=== PATIENT | male | born 1970 | race Caucasian/White ===

== ENCOUNTER 2019-08-11 14:23 | Outpatient (RCR) | payer MEDICARE, SELFPAY | END 2019-08-29 00:01 | LOC: WOUND 14:23 | PROVIDERS: Family Provider Nurse Practitioner; Visit Provider Surgery | DX: I73.9 Peripheral vascular disease, unspecified (principal); L97.312 Non-pressure chronic ulcer of right ankle with fat layer exposed | CPT/HCPCS: 29581; 99212 ==

== ENCOUNTER 2019-09-28 09:17 | Outpatient (RCR) | payer MEDICARE, SELFPAY ==
--- NOTE | 2019-09-21 12:51 | XRR_ITS ---
PROCEDURE INFORMATION: Exam: XR Right Tibia and Fibula Exam date and time: 09/21/2019 1:27 PM Age: 48 years old Clinical indication: Condition or disease; Other: Non healing ulcer; Additional info: Pain/redness/non healing ulcer, lateral/distal TECHNIQUE: Imaging protocol: XR Right tibia and fibula. Views: 2 views. COMPARISON: US soft tissue/extremity [id number] 09/21/2019 12:58 PM FINDINGS: Bones/joints: Negative for acute bony abnormality Soft tissues: There is diffuse soft tissue calcifications in the medial aspect of the lower leg XR/XR tibia fibula RT 2V [id number] IMPRESSION: No acute bone abnormality. Diffuse soft tissue calcifications lower leg
--- NOTE | 2019-09-21 12:51 | US_ITS ---
WS: [id number] ULTRASOUND SOFT TISSUES RIGHT leg HISTORY: EDEMA/PAIN/NON HEALING ULCER COMPARISON: None available. TECHNIQUE: 2-D and color Doppler imaging is submitted. Ultrasound over the area of nodularity corresponds to 2 chronic superficial thrombophlebitis of a cari icosity. There is thrombus and probably some associated calcium. US/US soft tissue/extremity [id number] IMPRESSION: Soft tissue nodularity corresponds to an area of superficial thrombophlebitis.
== END 2019-09-29 23:59 | disposition home or self-care (01) ==
LOC: RAD 09:17
PROVIDERS: Family Provider Nurse Practitioner; PCP Nurse Practitioner; Visit Provider Nurse Practitioner Family
DX: I87.2 Venous insufficiency (chronic) (peripheral) (principal); L97.822 Non-pressure chronic ulcer of other part of left lower leg with fat layer exposed
CPT/HCPCS: 29581; 73590; 76882; 99214; G0463

== ENCOUNTER 2019-10-26 09:39 | Outpatient (RCR) | payer MEDICARE, SELFPAY ==
--- NOTE | 2019-11-06 14:00 | CT_ITS ---
WS: [id number] CT ANGIOGRAPHY OF THE ABDOMINAL AORTA WITH RUNOFF TO THE ANKLES HISTORY: I87.2 - Venous insufficiency (chronic) (peripheral) TECHNIQUE: Arterial injection is performed during imaging to evaluate the aorta and runoff vessels to the ankles. MIP and volume rendering imaging has also been performed. All images are reviewed. All C T scans at [facility] use at least one of these dose optimization techniques: automated ex posure control; mA and/or kV adjustment per patient size (includes targeted exams where dose is match ed to clinical indication); or iterative reconstruction. Contrast: Omnipaque 350; 190 mL IV. DLP: 5576.02 mGy.cm COMPARISON: None available. Quality of this examination is limited due to patient's body habitus. Mild dependent changes at the lung bases. Very small layering LEFT pleural effusion. Heart size is s lightly enlarged. Small hiatal hernia. Gallbladder and spleen are negative. Pancreas and adrenal glan ds negative. Gallbladder is slightly contracted. Kidney size is normal. There is good enhancement eac h kidney. Several cortical cysts in the RIGHT kidney with the largest measuring 15 mm. Small inguinal lymph nodes. Small obturator lymph nodes. Largest lymph nodes measure up to 12 mm. Largest along the LEFT distal external iliac chain. Extensive calcifications in the soft tissues of the lower extremity. Aorta: Mild atherosclerosis of aorta. No aneurysm. Single-vessel renal arteries. Celiac axis, SMA and LIZA are patent. RIGHT lower extremity arterial system: Opacification is limited but there is no significant stenosis from the LEFT common iliac artery through the popliteal artery. Poor runoff to the ankles but this is in part limited by slow flow. LEFT lower extremity fracture system: LEFT common iliac artery through the popliteal artery is patent . No significant stenosis or occlusion. No aneurysm. Limited flow to the ankles inferior to the popli teal artery is predominantly due to delayed runoff and patient's size. There are scattered calcificat ions but no occlusions are identified.
== END 2019-10-28 23:59 | disposition home or self-care (01) ==
LOC: WOUND 09:39
PROVIDERS: Family Provider Nurse Practitioner; PCP Nurse Practitioner; Visit Provider Nurse Practitioner Family
DX: L97.822 Non-pressure chronic ulcer of other part of left lower leg with fat layer exposed (principal); I87.2 Venous insufficiency (chronic) (peripheral); I73.9 Peripheral vascular disease, unspecified; I70.0 Atherosclerosis of aorta
CPT/HCPCS: 11042; 29581; 87070; 87077; 87176; 87186; 87205; 99214; 99215; G0463

== ENCOUNTER 2019-11-01 21:47 | Inpatient (IN) | payer MEDICARE, SELFPAY ==
[2019-11-01] VITALS (7 sets, daily range): BP systolic 125; BP diastolic 77; PULSE 130; RESP 18–37; TEMP 37.7; O2SAT 85–94; BMI 36.5
--- NOTE | 2019-11-01 21:46 | ED_ITS ---
Entered by Amanda Luna, acting as scribe for Sulma Butler MD HPI - Seizure General: Chief Complaint: Seizure Stated Complaint: seizures Time Seen by Provider: 11/01/19 21:47 Source: EMS Mode of arrival: EMS Limitations: altered mental status (seizing) History of Present Illness: HPI Narrative: 48 y/o male presents to the ED with seizures. EMS states he is a known epileptic but has not had a seizure for the past year. Family called EMS at dinner time when they thought he was choking. Upon EMS arrival, they realized he was seizing. Pt takes Phenytoin 100mg daily. It is estimated that his first episode occurred around 2124. The episodes witnessed by EMS have lasted approx 2 min each. Upon arrival at [facility] [place], pt was in his 4th seizure. MD complaint: seizure Onset (ago): minute(s) (15) Witnessed: Yes - by EMS Trauma: No Seizure History: Yes Place: Home Associated symptoms: Deny chest pain, chills or fever(s) Review of Systems General: Reports: ROS unobtainable due to medical condition (seizing) Const: Denies: fever, chills, body aches or change in appetite Eyes: Denies: blurry vision or eye discomfort ENMT: Denies: throat pain or dental pain Card: Denies: chest pain Resp: Denies: shortness of breath GI: Denies: abdominal pain, nausea, vomiting or diarrhea : Denies: painful urination Musc: Denies: neck pain or back pain Skin/Breast: Denies: rash Neuro: Denies: headache Psych: Denies: depression Huseyin/Lymph: Denies: easy bruising All/Imm: Denies: hives PFS ED PFSH: Medical History (Updated 11/02/19 @ 01:17 by Sulma Butler MD) Hypertension Intellectual disability Leukocytosis Morbid obesity Nonhealing nonsurgical wound Peripheral vascular disease Seizure Venous stasis dermatitis Surgical History (Updated 10/22/19 @ 16:46 by Nelia Cabrera MD) S/P vein stripping Social History Smoking and tobacco status: unknown if ever smoked Alcohol intake: never Substance/Drug Use: never Household members: family History of recent travel: No Physical Exam Const: COMMON NORMALS: negative for oriented x3 EXAM LIMITATIONS: physical limitations (seizing) NUTRITIONAL APPEARANCE: obese HENMT: COMMON NORMALS: head/scalp atraumatic HEAD & SCALP: atraumatic Neck/C-Spine: COMMON NORMALS: supple Chest: COMMONS NORMALS: inspection of chest normal and palpation of chest normal Resp: COMMON NORMALS: normal respiratory effort, no retractions, no use of accessory muscles and clear to auscultation bilaterally AUSCULTATION: clear to auscultation bilaterally Cardio: COMMON NORMALS: regular rate, regular rhythm and no murmurs RATE: regular rate RHYTHM: regular rhythm GI: COMMON NORMALS: normal to inspection, nondistended, normoactive bowel sounds, soft to palpation, non-tender and no masses PALPATION: Yes soft Extremity: COMMON NORMALS: normal to inspection Neuro: COMMON NORMALS: negative for oriented x3 Skin: COMMON NORMALS: no wounds Course Vital Signs: Vital signs: Vital Signs Temperature 100 F H 11/01/19 21:50 Pulse Rate 73 11/02/19 00:27 Respiratory Rate 20 H 11/02/19 00:27 Blood Pressure 124/60 11/02/19 00:27 Pulse Oximetry 98 11/02/19 00:27 MDM - Seizure MDM Narrative: Medical decision making narrative: Patient presents here with seizure and was in epilepsy. Patient given multiple doses of Ativan and 1 g of Keppra. Patient's had no more seizure activity after the Keppra. Patient is now waking up and will respond to verbal stimuli. He is postictal. He is protecting his own airway now. Patient does have an elevated white count is likely due to his seizure. He does have wound to his left leg that is chronic in nature with maybe some mild cellulitis and will get blood cultures along with start vancomycin. Patient has no signs of meningitis. Spoke to hospitalist will admit to the ICU. Patient is on Dilantin and had a very low Dilantin level likely causing his seizure. Lab Data: Labs: Lab Results 11/01/19 11/01/19 11/01/19 Range/Units 21:55 22:40 22:41 WBC 20.9 H (4.0-10.0) 10^3/ uL RBC 4.69 (4.1-5.3) 10^6/u L Hgb 14.6 (11.7-16.6) g/dL Hct 44.7 (42.0-52.0) % MCV 95.3 H (80-94) fL MCH 31.1 (28.0-34.0) pg MCHC 32.7 (30.0-36.0) g/dL RDW 14.7 (12.1-15.1) % Plt Count 262 (130-400) 10^3/c mm MPV 9.8 (7.4-10.4) fL Neut % (Auto) 73.5 % Lymph % (Auto) 13.0 % [place] % (Auto) 7.7 % Eos % (Auto) 2.1 % Baso % (Auto) 0.4 % Neut # (Auto) 15.4 H (1.8-7.7) 10^3/u L Lymph # (Auto) 2.7 (0.8-4.8) 10^3/u L [place] # (Auto) 1.6 H (0.2-0.9) 10^3/u L Eos # (Auto) 0.4 (0.0-0.8) 10^3/u L Baso # (Auto) 0.1 (0.0-0.1) 10^3/u L Nucleated RBC % (a uto) 0 % Nucleated RBCs # 0.0 /100WBC Sodium 139 (136-145) mmol/L Potassium 4.4 (3.5-5.1) mmol/L Chloride 101 (98-107) mmol/L Carbon Dioxide 17 L (22-29) mmol/L Anion Gap 25.4 H (5-19) BUN 13 (6-20) mg/dL Creatinine 1.0 (0.7-1.2) mg/dL GFR Calculation 80.1 L (90-130) mL/min Glucose 161 H (65-115) mg/dL Calcium 10.0 (8.5-10.5) mg/dL Total Bilirubin 0.4 (0.15-1.2) mg/dL AST 30 (0-40) U/L ALT 19 (0-41) U/L Alkaline Phosphata se 120 (40-130) IU/L Total Protein 8.2 (6.6-8.7) g/dL Albumin 4.6 (3.5-5.2) g/dL Globulin 3.6 (1.3-4.6) g/dL Urine Color (Yellow) Urine Appearance (CLEAR) Urine pH (5-7) Ur Specific Gravit y (1.005-1.030) Urine Protein (Negative) Urine Glucose (UA) (Normal) Urine Ketones (Negative) Urine Blood (Negative) Urine Nitrate (Negative) Urine Bilirubin (NEGATIVE) Urine Urobilinogen (Negative) mg/dL Ur Leukocyte [place] (Negative) Urine RBC (0-2) /hpf Urine WBC (0-5) /hpf Ur Squamous Epith Cells (0-5) Amorphous Sediment Urine Bacteria (NONE) Fine Granular Cast s /lpf Urine Opiates Scre en (Negative) ng/mL Ur Barbiturates Sc reen (Negative) ng/mL Phenytoin 1.3 L (10-20) ug/mL Ur Phencyclidine S crn (Negative) ng/mL Ur Amphetamines Sc reen (Negative) ng/mL U Benzodiazepines Scrn (Negative) ng/mL Urine Cocaine Scre en (Negative) ng/mL U Marijuana (THC) Screen (Negative) ng/mL Influenza Type A A g Negative (Negative) POC Influenza B Ag Negative (Negative) 11/01/19 11/01/19 Range/Units 22:53 22:53 WBC (4.0-10.0) 10^3/ uL RBC (4.1-5.3) 10^6/u L Hgb (11.7-16.6) g/dL Hct (42.0-52.0) % MCV (80-94) fL MCH (28.0-34.0) pg MCHC (30.0-36.0) g/dL RDW (12.1-15.1) % Plt Count (130-400) 10^3/c mm MPV (7.4-10.4) fL Neut % (Auto) % Lymph % (Auto) % [place] % (Auto) % Eos % (Auto) % Baso % (Auto) % Neut # (Auto) (1.8-7.7) 10^3/u L Lymph # (Auto) (0.8-4.8) 10^3/u L [place] # (Auto) (0.2-0.9) 10^3/u L Eos # (Auto) (0.0-0.8) 10^3/u L Baso # (Auto) (0.0-0.1) 10^3/u L Nucleated RBC % (a uto) % Nucleated RBCs # /100WBC Sodium (136-145) mmol/L Potassium (3.5-5.1) mmol/L Chloride (98-107) mmol/L Carbon Dioxide (22-29) mmol/L Anion Gap (5-19) BUN (6-20) mg/dL Creatinine (0.7-1.2) mg/dL GFR Calculation (90-130) mL/min Glucose (65-115) mg/dL Calcium (8.5-10.5) mg/dL Total Bilirubin (0.15-1.2) mg/dL AST (0-40) U/L ALT (0-41) U/L Alkaline Phosphata se (40-130) IU/L Total Protein (6.6-8.7) g/dL Albumin (3.5-5.2) g/dL Globulin (1.3-4.6) g/dL Urine Color Yellow (Yellow) Urine Appearance Sl hazy (CLEAR) Urine pH 5 (5-7) Ur Specific Gravit y 1.020 (1.005-1.030) Urine Protein 2+ H (Negative) Urine Glucose (UA) Norm (Normal) Urine Ketones Negative (Negative) Urine Blood Trace H (Negative) Urine Nitrate Negative (Negative) Urine Bilirubin Neg (NEGATIVE) Urine Urobilinogen Norm (Negative) mg/dL Ur Leukocyte [place] Negative (Negative) Urine RBC 0-4 H (0-2) /hpf Urine WBC None (0-5) /hpf Ur Squamous Epith Cells 0-4 H (0-5) Amorphous Sediment 2+ Urine Bacteria Trace (NONE) Fine Granular Cast s 5-10 H /lpf Urine Opiates Scre en Negative (Negative) ng/mL Ur Barbiturates Sc reen Positive H (Negative) ng/mL Phenytoin (10-20) ug/mL Ur Phencyclidine S crn Negative (Negative) ng/mL Ur Amphetamines Sc reen Negative (Negative) ng/mL U Benzodiazepines Scrn Negative (Negative) ng/mL Urine Cocaine Scre en Negative (Negative) ng/mL U Marijuana (THC) Screen Negative (Negative) ng/mL Influenza Type A A g (Negative) POC Influenza B Ag (Negative) Imaging Data^: CXR: Attestation: I personally reviewed and interpreted this imaging study as follows: My impression: no acute abnormality CT Head: Attestation: I personally reviewed and interpreted this imaging study as follows: Radiologist's impression: Signed Patient: Jaziel Willis Unit #: [id number] : 1970 679 Age/Sex: 48 / M ADM Date: 11/01/19 Loc: ER Room/Bed: Attending Dr: Ordering Provider/Ordering MD: Sulma Butler MD Date of Service: 11/01/19 Procedure(s): CT head wo con* [id number] Accession Number(s): [id number] Report Number: [id number] PROCEDURE INFORMATION: Exam: CT Head Without Contrast Exam date and time: 11/01/2019 10:24 PM Age: 48 years old Clinical indication: Other: Seizure TECHNIQUE: Imaging protocol: Computed tomography of the head without contrast. Total DLP: 1736.4 mGy-cm Radiation optimization: All CT scans at this facility use at least one of these dose optimization techniques: automated exposure control; mA and/or kV adjustment per patient size (includes targeted exams where dose is matched to clinical indication); or iterative reconstruction. COMPARISON: CT head wo con* [id number] 03/16/2019 9:59 PM FINDINGS: Brain: Normal. No hemorrhage. Unremarkable white matter. No mass effect. Ventricles: Normal. No ventriculomegaly. Bones/joints: Unremarkable. No acute fracture. Sinuses: There is patchy mucosal thickening in the sinuses. Mastoid air cells: Visualized mastoid air cells are well aerated. Soft tissues: Unremarkable. CT/CT head wo con* [id number] IMPRESSION: No acute intracranial abnormality. EKG Data^: EKG 1: Attestation: I personally reviewed and interpreted this EKG as follows: EKG interpretation date: 11/01/19 EKG interpretation time: 21:55 Interpretation: sinus tach hr [address] or t wave abnormalities qrs 101 qtc 375 Critical Care Time Critical Care Time: Critical Care Time: Yes Total Critical Care Time: 35 Attestation: This case had a high probability of a clinically significant, sudden, or life threatening deterioration of this patient's condition which required my full and direct attention, intervention and personal management. Discharge Plan Discharge Patient Disposition: Admitted As Inpatient Admit Provider: Nelia Castillo Clinical Impression: Epileptic seizure Qualifiers: Epilepsy type: unspecified Intractability: not intractable Status epilepticus: with status epilepticus Qualified Code(s): G40.901 - Epilepsy, unspecified, not intractable, with status epilepticus Condition: Stable Referrals: Candi Latif, [facility] MAORI-C [Primary Care Provider] - Coding Level of Care Code ED Franchise Field Consultant for Chg Fwd Exam Comprehensive The documentation recorded by the Jeremy collier Ashley, accurately reflects the service I personally performed and the decisions made by , Sulma Butler MD Nov 01, 2019 21:47
--- NOTE | 2019-11-01 21:49 | XR_ITS ---
WS: [id number] XR chest 1V portable [id number] REASON FOR EXAM: seizure FINDINGS: Comparisons were made to March 16, 2019. The heart is not grossly enlarged. There is no definite pulmonary edema, pneumonia, pleural effusion. The hilum and apices normal. There is mild scoliotic curve present. XR/XR chest 1V portable [id number] IMPRESSION: Negative chest for acute pathology.
--- NOTE | 2019-11-01 21:49 | CTR_ITS ---
PROCEDURE INFORMATION: Exam: CT Head Without Contrast Exam date and time: 11/01/2019 10:24 PM Age: 48 years old Clinical indication: Other: Seizure TECHNIQUE: Imaging protocol: Computed tomography of the head without contrast. Total DLP: 1736.4 mGy-cm Radiation optimization: All CT scans at this facility use at least one of these dose optimization techniques: automated exposure control; mA and/or kV adjustment per patient size (includes targeted exams where dose is matched to clinical indication); or iterative reconstruction. COMPARISON: CT head wo con* [id number] 03/16/2019 9:59 PM FINDINGS: Brain: Normal. No hemorrhage. Unremarkable white matter. No mass effect. Ventricles: Normal. No ventriculomegaly. Bones/joints: Unremarkable. No acute fracture. Sinuses: There is patchy mucosal thickening in the sinuses. Mastoid air cells: Visualized mastoid air cells are well aerated. Soft tissues: Unremarkable. CT/CT head wo con* [id number] IMPRESSION: No acute intracranial abnormality. Radiation Dose CTDIVOL = (mGy): DLP = 1736.4 (mGy-cm)
[2019-11-01] MEDS: LORazepam 2 mg/mL INJ 1 mL (21:59)
--- NOTE | 2019-11-01 22:01 | PC.NURSE ---
EKG done at 2155 and shown to ER doctor
[2019-11-01 22:22] LABS: Alanine Aminotransferase 19 U/L (0-41); Albumin Level 4.6 g/dL (3.5-5.2); Alkaline Phosphatase 120 IU/L (40-130); Anion Gap 25.4 (5-19); Blood Urea Nitrogen 13 mg/dL (6-20); Carbon Dioxide 17 mmol/L (22-29); Chloride 101 mmol/L (98-107); Globulin 3.6 g/dL (1.3-4.6); Glomerular Filtration Rate 80.1 mL/min (90-130); Glucose 161 mg/dL (65-115); Phenytoin Dilantin 1.3 ug/mL (10-20); Potassium 4.4 mmol/L (3.5-5.1); Sodium 139 mmol/L (136-145); Total Bilirubin 0.4 mg/dL (0.15-1.2); Total Protein 8.2 g/dL (6.6-8.7)
[2019-11-01 22:23] LABS: Aspartate Amino Transferase 30 U/L (0-40)
[2019-11-01] MEDS: LORazepam 2 mg/mL INJ 1 mL IVP (22:34)
[2019-11-01 22:51] LABS: Basophils # 0.1 10^3/uL (0.0-0.1); Basophils % 0.4 %; Eosinophils # 0.4 10^3/uL (0.0-0.8); Eosinophils % 2.1 %; Hematocrit 44.7 % (42.0-52.0); Hemoglobin 14.6 g/dL (11.7-16.6); Lymphocytes # 2.7 10^3/uL (0.8-4.8); Mean Corpuscular HGB Conc 32.7 g/dL (30.0-36.0); Mean Corpuscular Hemoglobin 31.1 pg (28.0-34.0); Mean Corpuscular Volume 95.3 fL (80-94); Mean Platelet Volume 9.8 fL (7.4-10.4); Monocytes # 1.6 10^3/uL (0.2-0.9); Monocytes % 7.7 %; Neutrophils # 15.4 10^3/uL (1.8-7.7); Neutrophils % 73.5 %; Nucleated Red Blood Cells % 0 %; Platelet Count 262 10^3/cmm (130-400); Red Blood Count 4.69 10^6/uL (4.1-5.3); Red Cell Distribution Width 14.7 % (12.1-15.1); White Blood Count 20.9 10^3/uL (4.0-10.0)
[2019-11-01] MEDS: acetaminophen 650 mg Supp PR (23:06)
[2019-11-01 23:22] LABS: Influenza A by IFA Negative (Negative); Influenza B by IFA Negative (Negative)
[2019-11-01] MEDS: sodium chloride 0.9% 1,000 ML 999 ML IV (23:22)
[2019-11-02] VITALS (38 sets, daily range): BP systolic 67–142; BP diastolic 43–95; PULSE 65–92; RESP 7–29; TEMP 37–38.1; O2SAT 84–100
[2019-11-02 00:18] LABS: Add Urine Microscopic? YES; Bilirubin Urine Neg (NEGATIVE); Blood Urine Trace (Negative); Glucose Urine UA Norm (Normal); Ketones Urine Negative (Negative); Leukocyte Esterase Urine Negative (Negative); Nitrate Urine Negative (Negative); Protein Urine 2+ (Negative); Urine Appearance SL Hazy (CLEAR); Urine Color Yellow (Yellow); Urobilinogen Urine Norm (Negative); pH Urine 5 (5-7)
[2019-11-02 00:20] LABS: Add Urine Culture? No; Amorphous Sediment Urine 2+; Bacteria Urine TRACE; RBC Urine 0-4 /hpf (0-2); Squamous Epithelial Cell Urine 0-4 (0-5)
[2019-11-02 00:26] LABS: Amphetamines Screen Urine Negative (Negative); Barbiturates Screen Urine Positive (Negative); Benzodiazepines Screen Urine Negative (Negative); Cocaine Screen Urine Negative (Negative); Opiate Screen Urine Negative (Negative); PCP Screen Urine Negative (Negative); THC Screen Urine Negative (Negative)
--- NOTE | 2019-11-02 01:12 | P.HP_ITS ---
Providers/Chief Complaint Primary Care Provider: Candi Latif, CAESARC Chief Complaint: seizures History of Present Illness Jaziel Willis is a 48 year old male who carries diagnosis of intellectual disability, venous stasis dermatitis, peripheral vascular disease, seizures, was brought in today by EMS for recurrent seizures. Family is at the bedside who is endorsing that he was in his usual state of health until today he started complaining of headache and after that he had 2 episodes of grand mal tonic- clonic seizures at home at that time EMS was called, and route to the hospital he had 2 more episodes, he was given 4 mg of Ativan and 1 g of Keppra by ER physician. He was not intubated, his seizures subsided and he started to wake up after few hours and decision was made to admit to ICU for further monitoring. As per the family he was started on ciprofloxacin for his leg wounds. They have not noticed any fever, chills, diarrhea, vomiting, flulike symptoms. Patient currently is drowsy, opens his eyes on sternal rub and goes back to sleep Diagnostics in ER showed normal hemodynamics, low phenytoin level, normal e lectrolytes, CT head negative, Urinalysis and culture sent Review of Systems General: Reports: ROS unobtainable due to medical condition and ROS unobtainable due to mental status Medications/Allergies Allergies Allergy/AdvReac Type Severity Reaction Status Date / Time No Known Allergies Allergy Unverified 10/19/19 10:53 PFSH Acute PFSH: Medical History (Updated 11/02/19 @ 01:39 by Nelia Castillo MD) Hypertension Intellectual disability Leukocytosis Morbid obesity Nonhealing nonsurgical wound Peripheral vascular disease Seizure Venous stasis dermatitis Surgical History (Updated 10/22/19 @ 16:46 by Nelia Cabrera MD) S/P vein stripping Family History (Updated 11/02/19 @ 01:16 by Nelia Castillo MD) Father Cancer Lung cancer Mother CAD (coronary artery disease) Other Diabetes Heart disease Social History (Updated 11/02/19 @ 01:16 by Nelia Castillo MD) Smoking and tobacco status: unknown if ever smoked Alcohol intake: never Substance/Drug Use: never Household members: family History of recent travel: No Vitals/I&O/Wt Last Vital Signs Temp 100 F H 11/01/19 21:50 Pulse 73 03/05/20 00:27 Resp 20 H 11/02/19 00:27 BP 124/60 11/02/19 00:27 Pulse Ox 98 11/02/19 00:27 11/01/19 11/01/19 11/02/19 14:59 22:59 06:59 Intake Total 110 / 110 Balance 110 / 110 Weight last 48 hrs Weight 136.078 kg Physical Exam Narrative: EXAM NARRATIVE: Obese male currently very drowsy due to Keppra and Ativan Normal hemodynamics Low-grade temperature He has chronic wound stasis dermatitis of lower extremities bilaterally S1, S2 no active signs of heart failure or murmur Abdomen soft, distended, bloated, with obesity positive, Neurological assessment not able to be done Skin is showing venous stasis dermatitis with ulcer Saenz catheter draining cloudy urine Lung auscultation is positive for bilateral breath sounds without adventitious sounds, upper respiratory tract sound resonance Data : 11/01/19 22:41 11/01/19 21:55 Micro: Microbiology 11/01/19 22:49 Blood Culture - Preliminary Blood SPECIMEN COLLECTED 11/01/19 22:49 Blood Culture - Preliminary Blood SPECIMEN COLLECTED A&P Assessment and plan (1) Breakthrough seizure: Status: Acute Code(s): G40.919 - Epilepsy, unspecified, intractable, without status epilepticus (2) Peripheral vascular disease: Status: Acute Code(s): I73.9 - Peripheral vascular disease, unspecified (3) Venous stasis dermatitis: Status: Acute Code(s): I87.2 - Venous insufficiency (chronic) (peripheral) (4) UTI (urinary tract infection): Status: Acute Code(s): N39.0 - Urinary tract infection, site not specified Additional A&P Information Breakthrough seizures Phenytoin level is low Patient started taking ciprofloxacin which might have interacted with his antiepileptics Currently I would continue his IV Keppra Once he is more awake we will start phenytoin No electrolyte abnormality, CT head negative, I would get a blood gas and start him on ceftriaxone for possible UTI Persistent leukocytosis: Followed by Dr. Coughlin who is managing conservatively for now, JOHANA STAT negative Venous stasis dermatitis with peripheral vascular disease Dr. Hernandez has recommended CTA with runoff which is pending Patient is following up with wound clinic I would hold ciprofloxacin for now Hypertension: I would continue metoprolol Full code Advance diet once he is more awake DVT prophylaxis Lovenox Attestations Medical Necessity Statement*: Patient needs ICU care for breakthrough seizures management Time Spent in Patient Care: 30 Critical Care Time: Critical Care Time (min): 30 Coding Level of Care Code Acute Jacquard Plate Maker for Chg Fwd Diagnoses Breakthrough seizure G40.919 Peripheral vascular disease I73.9 Venous stasis dermatitis I87.2 UTI (urinary tract infection) N39.0
[2019-11-02] MEDS: sodium chloride 0.9% 1,000 ML 999 ML IV (01:25)
[2019-11-02] MEDS: enoxaparin 40 mg/0.4 mL Syringe SUBCUT (02:32)
[2019-11-02] MEDS: cefTRIAXone 1,000 MG in sodium chloride 0.9% (plus) 50 ML 100 MG IV (02:32)
[2019-11-02] MEDS: LORazepam 2 mg/mL INJ 1 mL IVP (02:33)
[2019-11-02] MEDS: LORazepam 2 mg/mL INJ 1 mL (02:37)
[2019-11-02 03:08] LABS: ABG PCO2 33.8 mmHg (35-45); ABG PH Result 7.41 (7.35-7.45); Arterial Blood Gas Hematocrit 44.8 % (42-52); Base Excess ABG -2.6 mmol/L (-2.0-2.0); Blood Gas Sample Site Brachial, right; Blood Gas Sample Type Arterial; HCO3 ABG 21.3 mmol/L (22-26); PO2 ABG 78.5 mmHg (80.0-100.0)
--- NOTE | 2019-11-02 03:09 | PC.NURSE ---
0216 upon admission to ICU, patient was awake and trying to get out of bed, pull out IVs and pull off compliance monitor. reorientation preformed by nurses in room. patient still not able to relax in bed. called and informed of patients behavior. order for ativan 2mg IV given. 0311 patient is now resting in bed. family at bedside.
[2019-11-02 03:12] LABS: Oxygen Device room air
[2019-11-02 04:25] LABS: Basophils # 0.1 10^3/uL (0.0-0.1); Basophils % 0.2 %; Eosinophils % 0.2 %; Hematocrit 42.7 % (42.0-52.0); Hemoglobin 13.8 g/dL (11.7-16.6); Lymphocytes # 1.4 10^3/uL (0.8-4.8); Lymphocytes % 5.8 %; Mean Corpuscular HGB Conc 32.3 g/dL (30.0-36.0); Mean Corpuscular Hemoglobin 31.3 pg (28.0-34.0); Mean Corpuscular Volume 96.8 fL (80-94); Mean Platelet Volume 11.5 fL (7.4-10.4); Monocytes # 2.1 10^3/uL (0.2-0.9); Monocytes % 8.4 %; Neutrophils % 84.5 %; Nucleated Red Blood Cells % 0 %; Platelet Count 141 10^3/cmm (130-400); Red Blood Count 4.41 10^6/uL (4.1-5.3); Red Cell Distribution Width 14.6 % (12.1-15.1); White Blood Count 24.9 10^3/uL (4.0-10.0)
[2019-11-02 04:38] LABS: Lactic Acid level (Lactate) 2.7 mmol/L (0.5-2.2)
[2019-11-02] MEDS: OLANZapine 10 mg VIAL IM (05:07)
[2019-11-02 05:40] LABS: Slide Review Slide Review Perform
[2019-11-02 05:41] LABS: ABG PCO2 33.8 mmHg (35-45); ABG PH Result 7.41 (7.35-7.45); Arterial Blood Gas Hematocrit 43.5 % (42-52); Base Excess ABG -2.6 mmol/L (-2.0-2.0); Blood Gas Sample Site Brachial, right; Blood Gas Sample Type Arterial; HCO3 ABG 21.3 mmol/L (22-26); Oxygen Device ROOM AIR; PO2 ABG 82.5 mmHg (80.0-100.0)
[2019-11-02 06:57] LABS: Anion Gap 14.8 (5-19); Blood Urea Nitrogen 13 mg/dL (6-20); Calcium 8.7 mg/dL (8.5-10.5); Carbon Dioxide 22 mmol/L (22-29); Chloride 105 mmol/L (98-107); Glomerular Filtration Rate 120.9 mL/min (90-130); Glucose 129 mg/dL (65-115); Osmolality Calculated 284 mOsm/kg (285-295); Potassium 3.8 mmol/L (3.5-5.1); Sodium 138 mmol/L (136-145)
--- NOTE | 2019-11-02 11:53 | PC.CHAP ---
Pastoral Care Encounter/Spiritual Assessment Type of Contact [] Declined geographic information system analyst visit [] Patient/Family/Request visit [] Outpatient visit [] Follow-up visit [] Physician referral [] Code/Alert [x] Routine visit [] Staff referral [] Actively dying [] Patient sleeping [] Family support [] [] Out of room [] Palliative care [] [] Receiving care in room [] Pre-surgical visit [] Trauma [] Long length of stay [] ICU visit [] Other: Relational/Emotional Strength [x] Patient feels connected with others/family/visitors/staff [] Distress [] Loneliness/isolation [] Abandonment Spirituality of Patient [] Person of Jaycee [] Attends [employer] of their [place]cee [] Believes in Prayer [] Reads Bible or Christianity materials [] There are Spiritual issues to be addressed Receiving Clerk Interventions [x] Prayer [x] Active listening []x Non-anxious presence [] Spiritual/emotional support [] Crisis/trauma care [] Spiritual counseling [] Bereavement support [] Provided bereavement packet [] Provided Bible/devotional materials [] Provided toy/stuffed animal, coloring book to patient or family member [] Provided Communion [] Anointing/[place] [] Salvation [] Completed spiritual assessment [] Other: Impact on Illness or Injury [] Angry [] Fearful [] Anxious [] Often cries [] Exhaustion [] Unable to work [] Unable to attend adventist [] Unable to walk/stand [] Unable to read [] Unable to drive [] Unable to eat/drink [] Unable to sleep [] Unable to be with family [] Patient intubated [x] Other: Summary Patient was awake and conscious but non responsive. Patient had his mother and niece with him. Time spent with patient 3-minutes
--- NOTE | 2019-11-02 12:48 | USCV_ITS ---
Jaziel Willis Age: 48 Gender: M : 1970 Exam Date: 11/02/2019 13:22 Ordering Phys: Mg Wilson MD Technologist: Herlinda Kent Exam Location: [facility] [place] Indication: CELLULITIS OPEN WOUND MEDIAL RT LOWER LEG HISTORY: CELLULITIS PROCEDURES: The venous duplex Doppler examination of both lower extremities was performed in the standard fashion. The following venous structures were evaluated: common femoral vein, profunda vein, proximal portion of the greater saphenous vein, superficial femoral vein, and the popliteal vein. In addition, the posterior tibial and peroneal trunk were evaluated. Serial compression, augmentation maneuvers, and spectral Doppler flow evaluation were performed. FINDINGS: No DVT seen in any vessel examined. Suggestion of a superficial thrombus in rt post calf??? CONCLUSIONS No evidence of right lower extremity DVT. No evidence of left lower extremity DVT. Calcification R posterior calf may represent chronic calcified varicosity or chronic superificial vein thrombus Corwin Echeverria MD (Electronically Signed) Final Date: 03 November 2019 11:02 S
--- NOTE | 2019-11-02 12:55 | PM.PN ---
Subjective Subjective: Interval history: Admitted overnight. Labs noted. On evaluation patient's family sitting bedside. They state patient is very compliant with his medications. He was recently started on ciprofloxacin for his lower limb ulcer which has been treated with wound care for many months. On evaluation patient is drowsy but arousable lying comfortably in bed. T-max 100.1. Vitals have remained stable. Has not had any further seizure-like activity. Vitals/I&O/Wt Last Vital Signs Temp 100.1 F H 11/02/19 06:00 Pulse 80 11/02/19 06:00 Resp 23 H 11/02/19 06:00 BP 123/50 11/02/19 06:00 Pulse Ox 95 11/02/19 06:00 11/01/19 11/02/19 11/02/19 22:59 06:59 14:59 Intake Total 1510 / 1510 110 / 110 Output Total 550 / 550 Balance 960 / 960 110 / 110 Weight last 48 hrs Weight 136.078 kg Physical Exam Narrative: EXAM NARRATIVE: General: No acute distress, somnolent, but arousable. HEENT: PERRLA, pupils bilaterally equal and reactive Chest: Normal vesicular breath sounds, no added sounds, equal good air entry bilaterally CVS: S1-S2 regular, no murmurs, no tachycardia, no gallops, no rubs Abdomen: Soft, nontender, no organomegaly, bowel sounds present Neuro: Somnolent but arousable moving all of his limbs, no facial deformity, pupils bilaterally equal and reactive. Extremities: Patient does have a quarter size of well covered healing ulcer on the medial side of his calf with surrounding erythema. Patient also has well scabbed ulcer on the left posterior calf with surrounding erythema. Data : 11/02/19 04:00 11/02/19 06:19 Micro: Microbiology 11/01/19 22:49 Blood Culture - Preliminary Blood SPECIMEN COLLECTED 11/01/19 22:49 Blood Culture - Preliminary Blood SPECIMEN COLLECTED A&P Assessment and plan (1) Breakthrough seizure: Status: Acute Code(s): G40.919 - Epilepsy, unspecified, intractable, without status epilepticus (2) Peripheral vascular disease: Status: Acute Code(s): I73.9 - Peripheral vascular disease, unspecified (3) Venous stasis dermatitis: Status: Acute Code(s): I87.2 - Venous insufficiency (chronic) (peripheral) (4) UTI (urinary tract infection): Status: Acute Code(s): N39.0 - Urinary tract infection, site not specified Additional A&P Information Status epilepticus: Breakthrough seizures As per the family patient is compliant with his medications. Phenytoin level is low. CT head is negative, no electrolyte abnormalities, blood gas was normal on admission. Check Keppra levels. Patient started taking ciprofloxacin which might have interacted with his antiepileptics Continue with Keppra 1 g twice daily. Case discussed with Dr. Forrester, given the fact that his phenytoin levels are low we will give him 1 g phenytoin followed by 100 mg every 8 hourly which is more than his home dose of twice daily. No electrolyte abnormality, CT head negative, I would get a blood gas and start him on ceftriaxone for possible UTI Persistent leukocytosis: Followed by Dr. Coughlin who is managing conservatively for now, JOHANA STAT negative No signs of infection or sepsis right now. Check procalcitonin. Was started on ceftriaxone last night so we will continue for same. MRSA swab. Venous stasis dermatitis with peripheral vascular disease: Dr. Cabrera has recommended CTA with runoff which is pending. As per family it was due to be done on coming November 05. Patient is following up with wound clinic Bilateral lower limbs ultrasound. Check ESR, CRP. Hypertension: Blood pressure well maintained. Patient is n.p.o. because somnolence. Switch his oral metoprolol to 5 mg IV every 4 hours as needed for systolic blood pressure of more than 110 with a heart rate of more than 80 bpm. Full code Advance diet once he is more awake. N.p.o. for now DVT prophylaxis Lovenox Attestations Medical Necessity Statement*: Status epilepticus Time Spent in Patient Care: Greater than 35 minutes (>than 50% of time spent in counselling and/or direct pt care on unit). Coding Level of Care Code Acute Corporate Travel Expert for Antonio Avila Diagnoses Breakthrough seizure G40.919 Peripheral vascular disease I73.9 Venous stasis dermatitis I87.2 UTI (urinary tract infection) N39.0
[2019-11-02] MEDS: sodium chloride 0.9% 1,000 ML 100 ML IV (13:10)
[2019-11-02 13:46] LABS: Lactate (Lactic Acid level) 1.5 mmol/L (0.5-2.2)
[2019-11-02 13:55] LABS: Procalcitonin 0.15 ng/mL (0-0.5)
[2019-11-03] VITALS (11 sets, daily range): BP systolic 100–135; BP diastolic 57–94; PULSE 63–92; RESP 4–25; TEMP 36.8; O2SAT 78–97
[2019-11-03] MEDS: enoxaparin 40 mg/0.4 mL Syringe SUBCUT (02:01)
[2019-11-03] MEDS: cefTRIAXone 1,000 MG in sodium chloride 0.9% (plus) 50 ML 100 MG IV (02:01)
[2019-11-03] MEDS: sodium chloride 0.9% 1,000 ML 100 ML IV ×2 (02:02→07:58)
[2019-11-03 05:07] LABS: Basophils % 0.1 %; Eosinophils # 0.4 10^3/uL (0.0-0.8); Eosinophils % 2.3 %; Hematocrit 39.6 % (42.0-52.0); Hemoglobin 13.4 g/dL (11.7-16.6); Lymphocytes # 3.3 10^3/uL (0.8-4.8); Lymphocytes % 20.1 %; Mean Corpuscular HGB Conc 33.8 g/dL (30.0-36.0); Mean Corpuscular Hemoglobin 32.7 pg (28.0-34.0); Mean Corpuscular Volume 96.6 fL (80-94); Mean Platelet Volume 10.1 fL (7.4-10.4); Monocytes # 1.4 10^3/uL (0.2-0.9); Monocytes % 8.4 %; Neutrophils # 11.2 10^3/uL (1.8-7.7); Neutrophils % 68.6 %; Nucleated Red Blood Cells % 0 %; Platelet Count 168 10^3/cmm (130-400); Red Cell Distribution Width 14.6 % (12.1-15.1); White Blood Count 16.4 10^3/uL (4.0-10.0)
[2019-11-03 05:28] LABS: Alanine Aminotransferase 10 U/L (0-41); Albumin Level 3.2 g/dL (3.5-5.2); Alkaline Phosphatase 73 IU/L (40-130); Anion Gap 12.7 (5-19); Aspartate Amino Transferase 17 U/L (0-40); Blood Urea Nitrogen 10 mg/dL (6-20); Calcium 8.7 mg/dL (8.5-10.5); Carbon Dioxide 23 mmol/L (22-29); Chloride 108 mmol/L (98-107); Globulin 3.2 g/dL (1.3-4.6); Glomerular Filtration Rate 144.4 mL/min (90-130); Glucose 95 mg/dL (65-115); Potassium 3.7 mmol/L (3.5-5.1); Sodium 140 mmol/L (136-145); Total Bilirubin 0.6 mg/dL (0.15-1.2); Total Protein 6.4 g/dL (6.6-8.7)
--- NOTE | 2019-11-03 12:39 | P.DS_ITS ---
Discharge Providers Date of Admission: 11/02/19 00:57 Date of Discharge: November 03, 2019 Attending Provider at Admission: Nelia Castillo MD Attending Provider at Discharge: Osmar Jimenez Primary Care Provider: NIRANJAN Drummond Diagnoses at Discharge Discharge Diagnosis (1) Breakthrough seizure: Status: Acute (2) Peripheral vascular disease: Status: Acute (3) Venous stasis dermatitis: Status: Acute (4) UTI (urinary tract infection): Status: Acute Reason for Visit Reason for Visit: Reason For Visit: seizures Hospital Course Hospital Course: Pleasant 48-year-old gentleman with chronic intellectual disability, with history of seizure and status blood gas, following with neurology Dr. Forrester in office, under care of his family, with peripheral vascular disease seen by wound care as well as cardiology recently with plans for CTA on Wednesday due to chronic nonhealing left lower extremity ulcer for which was recently started on ciprofloxacin due to MSSA. He was admitted due to altered mental status with breakthrough seizure which improved after treatment with Ativan and Keppra. His phenytoin level was found low. At this time given expected suppression by ciprofloxacin discussed with his family dose will be increased to 100 mg 3 times a day. Please continue to work with him with regards to follow-up level, and further dose adjustments, as well as dose decrease after antibiotic therapy is complete. Noted to have leukocytosis which is chronic per discussion with his family. Does have mild erythema no healing ulcer on the right lower extremity, with dopplerable pulses, otherwise no sign of significant infection. Urinalysis unremarkable. No sign of pneumonia. There have been no GI or other integumentary complaints. He is currently feeling well. Procalcitonin is low. Leukocytosis elevation does not appear to be related to acute infection. Continue follow-up with hematology in office. Physical Exam Const: COMMON NORMALS: no apparent distress OTHER: Pleasant, short answers. Follows commands. HENMT: COMMON NORMALS: oropharynx normal Neck/C-Spine: COMMON NORMALS: no JVD Resp: COMMON NORMALS: normal respiratory effort and clear to auscultation bilaterally AUSCULTATION: clear to auscultation bilaterally Cardio: COMMON NORMALS: no JVD, regular rhythm, S1 normal heart sound, S2 nor mal heart sound and no murmurs RHYTHM: regular rhythm HEART SOUNDS: S1 normal and S2 normal GI: COMMON NORMALS: normal to inspection, nondistended, normoactive bowel sounds, soft to palpation and non-tender PALPATION: Yes soft Extremity: COMMON NORMALS: no joint enlargement NARRATIVE EXTREMITY EXAM: trace edemema Neuro: COMMON NORMALS: moves all extremities Skin: LESIONS: lesion noted (Ulcer L medial ankle. Limited drainage. Mild surrounding erythema. ) OTHER: Chronic bilateral lower extremity venous stasis dermatitis. Discharge Data Data Completed and Pending: Completed Studies During Hospitalization Category Date Time Status CT head wo con* 7 0450 Urgent Cat Scan 11/01/19 21:49 Completed XR chest 1V jamel ble [id number] Urgent Exams 11/01/19 21:49 [place] [id number] Urgent Ultrasound 11/02/19 12:48 Completed Pending at discharge Category Date Time Status Blood Culture Sta t Lab 11/01/19 22:49 Results Levetiracetam Kep pra Routine Lab 11/02/19 13:24 Received Labs from last 24 hours 11/03/19 11/03/19 11/02/19 04:40 04:40 13:24 WBC 16.4 H RBC 4.10 Hgb 13.4 Hct 39.6 L MCV 96.6 H MCH 32.7 MCHC 33.8 RDW 14.6 Plt Count 168 MPV 10.1 Neut % (Auto) 68.6 Lymph % (Auto) 20.1 [place] % (Auto) 8.4 Eos % (Auto) 2.3 Baso % (Auto) 0.1 Neut # (Auto) 11.2 H Lymph # (Auto) 3.3 [place] # (Auto) 1.4 H Eos # (Auto) 0.4 Baso # (Auto) 0.0 Nucleated RBC % (a uto) 0 Nucleated RBCs # 0.0 Sodium 140 Potassium 3.7 Chloride 108 H Carbon Dioxide 23 Anion Gap 12.7 BUN 10 Creatinine 0.6 L GFR Calculation 144.4 H Glucose 95 Lactate 1.5 Calcium 8.7 Total Bilirubin 0.6 AST 17 ALT 10 Alkaline Phosphata se 73 Total Protein 6.4 L Albumin 3.2 L Globulin 3.2 Procalcitonin 11/02/19 13:24 WBC RBC Hgb Hct MCV MCH MCHC RDW Plt Count MPV Neut % (Auto) Lymph % (Auto) [place] % (Auto) Eos % (Auto) Baso % (Auto) Neut # (Auto) Lymph # (Auto) [place] # (Auto) Eos # (Auto) Baso # (Auto) Nucleated RBC % (a uto) Nucleated RBCs # Sodium Potassium Chloride Carbon Dioxide Anion Gap BUN Creatinine GFR Calculation Glucose Lactate Calcium Total Bilirubin AST ALT Alkaline Phosphata se Total Protein Albumin Globulin Procalcitonin 0.15 Vitals: Last Vital Signs Temp 98.3 F 11/03/19 02:00 Pulse 72 11/03/19 10:00 Resp 25 H 11/03/19 10:00 BP 135/78 11/03/19 10:00 Pulse Ox 78 L 11/03/19 05:00 Discharge Plan Discharge Patient Disposition: Home, Self-Care Condition: Stable Prescriptions: Continued levetiracetam [Keppra] 1,000 mg tablet 1,000 mg PO BID RF: 0 furosemide [Lasix] 20 mg tablet 40 mg PO DAILY RF: 0 trazodone 100 mg tablet 100 mg PO BEDTIME RF: 0 metoprolol succinate 50 mg Tablet Extended Release 24 Hr 50 mg PO DAILY RF: 0 ciprofloxacin HCl 500 mg Tablet 500 mg PO Q12H RF: 0 Changed phenytoin sodium extended 100 mg PO Q8H Qty: 90 RF: 0 Discharge Orders: Discharge Order (Routine); Ordered 11/03/19 Ordered By: Osmar Jimenez Referrals: Wound Care [Provider Group] - 1 week Amy Forrester MD [Physician] - 1 week (Breakthrough seizure, SE) Candi Latif, CEMENTING BULK MATERIAL OPERATOR-C [Primary Care Provider] - 4-7 days Nelia Cabrera MD [Physician] - (Follow up after CTA (ordered by cardiology).) Erik Coughlin MD [Hospitalist] - (Follow up as before for chronic leukocytosis.) Discharge Diet: Regular Activity Restrictions/Additional Instructions: Continue follow-up with wound care clinic. Antibiotic he is currently on may depress levels of his seizure medication phenytoin. Please work with primary care provider to follow-up again the levels after dose has been increased. Dose may then need to be decreased again after his antibiotic is complete. Discharge Attestations Time Spent in Discharge Care*: greater than 30 min Quality Metrics Clinical Quality Measures During this hospital stay, did patient experience: None Coding Level of Care Code Acute Territory Sales Manager Medical for [employer] Diagnoses Breakthrough seizure G40.919 Peripheral vascular disease I73.9 Venous stasis dermatitis I87.2 UTI (urinary tract infection) N39.0
[2019-11-05 23:16] LABS: Levetiracetam Keppra 13.2 mcg/mL
== END 2019-11-03 14:30 | disposition home or self-care (01) | DRG 101 ==
LOC: ER 11-02 01:17 → ICU 11-02 01:22
PROVIDERS: Student in an Organized Health Care Education/Training Program; Admitting Provider Internal Medicine; Emergency Provider Emergency Medicine; Family Provider Nurse Practitioner; PCP Nurse Practitioner; Visit Provider Internal Medicine
DX: G40.919 Epilepsy, unspecified, intractable, without status epilepticus (principal); L97.929 Non-pressure chronic ulcer of unspecified part of left lower leg with unspecified severity; N39.0 Urinary tract infection, site not specified; I87.8 Other specified disorders of veins; L30.8 Other specified dermatitis; F79 Unspecified intellectual disabilities; I73.9 Peripheral vascular disease, unspecified; E66.01 Morbid (severe) obesity due to excess calories; Z68.36 Body mass index [BMI] 36.0-36.9, adult; Z79.899 Other long term (current) drug therapy
CPT/HCPCS: 12345; 36415; 36600; 70450; 71045; 80048; 80053; 80177; 80185; 80307; 81001; 82803; 83605; 84145; 85025; 87040; 87641; 87804; 93970; 94799; 96372; 96374; 96375; 99284; J0696; J1165; J1650; J1953; J2060; J3370; J3490; J7030; J7050

== ENCOUNTER → 2019-11-13 13:17 | Outpatient (BNVA) | payer MEDICARE, SELFPAY | PROVIDERS: Family Provider Nurse Practitioner; PCP Nurse Practitioner; Referring Provider Internal Medicine; Visit Provider Specialist | DX: G40.409 Other generalized epilepsy and epileptic syndromes, not intractable, without status epilepticus (principal) | CPT/HCPCS: 11042; 99214 ==

== ENCOUNTER 2019-11-23 10:07 | Outpatient (RCR) | payer MEDICARE, SELFPAY ==
--- NOTE | 2019-11-06 13:26 | CT_ITS ---
WS: [id number] CT ANGIOGRAPHY OF THE ABDOMINAL AORTA WITH RUNOFF TO THE ANKLES HISTORY: I87.2 - Venous insufficiency (chronic) (peripheral) TECHNIQUE: Arterial injection is performed during imaging to evaluate the aorta and runoff vessels to the ankles. MIP and volume rendering imaging has also been performed. All images are reviewed. All C T scans at [facility] use at least one of these dose optimization techniques: automated ex posure control; mA and/or kV adjustment per patient size (includes targeted exams where dose is match ed to clinical indication); or iterative reconstruction. Contrast: Omnipaque 350; 190 mL IV. DLP: 5576.02 mGy.cm COMPARISON: None available. Quality of this examination is limited due to patient's body habitus. Mild dependent changes at the lung bases. Very small layering LEFT pleural effusion. Heart size is s lightly enlarged. Small hiatal hernia. Gallbladder and spleen are negative. Pancreas and adrenal glan ds negative. Gallbladder is slightly contracted. Kidney size is normal. There is good enhancement eac h kidney. Several cortical cysts in the RIGHT kidney with the largest measuring 15 mm. Small inguinal lymph nodes. Small obturator lymph nodes. Largest lymph nodes measure up to 12 mm. Largest along the LEFT distal external iliac chain. Extensive calcifications in the soft tissues of the lower extremity. Aorta: Mild atherosclerosis of aorta. No aneurysm. Single-vessel renal arteries. Celiac axis, SMA and LIZA are patent. RIGHT lower extremity arterial system: Opacification is limited but there is no significant stenosis from the LEFT common iliac artery through the popliteal artery. Poor runoff to the ankles but this is in part limited by slow flow. LEFT lower extremity fracture system: LEFT common iliac artery through the popliteal artery is patent . No significant stenosis or occlusion. No aneurysm. Limited flow to the ankles inferior to the popli teal artery is predominantly due to delayed runoff and patient's size. There are scattered calcificat ions but no occlusions are identified. CT/CT angio abd aorta runof 00141 IMPRESSION: 1. Mild atherosclerosis from the abdominal aorta through the popliteal arterie s. No occlusions. 2. Limited runoff to the ankles is in part due to patient's height and slow fl ow. I suspect there is at least mild plaque and atherosclerosis in the three-ve ssel runoff to the ankles. 3. Indeterminate but minimally prominent inguinal and external iliac lymph nod es. The largest lymph node on the LEFT is 12 mm.
[2019-11-06] MEDS: iohexol 350 mg/mL 100 mL Btl IV ×2 (14:07→14:08)
--- NOTE | 2019-11-06 15:00 | USCV_ITS ---
Lazaro Jaziel Age: 48 Gender: M : 1970 Exam Date: 11/06/2019 14:23 Ordering Phys: Ricarda Tom Technologist: Estelle Hernandez Exam Location: [facility] Indication: HISTORY: Left GSV stripped 15 years ago per mother's history. patient unable to provide history due to mental status. Non healing ulcer right inner ankle/calf area PROCEDURES: Bilateral duplex Venous Insufficiency study of the Deep and Superficial systems was carried out according to normal protocol with the patient in supine positon for deep system and dependent position for the superficial system. FINDINGS: No DVT or superficial thrombus seen in either right or left. Multiple varicose veins seen in right leg with reflux noted in prox, mid, distal and below knee GSV segments Left GSV is surgically absent. left SSV appears to have reflux. Reflux times and vessel diameters noted above. CONCLUSIONS 1.No evidence of DVT in the above-mentioned identifiable veins. 2. Significant venous reflux of greater than 500 ms were noted at the proximal, mid , distal and below-knee greater saphenous vein segments on the right side. But these venous segments were found to be less than 1 cm deep from the surface. 3. Significant venous reflux of greater than 500 ms were noted at the proximal and mid small saphenous vein segments on the left side. These venous segments were found to be more than 1 cm deep from the surface. 4. The left greater saphenous vein segment was found to be surgically removed 5. The venous dimensions, depth from the surface and reflux times are as mentioned above Dr Luciana Whaley MD [facility] (Electronically Signed) Final Date: 08 November 2019 08:47 S
== END 2019-11-28 23:59 | disposition home or self-care (01) ==
LOC: WOUND 10:07
PROVIDERS: Family Provider Nurse Practitioner; PCP Nurse Practitioner; Visit Provider Nurse Practitioner Family
DX: I87.2 Venous insufficiency (chronic) (peripheral) (principal); L97.812 Non-pressure chronic ulcer of other part of right lower leg with fat layer exposed; L97.822 Non-pressure chronic ulcer of other part of left lower leg with fat layer exposed
CPT/HCPCS: 11042; 29581; 75635; 93970

== ENCOUNTER → 2019-12-22 10:02 | Outpatient (BNVA) | payer MEDICARE, SELFPAY | PROVIDERS: Family Provider Nurse Practitioner; PCP Nurse Practitioner; Visit Provider Nurse Practitioner | DX: I10 Essential (primary) hypertension (principal); G40.919 Epilepsy, unspecified, intractable, without status epilepticus | CPT/HCPCS: 80053; 80061; 80185 ==

== ENCOUNTER 2019-12-28 09:07 | Outpatient (RCR) | payer MEDICARE, MEDICAID, SELFPAY | END 2019-12-28 23:59 | disposition home or self-care (01) | LOC: WOUND 09:07 | PROVIDERS: Family Provider Nurse Practitioner; PCP Nurse Practitioner; Visit Provider Nurse Practitioner Family | DX: I87.2 Venous insufficiency (chronic) (peripheral) (principal); L97.812 Non-pressure chronic ulcer of other part of right lower leg with fat layer exposed; L97.822 Non-pressure chronic ulcer of other part of left lower leg with fat layer exposed | CPT/HCPCS: 11042; 29581; 99214 ==

== ENCOUNTER 2020-01-04 10:19 | Outpatient (CLI) | payer MEDICARE, MEDICAID, SELFPAY | END 2020-01-04 10:20 | disposition home or self-care (01) | LOC: WOUND 10:20 | PROVIDERS: Family Provider Nurse Practitioner; PCP Nurse Practitioner; Visit Provider Nurse Practitioner Family | DX: I87.2 Venous insufficiency (chronic) (peripheral) (principal); L97.812 Non-pressure chronic ulcer of other part of right lower leg with fat layer exposed; L97.822 Non-pressure chronic ulcer of other part of left lower leg with fat layer exposed | CPT/HCPCS: 11042 ==

== ENCOUNTER 2020-01-11 09:57 | Outpatient (CLI) | payer MEDICARE, MEDICAID, SELFPAY | END 2020-01-11 09:58 | disposition home or self-care (01) | LOC: WOUND 09:58 | PROVIDERS: Family Provider Nurse Practitioner; PCP Nurse Practitioner; Visit Provider Nurse Practitioner Family | DX: I87.2 Venous insufficiency (chronic) (peripheral) (principal); L97.812 Non-pressure chronic ulcer of other part of right lower leg with fat layer exposed | CPT/HCPCS: 29581; 99214 ==

== ENCOUNTER 2020-01-18 09:03 | Outpatient (CLI) | payer MEDICARE, MEDICAID, SELFPAY | END 2020-01-18 09:04 | disposition home or self-care (01) | LOC: WOUND 09:04 | PROVIDERS: Family Provider Nurse Practitioner; PCP Nurse Practitioner; Visit Provider Nurse Practitioner Family | DX: Z09 Encounter for follow-up examination after completed treatment for conditions other than malignant neoplasm (principal) | CPT/HCPCS: 29581; G0463 ==

== ENCOUNTER 2020-01-25 15:05 | Outpatient (CLI) | payer MEDICARE, MEDICAID, SELFPAY | END 2020-01-25 15:06 | disposition home or self-care (01) | LOC: WOUND 15:06 | PROVIDERS: Family Provider Nurse Practitioner; PCP Nurse Practitioner; Visit Provider Nurse Practitioner Family | DX: Z51.89 Encounter for other specified aftercare (principal) | CPT/HCPCS: 29581 ==

== ENCOUNTER 2020-02-01 14:59 | Outpatient (CLI) | payer MEDICARE, MEDICAID, SELFPAY | END 2020-02-01 15:00 | disposition home or self-care (01) | LOC: WOUND 14:59 | PROVIDERS: Family Provider Nurse Practitioner; PCP Nurse Practitioner; Visit Provider Nurse Practitioner Family | DX: Z51.89 Encounter for other specified aftercare (principal) | CPT/HCPCS: 29581 ==

== ENCOUNTER 2020-02-08 10:52 | Outpatient (CLI) | payer MEDICARE, SELFPAY | END 2020-02-08 10:53 | disposition home or self-care (01) | LOC: WOUND 10:56 | PROVIDERS: Family Provider Nurse Practitioner; PCP Nurse Practitioner; Visit Provider Nurse Practitioner Family | DX: Z09 Encounter for follow-up examination after completed treatment for conditions other than malignant neoplasm (principal) | CPT/HCPCS: 29581; 99212; A6545 ==

== ENCOUNTER 2020-02-15 09:26 | Outpatient (CLI) | payer MEDICARE, MEDICAID, SELFPAY | END 2020-02-15 09:27 | disposition home or self-care (01) | LOC: WOUND 09:29 | PROVIDERS: Family Provider Nurse Practitioner; PCP Nurse Practitioner; Visit Provider Nurse Practitioner Family | DX: Z09 Encounter for follow-up examination after completed treatment for conditions other than malignant neoplasm (principal) | CPT/HCPCS: 29581; 99212 ==

== ENCOUNTER 2020-02-22 10:01 | Outpatient (CLI) | payer MEDICARE, MEDICAID, SELFPAY | END 2020-02-22 10:02 | disposition home or self-care (01) | LOC: WOUND 10:03 | PROVIDERS: Family Provider Nurse Practitioner; PCP Nurse Practitioner; Visit Provider Nurse Practitioner Family | DX: I89.0 Lymphedema, not elsewhere classified (principal) | CPT/HCPCS: 99212 ==

== ENCOUNTER → 2020-03-11 13:08 | Outpatient (BNVA) | payer MEDICARE, MEDICAID, SELFPAY | PROVIDERS: Family Provider Nurse Practitioner; PCP Nurse Practitioner; Visit Provider Specialist | DX: G40.309 Generalized idiopathic epilepsy and epileptic syndromes, not intractable, without status epilepticus (principal) | CPT/HCPCS: 99213 ==

== ENCOUNTER → 2020-05-22 09:18 | Outpatient (BNVA) | payer MEDICARE, MEDICAID, SELFPAY | PROVIDERS: Family Provider Nurse Practitioner; PCP Nurse Practitioner; Visit Provider Specialist | DX: G40.309 Generalized idiopathic epilepsy and epileptic syndromes, not intractable, without status epilepticus (principal); I87.2 Venous insufficiency (chronic) (peripheral) | CPT/HCPCS: 99213 ==

== ENCOUNTER → 2020-05-24 11:08 | Outpatient (BNVA) | payer MEDICARE, SELFPAY | PROVIDERS: Family Provider Nurse Practitioner; PCP Nurse Practitioner; Visit Provider Nurse Practitioner | DX: I10 Essential (primary) hypertension (principal); G40.309 Generalized idiopathic epilepsy and epileptic syndromes, not intractable, without status epilepticus | CPT/HCPCS: 80053; 80061; 80177; 80185 ==

== ENCOUNTER 2020-05-27 13:07 | Outpatient (CLI) | payer MEDICARE, MEDICAID, SELFPAY | END 2020-05-27 13:08 | disposition home or self-care (01) | LOC: WOUND 13:09 | PROVIDERS: Family Provider Nurse Practitioner; PCP Nurse Practitioner; Visit Provider Nurse Practitioner Family | DX: I87.2 Venous insufficiency (chronic) (peripheral) (principal); L97.812 Non-pressure chronic ulcer of other part of right lower leg with fat layer exposed | CPT/HCPCS: 11042 ==

== ENCOUNTER 2020-05-30 14:38 | Outpatient (CLI) | payer MEDICARE, MEDICAID, SELFPAY | END 2020-05-30 14:39 | disposition home or self-care (01) | LOC: WOUND 14:40 | PROVIDERS: Family Provider Nurse Practitioner; PCP Nurse Practitioner; Visit Provider Nurse Practitioner Family | DX: I87.2 Venous insufficiency (chronic) (peripheral) (principal); L97.812 Non-pressure chronic ulcer of other part of right lower leg with fat layer exposed | CPT/HCPCS: 29581 ==

== ENCOUNTER 2020-06-03 09:48 | Outpatient (CLI) | payer MEDICARE, MEDICAID, SELFPAY | END 2020-06-03 09:49 | disposition home or self-care (01) | LOC: WOUND 09:48 | PROVIDERS: Family Provider Nurse Practitioner; PCP Nurse Practitioner; Visit Provider Nurse Practitioner Family | DX: I87.2 Venous insufficiency (chronic) (peripheral) (principal); L97.812 Non-pressure chronic ulcer of other part of right lower leg with fat layer exposed | CPT/HCPCS: 11042 ==

== ENCOUNTER 2020-06-10 13:16 | Outpatient (CLI) | payer MEDICARE, MEDICAID, SELFPAY | END 2020-06-10 13:17 | disposition home or self-care (01) | LOC: WOUND 13:17 | PROVIDERS: Family Provider Nurse Practitioner; PCP Nurse Practitioner; Visit Provider Nurse Practitioner Family | DX: I87.2 Venous insufficiency (chronic) (peripheral) (principal); L97.812 Non-pressure chronic ulcer of other part of right lower leg with fat layer exposed | CPT/HCPCS: 11042 ==

== ENCOUNTER 2020-06-17 13:05 | Outpatient (CLI) | payer MEDICARE, MEDICAID, SELFPAY | END 2020-06-17 13:06 | disposition home or self-care (01) | LOC: WOUND 13:05 | PROVIDERS: Family Provider Nurse Practitioner; PCP Nurse Practitioner; Visit Provider Thoracic Surgery (Cardiothoracic Vascular Surgery) | DX: I87.2 Venous insufficiency (chronic) (peripheral) (principal); L97.812 Non-pressure chronic ulcer of other part of right lower leg with fat layer exposed | CPT/HCPCS: 11042; A6545 ==

== ENCOUNTER 2020-06-24 13:04 | Outpatient (CLI) | payer MEDICARE, MEDICAID, SELFPAY | END 2020-06-24 13:05 | disposition home or self-care (01) | LOC: WOUND 13:05 | PROVIDERS: Family Provider Nurse Practitioner; PCP Nurse Practitioner; Visit Provider Thoracic Surgery (Cardiothoracic Vascular Surgery) | DX: I87.2 Venous insufficiency (chronic) (peripheral) (principal); L97.812 Non-pressure chronic ulcer of other part of right lower leg with fat layer exposed | CPT/HCPCS: 11042 ==

== ENCOUNTER 2020-07-08 13:09 | Outpatient (CLI) | payer MEDICARE, MEDICAID, SELFPAY | END 2020-07-08 13:10 | disposition home or self-care (01) | LOC: WOUND 13:10 | PROVIDERS: Family Provider Nurse Practitioner; PCP Nurse Practitioner; Visit Provider Thoracic Surgery (Cardiothoracic Vascular Surgery) | DX: I87.2 Venous insufficiency (chronic) (peripheral) (principal); L97.822 Non-pressure chronic ulcer of other part of left lower leg with fat layer exposed | CPT/HCPCS: 11042 ==

== ENCOUNTER 2020-07-15 13:11 | Outpatient (CLI) | payer MEDICARE, MEDICAID, SELFPAY | END 2020-07-15 13:12 | disposition home or self-care (01) | LOC: WOUND 13:12 | PROVIDERS: Family Provider Nurse Practitioner; PCP Nurse Practitioner; Visit Provider Nurse Practitioner Family | DX: I87.2 Venous insufficiency (chronic) (peripheral) (principal); L97.812 Non-pressure chronic ulcer of other part of right lower leg with fat layer exposed | CPT/HCPCS: 11042 ==

== ENCOUNTER 2020-07-22 13:02 | Outpatient (CLI) | payer MEDICARE, MEDICAID, SELFPAY | END 2020-07-22 13:03 | disposition home or self-care (01) | LOC: WOUND 13:02 | PROVIDERS: Family Provider Nurse Practitioner; PCP Nurse Practitioner; Visit Provider Nurse Practitioner Family | DX: I87.2 Venous insufficiency (chronic) (peripheral) (principal); L97.812 Non-pressure chronic ulcer of other part of right lower leg with fat layer exposed | CPT/HCPCS: 11042 ==

== ENCOUNTER 2020-07-29 13:03 | Outpatient (CLI) | payer MEDICARE, MEDICAID, SELFPAY | END 2020-07-29 13:04 | disposition home or self-care (01) | LOC: WOUND 13:04 | PROVIDERS: PCP Nurse Practitioner; Visit Provider Thoracic Surgery (Cardiothoracic Vascular Surgery) | DX: I87.2 Venous insufficiency (chronic) (peripheral) (principal); L97.812 Non-pressure chronic ulcer of other part of right lower leg with fat layer exposed | CPT/HCPCS: 11042 ==

== ENCOUNTER 2020-08-05 13:01 | Outpatient (CLI) | payer MEDICARE, MEDICAID, SELFPAY | END 2020-08-05 13:02 | disposition home or self-care (01) | LOC: WOUND 13:02 | PROVIDERS: Family Provider Nurse Practitioner; PCP Nurse Practitioner; Visit Provider Nurse Practitioner Family | DX: I87.2 Venous insufficiency (chronic) (peripheral) (principal); L97.812 Non-pressure chronic ulcer of other part of right lower leg with fat layer exposed | CPT/HCPCS: 11042 ==

== ENCOUNTER 2020-08-07 22:35 | Emergency (ER) | payer MEDICARE, MEDICAID, SELFPAY ==
[2020-08-07 22:38] VITALS: BP 140/78; PULSE 93; RESP 12; TEMP 36.9; O2SAT 97; BMI 36.5
--- NOTE | 2020-08-07 22:39 | CTR_ITS ---
PROCEDURE INFORMATION: Exam: CT Head Without Contrast Exam date and time: 08/07/2020 10:42 PM Age: 49 years old Clinical indication: Altered mental status/memory loss; Patient HX: Grand mal seizure. History of seizure disorder; Additional info: Status epilepticus TECHNIQUE: Imaging protocol: Computed tomography of the head without contrast. Radiation optimization: All CT scans at this facility use at least one of these dose optimization techniques: automated exposure control; mA and/or kV adjustment per patient size (includes targeted exams where dose is matched to clinical indication); or iterative reconstruction. COMPARISON: CT head wo con* [id number] 11/01/2019 10:26 PM RADIATION DOSE METRICS: Total DLP (mGy-cm): 672.84 FINDINGS: Brain: No acute intracranial hemorrhage or mass effect. No definite acute infarct by CT. MRI could be more sensitive/specific for detection, as clinically directed. Cerebral ventricles: Ventricle size is normal for age. Bones/joints: No definite acute skull fracture. Paranasal sinuses: Included paranasal sinuses are essentially clear. Mastoid air cells: No significant acute finding. CT/CT head wo con* [id number] IMPRESSION: 1. No acute intracranial hemorrhage or mass effect. 2. No definite acute infarct by CT, see above. 3. Other findings discussed above. Radiation Dose CTDIVOL = (mGy): DLP = 672.84 (mGy-cm)
--- NOTE | 2020-08-07 22:39 | XR_ITS ---
WS: [id number] XR chest 1V portable [id number] REASON FOR EXAM: Seizure FINDINGS: Chest is unchanged compared to 11/01/2019. Moderate tortuosity of the thoracic aorta mild cardiac enlargement. No active pulmonary parenchymal or pleural disease. XR/XR chest 1V portable [id number] IMPRESSION: No acute chest abnormality.
--- NOTE | 2020-08-07 22:40 | ECG_ITS ---
[facility] Test Date: 2020-08-07 Pat Name: Jaziel Willis Department: Room: Gender: Male Puff Ironer: : 1970 Requested By: Yusra Carmichael Order Number: [id number] Ceballos MD: Delma Saldana M.D. Measurements Intervals [place] Rate: 80 P: 20 UT: 152 QRS: 35 QRSD: 102 T: 45 QT: 385 QTc: 446 Interpretive Statements SINUS RHYTHM Compared to ECG 03/16/2019 21:38:59 Sinus tachycardia no longer present Electronically Signed On 08-08-2020 21:24:13 NURSES' ASSOCIATION COUNSELOR by Delma Saldana M.D. [email or web address]
[2020-08-07 22:44] VITALS: BP 140/78; PULSE 79; RESP 24; O2SAT 96
[2020-08-07] MEDS: LORazepam 2 mg/mL INJ 1 mL IVP ×2 (22:46→22:55)
[2020-08-07] MEDS: ondansetron 2 mg/ML SDV 2 mL 4 MG IVP (22:55)
--- NOTE | 2020-08-07 22:57 | ED_ITS ---
HPI - Seizure General: Chief Complaint: Seizure Stated Complaint: seizure Time Seen by Provider: 08/07/20 22:39 Source: EMS Mode of arrival: EMS Limitations: altered mental status History of Present Illness: HPI Narrative: Jaziel is a 49-year-old male brought in by EMS with seizures. EMS reports one 2-minute seizure witnessed by family for which they decided to call EMS. It is not sound as though the patient never returned to baseline. Patient was loaded by EMS and in route to the hospital had a seizure for which they gave 2.5 mg of Versed intranasally. Patient never returned to baseline but then later had another seizure lasting less than a minute for which she was given 2.5 mg of IV Versed by EMS. Upon arrival here the patient appears to still have subtle seizure activity with conjugate deviation of his eyes to the left with with twitching. He does not respond to verbal or painful stimuli. Very shortly after arrival the patient began to have a full tonic-clonic seizure. EMS reports this is the seizure activity they witnessed in route as well. Seizure History: Yes Place: Home Review of Systems General: Reports: ROS unobtainable due to mental status PFSH ED PFSH: Medical History Hypertension Intellectual disability Leukocytosis Morbid obesity Nonhealing nonsurgical wound Peripheral vascular disease Seizure Venous stasis dermatitis Surgical History S/P vein stripping Family History Father Cancer Lung cancer Mother CAD (coronary artery disease) Other Diabetes Heart disease Hypertension Denies family history of Stroke Social History Smoking and tobacco status: never smoked Second hand smoke exposure: No Smoking risk assessment/counseling performed?: No Alcohol intake: never Desire information about alcohol rehabilitation?: No Counseling given: No Desire information about substance/drug rehabilitation?: No Counseling given: No Caregiver/support person: Yes Lives independently: No Household members: family Marital status: Single service: No Current occupational status: disabled History of recent travel: No Current gender identity: Male Physical Exam Const: EXAM LIMITATIONS: altered mental status OTHER: Patiently actively seizing with eye twitching present. HENMT: COMMON NORMALS: normocephalic, atraumatic, hearing grossly normal bilaterally, external ears normal, EAC's normal and Normal external nose present HEAD & SCALP: normocephalic and atraumatic NOSE: Normal external nose present EXTERNAL EAR: Yes external ears normal EXTERNAL AUDITORY CANAL: EAC's normal Eye: COMMON NORMALS: Equal, round and reactive pupils present PUPIL: Yes Equal, round and reactive pupils present OTHER: Conjugate deviation with twitching to the left Neck/C-Spine: GENERAL: Yes normal visual inspection and Yes trachea midline Resp: EFFORT & INSPECTION: Yes abnormal respiratory pattern and Yes paradoxical thoraco-abdominal movements AUSCULTATION: rhonchi Cardio: COMMON NORMALS: S1 normal heart sound present and S2 normal heart sound present RATE: tachycardic HEART SOUNDS: S1 normal heart sound present and S2 normal heart sound present GI: COMMON NORMALS: Soft to palpation and No hepatosplenomegaly present PALPATION: Yes Soft to palpation and Yes No hepatosplenomegaly present Neuro: OTHER: Patient actively seizing upon arrival Course ED course: 2254 -seizures have appeared to stop at this time. Up to this point the patient has received 2.5 mg of nasal Versed along with 2.5 mg of IV Versed by EMS. Patient is received 4 mg of Ativan by me and 2 separate 2 mg doses. 0043 -patient is sleeping without any sign of discomfort. He has purposeful movements with all of his arms and legs at times. His sister is here who helps care for him. She states that this is not atypical for him. She does state that he is taking his Dilantin as he is supposed to. She states that the patient after seizing this long likely will sleep for several hours but she wants to wait as he will be scared and frightened waking up in a strange place. We will go ahead and finish the Cerebyx infusion and monitor him. When his sister feels comfortable taking him home we will discharge him. 0225 -patient arousable and well look at his sister but would not stay awake long enough to get up and ambulate. His sister advises letting him sleep for a while longer before trying to really push him to walk. We will reassess the patient in a few hours. Vital Signs: Vital signs: Vital Signs Temperature 98.4 F 08/07/20 22:38 Pulse Rate 57 L 08/08/20 04:28 Respiratory Rate 17 08/08/20 04:28 Blood Pressure 101/69 08/08/20 04:28 Pulse Oximetry 97 08/08/20 04:28 MDM - Seizure MDM Narrative: Medical decision making narrative: 8336 -patient is up and answering questions. Once he is able to safely ambulate we will discharge him home. His sister is here and feels that he is ready to go home at this time. She understands the need to call Dr. Dr. Forrester's office for an appointment to be seen and also to see if she wants to make adjustments to his medications. Lab Data: Attestation: I reviewed the patient's lab results. Labs: Lab Results 08/07/20 08/07/20 08/07/20 Range/Units 22:46 22:46 22:46 WBC 17.8 H (4.0-10.0) 10^3/ uL RBC 4.67 (4.1-5.3) 10^6/u L Hgb 15.1 (11.7-16.6) g/dL Hct 44.9 (42.0-52.0) % MCV 96.1 H (80-94) fL MCH 32.3 (28.0-34.0) pg MCHC 33.6 (30.0-36.0) g/dL RDW 14.1 (12.1-15.1) % Plt Count 248 (130-400) 10^3/c mm MPV 10.1 (7.4-10.4) fL Neut % (Auto) 65.6 % Lymph % (Auto) 20.9 % [place] % (Auto) 8.4 % Eos % (Auto) 3.1 % Baso % (Auto) 0.4 % Neut # (Auto) 11.67 H (1.8-7.7) 10^3/u L Lymph # (Auto) 3.7 (0.8-4.8) 10^3/u L [place] # (Auto) 1.5 H (0.2-0.9) 10^3/u L Eos # (Auto) 0.6 (0.0-0.8) 10^3/u L Baso # (Auto) 0.1 (0.0-0.1) 10^3/u L Nucleated RBC % (a uto) 0 % Nucleated RBCs # 0.0 /100WBC PT (12.1-14.9) SECO NDS INR (0.8-1.2) Sodium 136 (136-145) mmol/L Potassium 3.6 (3.5-5.1) mmol/L Chloride 98 (98-107) mmol/L Carbon Dioxide 15 L (22-29) mmol/L Anion Gap 26.6 H (5-19) BUN 16 (6-20) mg/dL Creatinine 0.8 (0.7-1.2) mg/dL GFR Calculation 103.2 (90-130) mL/min Glucose 147 H (65-115) mg/dL Calculated Osmolal ity 286 (285-295) mOsm/k g Calcium 9.2 (8.5-10.5) mg/dL Magnesium 2.5 H (1.7-2.3) mg/dL Total Bilirubin 0.4 (0.15-1.2) mg/dL AST 18 (0-40) U/L ALT 13 (0-41) U/L Alkaline Phosphata se 111 (40-130) IU/L Creatine Kinase 83 (39-308) U/L Total Protein 7.4 (6.6-8.7) g/dL Albumin 4.3 (3.5-5.2) g/dL Globulin 3.1 (1.3-4.6) g/dL Phenytoin 3.0 L (10-20) ug/mL Ethyl Alcohol < 10 (0-10) mg/dL 08/07/20 Range/Units 22:46 WBC (4.0-10.0) 10^3/ uL RBC (4.1-5.3) 10^6/u L Hgb (11.7-16.6) g/dL Hct (42.0-52.0) % MCV (80-94) fL MCH (28.0-34.0) pg MCHC (30.0-36.0) g/dL RDW (12.1-15.1) % Plt Count (130-400) 10^3/c mm MPV (7.4-10.4) fL Neut % (Auto) % Lymph % (Auto) % [place] % (Auto) % Eos % (Auto) % Baso % (Auto) % Neut # (Auto) (1.8-7.7) 10^3/u L Lymph # (Auto) (0.8-4.8) 10^3/u L [place] # (Auto) (0.2-0.9) 10^3/u L Eos # (Auto) (0.0-0.8) 10^3/u L Baso # (Auto) (0.0-0.1) 10^3/u L Nucleated RBC % (a uto) % Nucleated RBCs # /100WBC PT 15.00 H (12.1-14.9) SECO NDS INR 1.14 (0.8-1.2) Sodium (136-145) mmol/L Potassium (3.5-5.1) mmol/L Chloride (98-107) mmol/L Carbon Dioxide (22-29) mmol/L Anion Gap (5-19) BUN (6-20) mg/dL Creatinine (0.7-1.2) mg/dL GFR Calculation (90-130) mL/min Glucose (65-115) mg/dL Calculated Osmolal ity (285-295) mOsm/k g Calcium (8.5-10.5) mg/dL Magnesium (1.7-2.3) mg/dL Total Bilirubin (0.15-1.2) mg/dL AST (0-40) U/L ALT (0-41) U/L Alkaline Phosphata se (40-130) IU/L Creatine Kinase (39-308) U/L Total Protein (6.6-8.7) g/dL Albumin (3.5-5.2) g/dL Globulin (1.3-4.6) g/dL Phenytoin (10-20) ug/mL Ethyl Alcohol (0-10) mg/dL Imaging Data^: CXR: Attestation: I personally reviewed and interpreted this imaging study as follows: My impression: No acute cardiopulmonary findings. No definite sign of aspiration. CT Head: Radiologist's impression: [address] [address] [address] Scan Report Signed Patient: Jaziel Willis #: [id number] : 1970Acct#:[id number] Age/Sex: 49 / MADM Date: 08/07/20 Loc: ERRoom/Bed: Attending Dr: Ordering Provider/Ordering MD: Yusra Barrow DO Date of Service: 08/07/20 Procedure(s): CT head wo con* [id number] Accession Number(s): [id number] Report Number: [id number] PROCEDURE INFORMATION: Exam: CT Head Without Contrast Exam date and time: 08/07/2020 10:42 PM Age: 49 years old Clinical indication: Altered mental status/memory loss; Patient HX: Grand mal seizure. History of seizure disorder; Additional info: Status epilepticus TECHNIQUE: Imaging protocol: Computed tomography of the head without contrast. Radiation optimization: All CT scans at this facility use at least one of these dose optimization techniques: automated exposure control; mA and/or kV adjustment per patient size (includes targeted exams where dose is matched to clinical indication); or iterative reconstruction. COMPARISON: CT head wo con* [id number] 11/01/2019 10:26 PM RADIATION DOSE METRICS: Total DLP (mGy-cm): 672.84 FINDINGS: Brain: No acute intracranial hemorrhage or mass effect. No definite acute infarct by CT. MRI could be more sensitive/specific for detection, as clinically directed. Cerebral ventricles: Ventricle size is normal for age. Bones/joints: No definite acute skull fracture. Paranasal sinuses: Included paranasal sinuses are essentially clear. Mastoid air cells: No significant acute finding. CT/CT head wo con* [id number] IMPRESSION: 1. No acute intracranial hemorrhage or mass effect. 2. No definite acute infarct by CT, see above. 3. Other findings discussed above. Radiation Dose CTDIVOL = (mGy): DLP = 672.84 (mGy-cm) Dictated By:Servando Romano MD Signed By:Servando Romano MDSigned Date/Time:08/08/2025 DD/ Discharge Plan Discharge Patient Disposition: Home Clinical Impression: Status epilepticus Condition: Stable Prescriptions: No Action furosemide [Lasix] 20 mg tablet 40 mg PO DAILY Qty: 30 RF: 5 metoprolol succinate 50 mg tablet extended release 24 hr 50 mg PO DAILY Qty: 30 RF: 5 trazodone 100 mg tablet 100 mg PO BEDTIME Qty: 30 RF: 5 Dimetapp Cold-Congestion 6.25-2.5 mg/5 mL liquid 5 ml PO .2 times day Qty: 120 RF: 0 phenytoin sodium extended 300 mg capsule 300 mg PO DAILY Qty: 30 RF: 3 levetiracetam [Keppra] 1,000 mg tablet 1,000 mg PO BID Qty: 60 RF: 2 Discharge Orders: Discharge ED (Routine); Ordered 08/08/20 Ordered By: Yusra Barrow Referrals: Amy Forrester MD [Physician] - 1-3 days Candi Latif FNP-C [Primary Care Provider] - 1-3 days Discharge Diet: Usual diet Discharge Activity: Increase activity as tolerated Patient Instructions: Epilepsy (ED), Recurrent Seizures Adult (ED) Activity Restrictions/Additional Instructions: No driving, no working at heights, no tub baths, no swimming alone or anything else that would put you at risk should you have another seizure. Please return to the ER immediately for any of the signs or symptoms listed on your discharge instruction sheets, worsening/changing of your symptoms, you are not getting better as quickly as expected, or for ANY other cause or concerns. Be certain to follow-up with Dr. Forrester as soon as possible to adjust your dosage of Dilantin. Coding Level of Care Code ED Territory Manager [employer] for Chg Fwd Exam Detailed
[2020-08-07 22:58] LABS: Basophils # 0.1 10^3/uL (0.0-0.1); Basophils % 0.4 %; Eosinophils # 0.6 10^3/uL (0.0-0.8); Eosinophils % 3.1 %; Hematocrit 44.9 % (42.0-52.0); Hemoglobin 15.1 g/dL (11.7-16.6); Lymphocytes # 3.7 10^3/uL (0.8-4.8); Lymphocytes % 20.9 %; Mean Corpuscular HGB Conc 33.6 g/dL (30.0-36.0); Mean Corpuscular Hemoglobin 32.3 pg (28.0-34.0); Mean Corpuscular Volume 96.1 fL (80-94); Mean Platelet Volume 10.1 fL (7.4-10.4); Monocytes # 1.5 10^3/uL (0.2-0.9); Monocytes % 8.4 %; Neutrophils # 11.67 10^3/uL (1.8-7.7); Neutrophils % 65.6 %; Nucleated Red Blood Cells % 0 %; Platelet Count 248 10^3/cmm (130-400); Red Blood Count 4.67 10^6/uL (4.1-5.3); Red Cell Distribution Width 14.1 % (12.1-15.1); White Blood Count 17.8 10^3/uL (4.0-10.0)
[2020-08-07 22:59] VITALS: BP 124/75; PULSE 78; RESP 22; O2SAT 95
[2020-08-07 23:11] LABS: INR 1.14 (0.8-1.2)
[2020-08-07 23:14] VITALS: BP 124/75; PULSE 74; RESP 23; O2SAT 95
[2020-08-07 23:15] VITALS: BP 124/75; PULSE 74; RESP 23; O2SAT 95
[2020-08-07 23:16] LABS: Alanine Aminotransferase 13 U/L (0-41); Albumin Level 4.3 g/dL (3.5-5.2); Alkaline Phosphatase 111 IU/L (40-130); Anion Gap 26.6 (5-19); Aspartate Amino Transferase 18 U/L (0-40); Blood Urea Nitrogen 16 mg/dL (6-20); Calcium 9.2 mg/dL (8.5-10.5); Carbon Dioxide 15 mmol/L (22-29); Chloride 98 mmol/L (98-107); Creatine Phosphokinase 83 U/L (39-308); Globulin 3.1 g/dL (1.3-4.6); Glomerular Filtration Rate 103.2 mL/min (90-130); Glucose 147 mg/dL (65-115); Magnesium 2.5 mg/dL (1.7-2.3); Osmolality Calculated 286 mOsm/kg (285-295); Potassium 3.6 mmol/L (3.5-5.1); Sodium 136 mmol/L (136-145); Total Bilirubin 0.4 mg/dL (0.15-1.2); Total Protein 7.4 g/dL (6.6-8.7)
--- NOTE | 2020-08-07 23:17 | PC.NURSE ---
Patient slowly looking around and yawning. Patient feeling face with right hand. Patient having snoring respirations.
[2020-08-07 23:28] LABS: Alcohol Level < 10 mg/dL (0-10)
[2020-08-08] VITALS (9 sets, daily range): BP systolic 101–127; BP diastolic 54–81; PULSE 57–68; RESP 14–20; TEMP 36.9; O2SAT 91–98
[2020-08-12 17:22] LABS: Levetiracetam Keppra 16.6 mcg/mL
== END 2020-08-08 05:25 | disposition home or self-care (01) ==
PROVIDERS: Emergency Provider Emergency Medicine; PCP Nurse Practitioner
DX: G40.901 Epilepsy, unspecified, not intractable, with status epilepticus (principal); I10 Essential (primary) hypertension; I73.9 Peripheral vascular disease, unspecified
CPT/HCPCS: 12345; 70450; 71045; 80053; 80177; 80185; 80307; 82550; 83735; 85025; 85610; 93005; 96365; 96367; 96375; 99283; 99284; J1953; J2060; J2405; Q2009

== ENCOUNTER 2020-08-12 13:03 | Outpatient (CLI) | payer MEDICARE, MEDICAID, SELFPAY | END 2020-08-12 13:04 | disposition home or self-care (01) | LOC: WOUND 13:04 | PROVIDERS: PCP Nurse Practitioner; Visit Provider Nurse Practitioner Family | DX: I87.2 Venous insufficiency (chronic) (peripheral) (principal); L97.812 Non-pressure chronic ulcer of other part of right lower leg with fat layer exposed | CPT/HCPCS: 11042 ==

== ENCOUNTER → 2020-08-14 09:32 | Outpatient (BNVA) | payer MEDICARE, MEDICAID, SELFPAY | PROVIDERS: PCP Nurse Practitioner; Referring Provider Emergency Medicine; Visit Provider Specialist | DX: Z09 Encounter for follow-up examination after completed treatment for conditions other than malignant neoplasm (principal); G40.901 Epilepsy, unspecified, not intractable, with status epilepticus; G40.309 Generalized idiopathic epilepsy and epileptic syndromes, not intractable, without status epilepticus; F79 Unspecified intellectual disabilities | CPT/HCPCS: 99214 ==

== ENCOUNTER 2020-08-19 13:08 | Outpatient (CLI) | payer MEDICARE, MEDICAID, SELFPAY | END 2020-08-19 13:09 | disposition home or self-care (01) | LOC: WOUND 13:09 | PROVIDERS: PCP Nurse Practitioner; Visit Provider Nurse Practitioner Family | DX: I89.0 Lymphedema, not elsewhere classified (principal) | CPT/HCPCS: 29581 ==

== ENCOUNTER 2020-08-26 13:07 | Outpatient (CLI) | payer MEDICARE, MEDICAID, SELFPAY | END 2020-08-26 13:08 | disposition home or self-care (01) | LOC: WOUND 13:08 | PROVIDERS: PCP Nurse Practitioner; Visit Provider Nurse Practitioner Family | DX: Z09 Encounter for follow-up examination after completed treatment for conditions other than malignant neoplasm (principal) | CPT/HCPCS: 99212 ==

== ENCOUNTER → 2020-09-17 15:29 | Outpatient (BNVA) | payer MEDICARE, SELFPAY | PROVIDERS: PCP Nurse Practitioner; Visit Provider Nurse Practitioner | DX: I10 Essential (primary) hypertension (principal); R73.9 Hyperglycemia, unspecified; I73.9 Peripheral vascular disease, unspecified; I87.2 Venous insufficiency (chronic) (peripheral); E66.01 Morbid (severe) obesity due to excess calories; F79 Unspecified intellectual disabilities; G40.309 Generalized idiopathic epilepsy and epileptic syndromes, not intractable, without status epilepticus | CPT/HCPCS: 80053; 80061; 83036 ==

== ENCOUNTER 2020-10-07 09:29 | Outpatient (CLI) | payer MEDICARE, MEDICAID, SELFPAY | END 2020-10-07 09:30 | disposition home or self-care (01) | LOC: WOUND 09:29 | PROVIDERS: PCP Nurse Practitioner; Visit Provider Nurse Practitioner Family | DX: I87.2 Venous insufficiency (chronic) (peripheral) (principal); L97.822 Non-pressure chronic ulcer of other part of left lower leg with fat layer exposed | CPT/HCPCS: 11042; A6545; G0463 ==

== ENCOUNTER 2020-10-10 13:05 | Outpatient (CLI) | payer MEDICARE, MEDICAID, SELFPAY | END 2020-10-10 13:06 | disposition home or self-care (01) | LOC: WOUND 13:06 | PROVIDERS: PCP Nurse Practitioner; Visit Provider Nurse Practitioner Family | DX: L97.821 Non-pressure chronic ulcer of other part of left lower leg limited to breakdown of skin (principal); I87.2 Venous insufficiency (chronic) (peripheral) | CPT/HCPCS: 29581 ==

== ENCOUNTER 2020-10-18 14:08 | Outpatient (CLI) | payer MEDICARE, MEDICAID, SELFPAY | END 2020-10-18 14:09 | disposition home or self-care (01) | LOC: WOUND 14:09 | PROVIDERS: PCP Nurse Practitioner; Visit Provider Surgery | DX: L97.829 Non-pressure chronic ulcer of other part of left lower leg with unspecified severity (principal) | CPT/HCPCS: 29581 ==

== ENCOUNTER 2020-10-24 10:24 | Outpatient (CLI) | payer MEDICARE, MEDICAID, SELFPAY | END 2020-10-24 10:25 | disposition home or self-care (01) | LOC: WOUND 10:25 | PROVIDERS: PCP Nurse Practitioner; Visit Provider Nurse Practitioner Family | DX: I87.2 Venous insufficiency (chronic) (peripheral) (principal); L97.822 Non-pressure chronic ulcer of other part of left lower leg with fat layer exposed | CPT/HCPCS: 97597 ==

== ENCOUNTER 2020-10-31 09:58 | Outpatient (CLI) | payer MEDICARE, MEDICAID, SELFPAY | END 2020-10-31 09:59 | disposition home or self-care (01) | LOC: WOUND 09:59 | PROVIDERS: PCP Nurse Practitioner; Visit Provider Nurse Practitioner Family | DX: I87.2 Venous insufficiency (chronic) (peripheral) (principal); L97.822 Non-pressure chronic ulcer of other part of left lower leg with fat layer exposed | CPT/HCPCS: 11042; 87070; 87075; 87205 ==

== ENCOUNTER 2020-11-07 10:42 | Outpatient (CLI) | payer MEDICARE, MEDICAID, SELFPAY | END 2020-11-07 10:43 | disposition home or self-care (01) | LOC: WOUND 10:43 | PROVIDERS: PCP Nurse Practitioner; Visit Provider Nurse Practitioner Family | DX: I87.2 Venous insufficiency (chronic) (peripheral) (principal); L97.822 Non-pressure chronic ulcer of other part of left lower leg with fat layer exposed | CPT/HCPCS: 11042 ==

== ENCOUNTER 2020-11-14 10:46 | Outpatient (CLI) | payer MEDICARE, MEDICAID, SELFPAY | END 2020-11-14 10:47 | disposition home or self-care (01) | LOC: WOUND 10:47 | PROVIDERS: PCP Nurse Practitioner; Visit Provider Nurse Practitioner Family | DX: I87.2 Venous insufficiency (chronic) (peripheral) (principal); L97.822 Non-pressure chronic ulcer of other part of left lower leg with fat layer exposed | CPT/HCPCS: 11042 ==

== ENCOUNTER → 2020-11-20 14:45 | Outpatient (BNVA) | payer MEDICARE, MEDICAID, SELFPAY | PROVIDERS: PCP Nurse Practitioner; Visit Provider Specialist | DX: G40.309 Generalized idiopathic epilepsy and epileptic syndromes, not intractable, without status epilepticus (principal) | CPT/HCPCS: 99214 ==

== ENCOUNTER 2020-11-21 10:26 | Outpatient (CLI) | payer MEDICARE, MEDICAID, SELFPAY | END 2020-11-21 10:27 | disposition home or self-care (01) | LOC: WOUND 10:28 | PROVIDERS: PCP Nurse Practitioner; Visit Provider Nurse Practitioner Family | DX: I87.2 Venous insufficiency (chronic) (peripheral) (principal); L97.822 Non-pressure chronic ulcer of other part of left lower leg with fat layer exposed; I96 Gangrene, not elsewhere classified | CPT/HCPCS: 11042 ==

== ENCOUNTER 2020-11-28 11:06 | Outpatient (CLI) | payer MEDICARE, MEDICAID, SELFPAY | END 2020-11-28 11:07 | disposition home or self-care (01) | LOC: WOUND 11:09 | PROVIDERS: PCP Nurse Practitioner; Visit Provider Nurse Practitioner Family | DX: Z09 Encounter for follow-up examination after completed treatment for conditions other than malignant neoplasm (principal); Z87.2 Personal history of diseases of the skin and subcutaneous tissue | CPT/HCPCS: 99212 ==

== ENCOUNTER 2021-02-16 10:58 | Emergency (ER) | payer MEDICARE, MEDICAID, SELFPAY ==
[2021-02-16] VITALS (10 sets, daily range): BP systolic 116–151; BP diastolic 59–89; PULSE 86–120; RESP 10–30; TEMP 37.3; O2SAT 87–99; BMI 40.9
[2021-02-16] MEDS: LORazepam 2 mg/mL INJ 1 mL (11:05)
[2021-02-16] MEDS: LORazepam 2 mg/mL INJ 1 mL IVP ×2 (11:15→11:33)
[2021-02-16 11:19] LABS: Basophils # 0.2 10^3/uL (0.0-0.1); Basophils % 0.9 %; Eosinophils # 0.9 10^3/uL (0.0-0.8); Eosinophils % 4.3 %; Hematocrit 49.1 % (42.0-52.0); Hemoglobin 16.5 g/dL (11.7-16.6); Lymphocytes # 6.6 10^3/uL (0.8-4.8); Lymphocytes % 30.5 %; Mean Corpuscular HGB Conc 33.6 g/dL (30.0-36.0); Mean Corpuscular Hemoglobin 32.6 pg (28.0-34.0); Mean Platelet Volume 11.9 fL (7.4-10.4); Monocytes % 9.2 %; Neutrophils # 11.23 10^3/uL (1.8-7.7); Neutrophils % 52.3 %; Nucleated Red Blood Cells % 0 %; Platelet Count 202 10^3/cmm (130-400); Red Blood Count 5.06 10^6/uL (4.1-5.3); Red Cell Distribution Width 14.3 % (12.1-15.1); White Blood Count 21.5 10^3/uL (4.0-10.0)
--- NOTE | 2021-02-16 11:29 | CTR_ITS ---
PROCEDURE INFORMATION: Exam: CT Head Without Contrast Exam date and time: 02/16/2021 11:29 AM Age: 50 years old Clinical indication: Condition or disease; Convulsions or seizures; Epilepsy; Severity not specified; Generalized; Additional info: Trauma TECHNIQUE: Imaging protocol: Computed tomography of the head without contrast. Axial, coronal and sagittal reformatted images were created and reviewed. Radiation optimization: All CT scans at this facility use at least one of these dose optimization techniques: automated exposure control; mA and/or kV adjustment per patient size (includes targeted exams where dose is matched to clinical indication); or iterative reconstruction. COMPARISON: CT head wo con* [id number] 08/08/2020 12:03 AM RADIATION DOSE METRICS: Total DLP (mGy-cm): 2314.94 FINDINGS: Brain: No CT evidence of acute intracranial hemorrhage or acute territorial infarction. No significant mass effect or midline shift. Basal cisterns patent. Cerebral ventricles: Normal in size and configuration. Paranasal sinuses: Mild ethmoid and left inferior frontal sinus mucosal thickening. Mild polypoid right greater than left maxillary sinus mucosal thickening. Mastoid air cells: Grossly unremarkable. Bones/joints: No acute osseous abnormality. Soft tissues: Grossly unremarkable. CT/CT head wo con* [id number] IM[address]ION: 1. No CT evidence of acute intracranial pathology. 2. Additional findings, as above. Radiation Dose CTDIVOL = (mGy): DLP = 2314.94 (mGy-cm)
[2021-02-16] MEDS: succinylcholine 20 mg/mL SDV 10mL 100 MG IV (11:39)
[2021-02-16 11:41] LABS: Alanine Aminotransferase 13 U/L (0-41); Albumin Level 4.7 g/dL (3.5-5.2); Alkaline Phosphatase 123 IU/L (40-130); Blood Urea Nitrogen 12 mg/dL (6-20); Calcium 9.5 mg/dL (8.5-10.5); Carbon Dioxide 19 mmol/L (22-29); Chloride 104 mmol/L (98-107); Globulin 2.4 g/dL (1.3-4.6); Glomerular Filtration Rate 102.7 mL/min (90-130); Glucose 122 mg/dL (65-115); Osmolality Calculated 305 mOsm/kg (285-295); Phenytoin Dilantin 1.8 ug/mL (10-20); Sodium 147 mmol/L (136-145); Total Bilirubin 0.5 mg/dL (0.15-1.2); Total Protein 7.1 g/dL (6.6-8.7)
[2021-02-16 11:45] LABS: Aspartate Amino Transferase 22 U/L (0-40)
[2021-02-16] MEDS: propofol 1,000 MG/100 ML INJ 13.8 MG (11:45)
--- NOTE | 2021-02-16 11:48 | XRR_ITS ---
PROCEDURE INFORMATION: Exam: XR Chest Exam date and time: 02/16/2021 11:48 AM Age: 50 years old Clinical indication: Device placement; Ett placement (vent status); Additional info: Post intubation TECHNIQUE: Imaging protocol: XR of the chest. Views: 1 view. COMPARISON: CR XR chest 1V portable [id number] 08/07/2020 10:43 PM FINDINGS: Tubes, catheters and devices: Endotracheal tube projects above the level of the jim. NG tube courses below the diaphragm with nonvisualization of the tip. Lungs: Lung volumes are low which exaggerates perihilar markings. No consolidation. Pleural spaces: Unremarkable. No pleural effusion. No pneumothorax. Heart/Mediastinum: Mild cardiomegaly. Bones/joints: No acute fracture. XR/XR chest 1V portable [id number] IMPRESSION: No acute findings.
--- NOTE | 2021-02-16 11:49 | CTR_ITS ---
PROCEDURE INFORMATION: Exam: CT Cervical Spine Without Contrast Exam date and time: 02/16/2021 11:49 AM Age: 50 years old Clinical indication: Injury or trauma; Fall; Blunt trauma TECHNIQUE: Imaging protocol: Computed tomography images of the cervical spine without contrast. Axial, coronal and sagittal reformatted images were created and reviewed. Radiation optimization: All CT scans at this facility use at least one of these dose optimization techniques: automated exposure control; mA and/or kV adjustment per patient size (includes targeted exams where dose is matched to clinical indication); or iterative reconstruction. COMPARISON: CT head wo con* [id number] 02/16/2021 12:10 PM RADIATION DOSE METRICS: Total DLP (mGy-cm): 856.75 FINDINGS: Bones/joints: Straightening of the normal cervical lordosis. No CT evidence of acute fracture, dislocation or subluxation. Alignment anatomic. Vertebral body heights maintained. Discs/Spinal canal/Neural foramina: Mild multilevel spondylosis. No significant spinal canal or neural foraminal stenosis. Thyroid gland: Enlarged, nodular left thyroid lobe. Lungs: Grossly unremarkable. Soft tissues: Grossly unremarkable. CT/CT cervical spin wo con* [id number]: 1. No CT evidence of acute cervical spine traumatic injury. 2. Enlarged, nodular left thyroid lobe. If clinically indicated, follow-up thyroid ultrasound may be obtained for further evaluation. 3. Additional findings, as above. Radiation Dose CTDIVOL = (mGy): DLP = 856.75 (mGy-cm)
--- NOTE | 2021-02-16 11:55 | PC.NURSE ---
Pt having multiple seizures with de-saturations to the 60s despite nasal trumpet and NRB mask. Dr Jett intubated pt at bedside with RT present. See MAR for med times. Pt intubated at 1140 with 7.5 tube, 26 at the lip. Pt tolerated fair. Pt placed on propofol for sedation. OG and kohler placed.
[2021-02-16 12:02] LABS: Bilirubin Urine Neg (Negative); Blood Urine Neg (Negative); Glucose Urine UA Norm (Normal); Ketones Urine Negative (Negative); Leukocyte Esterase Urine Negative (Negative); Nitrate Urine Negative (Negative); Protein Urine 1+ (Negative); Urine Appearance Clear (CLEAR); Urine Color Dark Yellow (Yellow); Urobilinogen Urine 1 mg/dL (Negative); pH Urine 5 (5-7)
[2021-02-16 12:03] LABS: Add Urine Culture? No; Bacteria Urine TRACE /hpf; Mucus Urine 1+ /hpf; WBC Urine 0-4 /hpf (0-5)
[2021-02-16 12:04] LABS: Amphetamines Screen Urine Negative (Negative); Barbiturates Screen Urine Positive (Negative); Benzodiazepines Screen Urine Negative (Negative); Cocaine Screen Urine Negative (Negative); Opiate Screen Urine Negative (Negative); PCP Screen Urine Negative (Negative); THC Screen Urine Negative (Negative)
--- NOTE | 2021-02-16 12:07 | W.ED.SEIZURE ---
HPI - Seizure General: Chief Complaint: Seizure Stated Complaint: SEIZURES Time Seen by Provider: 02/16/21 11:04 History of Present Illness: HPI Narrative: 50-year-old male with epilepsy since he was 9 months of age had a witnessed seizure by his sister at home that was a usual tonic-clonic for him she said he has not had one for several months that she is aware of. EMS said he was postictal on arrival they could not establish an IV and just prior to pulling into the emergency department he had a second seizure. When he arrived in the department he was postictal suction was in place and he was being hooked up to the monitor placed on oxygen. Jaw thrust and nasal trumpet were used in adjuncts as well. Cannot obtain further HPI Per his sister he has not been ill lately she does not think he has missed any of his medications he does take Keppra and Dilantin although in the past he has been on Vimpat. He has had previous status epilepticus requiring intubation. Seizure History: Yes Place: Home Review of Systems General: Reports: ROS unobtainable due to medical condition and ROS unobtainable due to mental status PENDING SALE TO [facility] ED PFSH: Medical History Hypertension Intellectual disability Leukocytosis Morbid obesity Nonhealing nonsurgical wound Peripheral vascular disease Seizure Venous stasis dermatitis Surgical History S/P vein stripping Family History Father Cancer Lung cancer Mother CAD (coronary artery disease) Other Diabetes Heart disease Hypertension Denies family history of Stroke Social History Smoking and tobacco status: never smoked Second hand smoke exposure: No Smoking risk assessment/counseling performed?: No Alcohol intake: never Desire information about alcohol rehabilitation?: No Counseling given: No Desire information about substance/drug rehabilitation?: No Counseling given: No Caregiver/support person: Yes Lives independently: No Household members: family Marital status: Single service: No Current occupational status: disabled History of recent travel: No Current gender identity: Male Physical Exam Narrative: EXAM NARRATIVE: General: Postictal will not answer questions Head: atraumatic, no hematomas or lacerations HEENT: normal eyes, slightly injected conjunctiva, normal hearing, normal external nose, normal mouth, mucous membranes moist Neck: FROM, trachea midline Chest: normal expansion, no gross deformities Resp: normal speech, no retractions, no accessory muscle use, CTA bilaterally Cardio: regular rate and rhythm and no murmur, no peripheral edema, normal peripheral pulses GI: soft, flat non tender, no guarding normal BS : deferred Musculoskeletal: FROM, no pain or gross deformities Neuro: Postictal nonverbal Skin: no rashes Psych: cooperative, normal mood and effect Course Vital Signs: Vital signs: Vital Signs Temperature 99.2 F 02/16/21 10:59 Pulse Rate 86 02/16/21 12:38 Respiratory Rate 30 H 02/16/21 12:38 Blood Pressure 131/76 02/16/21 12:38 Pulse Oximetry 99 02/16/21 12:38 MDM - Seizure MDM Narrative: Medical decision making narrative: Patient was postictal on arrival therefore did not institute immediate medications to see if he would arouse. Patient did not awaken he had 2 more additional seizures with a total of 3 seizures here in the emergency department Ativan was given in between each seizure as well as Keppra had been ordered 2000 mg total. Attempted to do some IV Valium but it is not available at this facility. During his last seizure he did bite his tongue and had some blood. He was on constant monitoring and staff present in the room at all times administering suction oxygen and protecting his airway do not feel he aspirated. His seizures were tonic-clonic in nature he never regained consciousness in between them therefore it was imprudent that we intubate him to protect his airway. Patient was given 20 mg of etomidate 100 mg of succinylcholine RT was at bedside to assist 7.5 ET tube was placed on first attempt he had good breath sounds bilaterally slightly decreased on the left initially so tube was placed at 25 cm at the lip and we will obtain a chest x-ray. There was no acute complications there was some chronic pressures well capnography had turned yellow and he had good O2 sats on the monitor. Patient was started on a propofol drip Patient has an elevated white count of the and his previous diagnosis it does show he does run a leukocytosis however he did just have multiple seizures. Spoke with sister she is aware of the situation and request Princess. Spoke with our hospitalist here since we do not have any neurology coverage today or tomorrow he will require transfer to a higher level of care and that has neurology. spoke to Princess Weiner slitter cut off operator who wants a total of 3000 of the Keppra and 20mg/kg of Dilantin would be 3000 so we decided on 2000mg of Fosphenytoin. Patient chronically has an elevated white blood cell count every time he comes in he does have 1 and and his problems and diagnosis is also listed as leukocytosis his sister did not report any recent infections but the receiving hospital request just to give him a dose of Rocephin as a precaution. Patient was accepted for a direct admit he will go by ground due to his size and furthermore he would be difficult to control if he were to seize in the helicopter Medical Records: Attestation: I reviewed the patient's medical records. Lab Data: Attestation: I reviewed the patient's lab results. Labs: Lab Results 02/16/21 02/16/21 02/16/21 Range/Units 11:10 11:10 11:34 WBC 21.5 H (4.0-10.0) 10^3/ uL RBC 5.06 (4.1-5.3) 10^6/u L Hgb 16.5 (11.7-16.6) g/dL Hct 49.1 (42.0-52.0) % MCV 97.0 H (80-94) fL MCH 32.6 (28.0-34.0) pg MCHC 33.6 (30.0-36.0) g/dL RDW 14.3 (12.1-15.1) % Plt Count 202 (130-400) 10^3/c mm MPV 11.9 H (7.4-10.4) fL Neut % (Auto) 52.3 % Lymph % (Auto) 30.5 % [place] % (Auto) 9.2 % Eos % (Auto) 4.3 % Baso % (Auto) 0.9 % Neut # (Auto) 11.23 H (1.8-7.7) 10^3/u L Lymph # (Auto) 6.6 H (0.8-4.8) 10^3/u L [place] # (Auto) 2.0 H (0.2-0.9) 10^3/u L Eos # (Auto) 0.9 H (0.0-0.8) 10^3/u L Baso # (Auto) 0.2 H (0.0-0.1) 10^3/u L Nucleated RBC % (a uto) 0 % Nucleated RBCs # 0.0 /100WBC Sodium 147 H (136-145) mmol/L Potassium 4.0 (3.5-5.1) mmol/L Chloride 104 (98-107) mmol/L Carbon Dioxide 19 L (22-29) mmol/L Anion Gap 28.0 H (5-19) BUN 12 (6-20) mg/dL Creatinine 0.8 (0.7-1.2) mg/dL GFR Calculation 102.7 (90-130) mL/min Glucose 122 H (65-115) mg/dL Calculated Osmolal ity 305 H (285-295) mOsm/k g Calcium 9.5 (8.5-10.5) mg/dL Total Bilirubin 0.5 (0.15-1.2) mg/dL AST 22 (0-40) U/L ALT 13 (0-41) U/L Alkaline Phosphata se 123 (40-130) IU/L Total Protein 7.1 (6.6-8.7) g/dL Albumin 4.7 (3.5-5.2) g/dL Globulin 2.4 (1.3-4.6) g/dL Urine Color Dark yellow (Yellow) Urine Appearance Clear (CLEAR) Urine pH 5 (5-7) Ur Specific Gravit y 1.020 (1.005-1.030) Urine Protein 1+ H (Negative) Urine Glucose (UA) Norm (Normal) Urine Ketones Negative (Negative) Urine Blood Neg (Negative) Urine Nitrate Negative (Negative) Urine Bilirubin Neg (Negative) Urine Urobilinogen 1 H (Negative) mg/dL Ur Leukocyte [place] Negative (Negative) Urine RBC None (0-2) /hpf Urine WBC 0-4 H (0-5) /hpf Ur Squamous Epith Cells None (0-5) /hpf Amorphous Sediment Not Reportable Urine Bacteria Trace (NONE) /hpf Fine Granular Cast s 5-10 H /lpf Urine Mucus 1+ /hpf Urine Opiates Scre en (Negative) ng/mL Ur Barbiturates Sc reen (Negative) ng/mL Phenytoin 1.8 L (10-20) ug/mL Ur Phencyclidine S crn (Negative) ng/mL Ur Amphetamines Sc reen (Negative) ng/mL U Benzodiazepines Scrn (Negative) ng/mL Urine Cocaine Scre en (Negative) ng/mL U Marijuana (THC) Screen (Negative) ng/mL 02/16/21 Range/Units 11:34 WBC (4.0-10.0) 10^3/ uL RBC (4.1-5.3) 10^6/u L Hgb (11.7-16.6) g/dL Hct (42.0-52.0) % MCV (80-94) fL MCH (28.0-34.0) pg MCHC (30.0-36.0) g/dL RDW (12.1-15.1) % Plt Count (130-400) 10^3/c mm MPV (7.4-10.4) fL Neut % (Auto) % Lymph % (Auto) % [place] % (Auto) % Eos % (Auto) % Baso % (Auto) % Neut # (Auto) (1.8-7.7) 10^3/u L Lymph # (Auto) (0.8-4.8) 10^3/u L [place] # (Auto) (0.2-0.9) 10^3/u L Eos # (Auto) (0.0-0.8) 10^3/u L Baso # (Auto) (0.0-0.1) 10^3/u L Nucleated RBC % (a uto) % Nucleated RBCs # /100WBC Sodium (136-145) mmol/L Potassium (3.5-5.1) mmol/L Chloride (98-107) mmol/L Carbon Dioxide (22-29) mmol/L Anion Gap (5-19) BUN (6-20) mg/dL Creatinine (0.7-1.2) mg/dL GFR Calculation (90-130) mL/min Glucose (65-115) mg/dL Calculated Osmolal ity (285-295) mOsm/k g Calcium (8.5-10.5) mg/dL Total Bilirubin (0.15-1.2) mg/dL AST (0-40) U/L ALT (0-41) U/L Alkaline Phosphata se (40-130) IU/L Total Protein (6.6-8.7) g/dL Albumin (3.5-5.2) g/dL Globulin (1.3-4.6) g/dL Urine Color (Yellow) Urine Appearance (CLEAR) Urine pH (5-7) Ur Specific Gravit y (1.005-1.030) Urine Protein (Negative) Urine Glucose (UA) (Normal) Urine Ketones (Negative) Urine Blood (Negative) Urine Nitrate (Negative) Urine Bilirubin (Negative) Urine Urobilinogen (Negative) mg/dL Ur Leukocyte [place] (Negative) Urine RBC (0-2) /hpf Urine WBC (0-5) /hpf Ur Squamous Epith Cells (0-5) /hpf Amorphous Sediment Urine Bacteria (NONE) /hpf Fine Granular Cast s /lpf Urine Mucus /hpf Urine Opiates Scre en Negative (Negative) ng/mL Ur Barbiturates Sc reen Positive H (Negative) ng/mL Phenytoin (10-20) ug/mL Ur Phencyclidine S crn Negative (Negative) ng/mL Ur Amphetamines Sc reen Negative (Negative) ng/mL U Benzodiazepines Scrn Negative (Negative) ng/mL Urine Cocaine Scre en Negative (Negative) ng/mL U Marijuana (THC) Screen Negative (Negative) ng/mL Critical Care Time Critical Care Time: Critical Care Time: Yes Total Critical Care Time: 120 Attestation: Patient had a seizure just prior to arrival he was postictal required suctioning airway monitoring. Patient had 3 more seizures while in the emergency department requiring multiple reevaluations medications patient was in status epilepticus and required intubation as well as interpretation of x-rays laboratory work. Consulted with the hospitalist here as well as patient also requiring transfer to a higher level of care numerous medications as well administered and reviewed Discharge Plan Discharge Patient Disposition: Xfer Short-Term Hosp Clinical Impression: Status epilepticus, Generalized epilepsy Condition: Fair Referrals: Candi Latif FNP-C [Primary Care Provider] - Coding Level of Care Code ED Junior Net Developer for Antonio Avila
--- NOTE | 2021-02-16 12:38 | PC.NURSE ---
XR done at bedside
[2021-02-16] MEDS: cefTRIAXone 1,000 MG in sodium chloride 0.9% (plus) 50 ML 100 MG IV (13:10)
[2021-02-16] MEDS: propofol 1,000 MG/100 ML INJ 21.99 MG IV (15:12)
== END 2021-02-16 16:10 | disposition short-term general hospital (02) ==
PROVIDERS: Emergency Provider Emergency Medicine; PCP Nurse Practitioner
DX: G40.401 Other generalized epilepsy and epileptic syndromes, not intractable, with status epilepticus (principal); I10 Essential (primary) hypertension
CPT/HCPCS: 51702; 70450; 71045; 72125; 80053; 80185; 80306; 81001; 85025; 87070; 87205; 94002; 94799; 96365; 96367; 96372; 96375; 99291; 99292; J0330; J0696; J1953; J2060; J2704; J3490; Q2009

== ENCOUNTER 2021-02-26 13:07 | Outpatient (CLI) | payer MEDICARE, MEDICAID, SELFPAY | END 2021-02-26 13:08 | disposition home or self-care (01) | LOC: WOUND 13:08 | PROVIDERS: PCP Nurse Practitioner; Visit Provider Nurse Practitioner Family | DX: L98.492 Non-pressure chronic ulcer of skin of other sites with fat layer exposed (principal) | CPT/HCPCS: 11042; G0463 ==

== ENCOUNTER 2021-02-27 08:07 | Outpatient (CLI) | payer MEDICARE, MEDICAID, SELFPAY ==
--- NOTE | 2021-02-27 08:45 | US_ITS ---
WS: [id number] INDICATION: Abscess TECHNIQUE: Ultrasound soft tissue left arm FINDINGS: Ultrasound soft tissue left arm. Diffuse subcutaneous edema consistent with cellulitis. No evidence of drainable abscess or fluid collection. No other significant findings. US/US soft tissue/extremity [id number] IMPRESSION: Subcutaneous edema consistent with cellulitis. No abscess or fluid collection.
== END 2021-02-27 08:08 | disposition home or self-care (01) ==
LOC: RAD 08:09
PROVIDERS: PCP Nurse Practitioner; Visit Provider Nurse Practitioner Family
DX: L03.114 Cellulitis of left upper limb (principal); R60.0 Localized edema
CPT/HCPCS: 76882

== ENCOUNTER 2021-03-05 13:14 | Outpatient (CLI) | payer MEDICARE, MEDICAID, SELFPAY | END 2021-03-05 13:15 | disposition home or self-care (01) | LOC: WOUND 13:15 | PROVIDERS: PCP Nurse Practitioner; Visit Provider Thoracic Surgery (Cardiothoracic Vascular Surgery) | DX: L98.492 Non-pressure chronic ulcer of skin of other sites with fat layer exposed (principal) | CPT/HCPCS: 97597 ==

== ENCOUNTER 2021-03-19 14:37 | Outpatient (CLI) | payer MEDICARE, SELFPAY | END 2021-03-19 14:38 | disposition home or self-care (01) | LOC: WOUND 14:43 | PROVIDERS: PCP Nurse Practitioner; Visit Provider Thoracic Surgery (Cardiothoracic Vascular Surgery) | DX: I73.9 Peripheral vascular disease, unspecified (principal); L98.492 Non-pressure chronic ulcer of skin of other sites with fat layer exposed | CPT/HCPCS: 11042 ==

== ENCOUNTER 2021-03-26 13:03 | Outpatient (CLI) | payer MEDICARE, MEDICAID, SELFPAY | END 2021-03-26 13:04 | disposition home or self-care (01) | LOC: WOUND 13:05 | PROVIDERS: PCP Nurse Practitioner; Visit Provider Nurse Practitioner Family | DX: L98.492 Non-pressure chronic ulcer of skin of other sites with fat layer exposed (principal) | CPT/HCPCS: G0463 ==

== ENCOUNTER 2021-04-02 13:14 | Outpatient (CLI) | payer MEDICARE, MEDICAID, SELFPAY | END 2021-04-02 13:15 | disposition home or self-care (01) | LOC: WOUND 13:15 | PROVIDERS: PCP Nurse Practitioner; Visit Provider Thoracic Surgery (Cardiothoracic Vascular Surgery) | DX: L98.492 Non-pressure chronic ulcer of skin of other sites with fat layer exposed (principal) | CPT/HCPCS: 11042 ==

== ENCOUNTER 2021-04-09 10:18 | Outpatient (CLI) | payer MEDICARE, MEDICAID, SELFPAY | END 2021-04-09 10:19 | disposition home or self-care (01) | LOC: WOUND 10:19 | PROVIDERS: PCP Nurse Practitioner; Visit Provider Thoracic Surgery (Cardiothoracic Vascular Surgery) | DX: I96 Gangrene, not elsewhere classified (principal); L98.492 Non-pressure chronic ulcer of skin of other sites with fat layer exposed | CPT/HCPCS: 11042 ==

== ENCOUNTER 2021-04-16 10:15 | Outpatient (CLI) | payer MEDICARE, MEDICAID, SELFPAY | END 2021-04-16 10:16 | disposition home or self-care (01) | LOC: WOUND 10:17 | PROVIDERS: PCP Nurse Practitioner; Visit Provider Thoracic Surgery (Cardiothoracic Vascular Surgery) | DX: I96 Gangrene, not elsewhere classified (principal); L98.492 Non-pressure chronic ulcer of skin of other sites with fat layer exposed; L97.812 Non-pressure chronic ulcer of other part of right lower leg with fat layer exposed | CPT/HCPCS: 11042; 97597; 97598 ==

== ENCOUNTER 2021-04-23 09:25 | Outpatient (CLI) | payer MEDICARE, MEDICAID, SELFPAY | END 2021-04-23 09:26 | disposition home or self-care (01) | LOC: WOUND 09:26 | PROVIDERS: PCP Nurse Practitioner; Visit Provider Nurse Practitioner Family | DX: L98.492 Non-pressure chronic ulcer of skin of other sites with fat layer exposed (principal); L97.912 Non-pressure chronic ulcer of unspecified part of right lower leg with fat layer exposed | CPT/HCPCS: 11042; 11045 ==

== ENCOUNTER 2021-04-25 13:22 | Outpatient (CLI) | payer MEDICARE, MEDICAID, SELFPAY | END 2021-04-25 13:23 | disposition home or self-care (01) | LOC: WOUND 13:29 | PROVIDERS: PCP Nurse Practitioner; Visit Provider Surgery | DX: L03.114 Cellulitis of left upper limb (principal) | CPT/HCPCS: 29581 ==

== ENCOUNTER 2021-04-30 08:46 | Outpatient (CLI) | payer MEDICARE, MEDICAID, SELFPAY | END 2021-04-30 08:47 | disposition home or self-care (01) | LOC: WOUND 08:48 | PROVIDERS: PCP Nurse Practitioner; Visit Provider Thoracic Surgery (Cardiothoracic Vascular Surgery) | DX: I96 Gangrene, not elsewhere classified (principal); I87.2 Venous insufficiency (chronic) (peripheral); L97.812 Non-pressure chronic ulcer of other part of right lower leg with fat layer exposed; L98.492 Non-pressure chronic ulcer of skin of other sites with fat layer exposed | CPT/HCPCS: 11042; 11045 ==

== ENCOUNTER 2021-05-07 13:02 | Outpatient (CLI) | payer MEDICARE, MEDICAID, SELFPAY | END 2021-05-07 13:03 | disposition home or self-care (01) | LOC: WOUND 13:05 | PROVIDERS: PCP Nurse Practitioner; Visit Provider Thoracic Surgery (Cardiothoracic Vascular Surgery) | DX: I87.2 Venous insufficiency (chronic) (peripheral) (principal); L97.812 Non-pressure chronic ulcer of other part of right lower leg with fat layer exposed; L98.492 Non-pressure chronic ulcer of skin of other sites with fat layer exposed | CPT/HCPCS: 97597; 97598 ==

== ENCOUNTER 2021-05-09 13:06 | Outpatient (CLI) | payer MEDICARE, MEDICAID, SELFPAY | END 2021-05-09 13:07 | disposition home or self-care (01) | LOC: WOUND 13:07 | PROVIDERS: PCP Nurse Practitioner; Visit Provider Surgery | DX: L03.114 Cellulitis of left upper limb (principal); L97.819 Non-pressure chronic ulcer of other part of right lower leg with unspecified severity | CPT/HCPCS: 29581 ==

== ENCOUNTER 2021-05-09 19:58 | Inpatient (IN) | payer MEDICARE, MEDICAID, SELFPAY ==
[2021-05-09] VITALS (17 sets, daily range): BP systolic 102–208; BP diastolic 61–99; PULSE 62–98; RESP 12–19; TEMP 36.7–36.9; O2SAT 88–100; BMI 46.2
--- NOTE | 2021-05-09 20:03 | CTR_ITS ---
PROCEDURE INFORMATION: Exam: CT Head Without Contrast Exam date and time: 05/09/2021 8:03 PM Age: 50 years old Clinical indication: Patient HX: Multiple witnessed seizures. History of seizure disorder. Intubated. TECHNIQUE: Imaging protocol: Computed tomography of the head without contrast. Radiation optimization: All CT scans at this facility use at least one of these dose optimization techniques: automated exposure control; mA and/or kV adjustment per patient size (includes targeted exams where dose is matched to clinical indication); or iterative reconstruction. COMPARISON: CT head wo con* [id number] 02/16/2021 12:10 PM RADIATION DOSE METRICS: Total DLP (mGy-cm): 1106.78 FINDINGS: Brain: No hemorrhage. No cerebral edema. Unremarkable white matter. No mass effect or midline shift. Cerebral ventricles: No ventriculomegaly. Paranasal sinuses: Small mucosal retention cyst in the right maxillary sinus. The rest of paranasal sinuses are well pneumatized. No fluid levels. Mastoid air cells: Visualized mastoid air cells are well aerated. Bones/joints: Unremarkable. No acute fracture. Soft tissues: Unremarkable. CT/CT head wo con* [id number] IMPRESSION: No acute intracranial abnormality. Radiation Dose CTDIVOL = (mGy): DLP = 1106.78 (mGy-cm)
--- NOTE | 2021-05-09 20:03 | XRR_ITS ---
PROCEDURE INFORMATION: Exam: XR Chest Exam date and time: 05/09/2021 8:03 PM Age: 50 years old Clinical indication: Other: Seizure TECHNIQUE: Imaging protocol: XR of the chest. Views: 1 view. COMPARISON: CR (CHEST, ) 02/16/2021 12:31 PM FINDINGS: Tubes, catheters and devices: Endotracheal tube noted 4 cm with jim. Enteric tube terminates within the stomach. Lungs: Unremarkable. No consolidation. Pleural spaces: Unremarkable. No pleural effusion. No pneumothorax. Heart/Mediastinum: Unremarkable. No cardiomegaly. Bones/joints: Unremarkable. XR/XR chest 1V portable [id number] IMPRESSION: 1. Endotracheal and enteric tubes in proper positioning. 2. No acute findings.
--- NOTE | 2021-05-09 20:04 | ECG_ITS ---
[facility] Test Date: 2021-05-09 Pat Name: Jaziel Willis Department: Room: [facility] Gender: Male Solid Waste Engineer: : 1970 Requested By: Sulma Butler Order Number: [id number] Tucker MD: Delma Saldana M.D. Measurements Intervals [place] Rate: 110 P: 48 [place]: 182 QRS: 34 QRSD: 96 T: 55 QT: 343 QTc: 466 Interpretive Statements SINUS TACHYCARDIA Compared to ECG 08/07/2020 22:54:20 Sinus rhythm no longer present Electronically Signed On 05-12-2021 19:18:59 CDT by Delma Saldana M.D. [id number]
--- NOTE | 2021-05-09 20:07 | W.ED.SEIZURE ---
HPI - Seizure General: Chief Complaint: Seizure Stated Complaint: seizure, intubated Time Seen by Provider: 05/09/21 20:00 Source: EMS Mode of arrival: EMS Limitations: altered mental status History of Present Illness: HPI Narrative: 50-year-old male has extensive history of seizures is on Dilantin and Keppra at home. Patient had a seizure today and EMS was called. Patient had another seizure while they were there and gave him 2 mg Ativan that stopped the seizure. He states that then when he was in the EMS he had another seizure and they intubated him. He is in abated to protect his airway aches he is postictal. Patient is currently intubated and no history is available. Per EMS family states he been taking his medicine. Seizure History: Yes Review of Systems General: Reports: ROS unobtainable due to medical condition PFS ED PFSH: Medical History Hypertension Intellectual disability Leukocytosis Morbid obesity Nonhealing nonsurgical wound Peripheral vascular disease Seizure Venous stasis dermatitis Surgical History S/P vein stripping Family History Father Cancer Lung cancer Mother CAD (coronary artery disease) Other Diabetes Heart disease Hypertension Denies family history of Stroke Social History Second hand smoke exposure: No Smoking risk assessment/counseling performed?: No Alcohol intake: never Desire information about alcohol rehabilitation?: No Counseling given: No Desire information about substance/drug rehabilitation?: No Counseling given: No Caregiver/support person: Yes Lives independently: No Household members: family Marital status: Single service: No Current occupational status: disabled History of recent travel: No Current gender identity: Male Physical Exam Const: COMMON NORMALS: negative for patient oriented x3 OTHER: pt is intubated HENMT: COMMON NORMALS: normocephalic and atraumatic HEAD & SCALP: normocephalic and atraumatic Eye: COMMON NORMALS: Equal, round and reactive pupils present and EOMs intact bilaterally PUPIL: Yes Equal, round and reactive pupils present Neck/C-Spine: COMMON NORMALS: full ROM and supple Chest: COMMONS NORMALS: normal inspection of the chest and normal palpation of entire chest wall Resp: COMMON NORMALS: normal respiratory effort, No retractions, No use of accessory muscles and clear to auscultation bilaterally AUSCULTATION: clear to auscultation bilaterally Cardio: COMMON NORMALS: regular rate, regular rhythm and No murmurs present (Cardio) RATE: regular rate RHYTHM: regular rhythm GI: COMMON NORMALS: Normal to inspection, nondistended, normoactive bowel sounds present, Soft to palpation, non-tender and no masses PALPATION: Yes Soft to palpation Extremity: COMMON NORMALS: normal to inspection and full ROM Neuro: COMMON NORMALS: negative for patient oriented x3 OTHER: intubated Psych: COMMON NORMALS: negative for mental status grossly normal Skin: COMMON NORMALS: no rashes or lesions noted and no wounds GENERAL SKIN EXAM: no rashes or lesions noted Course Vital Signs: Vital signs: Vital Signs Temperature 98.1 F 05/09/21 22:48 Pulse Rate 64 05/09/21 22:48 Respiratory Rate 16 05/09/21 22:48 Blood Pressure 102/64 05/09/21 22:48 Pulse Oximetry 100 05/09/21 22:48 MDM - Seizure MDM Narrative: Medical decision making narrative: Patient presents here with seizure and was intubated in the field due to status. He has been stable here and well-appearing here. His head CT here is normal. His Dilantin level was low I did load him with Keppra. Will admit to the ICU at this time. Lab Data: Labs: Lab Results 05/09/21 05/09/21 Range/Units 20:15 20:15 WBC 20.2 H (4.0-10.0) 10^3/ uL RBC 4.91 (4.1-5.3) 10^6/u L Hgb 15.6 (11.7-16.6) g/dL Hct 46.9 (42.0-52.0) % MCV 95.5 H (80-94) fl MCH 31.8 (28.0-34.0) pg MCHC 33.3 (30.0-36.0) g/dL RDW 13.9 (12.1-15.1) % Plt Count 277 (130-400) 10^3/c mm MPV 9.9 (7.4-10.4) fL Neut % (Auto) 61.7 % Lymph % (Auto) 22.3 % [place] % (Auto) 9.8 % Eos % (Auto) 3.8 % Baso % (Auto) 0.6 % Neut # (Auto) 12.46 H (1.8-7.7) 10^3/u L Lymph # (Auto) 4.5 (0.8-4.8) 10^3/u L [place] # (Auto) 2.0 H (0.2-0.9) 10^3/u L Eos # (Auto) 0.8 (0.0-0.8) 10^3/u L Baso # (Auto) 0.1 (0.0-0.1) 10^3/u L Nucleated RBC % (a uto) 0 % Nucleated RBCs # 0.0 /100WBC Sodium 136 (136-145) mmol/L Potassium 3.8 (3.5-5.1) mmol/L Chloride 97 L (98-107) mmol/L Carbon Dioxide 22 (22-29) mmol/L Anion Gap 20.8 H (5-19) BUN 9 (6-20) mg/dL Creatinine 0.7 (0.7-1.2) mg/dL GFR Calculation 119.9 (90-130) mL/min Glucose 176 H (65-115) mg/dL Calculated Osmolal ity 285 (285-295) mOsm/k g Calcium 8.6 (8.5-10.5) mg/dL Total Bilirubin 0.4 (0.15-1.2) mg/dL AST 24 (0-40) U/L ALT 15 (0-41) U/L Alkaline Phosphata se 123 (40-130) IU/L Total Protein 7.2 (6.6-8.7) g/dL Albumin 4.4 (3.5-5.2) g/dL Globulin 2.8 (1.3-4.6) g/dL Phenytoin 6.0 L (10-20) ug/mL Imaging Data^: CXR: Radiologist's impression: [address] [place] [id number] XRay Report Signed Patient: Leonel Willisic W Unit #: [id number] : 1970 Age/Sex: 50 / M ADM Date: 05/09/21 Loc: ER Room/Bed: Attending Dr: Ordering Provider/Ordering MD: Sulma Butler MD Date of Service: 05/09/21 Procedure(s): XR chest 1V portable [id number] Accession Number(s): [id number] Report Number: [id number] PROCEDURE INFORMATION: Exam: XR Chest Exam date and time: 05/09/2021 8:03 PM Age: 50 years old Clinical indication: Other: Seizure TECHNIQUE: Imaging protocol: XR of the chest. Views: 1 view. COMPARISON: CR (CHEST, ) 02/16/2021 12:31 PM FINDINGS: Tubes, catheters and devices: Endotracheal tube noted 4 cm with jim. Enteric tube terminates within the stomach. Lungs: Unremarkable. No consolidation. Pleural spaces: Unremarkable. No pleural effusion. No pneumothorax. Heart/Mediastinum: Unremarkable. No cardiomegaly. Bones/joints: Unremarkable. XR/XR chest 1V portable [id number] IMPRESSION: 1. Endotracheal and enteric tubes in proper positioning. 2. No acute findings. Dictated By: Burke Farooq DO Signed By: Burke Farooq DO Signed Date/Time: 05/09/212045 DD/ 43 CT Head: Attestation: I personally reviewed and interpreted this imaging study as follows: Radiologist's impression: [address] [address] [address] Scan Report Signed Patient: Jaziel Willis Unit #: [id number] : 1970 Age/Sex: 50 / M ADM Date: 05/09/21 Loc: ER Room/Bed: Attending Dr: Ordering Provider/Ordering MD: Sulma Butler MD Date of Service: 05/09/21 Procedure(s): CT head wo con* [id number] Accession Number(s): [id number] Report Number: [id number] PROCEDURE INFORMATION: Exam: CT Head Without Contrast Exam date and time: 05/09/2021 8:03 PM Age: 50 years old Clinical indication: Patient HX: Multiple witnessed seizures. History of seizure disorder. Intubated. TECHNIQUE: Imaging protocol: Computed tomography of the head without contrast. Radiation optimization: All CT scans at this facility use at least one of these dose optimization techniques: automated exposure control; mA and/or kV adjustment per patient size (includes targeted exams where dose is matched to clinical indication); or iterative reconstruction. COMPARISON: CT head wo con* [id number] 02/16/2021 12:10 PM RADIATION DOSE METRICS: Total DLP (mGy-cm): 1106.78 FINDINGS: Brain: No hemorrhage. No cerebral edema. Unremarkable white matter. No mass effect or midline shift. Cerebral ventricles: No ventriculomegaly. Paranasal sinuses: Small mucosal retention cyst in the right maxillary sinus. The rest of paranasal sinuses are well pneumatized. No fluid levels. Mastoid air cells: Visualized mastoid air cells are well aerated. Bones/joints: Unremarkable. No acute fracture. Soft tissues: Unremarkable. CT/CT head wo con* [id number] IMPRESSION: No acute intracranial abnormality. Radiation Dose CTDIVOL = (mGy): DLP = 1106.78 (mGy-cm) Dictated By: Burke Farooq DO Signed By: Burke Farooq DO Signed Date/Time: 05/09/212128 DD/ 26 EKG Data^: EKG 1: Attestation: I personally reviewed and interpreted this EKG as follows: EKG interpretation date: 05/09/21 EKG interpretation time: 20:26 Interpretation: sinus tach hr [address] or t wave abnormalities qrs 96 qtc 408 Critical Care Time Critical Care Time: Critical Care Time: Yes Total Critical Care Time: 36 Attestation: This case had a high probability of a clinically significant, sudden, or life threatening deterioration of this patient's condition which required my full and direct attention, intervention and personal management. Discharge Plan Discharge Patient Disposition: Admitted As Inpatient Admit Provider: Jennifer Larry Clinical Impression: Status epilepticus Condition: Stable Coding Level of Care Code ED Materials Scientist for Chg Fwd Exam Comprehensive
[2021-05-09 20:21] LABS: Basophils # 0.1 10^3/uL (0.0-0.1); Basophils % 0.6 %; Eosinophils # 0.8 10^3/uL (0.0-0.8); Eosinophils % 3.8 %; Hematocrit 46.9 % (42.0-52.0); Hemoglobin 15.6 g/dL (11.7-16.6); Lymphocytes # 4.5 10^3/uL (0.8-4.8); Lymphocytes % 22.3 %; Mean Corpuscular HGB Conc 33.3 g/dL (30.0-36.0); Mean Corpuscular Hemoglobin 31.8 pg (28.0-34.0); Mean Corpuscular Volume 95.5 fl (80-94); Mean Platelet Volume 9.9 fL (7.4-10.4); Monocytes % 9.8 %; Neutrophils # 12.46 10^3/uL (1.8-7.7); Neutrophils % 61.7 %; Nucleated Red Blood Cells % 0 %; Platelet Count 277 10^3/cmm (130-400); Red Blood Count 4.91 10^6/uL (4.1-5.3); Red Cell Distribution Width 13.9 % (12.1-15.1); White Blood Count 20.2 10^3/uL (4.0-10.0)
[2021-05-09] MEDS: propofol 1,000 MG/100 ML INJ 5.17 MG IV (20:35)
[2021-05-09 20:50] LABS: Alanine Aminotransferase 15 U/L (0-41); Albumin Level 4.4 g/dL (3.5-5.2); Alkaline Phosphatase 123 IU/L (40-130); Blood Urea Nitrogen 9 mg/dL (6-20); Calcium 8.6 mg/dL (8.5-10.5); Carbon Dioxide 22 mmol/L (22-29); Chloride 97 mmol/L (98-107); Globulin 2.8 g/dL (1.3-4.6); Glomerular Filtration Rate 119.9 mL/min (90-130); Glucose 176 mg/dL (65-115); Osmolality Calculated 285 mOsm/kg (285-295); Sodium 136 mmol/L (136-145); Total Bilirubin 0.4 mg/dL (0.15-1.2); Total Protein 7.2 g/dL (6.6-8.7)
[2021-05-09 20:59] LABS: Anion Gap 20.8 (5-19); Potassium 3.8 mmol/L (3.5-5.1)
[2021-05-09 21:00] LABS: Aspartate Amino Transferase 24 U/L (0-40)
--- NOTE | 2021-05-09 22:12 | PC.NURSE ---
returned goods inspector to call back, tried to call report.
--- NOTE | 2021-05-09 23:08 | P.HP_ITS ---
Providers/Chief Complaint Admitting Physician: Jennifer Larry MD Primary Care Provider: NIRANJAN Drummond Chief Complaint: seizure, intubated History of Present Illness Jaziel Willis is a 50 year old male with developmental delay and known seizure disorder with h/o multiple episodes of breakthrough seizures and status epilepticus in the past needing intubation. Presents today due to 2 epsiodes of seziures this evening. EMS was called, he was intubated after the 2nd seizure due to low GCS and concerns for airway protection . He is compliant with his medications reportedly. Follows with neurology as outpatient Review of Systems General: Reports: ROS unobtainable due to endotracheal tube and ROS unobtainable due to medical condition Medications/Allergies Home Medications Medication Instructions Recorded Confirmed Last Taken Type lorazepam 2 mg/mL oral concentrate 2 mg PO DAILY PRN #30 ml 08/14/20 05/09/21 05/09/21 Rx Compression hose #1 ea 09/21/20 05/09/21 Unknown Rx Compression hose #1 ea 09/21/20 05/09/21 Unknown Rx phenytoin 50 mg chewable tablet 150 mg PO Q8H #270 tab 03/12/21 05/09/21 05/09/21 Rx trazodone 100 mg tablet 100 mg PO BEDTIME #30 tab 03/21/21 05/09/21 05/08/21 Rx levetiracetam [Keppra] 1,500 mg PO BID 05/09/21 05/09/21 05/09/21 History Allergies Allergy/AdvReac Type Severity Reaction Status Date / Time No Known Allergies Allergy Verified 11/20/20 15:26 PFSH Acute PFSH: Medical History Hypertension Intellectual disability Leukocytosis Morbid obesity Nonhealing nonsurgical wound Peripheral vascular disease Seizure Venous stasis dermatitis Surgical History S/P vein stripping Family History Father Cancer Lung cancer Mother CAD (coronary artery disease) Other Diabetes Heart disease Hypertension Denies family history of Stroke Social History Second hand smoke exposure: No Smoking risk assessment/counseling performed?: No Alcohol intake: never Desire information about alcohol rehabilitation?: No Counseling given: No Desire information about substance/drug rehabilitation?: No Counseling given: No Caregiver/support person: Yes Lives independently: No Household members: family Marital status: Single service: No Current occupational status: disabled History of recent travel: No Current gender identity: Male Vitals/I&O/Wt Last Vital Signs Temp 98.1 F 05/09/21 22:48 Pulse 64 05/09/21 22:48 Resp 16 05/09/21 22:48 BP 102/64 05/09/21 22:48 Pulse Ox 100 05/09/21 22:48 05/09/21 05/09/21 05/10/21 14:59 22:59 06:59 Intake Total 6.376 / 6.376 Balance 6.376 / 6.376 Weight last 48 hrs Weight 172.365 kg Physical Exam Narrative: EXAM NARRATIVE: General: intubated, sedated HEENT: pupils bilaterally equal and reactive, pallor not present Chest: Normal vesicular breath sounds, no added sounds, equal good air entry bilaterally CVS: S1-S2 regular, no murmurs, no tachycardia, no gallops, no rubs Abdomen: Soft, nontender, no organomegaly, bowel sounds present Neuro: intubated, sedated Ext: multiple ulcers under care at [facility], over left forearm, venous leg ulcers B/L Data : 05/09/21 20:15 05/09/21 20:15 A&P Assessment and plan (1) Status epilepticus: Admit to ICU Intubated in field due to Low GCS No further seizures noted since arrival at ER CT head without acute abnormalities Loaded with Keppra 1000mg , continue 1500mg BID dosing thereafter Check Keppra, Dilantin level CXR without consolidation Noted leukocytosis which may be 2/2 stres sreaction from seizure. reveiw of past numbers show WBC count ranging between 16-25 at a baseline Iv hydration Status: Acute Attestations Medical Necessity Statement*: anticipate >2midnight admission for above def ined care Coding Level of Care Code Acute Cable Technician for g Fwd Diagnoses Status epilepticus G40.901
[2021-05-09 23:24] LABS: ABG PH Result 7.41 (7.35-7.45); Blood Gas Allen Test Pos; Blood Gas Operator Identificat Anonymous; Blood Gas Sample Type Arterial; HCO3 ABG 28.2 mmol/L (22-26)
[2021-05-09 23:25] LABS: ABG PCO2 44.7 mmHg (35-45); Base Excess ABG 2.8 mmol/L (-2.0-2.0); Blood Gas Sample Site Radial, left
[2021-05-09 23:29] LABS: Oxygen Device VENT
[2021-05-10] VITALS (173 sets, daily range): BP systolic 102–162; BP diastolic 49–105; PULSE 51–91; RESP 10–16; TEMP 36.6–37.3; O2SAT 92–100
[2021-05-10] MEDS: enoxaparin 40 mg/0.4 mL Syringe SUBCUT ×2 (00:16→23:39)
[2021-05-10] MEDS: famotidine 20 mg/2 mL INJ IVP ×3 (00:16→23:39)
[2021-05-10] MEDS: propofol 1,000 MG/100 ML INJ 25.86 MG IV ×4 (00:30→05:40)
[2021-05-10] MEDS: dextrose 5%-sod chloride 0.9% 1,000 ML 75 ML IV ×2 (01:50→13:55)
[2021-05-10 03:57] LABS: Basophils # 0.1 10^3/uL (0.0-0.1); Basophils % 0.4 %; Eosinophils # 0.4 10^3/uL (0.0-0.8); Eosinophils % 2.8 %; Hematocrit 38.8 % (42.0-52.0); Hemoglobin 13.1 g/dL (11.7-16.6); Lymphocytes % 20.3 %; Mean Corpuscular HGB Conc 33.8 g/dL (30.0-36.0); Mean Corpuscular Hemoglobin 31.9 pg (28.0-34.0); Mean Corpuscular Volume 94.4 fl (80-94); Mean Platelet Volume 10.1 fL (7.4-10.4); Monocytes # 1.3 10^3/uL (0.2-0.9); Monocytes % 8.5 %; Neutrophils # 9.94 10^3/uL (1.8-7.7); Neutrophils % 67.4 %; Nucleated Red Blood Cells % 0 %; Platelet Count 220 10^3/cmm (130-400); Red Blood Count 4.11 10^6/uL (4.1-5.3); White Blood Count 14.7 10^3/uL (4.0-10.0)
[2021-05-10 04:34] LABS: Alanine Aminotransferase 9 U/L (0-41); Albumin Level 3.5 g/dL (3.5-5.2); Alkaline Phosphatase 98 IU/L (40-130); Anion Gap 13.4 (5-19); Aspartate Amino Transferase 17 U/L (0-40); Blood Urea Nitrogen 9 mg/dL (6-20); Carbon Dioxide 24 mmol/L (22-29); Chloride 103 mmol/L (98-107); Globulin 2.8 g/dL (1.3-4.6); Glomerular Filtration Rate 176.7 mL/min (90-130); Glucose 147 mg/dL (65-115); Osmolality Calculated 285 mOsm/kg (285-295); Potassium 3.4 mmol/L (3.5-5.1); Sodium 137 mmol/L (136-145); Total Bilirubin 0.4 mg/dL (0.15-1.2); Total Protein 6.3 g/dL (6.6-8.7)
[2021-05-10 05:01] LABS: ABG PCO2 45.9 mmHg (35-45); ABG PH Result 7.38 (7.35-7.45); Arterial Blood Gas Hematocrit 40.9 % (42-52); Base Excess ABG 1.2 mmol/L (-2.0-2.0); Blood Gas Allen Test Pos; Blood Gas Sample Site Radial, left; Blood Gas Sample Type Arterial; HCO3 ABG 26.9 mmol/L (22-26)
[2021-05-10 05:02] LABS: Oxygen Device VENT
--- NOTE | 2021-05-10 07:08 | PC.NURSE ---
Shift Note Frequent safety and comfort rounds continue. Orders and/or nursing care completed as indicated. Patient monitored for response to intervention and treatment(s). Education provided includes sedation medication. Patient needs reinforcement teaching. Vent settings are as follows; mode-VC-AC, FiO2-30%, VT-500, rate-14, PEEP-8. Left hand IV is saline locked. Left upper arm IV infusing D5 with NS and Right AC IV infusing Propofol and Fentanyl. Please see MAR for infusion rates. Patient has cellulitis on the bilateral lower legs. Right lower leg has a skin ulcer covered with hydrofera blue and the left lower leg has a small skin ulcer open to air. Left arm has a small skin ulcer covered with an optifoam dressing. No other skin issues noted at this time. Patient not alert to painful or verbal stimuli at this time but does withdrawal from pain. Saenz catheter drained 950 mls of straw colored urine overnight. Will continue to monitor.
[2021-05-10] MEDS: propofol 1,000 MG/100 ML INJ 20.68 MG IV (09:07)
--- NOTE | 2021-05-10 09:52 | PC.NURSE ---
recd. sedated with propofol. awakens with tactile and voice stimulation.
--- NOTE | 2021-05-10 10:28 | P.PN_ITS ---
Vitals/I&O/Wt Last Vital Signs Temp 97.9 F 05/10/21 04:00 Pulse 51 L 05/10/21 06:35 Resp 15 05/10/21 08:06 BP 108/65 05/10/21 06:35 Pulse Ox 100 05/10/21 08:06 05/09/21 05/10/21 05/10/21 22:59 06:59 14:59 Intake Total 6.376 / 6.376 250.804 / 257.180 89.217 / 89.217 Output Total 950 / 950 Balance 6.376 / 6.376 -699.196 / -692.820 89.217 / 89.217 Weight last 48 hrs Weight 172.365 kg Data : 05/10/21 03:30 05/10/21 03:30 A&P Assessment and plan (1) Status epilepticus: No further seizures noted since arrival at ER CT head without acute abnormalities. Loaded with Keppra 1000mg , continue 1500mg BID dosing thereafter. Dilantin level is on the lower side. Increase Dilantin to 200 mg every 8 hourly from 150 mg every 8 hourly. CXR without consolidation Noted leukocytosis which may be 2/2 stress reaction from seizure. Reveiw of past numbers show WBC count ranging between 16-25 at a baseline Iv hydration COVID-19 antigen awaiting. Status: Acute (2) Intellectual disability: Status: Chronic (3) Essential hypertension: Status: Chronic (4) Endotracheally intubated: Status: Acute Additional A&P Information Hypertension: Goal blood pressure less than 140/90 mmHg. Plan for the day: Sedation vacation, if no more seizure plan for extubation. Increase the dose of Dilantin to 200 mg every 8 hourly. Start on diet accordingly. Full code. Famotidine for PUD prophylaxis Lovenox for DVT prophylaxis. Attestations Medical Necessity Statement*: Requires further hospitalization endotracheally intubated, breakthrough seizure, status epilepticus. Critical Care Time: The high probability of a clinically significant, sudden or life threatening deterioration of the patient's [pulm, neuro] system(s) required my full and direct attention, intervention and personal management. The critical care time is as shown. This time is in addition to time spent performing any reported procedures but includes the following: [x] Data and vital sign review and interpretation [x] Patient assessment, examination and intervention [x] Documentation [x] Medication orders and management Critical Care Time (min): 80 Coding Level of Care Code Acute Street Light Servicer for Chg Fwd Diagnoses Status epilepticus G40.901 Intellectual disability F79 Essential hypertension I10 Endotracheally intubated Z97.8
[2021-05-10] MEDS: propofol 1,000 MG/100 ML INJ 15.51 MG IV (10:35)
--- NOTE | 2021-05-10 10:37 | PC.NURSE ---
dr. charles in. plan to wean propofol
[2021-05-10] MEDS: PHENYTOIN 25 MG/ML 200 MG PO ×2 (10:53→19:03)
--- NOTE | 2021-05-10 11:34 | PC.NURSE ---
mom notified of covid testing and her not being able to come see him except thru glass door. she is concerned with his emotional state if she cant go in the room. explained i would keep in touch.
[2021-05-10 11:42] LABS: Iron 41 ug/dL (59-158); Percent Saturation 27.5 % (20-50); Total Iron Binding Capacity 149 mcg/dl; Unsaturated Iron Binding 108 ug/dL (112-347)
[2021-05-10 11:49] LABS: Procalcitonin 0.06 ng/mL (0-0.5)
[2021-05-10 12:10] LABS: Thyroid Stimulating Hormone 1.68 uIU/mL (0.27-4.20)
--- NOTE | 2021-05-10 13:32 | PC.NURSE ---
colin in placed on p.s.
--- NOTE | 2021-05-10 14:58 | PC.NURSE ---
1450-extubated to 4l. alfonso. well. speech impediment.
--- NOTE | 2021-05-10 15:02 | PC.NURSE ---
mom notified of extubation
--- NOTE | 2021-05-10 16:25 | PC.NURSE ---
nursing dysphagia swallow study done with no choking or coughing. took 1 carton mae. alfonso. well. stated i've got to get out of this place, and smiled. explained he needed to spend the noc. with us.
--- NOTE | 2021-05-10 18:58 | PC.NURSE ---
ate supper w/o difficulty. got up to side of bed, with minimal assist.
[2021-05-11] VITALS (99 sets, daily range): BP systolic 98–163; BP diastolic 58–102; PULSE 59–90; RESP 20; TEMP 37.2–37.3; O2SAT 93–99
[2021-05-11 04:06] LABS: Basophils # 0.1 10^3/uL (0.0-0.1); Basophils % 0.3 %; Eosinophils # 0.4 10^3/uL (0.0-0.8); Eosinophils % 2.6 %; Hematocrit 39.5 % (42.0-52.0); Hemoglobin 13.3 g/dL (11.7-16.6); Lymphocytes # 2.6 10^3/uL (0.8-4.8); Lymphocytes % 16.8 %; Mean Corpuscular HGB Conc 33.7 g/dL (30.0-36.0); Mean Corpuscular Hemoglobin 31.7 pg (28.0-34.0); Mean Corpuscular Volume 94.3 fl (80-94); Mean Platelet Volume 10.3 fL (7.4-10.4); Monocytes # 1.5 10^3/uL (0.2-0.9); Monocytes % 9.5 %; Neutrophils # 11.04 10^3/uL (1.8-7.7); Neutrophils % 70.3 %; Nucleated Red Blood Cells % 0 %; Platelet Count 181 10^3/cmm (130-400); Red Blood Count 4.19 10^6/uL (4.1-5.3); Red Cell Distribution Width 13.8 % (12.1-15.1); White Blood Count 15.7 10^3/uL (4.0-10.0)
[2021-05-11 04:32] LABS: Alanine Aminotransferase < 5 U/L (0-41); Albumin Level 3.5 g/dL (3.5-5.2); Alkaline Phosphatase 93 IU/L (40-130); Anion Gap 12.5 (5-19); Aspartate Amino Transferase 13 U/L (0-40); Blood Urea Nitrogen 7 mg/dL (6-20); Calcium 8.1 mg/dL (8.5-10.5); Carbon Dioxide 25 mmol/L (22-29); Chloride 104 mmol/L (98-107); Globulin 2.5 g/dL (1.3-4.6); Glomerular Filtration Rate 228.6 mL/min (90-130); Glucose 96 mg/dL (65-115); Osmolality Calculated 284 mOsm/kg (285-295); Potassium 3.5 mmol/L (3.5-5.1); Sodium 138 mmol/L (136-145); Total Bilirubin 0.5 mg/dL (0.15-1.2)
[2021-05-11] MEDS: PHENYTOIN 25 MG/ML 200 MG PO ×2 (04:45→09:59)
--- NOTE | 2021-05-11 05:09 | PC.NURSE ---
Shift Note Frequent safety and comfort rounds continue. Orders and/or nursing care completed as indicated. Patient monitored for response to intervention and treatment(s). Education provided includes seizure precautions and Keppra. Patient requires reinforcement teaching. Saenz catheter drained 100 mls of dark yellow urine overnight. Patient is on room air. He had no complaints of pain all evening and repositions himself in the bed. Patient is oriented to self and time only, he does follow commands. D5 with NS is infusing in the left upper arm. Right AC and left hand IV are saline locked at this time. Patient has cellulitis on the bilateral lower legs. Right lower leg has a skin ulcer and the left lower leg has a small skin ulcer open to air. No other skin issues noted at this time. Will continue to monitor.
[2021-05-11] MEDS: dextrose 5%-sod chloride 0.9% 1,000 ML 75 ML IV (07:57)
--- NOTE | 2021-05-11 11:10 | PM.DCS ---
Discharge Providers Date of Admission: 05/09/21 22:02 Date of Discharge: May 11, 2021 Attending Provider at Admission: Jennifer Larry MD Attending Provider at Discharge: Mg Wilson MD Primary Care Provider: NIRANJAN Drummond Diagnoses at Discharge Discharge Diagnosis (1) Status epilepticus: Status: Acute (2) Intellectual disability: Status: Chronic (3) Essential hypertension: Status: Chronic (4) Endotracheally intubated: Status: Acute Reason for Visit Reason for Visit: seizure, intubated Hospital Course Hospital Course Jaziel Willis is a 50 year old male with developmental delay and known seizure disorder with h/o multiple episodes of breakthrough seizures and status epilepticus in the past needing intubation. Presents today due to 2 epsiodes of seziures this evening. EMS was called, he was intubated after the 2nd seizure due to low GCS and concerns for airway protection . He is compliant with his medications reportedly. Follows with neurology as outpatient. Patient returned to the ICU and was loaded with Keppra. He was found to have low Dilantin levels for which her dose of Dilantin was increased. By morning patient's mentation improved and he was extubated. Patient was monitored in the ICU for 1 more day. He did not have any further seizure episodes. On admission he was found to have mild leukocytosis which on looking back has been his stable numbers. Sputum culture grew gram-negative rods. Patient maintained his oxygenation on room air and is back to his baseline mentation. Is been discharged in hemodynamically stable condition advised to continue his home dose of Keppra and an increased dose of phenytoin. He is also advised to follow-up with his outpatient neurologist within next 1 week. Physical Exam Narrative: EXAM NARRATIVE: General: No acute distress, AO x3 HEENT: PERRLA, pupils bilaterally equal and reactive Chest: Normal vesicular breath sounds, no added sounds, equal good air entry bilaterally CVS: S1-S2 regular, no murmurs, no tachycardia, no gallops, no rubs Abdomen: Soft, nontender, no organomegaly, bowel sounds present Neuro: No focal deficits, no facial deformity, AO x3, power 5/5 in all limbs Discharge Data Data Completed and Pending: Completed Studies During Hospitalization Category Date Time Status CT head wo con* [id number] Urgent Cat Scan 05/09/21 20:03 Completed XR chest 1V jamel ble [id number] Urgent Exams 05/09/21 20:03 Completed Pending at discharge Category Date Time Status Levetiracetam Kep pra Routine Lab 05/09/21 23:15 Received [facility] SARS-CoV-2 RNA Routine Lab 05/10/21 11:04 Received Sputum Culture Ro utine Lab 05/10/21 00:40 Results Labs from last 24 hours 05/11/21 05/11/21 05/10/21 03:10 03:10 11:04 WBC 15.7 H RBC 4.19 Hgb 13.3 Hct 39.5 L MCV 94.3 H MCH 31.7 MCHC 33.7 RDW 13.8 Plt Count 181 MPV 10.3 Neut % (Auto) 70.3 Lymph % (Auto) 16.8 [place] % (Auto) 9.5 Eos % (Auto) 2.6 Baso % (Auto) 0.3 Neut # (Auto) 11.04 H Lymph # (Auto) 2.6 [place] # (Auto) 1.5 H Eos # (Auto) 0.4 Baso # (Auto) 0.1 Nucleated RBC % (a uto) 0 Nucleated RBCs # 0.0 Sodium 138 Potassium 3.5 Chloride 104 Carbon Dioxide 25 Anion Gap 12.5 BUN 7 Creatinine 0.4 L GFR Calculation 228.6 H Glucose 96 Calculated Osmolal ity 284 L Calcium 8.1 L Iron TIBC % Saturation Unsat Iron Binding Total Bilirubin 0.5 AST 13 ALT < 5 Alkaline Phosphata se 93 Total Protein 6.0 L Albumin 3.5 Globulin 2.5 Procalcitonin TSH SARS-CoV-2 RNA (RT -PCR) Pending 05/10/21 05/10/21 03:30 03:30 WBC RBC Hgb Hct MCV MCH MCHC RDW Plt Count MPV Neut % (Auto) Lymph % (Auto) [place] % (Auto) Eos % (Auto) Baso % (Auto) Neut # (Auto) Lymph # (Auto) [place] # (Auto) Eos # (Auto) Baso # (Auto) Nucleated RBC % (a uto) Nucleated RBCs # Sodium Potassium Chloride Carbon Dioxide Anion Gap BUN Creatinine GFR Calculation Glucose Calculated Osmolal ity Calcium Iron 41 L TIBC 149 % Saturation 27.5 Unsat Iron Binding 108 L Total Bilirubin AST ALT Alkaline Phosphata se Total Protein Albumin Globulin Procalcitonin 0.06 TSH 1.68 SARS-CoV-2 RNA (RT -PCR) Addt'l Data from Hospital Stay: Laboratory Results WBC 15.7 10^3/uL (4.0 -10.0) H 05/11/21 03:10 RBC 4.19 10^6/uL (4.1 -5.3) 05/11/21 03:10 Hgb 13.3 g/dL (11.7-1 6.6) 05/11/21 03:10 Hct 39.5 % (42.0-52.0 ) L 05/11/21 03:10 MCV 94.3 fl (80-94) H 05/11/21 03:10 MCH 31.7 pg (28.0-34. 0) 05/11/21 03:10 MCHC 33.7 g/dL (30.0-3 6.0) 05/11/21 03:10 RDW 13.8 % (12.1-15.1 ) 05/11/21 03:10 Plt Count 181 10^3/cmm (130 -400) 05/11/21 03:10 MPV 10.3 fL (7.4-10.4 ) 05/11/21 03:10 Neut % (Auto) 70.3 % 05/11/21 03:10 Lymph % (Auto) 16.8 % 05/11/21 03:10 [place] % (Auto) 9.5 % 05/11/21 03:10 Eos % (Auto) 2.6 % 05/11/21 03:10 Baso % (Auto) 0.3 % 05/11/21 03:10 Neut # (Auto) 11.04 10^3/uL (1. 8-7.7) H 05/11/21 03:10 Lymph # (Auto) 2.6 10^3/uL (0.8- 4.8) 05/11/21 03:10 [place] # (Auto) 1.5 10^3/uL (0.2- 0.9) H 05/11/21 03:10 Eos # (Auto) 0.4 10^3/uL (0.0- 0.8) 05/11/21 03:10 Baso # (Auto) 0.1 10^3/uL (0.0- 0.1) 05/11/21 03:10 Nucleated RBC % (a uto) 0 % 05/11/21 03:10 Nucleated RBCs # 0.0 /100WBC 05/11/21 03:10 Specimen Type Arterial 05/10/21 04:36 Sample Site Radial, left 05/10/21 04:36 ABG pH 7.38 (7.35-7.45) 05/10/21 04:36 ABG pCO2 45.9 mmHg (35-45) H 05/10/21 04:36 ABG pO2 161.0 mmHg (80.0- 100.0) H 05/10/21 04:36 ABG HCO3 26.9 mmol/L (22-2 6) H 05/10/21 04:36 ABG Base Excess 1.2 mmol/L (-2.0- 2.0) 05/10/21 04:36 Ricardo Test Pos 05/10/21 04:36 Hematocrit 40.9 % (42-52) L 05/10/21 04:36 O2 Delivery Device Vent 05/10/21 04:36 FiO2 60.0 % 05/10/21 04:36 Tidal Volume 0.50 05/10/21 04:36 PEEP 8.0 cmH20 05/10/21 04:36 Vehicle Safety Inspector ID Hinja 05/10/21 04:36 Sodium 138 mmol/L (136-1 45) 05/11/21 03:10 Potassium 3.5 mmol/L (3.5-5 .1) 05/11/21 03:10 Chloride 104 mmol/L (98-10 7) 05/11/21 03:10 Carbon Dioxide 25 mmol/L (22-29) 05/11/21 03:10 Anion Gap 12.5 (5-19) 05/11/21 03:10 BUN 7 mg/dL (6-20) 05/11/21 03:10 Creatinine 0.4 mg/dL (0.7-1. 2) L 05/11/21 03:10 GFR Calculation 228.6 mL/min (90- 130) H 05/11/21 03:10 Glucose 96 mg/dL (65-115) 05/11/21 03:10 Calculated Osmolal ity 284 mOsm/kg (285- 295) L 05/11/21 03:10 Calcium 8.1 mg/dL (8.5-10 .5) L 05/11/21 03:10 Iron 41 ug/dL (59-158) L 05/10/21 03:30 TIBC 149 mcg/dl 05/10/21 03:30 % Saturation 27.5 % (20-50) 05/10/21 03:30 Unsat Iron Binding 108 ug/dL (112-34 7) L 05/10/21 03:30 Total Bilirubin 0.5 mg/dL (0.15-1 .2) 05/11/21 03:10 AST 13 U/L (0-40) 05/11/21 03:10 ALT < 5 U/L (0-41) 05/11/21 03:10 Alkaline Phosphata se 93 IU/L (40-130) 05/11/21 03:10 Total Protein 6.0 g/dL (6.6-8.7 ) L 05/11/21 03:10 Albumin 3.5 g/dL (3.5-5.2 ) 05/11/21 03:10 Globulin 2.5 g/dL (1.3-4.6 ) 05/11/21 03:10 Procalcitonin 0.06 ng/mL (0-0.5 ) 05/10/21 03:30 TSH 1.68 uIU/mL (0.27 -4.20) 05/10/21 03:30 Phenytoin 6.0 ug/mL (10-20) L 05/09/21 20:15 Impressions Chest X-Ray 05/09/21 20:03 IMPRESSION: 1. Endotracheal and enteric tubes in proper positioning. 2. No acute findings. Head CT 05/09/21 20:03 IMPRESSION: No acute intracranial abnormality. Radiation Dose CTDIVOL = (mGy): DLP = 1106.78 (mGy-cm) Vitals: Last Vital Signs Temp 99.2 F 05/11/21 04:55 Pulse 70 05/11/21 08:20 Resp 10 L 05/10/21 13:30 BP 148/97 05/11/21 08:20 Pulse Ox 95 05/11/21 08:20 Discharge Plan Discharge Patient Disposition: Home Condition: Stable Prescriptions: New cephalexin [Keflex] 750 mg capsule 750 mg PO Q12H 7 Days Qty: 14 RF: 0 Continued lorazepam 2 mg/mL concentrate 2 mg PO DAILY PRN (Reason: anxiety) Qty: 30 RF: 3 (DME) Compression hose 18/30 See Rx Instructions .Route .MEDSUPPLY Qty: 1 RF: 2 (DME) Compression hose 30/40 See Rx Instructions .Route .MEDSUPPLY Qty: 1 RF: 2 trazodone 100 mg tablet 100 mg PO BEDTIME Qty: 30 RF: 5 levetiracetam [Keppra] 1,000 mg tablet 1,500 mg PO BID RF: 0 Changed phenytoin [Dilantin Infatabs] 50 mg tablet,chewable 200 mg PO Q8H Qty: 270 RF: 3 Discharge Orders: Discharge Order (Routine); Ordered 05/11/21 Ordered By: Mg Wilson Referrals: Amy Forrester MD [Physician] - 1 week Candi Latif FNP-C [Primary Care Provider] - 4-7 days Discharge Diet: Regular Discharge Activity: Resume usual activity Patient Instructions: Opioid Safety Activity Restrictions/Additional Instructions: Dose of phenytoin has been increased to 200 mg 3 times a day. Keflex is the antibiotic for next 7 days. Please follow-up with a primary care provider within next 1 week. Please follow-up with your outpatient neurologist within next 1 week. Discharge Attestations Time Spent in Discharge Care*: greater than 30 min Specific Discharge Activities: educating patient, educating and/or supporting family/caregiver, discussing with pcp/other providers, discussing with case specialist/social workers/dc planners, documenting/other paperwork and evaluating patient/reviewing data Status at Discharge: Cognitive status at discharge: moderately impaired cognition, Behavioral status at discharge: cooperative, Functional status at discharge: uses cane/walker Overall status at discharge: patient is back to baseline Quality Metrics Clinical Quality Measures During this hospital stay, did patient experience: None Coding Level of Care Code Acute Chg FW DC note Diagnoses Status epilepticus G40.901 Intellectual disability F79 Essential hypertension I10 Endotracheally intubated Z97.8
[2021-05-11] MEDS: famotidine 20 mg/2 mL INJ IVP (11:42)
--- NOTE | 2021-05-11 15:53 | PC.NURSE ---
Discharge Note Patient discharged to home via personal vehicle accompanied by mom and sisters. Discharge instructions reviewed with patient and/or loss control representative. Mobile pharmacy medications and/or prescriptions provided. Belongings returned. patient was discharged at 1545.
[2021-05-11 18:28] LABS: Quest SARS-CoV-2 RNA NOT DETECTED (NOT DETECTED)
--- NOTE | 2021-05-12 09:51 | PC.SOCIAL ---
discharge follow up call made. spoke with pts mother. patient was resting. mother given follow up appointments. she reports pt will be out of dilantin, advised her she needed to call dr. scott office for a refill or the pharmacy.
[2021-05-14 09:12] LABS: Levetiracetam Keppra <2.0 mcg/mL
== END 2021-05-11 15:45 | disposition home or self-care (01) | DRG 101 ==
LOC: ER 20:18 → ICU 22:08
PROVIDERS: Admitting Provider Student in an Organized Health Care Education/Training Program; Emergency Provider Emergency Medicine; PCP Nurse Practitioner; Visit Provider Student in an Organized Health Care Education/Training Program
DX: G40.901 Epilepsy, unspecified, not intractable, with status epilepticus (principal); Z68.42 Body mass index [BMI] 45.0-49.9, adult; I10 Essential (primary) hypertension; F79 Unspecified intellectual disabilities; E66.01 Morbid (severe) obesity due to excess calories; I73.9 Peripheral vascular disease, unspecified
CPT/HCPCS: 29581; 36415; 36600; 51702; 70450; 71045; 80053; 80177; 80185; 82803; 83540; 83550; 84145; 84443; 85025; 87070; 87077; 87186; 87635; 93005; 94002; 94003; 94664; 94799; 96365; 96366; 96367; 96372; 97597; 97598; 99291; J1650; J1953; J2704; J3010; J3490

== ENCOUNTER 2021-05-13 10:33 | Outpatient (CLI) | payer MEDICARE, MEDICAID, SELFPAY | END 2021-05-13 10:34 | disposition home or self-care (01) | LOC: WOUND 10:34 | PROVIDERS: PCP Nurse Practitioner; Visit Provider Thoracic Surgery (Cardiothoracic Vascular Surgery) | DX: L98.492 Non-pressure chronic ulcer of skin of other sites with fat layer exposed (principal); I87.2 Venous insufficiency (chronic) (peripheral); L97.812 Non-pressure chronic ulcer of other part of right lower leg with fat layer exposed | CPT/HCPCS: 97597; 97598 ==

== ENCOUNTER → 2021-05-19 12:24 | Outpatient (BNVA) | payer MEDICARE, MEDICAID, SELFPAY | PROVIDERS: PCP Nurse Practitioner; Visit Provider Specialist | DX: G40.309 Generalized idiopathic epilepsy and epileptic syndromes, not intractable, without status epilepticus (principal) | CPT/HCPCS: 99214 ==

== ENCOUNTER 2021-05-19 13:57 | Outpatient (CLI) | payer MEDICARE, MEDICAID, SELFPAY ==
[2021-05-19 14:50] LABS: Phenytoin Dilantin 8.7 ug/mL (10-20)
[2021-05-23 23:02] LABS: Levetiracetam Keppra 21.8 mcg/mL
== END 2021-05-19 13:58 | disposition home or self-care (01) ==
PROVIDERS: PCP Nurse Practitioner; Visit Provider Specialist
DX: G40.309 Generalized idiopathic epilepsy and epileptic syndromes, not intractable, without status epilepticus (principal)
CPT/HCPCS: 36415; 80177; 80185

== ENCOUNTER 2021-05-20 12:59 | Outpatient (CLI) | payer MEDICARE, MEDICAID, SELFPAY | END 2021-05-20 13:00 | disposition home or self-care (01) | LOC: WOUND 13:00 | PROVIDERS: PCP Nurse Practitioner; Visit Provider Nurse Practitioner Family | DX: I87.2 Venous insufficiency (chronic) (peripheral) (principal); L97.812 Non-pressure chronic ulcer of other part of right lower leg with fat layer exposed | CPT/HCPCS: 11042; 11045; 87070; 87077; 87176; 87186; 87205 ==

== ENCOUNTER 2021-05-27 10:45 | Outpatient (CLI) | payer MEDICARE, MEDICAID, SELFPAY | END 2021-05-27 10:46 | disposition home or self-care (01) | LOC: WOUND 10:47 | PROVIDERS: PCP Nurse Practitioner; Visit Provider Thoracic Surgery (Cardiothoracic Vascular Surgery) | DX: I87.2 Venous insufficiency (chronic) (peripheral) (principal); L97.812 Non-pressure chronic ulcer of other part of right lower leg with fat layer exposed; L97.822 Non-pressure chronic ulcer of other part of left lower leg with fat layer exposed | CPT/HCPCS: 11042 ==

== ENCOUNTER 2021-05-30 13:44 | Outpatient (CLI) | payer MEDICARE, MEDICAID, SELFPAY | END 2021-05-30 13:45 | disposition home or self-care (01) | LOC: WOUND 13:45 | PROVIDERS: PCP Nurse Practitioner; Visit Provider Nurse Practitioner Family | DX: I87.2 Venous insufficiency (chronic) (peripheral) (principal); L97.812 Non-pressure chronic ulcer of other part of right lower leg with fat layer exposed; L97.522 Non-pressure chronic ulcer of other part of left foot with fat layer exposed | CPT/HCPCS: 29581; A6252 ==

== ENCOUNTER 2021-06-03 13:03 | Outpatient (CLI) | payer MEDICARE, MEDICAID, SELFPAY | END 2021-06-03 13:04 | disposition home or self-care (01) | LOC: WOUND 13:04 | PROVIDERS: PCP Nurse Practitioner; Visit Provider Thoracic Surgery (Cardiothoracic Vascular Surgery) | DX: I87.2 Venous insufficiency (chronic) (peripheral) (principal); L97.812 Non-pressure chronic ulcer of other part of right lower leg with fat layer exposed; L97.822 Non-pressure chronic ulcer of other part of left lower leg with fat layer exposed | CPT/HCPCS: 11042; 11045 ==

== ENCOUNTER 2021-06-05 14:32 | Outpatient (CLI) | payer MEDICARE, MEDICAID, SELFPAY | END 2021-06-05 14:33 | disposition home or self-care (01) | LOC: WOUND 14:33 | PROVIDERS: PCP Nurse Practitioner; Visit Provider Nurse Practitioner Family | DX: I87.2 Venous insufficiency (chronic) (peripheral) (principal); L97.812 Non-pressure chronic ulcer of other part of right lower leg with fat layer exposed; L97.829 Non-pressure chronic ulcer of other part of left lower leg with unspecified severity | CPT/HCPCS: 29581; A6252 ==

== ENCOUNTER 2021-06-10 13:52 | Outpatient (CLI) | payer MEDICARE, MEDICAID, SELFPAY | END 2021-06-10 13:53 | disposition home or self-care (01) | PROVIDERS: PCP Nurse Practitioner; Visit Provider Nurse Practitioner Family | DX: I87.2 Venous insufficiency (chronic) (peripheral) (principal); L97.812 Non-pressure chronic ulcer of other part of right lower leg with fat layer exposed; L97.822 Non-pressure chronic ulcer of other part of left lower leg with fat layer exposed | CPT/HCPCS: 11042; 15271; A6250; A6252; Q4187 ==

== ENCOUNTER 2021-06-13 13:06 | Outpatient (CLI) | payer MEDICARE, MEDICAID, SELFPAY | END 2021-06-13 13:07 | disposition home or self-care (01) | LOC: WOUND 13:07 | PROVIDERS: PCP Nurse Practitioner; Visit Provider Nurse Practitioner Family | DX: I87.2 Venous insufficiency (chronic) (peripheral) (principal); L97.822 Non-pressure chronic ulcer of other part of left lower leg with fat layer exposed; L97.812 Non-pressure chronic ulcer of other part of right lower leg with fat layer exposed | CPT/HCPCS: 29581; A6252 ==

== ENCOUNTER 2021-06-17 13:43 | Outpatient (CLI) | payer MEDICARE, MEDICAID, SELFPAY | END 2021-06-17 13:44 | disposition home or self-care (01) | LOC: WOUND 13:44 | PROVIDERS: PCP Nurse Practitioner; Visit Provider Thoracic Surgery (Cardiothoracic Vascular Surgery) | DX: I87.2 Venous insufficiency (chronic) (peripheral) (principal); L97.812 Non-pressure chronic ulcer of other part of right lower leg with fat layer exposed; L97.822 Non-pressure chronic ulcer of other part of left lower leg with fat layer exposed | CPT/HCPCS: 15271; 97597; A6250; A6252; Q4187 ==

== ENCOUNTER 2021-06-24 14:24 | Outpatient (CLI) | payer MEDICARE, MEDICAID, SELFPAY | END 2021-06-24 14:25 | disposition home or self-care (01) | LOC: WOUND 14:25 | PROVIDERS: PCP Nurse Practitioner; Visit Provider Nurse Practitioner Family | DX: I87.2 Venous insufficiency (chronic) (peripheral) (principal); L97.812 Non-pressure chronic ulcer of other part of right lower leg with fat layer exposed; L97.822 Non-pressure chronic ulcer of other part of left lower leg with fat layer exposed | CPT/HCPCS: 11042 ==

== ENCOUNTER 2021-06-26 09:08 | Outpatient (CLI) | payer MEDICARE, MEDICAID, SELFPAY ==
--- NOTE | 2021-06-26 09:31 | USCV_ITS ---
Jaziel Willis Age: 50 Gender: M : 1970 Exam Date: 06/26/2021 09:28 Ordering Phys: Aman Lin MD (Andy) ([email or web address]) Technologist: Vaughn Nieto [place] [facility] [place]: ULCER RIGHT LEFT Brachial 139.00 mmHg Brachial 135.00 mmHg Pressure (mmHg) Waveform Pressure (mmHg) Waveform 180.00 Above Knee 140.00 161.00 Below Knee 131.00 160.00 AGENT PRODUCER 60.00 114.00 DPA 153.00 1.15 Ankle/Brachial Index 1.10 158.00 Pre-Exercise Toe Pressure 100.00 1.14 Pre-Exercise Toe/Brachial Index 0.72 FINDINGS Resting MARGA of 1.15 on the right side and 1.10 on the left Resting TBI of 1.14 on the right and 0.72 on the left CONCLUSIONS Normal resting ABIs and TBIs bilaterally No significant obstructive arterial disease, bilaterally based on the above findings Dr Luciana Whaley MD [facility] (Electronically Signed) Final Date: 26 June 2021 23:05 S
== END 2021-06-26 09:09 | disposition home or self-care (01) ==
LOC: RAD 09:13
PROVIDERS: PCP Nurse Practitioner; Visit Provider Thoracic Surgery (Cardiothoracic Vascular Surgery)
DX: I87.2 Venous insufficiency (chronic) (peripheral) (principal); L97.812 Non-pressure chronic ulcer of other part of right lower leg with fat layer exposed
CPT/HCPCS: 93923

== ENCOUNTER 2021-06-26 14:22 | Outpatient (CLI) | payer MEDICARE, MEDICAID, SELFPAY | END 2021-06-26 14:23 | disposition home or self-care (01) | LOC: WOUND 14:24 | PROVIDERS: PCP Nurse Practitioner; Visit Provider Thoracic Surgery (Cardiothoracic Vascular Surgery) | DX: I87.2 Venous insufficiency (chronic) (peripheral) (principal); L97.812 Non-pressure chronic ulcer of other part of right lower leg with fat layer exposed; L97.822 Non-pressure chronic ulcer of other part of left lower leg with fat layer exposed | CPT/HCPCS: 29581; 93923 ==

== ENCOUNTER 2021-07-01 10:26 | Outpatient (CLI) | payer MEDICARE, MEDICAID, SELFPAY | END 2021-07-01 10:27 | disposition home or self-care (01) | LOC: WOUND 10:27 | PROVIDERS: PCP Nurse Practitioner; Visit Provider Thoracic Surgery (Cardiothoracic Vascular Surgery) | DX: I87.2 Venous insufficiency (chronic) (peripheral) (principal); L97.812 Non-pressure chronic ulcer of other part of right lower leg with fat layer exposed; L97.822 Non-pressure chronic ulcer of other part of left lower leg with fat layer exposed | CPT/HCPCS: 11042; 11045; 97597; A6252 ==

== ENCOUNTER 2021-07-04 13:37 | Outpatient (CLI) | payer MEDICARE, MEDICAID, SELFPAY | END 2021-07-04 13:38 | disposition home or self-care (01) | LOC: WOUND 13:38 | PROVIDERS: PCP Nurse Practitioner; Visit Provider Surgery | DX: I87.2 Venous insufficiency (chronic) (peripheral) (principal); L97.812 Non-pressure chronic ulcer of other part of right lower leg with fat layer exposed; L97.522 Non-pressure chronic ulcer of other part of left foot with fat layer exposed | CPT/HCPCS: 29581; A6252 ==

== ENCOUNTER → 2021-07-07 12:52 | Outpatient (BNVA) | payer MEDICARE, MEDICAID, SELFPAY | PROVIDERS: PCP Nurse Practitioner; Visit Provider Specialist | DX: G40.301 Generalized idiopathic epilepsy and epileptic syndromes, not intractable, with status epilepticus (principal); F81.9 Developmental disorder of scholastic skills, unspecified; Z79.899 Other long term (current) drug therapy | CPT/HCPCS: 99214 ==

== ENCOUNTER 2021-07-08 10:35 | Outpatient (CLI) | payer MEDICARE, MEDICAID, SELFPAY | END 2021-07-08 10:36 | disposition home or self-care (01) | LOC: WOUND 10:36 | PROVIDERS: PCP Nurse Practitioner; Visit Provider Nurse Practitioner Family | DX: I87.2 Venous insufficiency (chronic) (peripheral) (principal); L97.812 Non-pressure chronic ulcer of other part of right lower leg with fat layer exposed; L97.822 Non-pressure chronic ulcer of other part of left lower leg with fat layer exposed | CPT/HCPCS: 11042; 11045; 29581; A6252 ==

== ENCOUNTER 2021-07-08 12:19 | Outpatient (CLI) | payer MEDICARE, MEDICAID, SELFPAY ==
[2021-07-08 13:39] LABS: Phenytoin Dilantin 11.6 ug/mL (10-20)
[2021-07-13 18:37] LABS: Levetiracetam Keppra 22.6 mcg/mL
== END 2021-07-08 12:20 | disposition home or self-care (01) ==
PROVIDERS: PCP Nurse Practitioner; Visit Provider Specialist
DX: G40.309 Generalized idiopathic epilepsy and epileptic syndromes, not intractable, without status epilepticus (principal)
CPT/HCPCS: 36415; 80177; 80185

== ENCOUNTER 2021-07-12 22:18 | Inpatient (IN) | payer MEDICARE, MEDICAID, SELFPAY ==
--- NOTE | 2021-07-12 22:24 | CTR_ITS ---
PROCEDURE INFORMATION: Exam: CT Head Without Contrast Exam date and time: 07/12/2021 10:24 PM Age: 50 years old Clinical indication: Condition or disease; Convulsions or seizures; Epilepsy; Severity not specified; Unspecified; Patient HX: PT stood up, fell backwards and started seizing - HX of seizures; Additional info: Fall then seizure TECHNIQUE: Imaging protocol: Computed tomography of the head without contrast. Radiation optimization: All CT scans at this facility use at least one of these dose optimization techniques: automated exposure control; mA and/or kV adjustment per patient size (includes targeted exams where dose is matched to clinical indication); or iterative reconstruction. COMPARISON: CT head wo con* [id number] 05/09/2021 9:10 PM RADIATION DOSE METRICS: Total DLP (mGy-cm): 1968.34 FINDINGS: Brain: No acute intracranial hemorrhage or mass effect. No definite acute infarct by CT. MRI could be more sensitive/specific for detection, as clinically directed. Cerebral ventricles: Ventricle size is normal for age. Paranasal sinuses: 15 mm retention cyst or polyp in the right maxillary sinus. Included paranasal sinuses otherwise appear essentially clear. Mastoid air cells: No significant acute finding. Vasculature: Vascular calcifications in the internal carotid arteries. Bones/joints: No definite acute skull fracture. CT/CT head wo con* [id number] IMPRESSION: 1. No acute intracranial hemorrhage or mass effect. 2. No definite acute infarct by CT, see above. 3. Other findings discussed above. 4. Some limitations due to artifact from patient motion. Radiation Dose CTDIVOL = (mGy): DLP = 1969.34 (mGy-cm)
--- NOTE | 2021-07-12 22:24 | ECG_ITS ---
[facility] Test Date: 2021-07-12 Pat Name: Jaziel Willis Department: Room: Gender: Male Aerodynamics Engineer: : 1970 Requested By: Tai Fuller Order Number: [id number] Ceballos MD: Delma Saldana M.D. Measurements Intervals [place] Rate: 89 P: 52 CA: 167 QRS: 44 QRSD: 107 T: 63 QT: 379 QTc: 463 Interpretive Statements SINUS RHYTHM Compared to ECG 05/09/2021 20:26:25 Sinus tachycardia no longer present Electronically Signed On 07-13-2021 13:12:49 SQL SERVER BI DEVELOPER by Delma Saldana M.D. [email or web address]
--- NOTE | 2021-07-12 22:27 | W.ED.SEIZURE ---
Documented by User: Tai Fuller DO 07/12/21 23:00 HPI - Seizure General: Chief Complaint: Seizure Stated Complaint: seizure Time Seen by Provider: 07/12/21 22:39 History of Present Illness: HPI Narrative: History is limited to that which we obtained via EMS. Allegedly the patient who has a known history of seizure disorder stood up and fell backwards onto the floor and then began having a seizure. The patient received 2 mg of Ativan prior to arrival. Apparently had another generalized tonic-clonic seizure at the time of arrival in the ambulance bay. No additional medication was given at that time. Patient has a history of MR as well. MD complaint: seizure Witnessed: Yes - by Bystander Seizure History: Yes Review of Systems General: Reports: ROS unobtainable due to medical condition PFS ED PFSH: Medical History Endotracheally intubated Essential hypertension Hypertension Intellectual disability Leukocytosis Morbid obesity Nonhealing nonsurgical wound Peripheral vascular disease Seizure Status epilepticus Venous stasis dermatitis Surgical History S/P vein stripping Family History Father Cancer Lung cancer Mother CAD (coronary artery disease) Other Diabetes Heart disease Hypertension Denies family history of Stroke Social History Second hand smoke exposure: No Smoking risk assessment/counseling performed?: No Alcohol intake: never Desire information about alcohol rehabilitation?: No Counseling given: No Desire information about substance/drug rehabilitation?: No Counseling given: No Caregiver/support person: Yes Lives independently: No Household members: family Marital status: Single service: No Current occupational status: disabled History of recent travel: No Current gender identity: Male Physical Exam Const: EXAM LIMITATIONS: altered mental status (Patient did not respond to verbal stimulus. Had spontaneous eye opening.) NUTRITIONAL APPEARANCE: overweight HENMT: COMMON NORMALS: normocephalic, atraumatic and Normal external nose present HEAD & SCALP: normal to inspection, normocephalic and atraumatic FACE & SINUS: normal facial exam NOSE: Normal external nose present MOUTH: Normal oral and palatal mucosa present (Some bleeding from tongue abrasion.) and tongue normal (Abrasions to tongue) Eye: COMMON NORMALS: Equal, round and reactive pupils present ALIGNMENT: Yes other (He is having horizontal nystagmus) PUPIL: Yes Equal, round and reactive pupils present Neck/C-Spine: COMMON NORMALS: full ROM, supple, no meningeal signs and Thyroid normal THYROID: Thyroid normal Chest: COMMONS NORMALS: normal inspection of the chest and normal palpation of entire chest wall Resp: COMMON NORMALS: normal respiratory effort, No use of accessory muscles and clear to auscultation bilaterally AUSCULTATION: clear to auscultation bilaterally Cardio: COMMON NORMALS: regular rate, regular rhythm and No murmurs present (Cardio) RATE: regular rate RHYTHM: regular rhythm GI: COMMON NORMALS: Soft to palpation, non-tender and no masses PALPATION: Yes Soft to palpation Back/Pelvis: COMMON NORMALS: thoracic and lumbar spine normal to inspection Extremity: COMMON NORMALS: normal to inspection, capillary refill normal, no clubbing, cyanosis or edema, no calf tenderness and no pedal edema RIGHT LOWER EXTREMITY: Yes lower leg (Compression hose) LEFT LOWER EXTREMITY: Yes lower leg (Compression hose noted) Neuro: COMMON NORMALS: deep tendon reflexes 2+ bilaterally SENSORIUM/ORIENTATION: Yes Orientation impaired (Patient is still postictal) MENINGEAL SIGNS: Yes no meningeal signs Skin: COMMON NORMALS: no rashes or lesions noted and no wounds GENERAL SKIN EXAM: no rashes or lesions noted Course Reevaluation(s): Reevaluation #1: Patient is noted to have another seizure while in the emergency department. He was given another dose of Ativan and Keppra was ordered. Time: 23:00 Reevaluation #2: Signed out to Dr Sierra for dispo. Case discussed. Vital Signs: Vital signs: Vital Signs Temperature 97.6 F 07/12/21 22:36 Pulse Rate 70 07/13/21 00:41 Respiratory Rate 16 07/13/21 00:41 Blood Pressure 102/87 07/13/21 00:41 Pulse Oximetry 97 07/13/21 00:41 MDM - Seizure Lab Data: Labs: Lab Results 07/12/21 07/12/21 07/12/21 22:27 22:27 23:18 WBC 14.5 10^3/uL H 10 ^3/uL (4.0-10.0) RBC 4.81 10^6/uL 10^6 /uL (4.1-5.3) Hgb 15.4 g/dL g/dL (11.7-16.6) Hct 45.3 % % (42.0-52.0) MCV 94.2 fl H fl (80-94) MCH 32.0 pg pg (28.0-34.0) MCHC 34.0 g/dL g/dL (30.0-36.0) RDW 14.9 % % (12.1-15.1) Plt Count 260 10^3/cmm 10^3 /cmm (130-400) MPV 10.0 fL fL (7.4-10.4) Neut % (Auto) 60.2 % % Lymph % (Auto) 25.9 % % [place] % (Auto) 8.2 % % Eos % (Auto) 4.1 % % Baso % (Auto) 0.6 % % Neut # (Auto) 8.74 10^3/uL H 10 ^3/uL (1.8-7.7) Lymph # (Auto) 3.8 10^3/uL 10^3/ uL (0.8-4.8) [place] # (Auto) 1.2 10^3/uL H 10^ 3/uL (0.2-0.9) Eos # (Auto) 0.6 10^3/uL 10^3/ uL (0.0-0.8) Baso # (Auto) 0.1 10^3/uL 10^3/ uL (0.0-0.1) Nucleated RBC % (a uto) 0 % % Nucleated RBCs # 0.0 /100WBC /100W BC Specimen Type Arterial Sample Site Radial, right ABG pH 7.41 (7.35-7.45) ABG pCO2 38.6 mmHg mmHg (35-45) ABG pO2 77.7 mmHg L mmHg (80.0-100.0) ABG HCO3 24.2 mmol/L mmol/ L (22-26) ABG Base Excess -0.4 mmol/L mmol/ L (-2.0-2.0) Ricardo Test Pos Hematocrit 44.2 % % (42-52) O2 Delivery Device None FiO2 21.0 % % Product Marketing Engineer ID [email or web address] Sodium 136 mmol/L mmol/L (136-145) Potassium 4.2 mmol/L mmol/L (3.5-5.1) Chloride 99 mmol/L mmol/L (98-107) Carbon Dioxide 24 mmol/L mmol/L (22-29) Anion Gap 17.2 (5-19) BUN 10 mg/dL mg/dL (6-20) Creatinine 0.7 mg/dL mg/dL (0.7-1.2) GFR Calculation 119.9 mL/min mL/m in (90-130) Glucose 104 mg/dL mg/dL (65-115) Calculated Osmolal ity 281 mOsm/kg L mOs m/kg (285-295) Calcium 9.0 mg/dL mg/dL (8.5-10.5) EKG Data^: EKG 1: Attestation: I personally reviewed and interpreted this EKG as follows: (EKG reveals a sinus rhythm of [address]-T wave changes noted. Normal intervals normal axis.) Discharge Plan Discharge Patient Disposition: Placed in Observation Clinical Impression: Status epilepticus Coding Level of Care Code ED Reliability Technician for Chg Fwd Exam Comprehensive Documented by User: Laci Sierra DO 07/13/21 02:48 HPI - Seizure General: Chief Complaint: Seizure Stated Complaint: seizure Time Seen by Provider: 07/12/21 22:39 [facility] ED PFSH: Medical History Endotracheally intubated Essential hypertension Hypertension Intellectual disability Leukocytosis Morbid obesity Nonhealing nonsurgical wound Peripheral vascular disease Seizure Status epilepticus Venous stasis dermatitis Surgical History S/P vein stripping Family History Father Cancer Lung cancer Mother CAD (coronary artery disease) Other Diabetes Heart disease Hypertension Denies family history of Stroke Social History Second hand smoke exposure: No Smoking risk assessment/counseling performed?: No Alcohol intake: never Desire information about alcohol rehabilitation?: No Counseling given: No Desire information about substance/drug rehabilitation?: No Counseling given: No Caregiver/support person: Yes Lives independently: No Household members: family Marital status: Single service: No Current occupational status: disabled History of recent travel: No Current gender identity: Male Course Consultations: Consultation #1: castillo Vital Signs: Vital signs: Vital Signs Temperature 97.6 F 07/12/21 22:36 Pulse Rate 70 07/13/21 00:41 Respiratory Rate 16 07/13/21 00:41 Blood Pressure 102/87 07/13/21 00:41 Pulse Oximetry 97 07/13/21 00:41 MDM - Seizure MDM Narrative: Medical decision making narrative: 50-year-old male checked out to me by Dr. Fuller at shift change. This gentleman presented basically in status epilepticus. He has had several small episodes of forced left lateral gaze, nystagmus, and twitching he has had a couple of episodes of short bouts of generalized tonic-clonic type movement. He was loaded with Keppra and given Ativan previously. Despite this he remained in status. He has been loaded with fosphenytoin and given more Ativan, and has currently experienced improvement without seizure for quite some time now. He is, though, very lethargic in his postictal state. He is making some purposeful movements at least now. He will need to be observed on seizure precautions in the ICU given his risk of relapse, and need for close observation Lab Data: Labs: Lab Results 07/12/21 07/12/21 07/12/21 22:27 22:27 23:18 WBC 14.5 10^3/uL H 10 ^3/uL (4.0-10.0) RBC 4.81 10^6/uL 10^6 /uL (4.1-5.3) Hgb 15.4 g/dL g/dL (11.7-16.6) Hct 45.3 % % (42.0-52.0) MCV 94.2 fl H fl (80-94) MCH 32.0 pg pg (28.0-34.0) MCHC 34.0 g/dL g/dL (30.0-36.0) RDW 14.9 % % (12.1-15.1) Plt Count 260 10^3/cmm 10^3 /cmm (130-400) MPV 10.0 fL fL (7.4-10.4) Neut % (Auto) 60.2 % % Lymph % (Auto) 25.9 % % [place] % (Auto) 8.2 % % Eos % (Auto) 4.1 % % Baso % (Auto) 0.6 % % Neut # (Auto) 8.74 10^3/uL H 10 ^3/uL (1.8-7.7) Lymph # (Auto) 3.8 10^3/uL 10^3/ uL (0.8-4.8) [place] # (Auto) 1.2 10^3/uL H 10^ 3/uL (0.2-0.9) Eos # (Auto) 0.6 10^3/uL 10^3/ uL (0.0-0.8) Baso # (Auto) 0.1 10^3/uL 10^3/ uL (0.0-0.1) Nucleated RBC % (a uto) 0 % % Nucleated RBCs # 0.0 /100WBC /100W BC Specimen Type Arterial Sample Site Radial, right ABG pH 7.41 (7.35-7.45) ABG pCO2 38.6 mmHg mmHg (35-45) ABG pO2 77.7 mmHg L mmHg (80.0-100.0) ABG HCO3 24.2 mmol/L mmol/ L (22-26) ABG Base Excess -0.4 mmol/L mmol/ L (-2.0-2.0) Ricardo Test Pos Hematocrit 44.2 % % (42-52) O2 Delivery Device None FiO2 21.0 % % Product Marketing Engineer ID [email or web address] Sodium 136 mmol/L mmol/L (136-145) Potassium 4.2 mmol/L mmol/L (3.5-5.1) Chloride 99 mmol/L mmol/L (98-107) Carbon Dioxide 24 mmol/L mmol/L (22-29) Anion Gap 17.2 (5-19) BUN 10 mg/dL mg/dL (6-20) Creatinine 0.7 mg/dL mg/dL (0.7-1.2) GFR Calculation 119.9 mL/min mL/m in (90-130) Glucose 104 mg/dL mg/dL (65-115) Calculated Osmolal ity 281 mOsm/kg L mOs m/kg (285-295) Calcium 9.0 mg/dL mg/dL (8.5-10.5) Discharge Plan Discharge Patient Disposition: Placed in Observation Clinical Impression: Status epilepticus Coding Level of Care Code ED Reliability Technician for Antonio Fwd Exam Comprehensive
[2021-07-12 22:36] VITALS: BP 116/90; PULSE 86; RESP 24; TEMP 36.4; O2SAT 96; BMI 38.9
[2021-07-12 22:41] LABS: Basophils # 0.1 10^3/uL (0.0-0.1); Basophils % 0.6 %; Eosinophils # 0.6 10^3/uL (0.0-0.8); Eosinophils % 4.1 %; Hematocrit 45.3 % (42.0-52.0); Hemoglobin 15.4 g/dL (11.7-16.6); Lymphocytes # 3.8 10^3/uL (0.8-4.8); Lymphocytes % 25.9 %; Mean Corpuscular Volume 94.2 fl (80-94); Monocytes # 1.2 10^3/uL (0.2-0.9); Monocytes % 8.2 %; Neutrophils # 8.74 10^3/uL (1.8-7.7); Neutrophils % 60.2 %; Nucleated Red Blood Cells % 0 %; Platelet Count 260 10^3/cmm (130-400); Red Blood Count 4.81 10^6/uL (4.1-5.3); Red Cell Distribution Width 14.9 % (12.1-15.1); White Blood Count 14.5 10^3/uL (4.0-10.0)
[2021-07-12] MEDS: LORazepam 2 mg/mL INJ 1 mL IVP ×2 (22:44)
[2021-07-12 22:58] LABS: Anion Gap 17.2 (5-19); Blood Urea Nitrogen 10 mg/dL (6-20); Carbon Dioxide 24 mmol/L (22-29); Chloride 99 mmol/L (98-107); Glomerular Filtration Rate 119.9 mL/min (90-130); Glucose 104 mg/dL (65-115); Osmolality Calculated 281 mOsm/kg (285-295); Potassium 4.2 mmol/L (3.5-5.1); Sodium 136 mmol/L (136-145)
[2021-07-12 23:51] LABS: ABG PCO2 38.6 mmHg (35-45); ABG PH Result 7.41 (7.35-7.45); Arterial Blood Gas Hematocrit 44.2 % (42-52); Base Excess ABG -0.4 mmol/L (-2.0-2.0); Blood Gas Allen Test Pos; Blood Gas Sample Site Radial, right; Blood Gas Sample Type Arterial; HCO3 ABG 24.2 mmol/L (22-26); PO2 ABG 77.7 mmHg (80.0-100.0)
[2021-07-13] VITALS (35 sets, daily range): BP systolic 93–131; BP diastolic 50–87; PULSE 52–80; RESP 12–23; TEMP 36.6–37.1; O2SAT 93–99; BMI 38.3
[2021-07-13] MEDS: LORazepam 2 mg/mL INJ 1 mL IVP (00:26)
--- NOTE | 2021-07-13 03:13 | P.HP_ITS ---
Providers/Chief Complaint Primary Care Provider: NIRANJAN Drummond Chief Complaint: seizure History of Present Illness Jaziel Willis is a 50 year old male with past medical history of MR, epilepsy, recurrent seizure activity, morbid obesity who is brought to emergency room due to a seizure episode. The history is collected from the patient's sister. According to her the seizure happened yesterday evening. The patient lost consciousness and control and fell forward onto his mother who was trying to support him. Both of them fell down but his mother protected him from getting injuries from the fall. It was a long tonic-clonic generalized seizure. In the emergency room while waiting the patient had another long episode. The patient received several doses of seizure medications but continued seizing. It lasted for several minutes. Eventually the seizures stopped. Currently the patient is heavily sedated and almost unresponsive. He received 1 dose of IV fosphenytoin, he received 1 dose of IV Keppra, he also received 4 or 5 doses of IV lorazepam. CT of the head did not reveal any acute abnormalities. According to the sister his previous seizure was 3 months ago. According to her he is compliant with id s medications. Phenytoin level several days ago was within normal range. However multiple measurements prior to that showed subtherapeutic levels. According to the sister the patient was at his baseline state of health prior to this event. No recent illness. No chills or fever, muscle weakness, sensory loss, chest pain, shortness of breath, cough, nausea or vomiting, urinary complaints, abdominal pain. Review of Systems General: Reports: 10 or more systems reviewed and unremarkable except in HPI and below Medications/Allergies Home Medications Medication Instructions Recorded Confirmed Last Taken Type Compression hose #1 ea 09/21/20 07/07/21 Unknown Rx Compression hose #1 ea 09/21/20 07/07/21 Unknown Rx trazodone 100 mg tablet 100 mg PO BEDTIME #30 tab 03/21/21 07/07/21 05/08/21 Rx calcium carbonate-vitamin D3 500 1 tab PO .2 times day #60 tab 05/14/21 07/07/21 Unknown Rx mg (1,250 mg)-600 unit tablet chlorhexidine gluconate 0.12 % 15 ml BUCCAL BID #473 ml 05/14/21 07/07/21 Unknown Rx mouthwash ferrous gluconate 324 mg (38 mg 324 mg PO DAILY #30 tab 05/14/21 07/07/21 Unknown Rx iron) tablet midazolam 5 mg/spray (0.1 mL) 1 spray INTRANASAL ONCE #1 ea 05/19/21 07/07/21 Unknown Rx nasal spray levetiracetam 1,000 mg tablet 1,500 mg PO BID #60 tab 07/07/21 07/07/21 Unknown Rx phenytoin 50 mg chewable tablet 200 mg PO Q8H #270 tab 07/07/21 07/07/21 Unknown Rx Allergies Allergy/AdvReac Type Severity Reaction Status Date / Time No Known Allergies Allergy Verified 07/07/21 13:22 PFSH Acute PFSH: Medical History Endotracheally intubated Essential hypertension Hypertension Intellectual disability Leukocytosis Morbid obesity Nonhealing nonsurgical wound Peripheral vascular disease Seizure Status epilepticus Venous stasis dermatitis Surgical History S/P vein stripping Family History Father Cancer Lung cancer Mother CAD (coronary artery disease) Other Diabetes Heart disease Hypertension Denies family history of Stroke Social History Second hand smoke exposure: No Smoking risk assessment/counseling performed?: No Alcohol intake: never Desire information about alcohol rehabilitation?: No Counseling given: No Desire information about substance/drug rehabilitation?: No Counseling given: No Caregiver/support person: Yes Lives independently: No Household members: family Marital status: Single service: No Current occupational status: disabled History of recent travel: No Current gender identity: Male Vitals/I&O/Wt Last Vital Signs Temp 97.6 F 07/12/21 22:36 Pulse 70 07/13/21 00:41 Resp 16 07/13/21 00:41 BP 102/87 07/13/21 00:41 Pulse Ox 97 07/13/21 00:41 07/12/21 07/12/21 07/13/21 14:59 22:59 06:59 Intake Total 110 / 110 Balance 110 / 110 Weight last 48 hrs Weight 145.15 kg Physical Exam Narrative: EXAM NARRATIVE: The patient is currently sedated and unresponsive. Occasionally he moves his arms and legs. No acute distress. Skin is warm and dry. Eyes PERRL, no nystagmus, no icterus or injection Moist mucous membranes Neck supple. No JVD Lungs are clear bilaterally. Abdomen is obese, soft, nontender, bowel sounds are present Extremities trace pedal edema. No cyanosis no calf tenderness bilaterally. Data : 07/12/21 22:27 07/12/21 22:27 A&P Assessment and plan (1) Status epilepticus: Status: Acute (2) Leukocytosis: Status: Acute Additional A&P Information 50-year-old male with past medical history of MR, seizure disorder who is being admitted for status epilepticus. The seizures stopped after multiple doses of seizure medications. Currently the patient seems to be stable. No respiratory compromise. Hemodynamically stable. Plan to ICU for observation. We will continue as needed lorazepam. We will resume his home medications when he wakes up. Seizure and fall precautions. Leukocytosis most likely secondary to seizures. No evidence of infection at this time. We will continue close monitoring. We will recheck his CBC. DVT prophylaxis. Teds and SCDs. No anticoagulation due to seizures and risk of promising bleeding. CODE STATUS. He is full code according to his sister. The plan of care was discussed with the patient's sister. She verbalized understanding and agreement. Attestations Medical Necessity Statement*: observation Coding Level of Care Code Acute Provider Relations Consultant for Chg Fwd Diagnoses Status epilepticus G40.901 Leukocytosis D72.829
[2021-07-13 04:05] LABS: Phenytoin Dilantin 12.3 ug/mL (10-20)
--- NOTE | 2021-07-13 05:01 | PC.NURSE ---
PO medication: Notified Dr. Lima, patient not alert or awake enough to take PO Dilantin, order given to reschedule it to 09:00.
[2021-07-13] MEDS: lactated ringers 1,000 ML 75 ML IV (05:29)
--- NOTE | 2021-07-13 08:30 | PC.NURSE ---
Pt nodded his head yes to understand to use urinal so a sample of urine could be sent to lab.
[2021-07-13] MEDS: phenytoin 50mg Chew Tablet 200 MG PO ×2 (09:52→17:19)
[2021-07-13] MEDS: levETIRAcetam 500 mg Tablet 1500 MG PO ×2 (09:52→17:48)
--- NOTE | 2021-07-13 10:30 | PC.NURSE ---
Returned mother's phone call. Pt still drowsy, doing well no seizures. Clarified home meds with her. She does not want to come in and upset him as he will want to go home with her.
--- NOTE | 2021-07-13 11:00 | PC.NURSE ---
NO urine noted. Pt nodded head yes to needing to urinate Urinal placed in position, no results. Wll continue to monitor.
--- NOTE | 2021-07-13 13:43 | PC.NURSE ---
Pt incontinent of urine, bed soaked. bed linen change and bathing provided. Perineal care provided to completely cleanse area, Ziplock back placed in brief to catch next urine. No Pediatric urine collection bags available at this time.
--- NOTE | 2021-07-13 14:30 | PC.NURSE ---
Pt incontinent of urine, just a smidgeon ended up in ziplock bag. Sent specimen to lab. Pericare provided, linen change provided.
[2021-07-13 14:53] LABS: Add Urine Microscopic? NO; Charge for UA Resulting for Rev
[2021-07-13 15:01] LABS: Bilirubin Urine Neg (Negative); Blood Urine Neg (Negative); Glucose Urine UA Norm (Normal); Ketones Urine Negative (Negative); Leukocyte Esterase Urine Negative (Negative); Nitrate Urine Negative (Negative); Protein Urine Neg (Negative); Specific Gravity, Urine 1.015 (1.005-1.030); Urine Appearance Clear (CLEAR); Urine Color Yellow (Yellow); Urobilinogen Urine Norm (Negative); pH Urine 6.5 (5-7)
--- NOTE | 2021-07-13 15:29 | PC.NURSE ---
Mom, Tiffanie, called for an update. Pt wking up, talking more and eating now. No seizures thus far. VSS.
--- NOTE | 2021-07-13 16:35 | PC.NURSE ---
Report faxed to [facility].
--- NOTE | 2021-07-13 16:44 | PC.NURSE ---
Report called to [facility] and given to YUKI Sy.
--- NOTE | 2021-07-13 17:02 | PC.NURSE ---
Pt transferred to room 270. Belongings with pt. Called mother, Tiffanie Willis, to notify, no answer, left message.
--- NOTE | 2021-07-13 17:07 | PC.NURSE ---
Shift Note: Pt just transferred to [facility]. Pt much more alert this afternoon. NO seizure activity noted this shift. Pt now eating without difficulty and drinking plenty of fluids. He is conversing. He has been incontinent of urine throughout this shift. Pt did not seem to understand the urinal concept. Pt up in a chair in room 270 at this time. Message left to notify mother. Frequent safety and comfort rounds continue. Orders and/or nursing care completed as indicated. Patient monitored for response to intervention and treatment(s). Education provided includes Plan of care, Ke[ppra, and Dilantin. Patient and/or event sales representative verbalized understanding. Pt probably just being agreeable as his level of understanding is diminished. . Will continue to monitor.
--- NOTE | 2021-07-13 18:55 | P.PN_ITS ---
Subjective Subjective: Interval history: Patient was seen and examined this morning, no episode of seizure today, tolerating diet well, currently resting comfortably in bed. Overnight H&P vitals labs have been reviewed. Medications: Reviewed: Yes Vitals/I&O/Wt Last Vital Signs Temp 97.9 F 07/13/21 13:00 Pulse 57 L 07/13/21 16:00 Resp 17 07/13/21 16:00 BP 112/57 07/13/21 16:00 Pulse Ox 97 07/13/21 16:00 07/13/21 07/13/21 07/13/21 06:59 14:59 22:59 Intake Total 240 / 240 1550 / 1550 983.167 / 2533.167 Balance 240 / 240 1550 / 1550 983.167 / 2533.167 Weight last 48 hrs Weight 142.972 kg Weight 145.15 kg Physical Exam Const: COMMON NORMALS: patient oriented x3 HENMT: COMMON NORMALS: normocephalic and atraumatic HEAD & SCALP: normocephalic and atraumatic Chest: CHEST: Yes Symmetrical chest wall rise Resp: COMMON NORMALS: clear to auscultation bilaterally AUSCULTATION: clear to auscultation bilaterally Cardio: COMMON NORMALS: regular rate, regular rhythm, S1 normal heart sound pr esent, S2 normal heart sound present, No gallops present (Cardio), No murmurs present (Cardio), No rub (Cardio) and Peripheral pulses 2+ throughout RATE: regular rate RHYTHM: regular rhythm HEART SOUNDS: S1 normal heart sound present and S2 normal heart sound present PERIPHERAL PULSES: Peripheral pulses 2+ throughout GI: COMMON NORMALS: Normal to inspection, nondistended, normoactive bowel sounds present, Soft to palpation, non-tender, No hepatosplenomegaly present and no masses AUSCULTATION: Yes normoactive bowel sounds PALPATION: Yes Soft to palpation and Yes No hepatosplenomegaly present RECTAL EXAM: Yes deferred Extremity: COMMON NORMALS: no clubbing, cyanosis or edema and no pedal edema Neuro: COMMON NORMALS: patient oriented x3 Data : 07/12/21 22:27 07/12/21 22:27 A&P Assessment and plan (1) Status epilepticus: 50-year-old male with past medical history of MR, seizure disorder who is being admitted for status epilepticus. Upon arrival in the ER he was loaded with fosphenytoin 1500 mg IV x1 dose, Keppra 1000 mg IV x1 dose. Was given Ativan 2 mg IV x3 doses. After that seizure had stopped. CT head without contrast: No acute intracranial pathology Continue Keppra 1500 mg I.V BID Continue phenytoin 200 mg p.o. q8h daily Seizure precaution Aspiration precaution Fall precaution Am xray chest: Monitor phenytoin level:12.3 Status: Acute (2) Leukocytosis: Likely reactive Follow am chest x-ray to rule out any aspiration We will avoid antibiotics for now. Status: Acute Additional A&P Information The seizures stopped after multiple doses of seizure medications. Currently the patient seems to be stable. No respiratory compromise. Hemodynamically stable. Plan to ICU for observation. We will continue as needed lorazepam. We will resume his home medications when he wakes up. Seizure and fall precautions. Leukocytosis most likely secondary to seizures. No evidence of infection at this time. We will continue close monitoring. We will recheck his CBC. DVT prophylaxis. Teds and SCDs. No anticoagulation due to seizures and risk of promising bleeding. CODE STATUS. He is full code according to his sister. The plan of care was discussed with the patient's sister. She verbalized understanding and agreement. Attestations Medical Necessity Statement*: Patient is to be in hospital for management of seizures. Coding Level of Care Code Acute Claims Configuration Analyst for Antonio Avila Diagnoses Status epilepticus G40.901 Leukocytosis D72.829
--- NOTE | 2021-07-13 23:13 | PC.NURSE ---
Pt was found in floor and he stated that he slipped from his recliner and bumped his head on a chair. Pt assisted to bed and bed alarm set. Dr and family notified. Q2 neuro checks started.
[2021-07-14] VITALS (8 sets, daily range): BP systolic 104–137; BP diastolic 67–89; PULSE 62–93; RESP 16–18; TEMP 36.6–37.2; O2SAT 94–97
[2021-07-14] MEDS: lactated ringers 1,000 ML 75 ML IV (00:35)
[2021-07-14] MEDS: phenytoin 50mg Chew Tablet 200 MG PO ×2 (00:36→09:26)
[2021-07-14 06:01] LABS: Basophils # 0.1 10^3/uL (0.0-0.1); Basophils % 0.4 %; Eosinophils # 0.4 10^3/uL (0.0-0.8); Eosinophils % 3.6 %; Hematocrit 43.3 % (42.0-52.0); Hemoglobin 14.8 g/dL (11.7-16.6); Lymphocytes # 3.2 10^3/uL (0.8-4.8); Lymphocytes % 26.7 %; Mean Corpuscular HGB Conc 34.2 g/dL (30.0-36.0); Mean Corpuscular Volume 93.7 fl (80-94); Monocytes % 8.7 %; Neutrophils % 59.8 %; Nucleated Red Blood Cells % 0 %; Platelet Count 214 10^3/cmm (130-400); Red Blood Count 4.62 10^6/uL (4.1-5.3); Red Cell Distribution Width 14.9 % (12.1-15.1); White Blood Count 11.9 10^3/uL (4.0-10.0)
[2021-07-14 06:22] LABS: Alanine Aminotransferase 10 U/L (0-41); Albumin Level 3.6 g/dL (3.5-5.2); Alkaline Phosphatase 95 IU/L (40-130); Anion Gap 12.6 (5-19); Aspartate Amino Transferase 16 U/L (0-40); Blood Urea Nitrogen 10 mg/dL (6-20); Calcium 8.3 mg/dL (8.5-10.5); Carbon Dioxide 26 mmol/L (22-29); Chloride 104 mmol/L (98-107); Glomerular Filtration Rate 143.2 mL/min (90-130); Glucose 82 mg/dL (65-115); Magnesium 2.4 mg/dL (1.7-2.3); Osmolality Calculated 286 mOsm/kg (285-295); Potassium 3.6 mmol/L (3.5-5.1); Sodium 139 mmol/L (136-145); Total Bilirubin 0.4 mg/dL (0.15-1.2); Total Protein 6.6 g/dL (6.6-8.7)
--- NOTE | 2021-07-14 07:00 | XR_ITS ---
WS: [id number] Exam: XR chest 1V portable [id number] Date/Time of Exam: 07/14/2021 6:26 AM Reason For Exam: s/p seizure, r/o possible aspiration PNA Comparison 05/09/2021. Findings: The lungs are clear and fully expanded. Costophrenic angles are sharp. No infiltrates. Bronchovascula r relief appears normal. Cardiac silhouette is unremarkable. Bony elements are intact. XR/XR chest 1V portable [id number] IMPRESSION: Unremarkable chest radiograph.
--- NOTE | 2021-07-14 09:50 | PC.CHAP ---
Pastoral Care Encounter/Spiritual Assessment Type of Contact [] Declined international broadcast music librarian visit [] Patient/Family/Request visit [] Outpatient visit [] Follow-up visit [] Physician referral [] Code/Alert [x] Routine visit [] Staff referral [] Actively dying x]x Patient sleeping [] Family support [] [] Out of room [] Palliative care [] [] Receiving care in room [] Pre-surgical visit [] Trauma [] Long length of stay [] ICU visit [] Other: Relational/Emotional Strength [] Patient feels connected with others/family/visitors/staff [] Distress [] Loneliness/isolation [] Abandonment Spirituality of Patient [] Person of [place]cee [] Attends Church of their [place]cee [] Believes in Prayer [] Reads Bible or Cheondoism materials [] There are Spiritual issues to be addressed Frame Bender Interventions [] Prayer [] Active listening [] Non-anxious presence [] Spiritual/emotional support [] Crisis/trauma care [] Spiritual counseling [] Bereavement support [] Provided bereavement packet [] Provided Bible/devotional materials [] Provided toy/stuffed animal, coloring book to patient or family member [] Provided Communion [] Anointing/[place] [] Salvation [] Completed spiritual assessment [] Other: Impact on Illness or Injury [] Angry [] Fearful [] Anxious [] Often cries [] Exhaustion [] Unable to work [] Unable to attend lutheran [] Unable to walk/stand [] Unable to read [] Unable to drive [] Unable to eat/drink [] Unable to sleep [] Unable to be with family [] Patient intubated [] Other: Summary Time spent with patient
--- NOTE | 2021-07-14 13:53 | P.DS_ITS ---
Discharge Providers Date of Admission: 07/13/21 16:52 Date of Discharge: July 14, 2021 Attending Provider at Admission: Nathan Lima Attending Provider at Discharge: Edwin Garibay MD Primary Care Provider: NIRANJAN Drummond Diagnoses at Discharge Discharge Diagnosis (1) Status epilepticus: Status: Acute (2) Leukocytosis: Status: Acute Reason for Visit Reason for Visit: seizure Hospital Course Hospital Course Jaziel Willis is a 50 year old male with past medical history of MR, epilepsy, recurrent seizure activity, morbid obesity who is brought to emergency room due to a seizure episode. In the emergency room patient was found to have status epilepticus received 1500 mg of phenytoin, 1000 g of Keppra, 3 doses of 2 mg IM Ativan, resulting in stoppage of seizure, CT of the head without any acute intracranial pathology. Patient was managed with his home Keppra, phenytoin as inpatient. He clinically did well, phenytoin level 12.3. No recurrent seizures, clinically at baseline, patient is currently undergoing the process for vagal nerve stimulator as outpatient. Will have patient follow-up with neurology and Dr. Lin as outpatient. Discharged home on his home Keppra, phenytoin, if he were to have any recurrent seizures, patient's mother was advised to bring him back to emergency room. Physical Exam Const: COMMON NORMALS: alert ORIENTATION/CONSCIOUSNESS: Yes awake and Yes oriented to person; not oriented to place and not oriented to time Cardio: COMMON NORMALS: regular rate, regular rhythm, S1 normal heart sound present and S2 normal heart sound present RATE: regular rate RHYTHM: regular rhythm HEART SOUNDS: S1 normal heart sound present and S2 normal heart sound present GI: COMMON NORMALS: Normal to inspection, nondistended, normoactive bowel sounds present, Soft to palpation and non-tender PALPATION: Yes Soft to palpation Extremity: COMMON NORMALS: no pedal edema Neuro: SENSORIUM/ORIENTATION: Yes alert, Yes oriented to person, No oriented to place and No oriented to time Discharge Data Data Completed and Pending: Completed Studies During Hospitalization Category Date Time Status CT head wo con* [id number] Urgent Cat Scan 07/12/21 22:24 Completed XR chest 1V jamel ble [id number] Routine Exams 07/14/21 07:00 Completed Labs from last 24 hours 07/14/21 07/14/21 07/13/21 05:07 05:07 14:30 WBC 11.9 H RBC 4.62 Hgb 14.8 Hct 43.3 MCV 93.7 MCH 32.0 MCHC 34.2 RDW 14.9 Plt Count 214 MPV 10.0 Neut % (Auto) 59.8 Lymph % (Auto) 26.7 [place] % (Auto) 8.7 Eos % (Auto) 3.6 Baso % (Auto) 0.4 Neut # (Auto) 7.10 Lymph # (Auto) 3.2 [place] # (Auto) 1.0 H Eos # (Auto) 0.4 Baso # (Auto) 0.1 Nucleated RBC % (a uto) 0 Nucleated RBCs # 0.0 Sodium 139 Potassium 3.6 Chloride 104 Carbon Dioxide 26 Anion Gap 12.6 BUN 10 Creatinine 0.6 L GFR Calculation 143.2 H Glucose 82 Calculated Osmolal ity 286 Calcium 8.3 L Magnesium 2.4 H Total Bilirubin 0.4 AST 16 ALT 10 Alkaline Phosphata se 95 Total Protein 6.6 Albumin 3.6 Globulin 3.0 Urine Color Yellow Urine Appearance Clear Urine pH 6.5 Ur Specific Gravit y 1.015 Urine Protein Neg Urine Glucose (UA) Norm Urine Ketones Negative Urine Blood Neg Urine Nitrate Negative Urine Bilirubin Neg Urine Urobilinogen Norm Ur Leukocyte [place] Negative Vitals: Last Vital Signs Temp 98.9 F 07/14/21 12:00 Pulse 76 07/14/21 12:00 Resp 18 07/14/21 12:00 BP 137/83 07/14/21 12:00 Pulse Ox 97 07/14/21 12:00 Discharge Plan Discharge Patient Disposition: Home Condition: Stable Prescriptions: Continued calcium carbonate-vitamin D3 [Os-Taiwo 500 + D3] 500mg (1,250mg) -600 unit tablet 1 tab PO .2 times day Qty: 60 RF: 5 ferrous gluconate 324 mg (38 mg iron) tablet 324 mg PO DAILY Qty: 30 RF: 2 chlorhexidine gluconate [Peridex] 0.12 % mouthwash 15 ml buccal BID Qty: 473 RF: 2 levetiracetam [Keppra] 1,000 mg tablet 1,500 mg PO BID Qty: 60 RF: 5 Dilantin Infatabs 50 mg tablet,chewable 200 mg PO Q8H Qty: 270 RF: 5 (DME) Compression hose 30/40 See Rx Instructions .Route .MEDSUPPLY Qty: 1 RF: 2 Nayzilam 5 mg/spray (0.1 mL) spray,non-aerosol 1 spray intranasal ONCE Qty: 1 RF: 0 trazodone 100 mg tablet 100 mg PO BEDTIME Qty: 30 RF: 5 (DME) Compression hose 18/30 See Rx Instructions RF: 0 Discharge Orders: Discharge Order (Routine); Ordered 07/14/21 Ordered By: Edwin Garibay Referrals: Amy Forrester MD [Physician] - 4-7 days (seizure) Candi Latif, [employer] [Primary Care Provider] - Kaya Thapa MD [Staff Physician] - Discharge Diet: Cardiac Discharge Activity: Resume usual activity Patient Instructions: Opioid Safety Activity Restrictions/Additional Instructions: -If you develop breakthrough seizures please go to the emergency room -Follow-up with primary care provider in 1 to 2 weeks -Follow-up with neurology Discharge Attestations Time Spent in Discharge Care*: less than 30 min Status at Discharge: Cognitive status at discharge: moderately impaired cognition , Behavioral status at discharge: cooperative , Quality Metrics Clinical Quality Measures During this hospital stay, did patient experience: None Coding Level of Care Code Acute Chg FW DC note Diagnoses Status epilepticus G40.901 Leukocytosis D72.829
== END 2021-07-14 14:55 | disposition home or self-care (01) | DRG 101 ==
LOC: ER 07-13 03:26 → ICU 07-13 04:40 → MEDSURG 07-13 16:52
PROVIDERS: Emergency Medicine; Admitting Provider Internal Medicine; Emergency Provider Emergency Medicine; PCP Nurse Practitioner; Visit Provider Family Medicine
DX: G40.401 Other generalized epilepsy and epileptic syndromes, not intractable, with status epilepticus (principal); I10 Essential (primary) hypertension; F79 Unspecified intellectual disabilities; E66.01 Morbid (severe) obesity due to excess calories; Z68.38 Body mass index [BMI] 38.0-38.9, adult; I73.9 Peripheral vascular disease, unspecified
CPT/HCPCS: 29581; 36415; 36600; 70450; 71045; 80048; 80053; 80185; 81003; 82803; 83735; 85025; 93005; 96365; 96367; 96375; 96376; 99285; G0378; J1953; J2060; Q2009

== ENCOUNTER 2021-07-15 10:33 | Outpatient (CLI) | payer MEDICARE, MEDICAID, SELFPAY | END 2021-07-15 10:34 | disposition home or self-care (01) | LOC: WOUND 10:36 | PROVIDERS: PCP Nurse Practitioner; Visit Provider Emergency Medicine | DX: I87.2 Venous insufficiency (chronic) (peripheral) (principal); L97.812 Non-pressure chronic ulcer of other part of right lower leg with fat layer exposed; L97.822 Non-pressure chronic ulcer of other part of left lower leg with fat layer exposed; I10 Essential (primary) hypertension | CPT/HCPCS: 11042; 11045; A6252 ==

== ENCOUNTER 2021-07-18 13:08 | Outpatient (CLI) | payer MEDICARE, MEDICAID, SELFPAY | END 2021-07-18 13:09 | disposition home or self-care (01) | LOC: WOUND 13:10 | PROVIDERS: PCP Nurse Practitioner; Visit Provider Surgery | DX: I87.2 Venous insufficiency (chronic) (peripheral) (principal); L97.812 Non-pressure chronic ulcer of other part of right lower leg with fat layer exposed; L97.522 Non-pressure chronic ulcer of other part of left foot with fat layer exposed | CPT/HCPCS: 29581; A6252 ==

== ENCOUNTER → 2021-07-21 10:56 | Outpatient (BNVA) | payer MEDICARE, MEDICAID, SELFPAY | PROVIDERS: PCP Nurse Practitioner; Visit Provider Nurse Practitioner | DX: D72.829 Elevated white blood cell count, unspecified (principal); K12.2 Cellulitis and abscess of mouth; E61.1 Iron deficiency; I10 Essential (primary) hypertension | CPT/HCPCS: 85025 ==

== ENCOUNTER 2021-07-22 10:20 | Outpatient (CLI) | payer MEDICARE, MEDICAID, SELFPAY | END 2021-07-22 10:21 | disposition home or self-care (01) | LOC: WOUND 10:22 | PROVIDERS: PCP Nurse Practitioner; Visit Provider Nurse Practitioner Family | DX: I87.2 Venous insufficiency (chronic) (peripheral) (principal); L97.812 Non-pressure chronic ulcer of other part of right lower leg with fat layer exposed; L97.822 Non-pressure chronic ulcer of other part of left lower leg with fat layer exposed; I10 Essential (primary) hypertension | CPT/HCPCS: 11042; A6252 ==

== ENCOUNTER 2021-07-29 09:48 | Outpatient (CLI) | payer MEDICARE, MEDICAID, SELFPAY | END 2021-07-29 09:49 | disposition home or self-care (01) | LOC: WOUND 09:53 | PROVIDERS: PCP Nurse Practitioner; Visit Provider Nurse Practitioner Family | DX: I87.2 Venous insufficiency (chronic) (peripheral) (principal); L97.812 Non-pressure chronic ulcer of other part of right lower leg with fat layer exposed; L97.822 Non-pressure chronic ulcer of other part of left lower leg with fat layer exposed; I10 Essential (primary) hypertension | CPT/HCPCS: 11042 ==

== ENCOUNTER 2021-07-29 15:25 | Outpatient (CLI) | payer MEDICARE, MEDICAID, SELFPAY ==
--- NOTE | 2021-08-02 11:55 | ONC FU_ITS ---
Dr. Coughlin Patient Follow-Up Note Patient: Jaziel Willis Unit #: [id number]: 1970 Dicatated By: Erik Coughlin M.D.Date of Visit:Jul 29, 2021 Onc Med Follow-up/Prog Note Chief Complaint: Leukocytosis. History of Present Illness: This is a 50 year-old man with persistent leukocytosis. He has mental retardation, and he has a history of a seizure disorder. He has been on mcc anticonvulsant therapy. His medical history is otherwise significant for chronic lower extremity venous insufficiency. He has had a long-standing, persistent leukocytosis. I had originally seen him for it in 2007 and then again in December 2014. His evaluation included a negative FISH study for BCR/abl. In addition, the JAK2 V617F mutation was not detected. I had just recommended expectant management. In January 2016 he was admitted to the hospital with intractable seizures. He was adequately managed with lorazepam, and during subsequent followup his seizures had remained well controlled. I had seen him again in April 2018. On review of his records in [facility], there were numerous CBCs which dated back to April 2005. With just one exception all of these showed some degree of elevation of the white blood cell count ranging from 10,900 to as high as 33,500. The majority were in the range of 10-16,000. The lone exception was a CBC on 01/11/2018 which showed a normal white blood cell count at 6600. At that time, interestingly, his platelet count was mildly decreased at 93,000. Otherwise, his platelet counts were consistently normal, and his hemoglobin/hematocrit levels were also consistently normal. The leukocytosis appeared to be reactive, though with no obvious underlying cause for it. At that point he was being followed at wound care clinic for an ulceration on his left leg associated with his chronic venous insufficiency. His white blood cell count remained just mildly elevated. His repeat clonal studies were again unrevealing, and he continued expectant management. On 07/13/2021 he was hospitalized with status epilepticus. His white blood cell count, as always, was mildly elevated. At discharge, it was recommended that he return here for a follow-up visit. He has been continuing treatment at wound care for his chronic venous stasis, and his legs have improved by keeping them wrapped. His overall clinical status has otherwise been stable. He has limited activity, but he is up and around. ECOG score is 2. Appetite has not been as good lately. Of our scale he has had significant weight loss. It is uncertain how much of that may be fluid related. He does not have fever or night sweats. He does not complain of shortness of breath. He tends to have cough at night and he occasionally has chest pain. He has no GI or complaints. He has no other joint or bone pain. He does not complain of headache or dizziness, and he has no focal neurologic symptoms. Medications: Aspirin 1 Tablet (of 81 mg) Oral daily, Furosemide 1 (20 mg) Tablet Oral b.i.d., Keppra 2 (750 mg) Tablet Oral b.i.d., LevETIRAcetam Tablet Oral, Metoprolol Tartrate 1 (50 mg) Tablet Oral daily, Tamsulosin HCl 1 Tablet (of 0.4 mg) Capsule Oral daily, TraZODone HCl 1 (100 mg) Tablet Oral at bedtime Allergies: No Known Allergies. Vital Signs: Performed on Jul 29, 2021 16:14 Height - 76.00 in Weight - 316.8 lbs (LOW) BSA - 2.69 sq.m BMI - 38.56 (HIGH) Temperature - 97.4 F (LOW) Pulse - 66 /min Respiration - 18 /min BP - 132/86 mm(hg) O2 Sat - 98 % Pain - 5 Fatigue - 7 Physical Examination: Constitutional - He does not appear acutely ill, Eyes - Sclerae nonicteric. Conjunctivae clear, ENMT - No lesions noted in the oral cavity, Hematologic/Lymphatic - No cervical, clavicular, or axillary adenopathy, Respiratory - Lungs are clear with good air movement bilaterally, Cardiovascular - Heart rhythm is regular. There is no murmur, gallop, or rub noted, Abdomen - Moderately distended. Liver and spleen are not enlarged. There is no abdominal mass or ascites noted and there is no inguinal adenopathy, Extremities - Chronic lower extremity edema, Neurologic - No focal neurologic deficits noted. Lab/Imaging: His CBC on 07/21/2021 showed hemoglobin 15.1 g with hematocrit 43.0%. Red cell indices were normal. The white blood cell count was slightly elevated at 12,300 with the differential showing 69% granulocytes, 23% lymphocytes, and 7% monocytes. The platelet count was normal at 229,000. Problem List: 1. Chronic, persistent leukocytosis, presumed to be reactive. 2. Chronic venous stasis of the lower extremities. He has had associated venous stasis skin ulcerations. 3. Mental retardation. 4. Seizure disorder. Problems Addressed with this Encounter and Plan: Patient with long duration of persistent leukocytosis, white blood cell counts varying from mildly to moderately elevated. This is presumed to be reactive, as it has not been progressive and he has had negative clonal studies on 2 occasions. In the absence of any evidence of a progressive increase in the white blood cell count or other changes in his CBC, he can continue expectant management. I will just plan to see him again as needed. Signed By: Erik Coughlin M.D. <<Signature on File>>
== END 2021-07-29 15:26 | disposition home or self-care (01) ==
LOC: ONCMED 15:28
PROVIDERS: PCP Nurse Practitioner; Visit Provider Internal Medicine Medical Oncology
DX: D72.829 Elevated white blood cell count, unspecified (principal); I87.8 Other specified disorders of veins; L97.929 Non-pressure chronic ulcer of unspecified part of left lower leg with unspecified severity; L97.919 Non-pressure chronic ulcer of unspecified part of right lower leg with unspecified severity; F79 Unspecified intellectual disabilities; G40.909 Epilepsy, unspecified, not intractable, without status epilepticus; Z79.899 Other long term (current) drug therapy
CPT/HCPCS: 99214

== ENCOUNTER 2021-08-05 10:00 | Outpatient (CLI) | payer MEDICARE, MEDICAID, SELFPAY | END 2021-08-05 10:01 | disposition home or self-care (01) | LOC: WOUND 10:01 | PROVIDERS: PCP Nurse Practitioner; Visit Provider Thoracic Surgery (Cardiothoracic Vascular Surgery) | DX: I87.2 Venous insufficiency (chronic) (peripheral) (principal); L97.812 Non-pressure chronic ulcer of other part of right lower leg with fat layer exposed; L97.822 Non-pressure chronic ulcer of other part of left lower leg with fat layer exposed | CPT/HCPCS: 97597 ==

== ENCOUNTER 2021-08-12 10:22 | Outpatient (CLI) | payer MEDICARE, MEDICAID, SELFPAY | END 2021-08-12 10:23 | disposition home or self-care (01) | LOC: WOUND 10:23 | PROVIDERS: PCP Nurse Practitioner; Visit Provider Thoracic Surgery (Cardiothoracic Vascular Surgery) | DX: I87.2 Venous insufficiency (chronic) (peripheral) (principal); L97.812 Non-pressure chronic ulcer of other part of right lower leg with fat layer exposed; L97.822 Non-pressure chronic ulcer of other part of left lower leg with fat layer exposed | CPT/HCPCS: 11042; 97597; A6252 ==

== ENCOUNTER 2021-08-19 10:31 | Outpatient (CLI) | payer MEDICARE, MEDICAID, SELFPAY | END 2021-08-19 10:32 | disposition home or self-care (01) | LOC: WOUND 10:31 | PROVIDERS: PCP Nurse Practitioner; Visit Provider Nurse Practitioner Family | DX: I87.2 Venous insufficiency (chronic) (peripheral) (principal); L97.812 Non-pressure chronic ulcer of other part of right lower leg with fat layer exposed; L97.822 Non-pressure chronic ulcer of other part of left lower leg with fat layer exposed | CPT/HCPCS: 11042; A6252 ==

== ENCOUNTER 2021-08-26 10:09 | Outpatient (CLI) | payer MEDICARE, MEDICAID, SELFPAY | END 2021-08-26 10:10 | disposition home or self-care (01) | LOC: WOUND 10:10 | PROVIDERS: PCP Nurse Practitioner; Visit Provider Nurse Practitioner Family | DX: I87.2 Venous insufficiency (chronic) (peripheral) (principal); L97.812 Non-pressure chronic ulcer of other part of right lower leg with fat layer exposed | CPT/HCPCS: 11042 ==

== ENCOUNTER 2021-09-01 13:25 | Outpatient (CLI) | payer MEDICARE, MEDICAID, SELFPAY | END 2021-09-01 13:26 | disposition home or self-care (01) | LOC: WOUND 13:27 | PROVIDERS: PCP Nurse Practitioner; Visit Provider Thoracic Surgery (Cardiothoracic Vascular Surgery) | DX: I96 Gangrene, not elsewhere classified (principal); I87.2 Venous insufficiency (chronic) (peripheral); L97.812 Non-pressure chronic ulcer of other part of right lower leg with fat layer exposed | CPT/HCPCS: 97597 ==

== ENCOUNTER 2021-09-08 10:22 | Outpatient (CLI) | payer MEDICARE, MEDICAID, SELFPAY | END 2021-09-08 10:23 | disposition home or self-care (01) | LOC: WOUND 10:24 | PROVIDERS: PCP Nurse Practitioner; Visit Provider Thoracic Surgery (Cardiothoracic Vascular Surgery) | DX: I87.2 Venous insufficiency (chronic) (peripheral) (principal); L97.812 Non-pressure chronic ulcer of other part of right lower leg with fat layer exposed; J86.9 Pyothorax without fistula; I10 Essential (primary) hypertension | CPT/HCPCS: 97597 ==

== ENCOUNTER 2021-09-15 15:12 | Outpatient (CLI) | payer MEDICARE, MEDICAID, SELFPAY | END 2021-09-15 15:13 | disposition home or self-care (01) | LOC: WOUND 15:13 | PROVIDERS: PCP Nurse Practitioner; Visit Provider Nurse Practitioner Family | DX: I87.2 Venous insufficiency (chronic) (peripheral) (principal); L97.812 Non-pressure chronic ulcer of other part of right lower leg with fat layer exposed; J86.9 Pyothorax without fistula; I89.0 Lymphedema, not elsewhere classified; I10 Essential (primary) hypertension | CPT/HCPCS: 11042 ==

== ENCOUNTER 2021-09-22 14:05 | Outpatient (CLI) | payer MEDICARE, MEDICAID, SELFPAY | END 2021-09-22 14:06 | disposition home or self-care (01) | LOC: WOUND 14:09 | PROVIDERS: PCP Nurse Practitioner; Visit Provider Thoracic Surgery (Cardiothoracic Vascular Surgery) | DX: I87.2 Venous insufficiency (chronic) (peripheral) (principal); L97.812 Non-pressure chronic ulcer of other part of right lower leg with fat layer exposed; J86.9 Pyothorax without fistula; I10 Essential (primary) hypertension; I89.0 Lymphedema, not elsewhere classified | CPT/HCPCS: 97597 ==

== ENCOUNTER 2021-09-29 14:00 | Outpatient (CLI) | payer MEDICARE, MEDICAID, SELFPAY | END 2021-09-29 14:01 | disposition home or self-care (01) | LOC: WOUND 14:01 | PROVIDERS: Visit Provider Nurse Practitioner Family | DX: I87.2 Venous insufficiency (chronic) (peripheral) (principal); L97.812 Non-pressure chronic ulcer of other part of right lower leg with fat layer exposed; J86.9 Pyothorax without fistula | CPT/HCPCS: 11042 ==

== ENCOUNTER 2021-10-06 10:46 | Outpatient (CLI) | payer MEDICARE, MEDICAID, SELFPAY | END 2021-10-06 10:47 | disposition home or self-care (01) | LOC: WOUND 10:49 | PROVIDERS: Visit Provider Thoracic Surgery (Cardiothoracic Vascular Surgery) | DX: I87.2 Venous insufficiency (chronic) (peripheral) (principal); L97.812 Non-pressure chronic ulcer of other part of right lower leg with fat layer exposed; L97.822 Non-pressure chronic ulcer of other part of left lower leg with fat layer exposed; J86.9 Pyothorax without fistula; I89.0 Lymphedema, not elsewhere classified | CPT/HCPCS: 97597 ==

== ENCOUNTER 2021-10-13 09:31 | Outpatient (CLI) | payer MEDICARE, MEDICAID, SELFPAY | END 2021-10-13 09:32 | disposition home or self-care (01) | LOC: WOUND 09:32 | PROVIDERS: Visit Provider Thoracic Surgery (Cardiothoracic Vascular Surgery) | DX: I87.2 Venous insufficiency (chronic) (peripheral) (principal); L97.812 Non-pressure chronic ulcer of other part of right lower leg with fat layer exposed; L97.822 Non-pressure chronic ulcer of other part of left lower leg with fat layer exposed; J86.9 Pyothorax without fistula | CPT/HCPCS: 97597 ==

== ENCOUNTER 2021-10-22 09:50 | Outpatient (CLI) | payer MEDICARE, MEDICAID, SELFPAY | END 2021-10-22 09:51 | disposition home or self-care (01) | LOC: WOUND 09:51 | PROVIDERS: Visit Provider Thoracic Surgery (Cardiothoracic Vascular Surgery) | DX: I87.2 Venous insufficiency (chronic) (peripheral) (principal); L97.812 Non-pressure chronic ulcer of other part of right lower leg with fat layer exposed; J86.9 Pyothorax without fistula | CPT/HCPCS: 97597 ==

== ENCOUNTER 2021-10-29 15:20 | Outpatient (CLI) | payer MEDICARE, MEDICAID, SELFPAY | END 2021-10-29 15:21 | disposition home or self-care (01) | LOC: WOUND 15:21 | PROVIDERS: Visit Provider Thoracic Surgery (Cardiothoracic Vascular Surgery) | DX: L97.812 Non-pressure chronic ulcer of other part of right lower leg with fat layer exposed (principal); L98.492 Non-pressure chronic ulcer of skin of other sites with fat layer exposed; I87.2 Venous insufficiency (chronic) (peripheral) | CPT/HCPCS: 99212 ==

== ENCOUNTER → 2021-11-19 10:12 | Outpatient (BNVA) | payer MEDICARE, MEDICAID, SELFPAY | PROVIDERS: Visit Provider Thoracic Surgery (Cardiothoracic Vascular Surgery) | DX: I87.2 Venous insufficiency (chronic) (peripheral) (principal); I96 Gangrene, not elsewhere classified; L97.812 Non-pressure chronic ulcer of other part of right lower leg with fat layer exposed | CPT/HCPCS: 97597 ==

== ENCOUNTER → 2021-11-21 09:48 | Outpatient (BNVA) | payer MEDICARE, MEDICAID, SELFPAY | PROVIDERS: Visit Provider Nurse Practitioner Family | DX: Z51.89 Encounter for other specified aftercare (principal) | CPT/HCPCS: 29581 ==

== ENCOUNTER → 2021-11-26 09:37 | Outpatient (BNVA) | payer MEDICARE, MEDICAID, SELFPAY | PROVIDERS: Visit Provider Thoracic Surgery (Cardiothoracic Vascular Surgery) | DX: I87.2 Venous insufficiency (chronic) (peripheral) (principal); I96 Gangrene, not elsewhere classified; L97.812 Non-pressure chronic ulcer of other part of right lower leg with fat layer exposed | CPT/HCPCS: 97597; A6252 ==

== ENCOUNTER 2021-11-30 14:38 | Emergency (ER) | payer MEDICARE, MEDICAID, SELFPAY ==
[2021-11-30] VITALS (9 sets, daily range): BP systolic 106–154; BP diastolic 64–95; PULSE 61–70; RESP 14–68; TEMP 36.2; O2SAT 96–100; BMI 33.9
--- NOTE | 2021-11-30 14:46 | ED_ITS ---
HPI - Seizure General: Chief Complaint: Seizure Stated Complaint: SEIZURE Time Seen by Provider: 11/30/21 14:45 Limitations: altered mental status History of Present Illness: HPI Narrative: Mr. Willis is a 51-year-old gentleman with, per chart review, chronic wounds, morbid obesity, seizure disorder who presents to the emergency department due to reported seizure activity at home. Upon arrival patient is only present in room and does not provide meaningful history. He initially would follow commands with regards to hand squeezing/finger wiggling however subsequently developed left gaze deviation and possible seizure. Supplemental history provided by patient's mother upon her presentation to bedside is that the patient typically has seizures generalized tonic-clonic every few months. He has not missed medications or had any significant changes in health recently. He is seizure seemed more staggering today and is re latively mild compared to other seizures. He has had a history of status epilepticus. Description of Episode: loss of consciousness and other Witnessed: Yes - by Bystander Trauma: No Seizure History: Yes Review of Systems General: Reports: ROS unobtainable due to mental status PFS ED PFSH: Medical History Endotracheally intubated Essential hypertension Hypertension Intellectual disability Leukocytosis Morbid obesity Nonhealing nonsurgical wound Peripheral vascular disease Seizure Status epilepticus Venous stasis dermatitis Surgical History S/P vein stripping Family History Father Cancer Lung cancer Mother CAD (coronary artery disease) Other Diabetes Heart disease Hypertension Denies family history of Stroke Social History Smoking and tobacco status: never smoked Second hand smoke exposure: No Smoking risk assessment/counseling performed?: No Alcohol intake: never Desire information about alcohol rehabilitation?: No Counseling given: No Desire information about substance/drug rehabilitation?: No Counseling given: No Caregiver/support person: Yes Lives independently: No Household members: family Marital status: Single service: No Current occupational status: disabled History of recent travel: No Current gender identity: Male Physical Exam Const: COMMON NORMALS: alert GENERAL APPEARANCE: ill appearing (Chronically) NUTRITIONAL APPEARANCE: obese HENMT: COMMON NORMALS: normocephalic and atraumatic HEAD & SCALP: normocephalic and atraumatic THROAT: posterior oropharynx normal Eye: COMMON NORMALS: conjunctivae normal CONJUNCTIVA: Yes conjunctivae normal SCLERA: sclerae normal Neck/C-Spine: COMMON NORMALS: supple GENERAL: Yes trachea midline Resp: COMMON NORMALS: normal respiratory effort EFFORT & INSPECTION: Yes able to speak in complete sentences Cardio: COMMON NORMALS: regular rate and regular rhythm RATE: regular rate RHYTHM: regular rhythm GI: COMMON NORMALS: Soft to palpation PALPATION: Yes Soft to palpation and No Tenderness to palpation present (GI) PERCUSSION: normal to percussion Extremity: GENERAL: Yes normal exam except as noted and No edema Neuro: COMMON NORMALS: moves all extremities SENSORIUM/ORIENTATION: Yes alert and Yes Orientation impaired Course ED course: - Patient was seen and evaluated by me at bedside - Patient placed on cardiac monitors, IV access obtained - Initial evaluation notable for exam as above, limited history secondary to either postictal state or baseline medical state. Shortly after my exam patient appears to have seizure activity with gaze deviation and shaking. Ativan ordered with improvement - Labs and xrays personally interpreted by me. EKG at 1501 and 1743 interpreted by me. Sinus rhythm with right bundle branch block. No STEMI. - Labs notable for mild leukocytosis, no acute electrolyte abnormality to explain symptoms. - Imaging notable for no lobar consolidation or pneumothorax. CT head without evidence of acute mass or hemorrhage. - Upon serial reexamination after treatment the patient was improved. Patient's mother reports that he is back to baseline. He is much more communicative and denies complaints. - Based on patient history, evaluation, and testing as interpreted the most likely cause of the patient's condition is seizure in the context of known seizure disorder - The results of ED evaluation were discussed with the patient including prescriptions and/or symptomatic cares (if applicable) including appropriate and responsible use, followup plan, and return precautions. The patient verbalized understanding and felt safe for discharge. - Patient discharged in satisfactory condition. Note: Click bubbles or prepopulated knight in note writing are used for assistance with data collection and billing and are inherently more limited than narrative and other text portions of this note. Please use narrative for additional clinical history and defer to narrative/free test for any case of contradictory information. If information appears in only free text or click bubble it should be considered present or absent as reported. Please contact note designer writer for clarifications of clinical information or contradictory information. MDM is a brief summary, contradictory or erroneous seeming information should be clarified and full note should be reviewed. Vital Signs: Vital signs: Vital Signs Temperature 97.1 F L 11/30/21 14:45 Pulse Rate 69 11/30/21 20:34 Respiratory Rate 20 H 11/30/21 20:34 Blood Pressure 154/69 11/30/21 20:34 Pulse Oximetry 98 11/30/21 18:59 MDM - Seizure MDM Narrative Medical decision making narrative: 51-year-old gentleman with history of seizure disorder presenting with seizure. Did have repeat seizure improved with Ativan. Returned to baseline. Satisfactory for discharge and outpatient follow-up Medical Records Attestation: I reviewed the patient's medical records. Lab Data Attestation: I reviewed the patient's lab results. Result diagrams: 11/30/21 14:55 11/30/21 14:55 Labs: Radiology Impressions Chest X-Ray 11/30/21 15:10 IMPRESSION: No acute findings. Head CT 11/30/21 15:10 IMPRESSION: No acute intracranial abnormality. Laboratory Results WBC 13.5 10^3/uL (4.0-10.0) H 11/30/21 14:55 RBC 4.29 10^6/uL (4.1-5.3) 11/30/21 14:55 Hgb 14.1 g/dL (11.7-16.6) 11/30/21 14:55 Hct 41.3 % (42.0-52.0) L 11/30/21 14:55 MCV 96.3 fl (80-94) H 11/30/21 14:55 MCH 32.9 pg (28.0-34.0) 11/30/21 14:55 MCHC 34.1 g/dL (30.0-36.0) 11/30/21 14:55 RDW 14.4 % (12.1-15.1) 11/30/21 14:55 Plt Count 242 10^3/cmm (130-400) 11/30/21 14:55 MPV 10.3 fL (7.4-10.4) 11/30/21 14:55 Neut % (Auto) 71.9 % 11/30/21 14:55 Lymph % (Auto) 17.5 % 11/30/21 14:55 [place] % (Auto) 7.7 % 11/30/21 14:55 Eos % (Auto) 1.8 % 11/30/21 14:55 Baso % (Auto) 0.5 % 11/30/21 14:55 Neut # (Auto) 9.66 10^3/uL (1.8-7.7) H 11/30/21 14:55 Lymph # (Auto) 2.4 10^3/uL (0.8-4.8) 11/30/21 14:55 [place] # (Auto) 1.0 10^3/uL (0.2-0.9) H 11/30/21 14:55 Eos # (Auto) 0.2 10^3/uL (0.0-0.8) 11/30/21 14:55 Baso # (Auto) 0.1 10^3/uL (0.0-0.1) 11/30/21 14:55 Nucleated RBC % (auto) 0 % 11/30/21 14:55 Nucleated RBCs # 0.0 /100WBC 11/30/21 14:55 Sodium 136 mmol/L (136-145) 11/30/21 14:55 Potassium 4.0 mmol/L (3.5-5.1) 11/30/21 14:55 Chloride 102 mmol/L (98-107) 11/30/21 14:55 Carbon Dioxide 23 mmol/L (22-29) 11/30/21 14:55 Anion Gap 15.0 (5-19) 11/30/21 14:55 BUN 12 mg/dL (6-20) 11/30/21 14:55 Creatinine 0.6 mg/dL (0.7-1.2) L 11/30/21 14:55 GFR Calculation 142.6 mL/min (90-130) H 11/30/21 14:55 Glucose 105 mg/dL (65-115) 11/30/21 14:55 Calculated Osmolality 282 mOsm/kg (285-295) L 11/30/21 14:55 Calcium 8.9 mg/dL (8.5-10.5) 11/30/21 14:55 Total Bilirubin 0.5 mg/dL (0.15-1.2) 11/30/21 14:55 AST 16 U/L (0-40) 11/30/21 14:55 ALT 11 U/L (0-41) 11/30/21 14:55 Alkaline Phosphatase 112 IU/L (40-130) 11/30/21 14:55 Troponin T Baseline 11 ng/L (0-15) 11/30/21 14:55 Troponin T 120 Minute 11.34 ng/L (0-15) 11/30/21 16:56 Delta Troponin T Not Reportable 11/30/21 16:56 NT-Pro-B Natriuret Pep 91 pg/mL (0-125) 11/30/21 14:55 Total Protein 6.5 g/dL (6.6-8.7) L 11/30/21 14:55 Albumin 4.3 g/dL (3.5-5.2) 11/30/21 14:55 Globulin 2.2 g/dL (1.3-4.6) 11/30/21 14:55 TSH 2.19 uIU/mL (0.27-4.20) 11/30/21 14:55 Phenytoin 11.3 ug/mL (10-20) 11/30/21 14:55 Levetiracetam 15.2 mcg/mL 11/30/21 14:55 Critical Care Time Critical Care Time: Critical Care Time: Yes Total Critical Care Time: 35 Attestation: Due to a high probability of clinically significant, possibly life threatening deterioration, the patient required my highest level of attention and preparedness to intervene emergently and I personally spent this critical care time directly and personally managing the patient. This critical care time inclu ded obtaining a history; examining the patient; pulse oximetry; ordering and review of laboratory and imaging studies; arranging urgent treatment with development of a management plan; evaluation of patient's response to treatment; frequent reassessment; and, discussions with other providers as applicable. It was exclusive of separately billable procedures. Primary system involved is neuro Discharge Plan Discharge Patient Disposition: Home Clinical Impression: Epileptic seizure Condition: Stable Prescriptions: No Action chlorhexidine gluconate [Peridex] 0.12 % mouthwash 15 ml buccal BID Qty: 473 2RF ferrous gluconate 324 mg (38 mg iron) tablet 324 mg PO DAILY Qty: 30 2RF (DME) Compression hose 30/40 See Rx Instructions .Route .MEDSUPPLY Qty: 1 2RF Rx Instructions: Measure to fit A6531 Dilantin Infatabs 50 mg tablet,chewable 200 mg PO Q8H Qty: 270 5RF trazodone 100 mg tablet 100 mg PO BEDTIME Qty: 30 5RF (DME) Compression hose 18/30 See Rx Instructions 0RF Rx Instructions: Measure for size A6530 Keppra 1,000 mg tablet 1,500 mg PO BID 0RF Os-Taiwo 500 + D3 500mg (1,250mg) -600 unit tablet 1 tab PO BID 0RF Discharge Orders: Discharge ED (Routine); Ordered 11/30/21 Ordered By: Pacheco Collier Discharge Diet: Usual diet Discharge Activity: Resume usual activity Patient Instructions: Epilepsy (ED) Activity Restrictions/Additional Instructions: Thank you for visiting the emergency department. You were seen and evaluated for seizure. Your seizure is likely caused by your underlying seizure disorder. Please continue to take your antiepileptics. Please follow-up with your neurologist. Please return to the emergency department for repeat seizure, any new neurologic symptoms, or anything else that you are concerned about and feel needs emergency department evaluation. Coding Level of Care Code ED Supervisor [place] for Antonio Avila
--- NOTE | 2021-11-30 15:10 | XRR_ITS ---
PROCEDURE INFORMATION: Exam: XR Chest Exam date and time: 11/30/2021 4:08 PM Age: 51 years old Clinical indication: Patient HX: Cough post seizure; Additional info: AMS TECHNIQUE: Imaging protocol: XR of the chest. Views: 1 view. COMPARISON: CR XR chest 1V portable [id number] 07/14/2021 7:22 AM FINDINGS: Lungs: Unremarkable. No consolidation. Pleural spaces: Unremarkable. No pleural effusion. No pneumothorax. Heart/Mediastinum: Unremarkable. No cardiomegaly. Bones/joints: Unremarkable. XR/XR chest 1V portable [id number] IMPRESSION: No acute findings.
--- NOTE | 2021-11-30 15:10 | ECG_ITS ---
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 Measurements Intervals [place] Rate: 68 P: 63 HI: 170 QRS: 56 QRSD: 138 T: 25 QT: 439 QTc: 469 Interpretive Statements SINUS RHYTHM RIGHT BUNDLE BRANCH BLOCK [120+ ms QRS DURATION, UPRIGHT V1, 40+ ms S IN I/aVL/V4/V5/V6] Compared to ECG 07/12/2021 22:25:21 Right bundle-branch block now present Electronically Signed On 12-01-2021 15:28:11 CDT by Gabriel Perkins M.D. [id number]
--- NOTE | 2021-11-30 15:10 | CTR_ITS ---
PROCEDURE INFORMATION: Exam: CT Head Without Contrast Exam date and time: 11/30/2021 4:05 PM Age: 51 years old Clinical indication: Altered mental status/memory loss; Confusion or disorientation; Patient HX: AMS post seizure w HX of seizures TECHNIQUE: Imaging protocol: Computed tomography of the head without contrast. Radiation optimization: All CT scans at this facility use at least one of these dose optimization techniques: automated exposure control; mA and/or kV adjustment per patient size (includes targeted exams where dose is matched to clinical indication); or iterative reconstruction. COMPARISON: CT head wo con* [id number] 07/12/2021 10:48 PM RADIATION DOSE METRICS: Total DLP (mGy-cm): 909.69 FINDINGS: Brain: No hemorrhage. No edema. Mild diffuse cerebral atrophy. No significant white matter disease. No mass effect. Cerebral ventricles: No ventriculomegaly. Paranasal sinuses: Visualized sinuses are unremarkable. No fluid levels. Mastoid air cells: Visualized mastoid air cells are well aerated. Bones/joints: Unremarkable. No acute fracture. Soft tissues: Unremarkable. CT/CT head wo con* [id number] IMPRESSION: No acute intracranial abnormality.
[2021-11-30] MEDS: LORazepam 2 mg/mL INJ 1 mL IVP (15:15)
--- NOTE | 2021-11-30 15:21 | PC.NURSE ---
report from Catherine
[2021-11-30 15:24] LABS: Basophils # 0.1 10^3/uL (0.0-0.1); Basophils % 0.5 %; Eosinophils # 0.2 10^3/uL (0.0-0.8); Eosinophils % 1.8 %; Hematocrit 41.3 % (42.0-52.0); Hemoglobin 14.1 g/dL (11.7-16.6); Lymphocytes # 2.4 10^3/uL (0.8-4.8); Lymphocytes % 17.5 %; Mean Corpuscular HGB Conc 34.1 g/dL (30.0-36.0); Mean Corpuscular Hemoglobin 32.9 pg (28.0-34.0); Mean Corpuscular Volume 96.3 fl (80-94); Mean Platelet Volume 10.3 fL (7.4-10.4); Monocytes % 7.7 %; Neutrophils # 9.66 10^3/uL (1.8-7.7); Neutrophils % 71.9 %; Nucleated Red Blood Cells % 0 %; Platelet Count 242 10^3/cmm (130-400); Red Blood Count 4.29 10^6/uL (4.1-5.3); Red Cell Distribution Width 14.4 % (12.1-15.1); White Blood Count 13.5 10^3/uL (4.0-10.0)
[2021-11-30 15:44] LABS: Troponin(5th) Baseline 11 ng/L (0-15)
[2021-11-30 15:50] LABS: Phenytoin Dilantin 11.3 ug/mL (10-20)
[2021-11-30 15:52] LABS: Alanine Aminotransferase 11 U/L (0-41); Albumin Level 4.3 g/dL (3.5-5.2); Alkaline Phosphatase 112 IU/L (40-130); Aspartate Amino Transferase 16 U/L (0-40); Blood Urea Nitrogen 12 mg/dL (6-20); Calcium 8.9 mg/dL (8.5-10.5); Carbon Dioxide 23 mmol/L (22-29); Chloride 102 mmol/L (98-107); Creatinine Clr Calc Pharmacy 191.4983; Globulin 2.2 g/dL (1.3-4.6); Glomerular Filtration Rate 142.6 mL/min (90-130); Glucose 105 mg/dL (65-115); NT Pro B Type Natriuretic Pept 91 pg/mL (0-125); Osmolality Calculated 282 mOsm/kg (285-295); Sodium 136 mmol/L (136-145); Thyroid Stimulating Hormone 2.19 uIU/mL (0.27-4.20); Total Bilirubin 0.5 mg/dL (0.15-1.2); Total Protein 6.5 g/dL (6.6-8.7)
--- NOTE | 2021-11-30 17:10 | ECG_ITS ---
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 Measurements Intervals [place] Rate: 65 P: 47 [place]: 177 QRS: 48 QRSD: 139 T: 15 QT: 448 QTc: 466 Interpretive Statements SINUS RHYTHM WITH SINUS ARRHYTHMIA RIGHT BUNDLE BRANCH BLOCK [120+ ms QRS DURATION, UPRIGHT V1, 40+ ms S IN I/aVL/V4/V5/V6] Compared to ECG 11/30/2021 15:01:38 No significant changes Electronically Signed On 12-02-2021 9:21:43 CDT by Gabriel Perkins M.D. [id number]
[2021-11-30 17:31] LABS: Troponin 5 2HR 11.34 ng/L (0-15)
--- NOTE | 2021-11-30 18:26 | PC.NURSE ---
pt straight cath a drop came out
--- NOTE | 2021-11-30 19:06 | PC.NURSE ---
pt's mother states that he is back to normal and is ready to go home, notified
[2021-11-30] MEDS: phenytoin 50mg Chew Tablet 200 MG PO (20:17)
[2021-11-30] MEDS: tetanus-dipt-pertussis 0.5 mL SDV IM (20:18)
[2021-12-05 16:31] LABS: Levetiracetam Keppra 15.2 mcg/mL
== END 2021-11-30 20:44 | disposition home or self-care (01) ==
PROVIDERS: Emergency Provider Emergency Medicine; PCP Nurse Practitioner
DX: G40.909 Epilepsy, unspecified, not intractable, without status epilepticus (principal); I10 Essential (primary) hypertension; E66.01 Morbid (severe) obesity due to excess calories; Z68.33 Body mass index [BMI] 33.0-33.9, adult; F79 Unspecified intellectual disabilities; Z23 Encounter for immunization
CPT/HCPCS: 70450; 71045; 80053; 80177; 80185; 83880; 84443; 84484; 85025; 90471; 90715; 93005; 96374; 99284; J2060

== ENCOUNTER → 2021-12-03 09:26 | Outpatient (BNVA) | payer MEDICARE, MEDICAID, SELFPAY | PROVIDERS: PCP Nurse Practitioner; Visit Provider Thoracic Surgery (Cardiothoracic Vascular Surgery) | DX: I87.2 Venous insufficiency (chronic) (peripheral) (principal); I96 Gangrene, not elsewhere classified; L97.812 Non-pressure chronic ulcer of other part of right lower leg with fat layer exposed | CPT/HCPCS: 29581; 97597 ==

== ENCOUNTER → 2021-12-10 09:34 | Outpatient (BNVA) | payer MEDICARE, MEDICAID, SELFPAY | PROVIDERS: PCP Nurse Practitioner; Visit Provider Thoracic Surgery (Cardiothoracic Vascular Surgery) | DX: I87.2 Venous insufficiency (chronic) (peripheral) (principal); I96 Gangrene, not elsewhere classified; L97.812 Non-pressure chronic ulcer of other part of right lower leg with fat layer exposed | CPT/HCPCS: 97597; A6252 ==

== ENCOUNTER → 2021-12-17 09:20 | Outpatient (BNVA) | payer MEDICARE, MEDICAID, SELFPAY | PROVIDERS: PCP Nurse Practitioner; Visit Provider Nurse Practitioner Family | DX: I87.2 Venous insufficiency (chronic) (peripheral) (principal); L97.912 Non-pressure chronic ulcer of unspecified part of right lower leg with fat layer exposed; I96 Gangrene, not elsewhere classified | CPT/HCPCS: 11042 ==

== ENCOUNTER → 2021-12-24 09:22 | Outpatient (BNVA) | payer MEDICARE, MEDICAID, SELFPAY | PROVIDERS: PCP Nurse Practitioner; Visit Provider Thoracic Surgery (Cardiothoracic Vascular Surgery) | DX: I87.2 Venous insufficiency (chronic) (peripheral) (principal); L97.812 Non-pressure chronic ulcer of other part of right lower leg with fat layer exposed; I96 Gangrene, not elsewhere classified | CPT/HCPCS: 29581 ==

== ENCOUNTER → 2021-12-31 09:25 | Outpatient (BNVA) | payer MEDICARE, MEDICAID, SELFPAY | PROVIDERS: PCP Nurse Practitioner; Visit Provider Thoracic Surgery (Cardiothoracic Vascular Surgery) | DX: Z09 Encounter for follow-up examination after completed treatment for conditions other than malignant neoplasm (principal) | CPT/HCPCS: 99212 ==

== ENCOUNTER → 2022-01-07 09:23 | Outpatient (BNVA) | payer MEDICARE, MEDICAID, SELFPAY | PROVIDERS: PCP Nurse Practitioner; Visit Provider Thoracic Surgery (Cardiothoracic Vascular Surgery) | DX: Z09 Encounter for follow-up examination after completed treatment for conditions other than malignant neoplasm (principal); I87.2 Venous insufficiency (chronic) (peripheral) | CPT/HCPCS: 99212; A6212 ==

== ENCOUNTER → 2022-01-14 14:22 | Outpatient (BNVA) | payer MEDICARE, MEDICAID, SELFPAY | PROVIDERS: PCP Nurse Practitioner; Visit Provider Thoracic Surgery (Cardiothoracic Vascular Surgery) | DX: L89.892 Pressure ulcer of other site, stage 2 (principal); L89.891 Pressure ulcer of other site, stage 1 | CPT/HCPCS: 97597 ==

== ENCOUNTER → 2022-01-21 13:54 | Outpatient (BNVA) | payer MEDICARE, MEDICAID, SELFPAY | PROVIDERS: PCP Nurse Practitioner; Visit Provider Nurse Practitioner Family | DX: L89.892 Pressure ulcer of other site, stage 2 (principal); L89.891 Pressure ulcer of other site, stage 1 | CPT/HCPCS: 11042 ==

== ENCOUNTER 2022-01-22 16:48 | Emergency (ER) | payer MEDICARE, MEDICAID, SELFPAY ==
[2022-01-22] VITALS (16 sets, daily range): BP systolic 82–138; BP diastolic 57–73; PULSE 50–96; RESP 12–29; O2SAT 95–100; BMI 40.6
--- NOTE | 2022-01-22 17:06 | PC.NURSE ---
EMS STATES PATIENT TAKES DILANTIN AND KEPPRA DAILY- ATE A NOON MEAL- SITTING ON BED LOOKING AT A TABLET WHEN SEIZURE STARTED- EMS ARRIVED WITH PATIENT SEIZING- rn'S STARTED 20 IN RIGHT ac AND 20 IN LEFT UPPER ARM, 150 PROPOFOL IVP GIVEN, 500 MG KEPPRA IVP, 2 MG ATIVAN IVP, PATIENT STILL SEIZING- 132/67, 86 HR, 94% ON RA, 36 RR, 100 MG PROPOFOL IVP, VERCURONIUM 10 MG IVP - ALL MEDS PUSHED BY ALIVIA RN, 124/97- 8200- PATIENT INTUBATED WITH AN 8.O ETT, 24 AT THE LIPS
--- NOTE | 2022-01-22 17:08 | XRR_ITS ---
PROCEDURE INFORMATION: Exam: XR Chest Exam date and time: 01/22/2022 5:19 PM Age: 51 years old Clinical indication: Device placement; Ett placement (vent status); Additional info: Post-intubation TECHNIQUE: Imaging protocol: XR of the chest. Views: 1 view. COMPARISON: CR XR chest 1V portable [id number] 11/30/2021 4:08 PM FINDINGS: Tubes, catheters and devices: Endotracheal tube in place 3 cm above the jim. Lungs: Unremarkable. No consolidation. Pleural spaces: Unremarkable. No pleural effusion. No pneumothorax. Heart/Mediastinum: Unremarkable. No cardiomegaly. Bones/joints: Unremarkable. XR/XR chest 1V portable [id number] IMPRESSION: Endotracheal tube in proper positioning.
--- NOTE | 2022-01-22 17:09 | CTR_ITS ---
PROCEDURE INFORMATION: Exam: CT Head Without Contrast Exam date and time: 01/22/2022 6:12 PM Age: 51 years old Clinical indication: Condition or disease; Convulsions or seizures; Epilepsy; Severity not specified; Additional info: Status ep TECHNIQUE: Imaging protocol: Computed tomography of the head without contrast. Radiation optimization: All CT scans at this facility use at least one of these dose optimization techniques: automated exposure control; mA and/or kV adjustment per patient size (includes targeted exams where dose is matched to clinical indication); or iterative reconstruction. COMPARISON: CT head wo con* [id number] 11/30/2021 4:05 PM RADIATION DOSE METRICS: Total DLP (mGy-cm): 2153.8 FINDINGS: Brain: Mild atrophy and mild white matter chronic microvascular changes are noted. No hemorrhage or evidence of acute infarction. No mass effect or midline shift. Cerebral ventricles: No ventriculomegaly. Paranasal sinuses: Mild sinusitis changes are appreciated. Mastoid air cells: Visualized mastoid air cells are well aerated. Bones/joints: Unremarkable. No acute fracture. Soft tissues: Unremarkable. CT/CT head wo con* [id number] IMPRESSION: No acute intracranial abnormality. Mild sinusitis.
--- NOTE | 2022-01-22 17:09 | ECG_ITS ---
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 Measurements Intervals [place] Rate: 89 P: 75 [place]: 191 QRS: 69 QRSD: 132 T: 45 QT: 354 QTc: 431 Interpretive Statements SINUS RHYTHM INDETERMINATE AXIS RIGHT BUNDLE BRANCH BLOCK [120+ ms QRS DURATION, UPRIGHT V1, 40+ ms S IN I/aVL/V4/V5/V6] Compared to ECG 11/30/2021 17:43:45 Indeterminate axis now present Sinus arrhythmia no longer present Electronically Signed On 01-22-2022 22:24:28 CDT by Mandeep Chen M.D. [email or web address] [facility].Neptune/store/NU/[id number] f
--- NOTE | 2022-01-22 17:17 | W.ED.GENADLT ---
HPI - General Adult General: Chief complaint: Seizure Stated complaint: ACTIVELY SEIZING Time Seen by Provider: 01/22/22 17:06 History of Present Illness: Patient is a 51-year-old male with a history of chronic wounds, morbid obesity, seizure disorder on phenytoin who presents the emergency room active seizure. Per EMS, patient was seizing in the field since 4 PM. Patient has had intermittent breaks and seizure. EMS could not establish IV have given patient 2 mg IM midazolam. Fingerstick within normal limit. Patient continues to be an active seizure for more than 15 minutes. Rest of history limited on arrival given critical condition. Onset:4pm Duration:ognoing Location:home Severity:severe Review of Systems General: Reports: ROS unobtainable due to mental status PFSH ED PFSH: Medical History Endotracheally intubated Essential hypertension Hypertension Intellectual disability Leukocytosis Morbid obesity Nonhealing nonsurgical wound Peripheral vascular disease Seizure Status epilepticus Venous stasis dermatitis Surgical History S/P vein stripping Family History Father Cancer Lung cancer Mother CAD (coronary artery disease) Other Diabetes Heart disease Hypertension Denies family history of Stroke Social History Smoking and tobacco status: never smoked Second hand smoke exposure: No Smoking risk assessment/counseling performed?: No Alcohol intake: never Desire information about alcohol rehabilitation?: No Counseling given: No Desire information about substance/drug rehabilitation?: No Counseling given: No Caregiver/support person: Yes Lives independently: No Household members: family Marital status: Single service: No Current occupational status: disabled History of recent travel: No Current gender identity: Male Physical Exam HENMT: COMMON NORMALS: atraumatic HEAD & SCALP: atraumatic MOUTH: moist mucous membranes abnormal and other (mouth gapping) Eye: COMMON NORMALS: conjunctivae normal CONJUNCTIVA: Yes conjunctivae normal OTHER: no occular reflexes b/l, eyes wide open Neck/C-Spine: OTHER: +unable to asess due to active seizure Resp: OTHER: + increased respiratory effort Cardio: RATE: tachycardic GI: COMMON NORMALS: Soft to palpation PALPATION: Yes Soft to palpation OTHER: Patient actively tensing during seizure Extremity: NARRATIVE EXTREMITY EXAM: All extremities are tense during seizure Neuro: SENSORIUM/ORIENTATION: Yes stuporous (+ Unresponsive/actively seizing) Psych: OTHER: + Unable to assess given underlying seizure Procedures Central Line Placement Left Femoral: Time Out Performed: Yes Patient Placed on Monitor/Pulse Ox: Yes MD Prep: mask, gown and gloves Central Line Prep: Povidone-Iodine 1%, Chlorhexidine scrub and sterile drapes applied Ultrasound Used for Placement: Yes Central Line Lumen Inserted: triple Post Procedure: sutured in place, good blood return, all ports aspirated, flushed, capped and sterile dressing applied Patient Tolerated Procedure: well Complications: none Intubation Time out performed: Yes sedative: Fentanyl Mg Given: 150 paralytic: Vecuronium Mg Given: 10 Laryngoscope: Kevin ET Tube Size: 8 ET Tube Uncuffed: No Tube Secured Depth (cm): 24 Tube Secured Location: lips Tube Placement Confirmation: visualized tube passing through cords, equal breath sounds bilaterally, no breath sounds over epigastrium and confirmation by capnometry Patient Tolerated Procedure: well Intubation Complications: none Lumbar Puncture Time Out Performed: Yes Patient Position: right lateral decubitus Skin Prep: Povidone-Iodine 1% Spinal Needle Gauge: 22G Interspace Used: L4-L5 Complications: unable to obtain CSF Additional Comments: A time-out was performed. My hands were washed immediately prior to the procedure. I wore a surgical cap, mask with protective eyewear, sterile gown and sterile gloves throughout the procedure. The patient was placed in the R position with help from the nursing staff. The area was cleansed and draped in usual sterile fashion using betadine scrub. Anesthesia was achieved with 1% lidocaine. A 20-gauge 3.5-inch spinal needle was placed in the L4-L5 lumbar interspace. We were unable to obtain any CSF after 5 attempts. The patient had no immediate complications and tolerated the procedure well. Estimated blood loss was 0. Course Vital Signs: Vital signs: Vital Signs Pulse Rate 55 L 01/22/22 22:00 Respiratory Rate 19 H 01/22/22 21:00 Blood Pressure 104/60 01/22/22 22:00 Pulse Oximetry 95 01/22/22 22:00 MDM - General Adult Medical Decision Making 51-year-old male with history of epileptic seizure, more than obesity, chronic wound presents to the emergency room with concerns for ongoing seizure. On arrival, patient is in status epilepticus. Initial, we requested for Ativan and Keppra however there was delay in getting the medication from pharmacy. Given ongoing seizure for more than 4 minutes, decision was made to give a bolus of propofol. Patient received 100 mcgof propofol with improvement in seizure. Patient then received 2 mg Ativan and 1 g of Keppra from pharmacy. However shortly while posticteral patient had another episode of seizure, at which point time, decision was made to perform intubation for concern of status epilepticus. Patient received 150 mcg of fentanyl, 10 mg of vecuronium for RSI. These refer to the procedure note. Post intubation, patient is currently on a Versed drip, Precedex drip, and propofol drip. Status post vancomycin and cefepime. Blood work showed white count 14.3. pH of 7.25. Blood cultures pending. CT head showed signs of brain bleed. Some lab work's as expected. White count of 14.3. Phenytoin within normal limit. Lactate elevated likely secondary to recent seizure. Patient will need continuous EEG monitoring for ongoing seizure. We attempted to perform a lumbar puncture however was unsuccessful after multiple attempts. A centra line was placed in the left groin. Please refer to the procedure notes. Case was discussed with Dr. Euceda who agreed with the transfer to [facility] ICU for EEG monitoring. The ICU team at [facility] requested for 2g of keppra and 2g of depakote prior to transfer. Meds given en route. Disposition: transfer for EEG monitoring of status epilepticus Lab Data : 01/22/22 17:45 01/22/22 17:26 Radiology Impressions Chest X-Ray 01/22/22 17:08 IMPRESSION: Endotracheal tube in proper positioning. Head CT 01/22/22 17:09 IMPRESSION: No acute intracranial abnormality. Mild sinusitis. Laboratory Results WBC 14.3 10^3/uL (4.0-10.0) H 01/22/22 17:45 RBC 4.46 10^6/uL (4.1-5.3) 01/22/22 17:45 Hgb 14.7 g/dL (11.7-16.6) 01/22/22 17:45 Hct 43.9 % (42.0-52.0) 01/22/22 17:45 MCV 98.4 fl (80-94) H 01/22/22 17:45 MCH 33.0 pg (28.0-34.0) 01/22/22 17:45 MCHC 33.5 g/dL (30.0-36.0) 01/22/22 17:45 RDW 14.2 % (12.1-15.1) 01/22/22 17:45 Plt Count 152 10^3/cmm (130-400) 01/22/22 17:45 MPV 12.1 fL (7.4-10.4) H 01/22/22 17:45 Neut % (Auto) 79.3 % 01/22/22 17:45 Lymph % (Auto) 9.7 % 01/22/22 17:45 [place] % (Auto) 7.0 % 01/22/22 17:45 Eos % (Auto) 2.2 % 01/22/22 17:45 Baso % (Auto) 0.6 % 01/22/22 17:45 Neut # (Auto) 11.34 10^3/uL (1.8-7.7) H 01/22/22 17:45 Lymph # (Auto) 1.4 10^3/uL (0.8-4.8) 01/22/22 17:45 [place] # (Auto) 1.0 10^3/uL (0.2-0.9) H 01/22/22 17:45 Eos # (Auto) 0.3 10^3/uL (0.0-0.8) 01/22/22 17:45 Baso # (Auto) 0.1 10^3/uL (0.0-0.1) 01/22/22 17:45 Nucleated RBC % (auto) 0 % 01/22/22 17:45 Nucleated RBCs # 0.0 /100WBC 01/22/22 17:45 Specimen Type Arterial 01/22/22 17:24 Sample Site Radial, left 01/22/22 17:24 ABG pH 7.25 (7.35-7.45) L 01/22/22 17:24 ABG pCO2 45.2 mmHg (35-45) H 01/22/22 17:24 ABG pO2 338.0 mmHg (80.0-100.0) H 01/22/22 17:24 ABG HCO3 19.7 mmol/L (22-26) L 01/22/22 17:24 ABG Base Excess -7.6 mmol/L (-2.0-2.0) L 01/22/22 17:24 Ricardo Test Pos 01/22/22 17:24 Hematocrit 48.6 % (42-52) 01/22/22 17:24 O2 Delivery Device Ambu 01/22/22 17:24 O2 Liters/Min 15.0 % 01/22/22 17:24 Electrical Appliance Servicer ID Hinja 01/22/22 17:24 Sodium 137 mmol/L (136-145) 01/22/22 17:26 Potassium 4.4 mmol/L (3.5-5.1) 01/22/22 17:26 Chloride 99 mmol/L (98-107) 01/22/22 17:26 Carbon Dioxide 17 mmol/L (22-29) L 01/22/22 17:26 Anion Gap 25.4 (5-19) H 01/22/22 17:26 BUN 12 mg/dL (6-20) 01/22/22 17:26 Creatinine 0.8 mg/dL (0.7-1.2) 01/22/22 17:26 GFR Calculation 102.3 mL/min (90-130) 01/22/22 17:26 Glucose 107 mg/dL (65-115) 01/22/22 17:26 Calculated Osmolality 284 mOsm/kg (285-295) L 01/22/22 17:26 Lactate 5.3 mmol/L (0.5-2.2) H* 01/22/22 17:45 Calcium 9.0 mg/dL (8.5-10.5) 01/22/22 17:26 Total Bilirubin 0.4 mg/dL (0.15-1.2) 01/22/22 17:26 AST 22 U/L (0-40) 01/22/22 17:26 ALT 13 U/L (0-41) 01/22/22 17:26 Alkaline Phosphatase 114 IU/L (40-130) 01/22/22 17:26 Creatine Kinase 83 U/L (39-308) 01/22/22 17:26 Troponin T Baseline 16 ng/L (0-15) H 01/22/22 17:26 NT-Pro-B Natriuret Pep 109 pg/mL (0-125) 01/22/22 17:26 Total Protein 6.8 g/dL (6.6-8.7) 01/22/22 17: Albumin 4.8 g/dL (3.5-5.2) 01/22/22 17: Globulin 2.0 g/dL (1.3-4.6) 01/22/22 17: Lipase 23 U/L (13-60) 01/22/22 17:26 TSH 5.22 uIU/mL (0.27-4.20) H 01/22/22 19:17 Free T4 0.98 ng/dL (0.82-1.77) 01/22/22 19:17 Urine Color Shabnam (Yellow) 01/22/22 21:19 Urine Appearance Clear (CLEAR) 01/22/22 21:19 Urine pH 5 (5-7) 01/22/22 21:19 Ur Specific [place] 1.020 (1.005-1.030) 01/22/22 21:19 Urine Protein Neg (Negative) 01/22/22 21:19 Urine Glucose (UA) Norm (Normal) 01/22/22 21:19 Urine Ketones Negative (Negative) 01/22/22 21:19 Urine Blood Neg (Negative) 01/22/22 21:19 Urine Nitrate Negative (Negative) 01/22/22 21:19 Urine Bilirubin 1+ (Negative) H 01/22/22 21:19 Urine Urobilinogen 1 mg/dL (Negative) H 01/22/22 21:19 Ur Leukocyte Esterase Negative (Negative) 01/22/22 21:19 Urine Opiates Screen Negative ng/mL (Negative) 01/22/22 21:19 Ur Barbiturates Screen Positive ng/mL (Negative) H 01/22/22 21:19 Phenytoin 10.6 ug/mL (10-20) 01/22/22 17:26 Ur Phencyclidine Scrn Negative ng/mL (Negative) 01/22/22 21:19 Ur Amphetamines Screen Negative ng/mL (Negative) 01/22/22 21:19 U Benzodiazepines Scrn Positive ng/mL (Negative) H 01/22/22 21:19 Urine Cocaine Screen Negative ng/mL (Negative) 01/22/22 21:19 U Marijuana (THC) Screen Negative ng/mL (Negative) 01/22/22 21:19 Coronavirus 229E (PCR) Not detected (NOT DETECT) 01/22/22 21:25 SARS-CoV-2 (PCR) Not detected (NOT DETECT) 01/22/22 21:25 Imaging Data Other Imaging: Radiologist's impression: [address] [address] [address] Scan Report Signed Patient: Jaziel Willis Unit #: [id number] : 1970 Age/Sex: 51 / M ADM Date: 01/22/22 Loc: ER Room/Bed: Attending Dr: Ordering Provider/Ordering MD: Jose Rafael Polk MD Date of Service: 01/22/22 Procedure(s): CT head wo con* [id number] Accession Number(s): [id number] Report Number: [id number] PROCEDURE INFORMATION: Exam: CT Head Without Contrast Exam date and time: 01/22/2022 6:12 PM Age: 51 years old Clinical indication: Condition or disease; Convulsions or seizures; Epilepsy; Severity not specified; Additional info: Status ep TECHNIQUE: Imaging protocol: Computed tomography of the head without contrast. Radiation optimization: All CT scans at this facility use at least one of these dose optimization techniques: automated exposure control; mA and/or kV adjustment per patient size (includes targeted exams where dose is matched to clinical indication); or iterative reconstruction. COMPARISON: CT head wo con* [id number] 11/30/2021 4:05 PM RADIATION DOSE METRICS: Total DLP (mGy-cm): 2153.8 FINDINGS: Brain: Mild atrophy and mild white matter chronic microvascular changes are noted. No hemorrhage or evidence of acute infarction.? No mass effect or midline shift. Cerebral ventricles: No ventriculomegaly. Paranasal sinuses: Mild sinusitis changes are appreciated. Mastoid air cells: Visualized mastoid air cells are well aerated. Bones/joints: Unremarkable. No acute fracture. Soft tissues: Unremarkable. CT/CT head wo con* [id number] IMPRESSION:? No acute intracranial abnormality.? Mild sinusitis. ? Dictated By: David Fuller MD Signed By: David Fuller MD Signed Date/Time: 01/22/22 1847 DD/ [address] [address] XRay Report Signed Patient: Jaziel Willis Unit #: [id number] : 1970 Age/Sex: 51 / M ADM Date: 01/22/22 Loc: ER Room/Bed: Attending Dr: Ordering Provider/Ordering MD: Jose Rafael Polk MD Date of Service: 01/22/22 Procedure(s): XR chest 1V portable [id number] Accession Number(s): [id number] Report Number: [id number] PROCEDURE INFORMATION: Exam: XR Chest Exam date and time: 01/22/2022 5:19 PM Age: 51 years old Clinical indication: Device placement; Ett placement (vent status); Additional info: Post-intubation TECHNIQUE: Imaging protocol: XR of the chest. Views: 1 view. COMPARISON: CR XR chest 1V portable [id number] 11/30/2021 4:08 PM FINDINGS: Tubes, catheters and devices: Endotracheal tube in place 3 cm above the jim. Lungs: Unremarkable. No consolidation. Pleural spaces: Unremarkable. No pleural effusion. No pneumothorax. Heart/Mediastinum: Unremarkable. No cardiomegaly. Bones/joints: Unremarkable. XR/XR chest 1V portable [id number] IMPRESSION: Endotracheal tube in proper positioning. ? Dictated By: Burke Farooq DO Signed By: Burke Farooq DO Signed Date/Time: 01/22/22 1746 DD/ 1719 Critical Care Time Critical Care Time: Critical Care Time: Yes Total Critical Care Time: 35 Attestation: The high probability of a clinically significant, sudden or life threatening deterioration of the patient's neurological system(s) required my full and direct attention, intervention and personal management. The critical care time is as shown. This time is in addition to time spent performing any reported procedures but includes the following: [x] Data and vital sign review and interpretation [x] Patient assessment, examination and intervention [x] Documentation [x] Medication orders and management Discharge Plan Discharge Patient Disposition: Transfer to ED Clinical Impression: Status epilepticus Condition: Stable Prescriptions: No Action chlorhexidine gluconate [Peridex] 0.12 % mouthwash 15 ml buccal BID Qty: 473 2RF ferrous gluconate 324 mg (38 mg iron) tablet 324 mg PO DAILY Qty: 30 2RF (DME) Compression hose 30/40 See Rx Instructions .Route .MEDSUPPLY Qty: 1 2RF Rx Instructions: Measure to fit A6531 trazodone 100 mg tablet 100 mg PO BEDTIME Qty: 30 5RF phenytoin 50 mg tablet,chewable See Rx Instructions .ROUTE .COMPLEX Qty: 270 5RF Dose Instruction: CHEW 4 TABLETS BY MOUTH EVERY 8 HOURS Rx Instructions: CHEW 4 TABLETS BY MOUTH EVERY 8 HOURS (DME) Compression hose 18/30 See Rx Instructions 0RF Rx Instructions: Measure for size A6530 levetiracetam [Keppra] 1,000 mg tablet 1,500 mg PO BID 0RF calcium carbonate-vitamin D3 [Os-Taiwo 500 + D3] 500mg (1,250mg) -600 unit tablet 1 tab PO BID 0RF Referrals: Candi Latif, REAL ESTATE OPERATIONS MANAGER-C [Primary Care Provider] - Coding Level of Care Code ED Community Health Educator for Chg Fwd Exam Detailed
--- NOTE | 2022-01-22 17:23 | PC.PHAR ---
PT UNABLE TO VERIFY DUE TO INTUBATION - MEDS VERIFIED BY EXTERNAL MED HISTORY [facility]
[2022-01-22] MEDS: LORazepam 2 mg/mL INJ 1 mL IVP (17:28)
[2022-01-22] MEDS: propofol 10 mg/mL SDV 20 mL 100 MG IVP (17:28)
[2022-01-22] MEDS: propofol 10 mg/mL SDV 20 mL 150 MG IVP (17:29)
[2022-01-22 17:32] LABS: ABG PCO2 45.2 mmHg (35-45); ABG PH Result 7.25 (7.35-7.45); Arterial Blood Gas Hematocrit 48.6 % (42-52); Base Excess ABG -7.6 mmol/L (-2.0-2.0); Blood Gas Allen Test Pos; Blood Gas Sample Type Arterial; HCO3 ABG 19.7 mmol/L (22-26)
[2022-01-22 17:34] LABS: Blood Gas Sample Site Radial, left; Oxygen Device AMBU
[2022-01-22 17:53] LABS: Troponin(5th) Baseline 16 ng/L (0-15)
[2022-01-22] MEDS: propofol 1,000 MG/100 ML INJ 4.08 MG IV (17:55)
[2022-01-22] MEDS: dexmedeTOMIDine 0.9 % NaCL 400 MCG/100 ML PREMIX 13.61 MCG IV (17:56)
[2022-01-22 17:57] LABS: Basophils # 0.1 10^3/uL (0.0-0.1); Basophils % 0.6 %; Eosinophils # 0.3 10^3/uL (0.0-0.8); Eosinophils % 2.2 %; Hematocrit 43.9 % (42.0-52.0); Hemoglobin 14.7 g/dL (11.7-16.6); Lymphocytes # 1.4 10^3/uL (0.8-4.8); Lymphocytes % 9.7 %; Mean Corpuscular HGB Conc 33.5 g/dL (30.0-36.0); Mean Corpuscular Volume 98.4 fl (80-94); Mean Platelet Volume 12.1 fL (7.4-10.4); Neutrophils # 11.34 10^3/uL (1.8-7.7); Neutrophils % 79.3 %; Nucleated Red Blood Cells % 0 %; Platelet Count 152 10^3/cmm (130-400); Red Blood Count 4.46 10^6/uL (4.1-5.3); Red Cell Distribution Width 14.2 % (12.1-15.1); White Blood Count 14.3 10^3/uL (4.0-10.0)
[2022-01-22 18:02] LABS: Alanine Aminotransferase 13 U/L (0-41); Albumin Level 4.8 g/dL (3.5-5.2); Alkaline Phosphatase 114 IU/L (40-130); Aspartate Amino Transferase 22 U/L (0-40); Blood Urea Nitrogen 12 mg/dL (6-20); Carbon Dioxide 17 mmol/L (22-29); Chloride 99 mmol/L (98-107); Creatine Phosphokinase 83 U/L (39-308); Glomerular Filtration Rate 102.3 mL/min (90-130); Glucose 107 mg/dL (65-115); Lipase 23 U/L (13-60); NT Pro B Type Natriuretic Pept 109 pg/mL (0-125); Osmolality Calculated 284 mOsm/kg (285-295); Sodium 137 mmol/L (136-145); Total Bilirubin 0.4 mg/dL (0.15-1.2); Total Protein 6.8 g/dL (6.6-8.7)
[2022-01-22 18:04] LABS: Anion Gap 25.4 (5-19); Potassium 4.4 mmol/L (3.5-5.1)
--- NOTE | 2022-01-22 18:21 | PC.NURSE ---
PATIENT BROUGHT IN BY EMS ACTIVELY SEIZING. TWO IV'S WERE ESTABLISHED. VITAL SIGNS WERE STABLE BUT PATIENT WAS UNABLE TO KEEP AN ADEQUATE AIRWAY. DR. LANTIGUA INTUBATED PATIENT.
[2022-01-22 18:30] LABS: Lactate (Lactic Acid level) 5.3 mmol/L (0.5-2.2)
--- NOTE | 2022-01-22 19:09 | ECG_ITS ---
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 Measurements Intervals [place] Rate: 52 P: 48 ND: 152 QRS: 67 QRSD: 141 T: 33 QT: 476 QTc: 446 Interpretive Statements SINUS BRADYCARDIA RIGHT BUNDLE BRANCH BLOCK [120+ ms QRS DURATION, UPRIGHT V1, 40+ ms S IN I/aVL/V4/V5/V6] Compared to ECG 01/22/2022 17:01:22 Sinus rhythm no longer present Indeterminate axis no longer present Electronically Signed On 01-22-2022 22:26:47 CDT by Mandeep Chen M.D. [email or web address] [email or web address].[employer]/store/OM/[id number]
[2022-01-22] MEDS: sodium chloride 0.9% 1,000 ML 999 ML IV ×2 (19:30→21:06)
[2022-01-22 19:41] LABS: Phenytoin Dilantin 10.6 ug/mL (10-20)
[2022-01-22 19:59] LABS: Free T4 Free Thyroxine 0.98 ng/dL (0.82-1.77); Thyroid Stimulating Hormone 5.22 uIU/mL (0.27-4.20)
[2022-01-22 21:24] LABS: Add Urine Microscopic? NO; Charge for UA Resulting for Rev
[2022-01-22 21:29] LABS: Bilirubin Urine 1+ (Negative); Blood Urine Neg (Negative); Glucose Urine UA Norm (Normal); Ketones Urine Negative (Negative); Leukocyte Esterase Urine Negative (Negative); Nitrate Urine Negative (Negative); Protein Urine Neg (Negative); Urine Appearance Clear (CLEAR); Urine Color Amber (Yellow); Urobilinogen Urine 1 mg/dL (Negative); pH Urine 5 (5-7)
[2022-01-22 21:36] LABS: Amphetamines Screen Urine Negative (Negative); Barbiturates Screen Urine Positive (Negative); Benzodiazepines Screen Urine Positive (Negative); Cocaine Screen Urine Negative (Negative); Opiate Screen Urine Negative (Negative); PCP Screen Urine Negative (Negative); THC Screen Urine Negative (Negative)
[2022-01-22 23:10] LABS: Adenovirus Not Detected (NOT DETECT); Chlamydia Pneumoniae Not Detected (NOT DETECT); Coronavirus 229E,HKU1,NL63,OC4 Not Detected (NOT DETECT); Human Metapneumovirus Not Detected (NOT DETECT); Human Rhinovirus/Enterovirus Not Detected (NOT DETECT); Influenza A Not Detected (NOT DETECT); Influenza A H1 Not Detected (NOT DETECT); Influenza A H1-2009 Not Detected (NOT DETECT); Influenza A H3 Not Detected (NOT DETECT); Influenza B Not Detected (NOT DETECT); Mycoplasma Pneumoniae Not Detected (NOT DETECT); Parainfluenza Virus Type 1 Not Detected (NOT DETECT); Parainfluenza Virus Type 2 Not Detected (NOT DETECT); Parainfluenza Virus Type 3 Not Detected (NOT DETECT); Parainfluenza Virus Type 4 Not Detected (NOT DETECT); Respiratory Syncytial Virus A Not Detected (NOT DETECT); Respiratory Syncytial Virus B Not Detected (NOT DETECT); SARS-COV-2 Not Detected (NOT DETECT)
[2022-01-23 11:31] LABS: Bacillus cereus group Not Detected (NOT DETECT); Bacillus subtillis group Not Detected (NOT DETECT); Corynebacterium Not Detected (NOT DETECT); Cutibacterium acnes (P.acnes) Not Detected (NOT DETECT); Enterococcus Not Detected (NOT DETECT); Enterococcus faecalis Not Detected (NOT DETECT); Enterococcus faecium Not Detected (NOT DETECT); Lactobacillus species Not Detected (NOT DETECT); Listeria Not Detected (NOT DETECT); Listeria monocytogenes Not Detected (NOT DETECT); Micrococcus Not Detected (NOT DETECT); Pan Candida Not Detected (NOT DETECT); Pan Gram-Negative Not Detected (NOT DETECT); Staphylococcus epidermidis Not Detected (NOT DETECT); Staphylococcus lugdunensis Not Detected (NOT DETECT); Staphylococcus species Detected (NOT DETECT); Streptococcus agalactiae Not Detected (NOT DETECT); Streptococcus anginosus group Not Detected (NOT DETECT); Streptococcus pneumoniae Not Detected (NOT DETECT); Streptococcus pyogenes Not Detected (NOT DETECT); Streptococcus species Not Detected (NOT DETECT); mecA Not Detected (NOT DETECT); mecC Not Detected (NOT DETECT)
[2022-01-27 09:38] LABS: Levetiracetam Keppra 26.1 mcg/mL
== END 2022-01-22 23:09 ==
PROVIDERS: Emergency Provider Emergency Medicine; PCP Nurse Practitioner
DX: G40.801 Other epilepsy, not intractable, with status epilepticus (principal); I10 Essential (primary) hypertension; E66.01 Morbid (severe) obesity due to excess calories; Z68.41 Body mass index [BMI] 40.0-44.9, adult
CPT/HCPCS: 36600; 51702; 70450; 71045; 80053; 80177; 80185; 80306; 81003; 82550; 82803; 83605; 83690; 83880; 84439; 84443; 84484; 85025; 87040; 87070; 87077; 87150; 87186; 87205; 87635; 93005; 94002; 94799; 96365; 96366; 96367; 96368; 99291; 99292; C1751; J1953; J2060; J2250; J2704; J3370; J3490; J7030; J7040

== ENCOUNTER → 2022-01-28 09:28 | Outpatient (BNVA) | payer MEDICARE, MEDICAID, SELFPAY | PROVIDERS: PCP Nurse Practitioner; Visit Provider Thoracic Surgery (Cardiothoracic Vascular Surgery) | DX: I96 Gangrene, not elsewhere classified (principal); L89.892 Pressure ulcer of other site, stage 2; L89.891 Pressure ulcer of other site, stage 1 | CPT/HCPCS: 97597 ==

== ENCOUNTER → 2022-02-04 09:18 | Outpatient (BNVA) | payer MEDICARE, MEDICAID, SELFPAY | PROVIDERS: PCP Nurse Practitioner; Visit Provider Nurse Practitioner Family | DX: I96 Gangrene, not elsewhere classified (principal); L89.892 Pressure ulcer of other site, stage 2 | CPT/HCPCS: 11042 ==

== ENCOUNTER → 2022-02-11 09:06 | Outpatient (BNVA) | payer MEDICARE, MEDICAID, SELFPAY | PROVIDERS: PCP Nurse Practitioner; Visit Provider Nurse Practitioner Family | DX: I96 Gangrene, not elsewhere classified (principal); L89.892 Pressure ulcer of other site, stage 2 | CPT/HCPCS: 11042; 11045 ==

== ENCOUNTER → 2022-02-18 08:05 | Outpatient (BNVA) | payer MEDICARE, MEDICAID, SELFPAY | PROVIDERS: PCP Nurse Practitioner; Visit Provider Specialist | DX: G40.311 Generalized idiopathic epilepsy and epileptic syndromes, intractable, with status epilepticus (principal); I96 Gangrene, not elsewhere classified; L97.822 Non-pressure chronic ulcer of other part of left lower leg with fat layer exposed | CPT/HCPCS: 11042; 36415; 80185; 99215 ==

== ENCOUNTER → 2022-02-25 09:21 | Outpatient (BNVA) | payer MEDICARE, MEDICAID, SELFPAY | PROVIDERS: PCP Nurse Practitioner; Visit Provider Thoracic Surgery (Cardiothoracic Vascular Surgery) | DX: Z09 Encounter for follow-up examination after completed treatment for conditions other than malignant neoplasm (principal); L97.822 Non-pressure chronic ulcer of other part of left lower leg with fat layer exposed | CPT/HCPCS: 11042 ==

== ENCOUNTER → 2022-03-04 08:56 | Outpatient (BNVA) | payer MEDICARE, MEDICAID, SELFPAY | PROVIDERS: PCP Nurse Practitioner; Visit Provider Thoracic Surgery (Cardiothoracic Vascular Surgery) | DX: I96 Gangrene, not elsewhere classified (principal); L89.892 Pressure ulcer of other site, stage 2 | CPT/HCPCS: 97597 ==

== ENCOUNTER → 2022-03-11 09:26 | Outpatient (BNVA) | payer MEDICARE, MEDICAID, SELFPAY | PROVIDERS: PCP Nurse Practitioner; Visit Provider Thoracic Surgery (Cardiothoracic Vascular Surgery) | DX: I96 Gangrene, not elsewhere classified (principal); L89.892 Pressure ulcer of other site, stage 2 | CPT/HCPCS: 97597 ==

== ENCOUNTER → 2022-03-18 08:55 | Outpatient (BNVA) | payer MEDICARE, MEDICAID, SELFPAY | PROVIDERS: PCP Nurse Practitioner; Visit Provider Thoracic Surgery (Cardiothoracic Vascular Surgery) | DX: I96 Gangrene, not elsewhere classified (principal); L89.892 Pressure ulcer of other site, stage 2 | CPT/HCPCS: 97597 ==

== ENCOUNTER → 2022-03-23 08:27 | Outpatient (BNVA) | payer MEDICARE, MEDICAID, SELFPAY | PROVIDERS: PCP Nurse Practitioner; Referring Provider Internal Medicine Interventional Cardiology; Visit Provider Podiatrist Foot & Ankle Surgery | DX: E11.8 Type 2 diabetes mellitus with unspecified complications (principal); E11.21 Type 2 diabetes mellitus with diabetic nephropathy; I73.9 Peripheral vascular disease, unspecified; L60.3 Nail dystrophy; M20.41 Other hammer toe(s) (acquired), right foot; M20.42 Other hammer toe(s) (acquired), left foot; M21.41 Flat foot [pes planus] (acquired), right foot; M21.42 Flat foot [pes planus] (acquired), left foot; L84 Corns and callosities; M21.611 Bunion of right foot; M21.612 Bunion of left foot | CPT/HCPCS: 11056; 11721; 99204 ==

== ENCOUNTER → 2022-03-25 09:02 | Outpatient (BNVA) | payer MEDICARE, MEDICAID, SELFPAY | PROVIDERS: PCP Nurse Practitioner; Visit Provider Nurse Practitioner Family | DX: Z09 Encounter for follow-up examination after completed treatment for conditions other than malignant neoplasm (principal) | CPT/HCPCS: 99212 ==

== ENCOUNTER → 2022-04-21 08:37 | Outpatient (BNVA) | payer MEDICARE, MEDICAID, SELFPAY | PROVIDERS: PCP Nurse Practitioner; Visit Provider Specialist | DX: G40.309 Generalized idiopathic epilepsy and epileptic syndromes, not intractable, without status epilepticus (principal); G40.802 Other epilepsy, not intractable, without status epilepticus; I87.2 Venous insufficiency (chronic) (peripheral); F79 Unspecified intellectual disabilities | CPT/HCPCS: 99214 ==

== ENCOUNTER → 2022-05-11 13:24 | Outpatient (BNVA) | payer MEDICARE, MEDICAID, SELFPAY | PROVIDERS: PCP Nurse Practitioner; Visit Provider Nurse Practitioner Family | DX: I96 Gangrene, not elsewhere classified (principal); L89.892 Pressure ulcer of other site, stage 2 | CPT/HCPCS: 11042; 99213 ==

== ENCOUNTER → 2022-05-14 14:52 | Outpatient (BNVA) | payer MEDICARE, MEDICAID, SELFPAY | PROVIDERS: PCP Nurse Practitioner; Visit Provider Nurse Practitioner Family | DX: L97.819 Non-pressure chronic ulcer of other part of right lower leg with unspecified severity (principal); Z51.89 Encounter for other specified aftercare | CPT/HCPCS: 29581 ==

== ENCOUNTER → 2022-05-18 10:37 | Outpatient (BNVA) | payer MEDICARE, MEDICAID, SELFPAY | PROVIDERS: PCP Nurse Practitioner; Visit Provider Thoracic Surgery (Cardiothoracic Vascular Surgery) | DX: I87.2 Venous insufficiency (chronic) (peripheral) (principal); L97.812 Non-pressure chronic ulcer of other part of right lower leg with fat layer exposed; I96 Gangrene, not elsewhere classified | CPT/HCPCS: 97597 ==

== ENCOUNTER 2022-05-21 11:11 | Inpatient (IN) | payer MEDICARE, MEDICAID, SELFPAY ==
[2022-05-21] VITALS (106 sets, daily range): BP systolic 100–200; BP diastolic 58–104; PULSE 59–106; RESP 14–38; O2SAT 79–100; BMI 38.1
--- NOTE | 2022-05-21 11:12 | XR_ITS ---
WS: [id number] Portable AP supine chest, 05/21/2022 Clinical Data: seizure Comparison: Portable chest, 01/22/2022. Findings: No nodules, masses or effusions are seen. The heart is normal. The pulmonary vascularity is not increased. No pneumonia or pneumothorax is seen. The endotracheal tube is above the jim. The nasogastric tube appears to be within the stomach. There is a resuscitation paddles overlying the rig ht chest. There are monitor leads on the chest wall. XR/XR chest 1V portable [id number] Impression: Satisfactory position of endotracheal tube and nasogastric tube.
--- NOTE | 2022-05-21 11:13 | ECG_ITS ---
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 Measurements Intervals [place] Rate: 63 P: 52 OK: 170 QRS: 65 QRSD: 140 T: 36 QT: 443 QTc: 455 Interpretive Statements SINUS RHYTHM RIGHT BUNDLE BRANCH BLOCK [120+ ms QRS DURATION, UPRIGHT V1, 40+ ms S IN I/aVL/V4/V5/V6] Compared to ECG 01/22/2022 20:21:19 Sinus bradycardia no longer present Electronically Signed On 05-21-2022 20:43:44 CDT by Luciana Whaley M.D. [email or web address] adult care unitBetter [facility]ankind[facility] [place].[employer]/store/OM/[id number]/[id number]
--- NOTE | 2022-05-21 11:26 | PC.NURSE ---
1110 PT ARRIVED TO ED UNRESPONSIVE WITH SNORING RESP. APPEARS TO BE SEIZING 1113 I-O PLACEMENT TO L TIBIA AND NASAL TRUMPET PLACED 1114 50MG PROPOFOL GIVEN 1116 40MG ETOMIDATE 10MG VECURONIUM GIVEN 1116 100MG PROPOFOL 10MG VERSED GIVEN 1117 PT INTUBATED, 24 AT THE TEETH 1128 18G TO L AC 1131 OG TUBE PLACED 1135 VALLADARES CATHETER PLACED
--- NOTE | 2022-05-21 11:36 | ED_ITS ---
HPI - Seizure General: Chief Complaint: Seizure Stated Complaint: seizure Time Seen by Provider: 05/21/22 11:12 History of Present Illness: HPI Narrative: 51-year-old male with a known history of seizure on arrival here. He was emergently intubated shortly after arrival. He been given 4 mg Ativan and 2 of Versed IM prior to arrival there are not able to establish IV access in the field. He chart reviewed for history. MD complaint: seizure Seizure History: Yes Possible Precipitating Event: medication (Noncompliance) Treatments prior to arrival: benzodiazepines Review of Systems General: Reports: ROS unobtainable due to endotracheal tube and ROS unobtainable due to medical condition PFSH ED PFSH: Medical History Endotracheally intubated Essential hypertension Hypertension Intellectual disability Leukocytosis Morbid obesity Nonhealing nonsurgical wound Peripheral vascular disease Seizure Status epilepticus Venous stasis dermatitis Surgical History S/P vein stripping Family History Father Cancer Lung cancer Mother CAD (coronary artery disease) Other Diabetes Heart disease Hypertension Denies family history of Stroke Social History Smoking and tobacco status: never smoked Second hand smoke exposure: No Smoking risk assessment/counseling performed?: No Alcohol intake: never Desire information about alcohol rehabilitation?: No Counseling given: No Desire information about substance/drug rehabilitation?: No Counseling given: No Caregiver/support person: Yes Lives independently: No Household members: family Marital status: Single service: No Current occupational status: disabled History of recent travel: No Current gender identity: Male Physical Exam HENMT: COMMON NORMALS: normocephalic and atraumatic HEAD & SCALP: normocephalic and atraumatic Resp: EFFORT & INSPECTION: Yes abnormal respiratory pattern, Yes respiratory distress, Yes decreased respiratory effort and Yes grunting Cardio: RATE: tachycardic GI: COMMON NORMALS: Soft to palpation and No hepatosplenomegaly present AUSCULTATION: Yes normoactive bowel sounds PALPATION: Yes Soft to palpation, No Tenderness to palpation present (GI), No Guarding due to palpation present (GI) and Yes No hepatosplenomegaly present Extremity: COMMON NORMALS: normal to inspection, capillary refill normal, no clubbing, cyanosis or edema, no calf tenderness and no pedal edema Procedures Central Line Placement Right IJ: Time Out Performed: Yes Patient Placed on Monitor/Pulse Ox: Yes MD Prep: mask, gown and gloves Central Line Prep: Chlorhexidine scrub Ultrasound Used for Placement: Yes Central Line Lumen Inserted: triple Post Procedure: sutured in place, good blood return, all ports aspirated, flushed, capped and sterile dressing applied Patient Tolerated Procedure: well Complications: none Intubation Time out performed: No sedative: Etomidate paralytic: Vecuronium Laryngoscope: fiber optic video scope Assist Device Used: fiber optic device ET Tube Size: 8.5 ET Tube Uncuffed: No Tube Secured Depth (cm): 24 Tube Secured Location: teeth Tube Placement Confirmation: visualized tube passing through cords, equal breath sounds bilaterally, no breath sounds over epigastrium and confirmation by capnometry Patient Tolerated Procedure: well Intubation Complications: none Course Vital Signs: Vital signs: Vital Signs Temperature 98.4 F 05/22/22 19:37 Pulse Rate 69 05/23/22 06:00 Respiratory Rate 15 05/23/22 06:00 Blood Pressure 162/77 05/23/22 06:00 Pulse Oximetry 98 05/23/22 06:00 Oxygen Delivery Ma thod 05/22/22 06:00 Fraction of Inspir ed Oxygen 21 05/22/22 12:32 MDM - Seizure MDM Narrative Medical decision making narrative: Patient in status epilepticus on arrival. He said a history of this in the past. ILO was placed we could not get peripheral IVs he was given vecuronium etomidate he is also given propofol and Versed to ease his seizures eventually was able to get him to unclenched and stop seizing enough that we could intubate him. After this were able to place peripheral IVs he was given Keppra bolus as well as started on Versed and propofol drips. Discussed Dr. Forrester she will follow also discussed with Dr. Jc will admit to the ICU. Medical Records Attestation: I reviewed the patient's medical records. Lab Data Attestation: I reviewed the patient's lab results. Result diagrams: 05/22/22 02:30 05/22/22 02:30 Labs: Radiology Impressions Chest X-Ray 05/22/22 07:00 Impression: 1. Satisfactory position of multiple tubes. 2. Development of patchy left lower lobe opacity which could represent atelectasis and/or pneumonia. 3. Development of mild right lower lobe opacity which again could represent pneumonia or atelectasis. Laboratory Results WBC 11.9 10^3/uL (4.0-10.0) H 05/21/22 11:29 RBC 4.57 10^6/uL (4.1-5.3) 05/21/22 11:29 Hgb 15.1 g/dL (11.7-16.6) 05/21/22 11:29 Hct 45.6 % (42.0-52.0) 05/21/22 11: MCV 99.8 fl (80-94) H 05/21/22 11: MCH 33.0 pg (28.0-34.0) 05/21/22 11: MCHC 33.1 g/dL (30.0-36.0) 05/21/22 11: RDW 14.0 % (12.1-15.1) 05/21/22 11:29 Plt Count 244 10^3/cmm (130-400) 05/21/22 11:29 MPV 9.8 fL (7.4-10.4) 05/21/22 11: Neut % (Auto) 63.8 % 05/21/22 11: Lymph % (Auto) 23.1 % 05/21/22 11:29 [place] % (Auto) 8.0 % 05/21/22 11:29 Eos % (Auto) 4.0 % 05/21/22 11:29 Baso % (Auto) 0.5 % 05/21/22 11:29 Neut # (Auto) 7.56 10^3/uL (1.8-7.7) 05/21/22 11: Lymph # (Auto) 2.7 10^3/uL (0.8-4.8) 05/21/22 11:29 [place] # (Auto) 1.0 10^3/uL (0.2-0.9) H 05/21/22 11:29 Eos # (Auto) 0.5 10^3/uL (0.0-0.8) 05/21/22 11:29 Baso # (Auto) 0.1 10^3/uL (0.0-0.1) 05/21/22 11: Nucleated RBC % (auto) 0 % 05/21/22 11: Nucleated RBCs # 0.0 /100WBC 05/21/22 11:29 PT 15.10 SECONDS (12.1-14.9) H 05/21/22 11:29 INR 1.15 (0.8-1.2) 05/21/22 11:29 Specimen Type Arterial 05/21/22 12:07 Sample Site Brachial, right 05/21/22 12:07 ABG pH 7.28 (7.35-7.45) L 05/21/22 12:07 ABG pCO2 45.8 mmHg (35-45) H 05/21/22 12:07 ABG pO2 475.0 mmHg (80.0-100.0) H 05/21/22 12:07 ABG HCO3 21.4 mmol/L (22-26) L 05/21/22 12:07 ABG O2 Saturation > 100.0 05/21/22 12:07 ABG Base Excess -5.5 mmol/L (-2.0-2.0) L 05/21/22 12:07 Ricardo Test N/a 05/21/22 12:07 A-a O2 Gradient 23.1 mmHg (5-10) H 05/21/22 12:07 Hematocrit 43.7 % (42-52) 05/21/22 12:07 Hgb O2 Saturation > 98.5 % (95-100) 05/21/22 12:07 Carboxyhemoglobin 1.0 %THgb (0.4-20.1) 05/21/22 12:07 Methemoglobin 0.5 % (0.4-1.5) 05/21/22 12:07 Total Hemoglobin 14.2 g/dL (14-18) 05/21/22 12:07 Sodium 139.0 mmol/L (131-143) 05/21/22 12:07 Potassium 3.7 mmol/L (3.5-5.0) 05/21/22 12:07 Glucose 97.0 mg/dL (70-115) 05/21/22 12:07 Ionized Calcium 1.2 mmol/L (1.1-1.4) 05/21/22 12:07 O2 Delivery Device Vent 05/21/22 12:07 FiO2 100.0 % 05/21/22 12:07 Tidal Volume 0.55 05/21/22 12:07 PEEP 5.0 cmH20 05/21/22 12:07 Ballistic Expert ID Amh 05/21/22 12:07 Sodium 135 mmol/L (136-145) L 05/21/22 11:29 Potassium 3.3 mmol/L (3.5-5.1) L 05/21/22 11:29 Chloride 98 mmol/L (98-107) 05/21/22 11:29 Carbon Dioxide 20 mmol/L (22-29) L 05/21/22 11:29 Anion Gap 20.3 (5-19) H 05/21/22 11:29 BUN 13 mg/dL (6-20) 05/21/22 11:29 Creatinine 0.8 mg/dL (0.7-1.2) 05/21/22 11:29 GFR Calculation 102.3 mL/min (90-130) 05/21/22 11:29 Glucose 100 mg/dL (65-115) 05/21/22 11:29 Calculated Osmolality 280 mOsm/kg (285-295) L 05/21/22 11:29 Calcium 8.9 mg/dL (8.5-10.5) 05/21/22 11:29 Magnesium 2.5 mg/dL (1.7-2.3) H 05/21/22 11:29 Total Bilirubin 0.5 mg/dL (0.15-1.2) 05/21/22 11:29 AST 23 U/L (0-40) 05/21/22 11:29 ALT 11 U/L (0-41) 05/21/22 11:29 Alkaline Phosphatase 111 U/L (40-130) 05/21/22 11:29 Total Protein 7.3 g/dL (6.6-8.7) 05/21/22 11:29 Albumin 4.3 g/dL (3.5-5.2) 05/21/22 11:29 Globulin 3.0 g/dL (1.3-4.6) 05/21/22 11:29 Urine Color Yellow (Yellow) 05/21/22 11:40 Urine Appearance Clear (CLEAR) 05/21/22 11:40 Urine pH 5 (5-7) 05/21/22 11:40 Ur Specific [place] 1.020 (1.005-1.030) 05/21/22 11:40 Urine Protein Neg (Negative) 05/21/22 11:40 Urine Glucose (UA) Norm (Normal) 05/21/22 11:40 Urine Ketones Negative (Negative) 05/21/22 11:40 Urine Blood Neg (Negative) 05/21/22 11:40 Urine Nitrate Negative (Negative) 05/21/22 11:40 Urine Bilirubin Neg (Negative) 05/21/22 11:40 Urine Urobilinogen 1 mg/dL (Negative) H 05/21/22 11:40 Ur Leukocyte Esterase Trace (Negative) H 05/21/22 11:40 Urine RBC 0-4 /hpf (0-2) H 05/21/22 11:40 Urine WBC 15-25 /hpf (0-5) H 05/21/22 11:40 Ur Squamous Epith Cells 0-4 /hpf (0-5) H 05/21/22 11:40 Amorphous Sediment Not Reportable 05/21/22 11:40 Urine Bacteria Trace /hpf (NONE) 05/21/22 11:40 Phenytoin 24.7 ug/mL (10-20) H 05/21/22 11:29 Levetiracetam 20.2 mcg/mL (6.0-46.0) 05/21/22 11:29 Critical Care Time Critical Care Time: Critical Care Time: Yes Total Critical Care Time: 75 Attestation: The high probability of a clinically significant, sudden or life threatening deterioration of the patient's neurologic/respiratory system(s) required my full and direct attention, intervention and personal management. The critical care time is as shown. This time is in addition to time spent performing any reported procedures but includes the following: [x] Data and vital sign review and interpretation [x] Patient assessment, examination and intervention [x] Documentation [x] Medication orders and management Discharge Plan Discharge Patient Disposition: Admitted As Inpatient Admit Provider: Fidel De Leon Clinical Impression: Status epilepticus, Morbid obesity, Frontal lobe epilepsy, Acute respiratory failure Condition: Stable Coding Level of Care Code ED Emergency Medicine Medical Director for Antonio Avila
[2022-05-21 11:46] LABS: Basophils # 0.1 10^3/uL (0.0-0.1); Basophils % 0.5 %; Eosinophils # 0.5 10^3/uL (0.0-0.8); Hematocrit 45.6 % (42.0-52.0); Hemoglobin 15.1 g/dL (11.7-16.6); Lymphocytes # 2.7 10^3/uL (0.8-4.8); Lymphocytes % 23.1 %; Mean Corpuscular HGB Conc 33.1 g/dL (30.0-36.0); Mean Corpuscular Volume 99.8 fl (80-94); Mean Platelet Volume 9.8 fL (7.4-10.4); Neutrophils # 7.56 10^3/uL (1.8-7.7); Neutrophils % 63.8 %; Nucleated Red Blood Cells % 0 %; Platelet Count 244 10^3/cmm (130-400); Red Blood Count 4.57 10^6/uL (4.1-5.3); White Blood Count 11.9 10^3/uL (4.0-10.0)
[2022-05-21 11:59] LABS: INR 1.15 (0.8-1.2)
[2022-05-21 12:14] LABS: Alanine Aminotransferase 11 U/L (0-41); Albumin Level 4.3 g/dL (3.5-5.2); Alkaline Phosphatase 111 U/L (40-130); Blood Urea Nitrogen 13 mg/dL (6-20); Calcium 8.9 mg/dL (8.5-10.5); Carbon Dioxide 20 mmol/L (22-29); Chloride 98 mmol/L (98-107); Creatinine Clr Calc Pharmacy 166.4238; Glomerular Filtration Rate 102.3 mL/min (90-130); Glucose 100 mg/dL (65-115); Osmolality Calculated 280 mOsm/kg (285-295); Sodium 135 mmol/L (136-145); Total Bilirubin 0.5 mg/dL (0.15-1.2); Total Protein 7.3 g/dL (6.6-8.7)
[2022-05-21 12:15] LABS: Anion Gap 20.3 (5-19); Aspartate Amino Transferase 23 U/L (0-40); Phenytoin Dilantin 24.7 ug/mL (10-20); Potassium 3.3 mmol/L (3.5-5.1)
[2022-05-21 12:18] LABS: ABG PCO2 45.8 mmHg (35-45); ABG PH Result 7.28 (7.35-7.45); Alveolar-Arterial Oxygen Gradi 23.1 mmHg (5-10); Arterial Blood Gas Hematocrit 43.7 % (42-52); Base Excess ABG -5.5 mmol/L (-2.0-2.0); Blood Gas Operator Identificat AMH; Blood Gas Sample Site Brachial, right; Blood Gas Sample Type Arterial; Blood Gas Tidal Volume 0.55; HCO3 ABG 21.4 mmol/L (22-26); Ionized Calcium Level - ABG 1.2 mmol/L (1.1-1.4); Methemoglobin 0.5 % (0.4-1.5); Oxygen Device VENT; Oxygen Saturation ABG > 100.0; Potassium Level - ABG 3.7 mmol/L (3.5-5.0); Total Hemoglobin 14.2 g/dL (14-18)
[2022-05-21] MEDS: propofol 1,000 MG/100 ML INJ 30 MG IV (12:38)
[2022-05-21 12:40] LABS: Glucose Urine UA Norm (Normal); Ketones Urine Negative (Negative); Protein Urine Neg (Negative); Urine Appearance Clear (CLEAR); Urine Color Yellow (Yellow)
[2022-05-21 12:41] LABS: Add Urine Microscopic? YES; Bacteria Urine TRACE /hpf; Bilirubin Urine Neg (Negative); Blood Urine Neg (Negative); Leukocyte Esterase Urine Trace (Negative); Nitrate Urine Negative (Negative); RBC Urine 0-4 /hpf (0-2); Squamous Epithelial Cell Urine 0-4 /hpf (0-5); Urobilinogen Urine 1 mg/dL (Negative); WBC Urine 15-25 /hpf (0-5); pH Urine 5 (5-7)
[2022-05-21 12:42] LABS: Add Urine Culture? No
--- NOTE | 2022-05-21 13:16 | PM.HP ---
Providers/Chief Complaint Admitting Physician: Fidel De Leon MD Primary Care Provider: NIRANJAN Drummond Chief Complaint: seizure History of Present Illness Jaziel Willis is a 51 year old male brought into the emergency department secondary to seizures, thought to be in status epilepticus. He has a long history of seizure disorder, and admissions for status in the past. No other history is available at the time of my evaluation. Review of Systems General: Reports: ROS unobtainable due to mental status Medications/Allergies Home Medications Medication Instructions Recorded Confirmed Last Taken Type Compression hose #1 ea 09/21/20 05/21/22 Unknown Rx Compression hose 07/13/21 05/21/22 Unknown History phenytoin 50 mg chewable tablet See Rx Instructions .Route 12/15/21 05/21/22 05/21/22 Rx .COMPLEX #270 tabs levetiracetam 1,000 mg tablet See Rx Instructions .Route 02/09/22 05/21/22 05/21/22 Rx .COMPLEX #60 tabs Diabetic Shoes with 3 pairs of #1 ea 03/23/22 05/21/22 Unknown Rx inserts Allergies Allergy/AdvReac Type Severity Reaction Status Date / Time No Known Allergies Allergy Verified 05/21/22 14:08 PFSH Acute PFSH: Medical History Endotracheally intubated Essential hypertension Hypertension Intellectual disability Leukocytosis Morbid obesity Nonhealing nonsurgical wound Peripheral vascular disease Seizure Status epilepticus Venous stasis dermatitis Surgical History S/P vein stripping Family History Father Cancer Lung cancer Mother CAD (coronary artery disease) Other Diabetes Heart disease Hypertension Denies family history of Stroke Social History Smoking and tobacco status: never smoked Second hand smoke exposure: No Smoking risk assessment/counseling performed?: No Alcohol intake: never Desire information about alcohol rehabilitation?: No Counseling given: No Desire information about substance/drug rehabilitation?: No Counseling given: No Caregiver/support person: Yes Lives independently: No Household members: family Marital status: Single service: No Current occupational status: disabled History of recent travel: No Current gender identity: Male Vitals/I&O/Wt Last Vital Signs Pulse 63 05/21/22 11:22 Resp 19 H 05/21/22 11:59 BP 113/71 05/21/22 11:22 Pulse Ox 100 05/21/22 11:22 O2 Del Method 05/21/22 11:22 FiO2 100 05/21/22 11:59 05/20/22 05/21/22 05/21/22 22:59 06:59 14:59 Intake Total 2.667 / 2.667 Balance 2.667 / 2.667 Weight last 48 hrs Weight 136.078 kg Weight 131.088 kg Physical Exam Narrative: General exam is an intubated, sedated male who will occasionally cough, and move his right upper extremity. Otherwise he is not responsive. HEENT: Atraumatic and normocephalic. Pupils equally round. Scleral injection is noted. Oropharynx with endotracheal tube and orogastric tube. Neck is supple, obese, no lymphadenopathy or thyromegaly Cardiovascular regular rate and rhythm, no murmur Lungs clear no wheezing or crackles Abdomen is soft, slight distention. Bowel sounds are noted. No obvious organomegaly but exam is difficult secondary to obesity demonstrates Saenz Extremities demonstrate an Unna boot on the right. Left with some venous stasis changes and a few superficial ulcers that do not appear infected. Skin see above Neurologic: Unresponsive on ventilator Data : 05/21/22 11:29 05/21/22 11:29 Other Labs: INR normal Initial ABG with pH 7.28, PCO2 46, PO2 475 FIO@ 100% Dilantin level 25, Keppra level pending Urinalysis 15-25 whites, 0-4 reds LFTs normal Calcium normal Chest x-ray demonstrates no infiltrate, endotracheal tube is in correct position. EKG demonstrates sinus rhythm, normal axis, intraventricular conduction delay consistent with right bundle branch block, no acute changes A&P Assessment and plan (1) Status epilepticus: Patient with known underlying seizure disorder, that has been difficult to control. Keppra, Dilantin IV given in the emergency department. Neurology consultation will be obtained Continue Keppra 1000 mg IV every 12 hours Continue Dilantin 250 mg mg every 8 hours We will try to continue his cenobamate. Famly will need to bring in from home. Will need to confirm with them that he has been taking. Briefly discussed with neurology. Status: Acute (2) Acute respiratory failure: Continue ventilator currently. Repeat ABG in about an hour. Try to wean ventilator tomorrow if stabilizes Status: Acute (3) Intellectual disability: Status: Acute Plan Venous stasis ulceration. We will remove the Unna boot. Initiate wound care. Keep pressure off area. Multiple other medical problems as outlined in past medical history Full code currently Lovenox for DVT prophylaxis. SCDs contraindicated secondary to venous stasis ulcers. Pepcid for GI prophylaxis Attestations Medical Necessity Statement*: Will need greater than 2 midnight stay for evaluation and treatment of status epilepticus with respiratory failure Critical Care Time: The high probability of a clinically significant, sudden or life threatening deterioration of the patient's [neurologic, pulmonary] system(s) required my full and direct attention, intervention and personal management. The critical care time is as shown. This time is in addition to time spent performing any reported procedures but includes the following: [x] Data and vital sign review and interpretation [x] Patient assessment, examination and intervention [x] Documentation [x] Medication orders and management Critical Care Time (min): 69 Coding Level of Care Code Acute General Education Instructor for Chg Fwd Diagnoses Status epilepticus G40.901 Acute respiratory failure J96.00 Intellectual disability F79
[2022-05-21 14:09] LABS: Magnesium 2.5 mg/dL (1.7-2.3)
[2022-05-21] MEDS: lidocaine 1% 5 ML in potassium chloride premix 100 ML 25 ML IV (14:22)
[2022-05-21] MEDS: propofol 1,000 MG/100 ML INJ 50 MG IV ×2 (15:44→17:09)
[2022-05-21] MEDS: cefTRIAXone 1,000 MG in sodium chloride 0.9% (plus) 50 ML 100 MG IV (16:01)
[2022-05-21] MEDS: enoxaparin 40 mg/0.4 mL Syringe SUBCUT (16:10)
[2022-05-21] MEDS: sodium chloride 0.9% 1,000 ML 75 ML IV (16:10)
[2022-05-21 16:57] LABS: ABG PCO2 39.3 mmHg (35-45); Arterial Blood Gas Hematocrit 42.9 % (42-52); Base Excess ABG -0.6 mmol/L (-2.0-2.0); Blood Gas Sample Type Arterial; Carboxyhemoglobin 1.3 %THgb (0.4-20.1); HCO3 ABG 24.1 mmol/L (22-26); HGB O2 Sat 96.5 % (95-100); Ionized Calcium Level - ABG 1.2 mmol/L (1.1-1.4); Methemoglobin 0.5 % (0.4-1.5); Oxygen Saturation ABG 98.4; PO2 ABG 91.6 mmHg (80.0-100.0); Potassium Level - ABG 3.9 mmol/L (3.5-5.0)
[2022-05-21 16:58] LABS: Alveolar-Arterial Oxygen Gradi 14.3 mmHg (5-10); Blood Gas Operator Identificat AMH; Blood Gas Sample Site Brachial, right; Blood Gas Tidal Volume 0.55; Oxygen Device VENT
[2022-05-21] MEDS: famotidine 20 mg/2 mL INJ IVP (17:08)
[2022-05-21] MEDS: propofol 1,000 MG/100 ML INJ 31.4 MG IV ×2 (20:10→23:23)
[2022-05-21] MEDS: PHENYTOIN 25 MG/ML 250 MG PO (21:06)
[2022-05-22] VITALS (101 sets, daily range): BP systolic 95–163; BP diastolic 58–95; PULSE 57–79; RESP 12–25; TEMP 36.6–36.9; O2SAT 93–100
[2022-05-22] MEDS: propofol 1,000 MG/100 ML INJ 31.4 MG IV ×2 (02:42→05:57)
[2022-05-22 02:55] LABS: Basophils # 0.1 10^3/uL (0.0-0.1); Basophils % 0.4 %; Eosinophils # 0.4 10^3/uL (0.0-0.8); Eosinophils % 2.9 %; Hematocrit 37.6 % (42.0-52.0); Hemoglobin 12.9 g/dL (11.7-16.6); Lymphocytes % 14.6 %; Mean Corpuscular HGB Conc 34.3 g/dL (30.0-36.0); Mean Corpuscular Hemoglobin 33.7 pg (28.0-34.0); Mean Corpuscular Volume 98.2 fl (80-94); Mean Platelet Volume 9.4 fL (7.4-10.4); Monocytes # 1.3 10^3/uL (0.2-0.9); Monocytes % 9.1 %; Neutrophils # 10.14 10^3/uL (1.8-7.7); Neutrophils % 72.6 %; Nucleated Red Blood Cells % 0 %; Platelet Count 175 10^3/cmm (130-400); Red Blood Count 3.83 10^6/uL (4.1-5.3); Red Cell Distribution Width 14.5 % (12.1-15.1)
[2022-05-22 03:46] LABS: Alanine Aminotransferase 8 U/L (0-41); Albumin Level 3.6 g/dL (3.5-5.2); Alkaline Phosphatase 90 U/L (40-130); Anion Gap 12.6 (5-19); Aspartate Amino Transferase 19 U/L (0-40); Blood Urea Nitrogen 14 mg/dL (6-20); Calcium 8.3 mg/dL (8.5-10.5); Carbon Dioxide 24 mmol/L (22-29); Chloride 105 mmol/L (98-107); Globulin 2.4 g/dL (1.3-4.6); Glucose 114 mg/dL (65-115); Magnesium 2.2 mg/dL (1.7-2.3); Osmolality Calculated 287 mOsm/kg (285-295); Potassium 3.6 mmol/L (3.5-5.1); Sodium 138 mmol/L (136-145); Total Bilirubin 0.5 mg/dL (0.15-1.2)
[2022-05-22] MEDS: chlorhexidine gluconate 4% Btl 118 mL 1 APPLIC TOPICAL (04:53)
[2022-05-22] MEDS: famotidine 20 mg/2 mL INJ IVP ×2 (05:25→17:03)
[2022-05-22 05:42] LABS: ABG PCO2 38.3 mmHg (35-45); ABG PH Result 7.41 (7.35-7.45); Arterial Blood Gas Hematocrit 41.9 % (42-52); Blood Gas Allen Test Pos; Blood Gas Operator Identificat JB; Blood Gas Sample Site Radial, right; Blood Gas Sample Type Arterial; HCO3 ABG 24.4 mmol/L (22-26); PO2 ABG 68.4 mmHg (80.0-100.0)
[2022-05-22 05:43] LABS: Blood Gas Tidal Volume 0.55; Oxygen Device VENT
[2022-05-22] MEDS: sodium chloride 0.9% 1,000 ML 75 ML IV ×2 (05:56→18:00)
--- NOTE | 2022-05-22 07:00 | XR_ITS ---
WS: [id number] Portable AP semiupright chest, 05/22/2022 Clinical Data: Follow-up pneumonia Comparison: Portable chest, 05/21/2022 Findings: A right internal jugular catheter has been inserted and ends at the caval atrial junction. The endotracheal tube and nasogastric tube remain in good position. A patchy left lower lobe opacity has developed since yesterday. The right lung shows mild opacity at the base. The heart is at the upp er limits of normal. No pneumothorax is seen. There are no masses or effusions. Monitor leads are on the chest wall. XR/XR chest 1V portable [id number] Impression: 1. Satisfactory position of multiple tubes. 2. Development of patchy left lower lobe opacity which could represent atelecta sis and/or pneumonia. 3. Development of mild right lower lobe opacity which again could represent pne umonia or atelectasis.
[2022-05-22] MEDS: propofol 1,000 MG/100 ML INJ 20 MG IV (09:25)
[2022-05-22] MEDS: PHENYTOIN 25 MG/ML 250 MG PO ×3 (09:37→23:11)
--- NOTE | 2022-05-22 10:33 | PM.PN ---
Subjective Subjective: Sedated on vent. No events overnight. Medications: Reviewed: Yes Vitals/I&O/Wt Last Vital Signs Temp 97.9 F 05/22/22 05:22 Pulse 58 L 05/22/22 09:15 Resp 12 05/22/22 09:01 BP 110/63 05/22/22 09:15 Pulse Ox 98 05/22/22 09:15 O2 Del Method 05/22/22 06:00 FiO2 21 05/22/22 09:01 05/21/22 05/22/22 05/22/22 22:59 06:59 14:59 Intake Total 468.750 / 169.443 6984.9 / 1938.650 100 / 100 Output Total 650 / 650 150 / 800 Balance -181.250 / -81.250 1219.9 / 1138.650 100 / 100 Weight last 48 hrs Weight 137.983 kg Weight 136.078 kg Weight 131.088 kg Physical Exam Narrative: General exam is an intubated, sedated male HEENT: Atraumatic and normocephalic. Pupils equally round. Oropharynx with endotracheal tube and orogastric tube. Neck is supple, obese, no lymphadenopathy or thyromegaly Cardiovascular regular rate and rhythm, no murmur Lungs clear no wheezing or crackles Abdomen is soft, slight distention. Bowel sounds are noted. No obvious organomegaly but exam is difficult secondary to obesity demonstrates Saenz Extremities demonstrate an Unna boot on the right. Left with some venous stasis changes and a few superficial ulcers that do not appear infected. Skin see above Neurologic: Unresponsive on ventilator Urinary Catheter Management: Saenz: Cath Placed During This Visit: yes Reason for Continuing Indwelling Catheter: Accurate Measurement of Urinary Output in Critically Ill Patients Urinary Catheter Date of Insertion: 05/21/22 Data : 05/22/22 02:30 05/22/22 02:30 A&P Assessment and plan (1) Status epilepticus: Patient with known underlying seizure disorder, that has been difficult to control. Keppra, Dilantin IV given in the emergency department. Discussed in detail with neurology Continue Keppra 1000 mg IV every 12 hours Continue Dilantin 250 mg mg every 8 hours Family has not been giving him cenobamate. We will discussed with neurology. Status: Acute (2) Acute respiratory failure: Try to wean from ventilator today Infiltrate has now been noted on x-ray. Cannot rule out aspiration with seizure. Will change antibiotic to Zosyn currently. Sputum culture has been ordered. Check COVID PCR, although unlikely. Status: Acute (3) Intellectual disability: Status: Acute Plan Venous stasis ulceration. Continue wound care. Keep pressure off area. Multiple other medical problems as outlined in past medical history Full code currently Lovenox for DVT prophylaxis. SCDs contraindicated secondary to venous stasis ulcers. Pepcid for GI prophylaxis Attestations Medical Necessity Statement*: Needs continued hospitalization for weaning of ventilator, close monitoring for return of baseline mental function. Critical Care Time: The high probability of a clinically significant, sudden or life threatening deterioration of the patient's [neurologic, pulmonary] system(s) required my full and direct attention, intervention and personal management. The critical care time is as shown. This time is in addition to time spent performing any reported procedures but includes the following: [x] Data and vital sign review and interpretation [x] Patient assessment, examination and intervention [x] Documentation [x] Medication orders and management Critical Care Time (min): 30 Coding Level of Care Code Acute Intelligence Officer Basic for Chg Fwd Diagnoses Status epilepticus G40.901 Acute respiratory failure J96.00 Intellectual disability F79
[2022-05-22] MEDS: piperacillin-tazobactam 3.375 GM in sodium chloride 0.9% (plus) 50 ML IV ×2 (11:28→18:00)
[2022-05-22 12:39] LABS: Adenovirus Not Detected (NOT DETECT); Chlamydia Pneumoniae Not Detected (NOT DETECT); Coronavirus 229E,HKU1,NL63,OC4 Not Detected (NOT DETECT); Human Metapneumovirus Not Detected (NOT DETECT); Human Rhinovirus/Enterovirus Not Detected (NOT DETECT); Influenza A Not Detected (NOT DETECT); Influenza A H1 Not Detected (NOT DETECT); Influenza A H1-2009 Not Detected (NOT DETECT); Influenza A H3 Not Detected (NOT DETECT); Influenza B Not Detected (NOT DETECT); Mycoplasma Pneumoniae Not Detected (NOT DETECT); Parainfluenza Virus Type 1 Not Detected (NOT DETECT); Parainfluenza Virus Type 2 Not Detected (NOT DETECT); Parainfluenza Virus Type 3 Not Detected (NOT DETECT); Parainfluenza Virus Type 4 Not Detected (NOT DETECT); Respiratory Syncytial Virus A Not Detected (NOT DETECT); Respiratory Syncytial Virus B Not Detected (NOT DETECT); SARS-COV-2 Not Detected (NOT DETECT)
--- NOTE | 2022-05-22 13:48 | PC.NURSE ---
Patient extubated to 2L NC per RT, Dr. De Leon at bedside after extubation, patient able to follow commands
--- NOTE | 2022-05-22 15:01 | PM.CONSULT ---
Providers/Reason For Consult Consulting Physician/Specialty*: Dr. De Leon Reason for Consult*: Status epilepticus Requesting Physician: Dr. 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 He has status epilepticus every few months. His last bout of status epilepticus was in December. I wrote a prescription for cenobamate titration when I saw him 04/21/2022 and based on the titration he should be on 50 mg twice a day. I would like for him to have a vagal nerve stimulator but he has an open wound on the left leg so he cannot get VNS installed. He came to the emergency department in status epilepticus and was intubated on arrival. An IV could not be established and Dr. Zaldivar had to put in an interosseous line. I came to the emergency department a short time later. The patient received IV loading dose of levetiracetam and 500 mg of phenytoin. I talked with Dr. Clifford and then with Dr. De Leon and I came to the patient's bedside. He was already on propofol IV by the time I arrived. This patient has been on Keppra with Dilantin for several years and those drugs have not kept him out of status epilepticus. He was previously doing well on lacosamide but his insurance company would not cover it and the family could not get the paperwork filled out for the medical assistance. Recently his mother came down with cancer and his sister has been managing his care. He started having seizures at the age of 9 months and then had a seizure about every 9 months throughout adulthood. He has had multiple episodes of status epilepticus that required intubation. He spends his time playing games on the computer. 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 ?He has a large scar on his left hand that he got from chewing on it when he was a baby. He likes [employer] car races. ?His favorite crew car driver is Gabriel Willis. Medications/Allergies Home Medications Medication Instructions Recorded Confirmed Last Taken Type Compression hose #1 ea 09/21/20 05/21/22 Unknown Rx Compression hose 07/13/21 05/21/22 Unknown History phenytoin 50 mg chewable tablet See Rx Instructions .Route 12/15/21 05/21/22 05/21/22 Rx .COMPLEX #270 tabs levetiracetam 1,000 mg tablet See Rx Instructions .Route 02/09/22 05/21/22 05/21/22 Rx .COMPLEX #60 tabs Diabetic Shoes with 3 pairs of #1 ea 03/23/22 05/21/22 Unknown Rx inserts Allergies Allergy/AdvReac Type Severity Reaction Status Date / Time No Known Allergies Allergy Verified 05/21/22 14:08 Current Medications Generic Name Dose Route Start Last Admin Trade Name Freq PRN Reason Stop Dose Admin Chlorhexidine Gluconate 1 applic 05/22/22 01:00 05/22/22 04:53 Chlorhexidine Gluconate 4% Btl 118 Ml TOPICAL 1 bottle Q24H OTIS Administration Enoxaparin Sodium 40 mg 05/21/22 16:30 05/21/22 16:10 Enoxaparin 40 Mg/0.4 Ml Syringe SUBCUT 40 mg Q24H OTIS Administration Famotidine 20 mg 05/21/22 18:00 05/22/22 05:25 Famotidine 20 Mg/2 Ml Inj IVP 20 mg Q12H OTIS Administration Levetiracetam 1,000 mg/ Sodium 110 mls @ 440 mls/hr 05/21/22 22:00 05/22/22 10:33 Chloride IV 440 mls/hr Q12H OTIS Administration Sodium Chloride 1,000 mls @ 75 mls/hr 05/21/22 15:53 05/22/22 05:56 Sodium Chloride 0.9% IV 75 mls/hr .[id number] OTIS Administration Piperacillin Sod/Tazobactam 50 mls @ 12.5 mls/hr 05/22/22 11:00 05/22/22 11:28 Sod 3.375 gm/ Sodium Chloride IV 12.5 mls/hr Q8H OTIS Administration Protocol As Directed Phenytoin 250 mg 05/21/22 21:00 05/22/22 14:11 Phenytoin Oral Susp 25 Mg/Ml (Ml) PO 250 mg TID OTIS Administration PFSH Acute PFSH: Medical History Endotracheally intubated Essential hypertension Hypertension Intellectual disability Leukocytosis Morbid obesity Nonhealing nonsurgical wound Peripheral vascular disease Seizure Status epilepticus Venous stasis dermatitis Surgical History S/P vein stripping Family History Father Cancer Lung cancer Mother CAD (coronary artery disease) Other Diabetes Heart disease Hypertension Denies family history of Stroke Social History Smoking and tobacco status: never smoked Second hand smoke exposure: No Smoking risk assessment/counseling performed?: No Alcohol intake: never Desire information about alcohol rehabilitation?: No Counseling given: No Desire information about substance/drug rehabilitation?: No Counseling given: No Caregiver/support person: Yes Lives independently: No Household members: family Marital status: Single service: No Current occupational status: disabled History of recent travel: No Current gender identity: Male Vitals/I&O/Wt Last Vital Signs Temp 97.9 F 05/22/22 05:22 Pulse 73 05/22/22 14:00 Resp 22 H 05/22/22 14:00 BP 154/92 05/22/22 14:00 Pulse Ox 100 05/22/22 14:00 O2 Del Method 05/22/22 06:00 FiO2 21 05/22/22 12:32 05/22/22 05/22/22 05/22/22 06:59 14:59 22:59 Intake Total 1369.9 / 1938.650 100 / 100 Output Total 150 / 800 Balance 1219.9 / 1138.650 100 / 100 Weight last 48 hrs Weight 304 lb 3.2 oz Weight 300 lb Weight 289 lb Physical Exam Narrative: This examination was from 05/21/2022 at the bedside in the emergency department around 1:00 in the afternoon. The patient was intubated on propofol and so the exam was limited. He did not have oculocephalic movements because of recent paralytic agents. He did have pupillary responses. There was no response to pain in any of the 4 extremities. He was not having any myoclonic jerks. Cardiac sounds were normal S1-S2 without murmur or gallop. Chest was clear to auscultation. Urinary Catheter Management: Saenz: Cath Placed During This Visit: yes Reason for Continuing Indwelling Catheter: Accurate Measurement of Urinary Output in Critically Ill Patients Urinary Catheter Date of Insertion: 05/21/22 Data : 05/22/22 02:30 05/22/22 02:30 Micro: Microbiology 05/21/22 11:55 Gram Stain - Final Sputum - Endotracheal Tube Aspirate Sputum Culture - Preliminary CT Head: My impression: His last CT scan of the head from December showed mild diffuse white matter changes. That was the fourth CAT scan of the year. A&P Assessment and plan (1) Status epilepticus: Is a 51-year-old man with recurrent bouts of status epilepticus unresponsive to medications. I have recently written no less than 4 iterations of cenobamate prescriptions but apparently those have not been filled. I think the best approach right now is to add lacosamide because it can be given IV and plan on discharging him on 200 mg twice daily. Discussed with Dr. De Leon. This gentleman usually has transient status epilepticus and is usually able to go home within a couple of days of admission. Status: Acute (2) Frontal lobe epilepsy: Status: Acute (3) Intellectual disability: Status: Acute (4) Cellulitis of oral soft tissues: Status: Acute (5) Generalized epilepsy: Status: Chronic Consult Attestations Medical Necessity Statement: Status epilepticus with threat of Time Spent in Patient Care: 40 minutes Critical Care Time: 15 minutes Coding Level of Care Code Acute Delivery And Installation Subcontractor for [facility] Diagnoses Status epilepticus G40.901 Frontal lobe epilepsy G40.802 Intellectual disability F79 Cellulitis of oral soft tissues K12.2 Generalized epilepsy G40.309
[2022-05-22] MEDS: enoxaparin 40 mg/0.4 mL Syringe SUBCUT (16:59)
[2022-05-22] MEDS: lacosamide 50 mg Tablet 200 MG OG-TUBE (17:03)
--- NOTE | 2022-05-22 18:49 | PC.NURSE ---
Addendum entered by Hortensia Jacinto RN 05/22/22 20:55: This RN witnessed waste @[phone] Original Note: Wasted 49.75 ml of versed
[2022-05-23] VITALS (36 sets, daily range): BP systolic 116–162; BP diastolic 65–107; PULSE 60–78; RESP 15–25; TEMP 36.6; O2SAT 93–99
[2022-05-23] MEDS: piperacillin-tazobactam 3.375 GM in sodium chloride 0.9% (plus) 50 ML IV ×3 (02:36→18:10)
[2022-05-23] MEDS: famotidine 20 mg/2 mL INJ IVP ×2 (05:02→17:03)
[2022-05-23 08:09] LABS: Levetiracetam Immunoassy 20.2 mcg/mL (6.0-46.0)
[2022-05-23] MEDS: sodium chloride 0.9% 1,000 ML 75 ML IV (09:32)
[2022-05-23] MEDS: lacosamide 50 mg Tablet 200 MG OG-TUBE ×2 (10:00→17:03)
[2022-05-23] MEDS: PHENYTOIN 25 MG/ML 250 MG PO ×3 (10:00→21:03)
--- NOTE | 2022-05-23 12:19 | P.PN_ITS ---
Subjective Subjective: He is feeling stronger but still requires assist to ambulate. His mother says he is agitated to go home. At my request the nursing staff and social sciences instructor have gone out of their way to see that he gets a prescription for Vimpat 200 mg twice daily on discharge for 15 days and the pharmacy has found a way to get the drug for $0.37 a month for him. Vitals/I&O/Wt Last Vital Signs Temp 98.4 F 05/22/22 19:37 Pulse 78 05/23/22 10:00 Resp 17 05/23/22 10:00 BP 158/86 05/23/22 10:00 Pulse Ox 97 05/23/22 10:00 O2 Del Method 05/23/22 09:48 O2 Flow Rate 2 05/23/22 09:48 FiO2 21 05/22/22 12:32 05/22/22 05/23/22 05/23/22 22:59 06:59 14:59 Intake Total 1415 / 1641.75 160 / 1801.75 1200 / 1200 Output Total 1350 / 1350 550 / 1900 Balance 65 / 291.75 -390 / -98.25 1200 / 1200 Weight last 48 hrs Weight 304 lb 9.6 oz Weight 304 lb 3.2 oz Physical Exam Narrative: He is back to baseline. He wants to go home. He is overall weak. Urinary Catheter Management: Saenz: Cath Placed During This Visit: yes Reason for Continuing Indwelling Catheter: Accurate Measurement of Urinary Output in Critically Ill Patients Urinary Catheter Date of Insertion: 05/21/22 Data : 05/22/22 02:30 05/22/22 02:30 Micro: Microbiology 05/21/22 16:45 Urine Culture - Preliminary Urine Catheterized 05/21/22 11:55 Gram Stain - Final Sputum - Endotracheal Tube Aspirate Sputum Culture - Preliminary A&P Assessment and plan (1) Status epilepticus: Plan Nursing staff And nursing home social worker have gone out of their way to arrange for Vimpat. I have sent a prescription today for 200 mg twice daily that should get him through for the next several months. The [facility] is affordable for his mother. Attestations Medical Necessity Statement*: Patient in status epilepticus and intubated now recovering. Time Spent in Patient Care: 30 min Coding Level of Care Code Acute Religious Activities Director for [facility] Margarita Diagnoses Status epilepticus G40.901
--- NOTE | 2022-05-23 14:53 | P.PN_ITS ---
Subjective Subjective: T-max 99.6 overnight. No acute interim events. No further noted seizure episodes. Medications: Reviewed: Yes Vitals/I&O/Wt Last Vital Signs Temp 98.4 F 05/22/22 19:37 Pulse 67 05/23/22 12:00 Resp 24 H 05/23/22 11:00 BP 144/98 05/23/22 12:00 Pulse Ox 93 05/23/22 12:00 O2 Del Method 05/23/22 09:48 O2 Flow Rate 2 05/23/22 09:48 FiO2 21 05/22/22 12:32 05/22/22 05/23/22 05/23/22 22:59 06:59 14:59 Intake Total 1415 / 1641.75 160 / 1801.75 1400 / 1400 Output Total 1350 / 1350 550 / 1900 Balance 65 / 291.75 -390 / -98.25 1400 / 1400 Weight last 48 hrs Weight 138.164 kg Weight 137.983 kg Physical Exam Narrative: General: No acute distress, AO x1, replies with few short words. HEENT: PERRLA, pupils bilaterally equal and reactive, pallors not present, right IJ central line in place. Chest: Normal vesicular breath sounds, no added sounds, equal good air entry bilaterally CVS: S1-S2 regular, no murmurs, no tachycardia, no gallops, no rubs Abdomen: Soft, nontender, no organomegaly, bowel sounds present Urinary Catheter Management: Saenz: Cath Placed During This Visit: yes Reason for Continuing Indwelling Catheter: Accurate Measurement of Urinary Output in Critically Ill Patients Urinary Catheter Date of Insertion: 05/21/22 Data : 05/22/22 02:30 05/22/22 02:30 Micro: Microbiology 05/21/22 16:45 Urine Culture - Preliminary Urine Catheterized 05/21/22 11:55 Gram Stain - Final Sputum - Endotracheal Tube Aspirate Sputum Culture - Preliminary A&P Assessment and plan (1) Status epilepticus: Patient with known underlying seizure disorder, that has been difficult to control. Keppra, Dilantin IV given in the emergency department. No further seizures noted postextubation. Continue Keppra 1000 mg IV every 12 hours Continue Dilantin 250 mg mg every 8 hours Also started on Vimpat 200 mg p.o. twice daily. Per chart review noted that patient's family had been having difficulty affording the Vimpat and therefore had not picked up the prescription sent multiple times. His prescription has been transferred over to [facility] pharmacy today and will qualify under the 340 be plan. Co-pay for the family is now negligible at $0.37. They state that they will be able to afford this medication going forward. Additionally meds to beds have been arranged in anticipation of upcoming discharge to minimize risk of interruption in medication. (2) Acute respiratory failure: Status postextubation Infiltrate has now been noted on x-ray. Cannot rule out aspiration with seizure. Continue piperacillin tazobactam sputum culture has been ordered., Thus far gram stain showing polymicrobial's COVID PCR negative (3) Intellectual disability: Plan Venous stasis ulceration, shallow over medial malleolus. Continue wound care. Keep pressure off area. Continue compression stocking. Follow-up with wound care clinic as outpatient Multiple other medical problems as outlined in past medical history Full code currently Lovenox for DVT prophylaxis. SCDs contraindicated secondary to venous stasis ulcers. Pepcid for GI prophylaxis Attestations Medical Necessity Statement*: Continue IV antibiotics, monitor for any further seizures, anticipate discharge in the upcoming 24 hours with transition to oral antibiotics. 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
[2022-05-23] MEDS: enoxaparin 40 mg/0.4 mL Syringe SUBCUT (16:30)
[2022-05-24] VITALS (12 sets, daily range): BP systolic 127–170; BP diastolic 70–94; PULSE 65–73; RESP 17–28; TEMP 36.6–36.9; O2SAT 95–100; BMI 37.0
[2022-05-24] MEDS: sodium chloride 0.9% 1,000 ML 75 ML IV (01:14)
[2022-05-24] MEDS: piperacillin-tazobactam 3.375 GM in sodium chloride 0.9% (plus) 50 ML IV ×2 (02:06→13:03)
[2022-05-24 03:52] LABS: Basophils # 0.1 10^3/uL (0.0-0.1); Basophils % 0.6 %; Eosinophils # 0.8 10^3/uL (0.0-0.8); Eosinophils % 6.4 %; Hematocrit 37.8 % (42.0-52.0); Lymphocytes # 2.2 10^3/uL (0.8-4.8); Lymphocytes % 18.1 %; Mean Corpuscular HGB Conc 34.4 g/dL (30.0-36.0); Mean Corpuscular Hemoglobin 32.8 pg (28.0-34.0); Mean Corpuscular Volume 95.5 fl (80-94); Mean Platelet Volume 10.2 fL (7.4-10.4); Monocytes # 1.2 10^3/uL (0.2-0.9); Monocytes % 10.1 %; Neutrophils # 7.89 10^3/uL (1.8-7.7); Neutrophils % 64.3 %; Nucleated Red Blood Cells % 0 %; Platelet Count 166 10^3/cmm (130-400); Red Blood Count 3.96 10^6/uL (4.1-5.3); Red Cell Distribution Width 13.6 % (12.1-15.1); White Blood Count 12.3 10^3/uL (4.0-10.0)
[2022-05-24 04:16] LABS: Alanine Aminotransferase 8 U/L (0-41); Albumin Level 3.5 g/dL (3.5-5.2); Alkaline Phosphatase 87 U/L (40-130); Anion Gap 13.8 (5-19); Aspartate Amino Transferase 14 U/L (0-40); Blood Urea Nitrogen 10 mg/dL (6-20); Calcium 8.6 mg/dL (8.5-10.5); Carbon Dioxide 25 mmol/L (22-29); Chloride 104 mmol/L (98-107); Globulin 2.7 g/dL (1.3-4.6); Glucose 95 mg/dL (65-115); Osmolality Calculated 289 mOsm/kg (285-295); Sodium 140 mmol/L (136-145); Total Bilirubin 0.6 mg/dL (0.15-1.2); Total Protein 6.2 g/dL (6.6-8.7)
[2022-05-24 04:34] LABS: Potassium 2.8 mmol/L (3.5-5.1)
[2022-05-24] MEDS: famotidine 20 mg/2 mL INJ IVP (05:26)
[2022-05-24] MEDS: lidocaine 1% 5 ML in potassium chloride premix 100 ML 25 ML IV ×2 (05:26→09:26)
--- NOTE | 2022-05-24 07:06 | PC.NURSE ---
bedside report received from Luther MIRZA
[2022-05-24] MEDS: lacosamide 50 mg Tablet 200 MG OG-TUBE (09:27)
[2022-05-24] MEDS: PHENYTOIN 25 MG/ML 250 MG PO (09:29)
--- NOTE | 2022-05-24 11:00 | PM.DCS ---
Discharge Providers Date of Admission: 05/21/22 15:53 Date of Discharge: May 24, 2022 Attending Provider at Admission: Fidel De Leon MD Attending Provider at Discharge: Jennifer Larry MD Primary Care Provider: NIRANJAN Drummond Diagnoses at Discharge Discharge Diagnosis (1) Status epilepticus: Status: Acute (2) Acute respiratory failure: Status: Acute (3) Intellectual disability: Status: Acute Reason for Visit Reason for Visit: seizure Hospital Course Hospital Course Jaziel Willis is a 51 year old male brought into the emergency department secondary to seizures, thought to be in status epilepticus.? He has a long history of seizure disorder, and admissions for status in the past. He was intubated on arrival and he was intubated upon arrival for low GCS, was able to be extubated on 05/22/2022 and has done well postextubation. He was treated with Keppra 1000 mg IV every 12 hours and Dilantin to 50 mg every 8 hours. Additionally Vimpat 200 mg twice daily has been added to his regimen. Patient has remained seizure-free during the course of his admission here. He is being discharged today in stable condition with addition of Vimpat to his daily regimen. Meds to beds have been arranged for the next 15 days. Additionally prescription for Vimpat has been sent to [facility] pharmacy where the co-pay is negligible and patient's mother states she will be able to afford this medication going forward. Patient also developed aspiration pneumonia, likely as a result of his seizure, he received treatment with piperacillin tazobactam while admitted, will be transitioned to p.o. Augmentin at the time of discharge. Physical Exam Narrative: General: No acute distress, AO x1, speaks one or two words, at baseline HEENT: PERRLA, pupils bilaterally equal and reactive, pallors not present Chest: Normal vesicular breath sounds, no added sounds, equal good air entry bilaterally CVS: S1-S2 regular, no murmurs, no tachycardia, no gallops, no rubs Abdomen: Soft, nontender, no organomegaly, bowel sounds present Extremities:shallow stasis venous ulcer on left leg medial malleolus, follwoed by wound care . Urinary Catheter Management: Saenz: Cath Placed During This Visit: yes Reason for Continuing Indwelling Catheter: Accurate Measurement of Urinary Output in Critically Ill Patients Urinary Catheter Date of Insertion: 05/21/22 Discharge Data Studies Completed and Pending Completed Studies During Hospitalization Category Date Time Status XR chest 1V portable [id number] Routine Exams 05/22/22 07:00 Completed XR chest 1V portable [id number] Stat Exams 05/21/22 11:12 Completed Radiology Impressions Chest X-Ray 05/22/22 07:00 Impression: 1. Satisfactory position of multiple tubes. 2. Development of patchy left lower lobe opacity which could represent atelectasis and/or pneumonia. 3. Development of mild right lower lobe opacity which again could represent pneumonia or atelectasis. Laboratory Results WBC 12.3 10^3/uL (4.0-10.0) H 05/24/22 03:03 RBC 3.96 10^6/uL (4.1-5.3) L 05/24/22 03:03 Hgb 13.0 g/dL (11.7-16.6) 05/24/22 03:03 Hct 37.8 % (42.0-52.0) L 05/24/22 03:03 MCV 95.5 fl (80-94) H 05/24/22 03:03 MCH 32.8 pg (28.0-34.0) 05/24/22 03:03 MCHC 34.4 g/dL (30.0-36.0) 05/24/22 03:03 RDW 13.6 % (12.1-15.1) 05/24/22 03:03 Plt Count 166 10^3/cmm (130-400) 05/24/22 03:03 MPV 10.2 fL (7.4-10.4) 05/24/22 03:03 Neut % (Auto) 64.3 % 05/24/22 03:03 Lymph % (Auto) 18.1 % 05/24/22 03:03 Barry % (Auto) 10.1 % 05/24/22 03:03 Eos % (Auto) 6.4 % 05/24/22 03:03 Baso % (Auto) 0.6 % 05/24/22 03:03 Neut # (Auto) 7.89 10^3/uL (1.8-7.7) H 05/24/22 03:03 Lymph # (Auto) 2.2 10^3/uL (0.8-4.8) 05/24/22 03:03 Barry # (Auto) 1.2 10^3/uL (0.2-0.9) H 05/24/22 03:03 Eos # (Auto) 0.8 10^3/uL (0.0-0.8) 05/24/22 03:03 Baso # (Auto) 0.1 10^3/uL (0.0-0.1) 05/24/22 03:03 Nucleated RBC % (auto) 0 % 05/24/22 03:03 Nucleated RBCs # 0.0 /100WBC 05/24/22 03:03 PT 15.10 SECONDS (12.1-14.9) H 05/21/22 11:29 INR 1.15 (0.8-1.2) 05/21/22 11:29 Specimen Type Arterial 05/22/22 05:28 Sample Site Radial, right 05/22/22 05:28 ABG pH 7.41 (7.35-7.45) 05/22/22 05:28 ABG pCO2 38.3 mmHg (35-45) 05/22/22 05:28 ABG pO2 68.4 mmHg (80.0-100.0) L 05/22/22 05:28 ABG HCO3 24.4 mmol/L (22-26) 05/22/22 05:28 ABG O2 Saturation 98.4 05/21/22 16:45 ABG Base Excess 0.0 mmol/L (-2.0-2.0) 05/22/22 05:28 Ricardo Test Pos 05/22/22 05:28 A-a O2 Gradient 14.3 mmHg (5-10) H 05/21/22 16:45 Hematocrit 41.9 % (42-52) L 05/22/22 05:28 Hgb O2 Saturation 96.5 % (95-100) 05/21/22 16:45 Carboxyhemoglobin 1.3 %THgb (0.4-20.1) 05/21/22 16:45 Methemoglobin 0.5 % (0.4-1.5) 05/21/22 16:45 Total Hemoglobin 14.0 g/dL (14-18) 05/21/22 16:45 Sodium 138.0 mmol/L (131-143) 05/21/22 16:45 Potassium 3.9 mmol/L (3.5-5.0) 05/21/22 16:45 Glucose 100.0 mg/dL (70-115) 05/21/22 16:45 Ionized Calcium 1.2 mmol/L (1.1-1.4) 05/21/22 16:45 O2 Delivery Device Vent 05/22/22 05:28 FiO2 21.0 % 05/22/22 05:28 Tidal Volume 0.55 05/22/22 05:28 PEEP 5.0 cmH20 05/22/22 05:28 Aircraft Structural Repair Mechanic ID Krishna 05/22/22 05:28 Sodium 140 mmol/L (136-145) 05/24/22 03:03 Potassium 2.8 mmol/L (3.5-5.1) L* 05/24/22 03:03 Chloride 104 mmol/L (98-107) 05/24/22 03:03 Carbon Dioxide 25 mmol/L (22-29) 05/24/22 03:03 Anion Gap 13.8 (5-19) 05/24/22 03:03 BUN 10 mg/dL (6-20) 05/24/22 03:03 Creatinine 0.5 mg/dL (0.7-1.2) L 05/24/22 03:03 GFR Calculation 176.0 mL/min (90-130) H 05/24/22 03:03 Glucose 95 mg/dL (65-115) 05/24/22 03:03 Calculated Osmolality 289 mOsm/kg (285-295) 05/24/22 03:03 Calcium 8.6 mg/dL (8.5-10.5) 05/24/22 03:03 Magnesium 2.2 mg/dL (1.7-2.3) 05/22/22 02:30 Total Bilirubin 0.6 mg/dL (0.15-1.2) 05/24/22 03:03 AST 14 U/L (0-40) 05/24/22 03:03 ALT 8 U/L (0-41) 05/24/22 03:03 Alkaline Phosphatase 87 U/L (40-130) 05/24/22 03:03 Total Protein 6.2 g/dL (6.6-8.7) L 05/24/22 03:03 Albumin 3.5 g/dL (3.5-5.2) 05/24/22 03:03 Globulin 2.7 g/dL (1.3-4.6) 05/24/22 03:03 Urine Color Yellow (Yellow) 05/21/22 11:40 Urine Appearance Clear (CLEAR) 05/21/22 11:40 Urine pH 5 (5-7) 05/21/22 11:40 Ur Specific Trimble 1.020 (1.005-1.030) 05/21/22 11:40 Urine Protein Neg (Negative) 05/21/22 11:40 Urine Glucose (UA) Norm (Normal) 05/21/22 11:40 Urine Ketones Negative (Negative) 05/21/22 11:40 Urine Blood Neg (Negative) 05/21/22 11:40 Urine Nitrate Negative (Negative) 05/21/22 11:40 Urine Bilirubin Neg (Negative) 05/21/22 11:40 Urine Urobilinogen 1 mg/dL (Negative) H 05/21/22 11:40 Ur Leukocyte Esterase Trace (Negative) H 05/21/22 11:40 Urine RBC 0-4 /hpf (0-2) H 05/21/22 11:40 Urine WBC 15-25 /hpf (0-5) H 05/21/22 11:40 Ur Squamous Epith Cells 0-4 /hpf (0-5) H 05/21/22 11:40 Amorphous Sediment Not Reportable 05/21/22 11:40 Urine Bacteria Trace /hpf (NONE) 05/21/22 11:40 Phenytoin 24.7 ug/mL (10-20) H 05/21/22 11:29 Levetiracetam 20.2 mcg/mL (6.0-46.0) 05/21/22 11:29 Coronavirus 229E (PCR) Not detected (NOT DETECT) 05/22/22 10:50 SARS-CoV-2 (PCR) Not detected (NOT DETECT) 05/22/22 10:50 Vitals Last Vital Signs Temp 98.5 F 05/24/22 10:00 Pulse 72 05/24/22 10:00 Resp 20 H 05/24/22 10:00 BP 153/91 05/24/22 10:00 Pulse Ox 97 05/24/22 10:00 O2 Del Method 05/24/22 10:00 O2 Flow Rate 2 05/23/22 09:48 FiO2 21 05/22/22 12:32 Discharge Plan Discharge Patient Disposition: Home Condition: Stable Prescriptions: New Vimpat 50 mg Tablet 200 mg og-tube BID 30 Days Qty: 240 0RF amoxicillin-pot clavulanate 875-125 mg tablet 1 tab PO BID 4 Days Qty: 8 0RF Continued (DME) Compression hose 30/40 See Rx Instructions .Route .MEDSUPPLY Qty: 1 2RF Rx Instructions: Measure to fit A6531 (DME) Diabetic Shoes with 3 pairs of inserts See Rx Instructions .ROUTE .MEDSUPPLY Qty: 1 0RF Rx Instructions: As directed by HOME phenytoin 50 mg tablet,chewable See Rx Instructions .ROUTE .COMPLEX Qty: 270 5RF Dose Instruction: CHEW 4 TABLETS BY MOUTH EVERY 8 HOURS Rx Instructions: CHEW 5 TABLETS BY MOUTH EVERY 8 HOURS levetiracetam 1,000 mg tablet See Rx Instructions .ROUTE .COMPLEX Qty: 60 5RF Dose Instruction: TAKE 1 & 1/2 TABLETS BY MOUTH TWO TIMES DAILY *TAKE IN MORNING AND EVENING* Rx Instructions: TAKE 1 & 1/2 TABLETS BY MOUTH TWO TIMES DAILY *TAKE IN MORNING AND EVENING* lacosamide [Vimpat] 200 mg tablet 200 mg PO BID Qty: 60 5RF lacosamide [Vimpat] 200 mg tablet 200 mg PO BID 30 Days Qty: 60 5RF (DME) Compression hose 18/30 See Rx Instructions Rx Instructions: Measure for size A6530 Discharge Orders: Discharge Order (Routine); Ordered 05/24/22 Ordered By: Jennifer Larry Referrals: Candi Latif FNP-C [Primary Care Provider] - Amy Forrester MD [Physician] - 1 month Discharge Diet: Usual diet Discharge Activity: Resume usual activity Patient Instructions: Opioid Safety Discharge Attestations Time Spent in Discharge Care*: greater than 30 min Status at Discharge: Cognitive status at discharge: moderately impaired cognition, Behavioral status at discharge: cooperative, Quality Metrics Clinical Quality Measures [ No reported AMI, CVA or VTE this stay] Coding Level of Care Code Acute Chg FW DC note Diagnoses Status epilepticus G40.901 Acute respiratory failure J96.00 Intellectual disability F79
--- NOTE | 2022-05-24 11:50 | PC.SOCIAL ---
IMM UPDATED IMM dated and initialed, copy placed in chart and copy given to patient
== END 2022-05-24 14:24 | disposition home or self-care (01) | DRG 208 ==
LOC: ER 11:37 → ICU 13:50
PROVIDERS: Emergency Medicine; Admitting Provider Internal Medicine; Emergency Provider Family Medicine; PCP Nurse Practitioner; Visit Provider Student in an Organized Health Care Education/Training Program
DX: J96.00 Acute respiratory failure, unspecified whether with hypoxia or hypercapnia (principal); J69.0 Pneumonitis due to inhalation of food and vomit; G40.801 Other epilepsy, not intractable, with status epilepticus; K12.2 Cellulitis and abscess of mouth; L97.329 Non-pressure chronic ulcer of left ankle with unspecified severity; E66.01 Morbid (severe) obesity due to excess calories; Z68.37 Body mass index [BMI] 37.0-37.9, adult; F79 Unspecified intellectual disabilities; I73.9 Peripheral vascular disease, unspecified; I87.2 Venous insufficiency (chronic) (peripheral); I10 Essential (primary) hypertension
CPT/HCPCS: 31500; 36415; 36556; 36592; 36600; 71045; 80051; 80053; 80177; 80185; 81001; 82330; 82803; 82805; 83735; 85025; 85610; 87070; 87086; 87205; 87635; 93005; 94002; 94003; 94799; 96365; 96366; 96367; 96372; 96375; 97116; 97161; 97597; 99291; 99292; C1751; J0696; J1165; J1650; J1953; J2250; J2543; J2704; J3480; J3490; J7030

== ENCOUNTER → 2022-06-02 13:42 | Outpatient (BNVA) | payer MEDICARE, MEDICAID, SELFPAY | PROVIDERS: PCP Nurse Practitioner; Visit Provider Nurse Practitioner Family | DX: I96 Gangrene, not elsewhere classified (principal); I87.2 Venous insufficiency (chronic) (peripheral); L97.812 Non-pressure chronic ulcer of other part of right lower leg with fat layer exposed | CPT/HCPCS: 11042 ==

== ENCOUNTER → 2022-06-09 09:55 | Outpatient (BNVA) | payer MEDICARE, MEDICAID, SELFPAY | PROVIDERS: PCP Nurse Practitioner; Visit Provider Nurse Practitioner Family | DX: I96 Gangrene, not elsewhere classified (principal); I87.2 Venous insufficiency (chronic) (peripheral); L97.812 Non-pressure chronic ulcer of other part of right lower leg with fat layer exposed | CPT/HCPCS: 11042 ==

== ENCOUNTER → 2022-06-16 09:28 | Outpatient (BNVA) | payer MEDICARE, MEDICAID, SELFPAY | PROVIDERS: PCP Nurse Practitioner; Visit Provider Podiatrist Foot & Ankle Surgery | DX: E11.8 Type 2 diabetes mellitus with unspecified complications (principal); E11.21 Type 2 diabetes mellitus with diabetic nephropathy; I73.9 Peripheral vascular disease, unspecified; L60.3 Nail dystrophy; M20.41 Other hammer toe(s) (acquired), right foot; M20.42 Other hammer toe(s) (acquired), left foot; M21.41 Flat foot [pes planus] (acquired), right foot; M21.42 Flat foot [pes planus] (acquired), left foot; L84 Corns and callosities; M21.611 Bunion of right foot; M21.612 Bunion of left foot | CPT/HCPCS: 11056; 11721 ==

== ENCOUNTER → 2022-06-16 13:11 | Outpatient (BNVA) | payer MEDICARE, MEDICAID, SELFPAY | PROVIDERS: PCP Nurse Practitioner; Visit Provider Nurse Practitioner Family | DX: I87.2 Venous insufficiency (chronic) (peripheral) (principal); L97.812 Non-pressure chronic ulcer of other part of right lower leg with fat layer exposed | CPT/HCPCS: 29581; 99212 ==

== ENCOUNTER → 2022-07-22 09:41 | Outpatient (BNVA) | payer MEDICARE, MEDICAID, SELFPAY | PROVIDERS: PCP Nurse Practitioner; Visit Provider Specialist | DX: G40.011 Localization-related (focal) (partial) idiopathic epilepsy and epileptic syndromes with seizures of localized onset, intractable, with status epilepticus (principal); F89 Unspecified disorder of psychological development | CPT/HCPCS: 99214 ==

== ENCOUNTER 2022-08-19 16:48 | Inpatient (IN) | payer MEDICARE, MEDICAID, SELFPAY ==
[2022-08-19] VITALS (24 sets, daily range): BP systolic 106–127; BP diastolic 54–67; PULSE 62–89; RESP 16–36; TEMP 36.6; O2SAT 88–99; BMI 40.1
--- NOTE | 2022-08-19 17:19 | W.ED.SEIZURE ---
HPI - Seizure General: Chief Complaint: Seizure Stated Complaint: SEIZURES/ UNCONCIOUS Time Seen by Provider: 08/19/22 17:18 Source: EMS Mode of arrival: EMS Limitations: altered mental status History of Present Illness: HPI Narrative: Initial history is limited to EMS report. They were called to the scene by family because of seizure. The patient has a longstanding history of seizure disorder and was found to be actively seizing by EMS upon arrival. No other significant history such as trauma, noncompliance with medications etc. Prior to arrival he was given Versed which according to EMS reduced his seizure frequency and intensity. Upon arrival to the emergency department he was noted to be actively seizing. MD complaint: seizure Seizure History: Yes [facility] ED PFSH: Medical History Cellulitis of oral soft tissues Endotracheally intubated Essential hypertension Frontal lobe epilepsy Generalized epilepsy Hypertension Intellectual disability Leukocytosis Morbid obesity Nonhealing nonsurgical wound Peripheral vascular disease Seizure Status epilepticus Venous stasis dermatitis Surgical History S/P vein stripping Family History Father Cancer Lung cancer Mother CAD (coronary artery disease) Other Diabetes Heart disease Hypertension Denies family history of Stroke Social History Smoking and tobacco status: never smoked Second hand smoke exposure: No Smoking risk assessment/counseling performed?: No Alcohol intake: never Desire information about alcohol rehabilitation?: No Counseling given: No Desire information about substance/drug rehabilitation?: No Counseling given: No Caregiver/support person: Yes Lives independently: No Household members: family Marital status: Single service: No Current occupational status: disabled History of recent travel: No Current gender identity: Male Physical Exam Narrative: EXAM NARRATIVE: Patient is unresponsive and actively having tonic-clonic jerking motions of all extremities but predominantly his left upper extremity with deviation of his eyes to the left with nystagmus with a fast component to the right. Const: GENERAL APPEARANCE: ill appearing NUTRITIONAL APPEARANCE: overweight HENMT: COMMON NORMALS: normocephalic, moist oral mucous membranes and oropharynx normal (No intraoral injury) HEAD & SCALP: normocephalic FACE & SINUS: normal facial exam TEETH & GINGIVA: Yes poor dentition Eye: COMMON NORMALS: Equal, round and reactive pupils present and conjunctivae normal CONJUNCTIVA: Yes conjunctivae normal PUPIL: Yes Equal, round and reactive pupils present Neck/C-Spine: COMMON NORMALS: full ROM, supple and no meningeal signs CERVICAL SPINE: Yes cervical ROM normal and No step off deformity Chest: COMMONS NORMALS: normal inspection of the chest Resp: COMMON NORMALS: normal respiratory effort, No use of accessory muscles and clear to auscultation bilaterally AUSCULTATION: clear to auscultation bilaterally Cardio: COMMON NORMALS: regular rate, regular rhythm, No murmurs present (Cardio) and Peripheral pulses 2+ throughout RATE: regular rate RHYTHM: regular rhythm PERIPHERAL PULSES: Peripheral pulses 2+ throughout GI: COMMON NORMALS: Soft to palpation, non-tender and no masses PALPATION: Yes Soft to palpation Back/Pelvis: COMMON NORMALS: thoracic and lumbar spine normal to inspection Extremity: COMMON NORMALS: normal to inspection, capillary refill normal, no calf tenderness and no pedal edema Neuro: COMMON NORMALS: deep tendon reflexes 2+ bilaterally SENSORIUM/ORIENTATION: Yes obtunded MENINGEAL SIGNS: Yes no meningeal signs Skin: COMMON NORMALS: no rashes or lesions noted, no wounds and no petechiae GENERAL SKIN EXAM: no rashes or lesions noted Course Reevaluation(s): Reevaluation #1: Patient continues to seize and was given a initial aliquot of 4 mg of Ativan followed by second 4 mg of Ativan and will be followed by a third in addition he will be get receiving a Keppra dose of 20 mg/kg IV. We will continue to follow his response if he continues to remain in status we will proceed with paralyzation intubation and propofol infusion. Time: 17:20 Reevaluation #2: After total of 12 mg of Ativan followed by 3 g of Keppra the patient appears to have stopped seizing with no tonic-clonic movements no nystagmus and has otherwise reassuring vital signs. We are continuing his evaluation at this time. Time: 17:34 Reevaluation #3: Patient remains stable and nonseizing at this time. His family is now present I discussed his most recent history. They state that he has been taking his medications as prescribed. He has had some mild congestion but no fever and no trauma and no other precipitating events. They state that this presentation is similar if not exactly like that he has had in the past. The patient will obviously need to be placed in observation status until he recovers back to his baseline and we can ensure that his seizures have been adequately controlled. Time: 19:15 Consultations: Consultation #1: Consulted neurologist Dr. Forrester who recommended additional anticonvulsants. Time: : Consultation #2: Discussed with overnight hospitalist who agreed to admission. Time: : Vital Signs: Vital signs: Vital Signs Temperature 97.9 F 08/19/22 17:28 Pulse Rate 62 08/19/22 19:15 Respiratory Rate 31 H 08/19/22 19:15 Blood Pressure 118/60 08/19/22 19:15 Pulse Oximetry 96 08/19/22 19:15 Oxygen Delivery Me thod 08/19/22 17:28 Oxygen Flow Rate 3 08/19/22 17:28 MDM - Seizure MDM Narrative Medical decision making narrative: Patient with known longstanding seizure disorder was brought to the emergency department by EMS after a cough in the family. He arrived in status epilepticus tonic-clonic activity. He was aggressively treated with lorazepam ultimately requiring 10 mg to control his seizures followed by 3 g of levetiracetam IV. His work-up to include imaging, labs did not reveal any evidence of untoward or complicating factors at this time. According to family this is similar to prior occurrences but he had not missed any medication doses that they are aware and had not suffered any recent illness fevers trauma etc. He remains postictal but stable. His neurologist was consulted and we will be placing him in the hospital for continued monitoring, medication adjustments and treatment as indicated. Lab Data 08/19/22 18:27 08/19/22 18:27 Labs: Radiology Impressions Chest X-Ray 08/19/22 17:34 IMPRESSION: No acute findings. Head CT 08/19/22 19:22 IMPRESSION: 1. Mild chronic sinus disease. 2. No acute intracranial findings. Laboratory Results WBC 14.4 10^3/uL (4.0-10.0) H 08/19/22 18:27 RBC 4.51 10^6/uL (4.1-5.3) 08/19/22 18:27 Hgb 13.8 g/dL (11.7-16.6) 12/21/22 18: Hct 46.4 % (42.0-52.0) 08/19/22 18: MCV 102.9 fl (80-94) H 08/19/22 18: MCH 30.6 pg (28.0-34.0) 08/19/22 18: MCHC 29.7 g/dL (30.0-36.0) L 08/19/22: RDW 13.6 % (12.1-15.1) 08/19/22 18: Plt Count 206 10^3/cmm (130-400) 08/19/22 18: MPV 11.9 fL (7.4-10.4) H 08/19/22 18: Neut % (Auto) 68.8 % 08/19/22 18: Lymph % (Auto) 24.3 % 08/19/22 18: [place] % (Auto) 5.4 % 08/19/22: Eos % (Auto) 0.8 % 08/19/22 18: Baso % (Auto) 0.2 % 08/19/22 18: Neut # (Auto) 9.89 10^3/uL (1.8-7.7) H 08/19/22: Lymph # (Auto) 3.5 10^3/uL (0.8-4.8) 08/19/22 18: [place] # (Auto) 0.8 10^3/uL (0.2-0.9) 08/19/22: Eos # (Auto) 0.1 10^3/uL (0.0-0.8) 08/19/22 18: Baso # (Auto) 0.0 10^3/uL (0.0-0.1) 08/19/22 Nucleated RBC % (auto) 0 % 08/19/22 Nucleated RBCs # 0.0 /100WBC 08/19/22 18: Sodium 137 mmol/L (136-145) 08/19/22 18: Potassium 4.4 mmol/L (3.5-5.1) 08/19/22 18: Chloride 95 mmol/L (98-107) L 08/19/22 18:27 Carbon Dioxide 38 mmol/L (22-29) H 08/19/22 18:27 Anion Gap 8.4 (5-19) 08/19/22 18:27 BUN 16 mg/dL (6-20) 08/19/22 18:27 Creatinine 0.6 mg/dL (0.7-1.2) L 08/19/22 18:27 GFR Calculation 142.6 mL/min (90-130) H 08/19/22 18:27 Glucose 161 mg/dL (65-115) H 08/19/22 18:27 Calculated Osmolality 289 mOsm/kg (285-295) 08/19/22 18: Calcium 8.5 mg/dL (8.5-10.5) 08/19/22 18:27 Ethyl Alcohol < 10 mg/dL (0-10) 08/19/22 18:27 Influenza Type A Ag negative (Negative) 08/19/22 19:37 Influenza Type B Ag negative (Negative) 08/19/22 19:37 SARS-CoV-2 Ag (Rapid) negative (Negative) 08/19/22 19:37 EKG Data EKG 1: Attestation: I personally reviewed and interpreted this EKG as follows: Interpretation: Review of the resting EKG reveals a sinus rhythm of 73 bpm. Right bundle branch block pattern is noted. Normal QTc interval. Normal axis. No acute ST-T wave changes noted at this time. No acute changes from prior EKGs. Discharge Plan Discharge Patient Disposition: Admitted As Inpatient Clinical Impression: Status epilepticus Condition: Stable Prescriptions: No Action (DME) Compression hose 30/40 See Rx Instructions .Route .MEDSUPPLY Qty: 1 2RF Rx Instructions: Measure to fit A6531 (DME) Diabetic Shoes with 3 pairs of inserts See Rx Instructions .ROUTE .MEDSUPPLY Qty: 1 0RF Rx Instructions: As directed by HOME permethrin [Elimite] 5 % cream 1 applic topical Q14D Qty: 60 0RF Rx Instructions: apply second treatment 14 days after first treatment if live lice remain lacosamide [Vimpat] 200 mg tablet 200 mg PO BID Qty: 60 5RF lacosamide [Vimpat] 200 mg tablet 200 mg PO BID 30 Days Qty: 60 5RF levetiracetam 1,000 mg tablet See Rx Instructions .ROUTE .COMPLEX Qty: 60 5RF Dose Instruction: TAKE 1 & 1/2 TABLETS BY MOUTH TWO TIMES DAILY *TAKE IN MORNING AND EVENING* Rx Instructions: TAKE 1 & 1/2 TABLETS BY MOUTH TWO TIMES DAILY *TAKE IN MORNING AND EVENING* phenytoin 50 mg tablet,chewable See Rx Instructions .ROUTE .COMPLEX Qty: 270 5RF Dose Instruction: CHEW 4 TABLETS BY MOUTH EVERY 8 HOURS Rx Instructions: CHEW 5 TABLETS BY MOUTH EVERY 8 HOURS (DME) Compression hose See Rx Instructions Rx Instructions: Measure for size A6530 Referrals: Candi Latif, [facility] [employer] [Primary Care Provider] - Coding Level of Care Code ED Contact Finger Assembler for Chg Fwd Exam Comprehensive
[2022-08-19] MEDS: LORazepam 2 mg/mL INJ 1 mL 4 MG IVP ×2 (17:20→17:30)
--- NOTE | 2022-08-19 17:34 | XRR_ITS ---
PROCEDURE INFORMATION: Exam: XR Chest Exam date and time: 08/19/2022 5:39 PM Age: 51 years old Clinical indication: Other: Seizures; Additional info: Seizure TECHNIQUE: Imaging protocol: Radiologic exam of the chest. Views: 1 view. COMPARISON: CR XR chest 1V portable [id number] 05/22/2022 5:02 AM FINDINGS: Lungs: Unremarkable. No consolidation. Pleural spaces: Unremarkable. No pleural effusion. No pneumothorax. Heart/Mediastinum: Unremarkable. No cardiomegaly. Bones/joints: Unremarkable. XR/XR chest 1V portable [id number] IMPRESSION: No acute findings.
[2022-08-19] MEDS: LORazepam 2 mg/mL INJ 1 mL IVP (17:35)
--- NOTE | 2022-08-19 17:42 | ECG_ITS ---
[facility] Test Date: 2022-08-19 Pat Name: Jaziel Willis Department: Room: Gender: Male [employer] Operator: : 1970 Requested By: Tai Fuller Order Number: [id number] Ceballos MD: Delma Saldana M.D. Measurements Intervals [place] Rate: 73 P: 43 LA: 164 QRS: 15 QRSD: 147 T: 2 QT: 417 QTc: 461 Interpretive Statements SINUS RHYTHM INDETERMINATE AXIS RIGHT BUNDLE BRANCH BLOCK [120+ ms QRS DURATION, UPRIGHT V1, 40+ ms S IN I/aVL/V4/V5/V6] Compared to ECG 05/21/2022 12:26:18 Indeterminate axis now present Electronically Signed On 08-20-2022 9:07:26 BIBLIOGRAPHIC SERVICES SPECIALIST by Delma Saldana M.D. [id number]
[2022-08-19 18:34] LABS: Basophils % 0.2 %; Eosinophils # 0.1 10^3/uL (0.0-0.8); Eosinophils % 0.8 %; Hematocrit 46.4 % (42.0-52.0); Hemoglobin 13.8 g/dL (11.7-16.6); Lymphocytes # 3.5 10^3/uL (0.8-4.8); Lymphocytes % 24.3 %; Mean Corpuscular HGB Conc 29.7 g/dL (30.0-36.0); Mean Corpuscular Hemoglobin 30.6 pg (28.0-34.0); Mean Corpuscular Volume 102.9 fl (80-94); Mean Platelet Volume 11.9 fL (7.4-10.4); Monocytes # 0.8 10^3/uL (0.2-0.9); Monocytes % 5.4 %; Neutrophils # 9.89 10^3/uL (1.8-7.7); Neutrophils % 68.8 %; Nucleated Red Blood Cells % 0 %; Platelet Count 206 10^3/cmm (130-400); Red Blood Count 4.51 10^6/uL (4.1-5.3); Red Cell Distribution Width 13.6 % (12.1-15.1); White Blood Count 14.4 10^3/uL (4.0-10.0)
[2022-08-19] MEDS: sodium chloride 0.9% 1,000 ML 999 ML IV (18:45)
[2022-08-19 18:56] LABS: Anion Gap 8.4 (5-19); Blood Urea Nitrogen 16 mg/dL (6-20); Calcium 8.5 mg/dL (8.5-10.5); Carbon Dioxide 38 mmol/L (22-29); Chloride 95 mmol/L (98-107); Glomerular Filtration Rate 142.6 mL/min (90-130); Glucose 161 mg/dL (65-115); Osmolality Calculated 289 mOsm/kg (285-295); Potassium 4.4 mmol/L (3.5-5.1); Sodium 137 mmol/L (136-145)
[2022-08-19 19:00] LABS: Alcohol Level < 10 mg/dL (0-10)
--- NOTE | 2022-08-19 19:22 | CTR_ITS ---
PROCEDURE INFORMATION: Exam: CT Head Without Contrast Exam date and time: 08/19/2022 7:55 PM Age: 51 years old Clinical indication: Condition or disease; Convulsions or seizures; Additional info: Prolonged sz, long HX of seizure disorder TECHNIQUE: Imaging protocol: Computed tomography of the head without contrast. Radiation optimization: All CT scans at this facility use at least one of these dose optimization techniques: automated exposure control; mA and/or kV adjustment per patient size (includes targeted exams where dose is matched to clinical indication); or iterative reconstruction. COMPARISON: CT head wo con* [id number] 01/22/2022 6:12 PM RADIATION DOSE METRICS: Total DLP (mGy-cm): 810.58 FINDINGS: Brain: Normal. No hemorrhage. Unremarkable white matter. No mass effect. Cerebral ventricles: No ventriculomegaly. Paranasal sinuses: There is mucosal thickening in both maxillary antra more on the right than on the left. Mastoid air cells: Visualized mastoid air cells are well aerated. Bones/joints: Unremarkable. No acute fracture. Soft tissues: Unremarkable. CT/CT head wo con* [id number] IMPRESSION: 1. Mild chronic sinus disease. 2. No acute intracranial findings.
[2022-08-19 20:07] LABS: Influenza A by IFA negative (Negative); Influenza B by IFA negative (Negative); SARS Covid-2 Antigen negative (Negative)
--- NOTE | 2022-08-19 21:26 | P.HP_ITS ---
Providers/Chief Complaint Primary Care Provider: NIRANJAN Drummond Chief Complaint: SEIZURES/ UNCONCIOUS History of Present Illness Jaziel Willis is a 51 year old male follows up with Dr. Forrestre, has history of status epilepticus, has been intubated in the past for similar reasons, he started having seizures since the age of 9 months, he gets recurrent episodes of breakthrough seizures, Dr. Forrester recommended vagal nerve stimulator he is presenting today with chief complaint of another episode of status epilepticus, he was given Versed by the EMS, on arrival in the ER he was actively seizing, he received 3 g of IV Keppra multiple doses of Ativan. He is in postictal state in the ER. He was not intubated. As per Dr. Forrester's note patient is on lacosamide 200 mg twice a day, phenytoin and Keppra. He takes lacosamide 200 mg twice a day Phenytoin 50 mg, 5 tablets by mouth every 8 hours Keppra 1000 mg 1-1/2 tablets by mouth twice daily Medications administered so far Patient was given 4 mg of Versed by the EMS In the ER he received total of 12 mg of Ativan 3 g of Keppra At the time of my evaluation patient is saturating well on 2 L nasal cannula He is able to protect his airway for now Family at the bedside As per the family patient was watching television around 4 PM when he started experiencing convulsions, EMS was called right away by the family. Patient is compliant with his medications, his family makes your that he stays compliant with all the antiepileptics recommended by Dr. Forrester. Review of Systems General: Reports: ROS unobtainable due to medical condition Medications/Allergies Home Medications Medication Instructions Recorded Confirmed Last Taken Type Compression hose #1 ea 09/21/20 07/22/22 Unknown Rx Compression hose 07/13/21 07/22/22 Unknown History Diabetic Shoes with 3 pairs of #1 ea 03/23/22 07/22/22 Unknown Rx inserts lacosamide 200 mg tablet (Vimpat) 200 mg PO BID #60 tabs 05/23/22 07/22/22 Unknown Rx lacosamide 200 mg tablet (Vimpat) 200 mg PO BID 1 month #60 tabs 06/09/22 07/22/22 Unknown Rx permethrin 5 % topical cream 1 applic topical Q14D #60 grams 06/10/22 07/22/22 Unknown Rx (Elimite) levetiracetam 1,000 mg tablet See Rx Instructions .Route 06/12/22 07/22/22 Unknown Rx .COMPLEX #60 tabs phenytoin 50 mg chewable tablet See Rx Instructions .Route 06/19/22 07/22/22 U nknown Rx .COMPLEX #270 tabs Allergies Allergy/AdvReac Type Severity Reaction Status Date / Time No Known Allergies Allergy Verified 07/22/22 09:44 PFSH Acute PFSH: Medical History Cellulitis of oral soft tissues Endotracheally intubated Essential hypertension Frontal lobe epilepsy Generalized epilepsy Hypertension Intellectual disability Leukocytosis Morbid obesity Nonhealing nonsurgical wound Peripheral vascular disease Seizure Status epilepticus Venous stasis dermatitis Surgical History S/P vein stripping Family History Father Cancer Lung cancer Mother CAD (coronary artery disease) Other Diabetes Heart disease Hypertension Denies family history of Stroke Social History Smoking and tobacco status: never smoked Second hand smoke exposure: No Smoking risk assessment/counseling performed?: No Alcohol intake: never Desire information about alcohol rehabilitation?: No Counseling given: No Desire information about substance/drug rehabilitation?: No Counseling given: No Caregiver/support person: Yes Lives independently: No Household members: family Marital status: Single service: No Current occupational status: disabled History of recent travel: No Current gender identity: Male Vitals/I&O/Wt Last Vital Signs Temp 97.9 F 08/19/22 17:28 Pulse 62 08/19/22 19:15 Resp 31 H 08/19/22 19:15 BP 118/60 08/19/22 19:15 Pulse Ox 96 08/19/22 19:15 O2 Del Method 08/19/22 17:28 O2 Flow Rate 3 08/19/22 17:28 08/19/22 08/19/22 08/19/22 06:59 14:59 22:59 Intake Total 230 / 230 Balance 230 / 230 Physical Exam Narrative: Morbidly obese man Currently on 2 L nasal cannula 100% saturation on telemetry showing sinus rhythm Hemodynamically stable Postictal Pupils are reactive to light bilaterally Distended abdomen soft nontender Lower extremity no edema No signs of myoclonus Neuro exam limited S1, S2 No audible stridor or wheeze Data 08/19/22 18:27 08/19/22 18:27 A&P Assessment and plan (1) Status epilepticus: (2) Developmental disorder: (3) Generalized epilepsy: (4) Frontal lobe epilepsy: (5) Intellectual disability: Plan Status epilepticus Patient received 4 mg of Versed by the EMS 12 mg of Ativan by the ED and then 3 g of IV Keppra I will transition his antiepileptics to IV form We will check antiepileptic serum level Candidate for vagal nerve stimulator? Patient failed triple therapy Follow-up with Dr. Forrester in the morning I will keep him n.p.o. for now Patient is in postictal state Able to protect his airway Admit to ICU High risk for intubation Calcium is normal I have requested phosphorus and magnesium level, CBC, BMP unremarkable Full code DVT prophylaxis Lovenox Attestations Medical Necessity Statement*: Anticipating more than 2 midnights for management of status epilepticus Time Spent in Patient Care: 40 Coding Level of Care Code Acute [employer] Outfit Supervisor for g Fwd Diagnoses Status epilepticus G40.901 Developmental disorder F89 Generalized epilepsy G40.309 Frontal lobe epilepsy G40.802 Intellectual disability F79
[2022-08-19 22:20] LABS: Phosphorus 2.7 mg/dL (2.5-4.5)
[2022-08-19 22:22] LABS: Phenytoin Dilantin 0.8 ug/mL (10-20)
[2022-08-19] MEDS: enoxaparin 40 mg/0.4 mL Syringe SUBCUT (23:08)
[2022-08-19] MEDS: lacosamide 200 MG in sodium chloride 0.9% 50 ML 120 MG IV (23:08)
[2022-08-19] MEDS: phenytoin 100 MG in sodium chloride 0.9% 20 ML, non-DEHP filter tubing onc 1 EACH 104 MG IV (23:32)
[2022-08-20] VITALS (83 sets, daily range): BP systolic 109–144; BP diastolic 60–90; PULSE 61–97; RESP 8–28; TEMP 37.1; O2SAT 93–98
[2022-08-20 02:14] LABS: Thyroid Stimulating Hormone 1.43 uIU/mL (0.27-4.20); Vitamin B12 291 pg/mL (232-1245)
[2022-08-20 06:21] LABS: Blood Urea Nitrogen 14 mg/dL (6-20); Calcium 8.5 mg/dL (8.5-10.5); Carbon Dioxide 22 mmol/L (22-29); Chloride 104 mmol/L (98-107); Glucose 71 mg/dL (65-115); Magnesium 2.3 mg/dL (1.7-2.3); Osmolality Calculated 287 mOsm/kg (285-295); Phosphorus 3.2 mg/dL (2.5-4.5); Sodium 139 mmol/L (136-145)
--- NOTE | 2022-08-20 06:26 | PC.PHAR ---
UNABLE TO VERIFY MEDICATIONS WITH PT-MEDICATIONS ENTERED ARE WHAT EXT MED HISTORY SHOWS HAS BEEN FILLED RECENTLY-NOTES ARE MADE IN THE PHARMACY COMMENTS WITH LAST DATES FILLED
[2022-08-20 06:50] LABS: Anion Gap 16.5 (5-19); Potassium 3.5 mmol/L (3.5-5.1)
--- NOTE | 2022-08-20 10:36 | CT_ITS ---
WS: [id number] CT HEAD NONCONTRAST HISTORY: L side weak, L side facial droop TECHNIQUE: Contiguous axial imaging performed through the brain in 2.5 mm imaging. Bone and soft tiss ue windows. Sagittal and coronal reformats reviewed. All CT scans at [facility] use at least one of these dose optimization techniques: automated exposure control; mA and/or kV adjustment per pa tient size (includes targeted exams where dose is matched to clinical indication); or iterative recon struction. DLP: 1704.04 mGy.cm COMPARISON: None available. No acute intracranial hemorrhage, midline shift or mass effect. No atrophy or prior infarcts or herniation. Ventricles: Normal size with no hydrocephalus. Paranasal sinuses: As visualized are clear. Mastoid air cells: Well pneumatized. Calvarium and scalp: Skull is intact with no soft tissue edema or swelling. CT/CT head wo con* [id number] IMPRESSION: Negative head CT. No hemorrhage or interval change since 08/19/2022
--- NOTE | 2022-08-20 10:49 | PC.CHAP ---
Pastoral Care Encounter/Spiritual Assessment Type of Contact [] Declined event designer visit [] Patient/Family/Request visit [] Outpatient visit [] Follow-up visit [] Physician referral [] Code/Alert [x] Routine visit [] Staff referral [] Actively dying [x] Patient sleeping [] Family support [] [] Out of room [] Palliative care [] [] Receiving care in room [] Pre-surgical visit [] Trauma [] Long length of stay [x] ICU visit [] Other: Relational/Emotional Strength [] Patient feels connected with others/family/visitors/staff [] Distress [] Loneliness/isolation [] Abandonment Spirituality of Patient [] Person of Jaycee [] Attends Anabaptism of their Jaycee [] Believes in Prayer [] Reads Bible or Hoahaoism materials [] There are Spiritual issues to be addressed Chief Of Safety And Protection Interventions [x] Prayer [] Active listening [] Non-anxious presence [] Spiritual/emotional support [] Crisis/trauma care [] Spiritual counseling [] Bereavement support [] Provided bereavement packet [] Provided Bible/devotional materials [] Provided toy/stuffed animal, coloring book to patient or family member [] Provided Communion [] Anointing/[place] [] Salvation [x] Completed spiritual assessment [] Other: Impact on Illness or Injury [] Angry [] Fearful [] Anxious [] Often cries [] Exhaustion [] Unable to work [] Unable to attend gnosticist [] Unable to walk/stand [] Unable to read [] Unable to drive [] Unable to eat/drink [] Unable to sleep [] Unable to be with family [] Patient intubated [] Other: Summary Time spent with patient
[2022-08-20] MEDS: lacosamide 200 MG in sodium chloride 0.9% 50 ML 120 MG IV ×2 (10:53→21:03)
--- NOTE | 2022-08-20 12:20 | USCV_ITS ---
Jaziel Willis Age: 51 Gender: M : 1970 Exam Date: 08/20/2022 14:07 Ordering Phys: Osmar Jimenez MD Technologist: Vaughn Nieto Exam Location: [facility] [place] Indication: cva BP: / HR: Rhythm: Sinus Technical Quality: Very technically difficult study MEASUREMENTS (Male / Female) Normal Values FINDINGS Left Ventricle Could not identify the cardiac structures. Extremely difficult study Right Ventricle Right Atrium Left Atrium Mitral Valve Aortic Valve Tricuspid Valve Pulmonic Valve Pericardium Aorta IVC CONCLUSIONS Clinically difficult study Could not identify the cardiac structures because of the poor ultrasonic window Dr Luciana Whaley MD [facility]ACC (Electronically Signed) Final Date: 20 August 2022 21:03 S
--- NOTE | 2022-08-20 12:20 | USCV_ITS ---
Jaziel Willis Age: 51 Gender: M : 1970 Exam Date: 08/20/2022 14:09 Ordering Phys: Osmar Jimenez MD Technologist: Vaughn Nieto Exam Location: [facility] [place] Indication: cva Risk Factors: Previous Vascular Surgery: Right Brachial BP: / Left Brachial BP: / Right Left Velocity (cm/s) Spectral Plaque Velocity (cm/s) Spectral Plaque Syst/Diast Broadening Syst/Diast Broadening 74.60/ 13.20 Prox CCA 83.10 / 20.20 75.40/ 14.80 Mid CCA 78.50 / 11.70 75.40/ 11.70 Distal CCA 67.60 / 12.40 61.40/ 10.10 Prox ICA 83.20 / 20.80 38.80/ 16.30 Mid ICA 126.90/ 18.70 73.00/ 21.80 Distal ICA 104.00/ 29.10 57.50 ECA 114.50 0.97 ICA/CCA 1.53 Antegrade Vertebral Antegrade 50.50/ 15.50 cm/s 43.00/ 9.00 cm/s Tri Subclavian Tri 70.70 147.7 0 FINDINGS Minimal intimal thickening in the ICA and CCA bilaterally CONCLUSIONS Minimal intimal thickening bilaterally in the CCAs and ICAs No significant stenosis noted Technically somewhat difficult study Dr Luciana Whaley MD [facility] (Electronically Signed) Final Date: 20 August 2022 21:07 S
[2022-08-20 13:08] LABS: Chol HDL Ratio 2.58 mg/dL (1.0-5.00); Cholesterol 160 mg/dL (0-200); HDL Cholesterol 62 mg/dL (60-100); LDL Cholesterol Calculated 84 mg/dL (50-129); LDL HDL Ratio 1.35 RATIO (0.00-3.22); Triglycerides 70 mg/dL (0-150)
--- NOTE | 2022-08-20 13:23 | PM.CONSULT ---
Providers/Reason For Consult Consulting Physician/Specialty*: Dr. Jimenez Reason for Consult*: Seizures out of control Requesting Physician: Dr. Fuller Attending Physician: Osmar Jimenez Primary Care Provider: NIRANJAN Drummond History of Present Illness History of Present Illness Jaziel Willis is a 51 year old male who is well-known to me as he has bouts of status epilepticus on average twice a year. He is not able to have a vagal nerve stimulator because he has an open wound in the left leg. Last time he was in status epilepticus was 05/21 through 05/23 and he got started back on Vimpat at that time. He was much more cheerful after resuming that drug, which kept him out of status epilepticus in the past. Unfortunately, even though he has been compliant he came in after having had several seizures last night and he always has to stay in the hospital for several days. Dr. Fuller was able to break his seizures without intubating him last night. I advised to give him an extra 100 mg of IV lacosamide. He already gave him 3 g of levetiracetam IV. Currently on 1500 mg of Keppra twice daily (1 1000 mg 1-1/2 twice daily), phenytoin 50 mg chewables 5 tablets every 8 hours and lacosamide 200 mg twice daily. Recently his mother came down with cancer and his sister has been managing his care. He started having seizures at the age of 9 months and then had a seizure about every 9 months throughout adulthood. He has had multiple episodes of status epilepticus that required intubation. He spends his time playing games on the computer. 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 ?He has a large scar on his left hand that he got from chewing on it when he was a baby. He likes [employer] car races. ?His favorite charter bus driver is Gabriel Willis. Review of Systems Narrative: Reportedly he did not miss any of his medications Const: Denies: fever(s), change in weight or fatigue Eyes: Denies: change in vision, blurry vision, blind spots, photophobia, eye discomfort, seeing flashes or other (Glaucoma) ENMT: Denies: odynophagia, hoarseness, change in hearing, tinnitus, sinus pain or other (Loss of taste/smell) Card: Denies: chest pain, palpitations, syncope or other (Calf cramps) Resp: Denies: dyspnea, non-productive cough, wheezing or hemoptysis GI: Denies: abdominal pain, nausea, heartburn, diarrhea, constipation or hematochezia : Denies: urinary frequency or urinary incontinence Musc: Denies: neck pain, muscle weakness or other (Muscle pain) Skin/Breast: Reports: sores (Venous stasis dermatitis); Denies: new lesions or breast mass Neuro: Denies: headache(s), numbness in extremities, weakness in extremities, sensory changes, difficulty walking, Slurred speech present, seizure-like activity or other (Sleep Apnea) Psych: Denies: depression, irritability, memory loss, difficulty concentrating or other (Personality Changes) Endo: Denies: polyuria, polydipsia, excessive sweating or change in body appearance Huseyin/Lymph: Denies: easy bruising, easy bleeding or enlarged lymph nodes Medications/Allergies Home Medications Medication Instructions Recorded Confirmed Last Taken Type Compression hose #1 ea 09/21/20 08/20/22 Unknown Rx Compression hose 07/13/21 08/20/22 Unknown History Diabetic Shoes with 3 pairs of #1 ea 03/23/22 08/20/22 Unknown Rx inserts lacosamide 200 mg tablet (Vimpat) 200 mg PO BID 1 month #60 tabs 06/09/22 08/20/22 Unknown Rx phenytoin 50 mg chewable tablet See Rx Instructions .Route 06/19/22 08/20/22 Unknown Rx .COMPLEX #270 tabs levetiracetam 1,000 mg tablet 1,500 mg PO BID 08/20/22 08/20/22 Unknown History trazodone 100 mg tablet 100 mg PO BEDTIME 08/20/22 08/20/22 Unknown History Allergies Allergy/AdvReac Type Severity Reaction Status Date / Time No Known Allergies Allergy Verified 07/22/22 09:44 Current Medications Generic Name Dose Route Start Last Admin Trade Name Freq PRN Reason Stop Dose Admin Enoxaparin Sodium 40 mg 08/19/22 22:53 08/19/22 23:08 Enoxaparin 40 Mg/0.4 Ml Syringe SUBCUT 40 mg Q24H OTIS Administration Lacosamide 200 mg/ Sodium 70 mls @ 120 mls/hr 08/19/22 21:45 12/22/22 12:42 Chloride IV Infused Q12H OTIS Infusion Levetiracetam 1,500 mg/ Sodium 115 mls @ 440 mls/hr 08/19/22 22:53 08/19/22 23:50 Chloride IV Infused Q12H OTIS Infusion Phenytoin 100 mg/ Sodium 20 mls @ 104 mls/hr 08/20/22 08:00 08/20/22 10:25 Chloride/ IV Miscellaneous IV Infused Supplies Q8H OTIS Infusion PFSH Acute PFSH: Medical History Cellulitis of oral soft tissues Endotracheally intubated Essential hypertension Frontal lobe epilepsy Generalized epilepsy Hypertension Intellectual disability Leukocytosis Morbid obesity Nonhealing nonsurgical wound Peripheral vascular disease Seizure Status epilepticus Venous stasis dermatitis Surgical History S/P vein stripping Family History Father Cancer Lung cancer Mother CAD (coronary artery disease) Other Diabetes Heart disease Hypertension Denies family history of Stroke Social History Smoking and tobacco status: never smoked Second hand smoke exposure: No Smoking risk assessment/counseling performed?: No Alcohol intake: never Desire information about alcohol rehabilitation?: No Counseling given: No Desire information about substance/drug rehabilitation?: No Counseling given: No Caregiver/support person: Yes Lives independently: No Household members: family Marital status: Single service: No Current occupational status: disabled History of recent travel: No Current gender identity: Male Vitals/I&O/Wt Last Vital Signs Temp 97.9 F 08/19/22 17:28 Pulse 95 08/20/22 07:45 Resp 17 08/20/22 07:45 BP 127/67 08/19/22 22:09 Pulse Ox 96 08/20/22 07:45 O2 Del Method 08/20/22 07:45 O2 Flow Rate 3 08/19/22 17:28 08/19/22 08/20/22 08/20/22 22:59 06:59 14:59 Intake Total 230 / 230 207 / 437 90 / 90 Output Total 750 / 750 Balance 230 / 230 -543 / -313 90 / 90 Weight last 48 hrs Weight 304 lb 12.8 oz Physical Exam Narrative: He has my left hemiparesis including the face and left arm and leg. He is neglecting the left side more than he is weak. Otherwise his exam is unchanged. He is cheerful and makes eye contact. Lungs clear. Heart sounds normal. Urinary Catheter Management: Saenz: Cath Placed During This Visit: yes Reason for Continuing Indwelling Catheter: Accurate Measurement of Urinary Output in Critically Ill Patients Urinary Catheter Date of Insertion: 08/19/22 Urinary Catheter Time of Insertion: 22:55 Data 08/19/22 18:27 08/20/22 04:08 A&P Assessment and plan (1) Frontal lobe epilepsy: He has focus based epilepsy, intractable, with secondary generalized epilepsy. He often has left-sided weakness post ictal and this is not unusual for him. I would not recommend any changes in his medication regimen. His drug levels have not come back yet. I can see him in the clinic in a couple of weeks. He should spontaneously recover his left-sided strength and does not need any further imaging than what has been done already. Thanks for asking me to participate in his care. (2) Generalized epilepsy: (3) Patrick's paralysis (postepileptic): Consult Attestations Medical Necessity Statement: He had multiple seizures and fortunately did not require intubation Time Spent in Patient Care: 60 minutes Coding Level of Care Code Acute Office Services Specialist for Antonio Avila Diagnoses Frontal lobe epilepsy G40.802 Generalized epilepsy G40.309 Patrick's paralysis (postepileptic) G83.84
--- NOTE | 2022-08-20 19:04 | P.PN_ITS ---
Subjective Subjective: This morning he gradually becomes more awake. He follows directions. Is difficult to understand, although speech appears to be at baseline for discussion with his family. Left-sided facial droop on the left side weakness appears to be new to him. Per discussion with his family usually able to ambulate. He feeds himself, but they have to assist him with getting meals Wednesday, dressing, showering and his medications. He says that he would like to go home and watch wrestling. Vitals/I&O/Wt Last Vital Signs Temp 97.9 F 08/19/22 17:28 Pulse 69 08/20/22 18:30 Resp 20 H 08/20/22 18:30 BP 136/81 08/20/22 18:30 Pulse Ox 97 08/20/22 18:30 O2 Del Method 08/20/22 18:30 O2 Flow Rate 3 08/19/22 17:28 08/20/22 08/20/22 08/20/22 06:59 14:59 22:59 Intake Total 207 / 437 325 / 325 1140 / 1465 Output Total 750 / 750 Balance -543 / -313 325 / 325 1140 / 1465 Weight last 48 hrs Weight 138.255 kg Physical Exam Const: COMMON NORMALS: alert GENERAL APPEARANCE: cooperative (Follows directions but inconsistently) ORIENTATION/CONSCIOUSNESS: Yes awake HENMT: COMMON NORMALS: oropharynx normal Neck/C-Spine: COMMON NORMALS: no JVD Resp: COMMON NORMALS: normal respiratory effort and clear to auscultation bilaterally AUSCULTATION: clear to auscultation bilaterally Cardio: COMMON NORMALS: no JVD, regular rhythm, S1 normal heart sound present, S2 normal heart sound present and No murmurs present (Cardio) RHYTHM: regular rhythm HEART SOUNDS: S1 normal heart sound present and S2 normal heart sound present GI: COMMON NORMALS: Normal to inspection, nondistended, normoactive bowel sounds present, Soft to palpation and non-tender PALPATION: Yes Soft to palpation Extremity: COMMON NORMALS: no joint enlargement and no pedal edema Neuro: COMMON NORMALS: moves all extremities SENSORIUM/ORIENTATION: Yes alert SPEECH: abnormal speech Details: garbled SENSORY EXAM: No Normal double simultaneous stimulation for sensation (Appears may have left-sided neglect) MOTOR EXAM: Other motor observations present (LUE weakness) OTHER: Inconsistently follows directions. Skin: COMMON NORMALS: no rashes or lesions noted GENERAL SKIN EXAM: no rashes or lesions noted Urinary Catheter Management: Saenz: Cath Placed During This Visit: yes Reason for Continuing Indwelling Catheter: Other Urinary Catheter Date of Insertion: 08/19/22 Urinary Catheter Time of Insertion: 22:55 Data 08/19/22 18:27 08/20/22 04:08 A&P Assessment and plan (1) Status epilepticus: So far without recurrence of seizure. Facial droop, left-sided weakness, patient may have left side neglect as well, although does not follow directions consis tently making assessment difficult. Left side focal deficits may be postictal. Appreciate neurology input. At this time no additional medication changes. Additional follow-up in office. Additional assessment by ST, PT, OT. Assessment also already obtained with carotid duplex, echocardiogram. Lipid panel, A1c. Transfer to medical floor. (2) Developmental disorder: (3) Generalized epilepsy: (4) Frontal lobe epilepsy: (5) Intellectual disability: Attestations Medical Necessity Statement*: Continue admission for cyst management after status epilepticus with prolonged postictal state. Coding Level of Care Code Acute Metal Framer for g Fwd Diagnoses Status epilepticus G40.901 Developmental disorder F89 Generalized epilepsy G40.309 Frontal lobe epilepsy G40.802 Intellectual disability F79
[2022-08-20 20:45] LABS: Estmated Average Glucose 108; Hemoglobin A1C 5.4 % (4.0-6.0)
[2022-08-20] MEDS: trazodone 100 mg Tablet PO (21:03)
[2022-08-20] MEDS: enoxaparin 40 mg/0.4 mL Syringe SUBCUT (21:41)
[2022-08-21] VITALS (7 sets, daily range): BP systolic 136–146; BP diastolic 81–88; PULSE 54–78; RESP 16–20; TEMP 36.4–36.7; O2SAT 97
[2022-08-21] MEDS: lacosamide 200 MG in sodium chloride 0.9% 50 ML 120 MG IV (11:12)
--- NOTE | 2022-08-21 19:42 | P.DS_ITS ---
Discharge Providers Date of Admission: 08/19/22 22:04 Date of Discharge: August 21, 2022 Attending Provider at Admission: Nelia Castillo MD Attending Provider at Discharge: Osmar Jimenez Primary Care Provider: NIRANJAN Drummond Diagnoses at Discharge Discharge Diagnosis (1) Status epilepticus: Status: Acute (2) Developmental disorder: Status: Acute (3) Generalized epilepsy: Status: Acute (4) Frontal lobe epilepsy: Status: Acute (5) Intellectual disability: Status: Chronic Reason for Visit Reason for Visit: SEIZURES/ UNCONCIOUS Hospital Course Hospital Course Pleasant 51-year-old gentleman with cognitive impairment, history of epilepsy, recurrent episodes of status epilepticus, despite optimization of antiepileptic regimen was readmitted in status. Seizure was broken with 4 mg Versed and EMS, additionally 12 mg Ativan, 3 g of Keppra which she received in ER with recommendation for also additional 100 mg of IV lacosamide. He is cared for at home by his mother and sister. His mother counseled his medications and states they have not missed any doses. He had no recurrence of seizure. After prolonged postictal state he was noted to have left side particularly upper extremity weakness, left-sided facial droop, left-sided neglect. These changes were felt to be postictal. Today with improving weakness on the left and improving facial droop, resolution of neglect. Additionally assessed initially with repeat CT which showed no bleeding or other large acute change, carotid duplex was unremarkable. Echocardiogram could not be interpreted due to poor windows. He otherwise did well, denies any complaints. He is difficult to understand, but is able to communicate to a limited extent and denies any complaints, wanting to go home to watch wrestling. Phenytoin level returned low at 0.8, instructions given to avoid giving the medication with meals spacing out by at least an hour before or after. Keppra level is pending. His Vimpat dose is adjusted up to 250 mg twice daily. Possible bedbugs seen in ER due to which was on isolation, discussed with case management and recommended pest control to assess his home. Physical Exam Const: COMMON NORMALS: alert GENERAL APPEARANCE: cooperative ORIENTATION/CONSCIOUSNESS: Yes awake HENMT: COMMON NORMALS: oropharynx normal Neck/C-Spine: COMMON NORMALS: no JVD Resp: COMMON NORMALS: normal respiratory effort and clear to auscultation bilaterally AUSCULTATION: clear to auscultation bilaterally Cardio: COMMON NORMALS: no JVD, regular rhythm, S1 normal heart sound present, S2 normal heart sound present and No murmurs present (Cardio) RHYTHM: regular rhythm HEART SOUNDS: S1 normal heart sound present and S2 normal heart sound present GI: COMMON NORMALS: Normal to inspection, nondistended, normoactive bowel sounds present, Soft to palpation and non-tender PALPATION: Yes Soft to palpation Extremity: COMMON NORMALS: no joint enlargement and no pedal edema Neuro: COMMON NORMALS: moves all extremities SENSORIUM/ORIENTATION: Yes a lert SPEECH: abnormal speech Details: garbled SENSORY EXAM: No Normal double simultaneous stimulation for sensation (Appears may have left-sided n eglect) MOTOR EXAM: Other motor observations present (Significantly improved LUE weakness) OTHER: Improving left facial droop Skin: COMMON NORMALS: no rashes or lesions noted GENERAL SKIN EXAM: no rashes or lesions noted Urinary Catheter Management: Saenz: Cath Placed During This Visit: yes Reason for Continuing Indwelling Catheter: Accurate Measurement of Urinary Output in Critically Ill Patients Urinary Catheter Date of Insertion: 08/19/22 Urinary Catheter Time of Insertion: 22:55 Discharge Data Studies Completed and Pending Completed Studies During Hospitalization Category Date Time Status CT head wo con* [id number] Routine Cat Scan 08/20/22 10:[address] head wo con* [id number] Stat Cat Scan 08/19/22 19:22 Completed XR chest 1V portable [id number] Stat Exams 08/19/22 17:34 Completed CV carotid duplex BI* [id number] Routine Ultrasound 08/20/22 12:20 Completed CV. echo w/w bubble cont [id number] Routine Ultrasound 08/20/22 12:20 Completed Pending at discharge Category Date Time Status KEPPRA [Levetiracetam Immunoassy] Routine Lab 08/19/22 18:27 Received Radiology Impressions Chest X-Ray 08/19/22 17:34 IMPRESSION: No acute findings. Head CT 08/20/22 10:36 IMPRESSION: Negative head CT. No hemorrhage or interval change since 08/19/2022 Laboratory Results WBC 14.4 10^3/uL (4.0-10.0) H 08/19/22 18:27 RBC 4.51 10^6/uL (4.1-5.3) 08/19/22 18: Hgb 13.8 g/dL (11.7-16.6) 08/19/22 18: Hct 46.4 % (42.0-52.0) 08/19/22 18: MCV 102.9 fl (80-94) H 08/19/22 18: MCH 30.6 pg (28.0-34.0) 08/19/22 18: MCHC 29.7 g/dL (30.0-36.0) L 08/19/22 18: RDW 13.6 % (12.1-15.1) 08/19/22 18: Plt Count 206 10^3/cmm (130-400) 08/19/22 18: MPV 11.9 fL (7.4-10.4) H 08/19/22 18: Neut % (Auto) 68.8 % 08/19/22 18: Lymph % (Auto) 24.3 % 08/19/22 18: [place] % (Auto) 5.4 % 08/19/22 18: Eos % (Auto) 0.8 % 08/19/22 18: Baso % (Auto) 0.2 % 08/19/22 18: Neut # (Auto) 9.89 10^3/uL (1.8-7.7) H 08/19/22 18: Lymph # (Auto) 3.5 10^3/uL (0.8-4.8) 08/19/22 18: [place] # (Auto) 0.8 10^3/uL (0.2-0.9) 08/19/22 18: Eos # (Auto) 0.1 10^3/uL (0.0-0.8) 08/19/22 18: Baso # (Auto) 0.0 10^3/uL (0.0-0.1) 08/19/22 18: Nucleated RBC % (auto) 0 % 08/19/22 18 Nucleated RBCs # 0.0 /100WBC 08/19/22 18: Sodium 139 mmol/L (136-145) 08/20/22 04:08 Potassium 3.5 mmol/L (3.5-5.1) 08/20/22 04:08 Chloride 104 mmol/L (98-107) 08/20/22 04:08 Carbon Dioxide 22 mmol/L (22-29) 08/20/22 04:08 Anion Gap 16.5 (5-19) 08/20/22 04:08 BUN 14 mg/dL (6-20) 08/20/22 04:08 Creatinine 0.5 mg/dL (0.7-1.2) L 08/20/22 04:08 GFR Calculation 176.0 mL/min (90-130) H 08/20/22 04:08 Glucose 71 mg/dL (65-115) 08/20/22 04:08 Estimat Average Glucose 108 08/19/22 18:27 Hemoglobin A1c 5.4 % (4.0-6.0) 08/19/22 18: Calculated Osmolality 287 mOsm/kg (285-295) 08/20/22 04:08 Calcium 8.5 mg/dL (8.5-10.5) 08/20/22 04:08 Phosphorus 3.2 mg/dL (2.5-4.5) 08/20/22 04:08 Magnesium 2.3 mg/dL (1.7-2.3) 08/20/22 04:08 Triglycerides 70 mg/dL (0-150) 08/20/22 04:08 Cholesterol 160 mg/dL (0-200) 08/20/22 04:08 LDL Cholesterol, Calc 84 mg/dL (50-129) 08/20/22 04:08 HDL Cholesterol 62 mg/dL (60-100) 08/20/22 04:08 LDL/HDL Ratio 1.35 RATIO (0.00-3.22) 08/20/22 04:08 Cholesterol/HDL Ratio 2.58 mg/dL (1.0-5.00) 08/20/22 04:08 Vitamin B12 291 pg/mL (232-1245) 08/19/22 18: TSH 1.43 uIU/mL (0.27-4.20) 08/19/22 18:27 Phenytoin 0.8 ug/mL (10-20) L 08/19/22 18:27 Ethyl Alcohol < 10 mg/dL (0-10) 08/19/22 18:27 Influenza Type A Ag negative (Negative) 12/21/22 19:37 Influenza Type B Ag negative (Negative) 08/19/22 19:37 SARS-CoV-2 Ag (Rapid) negative (Negative) 08/19/22 19:37 Vitals Last Vital Signs Temp 98.1 F 08/21/22 15:25 Pulse 78 08/21/22 15:25 Resp 16 08/21/22 15:25 BP 146/88 08/21/22 15:25 Pulse Ox 97 08/21/22 15:25 O2 Del Method 08/21/22 12:00 O2 Flow Rate 3 08/19/22 17:28 Discharge Plan Discharge Patient Disposition: Home Condition: Stable Prescriptions: New lacosamide 50 mg tablet 50 mg PO BID Qty: 180 0RF Rx Instructions: total 250mg BID Continued (DME) Compression hose 30/40 See Rx Instructions .Route .MEDSUPPLY Qty: 1 2RF Rx Instructions: Measure to fit A6531 (DME) Diabetic Shoes with 3 pairs of inserts See Rx Instructions .ROUTE .MEDSUPPLY Qty: 1 0RF Rx Instructions: As directed by HOME lacosamide [Vimpat] 200 mg tablet 200 mg PO BID 30 Days Qty: 60 5RF phenytoin 50 mg tablet,chewable See Rx Instructions .ROUTE .COMPLEX Qty: 270 5RF Dose Instruction: CHEW 4 TABLETS BY MOUTH EVERY 8 HOURS Rx Instructions: CHEW 5 TABLETS (250MG) BY MOUTH EVERY 8 HOURS (DME) Compression hose 18/30 See Rx Instructions Rx Instructions: Measure for size A6530 trazodone 100 mg tablet 100 mg PO BEDTIME levetiracetam 1,000 mg tablet 1,500 mg PO BID Rx Instructions: *TAKE IN MORNING AND EVENING* Discharge Orders: Discharge Order (Routine); Ordered 08/21/22 Ordered By: Osmar Jimenez Referrals: Amy Forrester MD [Physician] - 2 weeks Candi Latif FNP-C [Primary Care Provider] - 4-7 days Discharge Diet: As Directed Discharge Activity: Increase activity as tolerated and As per PT/OT instructions Patient Instructions: Phenytoin (By mouth), Epilepsy (GEN), Fall Prevention (GEN) Activity Restrictions/Additional Instructions: Do not give phenytoin together with food. Avoid any food 1 hour before and after phenytoin dose. Please increase lacosamide (Vimpat) dose to 250 mg twice a day. Continue dysphagia diet, minced and moist foods. Please have home assessed by pest control to assess for bedbugs and fumigate if necessary. Discharge Attestations Time Spent in Discharge Care*: greater than 30 min Status at Discharge: Cognitive status at discharge: moderately impaired cognition , Behavioral status at discharge: cooperative , Quality Metrics Clinical Quality Measures [ No reported AMI, CVA or VTE this stay] Coding Level of Care Code Acute Chg FW DC note Diagnoses Status epilepticus G40.901 Developmental disorder F89 Generalized epilepsy G40.309 Frontal lobe epilepsy G40.802 Intellectual disability F79
[2022-08-22 10:35] LABS: Levetiracetam Immunoassy <2.0 mcg/mL (6.0-46.0)
== END 2022-08-21 15:30 | disposition home or self-care (01) | DRG 101 ==
LOC: ER 21:50 → ICU 22:04
PROVIDERS: Admitting Provider Internal Medicine; Emergency Provider Emergency Medicine; PCP Nurse Practitioner; Visit Provider Internal Medicine
DX: G40.401 Other generalized epilepsy and epileptic syndromes, not intractable, with status epilepticus (principal); Z68.41 Body mass index [BMI] 40.0-44.9, adult; F79 Unspecified intellectual disabilities; Z79.891 Long term (current) use of opiate analgesic; I10 Essential (primary) hypertension; E66.01 Morbid (severe) obesity due to excess calories; R29.810 Facial weakness; R53.1 Weakness
CPT/HCPCS: 36415; 51702; 70450; 71045; 80048; 80061; 80177; 80185; 80307; 82607; 83036; 83735; 84100; 84443; 85025; 87426; 87804; 92523; 92526; 92610; 93005; 93880; 96365; 96366; 96367; 96372; 96375; 97116; 97161; 97167; 97530; 99285; C8929; C9254; J1165; J1650; J1953; J2060; J7030

== ENCOUNTER 2022-09-01 19:41 | Inpatient (IN) | payer MEDICARE, MEDICAID, SELFPAY ==
[2022-09-01 19:46] VITALS: BP 159/92; PULSE 94; RESP 20; TEMP 36.4; O2SAT 97
--- NOTE | 2022-09-01 20:33 | XRR_ITS ---
PROCEDURE INFORMATION: Exam: XR Abdomen Exam date and time: 09/01/2022 9:26 PM Age: 51 years old Clinical indication: Abdominal tenderness and fever; Patient HX: Fever with abd distention and diarrhea. ; Additional info: Abdominal pain and distention TECHNIQUE: Imaging protocol: Radiologic exam of the abdomen. Views: 2 Views. Upright and supine views. COMPARISON: CR XR KUB [id number] 04/28/2017 2:20 PM FINDINGS: Gastrointestinal tract: Multiple dilated loops of colon measuring up to at least 10 cm, perhaps reflecting obstruction, ileus or Checotah's syndrome are also consideration, CT could further evaluate this. Intraperitoneal space: Normal. No free air. Bones/joints: Unremarkable for age. XR/XR abdomen min 2V [id number] IMPRESSION: Multiple dilated loops of colon measuring up to at least 10 cm, perhaps reflecting obstruction, ileus or Checotah's syndrome are also consideration, CT could further evaluate this.
--- NOTE | 2022-09-01 20:33 | XRR_ITS ---
PROCEDURE INFORMATION: Exam: XR Chest Exam date and time: 09/01/2022 9:26 PM Age: 51 years old Clinical indication: Fever and shortness of breath; Patient HX: SOB with fever; Additional info: Shortness of breath and cough TECHNIQUE: Imaging protocol: Radiologic exam of the chest. Views: 2 views. COMPARISON: CR (CHEST, ) 08/19/2022 5:39 PM FINDINGS: Lungs: Unremarkable. No consolidation. Pleural spaces: Unremarkable. No pleural effusion. No pneumothorax. Heart/Mediastinum: Unremarkable. No cardiomegaly. Bones/joints: Unremarkable. Gastrointestinal tract: Markedly dilated loop of bowel in the left abdomen measuring to 18 cm appears to reflect colon, consider further evaluation a CT scan. XR/XR chest 2V* [id number] IMPRESSION: Markedly dilated loop of bowel in the left abdomen measuring to 18 cm appears to reflect colon, consider further evaluation a CT scan.
[2022-09-01 21:04] LABS: Add Urine Microscopic? YES; Bilirubin Urine 1+ (Negative); Blood Urine Neg (Negative); Glucose Urine UA 1+ (Normal); Ketones Urine Negative (Negative); Leukocyte Esterase Urine Negative (Negative); Nitrate Urine Negative (Negative); Protein Urine 1+ (Negative); Specific Gravity, Urine 1.025 (1.005-1.030); Urine Appearance SL Hazy (CLEAR); Urine Color Amber (Yellow); Urobilinogen Urine 4 mg/dL (Negative); pH Urine 5 (5-7)
[2022-09-01 21:06] LABS: Amorphous Sediment Urine 2+ /hpf; Bacteria Urine 1+ /hpf; Hyaline Casts Urine 0-4 /lpf; Mucus Urine 2+ /hpf; RBC Urine 0-4 /hpf (0-2); Transitional Epi Cells Urine 0-4 /hpf
[2022-09-01 21:07] LABS: Influenza A by IFA negative (Negative); Influenza B by IFA negative (Negative)
[2022-09-01 21:07] LABS: Add Urine Culture? No
[2022-09-01 21:08] LABS: SARS Covid-2 Antigen negative (Negative)
[2022-09-01 21:20] LABS: Basophils # 0.1 10^3/uL (0.0-0.1); Basophils % 0.3 %; Eosinophils # 0.1 10^3/uL (0.0-0.8); Eosinophils % 0.6 %; Hematocrit 39.9 % (42.0-52.0); Hemoglobin 13.9 g/dL (11.7-16.6); Lymphocytes # 1.7 10^3/uL (0.8-4.8); Lymphocytes % 8.5 %; Mean Corpuscular HGB Conc 34.8 g/dL (30.0-36.0); Mean Corpuscular Hemoglobin 32.3 pg (28.0-34.0); Mean Corpuscular Volume 92.8 fl (80-94); Mean Platelet Volume 10.3 fL (7.4-10.4); Monocytes # 2.7 10^3/uL (0.2-0.9); Monocytes % 13.6 %; Neutrophils # 14.96 10^3/uL (1.8-7.7); Neutrophils % 76.5 %; Nucleated Red Blood Cells % 0 %; Platelet Count 233 10^3/cmm (130-400); Red Cell Distribution Width 13.5 % (12.1-15.1); White Blood Count 19.6 10^3/uL (4.0-10.0)
[2022-09-01 21:45] LABS: Alanine Aminotransferase 11 U/L (0-41); Albumin Level 3.6 g/dL (3.5-5.2); Alkaline Phosphatase 81 U/L (40-130); Anion Gap 14.7 (5-19); Aspartate Amino Transferase 17 U/L (0-40); Blood Urea Nitrogen 19 mg/dL (6-20); Calcium 8.4 mg/dL (8.5-10.5); Carbon Dioxide 24 mmol/L (22-29); Chloride 103 mmol/L (98-107); Glomerular Filtration Rate 142.6 mL/min (90-130); Glucose 151 mg/dL (65-115); Osmolality Calculated 293 mOsm/kg (285-295); Sodium 139 mmol/L (136-145); Total Bilirubin 0.6 mg/dL (0.15-1.2); Total Protein 6.6 g/dL (6.6-8.7)
--- NOTE | 2022-09-01 21:50 | W.ED.FEVER ---
Documented by User: NIRANJAN Lopez 09/01/22 21:57 HPI - Fever General: Chief Complaint: Fever Stated Complaint: FEVER Time Seen by Provider: 09/01/22 19:54 History of Present Illness: Patient is in today via ambulance. Patient family member reports that he has been having a fever with a lot of congestion since Wednesday. Patient called the ambulance today he said. Family reports that he does have a history of a seizure disorder and they were concerned with the fever that he would start to have seizures again. Family offers that the patient has been coughing a lot and had a lot of congestion but also that his abdomen is getting bigger and bigger. Family offers that patient has had a bowel movement. Patient is very difficult to understand with developmental delays. Speech is difficult to understand which is typical per family. Associated symptoms: Reports abdominal pain, chills, nasal congestion and nausea; Deny flank pain, chest pain or dysuria Review of Systems Const: Reports: fever(s), chills, body aches, change in appetite and fatigue ENMT: Reports: nasal discharge and nasal congestion; Denies: throat pain Card: Denies: chest pain, palpitations or irregular heart rhythm Resp: Reports: dyspnea and non-productive cough GI: Reports: abdominal pain, nausea and bloating : Denies: flank pain, difficulty urinating or dysuria PFSH ED PFSH: Medical History Cellulitis of oral soft tissues Endotracheally intubated Essential hypertension Frontal lobe epilepsy Generalized epilepsy Hypertension Intellectual disability Leukocytosis Morbid obesity Nonhealing nonsurgical wound Peripheral vascular disease Seizure Status epilepticus Venous stasis dermatitis Surgical History S/P vein stripping Family History Father Cancer Lung cancer Mother CAD (coronary artery disease) Other Diabetes Heart disease Hypertension Denies family history of Stroke Social History Smoking and tobacco status: never smoked Second hand smoke exposure: No Smoking risk assessment/counseling performed?: No Alcohol intake: never Desire information about alcohol rehabilitation?: No Counseling given: No Desire information about substance/drug rehabilitation?: No Counseling given: No Caregiver/support person: Yes Lives independently: No Household members: family Marital status: Single service: No Current occupational status: disabled History of recent travel: No Current gender identity: Male Physical Exam Const: COMMON NORMALS: alert OTHER: Patient seems alert and oriented to person and situation. Speech is difficult to understand making it difficult to fully assess orientation. Patient appears to be short of breath HENMT: COMMON NORMALS: EAC's normal EXTERNAL AUDITORY CANAL: EAC's normal TYMPANIC MEMBRANE: unable to visualize TM (Unable to visualize bilateral related to cerumen) THROAT: uvula midline and postnasal drainage Resp: EFFORT & INSPECTION: Yes symmetric chest movement and Yes tachypneic AUSCULTATION: diminished lung sounds diffuse Cardio: COMMON NORMALS: S1 normal heart sound present and S2 normal heart sound present HEART SOUNDS: S1 normal heart sound present and S2 normal heart sound present GI: INSPECTION: Yes abdominal distension AUSCULTATION: Yes Hypoactive bowel sounds present PALPATION: Yes Firmness to palpation present (GI), Yes Tenderness to palpation present (GI) Details: other (Slight generalized tenderness) and No Guarding due to palpation present (GI) : COMMON NORMALS: Yes no CVA tenderness BLADDER/KIDNEY EXAM: Yes no CVA tenderness Back/Pelvis: COMMON NORMALS: no CVA tenderness Neuro: SENSORIUM/ORIENTATION: Yes alert OTHER: Patient is alert. Does appear to have cognitive and motor delays. Family reports that he seems consistent with his baseline cognitively and consistent with his baseline motor function Course Vital Signs: Vital signs: Vital Signs Temperature 99.3 F 09/01/22 21:52 Pulse Rate 86 09/01/22 21:52 Respiratory Rate 15 09/01/22 21:52 Blood Pressure 137/89 09/01/22 21:52 Pulse Oximetry 96 09/01/22 21:52 Oxygen Delivery Me thod 09/01/22 21:52 MDM - Fever Lab Data 09/01/22 21:15 09/01/22 21:15 Radiology Impressions Abdomen X-Ray 09/01/22 20:33 IMPRESSION: Multiple dilated loops of colon measuring up to at least 10 cm, perhaps reflecting obstruction, ileus or Yuki's syndrome are also consideration, CT could further evaluate this. Chest X-Ray 09/01/22 20:33 IMPRESSION: Markedly dilated loop of bowel in the left abdomen measuring to 18 cm appears to reflect colon, consider further evaluation a CT scan. Abdomen/Pelvis CT 09/01/22 22:00 IMPRESSION: 1. 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 In the left lower quadrant in the region of the distal descending/sigmoid colon some focal narrowing of the colon is seen with surrounding edema, which appears proximal to the more markedly dilated loops of bowel, suggesting this may reflect an area inflammation or possibly even ischemia, please correlate clinically. The cause of the bowel dilation is felt unlikely reflect a sigmoid volvulus as no focal point of mesenteric twisting is seen. 2. Cholelithiasis. 3. Bilateral renal cysts, negative for follow-up advised. 4. Perinephric edema bilaterally likely related to renal insufficiency. COMMENTS: Consistent with the [place] [employer]'s Incidental Findings Committee white paper (J Am Lily Radiol 2018): Any incidental renal lesion less than 1 cm or classified as too small to characterize, or any incidental cystic renal lesion characterized as simple-appearing, is likely benign. No follow-up imaging is recommended for these lesions per consensus recommendations based on imaging criteria. Laboratory Results WBC 19.6 10^3/uL (4.0-10.0) H 09/01/22 21:15 RBC 4.30 10^6/uL (4.1-5.3) 09/01/22 21:15 Hgb 13.9 g/dL (11.7-16.6) 09/01/22 21:15 Hct 39.9 % (42.0-52.0) L 09/01/22 21:15 MCV 92.8 fl (80-94) 09/01/22 21:15 MCH 32.3 pg (28.0-34.0) 09/01/22 21:15 MCHC 34.8 g/dL (30.0-36.0) 09/01/22 21:15 RDW 13.5 % (12.1-15.1) 09/01/22 21:15 Plt Count 233 10^3/cmm (130-400) 09/01/22 21:15 MPV 10.3 fL (7.4-10.4) 09/01/22 21:15 Neut % (Auto) 76.5 % 09/01/22 21:15 Lymph % (Auto) 8.5 % 09/01/22 21:15 [place] % (Auto) 13.6 % 09/01/22 21:15 Eos % (Auto) 0.6 % 09/01/22 21:15 Baso % (Auto) 0.3 % 09/01/22 21:15 Neut # (Auto) 14.96 10^3/uL (1.8-7.7) H 09/01/22 21:15 Lymph # (Auto) 1.7 10^3/uL (0.8-4.8) 09/01/22 21:15 [place] # (Auto) 2.7 10^3/uL (0.2-0.9) H 09/01/22 21:15 Eos # (Auto) 0.1 10^3/uL (0.0-0.8) 09/01/22 21:15 Baso # (Auto) 0.1 10^3/uL (0.0-0.1) 09/01/22 21:15 Nucleated RBC % (auto) 0 % 09/01/22 21:15 Nucleated RBCs # 0.0 /100WBC 09/01/22 21:15 Sodium 139 mmol/L (136-145) 09/01/22 21:15 Potassium 2.7 mmol/L (3.5-5.1) L* 09/01/22 21:15 Chloride 103 mmol/L (98-107) 09/01/22 21:15 Carbon Dioxide 24 mmol/L (22-29) 09/01/22 21:15 Anion Gap 14.7 (5-19) 09/01/22 21:15 BUN 19 mg/dL (6-20) 09/01/22 21:15 Creatinine 0.6 mg/dL (0.7-1.2) L 09/01/22 21:15 GFR Calculation 142.6 mL/min (90-130) H 09/01/22 21:15 Glucose 151 mg/dL (65-115) H 09/01/22 21:15 Calculated Osmolality 293 mOsm/kg (285-295) 09/01/22 21:15 Calcium 8.4 mg/dL (8.5-10.5) L 09/01/22 21:15 Total Bilirubin 0.6 mg/dL (0.15-1.2) 09/01/22 21:15 AST 17 U/L (0-40) 09/01/22 21:15 ALT 11 U/L (0-41) 09/01/22 21:15 Alkaline Phosphatase 81 U/L (40-130) 09/01/22 21:15 Total Protein 6.6 g/dL (6.6-8.7) 09/01/22 21:15 Albumin 3.6 g/dL (3.5-5.2) 09/01/22 21:15 Globulin 3.0 g/dL (1.3-4.6) 09/01/22 21:15 Urine Color Shabnam (Yellow) 09/01/22 20:30 Urine Appearance Sl hazy (CLEAR) A 09/01/22 20:30 Urine pH 5 (5-7) 09/01/22 20:30 Ur Specific [place] 1.025 (1.005-1.030) 09/01/22 20:30 Urine Protein 1+ (Negative) H 09/01/22 20:30 Urine Glucose (UA) 1+ (Normal) H 09/01/22 20:30 Urine Ketones Negative (Negative) 09/01/22 20:30 Urine Blood Neg (Negative) 09/01/22 20:30 Urine Nitrate Negative (Negative) 09/01/22 20:30 Urine Bilirubin 1+ (Negative) H 09/01/22 20:30 Urine Urobilinogen 4 mg/dL (Negative) H 09/01/22 20:30 Ur Leukocyte Esterase Negative (Negative) 09/01/22 20:30 Urine RBC 0-4 /hpf (0-2) H 09/01/22 20:30 Urine WBC 5-10 /hpf (0-5) H 09/01/22 20:30 Ur Squamous Epith Cells 5-10 /hpf (0-5) H 09/01/22 20:30 Ur Transition Epith Cell 0-4 /hpf 09/01/22 20:30 Amorphous Sediment 2+ /hpf 09/01/22 20:30 Urine Bacteria 1+ /hpf (NONE) H 09/01/22 20:30 Hyaline Casts 0-4 /lpf H 09/01/22 20:30 Fine Granular Casts 5-10 /lpf H 09/01/22 20:30 Urine Mucus 2+ /hpf 09/01/22 20:30 Influenza Type A Ag negative (Negative) 09/01/22 20:26 Influenza Type B Ag negative (Negative) 09/01/22 20:26 SARS-CoV-2 Ag (Rapid) negative (Negative) 09/01/22 20:26 Discharge Plan Discharge Patient Disposition: Admitted As Inpatient Clinical Impression: Yuki's syndrome, Abdominal pain Condition: Stable Prescriptions: No Action (DME) Compression hose 30/40 See Rx Instructions .Route .MEDSUPPLY Qty: 1 2RF Rx Instructions: Measure to fit A6531 (DME) Diabetic Shoes with 3 pairs of inserts See Rx Instructions .ROUTE .MEDSUPPLY Qty: 1 0RF Rx Instructions: As directed by HOME lacosamide [Vimpat] 200 mg tablet 200 mg PO BID 30 Days Qty: 60 5RF phenytoin 50 mg tablet,chewable See Rx Instructions .ROUTE .COMPLEX Qty: 270 5RF Dose Instruction: CHEW 4 TABLETS BY MOUTH EVERY 8 HOURS Rx Instructions: CHEW 5 TABLETS (250MG) BY MOUTH EVERY 8 HOURS (DME) Compression hose 18/30 See Rx Instructions Rx Instructions: Measure for size A6530 trazodone 100 mg tablet 100 mg PO BEDTIME levetiracetam 1,000 mg tablet 1,500 mg PO BID Rx Instructions: *TAKE IN MORNING AND EVENING* lacosamide 50 mg tablet 50 mg PO BID Qty: 180 0RF Rx Instructions: total 250mg BID Referrals: Candi Latif, INTERNATIONAL S[employer]CING MANAGER-C [Primary Care Provider] - Coding Level of Care Code ED Expeller Worker for Chg Fwd Exam Detailed Documented by User: Sulma Butler MD 09/01/22 23:58 HPI - Fever General: Chief Complaint: Fever Stated Complaint: FEVER Time Seen by Provider: 09/01/22 19:54 PFSH ED PFSH: Medical History Cellulitis of oral soft tissues Endotracheally intubated Essential hypertension Frontal lobe epilepsy Generalized epilepsy Hypertension Intellectual disability Leukocytosis Morbid obesity Nonhealing nonsurgical wound Peripheral vascular disease Seizure Status epilepticus Venous stasis dermatitis Surgical History S/P vein stripping Family History Father Cancer Lung cancer Mother CAD (coronary artery disease) Other Diabetes Heart disease Hypertension Denies family history of Stroke Social History Smoking and tobacco status: never smoked Second hand smoke exposure: No Smoking risk assessment/counseling performed?: No Alcohol intake: never Desire information about alcohol rehabilitation?: No Counseling given: No Desire information about substance/drug rehabilitation?: No Counseling given: No Caregiver/support person: Yes Lives independently: No Household members: family Marital status: Single service: No Current occupational status: disabled History of recent travel: No Current gender identity: Male Course Vital Signs: Vital signs: Vital Signs Temperature 99.3 F 09/01/22 21:52 Pulse Rate 86 09/01/22 21:52 Respiratory Rate 15 09/01/22 21:52 Blood Pressure 137/89 09/01/22 21:52 Pulse Oximetry 96 09/01/22 21:52 Oxygen Delivery Me thod 09/01/22 21:52 MDM - Fever Medical Decision Making Patient presents with abdominal pain CT does show Yuki syndrome patient was seen down in the ER by the surgeon we will start a rectal tube he is consulted will admit to hospitalist will start IV antibiotics surgeons again to follow to see if the rectal tube does decompress. Patient has been stable here with normal blood pressure. Lab Data 09/01/22 21:15 09/01/22 21:15 Radiology Impressions Abdomen X-Ray 09/01/22 20:33 IMPRESSION: Multiple dilated loops of colon measuring up to at least 10 cm, perhaps reflecting obstruction, ileus or Yuki's syndrome are also consideration, CT could further evaluate this. Chest X-Ray 01/03/23 20:33 IMPRESSION: Markedly dilated loop of bowel in the left abdomen measuring to 18 cm appears to reflect colon, consider further evaluation a CT scan. Abdomen/Pelvis CT 09/01/22 22:00 IMPRESSION: 1. 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 In the left lower quadrant in the region of the distal descending/sigmoid colon some focal narrowing of the colon is seen with surrounding edema, which appears proximal to the more markedly dilated loops of bowel, suggesting this may reflect an area inflammation or possibly even ischemia, please correlate clinically. The cause of the bowel dilation is felt unlikely reflect a sigmoid volvulus as no focal point of mesenteric twisting is seen. 2. Cholelithiasis. 3. Bilateral renal cysts, negative for follow-up advised. 4. Perinephric edema bilaterally likely related to renal insufficiency. COMMENTS: Consistent with the [place] [employer]'s Incidental Findings Committee white paper (J Am Lily Radiol 2018): Any incidental renal lesion less than 1 cm or classified as too small to characterize, or any incidental cystic renal lesion characterized as simple-appearing, is likely benign. No follow-up imaging is recommended for these lesions per consensus recommendations based on imaging criteria. Laboratory Results WBC 19.6 10^3/uL (4.0-10.0) H 09/01/22 21:15 RBC 4.30 10^6/uL (4.1-5.3) 09/01/22 21:15 Hgb 13.9 g/dL (11.7-16.6) 09/01/22 21:15 Hct 39.9 % (42.0-52.0) L 09/01/22 21:15 MCV 92.8 fl (80-94) 09/01/22 21:15 MCH 32.3 pg (28.0-34.0) 09/01/22 21:15 MCHC 34.8 g/dL (30.0-36.0) 09/01/22 21:15 RDW 13.5 % (12.1-15.1) 09/01/22 21:15 Plt Count 233 10^3/cmm (130-400) 09/01/22 21:15 MPV 10.3 fL (7.4-10.4) 09/01/22 21:15 Neut % (Auto) 76.5 % 09/01/22 21:15 Lymph % (Auto) 8.5 % 09/01/22 21:15 [place] % (Auto) 13.6 % 09/01/22 21:15 Eos % (Auto) 0.6 % 09/01/22 21:15 Baso % (Auto) 0.3 % 09/01/22 21:15 Neut # (Auto) 14.96 10^3/uL (1.8-7.7) H 09/01/22 21:15 Lymph # (Auto) 1.7 10^3/uL (0.8-4.8) 09/01/22 21:15 [place] # (Auto) 2.7 10^3/uL (0.2-0.9) H 09/01/22 21:15 Eos # (Auto) 0.1 10^3/uL (0.0-0.8) 09/01/22 21:15 Baso # (Auto) 0.1 10^3/uL (0.0-0.1) 09/01/22 21:15 Nucleated RBC % (auto) 0 % 09/01/22 21:15 Nucleated RBCs # 0.0 /100WBC 09/01/22 21:15 Sodium 139 mmol/L (136-145) 09/01/22 21:15 Potassium 2.7 mmol/L (3.5-5.1) L* 09/01/22 21:15 Chloride 103 mmol/L (98-107) 09/01/22 21:15 Carbon Dioxide 24 mmol/L (22-29) 09/01/22 21:15 Anion Gap 14.7 (5-19) 09/01/22 21:15 BUN 19 mg/dL (6-20) 09/01/22 21:15 Creatinine 0.6 mg/dL (0.7-1.2) L 09/01/22 21:15 GFR Calculation 142.6 mL/min (90-130) H 09/01/22 21:15 Glucose 151 mg/dL (65-115) H 09/01/22 21:15 Calculated Osmolality 293 mOsm/kg (285-295) 09/01/22 21:15 Calcium 8.4 mg/dL (8.5-10.5) L 09/01/22 21:15 Total Bilirubin 0.6 mg/dL (0.15-1.2) 09/01/22 21:15 AST 17 U/L (0-40) 09/01/22 21:15 ALT 11 U/L (0-41) 09/01/22 21:15 Alkaline Phosphatase 81 U/L (40-130) 09/01/22 21:15 Total Protein 6.6 g/dL (6.6-8.7) 09/01/22 21:15 Albumin 3.6 g/dL (3.5-5.2) 09/01/22 21:15 Globulin 3.0 g/dL (1.3-4.6) 09/01/22 21:15 Urine Color Shabnam (Yellow) 09/01/22 20:30 Urine Appearance Sl hazy (CLEAR) A 09/01/22 20:30 Urine pH 5 (5-7) 09/01/22 20:30 Ur Specific [place] 1.025 (1.005-1.030) 09/01/22 20:30 Urine Protein 1+ (Negative) H 09/01/22 20:30 Urine Glucose (UA) 1+ (Normal) H 09/01/22 20:30 Urine Ketones Negative (Negative) 09/01/22 20:30 Urine Blood Neg (Negative) 09/01/22 20:30 Urine Nitrate Negative (Negative) 09/01/22 20:30 Urine Bilirubin 1+ (Negative) H 09/01/22 20:30 Urine Urobilinogen 4 mg/dL (Negative) H 09/01/22 20:30 Ur Leukocyte Esterase Negative (Negative) 09/01/22 20:30 Urine RBC 0-4 /hpf (0-2) H 09/01/22 20:30 Urine WBC 5-10 /hpf (0-5) H 09/01/22 20:30 Ur Squamous Epith Cells 5-10 /hpf (0-5) H 09/01/22 20:30 Ur Transition Epith Cell 0-4 /hpf 09/01/22 20:30 Amorphous Sediment 2+ /hpf 09/01/22 20:30 Urine Bacteria 1+ /hpf (NONE) H 09/01/22 20:30 Hyaline Casts 0-4 /lpf H 09/01/22 20:30 Fine Granular Casts 5-10 /lpf H 09/01/22 20:30 Urine Mucus 2+ /hpf 09/01/22 20:30 Influenza Type A Ag negative (Negative) 09/01/22 20:26 Influenza Type B Ag negative (Negative) 09/01/22 20:26 SARS-CoV-2 Ag (Rapid) negative (Negative) 09/01/22 20:26 Discharge Plan Discharge Patient Disposition: Admitted As Inpatient Clinical Impression: Teague's syndrome, Abdominal pain Condition: Stable Prescriptions: No Action (DME) Compression hose 30/40 See Rx Instructions .Route .MEDSUPPLY Qty: 1 2RF Rx Instructions: Measure to fit A6531 (DME) Diabetic Shoes with 3 pairs of inserts See Rx Instructions .ROUTE .MEDSUPPLY Qty: 1 0RF Rx Instructions: As directed by HOME lacosamide [Vimpat] 200 mg tablet 200 mg PO BID 30 Days Qty: 60 5RF phenytoin 50 mg tablet,chewable See Rx Instructions .ROUTE .COMPLEX Qty: 270 5RF Dose Instruction: CHEW 4 TABLETS BY MOUTH EVERY 8 HOURS Rx Instructions: CHEW 5 TABLETS (250MG) BY MOUTH EVERY 8 HOURS (DME) Compression hose 18/30 See Rx Instructions Rx Instructions: Measure for size A6530 trazodone 100 mg tablet 100 mg PO BEDTIME levetiracetam 1,000 mg tablet 1,500 mg PO BID Rx Instructions: *TAKE IN MORNING AND EVENING* lacosamide 50 mg tablet 50 mg PO BID Qty: 180 0RF Rx Instructions: total 250mg BID Referrals: Candi Latif, INTERNATIONAL SOURCING MANAGER-C [Primary Care Provider] - Coding Level of Care Code ED Expeller Worker for Chg Fwd Exam Detailed
[2022-09-01 21:52] VITALS: BP 137/89; PULSE 86; RESP 15; TEMP 37.4; O2SAT 96
[2022-09-01 21:59] LABS: Potassium 2.7 mmol/L (3.5-5.1)
--- NOTE | 2022-09-01 22:00 | CTR_ITS ---
PROCEDURE INFORMATION: Exam: CT Abdomen And Pelvis With Contrast Exam date and time: 09/01/2022 10:31 PM Age: 51 years old Clinical indication: Bloating and fever; Abdominal pain; Generalized; Additional info: Abd pain TECHNIQUE: Imaging protocol: Computed tomography of the abdomen and pelvis with contrast. Radiation optimization: All CT scans at this facility use at least one of these dose optimization techniques: automated exposure control; mA and/or kV adjustment per patient size (includes targeted exams where dose is matched to clinical indication); or iterative reconstruction. Contrast material: OMNIPAQUE 350; Contrast volume: 95 ml; Contrast route: INTRAVENOUS (IV); COMPARISON: CR (ABDOMEN, ) 09/01/2022 9:26 PM RADIATION DOSE METRICS: Total DLP (mGy-cm): 1431.13 FINDINGS: Liver: Normal. No mass. Gallbladder and bile ducts: Cholelithiasis. Pancreas: Normal. No ductal dilation. Spleen: Normal. No splenomegaly. Adrenal glands: Normal. No mass. Kidneys and ureters: Bilateral renal cysts, negative for follow-up advised. Perinephric edema bilaterally likely related to renal insufficiency. Stomach and bowel: Markedly dilated loop of sigmoid colon measuring up to nearly 15 cm along with diffuse lesser dilation of the colon duct more proximally, with an apparent transitional point of narrowing seen in the distal sigmoid colon where fluid is seen in the lumen with narrowing of the lumen without focal obstructing lesion suggesting the dilation may be secondary to underlying Atlas syndrome as no mechanical point of obstruction is seen in this area. In the left lower quadrant in the region of the distal descending/sigmoid colon some focal narrowing of the colon is seen with surrounding edema, which appears proximal to the more markedly dilated loops of bowel, suggesting this may reflect an area inflammation or possibly even ischemia, please correlate clinically. The cause of the bowel dilation is felt unlikely reflect a sigmoid volvulus as no focal point of mesenteric twisting is seen. Appendix: No evidence of appendicitis. Intraperitoneal space: Unremarkable. No free air. No significant fluid collection. Vasculature: Unremarkable. No abdominal aortic aneurysm. Lymph nodes: Unremarkable. No enlarged lymph nodes. Urinary bladder: Unremarkable as visualized. Reproductive: Unremarkable as visualized. Bones/joints: Unremarkable. No acute fracture. Soft tissues: Unremarkable. CT/CT abdomen pelvis w con* [id number] IMPRESSION: 1. 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 In the left lower quadrant in the region of the distal descending/sigmoid colon some focal narrowing of the colon is seen with surrounding edema, which appears proximal to the more markedly dilated loops of bowel, suggesting this may reflect an area inflammation or possibly even ischemia, please correlate clinically. The cause of the bowel dilation is felt unlikely reflect a sigmoid volvulus as no focal point of mesenteric twisting is seen. 2. Cholelithiasis. 3. Bilateral renal cysts, negative for follow-up advised. 4. Perinephric edema bilaterally likely related to renal insufficiency. COMMENTS: Consistent with the [employer]'s Incidental Findings Committee white paper (J Am Lily Radiol 2018): Any incidental renal lesion less than 1 cm or classified as too small to characterize, or any incidental cystic renal lesion characterized as simple-appearing, is likely benign. No follow-up imaging is recommended for these lesions per consensus recommendations based on imaging criteria.
--- NOTE | 2022-09-01 23:56 | PM.CONSULT ---
Providers/Reason For Consult Consulting Physician/Specialty*: Dr. Agustín Anand, General Surgery Reason for Consult*: Colonic distention Requesting Physician: Dr. Sulma Butler Primary Care Provider: NIRANJAN Drummond History of Present Illness History of Present Illness Jaziel Willis is a 51 year old male with history of intellectual disability on antiepileptics who presents to ED with progressive abdominal distention since this morning. Family reports patient has had loose bowel movements recently with last BM yesterday. Patient denies discomfort. No prior abdominal surgery. No prior colonoscopy. Review of Systems General: Reports: 10 or more systems reviewed and unremarkable except in HPI and below GI: Reports: diarrhea (Yesterday) and bloating (Today) Medications/Allergies Home Medications Medication Instructions Recorded Confirmed Last Taken Type Compression hose #1 ea 09/21/20 08/20/22 Unknown Rx Compression hose 07/13/21 08/20/22 Unknown History Diabetic Shoes with 3 pairs of #1 ea 03/23/22 08/20/22 Unknown Rx inserts lacosamide 200 mg tablet (Vimpat) 200 mg PO BID 1 month #60 tabs 06/09/22 08/20/22 Unknown Rx phenytoin 50 mg chewable tablet See Rx Instructions .Route 06/19/22 08/20/22 Unknown Rx .COMPLEX #270 tabs levetiracetam 1,000 mg tablet 1,500 mg PO BID 08/20/22 08/20/22 Unknown History trazodone 100 mg tablet 100 mg PO BEDTIME 08/20/22 08/20/22 Unknown History lacosamide 50 mg tablet 50 mg PO BID #180 tabs 08/21/22 Unknown Rx Allergies Allergy/AdvReac Type Severity Reaction Status Date / Time No Known Allergies Allergy Verified 09/01/22 19:51 Additional Medication Information FAmily reports patient has not taken all of his nightly antiepileptics this evening PFSH Acute PFSH: Medical History Cellulitis of oral soft tissues Endotracheally intubated Essential hypertension Frontal lobe epilepsy Generalized epilepsy Hypertension Intellectual disability Leukocytosis Morbid obesity Nonhealing nonsurgical wound Peripheral vascular disease Seizure Status epilepticus Venous stasis dermatitis Surgical History S/P vein stripping Family History Father Cancer Lung cancer Mother CAD (coronary artery disease) Other Diabetes Heart disease Hypertension Denies family history of Stroke Social History Smoking and tobacco status: never smoked Second hand smoke exposure: No Smoking risk assessment/counseling performed?: No Alcohol intake: never Desire information about alcohol rehabilitation?: No Counseling given: No Desire information about substance/drug rehabilitation?: No Counseling given: No Caregiver/support person: Yes Lives independently: No Household members: family Marital status: Single service: No Current occupational status: disabled History of recent travel: No Current gender identity: Male Vitals/I&O/Wt Last Vital Signs Temp 99.3 F 09/01/22 21:52 Pulse 86 09/01/22 21:52 Resp 15 09/01/22 21:52 BP 137/89 09/01/22 21:52 Pulse Ox 96 09/01/22 21:52 O2 Del Method 09/01/22 21:52 Physical Exam Const: COMMON NORMALS: no acute distress, alert and well nourished EXAM LIMITATIONS: altered mental status (at baseline intellectual disability per family at bedside) and language barrier (limited to yes/no due to intellectual disability) GENERAL APPEARANCE: cooperative and well kempt ORIENTATION/CONSCIOUSNESS: Yes awake HENMT: COMMON NORMALS: normocephalic, atraumatic and moist oral mucous membranes HEAD & SCALP: normocephalic and atraumatic Eye: COMMON NORMALS: EOMs intact bilaterally GENERAL EYE: appearance normal, both eyes and all related structures Neck/C-Spine: COMMON NORMALS: supple GENERAL: Yes normal visual inspection Chest: CHEST: Yes Symmetrical chest wall rise Resp: COMMON NORMALS: normal respiratory effort and No use of accessory muscles Cardio: COMMON NORMALS: regular rate and regular rhythm RATE: regular rate RHYTHM: regular rhythm PERIPHERAL PULSES: radial pulses present GI: COMMON NORMALS: Soft to palpation INSPECTION: Yes abdominal distension (Significant) PALPATION: Yes Soft to palpation PERCUSSION: tympanic to percussion Extremity: COMMON NORMALS: normal to inspection Neuro: COMMON NORMALS: CN's II-XII intact bilaterally, moves all extremities and no sensory deficits noted SENSORIUM/ORIENTATION: Yes alert SPEECH: expressive aphasia (Baseline yes/no) Psych: APPEARANCE: Yes grossly normal and Yes well kempt ATTITUDE: Yes calm ACTIVITY/MOTOR BEHAVIOR: Yes appropriate eye contact SPEECH: Yes minimal (Baseline) Data 09/01/22 21:15 09/01/22 21:15 Micro: Microbiology 09/01/22 23:23 Blood Culture - Preliminary Blood SPECIMEN COLLECTED 09/01/22 23:20 Blood Culture - Preliminary Blood SPECIMEN COLLECTED KUB: I personally reviewed and interpreted this imaging study as follows: My impression: Significant colonic distention throughout CT Abd/Pel: I personally reviewed and interpreted this imaging study as follows: My impression: Significant colonic distention with gas throughout, most exaggerated in the sigmoid colon. No evidence of sigmoid volvulus. No free air. Some evidence of pericolonic inflammatory stranding. 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 (2) Abdominal pain: As above (3) Hypokalemia: As above (4) Leukocytosis: As above Consult Attestations Time Spent in Patient Care: 16 - 35 minutes (>than 50% of time spent in counselling and/or direct pt care on unit). 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
--- NOTE | 2022-09-01 23:58 | PM.HP ---
Providers/Chief Complaint Primary Care Provider: NIRANJAN Drummond Chief Complaint: FEVER History of Present Illness Jaziel Willis is a 51 year old male past medical history of seizures, hypertriglyceridemia, peripheral vascular disease presented to the hospital today with complaint of abdominal distention that apparently suddenly started yesterday. It has been worsening ever since. Patient had an episode of loose stools yesterday. Denies having constipation in the past or diarrhea. He is accompanied by his mother. Patient's mother provides most of the history. She says she has been having a fever since yesterday which was as high as 103. He is also been coughing and having some respiratory congestion. He has not really been bringing up any sputum. He has never had abdominal distention before. Denies any abdominal surgeries in the past. He does have a history of seizures for which he follows with Dr. Forrester and [facility]. Patient is on lacosamide, Keppra, phenytoin. She does not have a list of his medications today. Patient states he is in the hospital. He is a little hard to understand. Does have a history of developmental disorder. ED course: On arrival Arterial Dopplers ruled out blood pressure 137/89, respiratory 15, pulse 86, temperature 99.3, saturating 96% on room air. X-ray abdomen showed multiple dilated loops of colon measuring up to at least 10 cm perhaps reflecting obstruction ileus or Troy syndrome or consideration. CT to further evaluate. Chest x-ray done which showed markedly dilated loop of bowel in the left abdomen measuring up to [address] abdomen done which showed markedly dilated loop of sigmoid colon measuring up to nearly 15 cm along with diffuse lesser dilation of the colon duct more proximally with an apparent transition point of narrowing seen in the distal sigmoid colon. Fluid is seen in the lumen with narrowing of lumen without focal obstructing lesion suggesting the dilation may be secondary to underlying Troy's syndrome has no mechanical point of obstruction is seen in the area. Patient was evaluated by general surgery at the bedside. Surgery service has recommended medical admission, optimization of electrolytes, rectal tube decompression and possible consideration of neostigmine therapy. Possibility of surgical intervention if no improvement in next 24 hours. Medications/Allergies Home Medications Medication Instructions Recorded Confirmed Last Taken Type Compression hose #1 ea 09/21/20 08/20/22 Unknown Rx Compression hose 07/13/21 08/20/22 Unknown History Diabetic Shoes with 3 pairs of #1 ea 03/23/22 08/20/22 Unknown Rx inserts lacosamide 200 mg tablet (Vimpat) 200 mg PO BID 1 month #60 tabs 06/09/22 08/20/22 Unknown Rx phenytoin 50 mg chewable tablet See Rx Instructions .Route 06/19/22 08/20/22 Unknown Rx .COMPLEX #270 tabs levetiracetam 1,000 mg tablet 1,500 mg PO BID 08/20/22 08/20/22 Unknown History trazodone 100 mg tablet 100 mg PO BEDTIME 08/20/22 08/20/22 Unknown History lacosamide 50 mg tablet 50 mg PO BID #180 tabs 08/21/22 Unknown Rx Allergies Allergy/AdvReac Type Severity Reaction Status Date / Time No Known Allergies Allergy Verified 09/01/22 19:51 PFSH Acute PFSH: Medical History Cellulitis of oral soft tissues Endotracheally intubated Essential hypertension Frontal lobe epilepsy Generalized epilepsy Hypertension Intellectual disability Leukocytosis Morbid obesity Nonhealing nonsurgical wound Peripheral vascular disease Seizure Status epilepticus Venous stasis dermatitis Surgical History S/P vein stripping Family History Father Cancer Lung cancer Mother CAD (coronary artery disease) Other Diabetes Heart disease Hypertension Denies family history of Stroke Social History Smoking and tobacco status: never smoked Second hand smoke exposure: No Smoking risk assessment/counseling performed?: No Alcohol intake: never Desire information about alcohol rehabilitation?: No Counseling given: No Desire information about substance/drug rehabilitation?: No Counseling given: No Caregiver/support person: Yes Lives independently: No Household members: family Marital status: Single service: No Current occupational status: disabled History of recent travel: No Current gender identity: Male Vitals/I&O/Wt Last Vital Signs Temp 99.3 F 09/01/22 21:52 Pulse 86 09/01/22 21:52 Resp 15 09/01/22 21:52 BP 137/89 09/01/22 21:52 Pulse Ox 96 09/01/22 21:52 O2 Del Method 09/01/22 21:52 Physical Exam Narrative: General: Alert, says the word encompass health, intellectually, altered mental status HEENT: Normocephalic, atraumatic, EOMI, breathing comfortably but coughs. No acute respiratory distress apparently noted. Cardio: Regular rate rhythm, normal S1-S2, Respiratory: Mild rhonchi at bases of lungs. They do clear with coughing. GI: Abdomen significant only distended but soft, tympanic to percussion, no guarding present. Extremities: No bilateral lower extremity edema noted. Moves all 4 extremities. Hyperactive bowel sounds. Data 09/01/22 21:15 09/01/22 21:15 Micro: Microbiology 09/01/22 23:23 Blood Culture - Preliminary Blood SPECIMEN COLLECTED 09/01/22 23:20 Blood Culture - Preliminary Blood SPECIMEN COLLECTED A&P Assessment and plan (1) Troy's syndrome: (2) Hypokalemia: (3) Abdominal pain: (4) Developmental disorder: (5) Generalized epilepsy: (6) Frontal lobe epilepsy: (7) Leukocytosis: (8) Fever: Plan #Abdominal distention secondary to most likely Troy syndrome #Hypokalemia #Leukocytosis, most likely reactive versus true infection #Fever 103 #Cough #History of epilepsy #Intellectual disability #History of breakthrough seizures. -Replete electrolytes as needed ? We will check for COVID and flu ? Stool sample for culture ? Check C. difficile ? Urine culture ? Blood cultures ? Continue home seizure medications ?Lactic acid is normal. We will recheck in AM. ? IV fluids normal saline 75 cc/h ? DuoNeb every 4 hours as needed ? Rectal tube placed for decompression by general surgery. General surgery was consulted. Consideration of neostigmine if failed conservative management within 48 to 72 hours. -Low threshold to repeat imaging if change in clinical status. Patient is at risk for perforation if distention does not start to improve. ? Check magnesium, phosphorus, tsh ? Keep n.p.o. -KUB every 12 hours to monitor colonic diameter ? Labs every 12 hours ? Serial abdominal exam every 12 hours Full code DVT prophylaxis: Heparin SQ twice daily Attestations Medical Necessity Statement*: Requires greater than 2 midnight stay for management of yuki syndrome Coding Level of Care Code Acute Feed Mill Supervisor for [facility] Fwd Diagnoses Yuki's syndrome K59.81 Hypokalemia E87.6 Abdominal pain R10.9 Developmental disorder F89 Generalized epilepsy G40.309 Frontal lobe epilepsy G40.802 Leukocytosis D72.829 Fever R50.9
[2022-09-01 23:59] LABS: Lactic Sepsis W/Reflex 1.5 mmol/L (0.5-2.2)
[2022-09-02] VITALS (14 sets, daily range): BP systolic 112–165; BP diastolic 72–91; PULSE 57–91; RESP 14–33; TEMP 36.8–38.2; O2SAT 94–99
[2022-09-02] MEDS: LORazepam 2 mg/mL INJ 1 mL 1 MG IVP ×2 (00:29→14:42)
[2022-09-02] MEDS: piperacillin-tazobactam 3.375 GM in sodium chloride 0.9% (plus) 50 ML IV ×3 (00:30→19:48)
[2022-09-02] MEDS: potassium chloride premix 100 ML 25 MEQ IV (00:55)
--- NOTE | 2022-09-02 02:52 | PC.NURSE ---
ADMIT NOTE Pt received to floor from ER at 0225. Is alert and follows directions. Does not talk. Incont on arrival to room. Changed. Abdomen is extremely large & distended. Tenderness present with palpation. Very faint occ bowel sound heard. Has rectal tube in place. ER nurse reported a very large amt of gas with tube placement. Has brown thin liquid BM in the bag. IV K-rider infusing per pump. VS check done. Pt has developmental delay. No family with him. Bed alarm on.
--- NOTE | 2022-09-02 03:02 | XRR_ITS ---
PROCEDURE INFORMATION: Exam: XR Abdomen Exam date and time: 09/02/2022 3:19 AM Age: 51 years old Clinical indication: Patient HX: F/u four hours post rectal tube placement for severe bowel distention. ; Additional info: Colonic distention follow up TECHNIQUE: Imaging protocol: Radiologic exam of the abdomen. Views: Frontal supine view of the abdomen. 1 View. COMPARISON: CT abdomen pelvis w con* [id number] 09/01/2022 10:31 PM FINDINGS: Gastrointestinal tract: Air-filled large bowel diffusely. Air-filled small bowel. Contrast within the urinary bladder. Please reference prior CT dated 09-01-22. Bones/joints: Unremarkable. XR/XR KUB portable [id number] IMPRESSION: Air-filled large bowel diffusely. Air-filled small bowel. Contrast within the urinary bladder. Please reference prior CT dated 09-01-22. The exam is limited. Consider CT if indicated.
[2022-09-02] MEDS: sodium chlor 0.9% + KCl 20 mEq 20 MEQ/1,000 ML BAG 100 MEQ IV ×2 (03:29→14:42)
[2022-09-02] MEDS: heparin 5,000 unit/mL INJ 1 mL 5000 UNIT SUBCUT ×2 (03:30→14:43)
[2022-09-02] MEDS: pantoprazole 40 mg SDV IVP (04:01)
[2022-09-02 05:23] LABS: Magnesium 2.4 mg/dL (1.7-2.3)
[2022-09-02 05:31] LABS: Procalcitonin 0.13 ng/mL (0-0.5)
[2022-09-02 05:46] LABS: Thyroid Stimulating Hormone 1.44 uIU/mL (0.27-4.20)
--- NOTE | 2022-09-02 07:16 | PM.PN ---
Subjective Subjective: Admitted and started on antibiotics overnight, rectal tube placed for decompression. Patient continues to report he is feeling fine. Medications: Reviewed: Yes Vitals/I&O/Wt Last Vital Signs Temp 98.4 F 09/02/22 04:00 Pulse 76 09/02/22 05:54 Resp 14 09/02/22 04:00 BP 126/77 09/02/22 04:00 Pulse Ox 97 09/02/22 05:08 O2 Del Method 09/02/22 05:08 09/01/22 09/02/22 09/02/22 22:59 06:59 14:59 Intake Total 150 / 150 Output Total 200 / 200 Balance -50 / -50 Physical Exam Const: COMMON NORMALS: no acute distress and alert EXAM LIMITATIONS: altered mental status (Baseline limitations due to intellectual disability) GENERAL APPEARANCE: cooperative and comfortable HENMT: COMMON NORMALS: normocephalic HEAD & SCALP: normal to inspection and normocephalic Eye: COMMON NORMALS: EOMs intact bilaterally and no scleral icterus GENERAL EYE: appearance normal, both eyes and all related structures Neck/C-Spine: COMMON NORMALS: supple GENERAL: Yes normal visual inspection Chest: COMMONS NORMALS: normal inspection of the chest CHEST: Yes Symmetrical chest wall rise Resp: COMMON NORMALS: normal respiratory effort and No use of accessory muscles EFFORT & INSPECTION: Yes symmetric chest movement Cardio: COMMON NORMALS: regular rate and regular rhythm RATE: regular rate RHYTHM: regular rhythm PERIPHERAL PULSES: radial pulses present GI: COMMON NORMALS: Soft to palpation INSPECTION: Yes abdominal distension (Slightly decreased compared to last night) PALPATION: Yes Soft to palpation RECTAL EXAM: Yes other (Rectal decompression tube present with thin brown drainage) Extremity: COMMON NORMALS: normal to inspection Neuro: COMMON NORMALS: CN's II-XII intact bilaterally, moves all extremities and no focal motor deficits SENSORIUM/ORIENTATION: Yes alert Psych: COMMON NORMALS: mental status grossly normal (Remains at basline) and speech normal (At baseline) SPEECH: Yes normal speech (At baseline) and Yes minimal Data 09/01/22 21:15 09/01/22 21:15 Micro: Microbiology 09/01/22 23:23 Blood Culture - Preliminary Blood SPECIMEN COLLECTED 09/01/22 23:20 Blood Culture - Preliminary Blood SPECIMEN COLLECTED A&P Assessment and plan (1) Yuki's syndrome: (2) Abdominal pain: (3) Hypokalemia: (4) Fever: Plan Ongoing but improving colonic distention. Remains hemodynamically stable. Concern for infectious colitis vs [place]. Agree with NPO, continued rectal tube decompression, ongoing antibiotic therapy, fecal studies in process, and serial laboratory evaluation to monitor leukocytosis and electrolytes. Will continue to follow. Attestations Medical Necessity Statement*: Fever, Leukocytosis, abdominal distention with severe colonic dilatation, some diagnostic studies pending, remains NPO. Anticipate will remain inpatient greater than 2 midnights. Coding Level of Care Code Established Pt Acute Social Media Manager for [facility] Fwd Patient Type Established History Expanded Problem Focused Exam Expanded Problem Focused Medical Decision Making Low Complexity Diagnoses Yuki's syndrome K59.81 Abdominal pain R10.9 Hypokalemia E87.6 Fever R50.9
[2022-09-02 09:26] LABS: Basophils % 0.3 %; Eosinophils # 0.1 10^3/uL (0.0-0.8); Eosinophils % 0.6 %; Hematocrit 36.6 % (42.0-52.0); Hemoglobin 12.9 g/dL (11.7-16.6); Lymphocytes # 1.2 10^3/uL (0.8-4.8); Lymphocytes % 7.7 %; Mean Corpuscular HGB Conc 35.2 g/dL (30.0-36.0); Mean Corpuscular Hemoglobin 32.8 pg (28.0-34.0); Mean Corpuscular Volume 93.1 fl (80-94); Mean Platelet Volume 10.3 fL (7.4-10.4); Monocytes # 2.5 10^3/uL (0.2-0.9); Monocytes % 15.6 %; Neutrophils # 11.85 10^3/uL (1.8-7.7); Neutrophils % 75.3 %; Nucleated Red Blood Cells % 0 %; Platelet Count 203 10^3/cmm (130-400); Red Blood Count 3.93 10^6/uL (4.1-5.3); Red Cell Distribution Width 13.4 % (12.1-15.1); White Blood Count 15.7 10^3/uL (4.0-10.0)
[2022-09-02] MEDS: lidocaine 1% 5 ML in potassium chloride premix 100 ML 50 ML IV ×3 (09:43→22:35)
[2022-09-02 09:49] LABS: Anion Gap 14.7 (5-19); Blood Urea Nitrogen 17 mg/dL (6-20); Carbon Dioxide 23 mmol/L (22-29); Chloride 105 mmol/L (98-107); Glomerular Filtration Rate 227.7 mL/min (90-130); Glucose 112 mg/dL (65-115); Osmolality Calculated 292 mOsm/kg (285-295); Sodium 140 mmol/L (136-145)
[2022-09-02 09:51] LABS: Potassium 2.7 mmol/L (3.5-5.1)
[2022-09-02] MEDS: [UNRECOGNIZED DRUG - REMARK] 104 MG IV ×2 (10:17→17:28)
[2022-09-02 13:40] LABS: Blood Urine Trace (Negative); Glucose Urine UA Norm (Normal); Ketones Urine Negative (Negative); Nitrate Urine Negative (Negative); Protein Urine 1+ (Negative); Urine Appearance Clear (CLEAR); Urine Color Amber (Yellow); pH Urine 5 (5-7)
[2022-09-02 13:41] LABS: Add Urine Culture? No; Add Urine Microscopic? YES; Bilirubin Urine 1+ (Negative); Leukocyte Esterase Urine Negative (Negative); Mucus Urine 2+ /hpf; Urobilinogen Urine 4 mg/dL (Negative)
[2022-09-02] MEDS: metroNIDAZOLE IV 500 MG/100 ML PREMIX 100 MG IV ×2 (14:41→22:35)
--- NOTE | 2022-09-02 15:02 | XRR_ITS ---
PROCEDURE INFORMATION: Exam: XR Abdomen Exam date and time: 09/02/2022 6:36 AM Age: 51 years old Clinical indication: Other: Post colonic follow up; Additional info: Colonic distention follow up. Patient very large and AMS, best images possible obtained TECHNIQUE: Imaging protocol: Radiologic exam of the abdomen. Views: Frontal supine view of the abdomen. 1 View. COMPARISON: CR (ABDOMEN, ) 09/02/2022 3:19 AM FINDINGS: Gastrointestinal tract: Air-filled large bowel diffusely. No significant change. Please see prior CT. No visualized free air below the diaphragm. Bones/joints: Unremarkable. XR/XR KUB portable [id number] IMPRESSION: Air-filled large bowel diffusely. No significant change. Please see prior CT. No visualized free air below the diaphragm.
--- NOTE | 2022-09-02 15:26 | PC.NURSE ---
This nurse inserted an NG per orders into the right nare and was secured with venaguard. Patient tolerated well. Put in a stat order for x-ray to confirm placement. Went back to room to check on patient and he had his right AC IV pulled out and his NG laying on the bed. Also is the third time patient has attempted to get out of bed with no regards to rectal tube and kohler catheter. Patient at risk for pulling out all lines. One time RBVO on the phone for Haldol 5mg IVP to help patient relax and if that doesn't work then ICU for precedex drip.
--- NOTE | 2022-09-02 15:31 | P.PN_ITS ---
Subjective Subjective: Patient was seen and examined this morning, he is currently not having any nausea vomiting, abdominal examination is significant for Hypoactive bowel sounds no tenderness noted, stool is positive for C. difficile. Rectal tube in place Medications: Reviewed: Yes Medication Review Details: 3Generic Name Dose Route Start Last Admin Trade Name Freq PRN Reason Stop Dose Admin Heparin Sodium (Po rcine) 5,000 unit 09/02/22 03:15 09/02/22 14:43 Heparin 5,000 Un it/Ml Inj 1 Ml SUBCUT 5,000 unit Q12H OTIS Administration Potassium Chloride /Sodium Chloride 20 meq in 1,000 m ls @ 100 mls/hr 09/02/22 03:15 09/02/22 14:42 Sodium Chlor 0.9 % + Kcl 20 Meq IV 100 mls/hr .Q10H OTIS Administration Levetiracetam 1,50 0 mg/ Sodium 115 mls @ 440 mls /hr 09/02/22 09:00 09/02/22 09:26 Chloride IV Infused Q12H OTIS Infusion Lacosamide 250 mg/ Sodium 75 mls @ 120 mls/ hr 09/02/22 09:00 09/02/22 11:27 Chloride IV Infused Q12H OTIS Infusion Phenytoin 250 mg/ Sodium 25 mls @ 104 mls/ hr 09/02/22 09:00 09/02/22 10:42 Chloride/ IV Misce llaneous IV Infused Supplies Q8H OTIS Infusion Piperacillin Sod/T azobactam 50 mls @ 12.5 mls /hr 09/02/22 09:00 09/02/22 11:32 Sod 3.375 gm/ So dium Chloride IV 12.5 mls/hr Q8H OTIS Administration Protocol Metronidazole 500 mg in 100 mls @ 100 mls/hr 09/02/22 14:30 09/02/22 14:41 Flagyl Iv IV 100 mls/hr Q8H OTIS Administration Protocol Lorazepam 1 mg 09/02/22 13:22 09/02/22 14:42 Lorazepam 2 Mg/M l Inj 1 Ml IVP 1 mg Q8H PRN Administration ANXIETY Pantoprazole Sodiu m 40 mg 09/02/22 03:15 09/02/22 04:01 Pantoprazole 40 Mg Sdv IVP 40 mg Q24H OTIS Administration Vitals/I&O/Wt Last Vital Signs Temp 98.9 F 09/02/22 12:00 Pulse 78 09/02/22 12:00 Resp 18 09/02/22 12:00 BP 112/78 09/02/22 12:00 Pulse Ox 97 09/02/22 12:00 O2 Del Method 09/02/22 12:00 09/02/22 09/02/22 09/02/22 06:59 14:59 22:59 Intake Total 150 / 150 1425 / 1425 Output Total 200 / 200 600 / 600 Balance -50 / -50 825 / 825 Weight last 48 hrs Weight 134.433 kg Physical Exam Resp: COMMON NORMALS: clear to auscultation bilaterally EFFORT & INSPECTION: Yes symmetric chest movement AUSCULTATION: clear to auscultation bilaterally Cardio: COMMON NORMALS: regular rate, regular rhythm, S1 normal heart sound present, S2 normal heart sound present, No gallops present (Cardio), No murmurs present (Cardio), No rub (Cardio) and Peripheral pulses 2+ throughout RATE: regular rate RHYTHM: regular rhythm HEART SOUNDS: S1 normal heart sound present and S2 normal heart sound present PERIPHERAL PULSES: Peripheral pulses 2+ throughout GI: OTHER: Distended abdomen, hypoactive bowel sounds, nontender Extremity: COMMON NORMALS: no clubbing, cyanosis or edema and no pedal edema Urinary Catheter Management: Saenz: Cath Placed During This Visit: yes Urinary Catheter Date of Insertion: 09/02/22 Urinary Catheter Time of Insertion: 12:00 Data 09/02/22 09:12 09/02/22 09:12 Micro: Microbiology 09/02/22 03:35 Enteric Pathogens (PCR) - Final Stool Routine Collection 09/02/22 03:35 C.difficile Toxin B Gene (PCR) - Final Stool Routine Collection 09/01/22 23:23 Blood Culture - Preliminary Blood SPECIMEN COLLECTED 09/01/22 23:20 Blood Culture - Preliminary Blood SPECIMEN COLLECTED A&P Assessment and plan (1) Pendleton's syndrome: (2) Hypokalemia: (3) Abdominal pain: (4) Developmental disorder: (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 Currently being managed for Assessment: C. difficile colitis Abdominal distention concerning for possibility Pendleton syndrome: S/p rectal tube placement Fever Acute metabolic encephalopathy Leukocytosis History of epilepsy History of intellectual disability History of breakthrough seizures Plan: CT abdomen pelvis w con: Has shown colonic loop dilatation concerning for possible Yuki syndrome Blood cultures: NTD Stool C. difficile PCR positive Stool enteric bacterial PCR negative Lactic acid :1.5 Currently patient is on Zosyn, IV metronidazole, will put NG tube and start him on p.o. vancomycin. IV metronidazole will provide some additional coverage for C. difficile. Monitor for toxic megacolon. Continue gentle IV hydration with normal saline Continue home antiseizure medications (Keppra, phenytoin, lacosamide ) Continue Protonix IV daily Patient has received IV potassium multiple doses, monitor serum potassium: Correct accordingly as it could be contributing to: Bowel dysfunction. Monitor x-ray abdomen Currently n.p.o. except for meds Full code DVT prophylaxis: Heparin SQ twice daily Attestations Medical Necessity Statement*: Patient needs to be in hospital for management of C. difficile colitis. 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
[2022-09-02] MEDS: haloperidol inj 5 mg/mL INJ 1 mL IVP (15:37)
[2022-09-02 16:01] LABS: Anion Gap 14.7 (5-19); Blood Urea Nitrogen 20 mg/dL (6-20); Calcium 8.8 mg/dL (8.5-10.5); Carbon Dioxide 22 mmol/L (22-29); Chloride 105 mmol/L (98-107); Glucose 117 mg/dL (65-115); Magnesium 2.1 mg/dL (1.7-2.3); Osmolality Calculated 292 mOsm/kg (285-295); Sodium 139 mmol/L (136-145)
--- NOTE | 2022-09-02 16:31 | XRR_ITS ---
PROCEDURE INFORMATION: Exam: XR Chest Exam date and time: 09/02/2022 4:42 PM Age: 51 years old Clinical indication: Device placement; Ng tube; Additional info: Ng placement TECHNIQUE: Imaging protocol: Radiologic exam of the chest. Views: 1 view. COMPARISON: CR (CHEST, ) 09/01/2022 9:26 PM FINDINGS: Tubes, catheters and devices: NG tube terminates in the stomach. Lungs: Unremarkable. No consolidation. Pleural spaces: Unremarkable. No pleural effusion. No pneumothorax. Heart/Mediastinum: Unremarkable. No cardiomegaly. Bones/joints: Unremarkable. Gastrointestinal tract: Markedly dilated colonic loops noted in the upper abdomen. XR/XR chest 1V portable [id number] IMPRESSION: 1. NG tube in proper positioning. 2. Markedly dilated colonic loops noted in the upper abdomen.
[2022-09-02 16:47] LABS: Potassium 2.7 mmol/L (3.5-5.1)
[2022-09-02] MEDS: lidocaine 1% 5 ML in potassium chloride premix 100 ML 25 ML IV (17:18)
--- NOTE | 2022-09-02 19:31 | PC.NURSE ---
Was able to get a 16f NG in the patient's right nare. X-ray verified placement. Patient hooked up to [facility] for soft wrist restraints. Patient tolerated well. Released every hour for repositioning and stretching. Every time he was released he attempted to pull his NG out. Rectal tube patent and draining as well as the kohler. Patient is comfortable with call light in reach.
[2022-09-02] MEDS: ziprasidone 20 mg/mL SDV 10 MG IM (19:48)
[2022-09-03] VITALS (11 sets, daily range): BP systolic 136–151; BP diastolic 75–86; PULSE 75–82; RESP 16–30; TEMP 36.9–37.7; O2SAT 94–96
[2022-09-03] MEDS: [UNRECOGNIZED DRUG - REMARK] 104 MG IV ×3 (01:05→17:53)
[2022-09-03] MEDS: sodium chlor 0.9% + KCl 20 mEq 20 MEQ/1,000 ML BAG 100 MEQ IV (01:06)
[2022-09-03 01:58] LABS: Basophils # 0.1 10^3/uL (0.0-0.1); Basophils % 0.4 %; Eosinophils # 0.1 10^3/uL (0.0-0.8); Eosinophils % 0.4 %; Hematocrit 35.2 % (42.0-52.0); Hemoglobin 12.1 g/dL (11.7-16.6); Lymphocytes # 1.2 10^3/uL (0.8-4.8); Lymphocytes % 9.9 %; Mean Corpuscular HGB Conc 34.4 g/dL (30.0-36.0); Mean Corpuscular Hemoglobin 32.8 pg (28.0-34.0); Mean Corpuscular Volume 95.4 fl (80-94); Mean Platelet Volume 10.4 fL (7.4-10.4); Monocytes % 16.3 %; Neutrophils # 8.89 10^3/uL (1.8-7.7); Neutrophils % 72.6 %; Nucleated Red Blood Cells % 0 %; Platelet Count 202 10^3/cmm (130-400); Red Blood Count 3.69 10^6/uL (4.1-5.3); Red Cell Distribution Width 13.8 % (12.1-15.1); White Blood Count 12.2 10^3/uL (4.0-10.0)
[2022-09-03 02:34] LABS: Alanine Aminotransferase 9 U/L (0-41); Albumin Level 3.2 g/dL (3.5-5.2); Alkaline Phosphatase 65 U/L (40-130); Anion Gap 14.8 (5-19); Aspartate Amino Transferase 12 U/L (0-40); Blood Urea Nitrogen 20 mg/dL (6-20); Calcium 8.2 mg/dL (8.5-10.5); Carbon Dioxide 23 mmol/L (22-29); Chloride 111 mmol/L (98-107); Globulin 2.7 g/dL (1.3-4.6); Glomerular Filtration Rate 227.7 mL/min (90-130); Glucose 108 mg/dL (65-115); Osmolality Calculated 305 mOsm/kg (285-295); Phosphorus 2.3 mg/dL (2.5-4.5); Sodium 146 mmol/L (136-145); Total Bilirubin 0.8 mg/dL (0.15-1.2); Total Protein 5.9 g/dL (6.6-8.7)
[2022-09-03 02:35] LABS: Magnesium 2.3 mg/dL (1.7-2.3)
[2022-09-03 02:36] LABS: Lactic Sepsis W/Reflex 0.9 mmol/L (0.5-2.2)
--- NOTE | 2022-09-03 03:02 | XRR_ITS ---
PROCEDURE INFORMATION: Exam: XR Abdomen Exam date and time: 09/03/2022 5:28 AM Age: 51 years old Clinical indication: Patient HX: F/u for extensive colonic distention. Ng and rectal tube in place. Best films due to habitus. ; Additional info: Colonic distention follow up TECHNIQUE: Imaging protocol: Radiologic exam of the abdomen. Views: Frontal supine view of the abdomen. 1 View. COMPARISON: CR (ABDOMEN, ) 09/02/2022 6:36 AM FINDINGS: Gastrointestinal tract: Persistent air-filled loops of large bowel throughout the abdomen. No air-fluid levels seen. Bones/joints: Unremarkable. XR/XR KUB portable [id number] IMPRESSION: Persistent air-filled loops of large bowel throughout the abdomen.
[2022-09-03] MEDS: heparin 5,000 unit/mL INJ 1 mL 5000 UNIT SUBCUT ×2 (03:10→17:05)
[2022-09-03] MEDS: piperacillin-tazobactam 3.375 GM in sodium chloride 0.9% (plus) 50 ML IV ×3 (03:12→20:55)
[2022-09-03] MEDS: pantoprazole 40 mg SDV IVP (03:42)
--- NOTE | 2022-09-03 04:14 | PC.NURSE ---
RECTAL TUBE Found rectal tube out with rounding. Was replaced without difficulty. Have heard pt passing gas through the tube. Can hear stool bubbling through tube. Had to release gas for full bag X1 tonight. Passing watery brown stool as well. Bag changed. Remains in soft wrist restraints and as soon as is released for 2 hour ROM he will reach for NG.
[2022-09-03 05:17] LABS: Potassium 2.8 mmol/L (3.5-5.1)
[2022-09-03] MEDS: lidocaine 1% 5 ML in potassium chloride premix 100 ML 25 ML IV ×2 (05:38→19:54)
[2022-09-03] MEDS: metroNIDAZOLE IV 500 MG/100 ML PREMIX 100 MG IV ×3 (05:38→23:16)
--- NOTE | 2022-09-03 07:12 | PM.PN ---
Subjective Subjective: Rectal tube replaced overnight, continues with gas and liquid stool output. Patient remains affable without complaint. Vitals/I&O/Wt Last Vital Signs Temp 99.0 F 09/03/22 04:29 Pulse 76 09/03/22 06:00 Resp 30 H 09/03/22 04:29 BP 136/78 09/03/22 04:29 Pulse Ox 94 09/03/22 04:29 O2 Del Method 09/03/22 04:29 09/02/22 09/03/22 09/03/22 22:59 06:59 14:59 Intake Total 470 / 1895 1280.000 / 3175.000 Output Total 1350 / 1950 Balance 470 / 1295 -70.000 / 1225.000 Weight last 48 hrs Weight 296 lb 6 oz Physical Exam Const: COMMON NORMALS: no acute distress, alert and well nourished EXAM LIMITATIONS: altered mental status (baseline) GENERAL APPEARANCE: cooperative and comfortable HENMT: COMMON NORMALS: normocephalic, atraumatic, external ears normal and Normal external nose present HEAD & SCALP: normocephalic and atraumatic NOSE: Normal external nose present EXTERNAL EAR: Yes external ears normal Eye: COMMON NORMALS: EOMs intact bilaterally and no scleral icterus GENERAL EYE: appearance normal, both eyes and all related structures ALIGNMENT: Yes alignment normal PERIORBITAL: periorbital findings normal Chest: COMMONS NORMALS: normal inspection of the chest CHEST: Yes Symmetrical chest wall rise Resp: COMMON NORMALS: normal respiratory effort and No retractions EFFORT & INSPECTION: Yes able to speak in complete sentences and Yes symmetric chest movement Cardio: COMMON NORMALS: regular rate and regular rhythm RATE: regular rate RHYTHM: regular rhythm PERIPHERAL PULSES: radial pulses present GI: COMMON NORMALS: Soft to palpation and non-tender INSPECTION: Yes abdominal distension (somwhat improved from yesterday), Yes central obesity and Yes GI tube present (rectal tube present with brown liquid stool) PALPATION: Yes Soft to palpation Extremity: COMMON NORMALS: normal to inspection Neuro: COMMON NORMALS: CN's II-XII intact bilaterally, no focal motor deficits and no sensory deficits noted SENSORIUM/ORIENTATION: Yes alert Psych: COMMON NORMALS: mental status grossly normal (baseline) and cooperative Urinary Catheter Management: Saenz: Cath Placed During This Visit: no Data 09/03/22 01:42 09/03/22 01:42 Other Labs: LA 0.9 Micro: Microbiology 09/01/22 23:23 Blood Culture - Preliminary Blood NEGATIVE TO DATE 09/01/22 23:20 Blood Culture - Preliminary Blood NEGATIVE TO DATE 09/02/22 03:35 Enteric Pathogens (PCR) - Final Stool Routine Collection 09/02/22 03:35 C.difficile Toxin B Gene (PCR) - Final Stool Routine Collection KUB: I personally reviewed and interpreted this imaging study as follows: My impression: Serial abdominal films reviewed, continued but improving colonic distention A&P Assessment and plan (1) Yuki's syndrome: (2) Hypokalemia: (3) Abdominal pain: (4) Clostridium difficile enterocolitis: Plan Continues to improve clinically, rectal tube continues to function well. Hemodynamically stable and laboratory evaluation also showing signs of improvement. Agree with continued medical therapy for C. diff. Will continue to monitor for the possible development of toxic megacolon. Attestations Medical Necessity Statement*: Inpatient care required for ongoing treatment of C. diff colitis. Coding Level of Care Code Established Pt Acute Spike Maker for Chg Fwd Patient Type Established History Expanded Problem Focused Exam Expanded Problem Focused Medical Decision Making Moderate Complexity Diagnoses Yuki's syndrome K59.81 Hypokalemia E87.6 Abdominal pain R10.9 Clostridium difficile enterocolitis A04.72
--- NOTE | 2022-09-03 10:57 | PC.CHAP ---
Pastoral Care Encounter/Spiritual Assessment Type of Contact [] Declined director cardiovascular visit [] Patient/Family/Request visit [] Outpatient visit [] Follow-up visit [] Physician referral [] Code/Alert [] Routine visit [] Staff referral [] Actively dying [] Patient sleeping [] Family support [] [] Out of room [] Palliative care [] [] Receiving care in room [] Pre-surgical visit [] Trauma [] Long length of stay [] ICU visit [x] Other: Fever Isolation Relational/Emotional Strength [] Patient feels connected with others/family/visitors/staff [] Distress [] Loneliness/isolation [] Abandonment Spirituality of Patient [] Person of Jaycee [] Attends Synagogue of their [place]cee [] Believes in Prayer [] Reads Bible or Quaker materials [] There are Spiritual issues to be addressed Supervisor White [employer] Interventions [] Prayer [] Active listening [] Non-anxious presence [] Spiritual/emotional support [] Crisis/trauma care [] Spiritual counseling [] Bereavement support [] Provided bereavement packet [] Provided Bible/devotional materials [] Provided toy/stuffed animal, coloring book to patient or family member [] Provided Communion [] Anointing/[place] [] Salvation [] Completed spiritual assessment [] Other: Impact on Illness or Injury [] Angry [] Fearful [] Anxious [] Often cries [] Exhaustion [] Unable to work [] Unable to attend mormon [] Unable to walk/stand [] Unable to read [] Unable to drive [] Unable to eat/drink [] Unable to sleep [] Unable to be with family [] Patient intubated [] Other: Summary Fever Isolation Time spent with patient 5 mins
--- NOTE | 2022-09-03 15:02 | XRR_ITS ---
PROCEDURE INFORMATION: Exam: XR Abdomen Exam date and time: 09/03/2022 6:49 AM Age: 51 years old Clinical indication: Abdominal pain; Generalized; Additional info: Colonic distention follow up TECHNIQUE: Imaging protocol: Radiologic exam of the abdomen. Views: Frontal supine view of the abdomen. 1 View. COMPARISON: CR XR KUB portable [id number] 09/03/2022 5:28 AM, abdomen CT dated 09/01/2022. FINDINGS: Tubes, catheters and devices: Feeding tube is in satisfactory position. Gastrointestinal tract: Persistent air-filled loops of large bowel throughout the abdomen, most prominently in the right lower quadrant, as seen on previous images. Bones/joints: Unremarkable. XR/XR KUB portable [id number] IMPRESSION: Persistent air-filled loops of large bowel throughout the abdomen.
--- NOTE | 2022-09-03 15:41 | PM.PN ---
Subjective Subjective: Patient was seen and examined this morning, he is currently not having any nausea vomiting, abdominal examination is significant for Hypoactive bowel sounds no tenderness noted, stool is positive for C. difficile. Rectal tube in place Medications: Reviewed: Yes Medication Review Details: Generic Name Dose Route Start Last Admin Trade Name Freq PRN Reason Stop Dose Admin Heparin Sodium (Po rcine) 5,000 unit 09/02/22 03:15 09/03/22 03:10 Heparin 5,000 Un it/Ml Inj 1 Ml SUBCUT 5,000 unit Q12H OTIS Administration Levetiracetam 1,50 0 mg/ Sodium 115 mls @ 440 mls /hr 09/02/22 09:00 09/03/22 09:40 Chloride IV 440 mls/hr Q12H OTIS Administration Lacosamide 250 mg/ Sodium 75 mls @ 120 mls/ hr 09/02/22 09:00 09/03/22 09:40 Chloride IV 75 mls/hr Q12H OTIS Administration Phenytoin 250 mg/ Sodium 25 mls @ 104 mls/ hr 09/02/22 09:00 09/03/22 10:56 Chloride/ IV Misce llaneous IV 104 mls/hr Supplies Q8H OTIS Administration Piperacillin Sod/T azobactam 50 mls @ 12.5 mls /hr 09/02/22 09:00 09/03/22 13:07 Sod 3.375 gm/ So dium Chloride IV 12.5 mls/hr Q8H OTIS Administration Protocol Metronidazole 500 mg in 100 mls @ 100 mls/hr 09/02/22 14:30 09/03/22 13:08 Flagyl Iv IV 100 mls/hr Q8H OTIS Administration Protocol Potassium Chloride /Dextrose/Sod Cl 1,000 mls @ 75 ml s/hr 09/03/22 08:00 09/03/22 10:55 Dextrose 5%-Ns 0 .45% + Kcl 40 IV Not Given .[id number] OTIS Lorazepam 1 mg 09/02/22 13:22 09/02/22 14:42 Lorazepam 2 Mg/M l Inj 1 Ml IVP 1 mg Q8H PRN Administration ANXIETY Pantoprazole Sodiu m 40 mg 09/02/22 03:15 09/03/22 03:42 Pantoprazole 40 Mg Sdv IVP 40 mg Q24H OTIS Administration Vancomycin HCl 125 mg 09/02/22 17:00 09/03/22 11:01 Vancomycin 1,000 Mg Oral Tosha (Btl) XX 125 mg QID OTIS Administration Vitals/I&O/Wt Last Vital Signs Temp 98.9 F 09/03/22 12:00 Pulse 79 09/03/22 12:00 Resp 17 09/03/22 12:00 BP 147/83 09/03/22 12:00 Pulse Ox 94 09/03/22 12:00 O2 Del Method 09/03/22 12:00 09/03/22 09/03/22 09/03/22 06:59 14:59 22:59 Intake Total 1380.000 / 3275.000 50 / 50 Output Total 1350 / 1950 Balance 30.000 / 1325.000 50 / 50 Weight last 48 hrs Weight 134.433 kg Physical Exam Resp: COMMON NORMALS: clear to auscultation bilaterally EFFORT & INSPECTION: Yes symmetric chest movement AUSCULTATION: clear to auscultation bilaterally Cardio: COMMON NORMALS: regular rate, regular rhythm, S1 normal heart sound present, S2 normal heart sound present, No gallops present (Cardio), No murmurs present (Cardio), No rub (Cardio) and Peripheral pulses 2+ throughout RATE: regular rate RHYTHM: regular rhythm HEART SOUNDS: S1 normal heart sound present and S2 normal heart sound present PERIPHERAL PULSES: Peripheral pulses 2+ throughout GI: OTHER: Distended abdomen, hypoactive bowel sounds, nontender Extremity: COMMON NORMALS: no clubbing, cyanosis or edema and no pedal edema Urinary Catheter Management: Saenz: Cath Placed During This Visit: yes Reason for Continuing Indwelling Catheter: Acute Urinary Retention or Obstruction Urinary Catheter Date of Insertion: 09/02/22 Urinary Catheter Time of Insertion: 12:00 Data 09/03/22 01:42 09/03/22 01:42 Micro: Microbiology 09/01/22 20:30 Urine Culture - Preliminary Urine Catheterized 09/01/22 23:23 Blood Culture - Preliminary Blood NEGATIVE TO DATE 09/01/22 23:20 Blood Culture - Preliminary Blood NEGATIVE TO DATE 09/02/22 03:35 Enteric Pathogens (PCR) - Final Stool Routine Collection 09/02/22 03:35 C.difficile Toxin B Gene (PCR) - Final Stool Routine Collection A&P Assessment and plan (1) Yuki's syndrome: (2) Hypokalemia: (3) Abdominal pain: (4) Developmental disorder: (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 Currently being managed for Assessment: C. difficile colitis Abdominal distention concerning for possibility Yuki syndrome: S/p rectal tube placement Fever Acute metabolic encephalopathy Leukocytosis History of epilepsy History of intellectual disability History of breakthrough seizures Hypokalemia Plan: CT abdomen pelvis w con: Has shown colonic loop dilatation concerning for possible Yuki syndrome Blood cultures: NTD Stool C. difficile PCR positive Stool enteric bacterial PCR negative Lactic acid :1.5 Currently patient is on Zosyn, IV metronidazole, will put NG tube and start him on p.o. vancomycin. IV metronidazole will provide some additional coverage for C. difficile. Monitor for toxic megacolon. Continue gentle IV hydration with normal saline Continue home antiseizure medications (Keppra, phenytoin, lacosamide ) Continue Protonix IV daily Patient has received IV potassium multiple doses, monitor serum potassium: Correct accordingly as it could be contributing to: Bowel dysfunction. Monitor x-ray abdomen Currently n.p.o. except for meds Full code DVT prophylaxis: Heparin SQ twice daily Attestations Medical Necessity Statement*: patient needs to be in hospital for collitis. Coding Level of Care Code Acute Metal Patternmaker Apprentice for Chg Fwd Exam Expanded Problem Focused Diagnoses [place]'s syndrome K59.81 Hypokalemia E87.6 Abdominal pain R10.9 Developmental disorder F89 Generalized epilepsy G40.309 Frontal lobe epilepsy G40.802 Leukocytosis D72.829 Fever R50.9
[2022-09-03 17:12] LABS: Basophils # 0.1 10^3/uL (0.0-0.1); Basophils % 0.5 %; Eosinophils # 0.1 10^3/uL (0.0-0.8); Eosinophils % 1.3 %; Hematocrit 38.4 % (42.0-52.0); Hemoglobin 12.9 g/dL (11.7-16.6); Lymphocytes # 1.2 10^3/uL (0.8-4.8); Mean Corpuscular HGB Conc 33.6 g/dL (30.0-36.0); Mean Corpuscular Hemoglobin 32.4 pg (28.0-34.0); Mean Corpuscular Volume 96.5 fl (80-94); Mean Platelet Volume 10.3 fL (7.4-10.4); Monocytes # 1.6 10^3/uL (0.2-0.9); Monocytes % 14.8 %; Neutrophils # 7.94 10^3/uL (1.8-7.7); Neutrophils % 71.8 %; Nucleated Red Blood Cells % 0 %; Platelet Count 230 10^3/cmm (130-400); Red Blood Count 3.98 10^6/uL (4.1-5.3); Red Cell Distribution Width 13.7 % (12.1-15.1); White Blood Count 11.1 10^3/uL (4.0-10.0)
[2022-09-03 17:33] LABS: Magnesium 2.2 mg/dL (1.7-2.3)
[2022-09-03 17:34] LABS: Alanine Aminotransferase 9 U/L (0-41); Albumin Level 2.9 g/dL (3.5-5.2); Alkaline Phosphatase 69 U/L (40-130); Anion Gap 15.9 (5-19); Aspartate Amino Transferase 13 U/L (0-40); Blood Urea Nitrogen 18 mg/dL (6-20); Calcium 8.4 mg/dL (8.5-10.5); Carbon Dioxide 21 mmol/L (22-29); Chloride 113 mmol/L (98-107); Globulin 3.1 g/dL (1.3-4.6); Glomerular Filtration Rate 227.7 mL/min (90-130); Glucose 93 mg/dL (65-115); Osmolality Calculated 306 mOsm/kg (285-295); Sodium 147 mmol/L (136-145)
[2022-09-03 17:41] LABS: Potassium 2.9 mmol/L (3.5-5.1)
[2022-09-03 21:10] LABS: Anion Gap 13.8 (5-19); Blood Urea Nitrogen 20 mg/dL (6-20); Calcium 8.3 mg/dL (8.5-10.5); Carbon Dioxide 22 mmol/L (22-29); Chloride 112 mmol/L (98-107); Glomerular Filtration Rate 317.4 mL/min (90-130); Glucose 103 mg/dL (65-115); Osmolality Calculated 303 mOsm/kg (285-295); Sodium 145 mmol/L (136-145)
[2022-09-03 21:38] LABS: Potassium 2.8 mmol/L (3.5-5.1)
[2022-09-04] VITALS (24 sets, daily range): BP systolic 123–158; BP diastolic 60–104; PULSE 71–85; RESP 17–30; TEMP 36.9–37.2; O2SAT 90–96
[2022-09-04] MEDS: LORazepam 2 mg/mL INJ 1 mL 1 MG IVP ×3 (00:45→21:20)
[2022-09-04] MEDS: lidocaine 1% 5 ML in potassium chloride premix 100 ML 25 ML IV ×4 (00:46→23:41)
[2022-09-04 01:07] LABS: Anion Gap 13.1 (5-19); Blood Urea Nitrogen 20 mg/dL (6-20); Calcium 8.2 mg/dL (8.5-10.5); Carbon Dioxide 21 mmol/L (22-29); Chloride 113 mmol/L (98-107); Glomerular Filtration Rate 227.7 mL/min (90-130); Glucose 105 mg/dL (65-115); Osmolality Calculated 301 mOsm/kg (285-295); Potassium 3.1 mmol/L (3.5-5.1); Sodium 144 mmol/L (136-145)
[2022-09-04] MEDS: [UNRECOGNIZED DRUG - REMARK] 104 MG IV (02:14)
--- NOTE | 2022-09-04 03:02 | XR_ITS ---
WS: [id number] KUB, AP portable supine, 09/04/2022 Clinical Data: colonic distention follow up Comparison: KUB, 09/03/2022 Findings: No abnormal intraabdominal masses or calcifications are seen. The marked dilatation of the colon thro ughout the abdomen remains the same. There is a nasogastric tube which probably ends in the body of t he stomach. Monitor leads are seen over the upper abdomen. XR/XR KUB portable [id number] Impression: No change in severe dilatation of the entire colon.
[2022-09-04] MEDS: pantoprazole 40 mg SDV IVP (04:16)
[2022-09-04] MEDS: piperacillin-tazobactam 3.375 GM in sodium chloride 0.9% (plus) 50 ML IV ×3 (04:16→19:53)
[2022-09-04] MEDS: heparin 5,000 unit/mL INJ 1 mL 5000 UNIT SUBCUT (04:16)
[2022-09-04] MEDS: metroNIDAZOLE IV 500 MG/100 ML PREMIX 100 MG IV ×3 (06:17→23:40)
[2022-09-04 06:31] LABS: Basophils # 0.1 10^3/uL (0.0-0.1); Basophils % 0.6 %; Eosinophils # 0.2 10^3/uL (0.0-0.8); Hematocrit 39.8 % (42.0-52.0); Hemoglobin 13.4 g/dL (11.7-16.6); Lymphocytes # 1.3 10^3/uL (0.8-4.8); Lymphocytes % 11.9 %; Mean Corpuscular HGB Conc 33.7 g/dL (30.0-36.0); Mean Corpuscular Hemoglobin 32.6 pg (28.0-34.0); Mean Corpuscular Volume 96.8 fl (80-94); Mean Platelet Volume 11.9 fL (7.4-10.4); Monocytes # 1.9 10^3/uL (0.2-0.9); Monocytes % 17.9 %; Neutrophils # 7.17 10^3/uL (1.8-7.7); Neutrophils % 66.4 %; Nucleated Red Blood Cells % 0 %; Platelet Count 182 10^3/cmm (130-400); Red Blood Count 4.11 10^6/uL (4.1-5.3); Red Cell Distribution Width 13.9 % (12.1-15.1); White Blood Count 10.8 10^3/uL (4.0-10.0)
[2022-09-04 06:56] LABS: Magnesium 2.2 mg/dL (1.7-2.3)
[2022-09-04 06:59] LABS: Alanine Aminotransferase 9 U/L (0-41); Alkaline Phosphatase 71 U/L (40-130); Anion Gap 13.2 (5-19); Aspartate Amino Transferase 11 U/L (0-40); Blood Urea Nitrogen 21 mg/dL (6-20); Calcium 8.5 mg/dL (8.5-10.5); Carbon Dioxide 23 mmol/L (22-29); Chloride 113 mmol/L (98-107); Glucose 113 mg/dL (65-115); Osmolality Calculated 306 mOsm/kg (285-295); Potassium 3.2 mmol/L (3.5-5.1); Sodium 146 mmol/L (136-145); Total Bilirubin 1.1 mg/dL (0.15-1.2)
[2022-09-04 07:33] LABS: Glucose Point of Care 105 mg/dL (70-110)
[2022-09-04] MEDS: dextrose 5% + KCl 20 mEq 20 MEQ/1,000 ML BAG 75 MEQ IV ×2 (08:03→21:12)
--- NOTE | 2022-09-04 08:49 | P.PN_ITS ---
Subjective Subjective: Transferred to ICU yesterday due to required frequency of care, no apparent deterioration in patient status. Patient was seen and examined this morning, he is currently not having any nausea, vomiting, nor abdominal pain. Vitals/I&O/Wt Last Vital Signs Temp 99 F 09/04/22 04:00 Pulse 76 09/04/22 06:00 Resp 22 H 09/04/22 06:00 BP 133/75 09/04/22 06:00 Pulse Ox 96 09/04/22 06:00 O2 Del Method 09/04/22 04:00 09/03/22 09/04/22 09/04/22 22:59 06:59 14:59 Intake Total 265 / 1660 280 / 1940 255 / 255 Output Total 1300 / 1300 850 / 2150 Balance -1035 / 360 -570 / -210 255 / 255 Weight last 48 hrs Weight 281 lb 12.012 oz Weight 296 lb 6 oz Physical Exam Const: COMMON NORMALS: no acute distress and alert (at baseline mental status) HENMT: COMMON NORMALS: normocephalic, atraumatic, external ears normal and Normal external nose present HEAD & SCALP: normocephalic and atraumatic NOSE: Normal external nose present EXTERNAL EAR: Yes external ears normal Eye: COMMON NORMALS: EOMs intact bilaterally and no scleral icterus GENERAL EYE: appearance normal, both eyes and all related structures Resp: COMMON NORMALS: normal respiratory effort, No retractions and No use of accessory muscles EFFORT & INSPECTION: Yes symmetric chest movement Cardio: COMMON NORMALS: regular rate and regular rhythm RATE: regular rate RHYTHM: regular rhythm GI: COMMON NORMALS: Soft to palpation and non-tender INSPECTION: Yes abdominal distension (improving) and Yes GI tube present (rectal tube with brown liquid stool) PALPATION: Yes Soft to palpation, No Tenderness to palpation present (GI), No Guarding due to palpation present (GI) and No Rigid due to palpation PERCUSSION: tympanic to percussion Extremity: COMMON NORMALS: no clubbing, cyanosis or edema and no pedal edema Neuro: COMMON NORMALS: no focal motor deficits and no sensory deficits noted SENSORIUM/ORIENTATION: Yes alert (at baseline mental status) Skin: COMMON NORMALS: no rashes or lesions noted GENERAL SKIN EXAM: no rashes or lesions noted Urinary Catheter Management: Saenz: Cath Placed During This Visit: yes Reason for Continuing Indwelling Catheter: Accurate Measurement of Urinary Output in Critically Ill Patients Urinary Catheter Date of Insertion: 09/02/22 Urinary Catheter Time of Insertion: 12:00 Data 09/04/22 06:02 09/04/22 06:02 Micro: Microbiology 09/01/22 20:30 Urine Culture - Preliminary Urine Catheterized A&P Assessment and plan (1) Yuki's syndrome: (2) Hypokalemia: (3) Abdominal pain: (4) Clostridium difficile enterocolitis: Plan Continues to improve clinically, rectal tube continues to function well. Hemodynamically stable and laboratory evaluation also showing continued signs of improvement. Agree with continued medical therapy for C. diff. Will continue to monitor for the possible development of toxic megacolon. Attestations Medical Necessity Statement*: Requires inpatient care for treatment of C diff Coding Level of Care Code Acute Tavern Car Attendant for [facility] Diagnoses Yuki's syndrome K59.81 Hypokalemia E87.6 Abdominal pain R10.9 Clostridium difficile enterocolitis A04.72
[2022-09-04] MEDS: [UNRECOGNIZED DRUG - REMARK] 100 MG IV ×2 (10:05→17:30)
--- NOTE | 2022-09-04 15:48 | PM.PN ---
Subjective Subjective: Patient was seen and examined this morning, serum potassium has improved, x-ray abdomen has continued to show persistent: Dilatation of the entire colon, patient continued to have watery foul-smelling stool White blood cell count is coming down, serum potassium has improved. Patient is afebrile Medications: Reviewed: Yes Medication Review Details: Generic Name Dose Route Start Last Admin Trade Name Freq PRN Reason Stop Dose Admin Levetiracetam 1,50 0 mg/ Sodium 115 mls @ 440 mls /hr 09/02/22 09:00 09/04/22 10:17 Chloride IV Infused Q12H OTIS Infusion Lacosamide 250 mg/ Sodium 75 mls @ 120 mls/ hr 09/02/22 09:00 09/04/22 11:12 Chloride IV Infused Q12H OTIS Infusion Piperacillin Sod/T azobactam 50 mls @ 12.5 mls /hr 09/02/22 09:00 09/04/22 15:26 Sod 3.375 gm/ So dium Chloride IV Infused Q8H OTIS Infusion Protocol Metronidazole 500 mg in 100 mls @ 100 mls/hr 09/02/22 14:30 09/04/22 14:54 Flagyl Iv IV Infused Q8H OTIS Infusion Protocol Phenytoin 250 mg/ Sodium 25 mls @ 104 mls/ hr 09/03/22 18:00 09/04/22 11:12 Chloride/ IV Misce llaneous IV Infused Supplies Q8H OTIS Infusion Potassium Chloride /Dextrose 20 meq in 1,000 m ls @ 75 mls/hr 09/04/22 08:00 09/04/22 08:03 Dextrose 5% + Hank l 20 Meq IV 75 mls/hr .[id number] OTIS Administration Lorazepam 1 mg 09/02/22 13:22 09/04/22 11:33 Lorazepam 2 Mg/M l Inj 1 Ml IVP 1 mg Q8H PRN Administration ANXIETY Pantoprazole Sodiu m 40 mg 09/02/22 03:15 09/04/22 04:16 Pantoprazole 40 Mg Sdv IVP 40 mg Q24H OTIS Administration Vancomycin HCl 125 mg 09/02/22 17:00 09/04/22 13:48 Vancomycin 1,000 Mg Oral Tosha (Btl) XX 125 mg QID OTIS Administration Vitals/I&O/Wt Last Vital Signs Temp 99 F 09/04/22 04:00 Pulse 76 09/04/22 14:20 Resp 25 H 09/04/22 12:00 BP 140/69 09/04/22 12:00 Pulse Ox 95 09/04/22 11:35 O2 Del Method 09/04/22 11:35 09/04/22 09/04/22 09/04/22 06:59 14:59 22:59 Intake Total 280 / 1940 675 / 675 50 / 725 Output Total 850 / 2150 850 / 850 Balance -570 / -210 -175 / -175 50 / -125 Weight last 48 hrs Weight 127.8 kg Physical Exam Resp: COMMON NORMALS: clear to auscultation bilaterally EFFORT & INSPECTION: Yes symmetric chest movement AUSCULTATION: clear to auscultation bilaterally Cardio: COMMON NORMALS: regular rate, regular rhythm, S1 normal heart sound present, S2 normal heart sound present, No gallops present (Cardio), No murmurs present (Cardio), No rub (Cardio) and Peripheral pulses 2+ throughout RATE: regular rate RHYTHM: regular rhythm HEART SOUNDS: S1 normal heart sound present and S2 normal heart sound present PERIPHERAL PULSES: Peripheral pulses 2+ throughout GI: OTHER: Distended abdomen, hypoactive bowel sounds, nontender Extremity: COMMON NORMALS: no clubbing, cyanosis or edema and no pedal edema Urinary Catheter Management: Saenz: Cath Placed During This Visit: yes Reason for Continuing Indwelling Catheter: Accurate Measurement of Urinary Output in Critically Ill Patients Urinary Catheter Date of Insertion: 09/02/22 Urinary Catheter Time of Insertion: 12:00 Data 09/04/22 06:02 09/04/22 06:02 Micro: Microbiology 09/01/22 20:30 Urine Culture - Preliminary Urine Catheterized Gram Negative Rods A&P Assessment and plan (1) Yuki's syndrome: (2) Hypokalemia: (3) Abdominal pain: (4) Developmental disorder: (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 Currently being managed for Assessment: C. difficile colitis Abdominal distention concerning for possibility Yuki syndrome: S/p rectal tube placement Fever Acute metabolic encephalopathy Leukocytosis History of epilepsy History of intellectual disability History of breakthrough seizures Hypokalemia secondary to severe diarrhea: Ideally potassium should have been replaced through central line: With double the rate of conventional replacement. With close monitoring. Plan: CT abdomen pelvis w con: Has shown colonic loop dilatation concerning for possible [place] syndrome Blood cultures: NTD Stool C. difficile PCR positive Stool enteric bacterial PCR negative Urine culture gram-negative rods Lactic acid :1.5 Currently patient is on Zosyn, IV metronidazole, will put NG tube and start him on p.o. vancomycin. IV metronidazole will provide some additional coverage for C. difficile.Fidaxomicin would have been my first choice, but due to nonavailability, we are using p.o. vancomycin. Monitor for toxic megacolon. Continue home antiseizure medications (Keppra, phenytoin, lacosamide ) Continue Protonix IV daily Patient has received IV potassium multiple doses, monitor serum potassium: Correct accordingly as it could be contributing to: Bowel dysfunction. Monitor x-ray abdomen Currently n.p.o. except for meds Full code Plan for today: Continue aggressive electrolyte replacement, continue to monitor closely in ICU setting DVT prophylaxis: SCDs, hoping that he does not need any surgical intervention. Attestations Medical Necessity Statement*: Patient is still in hospital for the management C. difficile colitis. Time Spent in Patient Care: Greater than 35 minutes Critical Care Time: The high probability of a clinically significant, sudden or life threatening deterioration of the patient's [] system(s) required my full and direct attention, intervention and personal management. The critical care time is as shown. This time is in addition to time spent performing any reported procedures but includes the following: [x] Data and vital sign review and interpretation [x] Patient assessment, examination and intervention [x] Documentation [x] Medication orders and management Critical Care Time (min): 30 Coding Level of Care Code Acute Information Clerk [employer] for Chg Fwd Exam Expanded Problem Focused Diagnoses [place]'s syndrome K59.81 Hypokalemia E87.6 Abdominal pain R10.9 Developmental disorder F89 Generalized epilepsy G40.309 Frontal lobe epilepsy G40.802 Leukocytosis D72.829 Fever R50.9
[2022-09-04 18:12] LABS: Basophils # 0.1 10^3/uL (0.0-0.1); Basophils % 0.7 %; Eosinophils # 0.2 10^3/uL (0.0-0.8); Eosinophils % 2.5 %; Hematocrit 41.9 % (42.0-52.0); Hemoglobin 13.7 g/dL (11.7-16.6); Lymphocytes # 1.4 10^3/uL (0.8-4.8); Lymphocytes % 14.8 %; Mean Corpuscular HGB Conc 32.7 g/dL (30.0-36.0); Mean Corpuscular Hemoglobin 32.3 pg (28.0-34.0); Mean Corpuscular Volume 98.8 fl (80-94); Mean Platelet Volume 11.4 fL (7.4-10.4); Monocytes # 1.6 10^3/uL (0.2-0.9); Monocytes % 16.7 %; Neutrophils # 6.23 10^3/uL (1.8-7.7); Nucleated Red Blood Cells % 0 %; Platelet Count 196 10^3/cmm (130-400); Red Blood Count 4.24 10^6/uL (4.1-5.3); Red Cell Distribution Width 13.8 % (12.1-15.1); White Blood Count 9.7 10^3/uL (4.0-10.0)
[2022-09-04 18:47] LABS: Alanine Aminotransferase 8 U/L (0-41); Albumin Level 2.9 g/dL (3.5-5.2); Alkaline Phosphatase 76 U/L (40-130); Anion Gap 11.2 (5-19); Aspartate Amino Transferase 11 U/L (0-40); Blood Urea Nitrogen 19 mg/dL (6-20); Calcium 8.6 mg/dL (8.5-10.5); Carbon Dioxide 23 mmol/L (22-29); Chloride 115 mmol/L (98-107); Globulin 3.2 g/dL (1.3-4.6); Glomerular Filtration Rate 227.7 mL/min (90-130); Glucose 120 mg/dL (65-115); Osmolality Calculated 305 mOsm/kg (285-295); Potassium 3.2 mmol/L (3.5-5.1); Sodium 146 mmol/L (136-145); Total Bilirubin 1.2 mg/dL (0.15-1.2); Total Protein 6.1 g/dL (6.6-8.7)
[2022-09-04 19:14] LABS: Slide Review Slide Review Perform
[2022-09-04] MEDS: morphine 4 mg/mL SDV 1 mL 2 MG IVP (19:52)
[2022-09-05] VITALS (25 sets, daily range): BP systolic 95–163; BP diastolic 63–111; PULSE 60–80; RESP 13–28; TEMP 36.5–36.9; O2SAT 89–97
[2022-09-05] MEDS: [UNRECOGNIZED DRUG - REMARK] 100 MG IV ×3 (01:54→17:33)
[2022-09-05] MEDS: piperacillin-tazobactam 3.375 GM in sodium chloride 0.9% (plus) 50 ML IV ×3 (04:00→19:30)
[2022-09-05] MEDS: pantoprazole 40 mg SDV IVP (04:00)
[2022-09-05 06:05] LABS: Alanine Aminotransferase 7 U/L (0-41); Albumin Level 2.7 g/dL (3.5-5.2); Alkaline Phosphatase 64 U/L (40-130); Blood Urea Nitrogen 20 mg/dL (6-20); Calcium 8.2 mg/dL (8.5-10.5); Carbon Dioxide 21 mmol/L (22-29); Chloride 112 mmol/L (98-107); Glomerular Filtration Rate 227.7 mL/min (90-130); Glucose 103 mg/dL (65-115); Osmolality Calculated 301 mOsm/kg (285-295); Sodium 144 mmol/L (136-145); Total Bilirubin 1.1 mg/dL (0.15-1.2); Total Protein 5.7 g/dL (6.6-8.7)
[2022-09-05 06:07] LABS: Anion Gap 14.5 (5-19); Aspartate Amino Transferase 14 U/L (0-40); Potassium 3.5 mmol/L (3.5-5.1)
[2022-09-05] MEDS: metroNIDAZOLE IV 500 MG/100 ML PREMIX 100 MG IV ×3 (06:30→21:11)
[2022-09-05 06:38] LABS: Basophils # 0.1 10^3/uL (0.0-0.1); Basophils % 0.9 %; Eosinophils # 0.4 10^3/uL (0.0-0.8); Eosinophils % 4.1 %; Hematocrit 40.5 % (42.0-52.0); Hemoglobin 13.3 g/dL (11.7-16.6); Lymphocytes # 1.6 10^3/uL (0.8-4.8); Lymphocytes % 16.7 %; Mean Corpuscular HGB Conc 32.8 g/dL (30.0-36.0); Mean Corpuscular Volume 97.4 fl (80-94); Monocytes # 1.5 10^3/uL (0.2-0.9); Monocytes % 16.1 %; Neutrophils # 5.67 10^3/uL (1.8-7.7); Neutrophils % 60.8 %; Nucleated Red Blood Cells % 0 %; Platelet Count 241 10^3/cmm (130-400); Red Blood Count 4.16 10^6/uL (4.1-5.3); White Blood Count 9.3 10^3/uL (4.0-10.0)
[2022-09-05] MEDS: lanolin oint 7 gm 1 APPLIC TOPICAL (07:40)
[2022-09-05] MEDS: lidocaine 1% 5 ML in potassium chloride premix 100 ML 25 ML IV (09:47)
--- NOTE | 2022-09-05 10:13 | PC.SOCIAL ---
IMM update IMM updated with patient's mom, Tiffanie. Copy of page 2 provided. Tiffanie verbalized understanding. Copy in chart initialed, dated and timed.
[2022-09-05] MEDS: dextrose 5% + KCl 20 mEq 20 MEQ/1,000 ML BAG 75 MEQ IV (11:26)
[2022-09-05] MEDS: ketorolac 30 mg/mL INJ 15 MG IVP (12:20)
--- NOTE | 2022-09-05 14:10 | P.PN_ITS ---
Subjective Subjective: Patient was seen and examined this morning, abdominal distention has slightly improved, white blood cell count has normalized, continue to have foul-smelling loose stool, has been afebrile, only noted one episode of T-max of 100.7 on 09/02. Hypokalemia is resolved hypernatremia is resolved. Medications: Reviewed: Yes Medication Review Details: Generic Name Dose Route Start Last Admin Trade Name Freq PRN Reason Stop Dose Admin Levetiracetam 1,50 0 mg/ Sodium 115 mls @ 440 mls /hr 09/02/22 09:00 09/05/22 10:25 Chloride IV Infused Q12H OTIS Infusion Lacosamide 250 mg/ Sodium 75 mls @ 120 mls/ hr 09/02/22 09:00 09/05/22 10:25 Chloride IV Infused Q12H OTIS Infusion Piperacillin Sod/T azobactam 50 mls @ 12.5 mls /hr 09/02/22 09:00 09/05/22 11:26 Sod 3.375 gm/ So dium Chloride IV 12.5 mls/hr Q8H OTIS Administration Protocol Metronidazole 500 mg in 100 mls @ 100 mls/hr 09/02/22 14:30 09/05/22 08:15 Flagyl Iv IV Infused Q8H OTIS Infusion Protocol Phenytoin 250 mg/ Sodium 25 mls @ 104 mls/ hr 09/03/22 18:00 09/05/22 10:24 Chloride/ IV Misce llaneous IV Infused Supplies Q8H OTIS Infusion Potassium Chloride /Dextrose 20 meq in 1,000 m ls @ 75 mls/hr 09/04/22 08:00 09/05/22 11:26 Dextrose 5% + Hank l 20 Meq IV 75 mls/hr .[id number] OTIS Administration Lidocaine HCl 5 ml / Potassium 105 mls @ 25 mls/ hr 09/05/22 10:00 09/05/22 14:06 Chloride IV 09/05/22 14:11 Infused ONCE ONE Infusion Lanolin 1 applic 09/05/22 07:00 09/05/22 07:40 Lanolin Oint 7 G m TOPICAL 1 applic PRN PRN Administration DRYNESS Lorazepam 1 mg 09/02/22 13:22 09/04/22 21:20 Lorazepam 2 Mg/M l Inj 1 Ml IVP 1 mg Q8H PRN Administration ANXIETY Pantoprazole Sodiu m 40 mg 09/02/22 03:15 09/05/22 04:00 Pantoprazole 40 Mg Sdv IVP 40 mg Q24H OTIS Administration Vancomycin HCl 125 mg 09/02/22 17:00 09/05/22 12:21 Vancomycin 1,000 Mg Oral Tosha (Btl) XX 125 mg QID OTIS Administration Vitals/I&O/Wt Last Vital Signs Temp 98.5 F 09/05/22 12:00 Pulse 66 09/05/22 13:00 Resp 21 H 09/05/22 13:00 BP 145/84 09/05/22 13:00 Pulse Ox 93 09/05/22 08:05 O2 Del Method 09/05/22 08:05 09/04/22 09/05/22 09/05/22 22:59 06:59 14:59 Intake Total 1311.25 / 1986.25 280 / 2266.25 1575 / 1575 Output Total 1200 / 2050 1050 / 3100 Balance 111.25 / -63.75 -770 / -833.75 1575 / 1575 Weight last 48 hrs Weight 127.8 kg Weight 127.8 kg Physical Exam Resp: COMMON NORMALS: clear to auscultation bilaterally EFFORT & INSPECTION: Yes symmetric chest movement AUSCULTATION: clear to auscultation bilaterally Cardio: COMMON NORMALS: regular rate, regular rhythm, S1 normal heart sound present, S2 normal heart sound present, No gallops present (Cardio), No murmurs present (Cardio), No rub (Cardio) and Peripheral pulses 2+ throughout RATE: regular rate RHYTHM: regular rhythm HEART SOUNDS: S1 normal heart sound present and S2 normal heart sound present PERIPHERAL PULSES: Peripheral pulses 2+ throughout GI: OTHER: Distended abdomen, hypoactive bowel sounds, nontender Extremity: COMMON NORMALS: no clubbing, cyanosis or edema and no pedal edema Urinary Catheter Management: Saenz: Cath Placed During This Visit: yes Reason for Continuing Indwelling Catheter: Accurate Measurement of Urinary Output in Critically Ill Patients Urinary Catheter Date of Insertion: 09/02/22 Urinary Catheter Time of Insertion: 12:00 Data 09/05/22 06:33 09/05/22 04:15 Micro: Microbiology 09/01/22 20:30 Urine Culture - Preliminary Urine Catheterized Gram Negative Rods A&P Assessment and plan (1) Hinsdale's syndrome: (2) Hypokalemia: (3) Abdominal pain: (4) Developmental disorder: (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 Currently being managed for Assessment: C. difficile colitis (CDI infection severity has been accounted for , currently WBC is less than 15,000, SCR is less than 1.5, no hypotension) Abdominal distention concerning for possibility Yuki syndrome: S/p rectal tube placement Fever Acute metabolic encephalopathy Leukocytosis History of epilepsy History of intellectual disability History of breakthrough seizures Hypokalemia secondary to severe diarrhea: Ideally potassium should have been replaced through central line: With double the rate of conventional replacement. With close monitoring. Plan: CT abdomen pelvis w con: Has shown colonic loop dilatation concerning for possible [place] syndrome Blood cultures: NTD Stool C. difficile PCR positive Stool enteric bacterial PCR negative Urine culture gram-negative rods Lactic acid :1.5 Currently patient is on Zosyn, IV metronidazole, will put NG tube and start him on p.o. vancomycin. IV metronidazole will provide some additional coverage for C. difficile.Fidaxomicin would have been my first choice, but due to nonavailability, we are using p.o. vancomycin. Monitor for toxic megacolon. Continue home antiseizure medications (Keppra, phenytoin, lacosamide ) Will stop Protonix IV daily. In view of C. difficile diarrhea Patient has received IV potassium multiple doses, monitor serum potassium: Co rrect accordingly as it could be contributing to: Bowel dysfunction. Monitor x-ray abdomen Currently n.p.o. except for meds Full code Plan for today: Continue aggressive electrolyte replacement, continue to monitor closely in ICU setting. Follow x-ray KUB every 8 hours. DVT prophylaxis: SCDs, hoping that he does not need any surgical intervention. Attestations Medical Necessity Statement*: Patient is to in hospital for management of C. difficile colitis. Time Spent in Patient Care: Greater than 35 minutes Critical Care Time: The high probability of a clinically significant, sudden or life threatening deterioration of the patient's [] system(s) required my full and direct attention, intervention and personal management. The critical care time is as shown. This time is in addition to time spent performing any reported procedures but includes the following: [x] Data and vital sign review and interpretation [x] Patient assessment, examination and intervention [x] Documentation [x] Medication orders and management The high probability of a clinically significant, sudden or life threatening deterioration of the patient's [] system(s) required my full and direct attention, intervention and personal management. The critical care time is as shown. This time is in addition to time spent performing any reported procedures but includes the following: [x] Data and vital sign review and interpretation [x] Patient assessment, examination and intervention [x] Documentation [x] Medication orders and management Critical Care Time (min): 30 Coding Level of Care Code Acute Branch Associate for Chg Fwd Exam Expanded Problem Focused Diagnoses Hinsdale's syndrome K59.81 Hypokalemia E87.6 Abdominal pain R10.9 Developmental disorder F89 Generalized epilepsy G40.309 Frontal lobe epilepsy G40.802 Leukocytosis D72.829 Fever R50.9
--- NOTE | 2022-09-05 16:54 | PC.NURSE ---
reposition frequently and oral care done head of bed elevated rectal tube brownish red output noted heart monitor sr.. family at bedside sushant care done abdomen remains tight and distended .
--- NOTE | 2022-09-05 22:03 | XRR_ITS ---
PROCEDURE INFORMATION: Exam: XR Abdomen Exam date and time: 09/05/2022 10:12 PM Age: 51 years old Clinical indication: Other: Distention; Additional info: Abd distention TECHNIQUE: Imaging protocol: Radiologic exam of the abdomen. Views: Frontal supine view of the abdomen. 1 View. COMPARISON: CR (ABDOMEN, ) 09/05/2022 2:11 PM FINDINGS: Gastrointestinal tract: Persistent dilated air and stool-filled loops of colon, particularly noteworthy within the cecum which is massively distended. Interval placement of an enteric tube in the expected vicinity of the stomach. Bones/joints: Unremarkable. XR/XR KUB portable [id number] IMPRESSION: Persistent dilated air and stool-filled loops of colon, particularly noteworthy within the cecum which is massively distended. Interval placement of enteric tube in the expected vicinity of the stomach.
--- NOTE | 2022-09-05 22:03 | XRR_ITS ---
PROCEDURE INFORMATION: Exam: XR Abdomen Exam date and time: 09/05/2022 2:11 PM Age: 51 years old Clinical indication: Constipation; Additional info: Abd distention TECHNIQUE: Imaging protocol: Radiologic exam of the abdomen. Views: Frontal supine view of the abdomen. 1 View. COMPARISON: CR XR KUB portable [id number] 09/04/2022 5:26 AM FINDINGS: Gastrointestinal tract: Persistent dilated air and stool-filled loops of colon throughout the abdomen. Bones/joints: Unremarkable. XR/XR KUB portable [id number] IMPRESSION: Persistent dilated air and stool-filled loops of colon throughout the abdomen.
[2022-09-06] VITALS (23 sets, daily range): BP systolic 115–160; BP diastolic 59–95; PULSE 61–80; RESP 17–26; TEMP 36.7–37.3; O2SAT 94–99
[2022-09-06] MEDS: [UNRECOGNIZED DRUG - REMARK] 100 MG IV ×3 (01:48→17:12)
[2022-09-06] MEDS: dextrose 5% + KCl 20 mEq 20 MEQ/1,000 ML BAG 75 MEQ IV ×2 (01:49→17:13)
[2022-09-06] MEDS: piperacillin-tazobactam 3.375 GM in sodium chloride 0.9% (plus) 50 ML IV ×3 (03:56→20:14)
--- NOTE | 2022-09-06 06:03 | XRR_ITS ---
PROCEDURE INFORMATION: Exam: XR Abdomen Exam date and time: 09/06/2022 6:55 AM Age: 51 years old Clinical indication: Constipation; Additional info: Abd distention TECHNIQUE: Imaging protocol: Radiologic exam of the abdomen. Views: Frontal supine view of the abdomen. 1 View. COMPARISON: CR (ABDOMEN, ) 09/05/2022 10:12 PM FINDINGS: Tubes, catheters and devices: Nasogastric tube is seen with tip overlying the right mid abdominal region. Gastrointestinal tract: Severely gas distended loops of bowel are seen in the abdomen without change. Large amount of fecal material is seen in the right abdomen. Similar findings were seen on the prior exam. Evaluation is overall very limited on the exam. Sigmoid volvulus cannot be excluded. Bones/joints: No acute osseous abnormality seen. Soft tissues: No abnormal radiopaque densities. XR/XR KUB portable [id number] IMPRESSION: Limited abdominal portable radiograph. Unchanged severely gas distended loops of bowel, as noted above.
[2022-09-06] MEDS: metroNIDAZOLE IV 500 MG/100 ML PREMIX 100 MG IV ×3 (06:15→22:02)
--- NOTE | 2022-09-06 06:42 | PM.PN ---
Subjective Subjective: Patient was seen and examined this morning, continued to have profuse watery diarrhea, serial x-ray KUB has been done: Which has shown severely dilated bowel loops, unchanged. In view of continued large volume persistent watery diarrhea, will increase the dose of p.o. vancomycin to 500 4 times daily. Medications: Reviewed: Yes Medication Review Details: Generic Name Dose Route Start Last Admin Trade Name Freq PRN Reason Stop Dose Admin Levetiracetam 1,50 0 mg/ Sodium 115 mls @ 440 mls /hr 09/02/22 09:00 09/05/22 10:25 Chloride IV Infused Q12H OTIS Infusion Lacosamide 250 mg/ Sodium 75 mls @ 120 mls/ hr 09/02/22 09:00 09/05/22 10:25 Chloride IV Infused Q12H OTIS Infusion Piperacillin Sod/T azobactam 50 mls @ 12.5 mls /hr 09/02/22 09:00 09/05/22 11:26 Sod 3.375 gm/ So dium Chloride IV 12.5 mls/hr Q8H OTIS Administration Protocol Metronidazole 500 mg in 100 mls @ 100 mls/hr 09/02/22 14:30 09/05/22 08:15 Flagyl Iv IV Infused Q8H OTIS Infusion Protocol Phenytoin 250 mg/ Sodium 25 mls @ 104 mls/ hr 09/03/22 18:00 09/05/22 10:24 Chloride/ IV Misce llaneous IV Infused Supplies Q8H OTIS Infusion Potassium Chloride /Dextrose 20 meq in 1,000 m ls @ 75 mls/hr 09/04/22 08:00 09/05/22 11:26 Dextrose 5% + Hank l 20 Meq IV 75 mls/hr .[id number] OTIS Administration Lidocaine HCl 5 ml / Potassium 105 mls @ 25 mls/ hr 09/05/22 10:00 09/05/22 14:06 Chloride IV 09/05/22 14:11 Infused ONCE ONE Infusion Lanolin 1 applic 09/05/22 07:00 09/05/22 07:40 Lanolin Oint 7 G m TOPICAL 1 applic PRN PRN Administration DRYNESS Lorazepam 1 mg 09/02/22 13:22 09/04/22 21:20 Lorazepam 2 Mg/M l Inj 1 Ml IVP 1 mg Q8H PRN Administration ANXIETY Pantoprazole Sodiu m 40 mg 09/02/22 03:15 09/05/22 04:00 Pantoprazole 40 Mg Sdv IVP 40 mg Q24H OTIS Administration Vancomycin HCl 125 mg 09/02/22 17:00 09/05/22 12:21 Vancomycin 1,000 Mg Oral Tosha (Btl) XX 125 mg QID OTIS Administration Vitals/I&O/Wt Last Vital Signs Temp 98.7 F 09/06/22 04:00 Pulse 62 09/06/22 05:52 Resp 20 H 09/05/22 16:00 BP 133/81 09/05/22 16:00 Pulse Ox 93 09/05/22 08:05 O2 Del Method 09/06/22 04:00 09/05/22 09/05/22 09/06/22 14:59 22:59 06:59 Intake Total 1575 / 1575 390 / 1965 1075 / 3040 Output Total 1200 / 1200 750 / 1950 Balance 1575 / 1575 -810 / 765 325 / 1090 Weight last 48 hrs Weight 128.421 kg Weight 127.8 kg Physical Exam Resp: COMMON NORMALS: clear to auscultation bilaterally EFFORT & INSPECTION: Yes symmetric chest movement AUSCULTATION: clear to auscultation bilaterally Cardio: COMMON NORMALS: regular rate, regular rhythm, S1 normal heart sound present, S2 normal heart sound present, No gallops present (Cardio), No murmurs present (Cardio), No rub (Cardio) and Peripheral pulses 2+ throughout RATE: regular rate RHYTHM: regular rhythm HEART SOUNDS: S1 normal heart sound present and S2 normal heart sound present PERIPHERAL PULSES: Peripheral pulses 2+ throughout GI: OTHER: Distended abdomen, hypoactive bowel sounds, nontender Extremity: COMMON NORMALS: no clubbing, cyanosis or edema and no pedal edema Urinary Catheter Management: Saenz: Cath Placed During This Visit: yes Reason for Continuing Indwelling Catheter: Accurate Measurement of Urinary Output in Critically Ill Patients Urinary Catheter Date of Insertion: 09/02/22 Urinary Catheter Time of Insertion: 12:00 Data 09/05/22 06:33 09/05/22 04:15 Micro: Microbiology 09/01/22 20:30 Urine Culture - Final Urine Catheterized Escherichia coli A&P Assessment and plan (1) Yuki's syndrome: (2) Hypokalemia: (3) Abdominal pain: (4) Developmental disorder: (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 Currently being managed for Assessment: C. difficile colitis (CDI infection severity has been accounted for , currently WBC is less than 15,000, SCR is less than 1.5, no hypotension) Abdominal distention concerning for possibility [place] syndrome: S/p rectal tube placement Fever Acute metabolic encephalopathy Leukocytosis History of epilepsy History of intellectual disability History of breakthrough seizures Hypokalemia secondary to severe diarrhea: Ideally potassium should have been replaced through central line: With double the rate of conventional replacement. With close monitoring. Plan: CT abdomen pelvis w con: Has shown colonic loop dilatation concerning for possible [place] syndrome Blood cultures: NTD Stool C. difficile PCR positive Stool enteric bacterial PCR negative Urine culture gram-negative rods Lactic acid :1.5 Currently patient is on Zosyn, IV metronidazole, will put NG tube and start him on p.o. vancomycin. IV metronidazole will provide some additional coverage for C. difficile.Fidaxomicin would have been my first choice, but due to nonavailability, we are using p.o. vancomycin. Patient does not have recurrent C. difficile: Hence there is no role of Bezlotoxumab Monitor for toxic megacolon. Continue home antiseizure medications (Keppra, phenytoin, lacosamide ) Will stop Protonix IV daily. In view of C. difficile diarrhea. Patient has received IV potassium multiple doses, monitor serum potassium: Correct accordingly as it could be contributing to: Bowel dysfunction. Monitor x-ray abdomen Currently n.p.o. except for meds Full code Plan for today: Continue aggressive electrolyte replacement, continue to monitor closely in ICU setting. Follow x-ray KUB every 8 hours. DVT prophylaxis: SCDs, hoping that he does not need any surgical intervention. Attestations Medical Necessity Statement*: Patient is still in hospital for management of C. difficile colitis. Critical Care Time: The high probability of a clinically significant, sudden or life threatening deterioration of the patient's [] system(s) required my full and direct attention, intervention and personal management. The critical care time is as shown. This time is in addition to time spent performing any reported procedures but includes the following: [x] Data and vital sign review and interpretation [x] Patient assessment, examination and intervention [x] Documentation [x] Medication orders and management Critical Care Time (min): 30 Coding Level of Care Code Acute Director Counseling Bureau for Chg Fwd Exam Expanded Problem Focused Diagnoses [place]'s syndrome K59.81 Hypokalemia E87.6 Abdominal pain R10.9 Developmental disorder F89 Generalized epilepsy G40.309 Frontal lobe epilepsy G40.802 Leukocytosis D72.829 Fever R50.9
[2022-09-06 06:57] LABS: Basophils # 0.1 10^3/uL (0.0-0.1); Basophils % 0.5 %; Eosinophils # 0.5 10^3/uL (0.0-0.8); Eosinophils % 4.9 %; Hematocrit 42.8 % (42.0-52.0); Hemoglobin 13.5 g/dL (11.7-16.6); Lymphocytes # 1.7 10^3/uL (0.8-4.8); Lymphocytes % 17.6 %; Mean Corpuscular HGB Conc 31.5 g/dL (30.0-36.0); Mean Corpuscular Hemoglobin 32.7 pg (28.0-34.0); Mean Corpuscular Volume 103.6 fl (80-94); Mean Platelet Volume 11.1 fL (7.4-10.4); Monocytes # 1.1 10^3/uL (0.2-0.9); Neutrophils # 5.97 10^3/uL (1.8-7.7); Neutrophils % 63.2 %; Nucleated Red Blood Cells % 0 %; Platelet Count 223 10^3/cmm (130-400); Red Blood Count 4.13 10^6/uL (4.1-5.3); Red Cell Distribution Width 14.1 % (12.1-15.1); White Blood Count 9.4 10^3/uL (4.0-10.0)
[2022-09-06 07:01] LABS: Alanine Aminotransferase 7 U/L (0-41); Albumin Level 2.8 g/dL (3.5-5.2); Alkaline Phosphatase 60 U/L (40-130); Aspartate Amino Transferase 13 U/L (0-40); Blood Urea Nitrogen 16 mg/dL (6-20); Calcium 8.3 mg/dL (8.5-10.5); Carbon Dioxide 23 mmol/L (22-29); Chloride 111 mmol/L (98-107); Globulin 2.1 g/dL (1.3-4.6); Glomerular Filtration Rate 227.7 mL/min (90-130); Glucose 95 mg/dL (65-115); Osmolality Calculated 301 mOsm/kg (285-295); Sodium 145 mmol/L (136-145); Total Bilirubin 0.9 mg/dL (0.15-1.2); Total Protein 4.9 g/dL (6.6-8.7)
[2022-09-06 07:05] LABS: Anion Gap 14.2 (5-19)
[2022-09-06 07:06] LABS: Potassium 3.2 mmol/L (3.5-5.1)
[2022-09-06] MEDS: lidocaine 1% 5 ML in potassium chloride premix 100 ML 25 ML IV ×2 (09:08→13:04)
--- NOTE | 2022-09-06 13:33 | PC.NURSE ---
frequent oral care done and repositioned abdomen remains large and tight pt relates not as painful today
--- NOTE | 2022-09-06 14:03 | XRR_ITS ---
PROCEDURE INFORMATION: Exam: XR Abdomen Exam date and time: 09/06/2022 1:57 PM Age: 51 years old Clinical indication: Constipation; Additional info: Abd distention TECHNIQUE: Imaging protocol: Radiologic exam of the abdomen. Views: Frontal supine view of the abdomen. 1 View. COMPARISON: CR (ABDOMEN, ) 09/06/2022 6:55 AM FINDINGS: Tubes, catheters and devices: There is an unchanged orogastric tube with tip in the right medial upper abdomen. Gastrointestinal tract: Severely distended loops of bowel are again identified without significant change. Volvulus versus [place] syndrome cannot be excluded. Intraperitoneal space: There is a large amount of fecal material in the right abdomen. Bones/joints: Unremarkable. XR/XR KUB portable [id number] IMPRESSION: Severely distended loops of bowel are again identified without significant change. There is a large amount of fecal material in the right abdomen. [place] syndrome versus volvulus cannot be excluded.
[2022-09-06 18:19] LABS: Blood Urea Nitrogen 13 mg/dL (6-20); Calcium 8.3 mg/dL (8.5-10.5); Carbon Dioxide 21 mmol/L (22-29); Chloride 110 mmol/L (98-107); Glomerular Filtration Rate 317.4 mL/min (90-130); Glucose 94 mg/dL (65-115); Osmolality Calculated 292 mOsm/kg (285-295); Sodium 141 mmol/L (136-145)
[2022-09-06 18:22] LABS: Anion Gap 13.6 (5-19); Potassium 3.6 mmol/L (3.5-5.1)
[2022-09-07] VITALS (32 sets, daily range): BP systolic 116–158; BP diastolic 70–89; PULSE 56–70; RESP 13–25; TEMP 36.5–36.8; O2SAT 90–99
[2022-09-07] MEDS: [UNRECOGNIZED DRUG - REMARK] 100 MG IV (01:22)
[2022-09-07 03:17] LABS: Basophils # 0.1 10^3/uL (0.0-0.1); Basophils % 0.6 %; Eosinophils # 0.4 10^3/uL (0.0-0.8); Eosinophils % 4.3 %; Hematocrit 40.1 % (42.0-52.0); Hemoglobin 13.3 g/dL (11.7-16.6); Lymphocytes % 21.5 %; Mean Corpuscular HGB Conc 33.2 g/dL (30.0-36.0); Mean Corpuscular Hemoglobin 31.8 pg (28.0-34.0); Mean Corpuscular Volume 95.9 fl (80-94); Mean Platelet Volume 10.4 fL (7.4-10.4); Monocytes # 1.2 10^3/uL (0.2-0.9); Monocytes % 13.1 %; Neutrophils # 5.44 10^3/uL (1.8-7.7); Neutrophils % 58.4 %; Nucleated Red Blood Cells % 0 %; Platelet Count 262 10^3/cmm (130-400); Red Blood Count 4.18 10^6/uL (4.1-5.3); Red Cell Distribution Width 13.5 % (12.1-15.1); White Blood Count 9.3 10^3/uL (4.0-10.0)
[2022-09-07] MEDS: piperacillin-tazobactam 3.375 GM in sodium chloride 0.9% (plus) 50 ML IV (03:55)
[2022-09-07 03:57] LABS: Alanine Aminotransferase 8 U/L (0-41); Albumin Level 2.7 g/dL (3.5-5.2); Alkaline Phosphatase 86 U/L (40-130); Aspartate Amino Transferase 15 U/L (0-40); Blood Urea Nitrogen 12 mg/dL (6-20); Calcium 8.4 mg/dL (8.5-10.5); Carbon Dioxide 25 mmol/L (22-29); Chloride 108 mmol/L (98-107); Globulin 2.6 g/dL (1.3-4.6); Glomerular Filtration Rate 227.7 mL/min (90-130); Glucose 94 mg/dL (65-115); Osmolality Calculated 298 mOsm/kg (285-295); Sodium 144 mmol/L (136-145); Total Bilirubin 1.2 mg/dL (0.15-1.2); Total Protein 5.3 g/dL (6.6-8.7)
[2022-09-07 04:35] LABS: Slide Review Slide Review Perform
--- NOTE | 2022-09-07 05:00 | XRR_ITS ---
PROCEDURE INFORMATION: Exam: XR Abdomen Exam date and time: 09/07/2022 6:18 AM Age: 51 years old Clinical indication: Condition or disease; Intestinal condition; Obstruction; Additional info: Pseudo colonic obstruction TECHNIQUE: Imaging protocol: Radiologic exam of the abdomen. Views: Frontal supine view of the abdomen. 1 View. COMPARISON: CR (ABDOMEN, ) 09/06/2022 1:57 PM FINDINGS: Tubes, catheters and devices: Orogastric tube is seen with tip overlying the right mid abdominal region without change. Gastrointestinal tract: The limited abdominal radiograph shows unchanged severely gas distended loops of bowel in the abdomen. Sigmoid volvulus cannot be excluded. Unchanged moderate gas and fecal material is seen in the ascending colon. Bones/joints: No acute osseous abnormality seen. Soft tissues: No abnormal radiopaque densities. XR/XR KUB portable [id number] IMPRESSION: Unchanged severely gas distended loops of bowel in the abdomen. Sigmoid volvulus cannot be excluded. This may also represent [place]/pseudo obstruction syndrome.
[2022-09-07] MEDS: metroNIDAZOLE IV 500 MG/100 ML PREMIX 100 MG IV ×3 (05:54→22:39)
--- NOTE | 2022-09-07 06:55 | PC.NURSE ---
Bedside report completed with YUKI Philip.
[2022-09-07] MEDS: dextrose 5% + KCl 20 mEq 20 MEQ/1,000 ML BAG 75 MEQ IV (07:38)
[2022-09-07] MEDS: [UNRECOGNIZED DRUG - REMARK] 104 MG IV ×2 (09:11→18:17)
--- NOTE | 2022-09-07 10:05 | CTR_ITS ---
PROCEDURE INFORMATION: Exam: CT Abdomen And Pelvis Without Contrast Exam date and time: 09/07/2022 11:09 AM Age: 51 years old Clinical indication: Condition or disease; Kidney or ureter condition; Patient HX: Assess ileus. Patient with c- diff, fever; Additional info: Follow up on ileus TECHNIQUE: Imaging protocol: Computed tomography of the abdomen and pelvis without contrast. Radiation optimization: All CT scans at this facility use at least one of these dose optimization techniques: automated exposure control; mA and/or kV adjustment per patient size (includes targeted exams where dose is matched to clinical indication); or iterative reconstruction. COMPARISON: CT abdomen pelvis w con* [id number] 09/01/2022 10:31 PM RADIATION DOSE METRICS: Total DLP (mGy-cm): 1524.73 FINDINGS: Tubes, catheters and devices: An enteric tube extends down into the stomach. Rectal tube in place. Saenz catheter in the urinary bladder. Liver: The liver is homogeneous and is not enlarged. Gallbladder and bile ducts: High attenuation material present in the dependent portion of the gallbladder likely due to a combination of cholelithiasis and vicarious excretion of recently administered IV contrast. No biliary ductal dilatation. Pancreas: No peripancreatic inflammation. No pancreatic ductal dilation. Spleen: The spleen is homogeneous and is not enlarged. Adrenal glands: No adrenal mass. Kidneys and ureters: No hydronephrosis. No nephrolithiasis. Renal cysts best demonstrated on this noncontrast exam on the right. There is perirenal edema and fluid, more so on the left. Stomach and bowel: No dilated small bowel. There is a large amount of stool in the proximal colon from the cecum to the mid transverse colon. From the mid transverse colon to the rectosigmoid junction the colon is for the most part distended, up to approximately 13.5 cm as measured on the coronal reconstructions. The degree of colonic distention is not significantly different from the prior comparison exam. There is a short segment at the junction of the descending colon and sigmoid colon which is not distended but does have fluid in the lumen and without a focal transition zone. Similarly there is a segment at the rectosigmoid junction which is not distended but contains fluid in the lumen and has no focal transition zone. No signs of diverticulitis or colitis. No pneumatosis intestinalis. Appendix: The appendix has a normal caliber. There is gas in the lumen. No appendiceal wall thickening or periappendiceal inflammation. Intraperitoneal space: No ascites or pneumoperitoneum. Vasculature: No abdominal aortic aneurysm. Lymph nodes: No pathologically enlarged lymph nodes. Urinary bladder: Decompressed with a Saenz catheter. Reproductive: Unremarkable as visualized. Bones/joints: No acute osseous abnormality. Soft tissues: No acute soft tissue abnormality. CT/CT abdomen pelvis wo con [id number] IMPRESSION: No significant change in predominantly distal colonic distension compatible with an ileus. COMMENTS: Consistent with the [employer]'s Incidental Findings Committee white paper (J Am Lily Radiol 2018): Any incidental renal lesion less than 1 cm or classified as too small to characterize, or any incidental cystic renal lesion characterized as simple-appearing, is likely benign. No follow-up imaging is recommended for these lesions per consensus recommendations based on imaging criteria.
[2022-09-07] MEDS: lacosamide 50 mg Tablet 250 MG NG-TUBE ×2 (10:18→18:12)
--- NOTE | 2022-09-07 11:13 | PC.SOCIAL ---
IMM Update IMM updated with patient's mother. Initialled, dated, timed, and placed in chart.
--- NOTE | 2022-09-07 11:20 | PC.NURSE ---
Pt to CT for abdomen and pelvis. Tolerated well.
--- NOTE | 2022-09-07 12:06 | PC.CHAP ---
Pastoral Care Encounter/Spiritual Assessment Type of Contact [] Declined clinic cma visit [] Patient/Family/Request visit [] Outpatient visit [] Follow-up visit [] Physician referral [] Code/Alert [x] Routine visit [] Staff referral [] Actively dying [] Patient sleeping [] Family support [] [] Out of room [] Palliative care [] [] Receiving care in room [] Pre-surgical visit [] Trauma [] Long length of stay [x] ICU visit [] Other: Relational/Emotional Strength [] Patient feels connected with others/family/visitors/staff [] Distress [] Loneliness/isolation [] Abandonment Spirituality of Patient [] Person of Jaycee [] Attends Catholic of their Jaycee [] Believes in Prayer [] Reads Bible or Mandaeism materials [] There are Spiritual issues to be addressed Kitchen Aide Interventions [x] Prayer [] Active listening [] Non-anxious presence [] Spiritual/emotional support [] Crisis/trauma care [] Spiritual counseling [] Bereavement support [] Provided bereavement packet [] Provided Bible/devotional materials [] Provided toy/stuffed animal, coloring book to patient or family member [] Provided Communion [] Anointing/[place] [] Salvation [x] Completed spiritual assessment [] Other: Impact on Illness or Injury [] Angry [] Fearful [] Anxious [] Often cries [] Exhaustion [] Unable to work [] Unable to attend evangelical [] Unable to walk/stand [] Unable to read [] Unable to drive [] Unable to eat/drink [] Unable to sleep [] Unable to be with family [] Patient intubated [] Other: Summary Time spent with patient
--- NOTE | 2022-09-07 16:12 | PM.PN ---
Subjective Subjective: Patient seen and examined. Still reporting abdominal pain. Rectal tube is putting out liquid stool. Vitals/I&O/Wt Last Vital Signs Temp 97.8 F 09/07/22 11:00 Pulse 65 09/07/22 15:00 Resp 20 H 09/07/22 15:00 BP 116/75 09/07/22 15:00 Pulse Ox 94 09/07/22 15:00 O2 Del Method 09/07/22 15:00 09/07/22 09/07/22 09/07/22 06:59 14:59 22:59 Intake Total 1175 / 3093.333 350 / 350 100 / 450 Output Total 1350 / 3150 Balance -175 / -56.667 350 / 350 100 / 450 Weight last 48 hrs Weight 126 lb 8 oz Weight 283 lb 1.92 oz Physical Exam Narrative: General: No acute distress, awake alert and oriented x3 Abdomen soft, markedly distended, mild left-sided tenderness, no guarding rebound or masses Urinary Catheter Management: Saenz: Cath Placed During This Visit: yes Reason for Continuing Indwelling Catheter: Accurate Measurement of Urinary Output in Critically Ill Patients Urinary Catheter Date of Insertion: 09/02/22 Urinary Catheter Time of Insertion: 12:00 Data 09/07/22 02:17 09/07/22 02:17 Micro: Microbiology 09/01/22 23:23 Blood Culture - Final Blood NO GROWTH AFTER 5 DAYS 09/01/22 23:20 Blood Culture - Final Blood NO GROWTH AFTER 5 DAYS A&P Assessment and plan (1) Clostridium difficile enterocolitis: (2) Colon distention: Plan It is quite possible that he has [place]'s syndrome causing significant colonic distention. No area of obstruction seen. Tomorrow we will perform a decompressive colonoscopy. If there is no obstruction/volvulus, further treatment should be with neostigmine if necessary. Maintain n.p.o. Colonoscopy The risks and benefits of the procedure, including bleeding, infection, intestinal perforation requiring surgery, missed lesion were explained to the patient. The patient is understanding of the risks and wishes to proceed. Attestations Medical Necessity Statement*: Patient requires at least 1 more night of intensive care for C. difficile colitis and colonoscopy in the morning. Coding Level of Care Code Acute Transit Bus Operator for mitchel Avila Diagnoses Clostridium difficile enterocolitis A04.72 Colon distention K63.89
--- NOTE | 2022-09-07 17:26 | PM.PN ---
Subjective Subjective: Complains of abdominal pain. Bowel sounds present however increasing distention is noted. CT of the abdomen and pelvis was performed which shows colonic diameter of 13.5 cm. Medications: Reviewed: Yes Medication Review Details: Generic Name Dose Route Start Last Admin Trade Name Freq PRN Reason Stop Dose Admin Levetiracetam 1,50 0 mg/ Sodium 115 mls @ 440 mls /hr 09/02/22 09:00 09/05/22 10:25 Chloride IV Infused Q12H OTIS Infusion Lacosamide 250 mg/ Sodium 75 mls @ 120 mls/ hr 09/02/22 09:00 09/05/22 10:25 Chloride IV Infused Q12H OTIS Infusion Piperacillin Sod/T azobactam 50 mls @ 12.5 mls /hr 09/02/22 09:00 09/05/22 11:26 Sod 3.375 gm/ So dium Chloride IV 12.5 mls/hr Q8H OTIS Administration Protocol Metronidazole 500 mg in 100 mls @ 100 mls/hr 09/02/22 14:30 09/05/22 08:15 Flagyl Iv IV Infused Q8H OTIS Infusion Protocol Phenytoin 250 mg/ Sodium 25 mls @ 104 mls/ hr 09/03/22 18:00 09/05/22 10:24 Chloride/ IV Misce llaneous IV Infused Supplies Q8H OTIS Infusion Potassium Chloride /Dextrose 20 meq in 1,000 m ls @ 75 mls/hr 09/04/22 08:00 09/05/22 11:26 Dextrose 5% + Hank l 20 Meq IV 75 mls/hr .[id number] OTIS Administration Lidocaine HCl 5 ml / Potassium 105 mls @ 25 mls/ hr 09/05/22 10:00 09/05/22 14:06 Chloride IV 09/05/22 14:11 Infused ONCE ONE Infusion Lanolin 1 applic 09/05/22 07:00 09/05/22 07:40 Lanolin Oint 7 G m TOPICAL 1 applic PRN PRN Administration DRYNESS Lorazepam 1 mg 09/02/22 13:22 09/04/22 21:20 Lorazepam 2 Mg/M l Inj 1 Ml IVP 1 mg Q8H PRN Administration ANXIETY Pantoprazole Sodiu m 40 mg 09/02/22 03:15 09/05/22 04:00 Pantoprazole 40 Mg Sdv IVP 40 mg Q24H OTIS Administration Vancomycin HCl 125 mg 09/02/22 17:00 09/05/22 12:21 Vancomycin 1,000 Mg Oral Tosha (Btl) XX 125 mg QID OTIS Administration Vitals/I&O/Wt Last Vital Signs Temp 97.8 F 09/07/22 11:00 Pulse 65 09/07/22 15:00 Resp 20 H 09/07/22 15:00 BP 116/75 09/07/22 15:00 Pulse Ox 94 09/07/22 15:00 O2 Del Method 09/07/22 15:00 09/07/22 09/07/22 09/07/22 06:59 14:59 22:59 Intake Total 1175 / 3093.333 350 / 350 100 / 450 Output Total 1350 / 3150 Balance -175 / -56.667 350 / 350 100 / 450 Weight last 48 hrs Weight 57.379 kg Weight 128.421 kg Physical Exam Narrative: General: Participates minimally in conversation. However is able to tell me that he has abdominal pain. Onset yes or no to simple questions. HEENT: PERRLA, pupils bilaterally equal and reactive, pallors not present Chest: Normal vesicular breath sounds, no added sounds, equal good air entry bilaterally CVS: S1-S2 regular, no murmurs, no tachycardia, no gallops, no rubs Abdomen: Soft, distended, tympanic Urinary Catheter Management: Saenz: Cath Placed During This Visit: yes Reason for Continuing Indwelling Catheter: Accurate Measurement of Urinary Output in Critically Ill Patients Urinary Catheter Date of Insertion: 09/02/22 Urinary Catheter Time of Insertion: 12:00 Data 09/07/22 02:17 09/07/22 02:17 Micro: Microbiology 09/01/22 23:23 Blood Culture - Final Blood NO GROWTH AFTER 5 DAYS 09/01/22 23:20 Blood Culture - Final Blood NO GROWTH AFTER 5 DAYS A&P Assessment and plan (1) Yuki's syndrome: (2) Hypokalemia: (3) Abdominal pain: (4) Developmental disorder: (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 Currently being managed for Assessment: C. difficile colitis Currently on p.o. vancomycin 500 mg 4 times daily and Flagyl 500 mg IV every 8 hours for severe C. difficile. Abdominal distention concerning for possibility [place] syndrome: S/p rectal tube placement CT abdomen repeated today shows distention at 13.5 cm, concern for developing toxic megacolon. Also noted to have fecal impaction. Will consult surgery again today. Continue NGT to suction until then. Acute metabolic encephalopathy Mentation is now at baseline Leukocytosis History of epilepsy History of intellectual disability History of breakthrough seizures, resume home dose of Vimpat 250 BID Attestations Medical Necessity Statement*: CT abdomen today, surgery consult for possible surgical intervention Critical Care Time: The high probability of a clinically significant, sudden or life threatening deterioration of the patient's [GI] system(s) required my full and direct attention, intervention and personal management. The critical care time is as shown. This time is in addition to time spent performing any reported procedures but includes the following: [x] Data and vital sign review and interpretation [x] Patient assessment, examination and intervention [x] Documentation [x] Medication orders and management Critical Care Time (min): 40 Coding Level of Care Code Acute Revival Clerk for g Fwd Diagnoses [place]'s syndrome K59.81 Hypokalemia E87.6 Abdominal pain R10.9 Developmental disorder F89 Generalized epilepsy G40.309 Frontal lobe epilepsy G40.802 Leukocytosis D72.829 Fever R50.9
--- NOTE | 2022-09-07 18:29 | PC.NURSE ---
Shift Note: Pt rested in bed throughout the shift. He says Yep to every question. He has been rubbing his abdomen occasionally due to the discomfort. NG has been to LIS except for clamped post thoracic medicine physician. He went for CT of abd/pelvis today. Plan is to have a colonoscopy to decompress tomorrow. His urine out put 400ml of pink tinges britt colored urine. Stool in Fecal containment system is pink mucoid in appearance. He remains in sinus rhythm Frequent safety and comfort rounds continue. Orders and/or nursing care completed as indicated. Patient monitored for response to intervention and treatment(s). Education provided includes Plan of care, progress, colonoscopy, flagyl, vimpat and vanc. Patient's freight representative verbalized understanding of all discussed. Will continue to monitor.
--- NOTE | 2022-09-07 19:21 | PC.NURSE ---
Bedside report completed with YUKI Saldana
[2022-09-08] VITALS (33 sets, daily range): BP systolic 91–170; BP diastolic 51–94; PULSE 54–67; RESP 13–25; TEMP 36.1–36.7; O2SAT 91–98
[2022-09-08] MEDS: PHENYTOIN 25 MG/ML 250 MG NG-TUBE ×2 (02:22→10:17)
[2022-09-08] MEDS: dextrose 5% + KCl 20 mEq 20 MEQ/1,000 ML BAG 75 MEQ IV (02:35)
[2022-09-08 04:59] LABS: Basophils # 0.1 10^3/uL (0.0-0.1); Basophils % 1.1 %; Eosinophils # 0.4 10^3/uL (0.0-0.8); Eosinophils % 2.9 %; Hematocrit 44.5 % (42.0-52.0); Hemoglobin 13.8 g/dL (11.7-16.6); Lymphocytes # 2.5 10^3/uL (0.8-4.8); Lymphocytes % 20.5 %; Mean Corpuscular Hemoglobin 31.9 pg (28.0-34.0); Mean Corpuscular Volume 102.8 fl (80-94); Mean Platelet Volume 9.7 fL (7.4-10.4); Monocytes # 1.4 10^3/uL (0.2-0.9); Monocytes % 11.8 %; Neutrophils % 59.6 %; Nucleated Red Blood Cells % 0 %; Platelet Count 262 10^3/cmm (130-400); Red Blood Count 4.33 10^6/uL (4.1-5.3); Red Cell Distribution Width 13.8 % (12.1-15.1); White Blood Count 12.2 10^3/uL (4.0-10.0)
[2022-09-08 05:13] LABS: Alanine Aminotransferase 16 U/L (0-41); Albumin Level 2.8 g/dL (3.5-5.2); Alkaline Phosphatase 69 U/L (40-130); Aspartate Amino Transferase 29 U/L (0-40); Blood Urea Nitrogen 11 mg/dL (6-20); Calcium 7.7 mg/dL (8.5-10.5); Carbon Dioxide 25 mmol/L (22-29); Chloride 105 mmol/L (98-107); Globulin 2.8 g/dL (1.3-4.6); Glomerular Filtration Rate 317.4 mL/min (90-130); Glucose 94 mg/dL (65-115); Osmolality Calculated 293 mOsm/kg (285-295); Sodium 142 mmol/L (136-145); Total Protein 5.6 g/dL (6.6-8.7)
[2022-09-08] MEDS: metroNIDAZOLE IV 500 MG/100 ML PREMIX 100 MG IV ×3 (06:10→23:03)
--- NOTE | 2022-09-08 06:50 | PC.NURSE ---
Bedside report completed with YUKI Saldana.
--- NOTE | 2022-09-08 08:25 | PC.NURSE ---
US guided IV start to right upper arm.
[2022-09-08] MEDS: lacosamide 50 mg Tablet 250 MG NG-TUBE (10:16)
--- NOTE | 2022-09-08 10:32 | PC.CHAP ---
Pastoral Care Encounter/Spiritual Assessment Type of Contact [] Declined airport skilled maintenance supervisor visit [] Patient/Family/Request visit [] Outpatient visit [] Follow-up visit [] Physician referral [] Code/Alert [x] Routine visit [] Staff referral [] Actively dying [x] Patient sleeping [] Family support [] [] Out of room [] Palliative care [] [] Receiving care in room [] Pre-surgical visit [] Trauma [] Long length of stay [x] ICU visit [] Other: Relational/Emotional Strength [] Patient feels connected with others/family/visitors/staff [] Distress [] Loneliness/isolation [] Abandonment Spirituality of Patient [] Person of Jaycee [] Attends Caodaism of their Jaycee [] Believes in Prayer [] Reads Bible or Christian materials [] There are Spiritual issues to be addressed Aircraft Instrument Repairer Interventions [x] Prayer [] Active listening [] Non-anxious presence [] Spiritual/emotional support [] Crisis/trauma care [] Spiritual counseling [] Bereavement support [] Provided bereavement packet [] Provided Bible/devotional materials [] Provided toy/stuffed animal, coloring book to patient or family member [] Provided Communion [] Anointing/[place] [] Salvation [x] Completed spiritual assessment [] Other: Impact on Illness or Injury [] Angry [] Fearful [] Anxious [] Often cries [] Exhaustion [] Unable to work [] Unable to attend faith [] Unable to walk/stand [] Unable to read [] Unable to drive [] Unable to eat/drink [] Unable to sleep [] Unable to be with family [] Patient intubated [] Other: Summary Time spent with patient
--- NOTE | 2022-09-08 16:00 | PC.NURSE ---
GI lab here for pt. PT to GI lab for colonoscopy
--- NOTE | 2022-09-08 16:36 | P.PN_ITS ---
Subjective Subjective: Plan for decompressive colonoscopy this afternoon. Awaiting the same. He has infiltration of his IV on the left arm with some swelling. Medications: Reviewed: Yes Medication Review Details: Generic Name Dose Route Start Last Admin Trade Name Freq PRN Reason Stop Dose Admin Levetiracetam 1,50 0 mg/ Sodium 115 mls @ 440 mls /hr 09/02/22 09:00 09/05/22 10:25 Chloride IV Infused Q12H OTIS Infusion Lacosamide 250 mg/ Sodium 75 mls @ 120 mls/ hr 09/02/22 09:00 09/05/22 10:25 Chloride IV Infused Q12H OTIS Infusion Piperacillin Sod/T azobactam 50 mls @ 12.5 mls /hr 09/02/22 09:00 09/05/22 11:26 Sod 3.375 gm/ So dium Chloride IV 12.5 mls/hr Q8H OTIS Administration Protocol Metronidazole 500 mg in 100 mls @ 100 mls/hr 09/02/22 14:30 09/05/22 08:15 Flagyl Iv IV Infused Q8H OTIS Infusion Protocol Phenytoin 250 mg/ Sodium 25 mls @ 104 mls/ hr 09/03/22 18:00 09/05/22 10:24 Chloride/ IV Misce llaneous IV Infused Supplies Q8H OTIS Infusion Potassium Chloride /Dextrose 20 meq in 1,000 m ls @ 75 mls/hr 09/04/22 08:00 09/05/22 11:26 Dextrose 5% + Hank l 20 Meq IV 75 mls/hr .[id number] OTIS Administration Lidocaine HCl 5 ml / Potassium 105 mls @ 25 mls/ hr 09/05/22 10:00 09/05/22 14:06 Chloride IV 09/05/22 14:11 Infused ONCE ONE Infusion Lanolin 1 applic 09/05/22 07:00 09/05/22 07:40 Lanolin Oint 7 G m TOPICAL 1 applic PRN PRN Administration DRYNESS Lorazepam 1 mg 09/02/22 13:22 09/04/22 21:20 Lorazepam 2 Mg/M l Inj 1 Ml IVP 1 mg Q8H PRN Administration ANXIETY Pantoprazole Sodiu m 40 mg 09/02/22 03:15 09/05/22 04:00 Pantoprazole 40 Mg Sdv IVP 40 mg Q24H OTIS Administration Vancomycin HCl 125 mg 09/02/22 17:00 09/05/22 12:21 Vancomycin 1,000 Mg Oral Tosha (Btl) XX 125 mg QID OTIS Administration Vitals/I&O/Wt Last Vital Signs Temp 97.7 F 09/08/22 08:00 Pulse 63 09/08/22 16:00 Resp 19 H 09/08/22 16:00 BP 151/85 09/08/22 16:00 Pulse Ox 94 09/08/22 16:00 O2 Del Method 09/08/22 16:00 09/08/22 09/08/22 09/08/22 06:59 14:59 22:59 Intake Total 160 / 1860 295 / 295 100 / 395 Output Total 600 / 1425 Balance -440 / 435 295 / 295 100 / 395 Weight last 48 hrs Weight 128.8 kg Weight 57.379 kg Physical Exam Narrative: General: No acute distress, AO 3 HEENT: PERRLA, pupils bilaterally equal and reactive, pallors not present Chest: Normal vesicular breath sounds, no added sounds, equal good air entry bilaterally CVS: S1-S2 regular, no murmurs, no tachycardia, no gallops, no rubs Abdomen: Soft, nontender, no organomegaly, bowel sounds present Neuro: No focal deficits, no facial deformity, AO x3, power 5/5 in all limbs Urinary Catheter Management: Saenz: Cath Placed During This Visit: yes Reason for Continuing Indwelling Catheter: Accurate Measurement of Urinary Output in Critically Ill Patients Urinary Catheter Date of Insertion: 09/02/22 Urinary Catheter Time of Insertion: 12:00 Data 09/08/22 04:43 09/08/22 04:43 A&P Assessment and plan (1) Yuki's syndrome: (2) Hypokalemia: (3) Abdominal pain: (4) Developmental disorder: (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 Currently being managed for: C. difficile colitis Currently on p.o. vancomycin 500 mg 4 times daily and Flagyl 500 mg IV every 8 hours for severe C. difficile. Abdominal distention concerning for possibility [place] syndrome: S/p rectal tube placement CT abdomen repeated shows distention at 13.5 cm, concern for developing toxic megacolon. Also noted to have fecal impaction. Plan for surgical decompression this evening . Has been nPO x nearing a week now. Plan for PICC line and start TPN Acute metabolic encephalopathy Mentation is now at baseline History of epilepsy: continue keppra, vimpat, phenytoin History of intellectual disability History of breakthrough seizures, resume home dose of Vimpat 250 BID Attestations Medical Necessity Statement*: surgical decompression today Coding Level of Care Code Acute Litigation Support Analyst for Chg Fwd Diagnoses Y[place]'s syndrome K59.81 Hypokalemia E87.6 Abdominal pain R10.9 Developmental disorder F89 Generalized epilepsy G40.309 Frontal lobe epilepsy G40.802 Leukocytosis D72.829 Fever R50.9
--- NOTE | 2022-09-08 16:36 | W.PM.OPSUD ---
Surgery/Procedure H&P Update DATE OF PROCEDURE: September 08, 2022 DATE H&P PERFORMED: 09/01/22 PLANNED PROCEDURE: Operation Date: 09/08/22 16:30 Proposed Procedures p Colonoscopy(Not Applicable) - Harman Solomon DO
--- NOTE | 2022-09-08 16:37 | USR_ITS ---
PROCEDURE INFORMATION: Exam: US Duplex Left Upper Extremity Veins, Limited Exam date and time: 09/08/2022 7:28 PM Age: 51 years old Clinical indication: Edema, localized; Upper extremity, left; Patient HX: Patient is developmentally disabled and unable to cooperate. His left upper extremity has progressed to significant edema S/P colonoscopy. ; Additional info: Evaluate for dvt, PT in gi lab at 1730, nurse unsure when PT will be back in room-kb TECHNIQUE: Imaging protocol: Real-time Duplex ultrasound of the Left Upper Extremity with 2-D muniz scale, color Doppler flow and spectral waveform analysis with image documentation. Limited exam focused on the left upper extremity veins. COMPARISON: US soft tissue/extremity [id number] 02/27/2021 8:47 AM FINDINGS: Left deep veins: Occlusive thrombus within the distal left brachial veins. Axillary and mid and proximal brachial veins are patent without thrombus. Visualized internal jugular and subclavian veins are patent. Left superficial veins: Occlusive thrombus within the left basilic vein at the level of the distal humerus. There is occlusive thrombus extending proximally near its junction with the axillary vein throughout its length through the wrist. The left ulnar and radial veins are also thrombosed. Soft tissues: Subcutaneous edema noted in the distal humerus through the forearm and wrist. US/[place] [id number] IMPRESSION: 1. Occlusive DVT within the distal left brachial veins. 2. Occlusive thrombus within the superficial left basilic vein extending proximally near its junction with the axillary vein throughout its length through the wrist. There is also occlusive thrombus within the superficial left basilic vein at the level of the distal humerus. The left ulnar radial veins are also occluded.
--- NOTE | 2022-09-08 16:47 | ANES.PREANE2 ---
Pre-Anesthetic Assessment Height/Weight: Height 1.85 m Weight 128.8 kg Temp Pulse Resp BP Pulse Ox O2 Del Method 97.7 F 63 19 H 151/85 94 09/08/22 08:00 09/08/22 16:00 09/08/22 16:00 09/08/22 16:00 09/08/22 16:00 09/08/22 16:00 Operation Date: 09/08/22 16:30 Proposed Procedures p Colonoscopy(Not Applicable) - Harman Solomon DO Familial anesthetic complications: None Last intake: over a week ago Social No alcohol and No tobacco Exam alert, clear to auscultation bilaterally and regular rate & rhythm Airway Mallampati: Class IV Dentition: other (poor dentition, multiple broken off and rotting) CV/HEM Peripheral Vascular Disease GI colon distention Neuropsych Seizure Anesthetic Plan ASA status: 4 Anesthesia: MAC Risk of > 500 ml blood loss (7ml/kg in children): No Medications/Allergies Home Medications Medication Instructions Recorded Confirmed Last Taken Type Compression hose #1 ea 09/21/20 09/02/22 Unknown Rx Compression hose 07/13/21 09/02/22 Unknown History Diabetic Shoes with 3 pairs of #1 ea 03/23/22 09/02/22 Unknown Rx inserts lacosamide 200 mg tablet (Vimpat) 200 mg PO BID 1 month #60 tabs 06/09/22 09/02/22 Unknown Rx phenytoin 50 mg chewable tablet See Rx Instructions .Route 06/19/22 09/02/22 Unknown Rx .COMPLEX #270 tabs levetiracetam 1,000 mg tablet 1,500 mg PO BID 08/20/22 09/02/22 Unknown History trazodone 100 mg tablet 100 mg PO BEDTIME 08/20/22 09/02/22 Unknown History lacosamide 50 mg tablet 50 mg PO BID #180 tabs 08/21/22 09/02/22 Unknown Rx Allergies Allergy/AdvReac Type Severity Reaction Status Date / Time No Known Allergies Allergy Verified 09/01/22 19:51 Current Medications Generic Name Dose Route Start Last Admin Trade Name Freq PRN Reason Stop Dose Admin Levetiracetam 1,500 mg/ Sodium 115 mls @ 440 mls/hr 09/02/22 09:00 09/08/22 10:25 Chloride IV Infused Q12H OTIS Infusion Metronidazole 500 mg in 100 mls @ 100 mls/hr 09/02/22 14:30 09/08/22 15:30 Flagyl Iv IV Infused Q8H OITS Infusion Protocol Potassium Chloride/Dextrose 20 meq in 1,000 mls @ 50 mls/hr 09/04/22 08:00 09/08/22 02:35 Dextrose 5% + Kcl 20 Meq IV 75 mls/hr .Q20H OTIS Administration Lacosamide 250 mg 09/07/22 09:50 09/08/22 10:16 Lacosamide 50 Mg Tablet NG-TUBE 250 mg BID OTIS Administration Lanolin 1 applic 09/05/22 07:00 09/05/22 07:40 Lanolin Oint 7 Gm TOPICAL 1 applic PRN PRN Administration DRYNESS Phenytoin 250 mg 09/08/22 02:00 09/08/22 10:17 Phenytoin Oral Susp 25 Mg/Ml (Ml) NG-TUBE 250 mg Q8H OTIS Administration Vancomycin HCl 500 mg 09/06/22 17:00 09/08/22 13:01 Vancomycin 1,000 Mg Oral Tosha (Btl) PO 500 mg QID OTIS Administration Additional Medication Information Generic Name Dose Route Start Last Admin Trade Name Freq PRN Reason Stop Dose Admin Levetiracetam 1,500 mg/ Sodium 115 mls @ 440 mls/hr 09/02/22 09:00 09/05/22 10:25 Chloride IV Infused Q12H OTIS Infusion Lacosamide 250 mg/ Sodium 75 mls @ 120 mls/hr 09/02/22 09:00 09/05/22 10:25 Chloride IV Infused Q12H OTIS Infusion Piperacillin Sod/Tazobactam 50 mls @ 12.5 mls/hr 09/02/22 09:00 09/05/22 11:26 Sod 3.375 gm/ Sodium Chloride IV 12.5 mls/hr Q8H OTIS Administration Protocol Metronidazole 500 mg in 100 mls @ 100 mls/hr 09/02/22 14:30 09/05/22 08:15 Flagyl Iv IV Infused Q8H OTIS Infusion Protocol Phenytoin 250 mg/ Sodium 25 mls @ 104 mls/hr 09/03/22 18:00 09/05/22 10:24 Chloride/ IV Miscellaneous IV Infused Supplies Q8H OTIS Infusion Potassium Chloride/Dextrose 20 meq in 1,000 mls @ 75 mls/hr 09/04/22 08:00 09/05/22 11:26 Dextrose 5% + Kcl 20 Meq IV 75 mls/hr .[id number] OTIS Administration Lidocaine HCl 5 ml/ Potassium 105 mls @ 25 mls/hr 09/05/22 10:00 09/05/22 14:06 Chloride IV 09/05/22 14:11 Infused ONCE ONE Infusion Lanolin 1 applic 09/05/22 07:00 09/05/22 07:40 Lanolin Oint 7 Gm TOPICAL 1 applic PRN PRN Administration DRYNESS Lorazepam 1 mg 09/02/22 13:22 09/04/22 21:20 Lorazepam 2 Mg/Ml Inj 1 Ml IVP 1 mg Q8H PRN Administration ANXIETY Pantoprazole Sodium 40 mg 09/02/22 03:15 09/05/22 04:00 Pantoprazole 40 Mg Sdv IVP 40 mg Q24H OTIS Administration Vancomycin HCl 125 mg 09/02/22 17:00 09/05/22 12:21 Vancomycin 1,000 Mg Oral Tosha (Btl) XX 125 mg QID OTIS Administration PFSH Anesthesia Medical History Cellulitis of oral soft tissues Endotracheally intubated Essential hypertension Frontal lobe epilepsy Generalized epilepsy Hypertension Intellectual disability Leukocytosis Morbid obesity Nonhealing nonsurgical wound Peripheral vascular disease Seizure Status epilepticus Venous stasis dermatitis Surgical History S/P vein stripping Family History Father Cancer Lung cancer Mother CAD (coronary artery disease) Other Diabetes Heart disease Hypertension Denies family history of Stroke Social History Smoking and tobacco status: never smoked Second hand smoke exposure: No Smoking risk assessment/counseling performed?: No Alcohol intake: never Desire information about alcohol rehabilitation?: No Counseling given: No Desire information about substance/drug rehabilitation?: No Counseling given: No Caregiver/support person: Yes Lives independently: No Household members: family Marital status: Single service: No Current occupational status: disabled History of recent travel: No Current gender identity: Male Data Anesthesia 09/08/22 04:43 09/08/22 04:43 Short CBC 09/07/22 09/08/22 Range/Units 02:17 04:43 WBC 9.3 12.2 H (4.0-10.0) 10^3/uL Hgb 13.3 13.8 (11.7-16.6) g/dL Hct 40.1 L 44.5 (42.0-52.0) % MCV 95.9 H D 102.8 H D (80-94) fl Plt Count 262 262 (130-400) 10^3/cmm Neut % (Auto) 58.4 59.6 % Neut # (Auto) 5.44 7.30 (1.8-7.7) 10^3/uL BMP 09/06/22 09/07/22 09/08/22 17:45 02:17 04:43 Sodium 141 144 142 Potassium 3.6 3.0 L 3.0 L Chloride 110 H 108 H 105 Carbon Dioxide 21 L 25 25 BUN 13 12 11 Creatinine 0.3 L 0.4 L 0.3 L Glucose 94 94 94 Calcium 8.3 L 8.4 L 7.7 L Liver Function 09/07/22 09/08/22 Range/Units 02:17 04:43 Total Bilirubin 1.2 1.0 (0.15-1.2) mg/dL AST 15 29 (0-40) U/L ALT 8 16 (0-41) U/L Alkaline Phosphatase 86 69 (40-130) U/L Albumin 2.7 L 2.8 L (3.5-5.2) g/dL Cardiac Studies: Echocardiogram 08/20/22
--- NOTE | 2022-09-08 18:00 | PC.NURSE ---
Pt arrives back to ICU from GI lab. Pt smiling and laughing at the TV. Rectal tube no longer present. NG to LIS.
[2022-09-08] MEDS: sodium chloride 0.9% 1,000 ML 100 ML IV (18:28)
--- NOTE | 2022-09-08 19:10 | PC.NURSE ---
Bedside report completed with YUKI Saldana
--- NOTE | 2022-09-08 19:51 | PC.NURSE ---
Shift Note: Pt rested in bed throughout the shift. Most of the day has been uneventful. New IV start to right upper arm with US. Urine dark britt pink tinged with sediment. Colonoscopy completed today. Plans for PICC placement tomorrow. Frequent safety and comfort rounds continue. Orders and/or nursing care completed as indicated. Patient monitored for response to intervention and treatment(s). Education provided includes plan of care, progress, PICC and medications. Patient and/or training representative verbalized understanding to all topics discussed. Will continue to monitor.
[2022-09-08] MEDS: heparin drip 25,000 UNIT/500 ML PREMIX 36 UNIT IV (23:23)
[2022-09-09] VITALS (26 sets, daily range): BP systolic 115–157; BP diastolic 61–98; PULSE 54–68; RESP 10–22; TEMP 35.7–36.9; O2SAT 92–99
[2022-09-09] MEDS: PHENYTOIN 25 MG/ML 250 MG NG-TUBE ×3 (01:32→17:19)
[2022-09-09] MEDS: sodium chloride 0.9% 1,000 ML 100 ML IV ×2 (04:36→15:34)
[2022-09-09 06:06] LABS: Basophils # 0.1 10^3/uL (0.0-0.1); Basophils % 0.6 %; Eosinophils # 0.2 10^3/uL (0.0-0.8); Eosinophils % 1.3 %; Hematocrit 40.2 % (42.0-52.0); Hemoglobin 13.7 g/dL (11.7-16.6); Lymphocytes # 1.6 10^3/uL (0.8-4.8); Mean Corpuscular HGB Conc 34.1 g/dL (30.0-36.0); Mean Corpuscular Hemoglobin 31.8 pg (28.0-34.0); Mean Corpuscular Volume 93.3 fl (80-94); Mean Platelet Volume 10.5 fL (7.4-10.4); Monocytes # 0.7 10^3/uL (0.2-0.9); Monocytes % 6.6 %; Neutrophils # 7.99 10^3/uL (1.8-7.7); Neutrophils % 70.9 %; Nucleated Red Blood Cells % 0 %; Platelet Count 238 10^3/cmm (130-400); Red Blood Count 4.31 10^6/uL (4.1-5.3); Red Cell Distribution Width 13.3 % (12.1-15.1); White Blood Count 11.3 10^3/uL (4.0-10.0)
[2022-09-09] MEDS: metroNIDAZOLE IV 500 MG/100 ML PREMIX 100 MG IV ×3 (06:08→22:34)
[2022-09-09 06:16] LABS: Partial Thromboplastin Time 47.1 SECONDS (23.9-36.7)
[2022-09-09 06:31] LABS: Alanine Aminotransferase 32 U/L (0-41); Alkaline Phosphatase 77 U/L (40-130); Anion Gap 13.2 (5-19); Aspartate Amino Transferase 48 U/L (0-40); Blood Urea Nitrogen 9 mg/dL (6-20); Calcium 7.9 mg/dL (8.5-10.5); Carbon Dioxide 26 mmol/L (22-29); Chloride 104 mmol/L (98-107); Globulin 2.7 g/dL (1.3-4.6); Glomerular Filtration Rate 317.4 mL/min (90-130); Glucose 89 mg/dL (65-115); Osmolality Calculated 288 mOsm/kg (285-295); Potassium 3.2 mmol/L (3.5-5.1); Sodium 140 mmol/L (136-145); Total Bilirubin 0.9 mg/dL (0.15-1.2); Total Protein 5.7 g/dL (6.6-8.7)
[2022-09-09] MEDS: lacosamide 50 mg Tablet 250 MG NG-TUBE ×2 (09:15→17:18)
[2022-09-09] MEDS: potassium chloride premix 100 ML 25 MEQ IV (09:16)
--- NOTE | 2022-09-09 10:23 | PC.CHAP ---
Pastoral Care Encounter/Spiritual Assessment Type of Contact [] Declined production line manager visit [] Patient/Family/Request visit [] Outpatient visit [] Follow-up visit [] Physician referral [] Code/Alert [x] Routine visit [] Staff referral [] Actively dying [] Patient sleeping [] Family support [] [] Out of room [] Palliative care [] [x] Receiving care in room [] Pre-surgical visit [] Trauma [] Long length of stay [x] ICU visit [] Other: Relational/Emotional Strength [] Patient feels connected with others/family/visitors/staff [] Distress [] Loneliness/isolation [] Abandonment Spirituality of Patient [] Person of Jaycee [] Attends Lutheran of their Jaycee [] Believes in Prayer [] Reads Bible or Jain materials [] There are Spiritual issues to be addressed Appetizer Packer Interventions [x] Prayer [] Active listening [] Non-anxious presence [] Spiritual/emotional support [] Crisis/trauma care [] Spiritual counseling [] Bereavement support [] Provided bereavement packet [] Provided Bible/devotional materials [] Provided toy/stuffed animal, coloring book to patient or family member [] Provided Communion [] Anointing/[place] [] Salvation [x] Completed spiritual assessment [] Other: Impact on Illness or Injury [] Angry [] Fearful [] Anxious [] Often cries [] Exhaustion [] Unable to work [] Unable to attend yazdanism [] Unable to walk/stand [] Unable to read [] Unable to drive [] Unable to eat/drink [] Unable to sleep [] Unable to be with family [] Patient intubated [] Other: Summary Time spent with patient
[2022-09-09] MEDS: enoxaparin 120 mg/0.8 mL Syringe SUBCUT (13:16)
[2022-09-09 13:54] LABS: Partial Thromboplastin Time 29.7 SECONDS (23.9-36.7)
--- NOTE | 2022-09-09 14:34 | XR_ITS ---
WS: [id number] XR chest 1V portable [id number] REASON FOR EXAM: Post PICC insertion FINDINGS: Left arm PICC line placement. The tip of the PICC line is in the superior vena cava just above the ri ght atrium. XR/XR chest 1V portable [id number] IMPRESSION: Proper left arm PICC line placement. This report was called to the radiology te chnologist performing the chest x-ray at bedside. The report was understood and the PICC line nurse was to be informed.
--- NOTE | 2022-09-09 14:45 | PC.NURSE ---
Triple lumen PICC placed to left brachial vein without difficulty. Trimmed catheter length 47 cm with 3.5 cm external length noted. Mid arm circumference noted at 35 cm measured 10 cm from left AC space. Report given to patient care nurse. Dressing due to be changed 09/10/22.
--- NOTE | 2022-09-09 15:25 | PM.PN ---
Subjective Subjective: Patient underwent decompressive colonoscopy yesterday. Findings from proximal ascending colon to rectum included severe colitis consistent with toxic megacolon throughout. Patient tolerated the procedure well overall and returned to the ICU. Upper extremity Doppler of the left arm revealed extensive superficial and deep venous thrombosis. Medications: Reviewed: Yes Medication Review Details: Generic Name Dose Route Start Last Admin Trade Name Freq PRN Reason Stop Dose Admin Levetiracetam 1,50 0 mg/ Sodium 115 mls @ 440 mls /hr 09/02/22 09:00 09/05/22 10:25 Chloride IV Infused Q12H OTIS Infusion Lacosamide 250 mg/ Sodium 75 mls @ 120 mls/ hr 09/02/22 09:00 09/05/22 10:25 Chloride IV Infused Q12H OTIS Infusion Piperacillin Sod/T azobactam 50 mls @ 12.5 mls /hr 09/02/22 09:00 09/05/22 11:26 Sod 3.375 gm/ So dium Chloride IV 12.5 mls/hr Q8H OTIS Administration Protocol Metronidazole 500 mg in 100 mls @ 100 mls/hr 09/02/22 14:30 09/05/22 08:15 Flagyl Iv IV Infused Q8H OTIS Infusion Protocol Phenytoin 250 mg/ Sodium 25 mls @ 104 mls/ hr 09/03/22 18:00 09/05/22 10:24 Chloride/ IV Misce llaneous IV Infused Supplies Q8H OTIS Infusion Potassium Chloride /Dextrose 20 meq in 1,000 m ls @ 75 mls/hr 09/04/22 08:00 09/05/22 11:26 Dextrose 5% + Hank l 20 Meq IV 75 mls/hr .[id number] OTIS Administration Lidocaine HCl 5 ml / Potassium 105 mls @ 25 mls/ hr 09/05/22 10:00 09/05/22 14:06 Chloride IV 09/05/22 14:11 Infused ONCE ONE Infusion Lanolin 1 applic 09/05/22 07:00 09/05/22 07:40 Lanolin Oint 7 G m TOPICAL 1 applic PRN PRN Administration DRYNESS Lorazepam 1 mg 09/02/22 13:22 09/04/22 21:20 Lorazepam 2 Mg/M l Inj 1 Ml IVP 1 mg Q8H PRN Administration ANXIETY Pantoprazole Sodiu m 40 mg 09/02/22 03:15 09/05/22 04:00 Pantoprazole 40 Mg Sdv IVP 40 mg Q24H OTIS Administration Vancomycin HCl 125 mg 09/02/22 17:00 09/05/22 12:21 Vancomycin 1,000 Mg Oral Tosha (Btl) XX 125 mg QID OTIS Administration Vitals/I&O/Wt Last Vital Signs Temp 96.7 F L 09/09/22 04:00 Pulse 62 09/09/22 13:42 Resp 16 09/09/22 12:00 BP 135/70 09/09/22 12:00 Pulse Ox 95 09/09/22 12:00 O2 Del Method 09/09/22 08:52 O2 Flow Rate 3 09/08/22 18:30 09/09/22 09/09/22 09/09/22 06:59 14:59 22:59 Intake Total 1120 / 1700 215 / 215 Output Total 850 / 1800 450 / 450 Balance 270 / -100 -235 / -235 Weight last 48 hrs Weight 128.6 kg Weight 128.8 kg Physical Exam Narrative: General: No acute distress, AO x2-3 HEENT: PERRLA, pupils bilaterally equal and reactive, pallors not present Chest: Normal vesicular breath sounds, no added sounds, equal good air entry bilaterally CVS: S1-S2 regular, no murmurs, no tachycardia, no gallops, no rubs Abdomen: Soft, distended, scattered bowel sounds present Urinary Catheter Management: Saenz: Cath Placed During This Visit: yes Reason for Continuing Indwelling Catheter: Accurate Measurement of Urinary Output in Critically Ill Patients Urinary Catheter Date of Insertion: 09/02/22 Urinary Catheter Time of Insertion: 12:00 Data 09/09/22 05:50 09/09/22 05:50 A&P Assessment and plan (1) Clostridium difficile enterocolitis: Patient admitted on September 01, 2022 with chief complaints of abdominal pain distention CT abdomen upon presentation showing markedly dilated sigmoid colon measuring up to 15 cm with an apparent transition point in the distal sigmoid colon. CT repeated on September 07, 2022 because of increased abdominal distention showed persistent colonic distention from mid transverse colon to rectosigmoid junction, measuring approximately 13.5 cm. Large amount of stool seen in the proximal colon. Overall clinical picture is compatible with that of fulminant C. difficile colitis with toxic megacolon. Completed colonoscopy yesterday with diffuse generalized colitis compatible with toxic megacolon. Patient has been on treatment with p.o. vancomycin 500 mg 4 times daily and IV Flagyl 500 mg 3 times a day. Given no significant improvement with above medical therapy, will add rectal vancomycin 500 mg every 6 hours as a retention enema additionally. Above is a bit to maximize conservative medical measures. Patient currently also on IV hydration, normal saline at 75 cc an hour, rate was reduced yesterday due to concern for developing anasarca. He has been n.p.o. since admission, awaiting placement of PICC line today to start TPN. We will discontinue additional IV fluids once TPN starts as concern that patient may start developing pulmonary edema. Appreciate surgical recommendations. Currently on steroids per surgery recommendations given patches of ischemic colitis noted. May need to consider colectomy if fails to improve with medical interventions. (2) Toxic megacolon: As a result of C. difficile colitis treatment as above (3) Hypokalemia: Replete with 40 mEq IV today (4) DVT (deep venous thrombosis): Deep venous thrombosis of the left upper extremity, occlusive, involving the distal left brachial veins. Superficial thrombus additionally seen in left basilic vein. This was a site of a previous IV line. Low suspicion for DIC Patient had been started on heparin infusion yesterday. We will discontinue heparin drip and start patient instead on Lovenox 1 mg/kg every 12 hours to minimize the fluid load. Additionally there is an anticipated shortage of heparin. Of note the DVT developed on heparin prophylaxis 5000 every 12 hours. (5) Developmental disorder: (6) Generalized epilepsy: No breakthrough seizures currently. Continue his home doses of phenytoin, Keppra and lacosamide Attestations Medical Necessity Statement*: Patient needs to remain in ICU in view of toxic megacolon. Maximizing medical measures, addition of rectal vancomycin today, closely monitor for improvement Critical Care Time: The high probability of a clinically significant, sudden or life threatening deterioration of the patient's [GI, neuro] system(s) required my full and direct attention, intervention and personal management. The critical care time is as shown. This time is in addition to time spent performing any reported procedures but includes the following: [x] Data and vital sign review and interpretation [x] Patient assessment, examination and intervention [x] Documentation [x] Medication orders and management Critical Care Time (min): 45 Coding Level of Care Code Acute Physician Specialist for [facility]g Fwd Diagnoses Clostridium difficile enterocolitis A04.72 Toxic megacolon K59.31 Hypokalemia E87.6 DVT (deep venous thrombosis) I82.409 Developmental disorder F89 Generalized epilepsy G40.309
[2022-09-09] MEDS: vancomycin 500 MG in sodium chloride 0.9% (100 ml) 100 ML 200 MG PR ×2 (16:12→21:32)
--- NOTE | 2022-09-09 16:47 | PM.PN ---
Subjective Subjective: Patient seen and examined. He reports that his abdominal pain is still present but improved. Denies any bowel movement or flatus. Vitals/I&O/Wt Last Vital Signs Temp 96.7 F L 09/09/22 04:00 Pulse 65 09/09/22 15:00 Resp 16 09/09/22 15:00 BP 133/84 09/09/22 15:00 Pulse Ox 95 09/09/22 15:00 O2 Del Method 09/09/22 08:52 O2 Flow Rate 3 09/08/22 18:30 09/09/22 09/09/22 09/09/22 06:59 14:59 22:59 Intake Total 1120 / 1700 1315 / 1315 Output Total 850 / 1800 450 / 450 Balance 270 / -100 865 / 865 Weight last 48 hrs Weight 283 lb 8.231 oz Weight 283 lb 15.286 oz Physical Exam Narrative: General: No acute distress, awake and alert Abdomen: Soft, nontender, distended but improved after decompression, no guarding rebound or masses Urinary Catheter Management: Saenz: Cath Placed During This Visit: yes Reason for Continuing Indwelling Catheter: Accurate Measurement of Urinary Output in Critically Ill Patients Urinary Catheter Date of Insertion: 09/02/22 Urinary Catheter Time of Insertion: 12:00 Data 09/09/22 05:50 09/09/22 05:50 A&P Assessment and plan (1) Clostridium difficile enterocolitis: (2) Pseudomembranous colitis: (3) Toxic megacolon: Plan Agree with current medical management including adding rectal vancomycin. We will likely consider tube feeding via NG tube tomorrow if he continues to improve with steroids and antibiotics. If he is not continue to improve and have bowel function in the next 2 to 4 days, he will need a subtotal colectomy with end ileostomy. TPN N.p.o. NG tube to low remittent wall suction Attestations Medical Necessity Statement*: Patient requires multiple more nights in the hospital care for intensive care and aggressive treatment for his toxic megacolon Coding Level of Care Code Acute Corporate Responsibility Officer for [facility] Diagnoses Clostridium difficile enterocolitis A04.72 Pseudomembranous colitis A04.72 Toxic megacolon K59.31
[2022-09-09] MEDS: AA-Dex 5%-20% w/Lytes 1,000 ML 13 ML IV (23:03)
[2022-09-10] VITALS (26 sets, daily range): BP systolic 102–158; BP diastolic 57–90; PULSE 53–660; RESP 14–24; TEMP 36.1–36.9; O2SAT 92–98
[2022-09-10] MEDS: sodium chloride 0.9% 1,000 ML 100 ML IV (02:19)
[2022-09-10] MEDS: enoxaparin 120 mg/0.8 mL Syringe SUBCUT ×2 (02:19→12:54)
[2022-09-10] MEDS: PHENYTOIN 25 MG/ML 250 MG NG-TUBE ×3 (02:20→18:15)
[2022-09-10 03:42] LABS: Basophils # 0.1 10^3/uL (0.0-0.1); Basophils % 0.5 %; Eosinophils # 0.1 10^3/uL (0.0-0.8); Eosinophils % 0.4 %; Hematocrit 38.7 % (42.0-52.0); Lymphocytes # 2.4 10^3/uL (0.8-4.8); Lymphocytes % 17.6 %; Mean Corpuscular HGB Conc 33.6 g/dL (30.0-36.0); Mean Corpuscular Hemoglobin 31.7 pg (28.0-34.0); Mean Corpuscular Volume 94.4 fl (80-94); Mean Platelet Volume 10.4 fL (7.4-10.4); Neutrophils # 9.34 10^3/uL (1.8-7.7); Neutrophils % 67.9 %; Nucleated Red Blood Cells % 0 %; Platelet Count 292 10^3/cmm (130-400); Red Cell Distribution Width 13.4 % (12.1-15.1); White Blood Count 13.8 10^3/uL (4.0-10.0)
[2022-09-10 04:14] LABS: Alanine Aminotransferase 62 U/L (0-41); Alkaline Phosphatase 78 U/L (40-130); Blood Urea Nitrogen 13 mg/dL (6-20); Calcium 7.9 mg/dL (8.5-10.5); Carbon Dioxide 25 mmol/L (22-29); Chloride 104 mmol/L (98-107); Globulin 2.7 g/dL (1.3-4.6); Glomerular Filtration Rate 317.4 mL/min (90-130); Glucose 97 mg/dL (65-115); Magnesium 2.3 mg/dL (1.7-2.3); NT Pro B Type Natriuretic Pept 119 pg/mL (0-125); Osmolality Calculated 292 mOsm/kg (285-295); Sodium 141 mmol/L (136-145); Total Bilirubin 0.8 mg/dL (0.15-1.2); Total Protein 5.7 g/dL (6.6-8.7)
[2022-09-10 04:29] LABS: Anion Gap 15.5 (5-19); Aspartate Amino Transferase 85 U/L (0-40); Potassium 3.5 mmol/L (3.5-5.1)
[2022-09-10] MEDS: metroNIDAZOLE IV 500 MG/100 ML PREMIX 100 MG IV ×3 (06:08→21:39)
--- NOTE | 2022-09-10 08:17 | PC.NURSE ---
TPN running at 73ml/hr when care resumed at shift change. Orders reviewed, consulted with pharmacy. Goal rate of 83ml/hr to be reached in 24 hours per pharmacy. Will titrate per this recommendation.
--- NOTE | 2022-09-10 08:50 | P.PN_ITS ---
Subjective Subjective: Patient states his abdominal pain is improving today. His belly is softer compared to prior. NGT output 650 cc over last shift. White blood cell count at 13.8. Afebrile. Hemoglobin stable. Transaminitis worsening with AST ALT at 85 and 62. TPN was started yesterday. Medications: Reviewed: Yes Medication Review Details: Generic Name Dose Route Start Last Admin Trade Name Freq PRN Reason Stop Dose Admin Levetiracetam 1,50 0 mg/ Sodium 115 mls @ 440 mls /hr 09/02/22 09:00 09/05/22 10:25 Chloride IV Infused Q12H OTIS Infusion Lacosamide 250 mg/ Sodium 75 mls @ 120 mls/ hr 09/02/22 09:00 09/05/22 10:25 Chloride IV Infused Q12H OTIS Infusion Piperacillin Sod/T azobactam 50 mls @ 12.5 mls /hr 09/02/22 09:00 09/05/22 11:26 Sod 3.375 gm/ So dium Chloride IV 12.5 mls/hr Q8H OTIS Administration Protocol Metronidazole 500 mg in 100 mls @ 100 mls/hr 09/02/22 14:30 09/05/22 08:15 Flagyl Iv IV Infused Q8H OTIS Infusion Protocol Phenytoin 250 mg/ Sodium 25 mls @ 104 mls/ hr 09/03/22 18:00 09/05/22 10:24 Chloride/ IV Misce llaneous IV Infused Supplies Q8H OTIS Infusion Potassium Chloride /Dextrose 20 meq in 1,000 m ls @ 75 mls/hr 09/04/22 08:00 09/05/22 11:26 Dextrose 5% + Hank l 20 Meq IV 75 mls/hr .[id number] OTIS Administration Lidocaine HCl 5 ml / Potassium 105 mls @ 25 mls/ hr 09/05/22 10:00 09/05/22 14:06 Chloride IV 09/05/22 14:11 Infused ONCE ONE Infusion Lanolin 1 applic 09/05/22 07:00 09/05/22 07:40 Lanolin Oint 7 G m TOPICAL 1 applic PRN PRN Administration DRYNESS Lorazepam 1 mg 09/02/22 13:22 09/04/22 21:20 Lorazepam 2 Mg/M l Inj 1 Ml IVP 1 mg Q8H PRN Administration ANXIETY Pantoprazole Sodiu m 40 mg 09/02/22 03:15 09/05/22 04:00 Pantoprazole 40 Mg Sdv IVP 40 mg Q24H OTIS Administration Vancomycin HCl 125 mg 09/02/22 17:00 09/05/22 12:21 Vancomycin 1,000 Mg Oral Tosha (Btl) XX 125 mg QID OTIS Administration Vitals/I&O/Wt Last Vital Signs Temp 97.5 F L 09/10/22 04:00 Pulse 660 H 09/10/22 08:13 Resp 18 09/10/22 06:00 BP 148/86 09/10/22 06:00 Pulse Ox 96 09/10/22 08:13 O2 Del Method 09/10/22 08:13 O2 Flow Rate 3 09/08/22 18:30 09/09/22 09/10/22 09/10/22 22:59 06:59 14:59 Intake Total 285 / 1600 1220 / 2820 Output Total 250 / 700 1150 / 1850 Balance 35 / 900 70 / 970 Weight last 48 hrs Weight 129.1 kg Weight 128.6 kg Physical Exam Narrative: General: No acute distress, AO x2 HEENT: PERRLA, pupils bilaterally equal and reactive, pallors not present Chest: Normal vesicular breath sounds, no added sounds, equal good air entry bilaterally CVS: S1-S2 regular, no murmurs, no tachycardia, no gallops, no rubs Abdomen: Distended, softer compared to prior exams. Neuro: No focal deficits, at baseline mentation Urinary Catheter Management: Saenz: Cath Placed During This Visit: yes Reason for Continuing Indwelling Catheter: Accurate Measurement of Urinary Output in Critically Ill Patients Urinary Catheter Date of Insertion: 09/02/22 Urinary Catheter Time of Insertion: 12:00 Data 09/10/22 03:25 09/10/22 03:25 Other data: s/p Zosyn 09/02-09/07. Discontinued as no evidence of infection at other sites except C diff, for which it would be best to d/c other abx. A&P Assessment and plan (1) Clostridium difficile enterocolitis: Patient admitted on September 01, 2022 with chief complaints of abdominal pain distention CT abdomen upon presentation showing markedly dilated sigmoid colon measuring up to 15 cm with an apparent transition point in the distal sigmoid colon. CT repeated on September 07, 2022 because of increased abdominal distention showed persistent colonic distention from mid transverse colon to rectosigmoid junction, measuring approximately 13.5 cm. Large amount of stool seen in the proximal colon. Overall clinical picture is compatible with that of fulminant C. difficile colitis with toxic megacolon. Completed colonoscopy on 09/08 with diffuse generalized colitis compatible with toxic megacolon. Patient has been on treatment with p.o. vancomycin 500 mg 4 times daily and IV Flagyl 500 mg 3 times a day since 09/02/22 Given no significant improvement with above medical therapy, added rectal vancomycin 500 mg every 6 hours as a retention enema on 09/08. Started on TPN after placing PICC line on 09/09. Start tube feeding diet today patient states abdominal pain is better today Appreciate surgical recommendations. Currently on steroids per surgery recommendations given patches of ischemic colitis noted. Taper down to solumedr ol 40mg iv q12h. Add protonix 40mg iv q12h for PUD ppx. May need to consider colectomy if fails to improve with medical interventions. (2) Toxic megacolon: As a result of C. difficile colitis; treatment as above (3) Hypokalemia: repleted (4) DVT (deep venous thrombosis): Deep venous thrombosis of the left upper extremity, occlusive, involving the distal left brachial veins. Superficial thrombus additionally seen in left basilic vein. This was a site of a previous IV line. Low suspicion for DIC Currently on Lovenox 1 mg/kg every 12 hours . Of note the DVT developed on heparin prophylaxis 5000 every 12 hours. (5) Developmental disorder: (6) Generalized epilepsy: No breakthrough seizures currently. Continue his home doses of phenytoin, Keppra and lacosamide Attestations Medical Necessity Statement*: needs continued hospitalization for fulminant colitis, close monitoring, return of bowel function Critical Care Time: The high probability of a clinically significant, sudden or life threatening deterioration of the patient's [GI,neuro] system(s) required my full and direct attention, intervention and personal management. The critical care time is as shown. This time is in addition to time spent performing any reported procedures but includes the following: [x] Data and vital sign review and interpretation [x] Patient assessment, examination and intervention [x] Documentation [x] Medication orders and management Critical Care Time (min): 45 Coding Level of Care Code Acute Building Performance Specialist for [facility] Fwd Diagnoses Clostridium difficile enterocolitis A04.72 Toxic megacolon K59.31 Hypokalemia E87.6 DVT (deep venous thrombosis) I82.409 Developmental disorder F89 Generalized epilepsy G40.309
[2022-09-10] MEDS: lacosamide 50 mg Tablet 250 MG NG-TUBE ×2 (09:16→18:15)
[2022-09-10] MEDS: pantoprazole 40 mg SDV IVP ×2 (09:19→20:50)
--- NOTE | 2022-09-10 10:45 | PC.NUTR ---
Received TF consult. Current TF order is Jevity 1.2 with goal rate of 40 mls/hr. Recommend consideration of Osmolite 1.2 which would be easier to tolerate, beginning @ 10 mls/hr and having a goal rate of 50 mls/hr with fresh water flushes of 100 mls Q4H or per MD discretion. Details in RD assessment.
--- NOTE | 2022-09-10 14:00 | PM.PN ---
Subjective Subjective: Patient reports that his abdominal pain has improved and he would like to go home. Denies any nausea or emesis. Vitals/I&O/Wt Last Vital Signs Temp 97.5 F L 09/10/22 04:00 Pulse 660 H 09/10/22 08:13 Resp 18 09/10/22 06:00 BP 148/86 09/10/22 06:00 Pulse Ox 96 09/10/22 08:13 O2 Del Method 09/10/22 08:13 O2 Flow Rate 3 09/08/22 18:30 09/09/22 09/10/22 09/10/22 22:59 06:59 14:59 Intake Total 285 / 1600 1220 / 2820 315 / 315 Output Total 250 / 700 1150 / 1850 Balance 35 / 900 70 / 970 315 / 315 Weight last 48 hrs Weight 284 lb 9.868 oz Weight 283 lb 8.231 oz Physical Exam Narrative: General: No acute distress, awake and alert Abdomen: Soft, nontender, distended but improved after decompression, no guarding rebound or masses Urinary Catheter Management: Saenz: Cath Placed During This Visit: yes Reason for Continuing Indwelling Catheter: Accurate Measurement of Urinary Output in Critically Ill Patients Urinary Catheter Date of Insertion: 09/02/22 Urinary Catheter Time of Insertion: 12:00 Data 09/10/22 03:25 09/10/22 03:25 A&P Assessment and plan (1) Clostridium difficile enterocolitis: (2) Pseudomembranous colitis: (3) Toxic megacolon: Plan Continue NGT to LIWS for now. We will reevaluate this afternoon for possible start of tube feeding If he does not continue to improve, he will need a subtotal colectomy with end ileostomy. TPN Medical management per hospitalist Attestations Medical Necessity Statement*: Patient requires additional nights in the hospital for IV and oral antibiotics along with intensive care for toxic megacolon Coding Level of Care Code Acute Code for [facility] Fwd Diagnoses Clostridium difficile enterocolitis A04.72 Pseudomembranous colitis A04.72 Toxic megacolon K59.31
[2022-09-10 16:30] LABS: Hematocrit 40.5 % (42.0-52.0); Hemoglobin 12.7 g/dL (11.7-16.6)
[2022-09-10] MEDS: AA-Dex 5%-20% w/Lytes 1,000 ML 73 ML IV (21:03)
[2022-09-11] VITALS (24 sets, daily range): BP systolic 97–152; BP diastolic 52–92; PULSE 52–62; RESP 13–27; TEMP 36.6–37.1; O2SAT 95–99
[2022-09-11] MEDS: enoxaparin 120 mg/0.8 mL Syringe SUBCUT ×2 (00:48→12:53)
[2022-09-11] MEDS: PHENYTOIN 25 MG/ML 250 MG NG-TUBE ×3 (01:27→17:53)
[2022-09-11 03:54] LABS: Basophils # 0.1 10^3/uL (0.0-0.1); Basophils % 0.6 %; Eosinophils # 0.1 10^3/uL (0.0-0.8); Eosinophils % 0.7 %; Hematocrit 38.8 % (42.0-52.0); Hemoglobin 13.2 g/dL (11.7-16.6); Lymphocytes # 1.5 10^3/uL (0.8-4.8); Lymphocytes % 13.6 %; Mean Corpuscular Hemoglobin 32.5 pg (28.0-34.0); Mean Corpuscular Volume 95.6 fl (80-94); Mean Platelet Volume 10.4 fL (7.4-10.4); Monocytes # 0.8 10^3/uL (0.2-0.9); Monocytes % 7.3 %; Neutrophils # 7.64 10^3/uL (1.8-7.7); Nucleated Red Blood Cells % 0 %; Platelet Count 284 10^3/cmm (130-400); Red Blood Count 4.06 10^6/uL (4.1-5.3); Red Cell Distribution Width 13.7 % (12.1-15.1); White Blood Count 10.9 10^3/uL (4.0-10.0)
[2022-09-11 04:40] LABS: Alanine Aminotransferase 87 U/L (0-41); Albumin Level 3.2 g/dL (3.5-5.2); Alkaline Phosphatase 79 U/L (40-130); Blood Urea Nitrogen 10 mg/dL (6-20); Carbon Dioxide 30 mmol/L (22-29); Chloride 103 mmol/L (98-107); Globulin 2.7 g/dL (1.3-4.6); Glomerular Filtration Rate 317.4 mL/min (90-130); Glucose 140 mg/dL (65-115); Osmolality Calculated 293 mOsm/kg (285-295); Sodium 141 mmol/L (136-145); Total Bilirubin 0.6 mg/dL (0.15-1.2); Total Protein 5.9 g/dL (6.6-8.7)
[2022-09-11 04:44] LABS: Anion Gap 11.5 (5-19)
[2022-09-11 04:45] LABS: Aspartate Amino Transferase 101 U/L (0-40); Potassium 3.5 mmol/L (3.5-5.1)
[2022-09-11] MEDS: metroNIDAZOLE IV 500 MG/100 ML PREMIX 100 MG IV ×3 (05:43→22:06)
[2022-09-11 06:27] LABS: Slide Review Slide Review Perform
[2022-09-11] MEDS: lacosamide 50 mg Tablet 250 MG NG-TUBE ×2 (09:06→17:53)
[2022-09-11] MEDS: pantoprazole 40 mg SDV IVP ×2 (09:07→21:59)
[2022-09-11] MEDS: AA-Dex 5%-20% w/Lytes 1,000 ML 83 ML IV (09:17)
--- NOTE | 2022-09-11 13:55 | P.PN_ITS ---
Subjective Subjective: Patient started on tube feeding diet today as his NGT output has reduced to around 200. Has mild abdominal pain today.He is afebrile and hemodynamically stable. Leukocytosis improving. Medications: Reviewed: Yes Medication Review Details: Generic Name Dose Route Start Last Admin Trade Name Freq PRN Reason Stop Dose Admin Levetiracetam 1,50 0 mg/ Sodium 115 mls @ 440 mls /hr 09/02/22 09:00 09/05/22 10:25 Chloride IV Infused Q12H OTIS Infusion Lacosamide 250 mg/ Sodium 75 mls @ 120 mls/ hr 09/02/22 09:00 09/05/22 10:25 Chloride IV Infused Q12H OTIS Infusion Piperacillin Sod/T azobactam 50 mls @ 12.5 mls /hr 09/02/22 09:00 09/05/22 11:26 Sod 3.375 gm/ So dium Chloride IV 12.5 mls/hr Q8H OTIS Administration Protocol Metronidazole 500 mg in 100 mls @ 100 mls/hr 09/02/22 14:30 09/05/22 08:15 Flagyl Iv IV Infused Q8H OTIS Infusion Protocol Phenytoin 250 mg/ Sodium 25 mls @ 104 mls/ hr 09/03/22 18:00 09/05/22 10:24 Chloride/ IV Misce llaneous IV Infused Supplies Q8H OTIS Infusion Potassium Chloride /Dextrose 20 meq in 1,000 m ls @ 75 mls/hr 09/04/22 08:00 09/05/22 11:26 Dextrose 5% + Hank l 20 Meq IV 75 mls/hr .[id number] OTIS Administration Lidocaine HCl 5 ml / Potassium 105 mls @ 25 mls/ hr 09/05/22 10:00 09/05/22 14:06 Chloride IV 09/05/22 14:11 Infused ONCE ONE Infusion Lanolin 1 applic 09/05/22 07:00 09/05/22 07:40 Lanolin Oint 7 G m TOPICAL 1 applic PRN PRN Administration DRYNESS Lorazepam 1 mg 09/02/22 13:22 09/04/22 21:20 Lorazepam 2 Mg/M l Inj 1 Ml IVP 1 mg Q8H PRN Administration ANXIETY Pantoprazole Sodiu m 40 mg 09/02/22 03:15 09/05/22 04:00 Pantoprazole 40 Mg Sdv IVP 40 mg Q24H OTIS Administration Vancomycin HCl 125 mg 09/02/22 17:00 09/05/22 12:21 Vancomycin 1,000 Mg Oral Tosha (Btl) XX 125 mg QID OTIS Administration Vitals/I&O/Wt Last Vital Signs Temp 98.0 F 09/11/22 11:00 Pulse 58 L 09/11/22 12:00 Resp 20 H 09/11/22 12:00 BP 151/84 09/11/22 12:00 Pulse Ox 99 09/11/22 12:00 O2 Del Method 09/11/22 07:00 O2 Flow Rate 3 09/08/22 18:30 09/10/22 09/11/22 09/11/22 22:59 06:59 14:59 Intake Total 801 / 1216 315.35 / 1531.35 1210.517 / 1210.517 Output Total 2300 / 2300 2300 / 4600 850 / 850 Balance -1499 / -1084 -1984.65 / -3068.65 360.517 / 360.517 Weight last 48 hrs Weight 129.092 kg Weight 129.1 kg Physical Exam Narrative: General: No acute distress, AO x2 HEENT: PERRLA, pupils bilaterally equal and reactive, pallors not present Chest: Normal vesicular breath sounds, no added sounds, equal good air entry bilaterally CVS: S1-S2 regular, no murmurs, no tachycardia, no gallops, no rubs Abdomen: Distended, softer compared to prior exams. Neuro: No focal deficits, at baseline mentation Urinary Catheter Management: Saenz: Cath Placed During This Visit: yes Reason for Continuing Indwelling Catheter: Accurate Measurement of Urinary Output in Critically Ill Patients Urinary Catheter Date of Insertion: 09/02/22 Urinary Catheter Time of Insertion: 12:00 Data 09/11/22 03:15 09/11/22 03:15 A&P Assessment and plan (1) Clostridium difficile enterocolitis: Patient admitted on September 01, 2022 with chief complaints of abdominal pain distention CT abdomen upon presentation showing markedly dilated sigmoid colon measuring up to 15 cm with an apparent transition point in the distal sigmoid colon. CT repeated on September 07, 2022 because of increased abdominal distention showed persistent colonic distention from mid transverse colon to rectosigmoid junction, measuring approximately 13.5 cm. Large amount of stool seen in the proximal colon. Overall clinical picture is compatible with that of fulminant C. difficile colitis with toxic megacolon. Completed colonoscopy on 09/08 with diffuse generalized colitis compatible with toxic megacolon. Patient has been on treatment with p.o. vancomycin 500 mg 4 times daily and IV Flagyl 500 mg 3 times a day since 09/02/22 Given no significant improvement with above medical therapy, added rectal vancomycin 500 mg every 6 hours as a retention enema on 09/08. Started on TPN after placing PICC line on 09/09. Start tube feeding diet today, NG tube output has reduced to around 200 patient states abdominal pain is better today Appreciate surgical recommendations. Currently on steroids per surgery recommendations given patches of ischemic colitis noted. Taper down to solumedrol 40mg iv q24h. continue protonix 40mg iv q12h for PUD ppx. May need to consider colectomy if bowel function fails to improve with medical interventions . (2) Toxic megacolon: As a result of C. difficile colitis; treatment as above (3) Hypokalemia: repleted (4) DVT (deep venous thrombosis): Deep venous thrombosis of the left upper extremity, occlusive, involving the distal left brachial veins. Superficial thrombus additionally seen in left basilic vein. This was a site of a previous IV line. Low suspicion for DIC Currently on Lovenox 1 mg/kg every 12 hours . Of note the DVT developed on heparin prophylaxis 5000 every 12 hours. (5) Developmental disorder: (6) Generalized epilepsy: No breakthrough seizures currently. Continue his home doses of phenytoin, Keppra and lacosamide Attestations Medical Necessity Statement*: awaiting return of bowel function, tube feeding and TPN Coding Level of Care Code Acute Code for [facility] Fwd Diagnoses Clostridium difficile enterocolitis A04.72 Toxic megacolon K59.31 Hypokalemia E87.6 DVT (deep venous thrombosis) I82.409 Developmental disorder F89 Generalized epilepsy G40.309
--- NOTE | 2022-09-11 15:29 | PM.PN ---
Subjective Subjective: Patient reports that his abdominal pain has improved and he would like to go home. Denies any nausea or emesis. Tube feeding to start this morning. He only had 200 cc out of the NG tube overnight Vitals/I&O/Wt Last Vital Signs Temp 98.0 F 09/11/22 11:00 Pulse 58 L 09/11/22 12:00 Resp 20 H 09/11/22 12:00 BP 151/84 09/11/22 12:00 Pulse Ox 99 09/11/22 12:00 O2 Del Method 09/11/22 07:00 O2 Flow Rate 3 09/08/22 18:30 09/11/22 09/11/22 09/11/22 06:59 14:59 22:59 Intake Total 315.35 / 1531.35 1210.517 / 1210.517 Output Total 2300 / 4600 850 / 850 Balance -1984.65 / -3068.65 360.517 / 360.517 Weight last 48 hrs Weight 284 lb 9.6 oz Weight 284 lb 9.868 oz Physical Exam Narrative: General: No acute distress, awake and alert Abdomen: Soft, nontender, distended but improved after decompression, no guarding rebound or masses Urinary Catheter Management: Saenz: Cath Placed During This Visit: yes Reason for Continuing Indwelling Catheter: Accurate Measurement of Urinary Output in Critically Ill Patients Urinary Catheter Date of Insertion: 09/02/22 Urinary Catheter Time of Insertion: 12:00 Data 09/11/22 03:15 09/11/22 03:15 A&P Assessment and plan (1) Clostridium difficile enterocolitis: (2) Pseudomembranous colitis: (3) Toxic megacolon: Plan Begin tube feeding and advance to goal as ordered If he does not continue to improve, he will need a subtotal colectomy with end ileostomy. TPN until tube feeds at goal Medical management per hospitalist Attestations Medical Necessity Statement*: Patient requires multiple more nights in the hospital for intensive care, IV antibiotics and diet advancement for toxic megacolon Coding Level of Care Code Acute Code for [facility] Fwd Diagnoses Clostridium difficile enterocolitis A04.72 Pseudomembranous colitis A04.72 Toxic megacolon K59.31
--- NOTE | 2022-09-11 19:00 | PC.NURSE ---
Restraints discontinued: Pt calm and cooperative. Day shift nurse reported pt did well without restraints. Restraints discontinued.
--- NOTE | 2022-09-11 19:00 | PC.NURSE ---
Tube feeding running @30ml/hr upon arrival to shift.
[2022-09-11] MEDS: lanolin oint 7 gm 1 APPLIC TOPICAL (22:29)
[2022-09-12] VITALS (23 sets, daily range): BP systolic 99–140; BP diastolic 58–85; PULSE 54–69; RESP 10–22; TEMP 36.5–37.1; O2SAT 89–97
[2022-09-12] MEDS: enoxaparin 120 mg/0.8 mL Syringe SUBCUT ×2 (01:58→12:44)
[2022-09-12] MEDS: PHENYTOIN 25 MG/ML 250 MG NG-TUBE ×3 (02:01→16:58)
[2022-09-12 04:22] LABS: Basophils # 0.1 10^3/uL (0.0-0.1); Basophils % 0.8 %; Eosinophils # 0.2 10^3/uL (0.0-0.8); Eosinophils % 1.3 %; Hematocrit 38.8 % (42.0-52.0); Hemoglobin 12.9 g/dL (11.7-16.6); Lymphocytes % 17.6 %; Mean Corpuscular HGB Conc 33.2 g/dL (30.0-36.0); Mean Corpuscular Hemoglobin 31.7 pg (28.0-34.0); Mean Corpuscular Volume 95.3 fl (80-94); Mean Platelet Volume 10.3 fL (7.4-10.4); Monocytes # 0.9 10^3/uL (0.2-0.9); Monocytes % 8.3 %; Neutrophils # 7.39 10^3/uL (1.8-7.7); Neutrophils % 64.9 %; Nucleated Red Blood Cells % 0 %; Platelet Count 247 10^3/cmm (130-400); Red Blood Count 4.07 10^6/uL (4.1-5.3); White Blood Count 11.4 10^3/uL (4.0-10.0)
[2022-09-12 04:45] LABS: Alanine Aminotransferase 78 U/L (0-41); Albumin Level 2.8 g/dL (3.5-5.2); Alkaline Phosphatase 75 U/L (40-130); Blood Urea Nitrogen 13 mg/dL (6-20); Calcium 8.4 mg/dL (8.5-10.5); Carbon Dioxide 34 mmol/L (22-29); Chloride 103 mmol/L (98-107); Globulin 2.6 g/dL (1.3-4.6); Glomerular Filtration Rate 317.4 mL/min (90-130); Glucose 113 mg/dL (65-115); Osmolality Calculated 293 mOsm/kg (285-295); Sodium 141 mmol/L (136-145); Total Bilirubin 0.6 mg/dL (0.15-1.2); Total Protein 5.4 g/dL (6.6-8.7)
[2022-09-12 04:48] LABS: Slide Review Slide Review Perform
[2022-09-12 04:50] LABS: Lactate (Lactic Acid level) 1.4 mmol/L (0.5-2.2)
[2022-09-12 05:05] LABS: Anion Gap 7.2 (5-19); Aspartate Amino Transferase 73 U/L (0-40); Potassium 3.2 mmol/L (3.5-5.1)
[2022-09-12] MEDS: metroNIDAZOLE IV 500 MG/100 ML PREMIX 100 MG IV ×3 (06:29→21:41)
[2022-09-12] MEDS: lacosamide 50 mg Tablet 250 MG NG-TUBE ×2 (09:20→16:58)
[2022-09-12] MEDS: pantoprazole 40 mg SDV IVP ×2 (09:20→20:25)
--- NOTE | 2022-09-12 09:30 | PC.NURSE ---
Tube feeding tubes and feeding changed. Currently running at 60ml/Hr to reach suggested goal of 83ml/hr.
--- NOTE | 2022-09-12 09:32 | PM.PN ---
Subjective Subjective: Patient reports that his abdominal pain has improved and he would like to go home. Denies any nausea or emesis. Tube feeding at 40 cc/h right now. Rectal output now more consistent with tube feeding Vitals/I&O/Wt Last Vital Signs Temp 98.6 F 09/12/22 04:00 Pulse 58 L 09/12/22 06:00 Resp 16 09/12/22 06:00 BP 99/65 09/12/22 06:00 Pulse Ox 89 L 09/12/22 06:00 O2 Del Method 09/11/22 07:00 O2 Flow Rate 3 09/08/22 18:30 09/11/22 09/12/22 09/12/22 22:59 06:59 14:59 Intake Total 1315.000 / 2625.517 972.04 / 3597.557 100 / 100 Output Total 350 / 1200 1100 / 2300 Balance 965.000 / 1425.517 -127.96 / 1297.557 100 / 100 Weight last 48 hrs Weight 284 lb 9.6 oz Physical Exam Narrative: General: No acute distress, awake and alert Abdomen: Soft, nontender, distended but improved after decompression, no guarding rebound or masses Urinary Catheter Management: Saenz: Cath Placed During This Visit: yes Reason for Continuing Indwelling Catheter: Accurate Measurement of Urinary Output in Critically Ill Patients Urinary Catheter Date of Insertion: 09/02/22 Urinary Catheter Time of Insertion: 12:00 Data 09/12/22 03:43 09/12/22 03:43 A&P Assessment and plan (1) Clostridium difficile enterocolitis: (2) Pseudomembranous colitis: (3) Toxic megacolon: Plan Dietary consult for tube feeding orders. Advance to goal as ordered If he does not continue to improve, he will need a subtotal colectomy with end ileostomy. He does seem to be improving however TPN until tube feeds at goal Medical management per hospitalist Attestations Medical Necessity Statement*: Patient requires another night in the hospital for intensive care, IV and oral antibiotics and steroids and diet advancement for toxic megacolon Coding Level of Care Code Acute Code for [facility] Fwd Diagnoses Clostridium difficile enterocolitis A04.72 Pseudomembranous colitis A04.72 Toxic megacolon K59.31
--- NOTE | 2022-09-12 15:22 | P.PN_ITS ---
Subjective Subjective: Patient reportedly had an okay night. He reports improvement in abdominal pain. He is tolerating tube feeds which are running at goal. He denies any significant nausea, emesis, fevers or chills. Medications: Reviewed: Yes Vitals/I&O/Wt Last Vital Signs Temp 98.7 F 09/12/22 08:00 Pulse 64 09/12/22 15:00 Resp 16 09/12/22 14:00 BP 124/80 09/12/22 14:00 Pulse Ox 97 09/12/22 14:00 O2 Del Method 09/12/22 14:00 O2 Flow Rate 3 09/08/22 18:30 09/12/22 09/12/22 09/12/22 06:59 14:59 22:59 Intake Total 972.04 / 3597.557 415 / 415 100 / 515 Output Total 1100 / 2300 Balance -127.96 / 1297.557 415 / 415 100 / 515 Weight last 48 hrs Weight 129.092 kg Physical Exam Narrative: General: Patient is awake. Appears fatigued. Head: Normocephalic. Atraumatic. EOM intact. Neck: No JVD. Cardiovascular: RRR. No gallops. No murmurs. No peripheral edema. Lungs: Clear to auscultation, no use of accessory muscles, no crackles or wheezes. Skin: No jaundice. No rashes. Abdomen: Normal bowel sounds, abdomen soft and nontender. Genito Urinary: Saenz catheter Rectal: Rectal tube with watery light brown output. Extremities: No cyanosis or clubbing. Musculoskeletal: 5/5 strength, normal range of motion, no swollen or erythema tous joints. Neurological: Moves all 4 extremities. No myoclonus. Urinary Catheter Management: Saenz: Cath Placed During This Visit: yes Reason for Continuing Indwelling Catheter: Accurate Measurement of Urinary Output in Critically Ill Patients Urinary Catheter Date of Insertion: 09/02/22 Urinary Catheter Time of Insertion: 12:00 Data 09/12/22 03:43 09/12/22 03:43 A&P Assessment and plan (1) Clostridium difficile enterocolitis: Presentation consistent with fulminant C. difficile colitis with toxic megacolon Status post colonoscopy on 09/08 consistent with diffuse generalized colitis compatible with toxic megacolon Continue oral vancomycin 500 mg 4 times daily (09/02-present) Continue IV Flagyl 500 mg 3 times a day (09/02-present) Received rectal vancomycin retention enema on 09/08 Continue rectal vancomycin Now off TPN Tolerating tube feeds at goal Serial abdominal exams Tapering Solu-Medrol Continue PPI (2) Toxic megacolon: A complication of C. difficile colitis Management as noted above (3) Hypokalemia: Status post repletion (4) DVT (deep venous thrombosis): Obstructive DVT in left upper extremity in distal left brachial veins, developed on subq heparin Superficial thrombus in left basilic vein Continue therapeutic Lovenox (5) Developmental disorder: Mentation appears to be at baseline (6) Generalized epilepsy: Continue home phenytoin, Keppra and lacosamide Plan DVT prophylaxis: Lovenox CODE STATUS: Full code Attestations Medical Necessity Statement*: Patient requires ongoing hospitalization for serial abdominal exams, electrolyte monitoring, enteral nutrition via feeding tube, and supportive care. Coding Level of Care Code Acute Code for [facility] Fwd Diagnoses Clostridium difficile enterocolitis A04.72 Toxic megacolon K59.31 Hypokalemia E87.6 DVT (deep venous thrombosis) I82.409 Developmental disorder F89 Generalized epilepsy G40.309
--- NOTE | 2022-09-12 15:39 | PC.NURSE ---
Tube feeding currently running at dietitian recommendations of 83ml/hr.
--- NOTE | 2022-09-12 16:04 | PC.NURSE ---
Notified Dr Solomon of current patient condition including;patient output from rectal tube,and of tube feeding being at goal rate of 83ml/hr.
--- NOTE | 2022-09-12 18:17 | PC.NURSE ---
Patient had an uneventful shift. Worked with PT and got up to chair for approximately one hour. Frequent comfort, turning, and oral care provided to patient. Patient output monitored and Dr. Solomon notified of intake and output throughout this shift. Patient continues to deny pain this shift. Family at bedside through most of shift and notified of days plan of care.
[2022-09-13] VITALS (13 sets, daily range): BP systolic 121–140; BP diastolic 67–81; PULSE 58–82; RESP 14–18; TEMP 36–36.7; O2SAT 93–100
[2022-09-13] MEDS: enoxaparin 120 mg/0.8 mL Syringe SUBCUT ×2 (00:03→13:45)
[2022-09-13] MEDS: PHENYTOIN 25 MG/ML 250 MG NG-TUBE ×3 (01:32→17:56)
[2022-09-13 03:10] LABS: Basophils # 0.1 10^3/uL (0.0-0.1); Basophils % 0.5 %; Eosinophils # 0.1 10^3/uL (0.0-0.8); Eosinophils % 0.7 %; Hematocrit 37.6 % (42.0-52.0); Hemoglobin 12.3 g/dL (11.7-16.6); Lymphocytes # 3.4 10^3/uL (0.8-4.8); Lymphocytes % 22.7 %; Mean Corpuscular HGB Conc 32.7 g/dL (30.0-36.0); Mean Corpuscular Hemoglobin 32.1 pg (28.0-34.0); Mean Corpuscular Volume 98.2 fl (80-94); Mean Platelet Volume 11.5 fL (7.4-10.4); Monocytes # 1.3 10^3/uL (0.2-0.9); Monocytes % 8.5 %; Neutrophils # 9.62 10^3/uL (1.8-7.7); Neutrophils % 63.6 %; Nucleated Red Blood Cells % 0 %; Platelet Count 198 10^3/cmm (130-400); Red Blood Count 3.83 10^6/uL (4.1-5.3); Red Cell Distribution Width 14.4 % (12.1-15.1); White Blood Count 15.1 10^3/uL (4.0-10.0)
[2022-09-13 03:33] LABS: Alanine Aminotransferase 66 U/L (0-41); Albumin Level 2.9 g/dL (3.5-5.2); Alkaline Phosphatase 86 U/L (40-130); Carbon Dioxide 28 mmol/L (22-29); Globulin 2.4 g/dL (1.3-4.6); Glomerular Filtration Rate 317.4 mL/min (90-130); Glucose 128 mg/dL (65-115); Magnesium 2.4 mg/dL (1.7-2.3); Phosphorus 2.6 mg/dL (2.5-4.5); Total Bilirubin 0.5 mg/dL (0.15-1.2); Total Protein 5.3 g/dL (6.6-8.7)
[2022-09-13 03:45] LABS: Aspartate Amino Transferase 56 U/L (0-40); Potassium 3.9 mmol/L (3.5-5.1)
[2022-09-13 04:01] LABS: Anion Gap 12.9 (5-19); Blood Urea Nitrogen 13 mg/dL (6-20); Calcium 7.8 mg/dL (8.5-10.5); Chloride 101 mmol/L (98-107); Osmolality Calculated 288 mOsm/kg (285-295); Sodium 138 mmol/L (136-145)
--- NOTE | 2022-09-13 04:01 | XRR_ITS ---
PROCEDURE INFORMATION: Exam: XR Abdomen Exam date and time: 09/13/2022 4:07 AM Age: 51 years old Clinical indication: Device placement; Gi device; Nasogastric tube; Patient HX: Ng tube placement; Additional info: Ngt pulled out, confirm placement TECHNIQUE: Imaging protocol: Radiologic exam of the abdomen. Views: Frontal supine view of the abdomen. 1 View. COMPARISON: CT abdomen pelvis wo con [id number] 09/07/2022 11:09 AM FINDINGS: Tubes, catheters and devices: Enteric tube in stomach. Gastrointestinal tract: Dilated colon redemonstrated. Bones/joints: Unremarkable. XR/XR KUB portable [id number] IMPRESSION: Enteric tube in the stomach.
[2022-09-13] MEDS: metroNIDAZOLE IV 500 MG/100 ML PREMIX 100 MG IV ×3 (05:33→22:23)
--- NOTE | 2022-09-13 07:17 | PC.NURSE ---
bedside report received.
--- NOTE | 2022-09-13 08:37 | PC.SOCIAL ---
IMM Update pg 2 of IMM updated and reviewed w/ patients mother over the phone. Copy left @ bedside. Copy in chart dated and initialed.
[2022-09-13] MEDS: lacosamide 50 mg Tablet 250 MG NG-TUBE ×2 (09:54→17:54)
[2022-09-13] MEDS: pantoprazole 40 mg SDV IVP ×2 (09:57→20:58)
--- NOTE | 2022-09-13 10:25 | PM.PN ---
Subjective Subjective: Patient has been doing well since beginning of IV steroid therapy. He denies any abdominal pain nausea or emesis. He has rectal tube output. Vitals/I&O/Wt Last Vital Signs Temp 98.1 F 09/13/22 08:00 Pulse 72 09/13/22 08:00 Resp 14 09/13/22 08:00 BP 140/81 09/13/22 08:00 Pulse Ox 100 09/13/22 08:00 O2 Del Method 09/13/22 08:00 O2 Flow Rate 3 09/08/22 18:30 09/12/22 09/13/22 09/13/22 22:59 06:59 14:59 Intake Total 1365 / 1780 962 / 2742 Output Total 200 / 200 1000 / 1200 Balance 1165 / 1580 -38 / 1542 Weight last 48 hrs Weight 294 lb 5.074 oz Physical Exam Narrative: General: No acute distress, awake and alert Abdomen: Soft, nontender, distended but improved after decompression, no guarding rebound or masses Urinary Catheter Management: Saenz: Cath Placed During This Visit: yes Reason for Continuing Indwelling Catheter: Accurate Measurement of Urinary Output in Critically Ill Patients Urinary Catheter Date of Insertion: 09/02/22 Urinary Catheter Time of Insertion: 12:00 Data 09/13/22 02:11 09/13/22 02:11 A&P Assessment and plan (1) Clostridium difficile enterocolitis: (2) Pseudomembranous colitis: (3) Toxic megacolon: Plan Patient is tolerating tube feeding at goal TPN off He is having no nausea or emesis and positive rectal tube output. Will likely change to p.o. diet tomorrow Leukocytosis likely due to IV steroid therapy We will continue to follow. If he worsens he will need a subtotal colectomy and end ileostomy Medical management per hospitalist Attestations Medical Necessity Statement*: Patient requires additional nights in the hospital for intensive care and diet advancement for toxic megacolon Coding Level of Care Code Acute Code for Chg Fwd Diagnoses Clostridium difficile enterocolitis A04.72 Pseudomembranous colitis A04.72 Toxic megacolon K59.31
--- NOTE | 2022-09-13 11:40 | PM.PN ---
Subjective Subjective: Patient pulled out NG tube overnight. It was replaced. Patient denies any complaints. Denies nausea, emesis, fevers, chills, or abdominal pain. Medications: Reviewed: Yes Vitals/I&O/Wt Last Vital Signs Temp 98.1 F 09/13/22 08:00 Pulse 62 09/13/22 10:00 Resp 18 09/13/22 10:00 BP 125/70 09/13/22 10:00 Pulse Ox 95 09/13/22 10:00 O2 Del Method 09/13/22 10:00 O2 Flow Rate 3 09/08/22 18:30 09/12/22 09/13/22 09/13/22 22:59 06:59 14:59 Intake Total 1365 / 1780 962 / 2742 315 / 315 Output Total 200 / 200 1000 / 1200 Balance 1165 / 1580 -38 / 1542 315 / 315 Weight last 48 hrs Weight 133.5 kg Physical Exam Narrative: General: Patient is awake. Alert. Head: Normocephalic. Atraumatic. EOM intact. NG tube. Neck: No JVD. Cardiovascular: RRR. No gallops. No murmurs. No peripheral edema. Lungs: Clear to auscultation, no use of accessory muscles, no crackles or wheezes. Skin: No jaundice. No rashes. Abdomen: Normal bowel sounds, abdomen soft and nontender. Genito Urinary: Saenz catheter Rectal: Rectal tube with watery light brown output. Extremities: No cyanosis or clubbing. Musculoskeletal: 5/5 strength, normal range of motion, no swollen or erythematous joints. Neurological: Moves all 4 extremities. No myoclonus. Urinary Catheter Management: Saenz: Cath Placed During This Visit: yes Reason for Continuing Indwelling Catheter: Accurate Measurement of Urinary Output in Critically Ill Patients Urinary Catheter Date of Insertion: 09/02/22 Urinary Catheter Time of Insertion: 12:00 Data 09/13/22 02:11 09/13/22 02:11 A&P Assessment and plan (1) Clostridium difficile enterocolitis: Fulminant C. difficile colitis with toxic megacolon Status post colonoscopy on 09/08 consistent with diffuse generalized colitis compatible with toxic megacolon Continue oral vancomycin 500 mg 4 times daily (09/02-present) Continue IV Flagyl 500 mg 3 times a day (09/02-present) Received rectal vancomycin retention enema on 09/08 Continue rectal vancomycin (09/10-present) Tolerating tube feeds at goal Anticipate diet tomorrow per GS Serial abdominal exams Continue Solu-Medrol Continue PPI (2) Toxic megacolon: A complication of C. difficile colitis Management as noted above (3) Hypokalemia: Status post repletion K 3.9 Continue to monitor (4) DVT (deep venous thrombosis): Obstructive DVT in left upper extremity in distal left brachial veins, developed on subq heparin Superficial thrombus in left basilic vein Continue therapeutic Lovenox (5) Developmental disorder: Mentation appears to be at baseline (6) Generalized epilepsy: Continue home phenytoin, Keppra and lacosamide (7) Leukocytosis: Suspect steroid-induced Plan DVT prophylaxis: Lovenox CODE STATUS: Full code Attestations Medical Necessity Statement*: Patient requires ongoing hospitalization for serial abdominal exams, electrolyte monitoring, enteral nutrition via feeding tube, and supportive care. Coding Level of Care Code Acute Code for [facility] Fwd Diagnoses Clostridium difficile enterocolitis A04.72 Toxic megacolon K59.31 Hypokalemia E87.6 DVT (deep venous thrombosis) I82.409 Developmental disorder F89 Generalized epilepsy G40.309 Leukocytosis D72.829
[2022-09-14] VITALS (21 sets, daily range): BP systolic 119–150; BP diastolic 62–98; PULSE 56–79; RESP 12–28; TEMP 36.2–36.8; O2SAT 90–100
[2022-09-14] MEDS: enoxaparin 120 mg/0.8 mL Syringe SUBCUT ×2 (00:33→13:24)
[2022-09-14] MEDS: PHENYTOIN 25 MG/ML 250 MG NG-TUBE ×3 (01:42→17:00)
--- NOTE | 2022-09-14 05:09 | XRR_ITS ---
PROCEDURE INFORMATION: Exam: XR Abdomen Exam date and time: 09/14/2022 5:28 AM Age: 51 years old Clinical indication: Device placement; Gi device; Nasogastric tube; Additional info: Ng tube placement verification TECHNIQUE: Imaging protocol: Radiologic exam of the abdomen. Views: Frontal supine view of the abdomen. 1 View. COMPARISON: CR (ABDOMEN, ) 09/13/2022 4:07 AM FINDINGS: Tubes, catheters and devices: Nasogastric tube in the stomach. Gastrointestinal tract: Dilated colon. Bones/joints: Unremarkable. XR/XR KUB portable 11711 IMPRESSION: Nasogastric tube in the proximal stomach.
[2022-09-14 05:25] LABS: Basophils # 0.1 10^3/uL (0.0-0.1); Basophils % 0.5 %; Eosinophils # 0.1 10^3/uL (0.0-0.8); Eosinophils % 0.5 %; Hematocrit 40.4 % (42.0-52.0); Hemoglobin 13.4 g/dL (11.7-16.6); Lymphocytes # 1.6 10^3/uL (0.8-4.8); Lymphocytes % 11.9 %; Mean Corpuscular HGB Conc 33.2 g/dL (30.0-36.0); Mean Corpuscular Hemoglobin 31.6 pg (28.0-34.0); Mean Corpuscular Volume 95.3 fl (80-94); Mean Platelet Volume 11.2 fL (7.4-10.4); Monocytes # 0.8 10^3/uL (0.2-0.9); Monocytes % 6.3 %; Neutrophils # 9.67 10^3/uL (1.8-7.7); Neutrophils % 72.9 %; Nucleated Red Blood Cells % 0 %; Platelet Count 202 10^3/cmm (130-400); Red Blood Count 4.24 10^6/uL (4.1-5.3); Red Cell Distribution Width 14.3 % (12.1-15.1); White Blood Count 13.2 10^3/uL (4.0-10.0)
[2022-09-14 05:35] LABS: Alanine Aminotransferase 60 U/L (0-41); Albumin Level 3.3 g/dL (3.5-5.2); Alkaline Phosphatase 90 U/L (40-130); Blood Urea Nitrogen 12 mg/dL (6-20); Calcium 8.9 mg/dL (8.5-10.5); Carbon Dioxide 32 mmol/L (22-29); Chloride 100 mmol/L (98-107); Globulin 2.8 g/dL (1.3-4.6); Glomerular Filtration Rate 317.4 mL/min (90-130); Glucose 138 mg/dL (65-115); Magnesium 2.5 mg/dL (1.7-2.3); Osmolality Calculated 286 mOsm/kg (285-295); Phosphorus 2.8 mg/dL (2.5-4.5); Sodium 137 mmol/L (136-145); Total Bilirubin 0.6 mg/dL (0.15-1.2); Total Protein 6.1 g/dL (6.6-8.7)
--- NOTE | 2022-09-14 05:36 | PC.NURSE ---
NG tube pulled out per patient, replaced NG tube to right nare, KUB done to verify placement.
[2022-09-14 05:39] LABS: Anion Gap 8.6 (5-19); Aspartate Amino Transferase 44 U/L (0-40); Potassium 3.6 mmol/L (3.5-5.1)
[2022-09-14 05:52] LABS: Slide Review Slide Review Perform
[2022-09-14] MEDS: metroNIDAZOLE IV 500 MG/100 ML PREMIX 100 MG IV ×3 (06:09→22:32)
--- NOTE | 2022-09-14 08:50 | P.PN_ITS ---
Subjective Subjective: NG tube in place, worked well with physical therapy, complained of some dizziness. Medications: Reviewed: Yes Medication Review Details: Generic Name Dose Route Start Last Admin Trade Name Freq PRN Reason Stop Dose Admin Enoxaparin Sodium 120 mg 09/09/22 13:00 09/14/22 00:33 Enoxaparin 120 M g/0.8 Ml Syringe SUBCUT 120 mg Q12H OTIS Administration Levetiracetam 1,50 0 mg/ Sodium 115 mls @ 440 mls /hr 09/02/22 09:00 09/13/22 21:16 Chloride IV Infused Q12H OTIS Infusion Metronidazole 500 mg in 100 mls @ 100 mls/hr 09/02/22 14:30 09/14/22 06:09 Flagyl Iv IV 100 mls/hr Q8H OTIS Administration Protocol Vancomycin HCl 500 mg/ Sodium 100 mls @ 0 mls/h r 09/10/22 09:00 09/13/22 21:59 Chloride 100 ml/ N/A MO Infused QID OTIS Infusion Protocol As Directed Lacosamide 250 mg 09/07/22 09:50 09/13/22 17:54 Lacosamide 50 Mg Tablet NG-TUBE 250 mg BID OTIS Administration Lanolin 1 applic 09/05/22 07:00 09/11/22 22:29 Lanolin Oint 7 G m TOPICAL 1 applic PRN PRN Administration DRYNESS Methylprednisolone Sodium Succinate 40 mg 09/10/22 14:00 09/14/22 01:42 Methylprednisolo ne Sod Succ 40 Mg/ Ml Inj IVP 40 mg Q12H OTIS Administration Pantoprazole Sodiu m 40 mg 09/10/22 09:00 09/13/22 20:58 Pantoprazole 40 Mg Sdv IVP 40 mg Q12H OTIS Administration Phenytoin 250 mg 09/08/22 02:00 09/14/22 01:42 Phenytoin Oral S intermediate 25 Mg/Ml (Ml) NG-TUBE 250 mg Q8H OTIS Administration Vancomycin HCl 500 mg 09/06/22 17:00 09/13/22 20:58 Vancomycin 1,000 Mg Oral Tosha (Btl) PO 500 mg QID OTIS Administration Vitals/I&O/Wt Last Vital Signs Temp 97.4 F L 09/14/22 04:00 Pulse 60 09/14/22 06:00 Resp 20 H 09/14/22 06:00 BP 149/84 09/14/22 06:00 Pulse Ox 100 09/14/22 06:00 O2 Del Method 09/14/22 06:00 O2 Flow Rate 3 09/08/22 18:30 09/13/22 09/14/22 09/14/22 22:59 06:59 14:59 Intake Total 1338 / 1753 1159 / 2912 Output Total 1950 / 3200 Balance 1338 / 503 -791 / -288 Weight last 48 hrs Weight 131.224 kg Weight 133.5 kg Physical Exam Resp: COMMON NORMALS: clear to auscultation bilaterally EFFORT & INSPECTION: Yes symmetric chest movement AUSCULTATION: clear to auscultation bilaterally Cardio: COMMON NORMALS: regular rate, regular rhythm, S1 normal heart sound present, S2 normal heart sound present, No gallops present (Cardio), No murmurs present (Cardio), No rub (Cardio) and Peripheral pulses 2+ throughout RATE: regular rate RHYTHM: regular rhythm HEART SOUNDS: S1 normal heart sound present and S2 normal heart sound present PERIPHERAL PULSES: Peripheral pulses 2+ throughout GI: OTHER: Distended abdomen, hypoactive bowel sounds, nontender Extremity: COMMON NORMALS: no clubbing, cyanosis or edema and no pedal edema Urinary Catheter Management: Saenz: Cath Placed During This Visit: yes Reason for Continuing Indwelling Catheter: Accurate Measurement of Urinary Output in Critically Ill Patients Urinary Catheter Date of Insertion: 09/02/22 Urinary Catheter Time of Insertion: 12:00 Data 09/14/22 05:00 09/14/22 05:00 A&P Assessment and plan (1) Clostridium difficile enterocolitis: Patient admitted on September 01, 2022 with chief complaints of abdominal pain distention CT abdomen upon presentation showing markedly dilated sigmoid colon measuring up to 15 cm with an apparent transition point in the distal sigmoid colon. CT repeated on September 07, 2022 because of increased abdominal distention showed persistent colonic distention from mid transverse colon to rectosigmoid junction, measuring approximately 13.5 cm. Large amount of stool seen in the proximal colon. Overall clinical picture is compatible with that of fulminant C. difficile colitis with toxic megacolon. Completed colonoscopy on 09/08 with diffuse generalized colitis compatible with toxic megacolon. Patient has been on treatment with p.o. vancomycin 500 mg 4 times daily and IV Flagyl 500 mg 3 times a day since 09/02/22 Given no significant improvement with above medical therapy, added rectal vancomycin 500 mg every 6 hours as a retention enema on 09/08. Started on TPN after placing PICC line on 09/09. Currently on tube feeding. Appreciate surgical recommendations. Currently on steroids per surgery recommendations given patches of ischemic colitis noted. Taper down to solumedrol 40mg iv q24h. continue protonix 40mg iv q12h for PUD ppx. May need to consider colectomy if bowel function fails to improve with medical interventions. (2) Toxic megacolon: As a result of C. difficile colitis; treatment as above (3) Hypokalemia: repleted (4) DVT (deep venous thrombosis): Deep venous thrombosis of the left upper extremity, occlusive, involving the distal left brachial veins. Superficial thrombus additionally seen in left basilic vein. This was a site of a previous IV line. Low suspicion for DIC Currently on Lovenox 1 mg/kg every 12 hours . Of note the DVT developed on heparin prophylaxis 5000 every 12 hours. (5) Developmental disorder: (6) Generalized epilepsy: No breakthrough seizures currently. Continue his home doses of phenytoin, Keppra and lacosamide Attestations Medical Necessity Statement*: In hospital for management of C. difficile colitis Coding Level of Care Code Acute Code for Chg Fwd Exam Expanded Problem Focused Diagnoses Clostridium difficile enterocolitis A04.72 Toxic megacolon K59.31 Hypokalemia E87.6 DVT (deep venous thrombosis) I82.409 Developmental disorder F89 Generalized epilepsy G40.309
[2022-09-14] MEDS: lacosamide 50 mg Tablet 250 MG NG-TUBE ×2 (09:16→17:00)
[2022-09-14] MEDS: pantoprazole 40 mg SDV IVP ×2 (09:17→21:06)
--- NOTE | 2022-09-14 20:21 | PM.PN ---
Subjective Subjective: Patient has been doing well since beginning of IV steroid therapy. He denies any abdominal pain nausea or emesis. He has rectal tube output but it is not very significant. Vitals/I&O/Wt Last Vital Signs Temp 98 F 09/14/22 13:00 Pulse 79 09/14/22 19:00 Resp 18 09/14/22 18:00 BP 125/79 09/14/22 19:00 Pulse Ox 93 09/14/22 19:00 O2 Del Method 09/14/22 18:00 O2 Flow Rate 3 09/08/22 18:30 09/14/22 09/14/22 09/14/22 06:59 14:59 22:59 Intake Total 1159 / 2912 823 / 823 852 / 1675 Output Total 1950 / 3200 375 / 375 Balance -791 / -288 448 / 448 852 / 1300 Weight last 48 hrs Weight 289 lb 4.8 oz Weight 294 lb 5.074 oz Physical Exam Narrative: General: No acute distress, awake and alert Abdomen: Soft, nontender, distended, no guarding rebound or masses Urinary Catheter Management: Saenz: Cath Placed During This Visit: yes Reason for Continuing Indwelling Catheter: Accurate Measurement of Urinary Output in Critically Ill Patients Urinary Catheter Date of Insertion: 09/02/22 Urinary Catheter Time of Insertion: 12:00 Data 09/14/22 05:00 09/14/22 05:00 A&P Assessment and plan (1) Clostridium difficile enterocolitis: (2) Pseudomembranous colitis: (3) Toxic megacolon: Plan Patient is tolerating tube feeding at goal He is having no nausea or emesis and positive rectal tube output. Leukocytosis likely due to IV steroid therapy Turn off tube feeding at midnight. If he does not begin having significant output from his rectum tomorrow he may need a subtotal colectomy and end ileostomy Medical management per hospitalist Attestations Medical Necessity Statement*: Patient requires multiple more nights in the hospital for IV oral and rectal antibiotics along with IV steroids for toxic megacolon Coding Level of Care Code Acute Code for [facility] Fwd Diagnoses Clostridium difficile enterocolitis A04.72 Pseudomembranous colitis A04.72 Toxic megacolon K59.31
--- NOTE | 2022-09-14 22:47 | PC.NURSE ---
2114 Report called to CSU nurse, Verna, YUKI. Pt belongings gathered and packaged, pt prepped for transfer. 2129 Pt moved from ICU to CSU, bedside report completed with YUKI Gillespie. Pt moved to CSU bed, placed on monitor, SENIOR SCHEDULER and RN at bedside.
[2022-09-15] VITALS (70 sets, daily range): BP systolic 102–141; BP diastolic 54–102; PULSE 57–97; RESP 9–24; TEMP 36.7–36.9; O2SAT 90–100
[2022-09-15] MEDS: PHENYTOIN 25 MG/ML 250 MG NG-TUBE ×3 (02:35→21:14)
[2022-09-15] MEDS: enoxaparin 120 mg/0.8 mL Syringe SUBCUT (02:36)
[2022-09-15 06:03] LABS: Basophils # 0.1 10^3/uL (0.0-0.1); Basophils % 0.4 %; Eosinophils % 0.2 %; Hemoglobin 12.9 g/dL (11.7-16.6); Lymphocytes # 1.4 10^3/uL (0.8-4.8); Lymphocytes % 6.6 %; Mean Corpuscular HGB Conc 33.1 g/dL (30.0-36.0); Mean Corpuscular Hemoglobin 31.9 pg (28.0-34.0); Mean Corpuscular Volume 96.5 fl (80-94); Mean Platelet Volume 11.4 fL (7.4-10.4); Monocytes # 1.8 10^3/uL (0.2-0.9); Monocytes % 8.5 %; Neutrophils % 81.2 %; Nucleated Red Blood Cells % 0 %; Platelet Count 144 10^3/cmm (130-400); Red Blood Count 4.04 10^6/uL (4.1-5.3); Red Cell Distribution Width 14.7 % (12.1-15.1); White Blood Count 21.8 10^3/uL (4.0-10.0)
[2022-09-15] MEDS: metroNIDAZOLE IV 500 MG/100 ML PREMIX 100 MG IV ×3 (06:29→23:40)
[2022-09-15 06:41] LABS: Alanine Aminotransferase 49 U/L (0-41); Albumin Level 3.4 g/dL (3.5-5.2); Alkaline Phosphatase 85 U/L (40-130); Blood Urea Nitrogen 15 mg/dL (6-20); Calcium 8.3 mg/dL (8.5-10.5); Carbon Dioxide 30 mmol/L (22-29); Chloride 101 mmol/L (98-107); Globulin 2.4 g/dL (1.3-4.6); Glomerular Filtration Rate 317.4 mL/min (90-130); Glucose 137 mg/dL (65-115); Osmolality Calculated 295 mOsm/kg (285-295); Sodium 141 mmol/L (136-145); Total Bilirubin 0.5 mg/dL (0.15-1.2); Total Protein 5.8 g/dL (6.6-8.7)
[2022-09-15 06:42] LABS: Anion Gap 13.2 (5-19); Aspartate Amino Transferase 32 U/L (0-40); Potassium 3.2 mmol/L (3.5-5.1)
[2022-09-15] MEDS: pantoprazole 40 mg SDV IVP ×2 (08:20→20:51)
--- NOTE | 2022-09-15 10:19 | P.PN_ITS ---
Subjective Subjective: NG tube in place, awaiting exploratory laparotomy. Medications: Reviewed: Yes Medication Review Details: Generic Name Dose Route Start Last Admin Trade Name Freq PRN Reason Stop Dose Admin Enoxaparin Sodium 120 mg 09/09/22 13:00 09/15/22 02:36 Enoxaparin 120 M g/0.8 Ml Syringe SUBCUT 120 mg Q12H OTIS Administration Levetiracetam 1,50 0 mg/ Sodium 115 mls @ 440 mls /hr 09/02/22 09:00 09/15/22 08:36 Chloride IV Infused Q12H OTIS Infusion Metronidazole 500 mg in 100 mls @ 100 mls/hr 09/02/22 14:30 09/15/22 08:36 Flagyl Iv IV Infused Q8H OTIS Infusion Protocol Vancomycin HCl 500 mg/ Sodium 100 mls @ 0 mls/h r 09/10/22 09:00 09/14/22 22:41 Chloride 100 ml/ N/A RI Infused QID OTIS Infusion Protocol As Directed Lacosamide 250 mg 09/07/22 09:50 09/14/22 17:00 Lacosamide 50 Mg Tablet NG-TUBE 250 mg BID OTIS Administration Lanolin 1 applic 09/05/22 07:00 09/11/22 22:29 Lanolin Oint 7 G m TOPICAL 1 applic PRN PRN Administration DRYNESS Methylprednisolone Sodium Succinate 40 mg 09/10/22 14:00 09/15/22 02:35 Methylprednisolo ne Sod Succ 40 Mg/ Ml Inj IVP 40 mg Q12H OTIS Administration Pantoprazole Sodiu m 40 mg 09/10/22 09:00 09/15/22 08:20 Pantoprazole 40 Mg Sdv IVP 40 mg Q12H OTIS Administration Phenytoin 250 mg 09/08/22 02:00 09/15/22 02:35 Phenytoin Oral S senior living 25 Mg/Ml (Ml) NG-TUBE 250 mg Q8H OTIS Administration Vancomycin HCl 500 mg 09/06/22 17:00 09/14/22 21:06 Vancomycin 1,000 Mg Oral Tosha (Btl) PO 500 mg QID OTIS Administration Vitals/I&O/Wt Last Vital Signs Temp 98.4 F 09/15/22 10:00 Pulse 65 09/15/22 10:00 Resp 12 09/15/22 10:00 BP 122/61 09/15/22 10:00 Pulse Ox 96 09/15/22 10:00 O2 Del Method 09/15/22 10:00 O2 Flow Rate 3 09/08/22 18:30 09/14/22 09/15/22 09/15/22 22:59 06:59 14:59 Intake Total 1904 / 2727 620 / 3347 215 / 215 Output Total 680 / 1055 Balance 1904 / 2352 -60 / 2292 215 / 215 Weight last 48 hrs Weight 131.224 kg Physical Exam Resp: COMMON NORMALS: clear to auscultation bilaterally EFFORT & INSPECTION: Yes symmetric chest movement AUSCULTATION: clear to auscultation bilaterally Cardio: COMMON NORMALS: regular rate, regular rhythm, S1 normal heart sound present, S2 normal heart sound present, No gallops present (Cardio), No murmurs present (Cardio), No rub (Cardio) and Peripheral pulses 2+ throughout RATE: regular rate RHYTHM: regular rhythm HEART SOUNDS: S1 normal heart sound present and S2 normal heart sound present PERIPHERAL PULSES: Peripheral pulses 2+ throughout GI: OTHER: Distended abdomen, hypoactive bowel sounds, nontender Extremity: COMMON NORMALS: no clubbing, cyanosis or edema and no pedal edema Urinary Catheter Management: Saenz: Cath Placed During This Visit: yes Reason for Continuing Indwelling Catheter: Accurate Measurement of Urinary Output in Critically Ill Patients Urinary Catheter Date of Insertion: 09/02/22 Urinary Catheter Time of Insertion: 12:00 Data 09/15/22 05:00 09/15/22 05:00 A&P Assessment and plan (1) Clostridium difficile enterocolitis: Patient admitted on September 01, 2022 with chief complaints of abdominal pain distention CT abdomen upon presentation showing markedly dilated sigmoid colon measuring up to 15 cm with an apparent transition point in the distal sigmoid colon. CT repeated on September 07, 2022 because of increased abdominal distention showed persistent colonic distention from mid transverse colon to rectosigmoid junction, measuring approximately 13.5 cm. Large amount of stool seen in the proximal colon. Overall clinical picture is compatible with that of fulminant C. difficile colitis with toxic megacolon. Completed colonoscopy on 09/08 with diffuse generalized colitis compatible with toxic megacolon. Patient has been on treatment with p.o. vancomycin 500 mg 4 times daily and IV Flagyl 500 mg 3 times a day since 09/02/22 Given no significant improvement with above medical therapy, added rectal vanco mycin 500 mg every 6 hours as a retention enema on 09/08. Started on TPN after placing PICC line on 09/09. Currently on tube feeding. Appreciate surgical recommendations. Currently on steroids per surgery recommendations given patches of ischemic colitis noted. Taper down to solumedrol 40mg iv q24h. continue protonix 40mg iv q12h for PUD ppx. May need to consider colectomy if bowel function fails to improve with medical interventions. (2) Toxic megacolon: As a result of C. difficile colitis; treatment as above (3) Hypokalemia: repleted (4) DVT (deep venous thrombosis): Deep venous thrombosis of the left upper extremity, occlusive, involving the distal left brachial veins. Superficial thrombus additionally seen in left basilic vein. This was a site of a previous IV line. Low suspicion for DIC Currently on Lovenox 1 mg/kg every 12 hours . Of note the DVT developed on heparin prophylaxis 5000 every 12 hours. (5) Developmental disorder: (6) Generalized epilepsy: No breakthrough seizures currently. Continue his home doses of phenytoin, Keppra and lacosamide Attestations Medical Necessity Statement*: Patient is still in hospital management toxic megacolon Coding Level of Care Code Acute Code for Chg Fwd Exam Expanded Problem Focused Diagnoses Clostridium difficile enterocolitis A04.72 Toxic megacolon K59.31 Hypokalemia E87.6 DVT (deep venous thrombosis) I82.409 Developmental disorder F89 Generalized epilepsy G40.309
[2022-09-15] MEDS: lacosamide 50 mg Tablet 250 MG NG-TUBE ×2 (10:50→20:51)
[2022-09-15] MEDS: lidocaine 1% 5 ML in potassium chloride premix 100 ML 26.25 ML IV (11:18)
--- NOTE | 2022-09-15 13:12 | P.ANESASSM_ITS ---
Pre-Anesthetic Assessment Height/Weight: Height 1.85 m Weight 131.224 kg Temp Pulse Resp BP Pulse Ox O2 Del Method O2 Flow Rate 98.4 F 66 18 122/61 95 3 09/15/22 10:00 09/15/22 12:00 09/15/22 12:00 09/15/22 12:00 09/15/22 12:00 09/15/22 10:00 09/08/22 18:30 Operation Date: 09/08/22 16:30 Proposed Procedures p Colonoscopy(Not Applicable) - Harman Solomon DO Operation Date: 09/15/22 15:00 Proposed Procedures p Exploratory Laparotomy(Not Applicable) - Harman Solomon DO s Subtotal Colectomy and Ileostomy formation(Not Applicable) - Harman Solomon DO Familial anesthetic complications: none Was Beta Maria L taken within 24 hours: N/A Was Clonidine taken within 24 hours: N/A Social No alcohol and No tobacco Exam alert, oriented x 3, clear to auscultation bilaterally and regular rate & rhythm Airway Submandibular: within normal limits Cervical ROM: within normal limits Mallampati: Class I Dentition: chipped (very poor dentition) Comments: Comments: NG tube CV/HEM Anemia, Deep Vein Thrombosis and Peripheral Vascular Disease GI C.diff Metabolic Hyperlipidemia and Morbid Obesity hypokalemia Neuropsych Seizure Mental retardation Anesthetic Plan ASA status: 3 Anesthesia: General Medications/Allergies Home Medications Medication Instructions Recorded Confirmed Last Taken Type Compression hose #1 ea 09/21/20 09/02/22 Unknown Rx Compression hose 07/13/21 09/02/22 Unknown History Diabetic Shoes with 3 pairs of #1 ea 03/23/22 09/02/22 Unknown Rx inserts lacosamide 200 mg tablet (Vimpat) 200 mg PO BID 1 month #60 tabs 06/09/22 09/02/22 Unknown Rx phenytoin 50 mg chewable tablet See Rx Instructions .Route 06/19/22 09/02/22 Unknown Rx .COMPLEX #270 tabs levetiracetam 1,000 mg tablet 1,500 mg PO BID 08/20/22 09/02/22 Unknown History trazodone 100 mg tablet 100 mg PO BEDTIME 08/20/22 09/02/22 Unknown History lacosamide 50 mg tablet 50 mg PO BID #180 tabs 08/21/22 09/02/22 Unknown Rx Allergies Allergy/AdvReac Type Severity Reaction Status Date / Time No Known Allergies Allergy Verified 09/01/22 19:51 Current Medications Generic Name Dose Route Start Last Admin Trade Name Freq PRN Reason Stop Dose Admin Enoxaparin Sodium 120 mg 09/09/22 13:00 09/15/22 02:36 Enoxaparin 120 Mg/0.8 Ml Syringe SUBCUT 120 mg Q12H OTIS Administration Levetiracetam 1,500 mg/ Sodium 115 mls @ 440 mls/hr 09/02/22 09:00 09/15/22 12:15 Chloride IV 440 mls/hr Q12H OTIS Administration Metronidazole 500 mg in 100 mls @ 100 mls/hr 09/02/22 14:30 09/15/22 08:36 Flagyl Iv IV Infused Q8H OTIS Infusion Protocol Vancomycin HCl 500 mg/ Sodium 100 mls @ 0 mls/hr 09/10/22 09:00 09/15/22 10:51 Chloride 100 ml/ N/A GA 100 mls/hr QID OTIS Administration Protocol As Directed Lidocaine HCl 5 ml/ Potassium 105 mls @ 26.25 mls/hr 09/15/22 10:20 09/15/22 11:18 Chloride IV 09/15/22 14:19 26.25 mls/hr ONCE ONE Administration Lacosamide 250 mg 09/07/22 09:50 09/15/22 10:50 Lacosamide 50 Mg Tablet NG-TUBE 250 mg BID OTIS Administration Lanolin 1 applic 09/05/22 07:00 09/11/22 22:29 Lanolin Oint 7 Gm TOPICAL 1 applic PRN PRN Administration DRYNESS Pantoprazole Sodium 40 mg 09/10/22 09:00 09/15/22 08:20 Pantoprazole 40 Mg Sdv IVP 40 mg Q12H OTIS Administration Phenytoin 250 mg 09/08/22 02:00 09/15/22 12:15 Phenytoin Oral Susp 25 Mg/Ml (Ml) NG-TUBE 250 mg Q8H OTIS Administration Vancomycin HCl 500 mg 09/06/22 17:00 09/15/22 10:49 Vancomycin 1,000 Mg Oral Tosha (Btl) PO 500 mg QID OTIS Administration PFSH Anesthesia Medical History Cellulitis of oral soft tissues Endotracheally intubated Essential hypertension Frontal lobe epilepsy Generalized epilepsy Hypertension Intellectual disability Leukocytosis Morbid obesity Nonhealing nonsurgical wound Peripheral vascular disease Seizure Status epilepticus Venous stasis dermatitis Surgical History S/P vein stripping Family History Father Cancer Lung cancer Mother CAD (coronary artery disease) Other Diabetes Heart disease Hypertension Denies family history of Stroke Social History Smoking and tobacco status: never smoked Second hand smoke exposure: No Smoking risk assessment/counseling performed?: No Alcohol intake: never Desire information about alcohol rehabilitation?: No Counseling given: No Desire information about substance/drug rehabilitation?: No Counseling given: No Caregiver/support person: Yes Lives independently: No Household members: family Marital status: Single service: No Current occupational status: disabled History of recent travel: No Current gender identity: Male Data Anesthesia 09/15/22 05:00 09/15/22 05:00 Short CBC 09/14/22 09/15/22 Range/Units 05:00 05:00 WBC 13.2 H 21.8 H (4.0-10.0) 10^3/uL Hgb 13.4 12.9 (11.7-16.6) g/dL Hct 40.4 L 39.0 L (42.0-52.0) % MCV 95.3 H 96.5 H (80-94) fl Plt Count 202 144 (130-400) 10^3/cmm Neut % (Auto) 72.9 81.2 % Neut # (Auto) 9.67 H 17.70 H (1.8-7.7) 10^3/uL BMP 09/14/22 09/15/22 05:00 05:00 Sodium 137 141 Potassium 3.6 3.2 L Chloride 100 101 Carbon Dioxide 32 H 30 H BUN 12 15 Creatinine 0.3 L 0.3 L Glucose 138 H 137 H Calcium 8.9 8.3 L Liver Function 09/14/22 09/15/22 Range/Units 05:00 05:00 Total Bilirubin 0.6 0.5 (0.15-1.2) mg/dL AST 44 H 32 (0-40) U/L ALT 60 H 49 H (0-41) U/L Alkaline Phosphatase 90 85 (40-130) U/L Albumin 3.3 L 3.4 L (3.5-5.2) g/dL Cardiac Studies: Echocardiogram 08/20/22
--- NOTE | 2022-09-15 14:15 | PC.NURSE ---
Patient left floor at 1413 for surgery.
[2022-09-15] MEDS: sodium chloride 0.9% 1,000 ML 30 ML IV (14:50)
--- NOTE | 2022-09-15 14:57 | PM.PN ---
Subjective Subjective: Still no significant rectal output. To OR today. Vitals/I&O/Wt Last Vital Signs Temp 98.2 F 09/15/22 14:23 Pulse 73 09/15/22 14:23 Resp 18 09/15/22 14:23 BP 127/70 09/15/22 14:23 Pulse Ox 95 09/15/22 14:23 O2 Del Method 09/15/22 14:23 O2 Flow Rate 3 09/08/22 18:30 09/14/22 09/15/22 09/15/22 22:59 06:59 14:59 Intake Total 1904 / 2727 620 / 3347 580 / 580 Output Total 680 / 1055 800 / 800 Balance 1904 / 2352 -60 / 2292 -220 / -220 Weight last 48 hrs Weight 289 lb 4.8 oz Physical Exam Narrative: General: No acute distress, awake and alert Abdomen: Soft, nontender, distended, no guarding rebound or masses Urinary Catheter Management: Saenz: Cath Placed During This Visit: yes Reason for Continuing Indwelling Catheter: Accurate Measurement of Urinary Output in Critically Ill Patients Urinary Catheter Date of Insertion: 09/02/22 Urinary Catheter Time of Insertion: 12:00 Data 09/15/22 05:00 09/15/22 05:00 A&P Assessment and plan (1) Clostridium difficile enterocolitis: (2) Pseudomembranous colitis: (3) Toxic megacolon: Plan To OR for subtotal colectomy and end ileostomy The risks and benefits of the procedure, including but not limited to, bleeding, infection, scar, numbness, pain, damage to surrounding structures, malfunction/ischemia of the ostomy, need for repeat surgery, or explained to the patient and his family. They understand the risks and wished to proceed. Attestations Medical Necessity Statement*: Patient requires multiple more nights in the hospital following today's subtotal colectomy and end ileostomy Coding Level of Care Code Acute Code for [facility] Fwd Diagnoses Clostridium difficile enterocolitis A04.72 Pseudomembranous colitis A04.72 Toxic megacolon K59.31
[2022-09-15] MEDS: ceFOXitin 2,000 MG in sodium chloride 0.9% (plus) 50 ML 100 MG IV (15:16)
--- NOTE | 2022-09-15 19:02 | PM.OP ---
Operative Report Date of procedure: September 15, 2022 Pre-op diagnosis: Toxic megacolon Post-op diagnosis: same Procedure done: Exploratory laparotomy, subtotal colectomy, end ileostomy formation Implants: 19 Fijian Vance drain into the pelvis Specimens removed/disposition: Total: Surgeon: Dr. Harman Solomon DO Anesthesia: General Estimated blood loss (mL): 150 Complications: None apparent Brief History: This very pleasant 51-year-old gentleman who was found to have toxic megacolon. Despite maximal medical therapy the colon was not salvageable. Exploratory laparotomy, subtotal colectomy and end ileostomy formation was indicated. The risks and benefits were explained and documented Procedure: Patient was wheeled in operative room placed on the OR table in the supine position. The abdomen was inspected prepped and draped in usual sterile fashion. A timeout was performed. All present were in agreement. General endotracheal intubation was achieved by the department of anesthesia. A midline laparotomy incision was made with a 10 blade scalpel. Dissection was carried down to the fascia using Bovie cautery. The fascia was opened using Bovie cautery. Peritoneum was grasped with hemostats x2 and opened sharply with Metzenbaum scissors. There was an incredibly substantial amount of dilated colon. A window was made in the mesentery at the terminal ileum and a JOSE LUIS stapler blue 100 mm load was used to transect the terminal ileum. The right white line of Toldt was taken down bluntly and sharply, as was the left white line of Toldt. The Enseal was then used to very carefully transect the gastrocolic ligament and omentum to free the colon. The mesentery was then tracked dissected with the Enseal. The right colic middle colic and left colic arteries were taken with the Enseal. The sigmoid was transected at the rectum using 4 loads of JOSE LUIS stapler blue 100 mm loads. The colon was then passed off. A 19 Fijian Vance drain was then placed into the pelvis coming out of the left lower quadrant. An appropriate location for the end ileostomy was chosen in the right lower quadrant and Bovie cautery was used to take out a [place] of skin and subcutaneous tissue. A cruciate incision was made in the anterior rectus sheath. The rectus muscle was split and Bovie cautery was used to cut the posterior rectus fascia. The defect was enlarged to 2 finger breaths. Terminal ileum was brought up through the incision taking care not to twist the small bowel. The midline laparotomy incision was then closed with #1 PDS in a running fashion x2. Skin was closed with micky. Drain was sewn in place with 3-0 nylon. The end ileostomy was then matured in a typical [place] fashion with 3-0 Vicryl sutures. Ostomy appliance was placed. Sterile dressing was applied. Patient tolerated procedure well.
[2022-09-15] MEDS: HYDROmorphone 1 mg/mL INJ 1 mL IVP (21:13)
[2022-09-16] VITALS (65 sets, daily range): BP systolic 65–151; BP diastolic 47–101; PULSE 75–90; RESP 10–25; TEMP 36.9–37.5; O2SAT 88–96; BMI 35.9
[2022-09-16] MEDS: PHENYTOIN 25 MG/ML 250 MG NG-TUBE ×3 (01:47→17:50)
[2022-09-16] MEDS: enoxaparin 120 mg/0.8 mL Syringe SUBCUT ×2 (02:00→12:47)
[2022-09-16 03:27] LABS: Basophils # 0.1 10^3/uL (0.0-0.1); Basophils % 0.3 %; Hematocrit 36.4 % (42.0-52.0); Hemoglobin 11.9 g/dL (11.7-16.6); Lymphocytes # 1.5 10^3/uL (0.8-4.8); Lymphocytes % 3.1 %; Mean Corpuscular HGB Conc 32.7 g/dL (30.0-36.0); Mean Corpuscular Hemoglobin 32.2 pg (28.0-34.0); Mean Corpuscular Volume 98.4 fl (80-94); Mean Platelet Volume 10.2 fL (7.4-10.4); Monocytes # 2.7 10^3/uL (0.2-0.9); Monocytes % 5.5 %; Neutrophils % 88.6 %; Nucleated Red Blood Cells % 0 %; Platelet Count 266 10^3/cmm (130-400); Red Cell Distribution Width 15.3 % (12.1-15.1)
[2022-09-16 03:41] LABS: White Blood Count 48.7 10^3/uL (4.0-10.0)
[2022-09-16 04:01] LABS: Alanine Aminotransferase 35 U/L (0-41); Albumin Level 2.9 g/dL (3.5-5.2); Alkaline Phosphatase 73 U/L (40-130); Anion Gap 13.5 (5-19); Aspartate Amino Transferase 26 U/L (0-40); Blood Urea Nitrogen 16 mg/dL (6-20); Calcium 7.8 mg/dL (8.5-10.5); Carbon Dioxide 26 mmol/L (22-29); Chloride 106 mmol/L (98-107); Globulin 2.2 g/dL (1.3-4.6); Glucose 171 mg/dL (65-115); Osmolality Calculated 299 mOsm/kg (285-295); Potassium 3.5 mmol/L (3.5-5.1); Sodium 142 mmol/L (136-145); Total Bilirubin 1.3 mg/dL (0.15-1.2); Total Protein 5.1 g/dL (6.6-8.7)
--- NOTE | 2022-09-16 07:46 | ANE.PACU2 ---
Inpatient post-anesthesia follow up: Airway intact: Yes Vital signs: Temperature 98.4 F Pulse Rate 88 Respiratory Rate 17 Blood Pressure 136/80 Pulse Oximetry 91 Oxygen Delivery Me thod [Rate & Room Air Delivery Changed T o] Oxygen Delivery Me thod Room Air Oxygen Flow Rate 6 Fraction of Inspir ed Oxygen Hydration adequate: Yes Nausea and vomiting: No Pain level: 3 Mental status: Baseline
--- NOTE | 2022-09-16 07:59 | XRR_ITS ---
PROCEDURE INFORMATION: Exam: XR Chest Exam date and time: 09/16/2022 8:21 AM Age: 51 years old Clinical indication: Device placement; Ng tube; Additional info: Ng placement TECHNIQUE: Imaging protocol: Radiologic exam of the chest. Views: 1 view. COMPARISON: CR XR chest 1V portable [id number] 09/09/2022 3:36 PM FINDINGS: Tubes, catheters and devices: Feeding tube proximal port is seen within the distal esophagus. Left sided PICC is in satisfactory position, with distal tip at the level of the SVC/RA junction. Lungs: Minimal bibasilar atelectasis. No consolidation. Pleural spaces: Unremarkable. No pleural effusion. No pneumothorax. Heart/Mediastinum: Stable cardiomediastinal silhouette. Bones/joints: Unremarkable. XR/XR chest 1V portable [id number] IMPRESSION: Feeding tube proximal port is within the distal esophagus, advancement is recommended.
[2022-09-16] MEDS: piperacillin-tazobactam 3.375 GM in sodium chloride 0.9% (plus) 50 ML IV ×2 (09:05→17:49)
[2022-09-16] MEDS: pantoprazole 40 mg SDV IVP ×2 (09:05→20:57)
[2022-09-16] MEDS: metroNIDAZOLE IV 500 MG/100 ML PREMIX 100 MG IV (09:06)
--- NOTE | 2022-09-16 09:38 | PC.NURSE ---
This AM NG tube was on bed beside patient. Dr. Antony notified and NG tube replaced. NG was advanced per xray.
--- NOTE | 2022-09-16 10:44 | PC.CHAP ---
Pastoral Care Encounter/Spiritual Assessment Type of Contact [] Declined zigzag elastic attacher visit [] Patient/Family/Request visit [] Outpatient visit [] Follow-up visit [] Physician referral [] Code/Alert [x] Routine visit [] Staff referral [] Actively dying [] Patient sleeping [] Family support [] [] Out of room [] Palliative care [] [] Receiving care in room [] Pre-surgical visit [] Trauma [] Long length of stay [x] ICU visit [] Other: Relational/Emotional Strength [] Patient feels connected with others/family/visitors/staff [] Distress [] Loneliness/isolation [] Abandonment Spirituality of Patient [] Person of [place]cee [] Attends Congregational of their [place]cee [] Believes in Prayer [] Reads Bible or Religion materials [] There are Spiritual issues to be addressed Home Care Coordinator Interventions [x] Prayer [] Active listening [] Non-anxious presence [] Spiritual/emotional support [] Crisis/trauma care [] Spiritual counseling [] Bereavement support [] Provided bereavement packet [] Provided Bible/devotional materials [] Provided toy/stuffed animal, coloring book to patient or family member [] Provided Communion [] Anointing/[place] [] Salvation [] Completed spiritual assessment [] Other: Impact on Illness or Injury [] Angry [] Fearful [] Anxious [] Often cries [] Exhaustion [] Unable to work [] Unable to attend mu-ism [] Unable to walk/stand [] Unable to read [] Unable to drive [] Unable to eat/drink [] Unable to sleep [] Unable to be with family [] Patient intubated [] Other: Summary Time spent with patient
[2022-09-16] MEDS: lanolin oint 7 gm 1 APPLIC TOPICAL (12:47)
--- NOTE | 2022-09-16 15:14 | P.PN_ITS ---
Subjective Subjective: Patient pulled NG tube yesterday, which was replaced. We will complete extended tapered course of p.o. vancomycin. For total 1 month duration. Will begin 125 mg p.o. twice daily vancomycin for next 7 days, and then 125 mg p.o. daily for another 7 days. Medications: Reviewed: Yes Medication Review Details: Generic Name Dose Route Start Last Admin Trade Name Freq PRN Reason Stop Dose Admin Enoxaparin Sodium 120 mg 09/09/22 13:00 09/16/22 12:47 Enoxaparin 120 M g/0.8 Ml Syringe SUBCUT 120 mg Q12H OTIS Administration Hydromorphone HCl 1 mg 09/15/22 19:56 09/15/22 21:13 Hydromorphone 1 Mg/Ml Inj 1 Ml IVP 1 mg Q2H PRN Administration PAIN Levetiracetam 1,50 0 mg/ Sodium 115 mls @ 440 mls /hr 09/02/22 09:00 09/16/22 13:04 Chloride IV Infused Q12H OTIS Infusion Metronidazole 500 mg in 100 mls @ 100 mls/hr 09/02/22 14:30 09/16/22 09:06 Flagyl Iv IV 100 mls/hr Q8H OTIS Administration Protocol Piperacillin Sod/T azobactam 50 mls @ 12.5 mls /hr 09/16/22 08:45 09/16/22 09:05 Sod 3.375 gm/ So dium Chloride IV 12.5 mls/hr Q8H OTIS Administration Protocol Lanolin 1 applic 09/05/22 07:00 09/16/22 12:47 Lanolin Oint 7 G m TOPICAL 1 applic PRN PRN Administration DRYNESS Pantoprazole Sodiu m 40 mg 09/10/22 09:00 09/16/22 09:05 Pantoprazole 40 Mg Sdv IVP 40 mg Q12H OTIS Administration Phenytoin 250 mg 09/08/22 02:00 09/16/22 10:43 Phenytoin Oral S correction 25 Mg/Ml (Ml) NG-TUBE 250 mg Q8H OTIS Administration Vitals/I&O/Wt Last Vital Signs Temp 99.0 F 09/16/22 12:00 Pulse 88 09/16/22 14:30 Resp 22 H 09/16/22 14:30 BP 132/84 09/16/22 14:30 Pulse Ox 92 09/16/22 11:30 O2 Del Method 09/15/22 19:45 O2 Flow Rate 6 09/15/22 19:00 09/16/22 09/16/22 09/16/22 06:59 14:59 22:59 Intake Total 215 / 1207 115 / 115 Output Total 830 / 1950 1270 / 1270 Balance -615 / -743 -1155 / -1155 Weight last 48 hrs Weight 123.5 kg Physical Exam Resp: COMMON NORMALS: clear to auscultation bilaterally EFFORT & INSPECTION: Yes symmetric chest movement AUSCULTATION: clear to auscultation bilaterally Cardio: COMMON NORMALS: regular rate, regular rhythm, S1 normal heart sound present, S2 normal heart sound present, No gallops present (Cardio), No murmurs present (Cardio), No rub (Cardio) and Peripheral pulses 2+ throughout RATE: regular rate RHYTHM: regular rhythm HEART SOUNDS: S1 normal heart sound present and S2 normal heart sound present PERIPHERAL PULSES: Peripheral pulses 2+ throughout GI: OTHER: Distended abdomen, hypoactive bowel sounds, nontender Extremity: COMMON NORMALS: no clubbing, cyanosis or edema and no pedal edema Urinary Catheter Management: Saenz: Cath Placed During This Visit: yes Reason for Continuing Indwelling Catheter: Accurate Measurement of Urinary Outpu t in Critically Ill Patients Urinary Catheter Date of Insertion: 09/02/22 Urinary Catheter Time of Insertion: 12:00 Data 09/16/22 02:50 09/16/22 02:50 A&P Assessment and plan (1) Clostridium difficile enterocolitis: Patient admitted on September 01, 2022 with chief complaints of abdominal pain distention CT abdomen upon presentation showing markedly dilated sigmoid colon measuring up to 15 cm with an apparent transition point in the distal sigmoid colon. CT repeated on September 07, 2022 because of increased abdominal distention showed persistent colonic distention from mid transverse colon to rectosigmoid junction, measuring approximately 13.5 cm. Large amount of stool seen in the proximal colon. Overall clinical picture is compatible with that of fulminant C. difficile colitis with toxic megacolon. Completed colonoscopy on 09/08 with diffuse generalized colitis compatible with toxic megacolon. Patient has been on treatment with p.o. vancomycin 500 mg 4 times daily and IV Flagyl 500 mg 3 times a day since 09/02/22. Given no significant improvement with above medical therapy, added rectal v ancomycin 500 mg every 6 hours as a retention enema on 09/08. We will complete extended tapered course of p.o. vancomycin. For total 1 month duration. 125 mg p.o. twice daily vancomycin for next 7 days, and then 125 mg p.o. daily for another 7 days. Started on TPN after placing PICC line on 09/09. Patient was on steroids for possible ischemic colitis. Which has been tapered off. Given no significant improvement in overall bowel distention. Patient underwent: S/p: Exploratory laparotomy, subtotal colectomy and end ileostomy. (2) Toxic megacolon: As a result of C. difficile colitis; treatment as above (3) Hypokalemia: repleted (4) DVT (deep venous thrombosis): Deep venous thrombosis of the left upper extremity, occlusive, involving the distal left brachial veins. Superficial thrombus additionally seen in left basilic vein. This was a site of a previous IV line. Low suspicion for DIC Currently on Lovenox 1 mg/kg every 12 hours . Of note the DVT developed on heparin prophylaxis 5000 every 12 hours. (5) Developmental disorder: (6) Generalized epilepsy: No breakthrough seizures currently. Continue his home doses of phenytoin, Keppra and lacosamide (7) Leukocytosis: Significant rise in white blood cell count to 48,000, after surgical intervention, likely reactive. Will empirically start him on Zosyn Peripheral blood smear review. I will restrict myself from sending lymphoma leukemia panel. (8) Pseudomembranous colitis: Attestations Medical Necessity Statement*: Patient is to be in hospital for management of toxic megacolon. Coding Level of Care Code Acute Code for [facility] Fwd Diagnoses Clostridium difficile enterocolitis A04.72 Toxic megacolon K59.31 Hypokalemia E87.6 DVT (deep venous thrombosis) I82.409 Developmental disorder F89 Generalized epilepsy G40.309 Leukocytosis D72.829 Pseudomembranous colitis A04.72
--- NOTE | 2022-09-16 17:25 | P.PN_ITS ---
Subjective Subjective: Patient denies any nausea or vomiting and says that his abdominal pain is appropriately controlled. No output in the ileostomy yet Vitals/I&O/Wt Last Vital Signs Temp 99.0 F 09/16/22 12:00 Pulse 88 09/16/22 14:30 Resp 22 H 09/16/22 14:30 BP 132/84 09/16/22 14:30 Pulse Ox 92 09/16/22 11:30 O2 Del Method 09/15/22 19:45 O2 Flow Rate 6 09/15/22 19:00 09/16/22 09/16/22 09/16/22 06:59 14:59 22:59 Intake Total 215 / 1207 115 / 115 Output Total 830 / 1950 1270 / 1270 Balance -615 / -743 -1155 / -1155 Weight last 48 hrs Weight 272 lb 4.334 oz Physical Exam Narrative: General: No acute distress Abdomen: Soft, nondistended, appropriately tender to palpation, no guarding catrachito ound or masses Ostomy pink patent not producing yet Dressings clean dry and intact Urinary Catheter Management: Saenz: Cath Placed During This Visit: yes Reason for Continuing Indwelling Catheter: Accurate Measurement of Urinary Output in Critically Ill Patients Urinary Catheter Date of Insertion: 09/02/22 Urinary Catheter Time of Insertion: 12:00 Data 09/16/22 02:50 09/16/22 02:50 A&P Assessment and plan (1) Toxic megacolon: Plan Postoperative day #1 status post subtotal colectomy and end ileostomy formation Attestations Medical Necessity Statement*: Patient requires multiple more nights in the hospital for intensive care and return of bowel function following subtotal colectomy Coding Level of Care Code Acute Code for [facility] Fwd Diagnoses Toxic megacolon K59.31
[2022-09-16] MEDS: HYDROmorphone 1 mg/mL INJ 1 mL IVP ×2 (19:45→22:20)
[2022-09-16] MEDS: ondansetron 2 mg/ML SDV 2 mL 4 MG IVP (22:19)
[2022-09-17] VITALS (47 sets, daily range): BP systolic 105–145; BP diastolic 46–92; PULSE 67–83; RESP 13–23; TEMP 36.8–37; O2SAT 88–99
[2022-09-17] MEDS: piperacillin-tazobactam 3.375 GM in sodium chloride 0.9% (plus) 50 ML IV ×3 (01:33→17:28)
[2022-09-17] MEDS: PHENYTOIN 25 MG/ML 250 MG NG-TUBE ×3 (01:33→17:28)
[2022-09-17] MEDS: enoxaparin 120 mg/0.8 mL Syringe SUBCUT ×2 (01:35→12:21)
[2022-09-17] MEDS: acetaminophen 325 mg Tablet 650 MG PO (02:14)
[2022-09-17 04:04] LABS: Basophils # 0.1 10^3/uL (0.0-0.1); Basophils % 0.3 %; Eosinophils # 0.1 10^3/uL (0.0-0.8); Eosinophils % 0.5 %; Hematocrit 30.5 % (42.0-52.0); Hemoglobin 9.8 g/dL (11.7-16.6); Lymphocytes # 2.1 10^3/uL (0.8-4.8); Lymphocytes % 9.4 %; Mean Corpuscular HGB Conc 32.1 g/dL (30.0-36.0); Mean Corpuscular Hemoglobin 32.2 pg (28.0-34.0); Mean Corpuscular Volume 100.3 fl (80-94); Mean Platelet Volume 11.1 fL (7.4-10.4); Monocytes # 2.4 10^3/uL (0.2-0.9); Monocytes % 10.7 %; Neutrophils # 17.08 10^3/uL (1.8-7.7); Neutrophils % 77.3 %; Nucleated Red Blood Cells % 0 %; Platelet Count 173 10^3/cmm (130-400); Red Blood Count 3.04 10^6/uL (4.1-5.3); Red Cell Distribution Width 15.7 % (12.1-15.1); White Blood Count 22.1 10^3/uL (4.0-10.0)
[2022-09-17 04:36] LABS: Alanine Aminotransferase 22 U/L (0-41); Albumin Level 2.8 g/dL (3.5-5.2); Alkaline Phosphatase 86 U/L (40-130); Blood Urea Nitrogen 12 mg/dL (6-20); Calcium 7.8 mg/dL (8.5-10.5); Carbon Dioxide 28 mmol/L (22-29); Chloride 107 mmol/L (98-107); Globulin 2.4 g/dL (1.3-4.6); Glomerular Filtration Rate 227.7 mL/min (90-130); Glucose 124 mg/dL (65-115); Osmolality Calculated 299 mOsm/kg (285-295); Sodium 144 mmol/L (136-145); Total Bilirubin 1.9 mg/dL (0.15-1.2); Total Protein 5.2 g/dL (6.6-8.7)
[2022-09-17 04:51] LABS: Anion Gap 13.2 (5-19)
[2022-09-17 04:52] LABS: Aspartate Amino Transferase 23 U/L (0-40); Potassium 4.2 mmol/L (3.5-5.1)
[2022-09-17] MEDS: pantoprazole 40 mg SDV IVP ×2 (08:45→21:05)
[2022-09-17] MEDS: HYDROmorphone 1 mg/mL INJ 1 mL IVP ×3 (12:21→23:50)
--- NOTE | 2022-09-17 12:40 | PC.SOCIAL ---
IMM Update pg 2 of IMM updated with patients mom on voicemail. Left message with call back number. Copy in chart dated, and intialed and copy placed @ bedside.
--- NOTE | 2022-09-17 14:22 | PM.PN ---
Subjective Subjective: Patient denies any nausea or vomiting, rectal tube output is decreasing, PRETTY drain output is decreasing, white blood cell count is trending down. Patient had denied any significant abdominal pain nausea. Medications: Reviewed: Yes Medication Review Details: Generic Name Dose Route Start Last Admin Trade Name Freq PRN Reason Stop Dose Admin Acetaminophen 650 mg 09/17/22 01:57 09/17/22 02:14 Acetaminophen 32 5 Mg Tablet PO 650 mg Q6H PRN Administration MILD PAIN Enoxaparin Sodium 120 mg 09/09/22 13:00 09/17/22 12:21 Enoxaparin 120 M g/0.8 Ml Syringe SUBCUT 120 mg Q12H OTIS Administration Hydromorphone HCl 1 mg 09/15/22 19:56 09/17/22 12:21 Hydromorphone 1 Mg/Ml Inj 1 Ml IVP 1 mg Q2H PRN Administration PAIN Levetiracetam 1,50 0 mg/ Sodium 115 mls @ 440 mls /hr 09/02/22 09:00 09/17/22 12:43 Chloride IV 440 mls/hr Q12H OTIS Administration Piperacillin Sod/T azobactam 50 mls @ 12.5 mls /hr 09/16/22 08:45 09/17/22 08:45 Sod 3.375 gm/ So dium Chloride IV 12.5 mls/hr Q8H OTIS Administration Protocol Lanolin 1 applic 09/05/22 07:00 09/16/22 12:47 Lanolin Oint 7 G m TOPICAL 1 applic PRN PRN Administration DRYNESS Ondansetron HCl 4 mg 09/02/22 03:02 09/16/22 22:19 Ondansetron 2 Mg /Ml Sdv 2 Ml IVP 4 mg Q8H PRN Administration vomiting, or N/V if npo Pantoprazole Sodiu m 40 mg 09/10/22 09:00 09/17/22 08:45 Pantoprazole 40 Mg Sdv IVP 40 mg Q12H OTIS Administration Phenytoin 250 mg 09/08/22 02:00 09/17/22 11:00 Phenytoin Oral S retirement 25 Mg/Ml (Ml) NG-TUBE 250 mg Q8H OTIS Administration Vancomycin HCl 500 mg 09/16/22 17:00 09/17/22 12:21 Vancomycin 1,000 Mg Oral Tosha (Btl) PO 500 mg QID OTIS Administration Vitals/I&O/Wt Last Vital Signs Temp 98.2 F 09/17/22 07:30 Pulse 77 09/17/22 13:30 Resp 21 H 09/17/22 13:30 BP 132/73 09/17/22 13:30 Pulse Ox 95 09/17/22 13:30 O2 Del Method 09/17/22 06:30 O2 Flow Rate 6 09/15/22 19:00 09/16/22 09/17/22 09/17/22 22:59 06:59 14:59 Intake Total 150 / 315 165 / 480 Output Total 290 / 1560 1430 / 2990 Balance -140 / -1245 -1265 / -2510 Weight last 48 hrs Weight 117.254 kg Weight 123.5 kg Physical Exam Resp: COMMON NORMALS: clear to auscultation bilaterally EFFORT & INSPECTION: Yes symmetric chest movement AUSCULTATION: clear to auscultation bilaterally Cardio: COMMON NORMALS: regular rate, regular rhythm, S1 normal heart sound present, S2 normal heart sound present, No gallops present (Cardio), No murmurs present (Cardio), No rub (Cardio) and Peripheral pulses 2+ throughout RATE: regular rate RHYTHM: regular rhythm HEART SOUNDS: S1 normal heart sound present and S2 normal heart sound present PERIPHERAL PULSES: Peripheral pulses 2+ throughout GI: OTHER: Soft nondistended, ostomy in place, PRETTY drain in place, mild tenderness, no guarding no rigidity. Extremity: COMMON NORMALS: no clubbing, cyanosis or edema and no pedal edema Urinary Catheter Management: Saenz: Cath Placed During This Visit: yes Reason for Continuing Indwelling Catheter: Accurate Measurement of Urinary Output in Critically Ill Patients Urinary Catheter Date of Insertion: 09/02/22 Urinary Catheter Time of Insertion: 12:00 Data 09/17/22 02:09 09/17/22 02:09 A&P Assessment and plan (1) Clostridium difficile enterocolitis: Patient admitted on September 01, 2022 with chief complaints of abdominal pain distention CT abdomen upon presentation showing markedly dilated sigmoid colon measuring up to 15 cm with an apparent transition point in the distal sigmoid colon. CT repeated on September 07, 2022 because of increased abdominal distention showed persistent colonic distention from mid transverse colon to rectosigmoid junction, measuring approximately 13.5 cm. Large amount of stool seen in the proximal colon. Overall clinical picture is compatible with that of fulminant C. difficile colitis with toxic megacolon. Completed colonoscopy on 09/08 with diffuse generalized colitis compatible with toxic megacolon. Patient has been on treatment with p.o. vancomycin 500 mg 4 times daily and IV Flagyl 500 mg 3 times a day since 09/02/22. Given no significant improvement with above medical therapy, added rectal vancomycin 500 mg every 6 hours as a retention enema on 09/08. We will complete extended tapered course of p.o. vancomycin. For total 1 month duration. 125 mg p.o. twice daily vancomycin for next 7 days, and then 125 mg p.o. daily for another 7 days. Started on TPN after placing PICC line on 09/09. Patient was on steroids for possible ischemic colitis. Which has been tapered off. Given no significant improvement in overall bowel distention. Patient underwent: S/p: Exploratory laparotomy, subtotal colectomy and end ileostomy. (2) Toxic megacolon: As a result of C. difficile colitis; treatment as above (3) Hypokalemia: repleted (4) DVT (deep venous thrombosis): Deep venous thrombosis of the left upper extremity, occlusive, involving the distal left brachial veins. Superficial thrombus additionally seen in left basilic vein. This was a site of a previous IV line. Low suspicion for DIC Currently on Lovenox 1 mg/kg every 12 hours . Of note the DVT developed on heparin prophylaxis 5000 every 12 hours. (5) Developmental disorder: (6) Generalized epilepsy: No breakthrough seizures currently. Continue his home doses of phenytoin, Keppra and lacosamide (7) Leukocytosis: Significant rise in white blood cell count to 48,000, after surgical intervention, likely reactive. Will empirically start him on Zosyn Peripheral blood smear review. I will restrict myself from sending lymphoma leukemia panel. (8) Pseudomembranous colitis: Attestations Medical Necessity Statement*: Needs to be in hospital for management of toxic megacolon. Coding Level of Care Code Acute Code for [facility] Diagnoses Clostridium difficile enterocolitis A04.72 Toxic megacolon K59.31 Hypokalemia E87.6 DVT (deep venous thrombosis) I82.409 Developmental disorder F89 Generalized epilepsy G40.309 Leukocytosis D72.829 Pseudomembranous colitis A04.72
--- NOTE | 2022-09-17 16:02 | PM.PN ---
Subjective Subjective: Patient denies any nausea or vomiting and says that his abdominal pain is appropriately controlled. Significant output from the ostomy today Vitals/I&O/Wt Last Vital Signs Temp 98.2 F 09/17/22 07:30 Pulse 71 09/17/22 14:30 Resp 18 09/17/22 14:30 BP 115/74 09/17/22 14:30 Pulse Ox 98 09/17/22 14:30 O2 Del Method 09/17/22 06:30 O2 Flow Rate 6 09/15/22 19:00 09/17/22 09/17/22 09/17/22 06:59 14:59 22:59 Intake Total 165 / 480 Output Total 1430 / 2990 815 / 815 Balance -1265 / -2510 -815 / -815 Weight last 48 hrs Weight 258 lb 8 oz Weight 272 lb 4.334 oz Physical Exam Narrative: General: No acute distress Abdomen: Soft, nondistended, appropriately tender to palpation, no guarding rebound or masses Ostomy pink patent and producing Dressings clean dry and intact Urinary Catheter Management: Saenz: Cath Placed During This Visit: yes Reason for Continuing Indwelling Catheter: Accurate Measurement of Urinary Output in Critically Ill Patients Urinary Catheter Date of Insertion: 09/02/22 Urinary Catheter Time of Insertion: 12:00 Data 09/17/22 02:09 09/17/22 02:09 A&P Assessment and plan (1) Toxic megacolon: Plan Postoperative day #2 status post subtotal colectomy and end ileostomy formation He tolerated clear liquids. Advance to full liquids Will be surgically stable for discharge likely tomorrow if tolerating regular diet Attestations Medical Necessity Statement*: Needs to be in hospital for management of toxic megacolon. Coding Level of Care Code Acute Code for [facility] Fwd Diagnoses Toxic megacolon K59.31
--- NOTE | 2022-09-17 17:52 | PC.NURSE ---
Patient was up to chair as a one person assist this afternoon. Tolerated well. PRN pain medication given once. NG and rectal tube removed this AM per Dr. Solomon.
--- NOTE | 2022-09-17 19:50 | PC.NURSE ---
Report called to Kellen on med surg. Care transferred.
[2022-09-18] VITALS (11 sets, daily range): BP systolic 96–120; BP diastolic 3–74; PULSE 61–88; RESP 14–18; TEMP 36.2–36.9; O2SAT 96–98
[2022-09-18] MEDS: enoxaparin 120 mg/0.8 mL Syringe SUBCUT (00:46)
[2022-09-18] MEDS: piperacillin-tazobactam 3.375 GM in sodium chloride 0.9% (plus) 50 ML IV ×3 (00:46→17:56)
[2022-09-18] MEDS: PHENYTOIN 25 MG/ML 250 MG NG-TUBE ×3 (01:44→17:57)
[2022-09-18] MEDS: pantoprazole 40 mg SDV IVP ×2 (09:27→22:27)
--- NOTE | 2022-09-18 12:29 | PM.PN ---
Subjective Subjective: Patient denies any nausea or vomiting, denies any abdominal pain. Medications: Reviewed: Yes Medication Review Details: Generic Name Dose Route Start Last Admin Trade Name Freq PRN Reason Stop Dose Admin Acetaminophen 650 mg 09/17/22 01:57 09/17/22 02:14 Acetaminophen 32 5 Mg Tablet PO 650 mg Q6H PRN Administration MILD PAIN Enoxaparin Sodium 120 mg 09/09/22 13:00 09/18/22 00:46 Enoxaparin 120 M g/0.8 Ml Syringe SUBCUT 120 mg Q12H OTIS Administration Hydromorphone HCl 1 mg 09/15/22 19:56 09/17/22 23:50 Hydromorphone 1 Mg/Ml Inj 1 Ml IVP 1 mg Q2H PRN Administration PAIN Levetiracetam 1,50 0 mg/ Sodium 115 mls @ 440 mls /hr 09/02/22 09:00 09/18/22 11:29 Chloride IV 440 mls/hr Q12H OTIS Administration Piperacillin Sod/T azobactam 50 mls @ 12.5 mls /hr 09/16/22 08:45 09/18/22 09:27 Sod 3.375 gm/ So dium Chloride IV 12.5 mls/hr Q8H OTIS Administration Protocol Lanolin 1 applic 09/05/22 07:00 09/16/22 12:47 Lanolin Oint 7 G m TOPICAL 1 applic PRN PRN Administration DRYNESS Ondansetron HCl 4 mg 09/02/22 03:02 09/16/22 22:19 Ondansetron 2 Mg /Ml Sdv 2 Ml IVP 4 mg Q8H PRN Administration vomiting, or N/V if npo Pantoprazole Sodiu m 40 mg 09/10/22 09:00 09/18/22 09:27 Pantoprazole 40 Mg Sdv IVP 40 mg Q12H OTIS Administration Phenytoin 250 mg 09/08/22 02:00 09/18/22 09:27 Phenytoin Oral S [facility] 25 Mg/Ml (Ml) NG-TUBE 250 mg Q8H OTIS Administration Vancomycin HCl 500 mg 09/16/22 17:00 09/18/22 10:16 Vancomycin 1,000 Mg Oral Tosha (Btl) PO 500 mg QID OTIS Administration Vitals/I&O/Wt Last Vital Signs Temp 98.3 F 09/18/22 08:41 Pulse 61 09/18/22 08:41 Resp 18 09/18/22 08:41 BP 97/62 09/18/22 08:41 Pulse Ox 96 09/18/22 08:41 O2 Del Method 09/18/22 08:41 O2 Flow Rate 6 09/15/22 19:00 09/17/22 09/18/22 09/18/22 22:59 06:59 14:59 Intake Total 1035 / 1085 165 / 1250 120 / 120 Output Total 320 / 1135 730 / 1865 450 / 450 Balance 715 / -50 -565 / -615 -330 / -330 Weight last 48 hrs Weight 125.73 kg Weight 117.254 kg Physical Exam Resp: COMMON NORMALS: clear to auscultation bilaterally EFFORT & INSPECTION: Yes symmetric chest movement AUSCULTATION: clear to auscultation bilaterally Cardio: COMMON NORMALS: regular rate, regular rhythm, S1 normal heart sound present, S2 normal heart sound present, No gallops present (Cardio), No murmurs present (Cardio), No rub (Cardio) and Peripheral pulses 2+ throughout RATE: regular rate RHYTHM: regular rhythm HEART SOUNDS: S1 normal heart sound present and S2 normal heart sound present PERIPHERAL PULSES: Peripheral pulses 2+ throughout GI: OTHER: Soft nondistended, ostomy in place, PRETTY drain in place, mild tenderness, no guarding no rigidity. Extremity: COMMON NORMALS: no clubbing, cyanosis or edema and no pedal edema Urinary Catheter Management: Saenz: Cath Placed During This Visit: yes Reason for Continuing Indwelling Catheter: Acute Urinary Retention or Obstruction Urinary Catheter Date of Insertion: 09/02/22 Urinary Catheter Time of Insertion: 12:00 Data 09/17/22 02:09 09/17/22 02:09 A&P Assessment and plan (1) Clostridium difficile enterocolitis: Patient admitted on September 01, 2022 with chief complaints of abdominal pain distention CT abdomen upon presentation showing markedly dilated sigmoid colon measuring up to 15 cm with an apparent transition point in the distal sigmoid colon. CT repeated on September 07, 2022 because of increased abdominal distention showed persistent colonic distention from mid transverse colon to rectosigmoid junction, measuring approximately 13.5 cm. Large amount of stool seen in the proximal colon. Overall clinical picture is compatible with that of fulminant C. difficile colitis with toxic megacolon. Completed colonoscopy on 09/08 with diffuse generalized colitis compatible with toxic megacolon. Patient has been on treatment with p.o. vancomycin 500 mg 4 times daily and IV Flagyl 500 mg 3 times a day since 09/02/22. Given no significant improvement with above medical therapy, added rectal vancomycin 500 mg every 6 hours as a retention enema on 09/08. We will complete extended tapered course of p.o. vancomycin. For total 1 month duration. 125 mg p.o. twice daily vancomycin for next 7 days, and then 125 mg p.o. daily for another 7 days. Started on TPN after placing PICC line on 09/09. Patient was on steroids for possible ischemic colitis. Which has been tapered off. Given no significant improvement in overall bowel distention. Patient underwent: S/p: Exploratory laparotomy, subtotal colectomy and end ileostomy. (2) Toxic megacolon: As a result of C. difficile colitis; treatment as above (3) Hypokalemia: repleted (4) DVT (deep venous thrombosis): Deep venous thrombosis of the left upper extremity, occlusive, involving the distal left brachial veins. Superficial thrombus additionally seen in left basilic vein. This was a site of a previous IV line. Low suspicion for DIC Currently on Lovenox 1 mg/kg every 12 hours . Of note the DVT developed on heparin prophylaxis 5000 every 12 hours. (5) Developmental disorder: (6) Generalized epilepsy: No breakthrough seizures currently. Continue his home doses of phenytoin, Keppra and lacosamide (7) Leukocytosis: Significant rise in white blood cell count to 48,000, after surgical intervention, likely reactive. Will empirically start him on Zosyn Peripheral blood smear review. I will restrict myself from sending lymphoma leukemia panel. (8) Pseudomembranous colitis: Attestations Medical Necessity Statement*: S/p subtotal colectomy. Needs to be in hospital for postoperative care. Coding Level of Care Code Acute Code for [facility] Diagnoses Clostridium difficile enterocolitis A04.72 Toxic megacolon K59.31 Hypokalemia E87.6 DVT (deep venous thrombosis) I82.409 Developmental disorder F89 Generalized epilepsy G40.309 Leukocytosis D72.829 Pseudomembranous colitis A04.72
[2022-09-18] MEDS: HYDROmorphone 1 mg/mL INJ 1 mL IVP (22:27)
[2022-09-18] MEDS: apixaban 5 mg Tablet 2.5 MG PO (22:27)
[2022-09-19] VITALS (10 sets, daily range): BP systolic 116–131; BP diastolic 70–86; PULSE 69–100; RESP 17–70; TEMP 36.4–37; O2SAT 95–98
[2022-09-19] MEDS: PHENYTOIN 25 MG/ML 250 MG NG-TUBE ×2 (01:19→11:34)
[2022-09-19] MEDS: piperacillin-tazobactam 3.375 GM in sodium chloride 0.9% (plus) 50 ML IV ×3 (01:19→16:52)
[2022-09-19 05:30] LABS: Basophils # 0.1 10^3/uL (0.0-0.1); Basophils % 0.4 %; Eosinophils # 0.4 10^3/uL (0.0-0.8); Eosinophils % 2.3 %; Hemoglobin 10.9 g/dL (11.7-16.6); Lymphocytes # 1.7 10^3/uL (0.8-4.8); Lymphocytes % 10.9 %; Mean Corpuscular HGB Conc 32.1 g/dL (30.0-36.0); Mean Corpuscular Hemoglobin 31.8 pg (28.0-34.0); Mean Corpuscular Volume 99.1 fl (80-94); Mean Platelet Volume 11.6 fL (7.4-10.4); Monocytes # 1.8 10^3/uL (0.2-0.9); Monocytes % 11.5 %; Neutrophils # 11.53 10^3/uL (1.8-7.7); Neutrophils % 72.9 %; Nucleated Red Blood Cells % 0 %; Platelet Count 125 10^3/cmm (130-400); Red Blood Count 3.43 10^6/uL (4.1-5.3); Red Cell Distribution Width 15.8 % (12.1-15.1); White Blood Count 15.8 10^3/uL (4.0-10.0)
[2022-09-19 05:57] LABS: Blood Urea Nitrogen 9 mg/dL (6-20); Calcium 8.2 mg/dL (8.5-10.5); Carbon Dioxide 23 mmol/L (22-29); Chloride 98 mmol/L (98-107); Glomerular Filtration Rate 506.7 mL/min (90-130); Glucose 94 mg/dL (65-115); Osmolality Calculated 270 mOsm/kg (285-295); Sodium 131 mmol/L (136-145)
[2022-09-19 05:58] LABS: Anion Gap 15.3 (5-19); Potassium 5.3 mmol/L (3.5-5.1)
[2022-09-19 06:07] LABS: Slide Review Slide Review Perform
[2022-09-19] MEDS: apixaban 5 mg Tablet 2.5 MG PO ×2 (10:13→20:24)
[2022-09-19] MEDS: pantoprazole 40 mg SDV IVP ×2 (10:15→20:24)
[2022-09-19] MEDS: PHENYTOIN 25 MG/ML 250 MG PO ×2 (11:47→18:52)
--- NOTE | 2022-09-19 12:58 | PC.SOCIAL ---
IMM update IMM updated with patient's mom, Tiffanie. Copy of page 2 provided. Tiffanie verbalized understanding. Copy in chart initialed, dated and timed.
--- NOTE | 2022-09-19 16:22 | P.PN_ITS ---
Subjective Subjective: Patient was seen and examined this morning denies any nausea vomiting, tolerating regular diet White blood cell count is appropriately coming down. Medications: Reviewed: Yes Medication Review Details: Generic Name Dose Route Start Last Admin Trade Name Freq PRN Reason Stop Dose Admin Acetaminophen 650 mg 09/17/22 01:57 09/17/22 02:14 Acetaminophen 32 5 Mg Tablet PO 650 mg Q6H PRN Administration MILD PAIN Apixaban 2.5 mg 09/18/22 21:00 09/19/22 10:13 Apixaban 5 Mg Ta blet PO 2.5 mg BID@0900,2100 OTIS Administration Hydromorphone HCl 1 mg 09/15/22 19:56 09/18/22 22:27 Hydromorphone 1 Mg/Ml Inj 1 Ml IVP 1 mg Q2H PRN Administration PAIN Levetiracetam 1,50 0 mg/ Sodium 115 mls @ 440 mls /hr 09/02/22 09:00 09/19/22 15:02 Chloride IV Infused Q12H OTIS Infusion Piperacillin Sod/T azobactam 50 mls @ 12.5 mls /hr 09/16/22 08:45 09/19/22 15:02 Sod 3.375 gm/ So dium Chloride IV Infused Q8H OTIS Infusion Protocol Lanolin 1 applic 09/05/22 07:00 09/16/22 12:47 Lanolin Oint 7 G m TOPICAL 1 applic PRN PRN Administration DRYNESS Ondansetron HCl 4 mg 09/02/22 03:02 09/16/22 22:19 Ondansetron 2 Mg /Ml Sdv 2 Ml IVP 4 mg Q8H PRN Administration vomiting, or N/V if npo Pantoprazole Sodiu m 40 mg 09/10/22 09:00 09/19/22 10:15 Pantoprazole 40 Mg Sdv IVP 40 mg Q12H OTIS Administration Phenytoin 250 mg 09/19/22 11:30 09/19/22 11:47 Phenytoin Oral S halfway 25 Mg/Ml (Ml) PO 250 mg Q8H OTIS Administration Vancomycin HCl 500 mg 09/16/22 17:00 09/19/22 13:11 Vancomycin 1,000 Mg Oral Tosha (Btl) PO 500 mg QID OTIS Administration Vitals/I&O/Wt Last Vital Signs Temp 98.6 F 09/19/22 12:00 Pulse 100 09/19/22 14:00 Resp 17 09/19/22 12:00 BP 119/74 09/19/22 12:00 Pulse Ox 98 09/19/22 12:00 O2 Del Method 09/19/22 12:00 O2 Flow Rate 6 09/15/22 19:00 09/19/22 09/19/22 09/19/22 06:59 14:59 22:59 Intake Total 450 / 1380 240 / 240 165 / 405 Output Total 1155 / 2455 555 / 555 Balance -705 / -1075 -315 / -315 165 / -150 Weight last 48 hrs Weight 123.831 kg Weight 125.73 kg Physical Exam Resp: COMMON NORMALS: clear to auscultation bilaterally EFFORT & INSPECTION: Yes symmetric chest movement AUSCULTATION: clear to auscultation bilaterally Cardio: COMMON NORMALS: regular rate, regular rhythm, S1 normal heart sound present, S2 normal heart sound present, No gallops present (Cardio), No murmurs present (Cardio), No rub (Cardio) and Peripheral pulses 2+ throughout RATE: regular rate RHYTHM: regular rhythm HEART SOUNDS: S1 normal heart sound present and S2 normal heart sound present PERIPHERAL PULSES: Peripheral pulses 2+ throughout GI: OTHER: Soft nondistended, ostomy in place, PRETTY drain in place Extremity: COMMON NORMALS: no clubbing, cyanosis or edema and no pedal edema Urinary Catheter Management: Saenz: Cath Placed During This Visit: yes Reason for Continuing Indwelling Catheter: Other Urinary Catheter Date of Insertion: 09/02/22 Urinary Catheter Time of Insertion: 12:00 Data 09/19/22 05:18 09/19/22 05:18 A&P Assessment and plan (1) Clostridium difficile enterocolitis: Patient admitted on September 01, 2022 with chief complaints of abdominal pain distention CT abdomen upon presentation showing markedly dilated sigmoid colon measuring up to 15 cm with an apparent transition point in the distal sigmoid colon. CT repeated on September 07, 2022 because of increased abdominal distention showed persistent colonic distention from mid transverse colon to rectosigmoid junction, measuring approximately 13.5 cm. Large amount of stool seen in the proximal colon. Overall clinical picture is compatible with that of fulminant C. difficile colitis with toxic megacolon. Completed colonoscopy on 09/08 with diffuse generalized colitis compatible with toxic megacolon. Patient has been on treatment with p.o. vancomycin 500 mg 4 times daily and IV Flagyl 500 mg 3 times a day since 09/02/22. Given no significant improvement with above medical therapy, added rectal vancomycin 500 mg every 6 hours as a retention enema on 09/08. We will complete extended tapered course of p.o. vancomycin. For total 1 month duration. 125 mg p.o. twice daily vancomycin for next 7 days, and then 125 mg p.o. daily for another 7 days. Started on TPN after placing PICC line on 09/09. Patient was on steroids for possible ischemic colitis. Which has been tapered off. Given no significant improvement in overall bowel distention. Patient underwent: S/p: Exploratory laparotomy, subtotal colectomy and end ileostomy. (2) Toxic megacolon: As a result of C. difficile colitis; treatment as above (3) Hypokalemia: repleted (4) DVT (deep venous thrombosis): Deep venous thrombosis of the left upper extremity, occlusive, involving the distal left brachial veins. Superficial thrombus additionally seen in left basilic vein. This was a site of a previous IV line. Low suspicion for DIC. Was on therapeutic anticoagulation with Lovenox Has changed to low-dose Eliquis p.o. twice daily (5) Developmental disorder: (6) Generalized epilepsy: No breakthrough seizures currently. Continue his home doses of phenytoin, Keppra and lacosamide (7) Leukocytosis: Significant rise in white blood cell count to 48,000, after surgical intervention, likely reactive. Will empirically start him on Zosyn Peripheral blood smear review. I will restrict myself from sending lymphoma leukemia panel. (8) Pseudomembranous colitis: Plan Disposition : patient is awaiting placement to long-term Attestations Medical Necessity Statement*: Needs to be in hospital for management of toxic megacolon. Awaiting placement. Coding Level of Care Code Acute Code for [facility] Fwd Exam Expanded Problem Focused Diagnoses Clostridium difficile enterocolitis A04.72 Toxic megacolon K59.31 Hypokalemia E87.6 DVT (deep venous thrombosis) I82.409 Developmental disorder F89 Generalized epilepsy G40.309 Leukocytosis D72.829 Pseudomembranous colitis A04.72
--- NOTE | 2022-09-19 17:21 | PM.PN ---
Subjective Subjective: Patient is tolerating a regular diet and having ostomy output Vitals/I&O/Wt Last Vital Signs Temp 97.6 F 09/19/22 16:00 Pulse 84 09/19/22 16:00 Resp 17 09/19/22 16:00 BP 111/49 09/19/22 16:00 Pulse Ox 92 09/19/22 16:00 O2 Del Method 09/19/22 16:00 O2 Flow Rate 6 09/15/22 19:00 09/19/22 09/19/22 09/19/22 06:59 14:59 22:59 Intake Total 450 / 1380 240 / 240 165 / 405 Output Total 1155 / 2455 555 / 555 870 / 1425 Balance -705 / -1075 -315 / -315 -705 / -1020 Weight last 48 hrs Weight 273 lb Weight 277 lb 3 oz Physical Exam Narrative: General: No acute distress Abdomen: Soft, nontender nondistended no guarding rebound or masses Incisions intact without erythema or exudate Ostomy pink patent and producing Urinary Catheter Management: Saenz: Cath Placed During This Visit: yes Reason for Continuing Indwelling Catheter: Other Urinary Catheter Date of Insertion: 09/02/22 Urinary Catheter Time of Insertion: 12:00 Data 09/19/22 05:18 09/19/22 05:18 A&P Assessment and plan (1) Toxic megacolon: Plan Postoperative day #4 status post exploratory laparotomy with subtotal colectomy and end ileostomy formation Regular diet Surgically stable for discharge Medical management per hospitalist Attestations Medical Necessity Statement*: Further hospitalization per hospitalist Coding Level of Care Code Acute Code for [facility] Diagnoses Toxic megacolon K59.31
[2022-09-19] MEDS: HYDROmorphone 1 mg/mL INJ 1 mL IVP (18:52)
[2022-09-20] VITALS (8 sets, daily range): BP systolic 117–133; BP diastolic 73–84; PULSE 68–101; RESP 16–18; TEMP 36.5–36.8; O2SAT 93–98
[2022-09-20] MEDS: piperacillin-tazobactam 3.375 GM in sodium chloride 0.9% (plus) 50 ML IV (01:17)
[2022-09-20] MEDS: PHENYTOIN 25 MG/ML 250 MG PO ×3 (03:01→19:09)
[2022-09-20 03:56] LABS: Basophils # 0.1 10^3/uL (0.0-0.1); Basophils % 0.5 %; Eosinophils # 0.4 10^3/uL (0.0-0.8); Eosinophils % 2.7 %; Hematocrit 30.8 % (42.0-52.0); Hemoglobin 9.9 g/dL (11.7-16.6); Lymphocytes # 2.1 10^3/uL (0.8-4.8); Lymphocytes % 14.7 %; Mean Corpuscular HGB Conc 32.1 g/dL (30.0-36.0); Mean Corpuscular Hemoglobin 31.7 pg (28.0-34.0); Mean Corpuscular Volume 98.7 fl (80-94); Mean Platelet Volume 9.8 fL (7.4-10.4); Monocytes # 1.7 10^3/uL (0.2-0.9); Monocytes % 11.8 %; Neutrophils # 9.51 10^3/uL (1.8-7.7); Neutrophils % 68.1 %; Nucleated Red Blood Cells % 0 %; Platelet Count 189 10^3/cmm (130-400); Red Blood Count 3.12 10^6/uL (4.1-5.3); Red Cell Distribution Width 16.1 % (12.1-15.1)
[2022-09-20 04:19] LABS: Anion Gap 12.9 (5-19); Blood Urea Nitrogen 10 mg/dL (6-20); Calcium 8.5 mg/dL (8.5-10.5); Carbon Dioxide 24 mmol/L (22-29); Chloride 101 mmol/L (98-107); Glomerular Filtration Rate 227.7 mL/min (90-130); Glucose 100 mg/dL (65-115); Osmolality Calculated 277 mOsm/kg (285-295); Potassium 3.9 mmol/L (3.5-5.1); Sodium 134 mmol/L (136-145)
[2022-09-20] MEDS: apixaban 5 mg Tablet 2.5 MG PO ×2 (09:05→21:29)
[2022-09-20] MEDS: acetaminophen 325 mg Tablet 650 MG PO (09:08)
[2022-09-20] MEDS: pantoprazole 40 mg SDV IVP (09:09)
--- NOTE | 2022-09-20 11:44 | USR_ITS ---
PROCEDURE INFORMATION: Exam: US Duplex Lower Extremity Arteries Exam date and time: 09/20/2022 1:41 PM Age: 51 years old Clinical indication: Other: Non healing wounds lower extremities; Additional info: R/O pvd TECHNIQUE: Imaging protocol: Real-time ultrasound scan of the arteries of the bilateral lower extremities with 2-D muniz scale, color Doppler flow and spectral waveform analysis. Images documented and saved. COMPARISON: [place] [id number] 06/26/2021 9:28 AM FINDINGS: Right common femoral artery: No occlusion or significant stenosis. Normal waveform. Right superficial femoral artery: No occlusion or significant stenosis. Normal waveform. Right popliteal artery: No occlusion or significant stenosis. Normal waveform. Right calf/foot arteries: No occlusion or significant stenosis in the visualized arteries. Normal waveforms. Dorsalis pedis artery is patent. Left common femoral artery: No occlusion or significant stenosis. Normal waveform. Left superficial femoral artery: No occlusion or significant stenosis. Normal waveform. Left popliteal artery: No occlusion or significant stenosis. Normal waveform. Left calf/foot arteries: No occlusion or significant stenosis in the visualized arteries. Normal waveforms. Dorsalis pedis artery is patent. US/CV arterial duplex [facility] [id number] IMPRESSION: No stenosis or occlusion.
--- NOTE | 2022-09-20 15:07 | P.PN_ITS ---
Subjective Subjective: Patient was seen and examined this morning Medications: Reviewed: Yes Medication Review Details: Generic Name Dose Route Start Last Admin Trade Name Freq PRN Reason Stop Dose Admin Acetaminophen 650 mg 09/17/22 01:57 09/20/22 09:08 Acetaminophen 32 5 Mg Tablet PO 650 mg Q6H PRN Administration MILD PAIN Apixaban 2.5 mg 09/18/22 21:00 09/20/22 09:05 Apixaban 5 Mg Ta blet PO 2.5 mg BID@0900,2100 OTIS Administration Lanolin 1 applic 09/05/22 07:00 09/16/22 12:47 Lanolin Oint 7 G m TOPICAL 1 applic PRN PRN Administration DRYNESS Ondansetron HCl 4 mg 09/02/22 03:02 09/16/22 22:19 Ondansetron 2 Mg /Ml Sdv 2 Ml IVP 4 mg Q8H PRN Administration vomiting, or N/V if npo Pantoprazole Sodiu m 40 mg 09/10/22 09:00 09/20/22 09:09 Pantoprazole 40 Mg Sdv IVP 40 mg Q12H OTIS Administration Phenytoin 250 mg 09/19/22 11:30 09/20/22 11:21 Phenytoin Oral S skilled nursing 25 Mg/Ml (Ml) PO 250 mg Q8H OTIS Administration Vancomycin HCl 500 mg 09/16/22 17:00 09/20/22 13:22 Vancomycin 1,000 Mg Oral Tosha (Btl) PO 500 mg QID OTIS Administration Vitals/I&O/Wt Last Vital Signs Temp 98.1 F 09/20/22 12:00 Pulse 101 H 09/20/22 12:00 Resp 17 09/20/22 12:00 BP 117/78 09/20/22 12:00 Pulse Ox 93 09/20/22 12:00 O2 Del Method 09/20/22 12:00 O2 Flow Rate 6 09/15/22 19:00 09/20/22 09/20/22 09/20/22 06:59 14:59 22:59 Intake Total 50 / 980 715 / 715 Output Total 1355 / 2780 1045 / 1045 Balance -1305 / -1800 -330 / -330 Weight last 48 hrs Weight 118.66 kg Weight 123.831 kg Physical Exam Resp: COMMON NORMALS: clear to auscultation bilaterally EFFORT & INSPECTION: Yes symmetric chest movement AUSCULTATION: clear to auscultation bilaterally Cardio: COMMON NORMALS: regular rate, regular rhythm, S1 normal heart sound present, S2 normal heart sound present, No gallops present (Cardio), No murmurs present (Cardio), No rub (Cardio) and Peripheral pulses 2+ throughout RATE: regular rate RHYTHM: regular rhythm HEART SOUNDS: S1 normal heart sound present and S2 normal heart sound present PERIPHERAL PULSES: Peripheral pulses 2+ throughout GI: OTHER: Soft nondistended, ostomy in place, PRETTY drain in place Extremity: COMMON NORMALS: no clubbing, cyanosis or edema and no pedal edema Urinary Catheter Management: Saenz: Cath Placed During This Visit: yes Reason for Continuing Indwelling Catheter: Other Urinary Catheter Date of Insertion: 09/02/22 Urinary Catheter Time of Insertion: 12:00 Data 09/20/22 03:38 09/20/22 03:38 A&P Assessment and plan (1) Clostridium difficile enterocolitis: Patient admitted on September 01, 2022 with chief complaints of abdominal pain distention CT abdomen upon presentation showing markedly dilated sigmoid colon measuring up to 15 cm with an apparent transition point in the distal sigmoid colon. CT repeated on September 07, 2022 because of increased abdominal distention showed persistent colonic distention from mid transverse colon to rectosigmoid junction, measuring approximately 13.5 cm. Large amount of stool seen in the proximal colon. Overall clinical picture is compatible with that of fulminant C. difficile colitis with toxic megacolon. Completed colonoscopy on 09/08 with diffuse generalized colitis compatible with toxic megacolon. Patient has been on treatment with p.o. vancomycin 500 mg 4 times daily and IV Flagyl 500 mg 3 times a day since 09/02/22. Given no significant improvement with above medical therapy, rectal vancomycin 500 mg every 6 hours as a retention enema was added on 09/08. We will complete extended tapered course of p.o. vancomycin. For total 1 month duration. 125 mg p.o. twice daily vancomycin for next 7 days, and then 125 mg p.o. daily for another 7 days. Was on TPN after placing PICC line on 09/09. Patient was on steroids for possible ischemic colitis. Which has been tapered off. Given no significant improvement in overall bowel distention. Patient underwent: S/p: Exploratory laparotomy, subtotal colectomy and end ileostomy. (2) Toxic megacolon: As a result of C. difficile colitis; treatment as above (3) Hypokalemia: Monitor serum potassium and accordingly corrected. (4) DVT (deep venous thrombosis): Deep venous thrombosis of the left upper extremity, occlusive, involving the distal left brachial veins. Superficial thrombus additionally seen in left basilic vein. This was a site of a previous IV line. Low suspicion for DIC. Was on therapeutic anticoagulation with Lovenox Has changed to low-dose Eliquis p.o. twice daily (5) Developmental disorder: (6) Generalized epilepsy: No breakthrough seizures currently. Continue his home doses of phenytoin, Keppra and lacosamide (7) Leukocytosis: Significant rise in white blood cell count to 48,000, after surgical intervention, likely reactive. Was empirically started on Zosyn has been discontinued. Peripheral blood smear review. I will restrict myself from sending lymphoma leukemia panel. 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 Disposition : patient is awaiting placement to care home Attestations Medical Necessity Statement*: Currently awaiting care home placement. Coding Level of Care Code Acute Code for [facility] Diagnoses Clostridium difficile enterocolitis A04.72 Toxic megacolon K59.31 Hypokalemia E87.6 DVT (deep venous thrombosis) I82.409 Developmental disorder F89 Generalized epilepsy G40.309 Leukocytosis D72.829 Pseudomembranous colitis A04.72
[2022-09-20] MEDS: levETIRAcetam 500 mg Tablet 1500 MG PO (17:19)
[2022-09-20] MEDS: pantoprazole DR 40 mg Tablet PO (17:19)
[2022-09-21] VITALS (8 sets, daily range): BP systolic 110–143; BP diastolic 74–83; PULSE 68–78; RESP 16–18; TEMP 36.6–37.3; O2SAT 94–97
[2022-09-21 02:29] LABS: Basophils # 0.1 10^3/uL (0.0-0.1); Basophils % 0.5 %; Eosinophils # 0.4 10^3/uL (0.0-0.8); Eosinophils % 2.2 %; Hemoglobin 11.3 g/dL (11.7-16.6); Lymphocytes # 2.5 10^3/uL (0.8-4.8); Lymphocytes % 14.2 %; Mean Corpuscular HGB Conc 33.2 g/dL (30.0-36.0); Mean Corpuscular Hemoglobin 31.9 pg (28.0-34.0); Mean Platelet Volume 10.1 fL (7.4-10.4); Monocytes # 1.6 10^3/uL (0.2-0.9); Monocytes % 8.9 %; Neutrophils # 12.55 10^3/uL (1.8-7.7); Neutrophils % 71.8 %; Nucleated Red Blood Cells % 0 %; Platelet Count 262 10^3/cmm (130-400); Red Blood Count 3.54 10^6/uL (4.1-5.3); Red Cell Distribution Width 16.8 % (12.1-15.1); White Blood Count 17.5 10^3/uL (4.0-10.0)
[2022-09-21 02:56] LABS: Anion Gap 12.9 (5-19); Blood Urea Nitrogen 11 mg/dL (6-20); Calcium 8.5 mg/dL (8.5-10.5); Carbon Dioxide 25 mmol/L (22-29); Chloride 98 mmol/L (98-107); Glomerular Filtration Rate 227.7 mL/min (90-130); Glucose 113 mg/dL (65-115); Osmolality Calculated 274 mOsm/kg (285-295); Potassium 3.9 mmol/L (3.5-5.1); Sodium 132 mmol/L (136-145)
[2022-09-21] MEDS: PHENYTOIN 25 MG/ML 250 MG PO ×3 (04:01→18:23)
[2022-09-21] MEDS: apixaban 5 mg Tablet 2.5 MG PO (10:11)
[2022-09-21] MEDS: pantoprazole DR 40 mg Tablet PO ×2 (10:11→18:23)
[2022-09-21] MEDS: levETIRAcetam 500 mg Tablet 1500 MG PO ×2 (10:11→18:23)
--- NOTE | 2022-09-21 14:27 | PM.PN ---
Subjective Subjective: Patient is tolerating a regular diet and having ostomy output Vitals/I&O/Wt Last Vital Signs Temp 98.4 F 09/21/22 12:00 Pulse 78 09/21/22 12:00 Resp 16 09/21/22 12:00 BP 128/74 09/21/22 12:00 Pulse Ox 94 09/21/22 12:00 O2 Del Method 09/21/22 12:00 O2 Flow Rate 6 09/15/22 19:00 09/20/22 09/21/22 09/21/22 22:59 06:59 14:59 Intake Total 240 / 955 600 / 600 Output Total 900 / 1945 925 / 2870 Balance -660 / -990 -925 / -1915 600 / 600 Weight last 48 hrs Weight 272 lb 6.4 oz Weight 261 lb 9.6 oz Physical Exam Narrative: General: No acute distress Abdomen: Soft, nontender nondistended no guarding rebound or masses Incisions intact without erythema or exudate Drain serosanguineous Ostomy pink patent and producing Urinary Catheter Management: Saenz: Cath Placed During This Visit: yes Reason for Continuing Indwelling Catheter: Acute Urinary Retention or Obstruction Urinary Catheter Date of Insertion: 09/02/22 Urinary Catheter Time of Insertion: 12:00 Data 09/21/22 01:46 09/21/22 01:46 A&P Assessment and plan (1) Toxic megacolon: Plan Postoperative day #6 status post exploratory laparotomy with subtotal colectomy and end ileostomy formation Regular diet Surgically stable for discharge Medical management per hospitalist Follow-up with me in 1 week Attestations Medical Necessity Statement*: Further hospitalization per hospitalist Coding Level of Care Code Acute Code for [facility] Diagnoses Toxic megacolon K59.31
--- NOTE | 2022-09-21 15:04 | PC.SOCIAL ---
IMM Updated Updated pt's mom on IMM. No questions voiced. Provided pt a copy. Initialed, dated, & timed copy in chart.
--- NOTE | 2022-09-21 16:47 | PC.NURSE ---
Removed Vance drain to left abdomen per Dr. Solomon's order using aseptic technique. Patient tolerated procedure well.
--- NOTE | 2022-09-21 17:52 | PM.PN ---
Subjective Subjective: Hospital course, labs appreciated. Seen with family at bedside. Colostomy bag changed. Patient denies any nausea, ting, headache. Family concern for poor oral intake. Patient is able to take regular diet. Passing flatus and fecal matter in colostomy bag. Has remained hemodynamically stable and afebrile. Continues to remain on room air. Vitals/I&O/Wt Last Vital Signs Temp 98 F 09/21/22 16:00 Pulse 74 09/21/22 16:00 Resp 18 09/21/22 16:00 BP 110/74 09/21/22 16:00 Pulse Ox 94 09/21/22 16:00 O2 Del Method 09/21/22 16:00 O2 Flow Rate 6 09/15/22 19:00 09/21/22 09/21/22 09/21/22 06:59 14:59 22:59 Intake Total 600 / 600 Output Total 925 / 2870 Balance -925 / -1915 600 / 600 Weight last 48 hrs Weight 123.559 kg Weight 118.66 kg Physical Exam Resp: COMMON NORMALS: clear to auscultation bilaterally EFFORT & INSPECTION: Yes symmetric chest movement AUSCULTATION: clear to auscultation bilaterally Cardio: COMMON NORMALS: regular rate, regular rhythm, S1 normal heart sound present, S2 normal heart sound present, No gallops present (Cardio), No murmurs present (Cardio), No rub (Cardio) and Peripheral pulses 2+ throughout RATE: regular rate RHYTHM: regular rhythm HEART SOUNDS: S1 normal heart sound present and S2 normal heart sound present PERIPHERAL PULSES: Peripheral pulses 2+ throughout GI: OTHER: Soft nondistended, ostomy in place, Extremity: COMMON NORMALS: no clubbing, cyanosis or edema and no pedal edema Urinary Catheter Management: Saenz: Cath Placed During This Visit: yes Reason for Continuing Indwelling Catheter: Acute Urinary Retention or Obstruction Urinary Catheter Date of Insertion: 09/02/22 Urinary Catheter Time of Insertion: 12:00 Data 09/21/22 01:46 09/21/22 01:46 A&P Assessment and plan (1) Clostridium difficile enterocolitis: Patient admitted on September 01, 2022 with chief complaints of abdominal pain distention CT abdomen upon presentation showing markedly dilated sigmoid colon measuring up to 15 cm with an apparent transition point in the distal sigmoid colon. CT repeated on September 07, 2022 because of increased abdominal distention showed persistent colonic distention from mid transverse colon to rectosigmoid junction, measuring approximately 13.5 cm. Large amount of stool seen in the proximal colon. Overall clinical picture is compatible with that of fulminant C. difficile colitis with toxic megacolon. Completed colonoscopy on 09/08 with diffuse generalized colitis compatible with toxic megacolon. Patient has been on treatment with p.o. vancomycin 500 mg 4 times daily and IV Flagyl 500 mg 3 times a day since 09/02/22. Given no significant improvement with above medical therapy, rectal vancomycin 500 mg every 6 hours as a retention enema was added on 09/08. We will complete extended tapered course of p.o. vancomycin. For total 1 month duration. 125 mg p.o. twice daily vancomycin for next 7 days, and then 125 mg p.o. daily for another 7 days. Was on TPN after placing PICC line on 09/09. Patient was on steroids for possible ischemic colitis which has since been tapered off. Given no significant improvement in overall bowel distention. 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 Continue with vancomycin taper. Currently on 125 mg twice daily. Appreciate surgical recommendations. (2) Toxic megacolon: Resolved. As a result of C. difficile colitis. Treatment as above (3) Hypokalemia: Monitor serum potassium and accordingly corrected. (4) DVT (deep venous thrombosis): Deep venous thrombosis of the left upper extremity, occlusive, involving the distal left brachial veins. Superficial thrombus additionally seen in left basilic vein. This was a site of a previous IV line. Low suspicion for DIC. Was on therapeutic anticoagulation with Lovenox Has changed to Eliquis 5 mg twice daily. (5) Developmental disorder: (6) Generalized epilepsy: No breakthrough seizures currently. Continue his home doses of phenytoin, Keppra and lacosamide (7) Leukocytosis: Significant rise in white blood cell count to 48,000, after surgical intervention, likely reactive. Was empirically started on Zosyn has been discontinued. Peripheral blood smear review. Leukocytes are trending down and stable at around 17.5. Patient has remained afebrile. Hold off on any further work-up for now. Continue to monitor. 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 Regular diet. Add Ensure with each meal. Treva advised DVT prophylaxis Protonix OPD prophylaxis Discharge planning: Given prolonged hospitalization and physical deconditioning patient will benefit from SNF placement for short-term for physical rehabilitation. Family agreeable. Case management has been alerted. Patient has been accepted at [place]. Awaiting authorization. Care discussed in detail with patient's mother at bedside. All the questions were answered. Attestations Medical Necessity Statement*: Requires further hospitalization for management of toxic megacolon in setting of C. difficile colitis, post expiratory laparotomy while safe discharge planning is sought. Time Spent in Patient Care: Greater than 35 minutes Coding Level of Care Code Acute Code for [facility] Diagnoses Clostridium difficile enterocolitis A04.72 Toxic megacolon K59.31 Hypokalemia E87.6 DVT (deep venous thrombosis) I82.409 Developmental disorder F89 Generalized epilepsy G40.309 Leukocytosis D72.829 Pseudomembranous colitis A04.72
[2022-09-21] MEDS: apixaban 5 mg Tablet PO (20:49)
[2022-09-22] VITALS: BP 111/76; PULSE 69; RESP 17; TEMP 36.6
[2022-09-22 04:00] VITALS: BP 111/76; PULSE 69; RESP 17; TEMP 36.6; O2SAT 97
[2022-09-22] MEDS: PHENYTOIN 25 MG/ML 250 MG PO ×3 (04:06→18:40)
[2022-09-22 06:13] LABS: Basophils # 0.1 10^3/uL (0.0-0.1); Basophils % 0.6 %; Eosinophils # 0.6 10^3/uL (0.0-0.8); Eosinophils % 3.4 %; Hematocrit 34.4 % (42.0-52.0); Hemoglobin 11.5 g/dL (11.7-16.6); Lymphocytes # 2.8 10^3/uL (0.8-4.8); Lymphocytes % 15.1 %; Mean Corpuscular HGB Conc 33.4 g/dL (30.0-36.0); Mean Corpuscular Volume 98.6 fl (80-94); Mean Platelet Volume 10.7 fL (7.4-10.4); Monocytes # 1.9 10^3/uL (0.2-0.9); Monocytes % 10.2 %; Neutrophils # 12.37 10^3/uL (1.8-7.7); Neutrophils % 67.4 %; Nucleated Red Blood Cells % 0 %; Platelet Count 235 10^3/cmm (130-400); Red Blood Count 3.49 10^6/uL (4.1-5.3); White Blood Count 18.3 10^3/uL (4.0-10.0)
[2022-09-22 06:32] LABS: Alanine Aminotransferase 131 U/L (0-41); Albumin Level 3.4 g/dL (3.5-5.2); Alkaline Phosphatase 113 U/L (40-130); Blood Urea Nitrogen 12 mg/dL (6-20); Calcium 8.6 mg/dL (8.5-10.5); Carbon Dioxide 23 mmol/L (22-29); Chloride 100 mmol/L (98-107); Globulin 2.9 g/dL (1.3-4.6); Glomerular Filtration Rate 227.7 mL/min (90-130); Glucose 104 mg/dL (65-115); Osmolality Calculated 276 mOsm/kg (285-295); Sodium 133 mmol/L (136-145); Total Bilirubin 0.9 mg/dL (0.15-1.2); Total Protein 6.3 g/dL (6.6-8.7)
[2022-09-22 06:46] LABS: Anion Gap 14.2 (5-19); Potassium 4.2 mmol/L (3.5-5.1)
[2022-09-22 06:47] LABS: Aspartate Amino Transferase 121 U/L (0-40)
[2022-09-22 08:00] VITALS: BP 115/78; PULSE 69; TEMP 36.8; O2SAT 95
[2022-09-22] MEDS: pantoprazole DR 40 mg Tablet PO ×2 (09:40→17:57)
[2022-09-22] MEDS: apixaban 5 mg Tablet PO ×2 (09:40→21:51)
[2022-09-22] MEDS: levETIRAcetam 500 mg Tablet 1500 MG PO ×2 (09:40→17:57)
[2022-09-22 12:00] VITALS: BP 129/88; PULSE 74; TEMP 36.7; O2SAT 98
--- NOTE | 2022-09-22 15:33 | P.PN_ITS ---
Subjective Subjective: No acute vents overnight. Patient denies any nausea, vomiting, headache. Appetite is better today. Sitting up in chair. Worked well with physical therapy. Able to walk with minimal assist. Otherwise has remained hemodynamically stable afebrile on room air. Saenz catheter removed yesterday. Vitals/I&O/Wt Last Vital Signs Temp 98.1 F 09/22/22 12:00 Pulse 74 09/22/22 12:00 Resp 17 09/22/22 04:00 BP 129/88 09/22/22 12:00 Pulse Ox 98 09/22/22 12:00 O2 Del Method 09/22/22 12:00 O2 Flow Rate 6 09/15/22 19:00 09/22/22 09/22/22 09/22/22 06:59 14:59 22:59 Intake Total 240 / 240 Balance 240 / 240 Weight last 48 hrs Weight 114.033 kg Weight 123.559 kg Physical Exam Const: COMMON NORMALS: no acute distress, alert and well nourished EXAM LIMITATIONS: behavioral limitations GENERAL APPEARANCE: cooperative, comfortable and well hydrated Resp: COMMON NORMALS: clear to auscultation bilaterally EFFORT & INSPECTION: Yes symmetric chest movement AUSCULTATION: clear to auscultation bilaterally Cardio: COMMON NORMALS: regular rate, regular rhythm, S1 normal heart sound present, S2 normal heart sound present, No gallops present (Cardio), No murmurs present (Cardio), No rub (Cardio) and Peripheral pulses 2+ throughout RATE: regular rate RHYTHM: regular rhythm HEART SOUNDS: S1 normal heart sound present and S2 normal heart sound present PERIPHERAL PULSES: Peripheral pulses 2+ throughout GI: OTHER: Soft nondistended, ostomy in place, Extremity: COMMON NORMALS: no clubbing, cyanosis or edema and no pedal edema Neuro: SENSORIUM/ORIENTATION: Yes alert Urinary Catheter Management: Saenz: Cath Placed During This Visit: yes, but has since been removed by the nurse Reason for Continuing Indwelling Catheter: Accurate Measurement of Urinary Output in Critically Ill Patients Urinary Catheter Date of Insertion: 09/02/22 Urinary Catheter Time of Insertion: 12:00 Date Urinary Catheter Removed: 09/21/22 Time Urinary Catheter Discontinued: 15:00 Data 09/22/22 06:02 09/22/22 06:02 A&P Assessment and plan (1) Clostridium difficile enterocolitis: Patient admitted on September 01, 2022 with chief complaints of abdominal pain distention CT abdomen upon presentation showing markedly dilated sigmoid colon measuring up to 15 cm with an apparent transition point in the distal sigmoid colon. CT repeated on September 07, 2022 because of increased abdominal distention showed persistent colonic distention from mid transverse colon to rectosigmoid junction, measuring approximately 13.5 cm. Large amount of stool seen in the proximal colon. Overall clinical picture is compatible with that of fulminant C. difficile colitis with toxic megacolon. Completed colonoscopy on 09/08 with diffuse generalized colitis compatible with toxic megacolon. Patient has been on treatment with p.o. vancomycin 500 mg 4 times daily and IV Flagyl 500 mg 3 times a day since 09/02/22. Given no significant improvement with above medical therapy, rectal vancomycin 500 mg every 6 hours as a retention enema was added on 09/08. We will complete extended tapered course of p.o. vancomycin. For total 1 month duration. 125 mg p.o. twice daily vancomycin for next 7 days, and then 125 mg p.o. daily for another 7 days. Was on TPN after placing PICC line on 09/09. Patient was on steroids for possible ischemic colitis which has since been tapered off. Given no significant improvement in overall bowel distention. 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 Continue with vancomycin taper. Currently on 125 mg twice daily. Appreciate surgical recommendations. (2) Toxic megacolon: Resolved. As a result of C. difficile colitis. Treatment as above (3) Hypokalemia: Monitor serum potassium and accordingly corrected. (4) DVT (deep venous thrombosis): Deep venous thrombosis of the left upper extremity, occlusive, involving the distal left brachial veins. Superficial thrombus additionally seen in left basilic vein. This was a site of a previous IV line. Low suspicion for DIC. Was on therapeutic anticoagulation with Lovenox Has changed to Eliquis 5 mg twice daily. (5) Developmental disorder: (6) Generalized epilepsy: No breakthrough seizures currently. Continue his home doses of phenytoin, Keppra and lacosamide (7) Leukocytosis: Significant rise in white blood cell count to 48,000, after surgical intervention, likely reactive. Was empirically started on Zosyn has been discontinued. Peripheral blood smear review. Leukocytes are trending down and stable at around 17.5. Patient has remained afebrile. Hold off on any further work-up for now. Continue to monitor. 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 Regular diet. Add Ensure with each meal. Treva advised DVT prophylaxis Protonix OPD prophylaxis Plan for the day: Continue to work with physical therapy. Continue with vancomycin 125 mg twice daily. We will continue to taper as needed. Monitor bowel regimen. Awaiting level 2 prior authorization for placement. Given improvement in physical activity and requirements Will confirm with patient and patient's family regarding further discharge planning of home with home health versus SNF. Discharge planning: Given prolonged hospitalization and physical deconditioning patient will benefit from SNF placement for short-term for physical rehabilitation. Family agreeable. Case management has been alerted. Patient has been accepted at [place]. Awaiting authorization. Care discussed in detail with patient's mother at bedside. All the questions were answered. Attestations Medical Necessity Statement*: Requires further hospitalization for management of postoperative care post colostomy for toxic megacolon in setting of C. difficile colitis right safe discharge planning is sought. Time Spent in Patient Care: 16 - 35 minutes Coding Level of Care Code Acute Code for [facility] Fwd Diagnoses Clostridium difficile enterocolitis A04.72 Toxic megacolon K59.31 Hypokalemia E87.6 DVT (deep venous thrombosis) I82.409 Developmental disorder F89 Generalized epilepsy G40.309 Leukocytosis D72.829 Pseudomembranous colitis A04.72
[2022-09-22 16:00] VITALS: BP 127/83; PULSE 74; TEMP 37.2; O2SAT 98
[2022-09-22 20:00] VITALS: BP 116/71; PULSE 73; RESP 16; TEMP 37.3; O2SAT 95
[2022-09-23] VITALS (7 sets, daily range): BP systolic 98–135; BP diastolic 70–80; PULSE 67–76; RESP 16–23; TEMP 36.8–37.8; O2SAT 95–99
[2022-09-23] MEDS: PHENYTOIN 25 MG/ML 250 MG PO ×3 (03:36→18:38)
--- NOTE | 2022-09-23 08:20 | PC.SOCIAL ---
IMM update IMM updated with patient's mom, Tiffanie. Copy of page 2 provided. Tiffanie verbalized understanding. Copy in chart initialed, dated and timed.
[2022-09-23] MEDS: apixaban 5 mg Tablet PO ×2 (08:28→20:13)
[2022-09-23] MEDS: pantoprazole DR 40 mg Tablet PO ×2 (08:28→17:09)
[2022-09-23] MEDS: levETIRAcetam 500 mg Tablet 1500 MG PO ×2 (08:28→17:09)
--- NOTE | 2022-09-23 11:12 | P.PN_ITS ---
Subjective Subjective: No acute events overnight. Patient seems to be at his baseline mentation. Has remained hemodynamically stable. Seen walking around in the hallway today or by himself today. T-max in the last 24 hours 100.1 Fahrenheit. Vitals/I&O/Wt Last Vital Signs Temp 98.5 F 09/23/22 08:00 Pulse 72 09/23/22 08:00 Resp 18 09/23/22 08:00 BP 134/74 09/23/22 08:00 Pulse Ox 97 09/23/22 08:00 O2 Del Method 09/23/22 08:00 O2 Flow Rate 6 09/15/22 19:00 09/22/22 09/23/22 09/23/22 22:59 06:59 14:59 Intake Total 240 / 480 480 / 480 Balance 240 / 480 480 / 480 Weight last 48 hrs Weight 114.033 kg Physical Exam Const: COMMON NORMALS: no acute distress, alert and well nourished EXAM LIMITATIONS: behavioral limitations GENERAL APPEARANCE: cooperative, comfortable and well hydrated Resp: COMMON NORMALS: clear to auscultation bilaterally EFFORT & INS PECTION: Yes symmetric chest movement AUSCULTATION: clear to auscultation bilaterally Cardio: COMMON NORMALS: regular rate, regular rhythm, S1 normal heart sound present, S2 normal heart sound present, No gallops present (Cardio), No murmurs present (Cardio), No rub (Cardio) and Peripheral pulses 2+ throughout RATE: regular rate RHYTHM: regular rhythm HEART SOUNDS: S1 normal heart sound present and S2 normal heart sound present PERIPHERAL PULSES: Peripheral pulses 2+ throughout GI: OTHER: Soft nondistended, ostomy in place, Extremity: COMMON NORMALS: no clubbing, cyanosis or edema and no pedal edema Neuro: SENSORIUM/ORIENTATION: Yes alert Urinary Catheter Management: Saenz: Cath Placed During This Visit: yes, but has since been removed by the nurse Reason for Continuing Indwelling Catheter: Other Urinary Catheter Date of Insertion: 09/02/22 Urinary Catheter Time of Insertion: 12:00 Date Urinary Catheter Removed: 09/21/22 Time Urinary Catheter Discontinued: 15:00 Data 09/22/22 06:02 09/22/22 06:02 A&P Assessment and plan (1) Clostridium difficile enterocolitis: Patient admitted on September 01, 2022 with chief complaints of abdominal pain distention CT abdomen upon presentation showing markedly dilated sigmoid colon measuring up to 15 cm with an apparent transition point in the distal sigmoid colon. CT repeated on September 07, 2022 because of increased abdominal distention showed persistent colonic distention from mid transverse colon to rectosigmoid junctio n, measuring approximately 13.5 cm. Large amount of stool seen in the proximal colon. Overall clinical picture is compatible with that of fulminant C. difficile colitis with toxic megacolon. Completed colonoscopy on 09/08 with diffuse generalized colitis compatible with toxic megacolon. Patient has been on treatment with p.o. vancomycin 500 mg 4 times daily and IV Flagyl 500 mg 3 times a day since 09/02/22. Given no significant improvement with above medical therapy, rectal vancomycin 500 mg every 6 hours as a retention enema was added on 09/08. We will complete extended tapered course of p.o. vancomycin. For total 1 month duration. 125 mg p.o. twice daily vancomycin for next 7 days, and then 125 mg p.o. daily for another 7 days. Was on TPN after placing PICC line on 09/09. Patient was on steroids for possible ischemic colitis which has since been tapered off. Given no significant improvement in overall bowel distention. 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 Given that patient is having multiple bowel movements through colostomy having persistent leukocytosis and mild fever now we will put him back on 125 4 times daily of oral vancomycin. Appreciate surgical recommendations. (2) Toxic megacolon: Resolved. As a result of C. difficile colitis. Treatment as above (3) Leukocytosis: Significant rise in white blood cell count to 48,000, after surgical intervention, likely reactive. Was empirically started on Zosyn has been discontinued. Peripheral blood smear review. Because of persistent leukocytosis and mild low-grade fever now we will increase the dose of vancomycin again to 4 times daily. Check urinalysis. Check liver ultrasound. He did have cholelithiasis on CT abdomen. (4) Hypokalemia: Monitor serum potassium and accordingly corrected. (5) DVT (deep venous thrombosis): Deep venous thrombosis of the left upper extremity, occlusive, involving the distal left brachial veins. Superficial thrombus additionally seen in left basilic vein. This was a site of a previous IV line. Low suspicion for DIC. Was on therapeutic anticoagulation with Lovenox Has changed to Eliquis 5 mg twice daily. (6) Developmental disorder: (7) Generalized epilepsy: No breakthrough seizures currently. 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 Regular diet. Add Ensure with each meal. Eliquis advised DVT prophylaxis Protonix OPD prophylaxis Plan for the day: Continue to work with physical therapy. Urinalysis, liver ultrasound. Increase vancomycin to 125 4 times daily. Monitor bowel regimen. Awaiting level 2 prior authorization for placement. Given improvement in physical activity and requirements Will confirm with patient and patient's family regarding further discharge planning of home with home health versus SNF. Discharge planning: Given prolonged hospitalization and physical deconditioning patient will benefit from SNF placement for short-term for physical rehabilitation. Family agreeable. Case management has been alerted. Patient has been accepted at [facility]. Awaiting authorization. Care discussed in detail with patient's mother at bedside. All the questions were answered. Attestations Medical Necessity Statement*: Requires further hospitalization for management of toxic megacolon in setting of fulminant C. difficile, postoperative care, persistent leukocytosis while safe discharge planning is sought Time Spent in Patient Care: Greater than 35 minutes Coding Level of Care Code Acute Code for [facility] Fwd Diagnoses Clostridium difficile enterocolitis A04.72 Toxic megacolon K59.31 Leukocytosis D72.829 Hypokalemia E87.6 DVT (deep venous thrombosis) I82.409 Developmental disorder F89 Generalized epilepsy G40.309 Pseudomembranous colitis A04.72
--- NOTE | 2022-09-23 11:23 | USR_ITS ---
PROCEDURE INFORMATION: Exam: US Abdomen, Limited; Right Upper Quadrant Exam date and time: 09/23/2022 4:29 PM Age: 51 years old Clinical indication: Abnormal findings; Abnormal radiologic finding of the abdomen; Radiologic exam and body structure: CT showed gallstones; Additional info: Transaminitis, cholelithiasis, patient to be npo and will scan this afternoon. CR 11:29am TECHNIQUE: Imaging protocol: Real time ultrasound of the abdomen with image documentation. Limited exam focused on the right upper quadrant. COMPARISON: CT abdomen pelvis wo con [id number] 09/07/2022 11:09 AM FINDINGS: Liver: Enlarged mildly hyperechoic liver measuring 22.1 cm. Gallbladder: Multiple small stones and sludge in the gallbladder. The gallbladder wall is mildly thickened measuring 4 mm. No pericholecystic fluid or ascites. Biliary ducts: CBD 2.6 mm. Pancreas: Obscured by bowel gas. Right kidney: 2.8 cm anechoic cyst in the anterior mid right kidney. Portal venous: Hepatopetal flow in the main portal vein. US/US liver [id number] IMPRESSION: 1. Sludge and small stones in the gallbladder. Mild gallbladder wall thickening could indicate mild acute cholecystitis. 2. Enlarged liver with mild diffuse fatty infiltration.
[2022-09-23] MEDS: acetaminophen 325 mg Tablet 650 MG PO (18:42)
[2022-09-24] VITALS (8 sets, daily range): BP systolic 114–131; BP diastolic 72–85; PULSE 62–72; RESP 16–22; TEMP 36.3–36.9; O2SAT 94–98
[2022-09-24] MEDS: PHENYTOIN 25 MG/ML 250 MG PO ×3 (03:08→18:55)
--- NOTE | 2022-09-24 03:17 | PC.NURSE ---
OSTOMY Colostomy bag has been emptied several times tonight. Has output of soft to liquid stool and alot of gas. Bag fills with gas.
[2022-09-24 05:02] LABS: Basophils # 0.1 10^3/uL (0.0-0.1); Basophils % 0.5 %; Eosinophils # 0.8 10^3/uL (0.0-0.8); Eosinophils % 5.5 %; Hematocrit 36.5 % (42.0-52.0); Hemoglobin 12.3 g/dL (11.7-16.6); Lymphocytes % 19.7 %; Mean Corpuscular HGB Conc 33.7 g/dL (30.0-36.0); Mean Corpuscular Hemoglobin 33.3 pg (28.0-34.0); Mean Corpuscular Volume 98.9 fl (80-94); Mean Platelet Volume 9.6 fL (7.4-10.4); Monocytes # 1.5 10^3/uL (0.2-0.9); Monocytes % 10.1 %; Neutrophils # 9.21 10^3/uL (1.8-7.7); Neutrophils % 60.5 %; Nucleated Red Blood Cells % 0 %; Platelet Count 228 10^3/cmm (130-400); Red Blood Count 3.69 10^6/uL (4.1-5.3); Red Cell Distribution Width 18.4 % (12.1-15.1); White Blood Count 15.2 10^3/uL (4.0-10.0)
[2022-09-24] MEDS: levETIRAcetam 500 mg Tablet 1500 MG PO ×2 (09:26→17:06)
[2022-09-24] MEDS: pantoprazole DR 40 mg Tablet PO ×2 (09:27→17:06)
[2022-09-24] MEDS: apixaban 5 mg Tablet PO ×2 (09:27→21:23)
--- NOTE | 2022-09-24 13:03 | PM.PN ---
Subjective Subjective: No acute events overnight. Patient denies any nausea, vomiting, headache. Seen with mother at bedside. Patient has been working well with physical therapy. Has remained hemodynamically stable and afebrile. Patient is able to ambulate by himself currently. Vitals/I&O/Wt Last Vital Signs Temp 97.4 F L 09/24/22 11:56 Pulse 70 09/24/22 11:56 Resp 16 09/24/22 11:56 BP 131/85 09/24/22 11:56 Pulse Ox 98 09/24/22 11:56 O2 Del Method 09/24/22 11:56 O2 Flow Rate 6 09/15/22 19:00 09/23/22 09/24/22 09/24/22 22:59 06:59 14:59 Intake Total 360 / 840 600 / 1440 120 / 120 Output Total 700 / 700 350 / 1050 Balance -340 / 140 250 / 390 120 / 120 Weight last 48 hrs Weight 118.614 kg Physical Exam Const: COMMON NORMALS: no acute distress, alert and well nourished EXAM LIMITATIONS: behavioral limitations GENERAL APPEARANCE: cooperative, comfortable and well hydrated Resp: COMMON NORMALS: clear to auscultation bilaterally EFFORT & INSPECTION: Yes symmetric chest movement AUSCULTATION: clear to auscultation bilaterally Cardio: COMMON NORMALS: regular rate, regular rhythm, S1 normal heart sound present, S2 normal heart sound present, No gallops present (Cardio), No murmurs present (Cardio), No rub (Cardio) and Peripheral pulses 2+ throughout RATE: regular rate RHYTHM: regular rhythm HEART SOUNDS: S1 normal heart sound present and S2 normal heart sound present PERIPHERAL PULSES: Peripheral pulses 2+ throughout GI: OTHER: Soft nondistended, ostomy in place, Extremity: COMMON NORMALS: no clubbing, cyanosis or edema and no pedal edema Neuro: SENSORIUM/ORIENTATION: Yes alert Urinary Catheter Management: Saenz: Cath Placed During This Visit: yes, but has since been removed by the nurse Reason for Continuing Indwelling Catheter: Other Urinary Catheter Date of Insertion: 09/02/22 Urinary Catheter Time of Insertion: 12:00 Date Urinary Catheter Removed: 09/21/22 Time Urinary Catheter Discontinued: 15:00 Data 09/24/22 04:53 09/22/22 06:02 A&P Assessment and plan (1) Clostridium difficile enterocolitis: Patient admitted on September 01, 2022 with chief complaints of abdominal pain distention CT abdomen upon presentation showing markedly dilated sigmoid colon measuring up to 15 cm with an apparent transition point in the distal sigmoid colon. CT repeated on September 07, 2022 because of increased abdominal distention showed persistent colonic distention from mid transverse colon to rectosigmoid junction, measuring approximately 13.5 cm. Large amount of stool seen in the proximal colon. Overall clinical picture is compatible with that of fulminant C. difficile colitis with toxic megacolon. Completed colonoscopy on 09/08 with diffuse generalized colitis compatible with toxic megacolon. Patient has been on treatment with p.o. vancomycin 500 mg 4 times daily and IV Flagyl 500 mg 3 times a day since 09/02/22. Given no significant improvement with above medical therapy, rectal vancomycin 500 mg every 6 hours as a retention enema was added on 09/08. We will complete extended tapered course of p.o. vancomycin. For total 1 month duration. 125 mg p.o. twice daily vancomycin for next 7 days, and then 125 mg p.o. daily for another 7 days. Was on TPN after placing PICC line on 09/09. Patient was on steroids for possible ischemic colitis which has since been tapered off. Given no significant improvement in overall bowel distention. 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 Given that patient is having multiple bowel movements through colostomy having persistent leukocytosis and mild fever now we will put him back on 125 4 times daily of oral vancomycin. Appreciate surgical recommendations. (2) Toxic megacolon: Resolved. As a result of C. difficile colitis. Treatment as above (3) Leukocytosis: Significant rise in white blood cell count to 48,000, after surgical intervention, likely reactive. Was empirically started on Zosyn has been discontinued. Peripheral blood smear review. Because of persistent leukocytosis and mild low-grade fever now we will increase the dose of vancomycin again to 4 times daily. Check urinalysis. Check liver ultrasound. He did have cholelithiasis on CT abdomen. (4) Hypokalemia: Monitor serum potassium and accordingly corrected. (5) DVT (deep venous thrombosis): Deep venous thrombosis of the left upper extremity, occlusive, involving the distal left brachial veins. Superficial thrombus additionally seen in left basilic vein. This was a site of a previous IV line. Low suspicion for DIC. Was on therapeutic anticoagulation with Lovenox Has changed to Eliquis 5 mg twice daily. (6) Developmental disorder: (7) Generalized epilepsy: No breakthrough seizures currently. 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 Regular diet. Add Ensure with each meal. Eliquis advised DVT prophylaxis Protonix for PUD prophylaxis Plan for the day: Has remained afebrile. Continue with vancomycin 125 mg every 6 hourly. Monitor bowel movements. Liver ultrasound appreciated. Concern for mild cholecystitis though patient does not have any tenderness on examination. We will hold off on antibiotics for now. Discharge plan discussed in detail with patient's mother at bedside. We discussed that patient has improved quite a bit both in his mentation which is back to baseline now, physical activity and diet. Seems patient is back to baseline. Patient's mother does verbalize understanding and is agreeable to the above statement. We discussed possible discharge to home with home health. Mother is agreeable and is asking for a possible hospital bed. Patient is at a high risk of aspiration given his baseline history of generalized epilepsy, developmental disorder and Patrick's paralysis. Patient will need his head of the bed to be elevated more than closely. Regularly and more so during his meals. Case management alerted. Discharge planning: Given prolonged hospitalization and physical deconditioning patient will benefit from SNF placement for short-term for physical rehabilitation. Family agreeable. Case management has been alerted. Patient has been accepted at [facility]. Awaiting authorization. Care discussed in detail with patient's mother at bedside. All the questions were answered. Attestations Medical Necessity Statement*: Requires further hospitalization for management of toxic: Setting of C. difficile colitis, post operative while safe discharge planning is sought. Time Spent in Patient Care: Greater than 35 minutes Coding Level of Care Code Acute Code for [facility] Fwd Diagnoses Clostridium difficile enterocolitis A04.72 Toxic megacolon K59.31 Leukocytosis D72.829 Hypokalemia E87.6 DVT (deep venous thrombosis) I82.409 Developmental disorder F89 Generalized epilepsy G40.309 Pseudomembranous colitis A04.72
[2022-09-24] MEDS: acetaminophen 325 mg Tablet 650 MG PO (17:05)
[2022-09-25] VITALS: BP 123/81; PULSE 70; RESP 20; TEMP 37; O2SAT 96
[2022-09-25 04:00] VITALS: BP 116/80; PULSE 67; RESP 25; TEMP 36.7; O2SAT 97
[2022-09-25] MEDS: PHENYTOIN 25 MG/ML 250 MG PO (04:51)
[2022-09-25 06:00] VITALS: PULSE 70
[2022-09-25 08:00] VITALS: BP 132/69; PULSE 66; RESP 18; TEMP 36.3; O2SAT 98
[2022-09-25] MEDS: pantoprazole DR 40 mg Tablet PO (08:37)
[2022-09-25] MEDS: apixaban 5 mg Tablet PO (08:37)
[2022-09-25] MEDS: levETIRAcetam 500 mg Tablet 1500 MG PO (08:37)
--- NOTE | 2022-09-25 09:26 | P.DS_ITS ---
Discharge Providers Date of Admission: 09/02/22 00:00 Date of Discharge: September 25, 2022 Attending Provider at Admission: Jessica Smith MD Attending Provider at Discharge: Mg Wilson MD Consults: Surgery: Dr. Solomon Primary Care Provider: NIRANJAN Drummond Diagnoses at Discharge Discharge Diagnosis (1) Clostridium difficile enterocolitis: Status: Acute (2) Toxic megacolon: Status: Acute (3) Leukocytosis: Status: Acute (4) Hypokalemia: Status: Acute (5) DVT (deep venous thrombosis): Status: Acute (6) Developmental disorder: Status: Acute (7) Generalized epilepsy: Status: Acute (8) Pseudomembranous colitis: Status: Acute Reason for Visit Reason for Visit: FEVER Brief History: History as per HPI: Initially admitted on 09/01 Jaziel Willis is a 51 year old male past medical history of seizures, hypertriglyceridemia, peripheral vascular disease presented to the hospital today with complaint of abdominal distention that apparently suddenly started yesterday.? It has been worsening ever since.? Patient had an episode of loose stools yesterday.? Denies having constipation in the past or diarrhea.? He is accompanied by his mother.? Patient's mother provides most of the history.? She says she has been having a fever since yesterday which was as high as 103.? He is also been coughing and having some respiratory congestion.? He has not really been bringing up any sputum.? He has never had abdominal distention before.? Denies any abdominal surgeries in the past.? He does have a history of seizures for which he follows with Dr. Forrester and [facility].? Patient is on lacosamide, Keppra, phenytoin.? She does not have a list of his medications today.? Patient states he is in the hospital.? He is a little hard to understand.? Does have a history of developmental disorder. ED course: On arrival ? Arterial Dopplers ruled out blood pressure 137/89, respiratory 15, pulse 86, temperature 99.3, saturating 96% on room air.? X-ray abdomen showed multiple dilated loops of colon measuring up to at least 10 cm perhaps reflecting obstruction ileus or Yuki syndrome or consideration.? CT to further evaluate.? Chest x-ray done which showed markedly dilated loop of bowel in the left abdomen measuring up to 13 cm[address] CT abdomen done which showed markedly dilated loop of sigmoid colon measuring up to nearly 15 cm along with diffuse lesser dilation of the colon duct more proximally with an apparent transition point of narrowing seen in the distal sigmoid colon.? Fluid is seen in the lumen with narrowing of lumen without focal obstructing lesion suggesting the dilation may be secondary to underlying Yuki's syndrome has no mechanical point of obstruction is seen in the area.? Patient was evaluated by general surgery at the bedside.? Surgery service has recommended medical admission, optimization of electrolytes, rectal tube decompression and possible consideration of neostigmine therapy.? Possibility of surgical intervention if no improvement in next 24 hours. Hospital Course Hospital Course Patient was admitted to hospital further evaluation and management. Stool studies on admission were consistent with C. difficile and he was started on treatment accordingly with p.o. vancomycin. 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 CT abdomen upon presentation showing markedly dilated sigmoid colon measuring up to 15 cm with an apparent transition point in the distal sigmoid colon.? CT repeated on September 07, 2022 because of increased abdominal distention showed persistent colonic distention from mid transverse colon to rectosigmoid junction, measuring approximately 13.5 cm.? Large amount of stool seen in the proximal colon. Overall clinical picture is compatible with that of fulminant C. difficile colitis with toxic megacolon. Completed colonoscopy on 09/08 with diffuse generalized colitis compatible with toxic megacolon. Patient's clinical improvement was very slow and gradual even with p.o. and rectal vancomycin along with IV Zosyn. Eventually he was taken to the OR by surgery for exploratory laparotomy, subtotal colectomy and end ileostomy formation. Post OR patient's clinical picture improved. Currently he is able to tolerate oral diet with regular function of colostomy. His hospital stay was complicated by him developing DVT for which he is tolerating Eliquis well. Safe discharge plan were discussed in detail with patient's mother who is the primary caregiver. Plan at first was to transfer patient to SNF for further rehabitation and colostomy care. While level 2 was awaited patient continues to do better with physical therapy and is able to currently ambulate without any assistance by himself. He is able to tolerate oral diet well. He has had persistent leukocytosis but infectious causes have been ruled out. Abdominal ultrasound was repeated which was consistent with the possibility of mild cholecystitis but patient is asymptomatic. As patient has improved drastically and is back to his baseline further discharge plan were discussed in detail with patient's mother and she is agreeable to discharge patient home. Patient would need a hospital bed as he would need his head of the bed to be elevated to more than 30 degrees to prevent aspiration. He has been discharged in hemodynamically stable condition on oral vancomycin taper and oral Augmentin and Levaquin for next 5 days. He is to follow-up with surgery within next 1 week. Physical Exam Const: COMMON NORMALS: no acute distress, alert and well nourished EXAM LIMITATIONS: behavioral limitations GENERAL APPEARANCE: cooperative, comfortable and well hydrated Resp: COMMON NORMALS: clear to auscultation bilaterally EFFORT & INSPECTION: Yes symmetric chest movement AUSCULTATION: clear to auscultation bilaterally Cardio: COMMON NORMALS: regular rate, regular rhythm, S1 normal heart sound present, S2 normal heart sound present, No gallops present (Cardio), No murmurs present (Cardio), No rub (Cardio) and Peripheral pulses 2+ throughout RATE: regular rate RHYTHM: regular rhythm HEART SOUNDS: S1 normal heart sound present and S2 normal heart sound present PERIPHERAL PULSES: Peripheral pulses 2+ throughout GI: OTHER: Soft nondistended, ostomy in place, Extremity: COMMON NORMALS: no clubbing, cyanosis or edema and no pedal edema Neuro: SENSORIUM/ORIENTATION: Yes alert Urinary Catheter Management: Saenz: Cath Placed During This Visit: yes, but has since been removed by the nurse Reason for Continuing Indwelling Catheter: Other Urinary Catheter Date of Insertion: 09/02/22 Urinary Catheter Time of Insertion: 12:00 Date Urinary Catheter Removed: 09/21/22 Time Urinary Catheter Discontinued: 15:00 Discharge Data Studies Completed and Pending Completed Studies During Hospitalization Category Date Time Status CT abdomen pelvis w con* [id number] Stat Cat Scan 09/01/22 22:[address] abdomen pelvis wo con [id number] Routine Cat Scan 09/07/22 10:05 Completed CXRP [XR chest 1V portable [id number]] Stat Exams 09/16/22 07:59 Completed XR KUB portable 59595 Q12H Exams 09/02/22 03:02 Completed XR KUB portable 25288 Q12H Exams 09/02/22 15:02 Completed XR KUB portable 34084 Q12H Exams 09/03/22 03:02 Completed XR KUB portable 48403 Q12H Exams 09/03/22 15:02 Completed XR KUB portable [id number] Q12H Exams 09/04/22 03:02 Completed XR KUB portable 86080 Q8H Exams 09/05/22 22:03 Completed XR KUB portable 05986 Q8H Exams 09/05/22 22:03 Completed XR KUB portable 51189 Q8H Exams 09/06/22 06:03 Completed XR KUB portable 22250 Q8H Exams 09/06/22 14:03 Completed XR KUB portable [id number] Routine Exams 09/07/22 05:00 Completed XR KUB portable 96368 Routine Exams 09/13/22 04:01 Completed XR KUB portable 44707 Routine Exams 09/14/22 05:09 Completed XR abdomen min 2V 50945 Stat Exams 09/01/22 20:33 Completed XR chest 1V portable [id number] Routine Exams 09/09/22 14:34 Completed XR chest 1V portable [id number] Stat Exams 09/02/22 16:31 Completed XR chest 2V* [id number] Stat Exams 09/01/22 20:33 Completed Pathology: Surgical [PTH] Routine Pth 09/08/22 17:42 Completed Pathology: Surgical [PTH] Routine Pth 09/15/22 18:24 [place] [id number] Routine Ultrasound 09/08/22 16:37 Completed US arterial duplex lower extremity bilat [CV arterial Ultrasound 09/20/22 11:44 [place] [id number]] Routine US liver [id number] Routine Ultrasound 09/23/22 11:23 Completed Pending at discharge Category Date Time Status Sputum Culture and Gram Stain Stat Lab 09/02/22 03:06 Uncollected Urinalysis Routine Lab 09/23/22 11:15 Uncollected Radiology Impressions Abdomen X-Ray 09/01/22 20:33 IMPRESSION: Multiple dilated loops of colon measuring up to at least 10 cm, perhaps reflecting obstruction, ileus or Yuki's syndrome are also consideration, CT could further evaluate this. Abdomen/Pelvis CT 09/07/22 10:05 IMPRESSION: No significant change in predominantly distal colonic distension compatible with an ileus. COMMENTS: Consistent with the [employer]'s Incidental Findings Committee white paper (J Am Lily Radiol 2018): Any incidental renal lesion less than 1 cm or classified as too small to characterize, or any incidental cystic renal lesion characterized as simple-appearing, is likely benign. No follow-up imaging is recommended for these lesions per consensus recommendations based on imaging criteria. Venous Duplex 09/08/22 16:37 IMPRESSION: 1. Occlusive DVT within the distal left brachial veins. 2. Occlusive thrombus within the superficial left basilic vein extending proximally near its junction with the axillary vein throughout its length through the wrist. There is also occlusive thrombus within the superficial left basilic vein at the level of the distal humerus. The left ulnar radial veins are also occluded. KUB X-Ray 09/14/22 05:09 IMPRESSION: Nasogastric tube in the proximal stomach. Chest X-Ray 09/16/22 07:59 IMPRESSION: Feeding tube proximal port is within the distal esophagus, advancement is recommended. Duplex Scan Lower Extremity Artery 09/20/22 11:44 IMPRESSION: No stenosis or occlusion. Liver Ultrasound 09/23/22 11:23 IMPRESSION: 1. Sludge and small stones in the gallbladder. Mild gallbladder wall thickening could indicate mild acute cholecystitis. 2. Enlarged liver with mild diffuse fatty infiltration. Laboratory Results WBC 15.2 10^3/uL (4.0-10.0) H 09/24/22 04:53 Corrected WBC Cancelled 09/06/22 04:12 RBC 3.69 10^6/uL (4.1-5.3) L 09/24/22 04:53 Hgb 12.3 g/dL (11.7-16.6) 09/24/22 04:53 Hct 36.5 % (42.0-52.0) L 09/24/22 04:53 MCV 98.9 fl (80-94) H 09/24/22 04:53 MCH 33.3 pg (28.0-34.0) 09/24/22 04:53 MCHC 33.7 g/dL (30.0-36.0) 09/24/22 04:53 RDW 18.4 % (12.1-15.1) H 09/24/22 04:53 Plt Count 228 10^3/cmm (130-400) 09/24/22 04:53 MPV 9.6 fL (7.4-10.4) 09/24/22 04:53 Gran % Cancelled 09/06/22 04:12 Neut % (Auto) 60.5 % 09/24/22 04:53 Lymph % (Auto) 19.7 % 09/24/22 04:53 [place] % (Auto) 10.1 % 09/24/22 04:53 Eos % (Auto) 5.5 % 09/24/22 04:53 Baso % (Auto) 0.5 % 09/24/22 04:53 Neut # (Auto) 9.21 10^3/uL (1.8-7.7) H 09/24/22 04:53 Lymph # (Auto) 3.0 10^3/uL (0.8-4.8) 09/24/22 04:53 [place] # (Auto) 1.5 10^3/uL (0.2-0.9) H 09/24/22 04:53 Eos # (Auto) 0.8 10^3/uL (0.0-0.8) 09/24/22 04:53 Baso # (Auto) 0.1 10^3/uL (0.0-0.1) 09/24/22 04:53 Absolute Gran (auto) Cancelled 09/06/22 04:12 Nucleated RBC % (auto) 0 % 09/24/22 04:53 Nucleated RBCs # 0.0 /100WBC 09/24/22 04:53 APTT 29.7 SECONDS (23.9-36.7) 09/09/22 13:00 Sodium 133 mmol/L (136-145) L 09/22/22 06:02 Potassium 4.2 mmol/L (3.5-5.1) 09/22/22 06:02 Chloride 100 mmol/L (98-107) 09/22/22 06:02 Carbon Dioxide 23 mmol/L (22-29) 09/22/22 06:02 Anion Gap 14.2 (5-19) 09/22/22 06:02 BUN 12 mg/dL (6-20) 09/22/22 06:02 Creatinine 0.4 mg/dL (0.7-1.2) L 09/22/22 06:02 GFR Calculation 227.7 mL/min (90-130) H 09/22/22 06:02 Glucose 104 mg/dL (65-115) 09/22/22 06:02 POC Glucose 105 mg/dL (70-110) 09/04/22 07:27 Calculated Osmolality 276 mOsm/kg (285-295) L 09/22/22 06:02 Lactic Acid 0.9 mmol/L (0.5-2.2) 09/03/22 01:42 Lactate 1.4 mmol/L (0.5-2.2) 09/12/22 03:43 Calcium 8.6 mg/dL (8.5-10.5) 09/22/22 06:02 Phosphorus 2.8 mg/dL (2.5-4.5) 09/14/22 05:00 Magnesium 2.5 mg/dL (1.7-2.3) H 09/14/22 05:00 Total Bilirubin 0.9 mg/dL (0.15-1.2) 09/22/22 06:02 AST 121 U/L (0-40) H 09/22/22 06:02 ALT 131 U/L (0-41) H 09/22/22 06:02 Alkaline Phosphatase 113 U/L (40-130) 09/22/22 06:02 NT-Pro-B Natriuret Pep 119 pg/mL (0-125) 09/10/22 03:25 Total Protein 6.3 g/dL (6.6-8.7) L 09/22/22 06:02 Albumin 3.4 g/dL (3.5-5.2) L 09/22/22 06:02 Globulin 2.9 g/dL (1.3-4.6) 09/22/22 06:02 Procalcitonin 0.13 ng/mL (0-0.5) 09/01/22 21:15 TSH 1.44 uIU/mL (0.27-4.20) 09/01/22 21:15 Urine Color Cancelled 09/02/22 20:30 Urine Appearance Cancelled 09/02/22 20:30 Urine pH Cancelled 09/02/22 20:30 Ur Specific [place] Cancelled 09/02/22 20:30 Urine Protein Cancelled 09/02/22 20:30 Urine Glucose (UA) Cancelled 09/02/22 20:30 Urine Ketones Cancelled 09/02/22 20:30 Urine Blood Cancelled 09/02/22 20:30 Urine Nitrate Cancelled 09/02/22 20:30 Urine Bilirubin Cancelled 09/02/22 20:30 Prot Sulfosalicylic Acd Cancelled 09/02/22 20:30 Urine Urobilinogen Cancelled 09/02/22 20:30 Ur Leukocyte Esterase Cancelled 09/02/22 20:30 Urine RBC 5-10 /hpf (0-2) H 09/02/22 12:05 Urine WBC None /hpf (0-5) 09/02/22 12:05 Ur Squamous Epith Cells None /hpf (0-5) 09/02/22 12:05 Ur Transition Epith Cell 0-4 /hpf 09/01/22 20:30 Amorphous Sediment Not Reportable 09/02/22 12:05 Urine Bacteria None /hpf (NONE) 09/02/22 12:05 Hyaline Casts 0-4 /lpf H 09/01/22 20:30 Fine Granular Casts 5-10 /lpf H 09/01/22 20:30 Urine Mucus 2+ /hpf 09/02/22 12:05 Influenza Type A Ag negative (Negative) 09/01/22 20:26 Influenza Type B Ag negative (Negative) 09/01/22 20:26 SARS-CoV-2 Ag (Rapid) negative (Negative) 09/01/22 20:26 Blood Type O Positive 09/15/22 20:45 Rho(D) Type Positive 09/15/22 20:45 Antibody Screen Negative 09/15/22 20:45 Vitals Last Vital Signs Temp 97.3 F L 09/25/22 08:00 Pulse 66 09/25/22 08:00 Resp 18 09/25/22 08:00 BP 132/69 09/25/22 08:00 Pulse Ox 98 09/25/22 08:00 O2 Del Method 09/25/22 08:00 O2 Flow Rate 6 09/15/22 19:00 Discharge Plan Discharge Patient Disposition: Home Health Service Condition: Stable Prescriptions: New Eliquis 5 mg Tablet 5 mg PO BID@0900,2100 90 Days Qty: 180 0RF Augmentin 500-125 mg tablet 1 tab PO Q12H Qty: 10 0RF levofloxacin 500 mg tablet 500 mg PO Q24H 5 Days Qty: 5 0RF vancomycin 125 mg capsule 125 mg PO DIRECTED Qty: 75 0RF Rx Instructions: take 125 mg 4 times per day for 10 days; 2 times per day for 7 days; once daily for 7 days; once every 2-3 days for 4 weeks Continued (DME) Compression hose 30/40 See Rx Instructions .Route .MEDSUPPLY Qty: 1 2RF Rx Instructions: Measure to fit A6531 (DME) Diabetic Shoes with 3 pairs of inserts See Rx Instructions .ROUTE .MEDSUPPLY Qty: 1 0RF Rx Instructions: As directed by HOME lacosamide [Vimpat] 200 mg tablet 200 mg PO BID 30 Days Qty: 60 5RF phenytoin 50 mg tablet,chewable See Rx Instructions .ROUTE .COMPLEX Qty: 270 5RF Dose Instruction: CHEW 4 TABLETS BY MOUTH EVERY 8 HOURS Rx Instructions: CHEW 5 TABLETS (250MG) BY MOUTH EVERY 8 HOURS (DME) Compression hose 18/30 See Rx Instructions Rx Instructions: Measure for size A6530 trazodone 100 mg tablet 100 mg PO BEDTIME levetiracetam 1,000 mg tablet 1,500 mg PO BID Rx Instructions: *TAKE IN MORNING AND EVENING* lacosamide 50 mg tablet 50 mg PO BID Qty: 180 0RF Rx Instructions: total 250mg BID Discharge Orders: Discharge Order (Routine); Ordered 09/25/22 Ordered By: Mg Wilson Other Ambulatory Orders: DME: Hospital Bed (Order) Location: None Selected Ordered By: Mg Wilson Referrals: [facility] [place] [facility] [place]) [Outside] Candi Latif FNP-C [Primary Care Provider] - 09/28/22 1:00 pm Harman Solomon DO [Physician] - 7-10 days Patient Instructions: Amoxicillin/Clavulanate Potassium (By mouth) (Augmentin, Augmentin..., Probiotic (By mouth) (Acidophilus Probiotic Blend, Culturelle,..., Apixaban (By mouth) (Eliquis), C. Diff (Clostridioides Difficile) Infection (DC), Megacolon (DC), Colitis (ED), GI Discharge Instructions, Opioid Safety Activity Restrictions/Additional Instructions: Continue taking oral vancomycin taper as directed. Take Augmentin and Levaquin to the antibiotic for next 5 days. Please follow-up with surgery within next 1 week. Colostomy care Discharge Attestations Time Spent in Discharge Care*: greater than 30 min Specific Discharge Activities: educating patient, discussing with pcp/other providers, discussing with correctional casework specialist/social workers/dc planners, documenting/other paperwork and evaluating patient/reviewing data Status at Discharge: Cognitive status at discharge: moderately impaired cognition , Behavioral status at discharge: cooperative , Quality Metrics Clinical Quality Measures [ Venous Thromboembolism { Contraindication to Overlap Therapy: None; Overlap threrpy ordered; VTE Discharge Education: Education about anticoagulant therapy/Care Notes given; Deep Vein Thrombosis/Pulmonary Embolism Present on Admission: No; Contraindication to Pharm VTE Prophylaxis: None; Pharmacological prophylaxis given;}] Coding Level of Care Code Acute Chg FW DC note Diagnoses Clostridium difficile enterocolitis A04.72 Toxic megacolon K59.31 Leukocytosis D72.829 Hypokalemia E87.6 DVT (deep venous thrombosis) I82.409 Developmental disorder F89 Generalized epilepsy G40.309 Pseudomembranous colitis A04.72
--- NOTE | 2022-09-25 09:53 | PC.SOCIAL ---
IMM Updated Updated pt's mom on IMM. No questions voiced. Provided pt a copy. Initialed, dated, & timed copy in chart.
== END 2022-09-25 13:56 | disposition home health service (06) | DRG 329 ==
LOC: ER 09-02 00:22 → MEDSURG 09-02 01:08 → ICU 09-03 20:35 → CSU 09-14 23:10 → ICU 09-15 17:16 → MEDSURG 09-17 20:57
PROVIDERS: Family Medicine; Internal Medicine; Nurse Practitioner Family; Student in an Organized Health Care Education/Training Program; Surgery; Admitting Provider Internal Medicine; Emergency Provider Emergency Medicine; PCP Nurse Practitioner; Visit Provider Student in an Organized Health Care Education/Training Program
PROC: 0DJD8ZZ Inspection of Lower Intestinal Tract, Via Natural or Artificial Opening Endoscopic (ICD-10-PCS; CPT 45378; principal; 2022-09-08 16:30)
PROC: 0D1B0Z4 Bypass Ileum to Cutaneous, Open Approach (ICD-10-PCS; CPT 49000; principal; 2022-09-15 15:00)
PROC: 0D1B0Z4 Bypass Ileum to Cutaneous, Open Approach (ICD-10-PCS; 2022-09-15 15:00)
DX: K59.81 Ogilvie syndrome (principal); G93.41 Metabolic encephalopathy; A04.72 Enterocolitis due to Clostridium difficile, not specified as recurrent; I82.622 Acute embolism and thrombosis of deep veins of left upper extremity; E87.6 Hypokalemia; F88 Other disorders of psychological development; G40.409 Other generalized epilepsy and epileptic syndromes, not intractable, without status epilepticus; E78.1 Pure hyperglyceridemia; I73.9 Peripheral vascular disease, unspecified; Z79.891 Long term (current) use of opiate analgesic; I10 Essential (primary) hypertension; E66.01 Morbid (severe) obesity due to excess calories; Z68.32 Body mass index [BMI] 32.0-32.9, adult; K80.20 Calculus of gallbladder without cholecystitis without obstruction; Z75.1 Person awaiting admission to adequate facility elsewhere
CPT/HCPCS: 12345; 36415; 36416; 36569; 36592; 45380; 51702; 71045; 71046; 74018; 74019; 74176; 74177; 76705; 80048; 80053; 81001; 81003; 82962; 83605; 83735; 83880; 84100; 84145; 84443; 85014; 85018; 85025; 85730; 86850; 86900; 87040; 87077; 87086; 87186; 87426; 87493; 87506; 87804; 88305; 88309; 93925; 93971; 94664; 96365; 96367; 96372; 96375; 97110; 97116; 97161; 97530; 99285; A4222; A4570; C1751; C9113; C9254; J0694; J1165; J1170; J1630; J1644; J1650; J1885; J1953; J2060; J2270; J2370; J2405; J2543; J2704; J2920; J3010; J3370; J3480; J3486; J3490; J7030; P9047

== ENCOUNTER → 2022-10-06 15:52 | Outpatient (BNVA) | payer MEDICARE, MEDICAID, SELFPAY | PROVIDERS: PCP Nurse Practitioner; Visit Provider Surgery | DX: Z98.890 Other specified postprocedural states (principal); Z90.49 Acquired absence of other specified parts of digestive tract | CPT/HCPCS: 99024 ==

== ENCOUNTER → 2022-10-16 15:30 | Outpatient (BNVA) | payer MEDICARE, MEDICAID, SELFPAY | PROVIDERS: PCP Nurse Practitioner; Visit Provider Surgery | DX: Z93.2 Ileostomy status (principal) | CPT/HCPCS: 99024 ==

== ENCOUNTER 2022-10-26 13:42 | Emergency (ER) | payer MEDICARE, MEDICAID, SELFPAY ==
[2022-10-26 14:00] VITALS: BP 142/81; PULSE 83; RESP 22; TEMP 36.8; O2SAT 98; BMI 32.2
--- NOTE | 2022-10-26 15:09 | ED_ITS ---
HPI - Recheck/Abnormal Lab/Rx General: Chief Complaint: Recheck/Abnormal Lab/Rx Stated Complaint: Yellow skin Dr. Latif sent Time Seen by Provider: 10/26/22 15:09 Source: patient Mode of arrival: ambulatory History of Present Illness: 51-year-old male who presents to the emergency room directed here by nurse practitioner who usually sees him. The home health care nurse evidently went to the home thought he appeared jaundiced contacted them they sent him to the emergency room he denies any abdominal pain. He recently had surgery for colostomy family stating he had a bad gallbladder. Reviewing chart he had a ultrasound of his gallbladder on September 23 that showed sludge some early stones mild gallbladder wall thickening but no acute cholecystitis. Associated symptoms: none Review of Systems Const: Denies: fever(s), chills, body aches, change in appetite, fatigue or malaise ENMT: Denies: throat pain, ear or mastoid pain, nasal discharge or nasal congestion Card: Denies: chest pain, edema, dyspnea on exertion or orthopnea Resp: Denies: dyspnea, productive cough or non-productive cough GI: Denies: abdominal pain, nausea, vomiting, hematemesis, coffee ground emesis, diarrhea, constipation, bloating, hematochezia or melena : Denies: flank pain, dysuria, urinary frequency or urinary urgency Skin/Breast: Denies: rash or pruritus PFSH ED PFSH: Medical History Cellulitis of oral soft tissues Developmental disorder Endotracheally intubated Essential hypertension Frontal lobe epilepsy Generalized epilepsy Hypertension Intellectual disability Leukocytosis Morbid obesity Peripheral vascular disease Seizure Status epilepticus Venous stasis dermatitis Surgical History History of total colectomy August 2022 S/P vein stripping Family History Father Cancer Lung cancer Mother CAD (coronary artery disease) Other Diabetes Heart disease Hypertension Denies family history of Stroke Social History Smoking and tobacco status: never smoked Second hand smoke exposure: No Smoking risk assessment/counseling performed?: No Alcohol intake: never Desire information about alcohol rehabilitation?: No Counseling given: No Desire information about substance/drug rehabilitation?: No Counseling given: No Caregiver/support person: Yes Lives independently: No Household members: family Marital status: Single service: No Current occupational status: disabled Current gender identity: Male Physical Exam Const: COMMON NORMALS: no acute distress GENERAL APPEARANCE: cooperative and comfortable ORIENTATION/CONSCIOUSNESS: Yes awake, Yes oriented to person, Yes oriented to place and Yes oriented to time HENMT: COMMON NORMALS: normocephalic, atraumatic and hearing grossly normal bilaterally HEAD & SCALP: normocephalic and atraumatic Resp: COMMON NORMALS: normal respiratory effort, No retractions, No use of accessory muscles and clear to auscultation bilaterally AUSCULTATION: clear to auscultation bilaterally Cardio: COMMON NORMALS: regular rate, regular rhythm and No murmurs present (Cardio) RATE: regular rate RHYTHM: regular rhythm GI: COMMON NORMALS: Soft to palpation and No hepatosplenomegaly present AUSCULTATION: Yes normoactive bowel sounds PALPATION: Yes Soft to palpation, No Tenderness to palpation present (GI), No Guarding due to palpation present (GI) and Yes No hepatosplenomegaly present Extremity: COMMON NORMALS: normal to inspection, capillary refill normal, no clubbing, cyanosis or edema, no calf tenderness and no pedal edema Neuro: SENSORIUM/ORIENTATION: Yes oriented to person, Yes oriented to place and Yes oriented to time Skin: COMMON NORMALS: no rashes or lesions noted GENERAL SKIN EXAM: no rashes or lesions noted Course Vital Signs: Vital signs: Vital Signs Temperature 98.2 F 10/26/22 14:00 Pulse Rate 83 10/26/22 14:00 Respiratory Rate 22 H 10/26/22 14:00 Blood Pressure 142/81 10/26/22 14:00 Pulse Oximetry 98 10/26/22 14:00 Oxygen Delivery Me thod 10/26/22 14:00 MDM - Recheck/Abnormal Lab/Rx Medical Decision Making Labs reviewed no evidence of hyperbilirubinemia on exam he is normally is not having symptoms we will discharge home at this time he can follow-up with his primary care doctor. Medical Records I reviewed the patient's medical records. Lab Data I reviewed the patient's lab results. 10/26/22 16:25 10/26/22 16:25 Laboratory Results WBC Cancelled 10/26/22 16:25 Corrected WBC Cancelled 10/26/22 16:25 RBC Cancelled 10/26/22 16:25 Hgb Cancelled 10/26/22 16:25 Hct Cancelled 10/26/22 16:25 MCV Cancelled 10/26/22 16:25 MCH Cancelled 10/26/22 16:25 MCHC Cancelled 10/26/22 16:25 RDW Cancelled 10/26/22 16:25 Plt Count Cancelled 10/26/22 16:25 MPV Cancelled 10/26/22 16:25 Gran % Cancelled 10/26/22 16:25 Neut % (Auto) Cancelled 10/26/22 16:25 Lymph % (Auto) Cancelled 10/26/22 16:25 [place] % (Auto) Cancelled 10/26/22 16:25 Eos % (Auto) Cancelled 10/26/22 16:25 Baso % (Auto) Cancelled 10/26/22 16:25 Neut # (Auto) Cancelled 10/26/22 16:25 Lymph # (Auto) Cancelled 10/26/22 16:25 [place] # (Auto) Cancelled 10/26/22 16:25 Eos # (Auto) Cancelled 10/26/22 16:25 Baso # (Auto) Cancelled 10/26/22 16:25 Absolute Gran (auto) Cancelled 10/26/22 16:25 Nucleated RBC % (auto) Cancelled 10/26/22 16:25 Nucleated RBCs # Cancelled 10/26/22 16:25 Sodium 138 mmol/L (136-145) 10/26/22 16:25 Potassium 4.3 mmol/L (3.5-5.1) 10/26/22 16:25 Chloride 99 mmol/L (98-107) 10/26/22 16:25 Carbon Dioxide 27 mmol/L (22-29) 10/26/22 16:25 Anion Gap 16.3 (5-19) 10/26/22 16:25 BUN 9 mg/dL (6-20) 10/26/22 16:25 Creatinine 0.6 mg/dL (0.7-1.2) L 10/26/22 16:25 GFR Calculation 142.6 mL/min (90-130) H 10/26/22 16:25 Glucose 87 mg/dL (65-115) 10/26/22 16:25 Calculated Osmolality 284 mOsm/kg (285-295) L 10/26/22 16:25 Calcium 9.8 mg/dL (8.5-10.5) 10/26/22 16:25 Total Bilirubin 0.6 mg/dL (0.15-1.2) 10/26/22 16:25 AST 25 U/L (0-40) 10/26/22 16:25 ALT 24 U/L (0-41) 10/26/22 16:25 Alkaline Phosphatase 185 U/L (40-130) H 10/26/22 16:25 Total Protein 7.7 g/dL (6.6-8.7) 10/26/22 16:25 Albumin 4.3 g/dL (3.5-5.2) 10/26/22 16:25 Globulin 3.4 g/dL (1.3-4.6) 10/26/22 16:25 Lipase 38 U/L (13-60) 10/26/22 16:25 Urine Color Yellow (Yellow) 10/26/22 16:43 Urine Appearance Hazy (CLEAR) A 10/26/22 16:43 Urine pH 7 (5-7) 10/26/22 16:43 Ur Specific Bath 1.010 (1.005-1.030) 10/26/22 16:43 Urine Protein Neg (Negative) 10/26/22 16:43 Urine Glucose (UA) Norm (Normal) 10/26/22 16:43 Urine Ketones Negative (Negative) 10/26/22 16:43 Urine Blood Neg (Negative) 10/26/22 16:43 Urine Nitrate Negative (Negative) 10/26/22 16:43 Urine Bilirubin Neg (Negative) 10/26/22 16:43 Urine Urobilinogen Neg mg/dL (Negative) 10/26/22 16:43 Ur Leukocyte Esterase Negative (Negative) 10/26/22 16:43 Discharge Plan Discharge Patient Disposition: Home Clinical Impression: Ileostomy in place, Intellectual disability Condition: Stable Prescriptions: No Action (DME) Compression hose 30/40 See Rx Instructions .Route .MEDSUPPLY Qty: 1 2RF Rx Instructions: Measure to fit A6531 (DME) Diabetic Shoes with 3 pairs of inserts See Rx Instructions .ROUTE .MEDSUPPLY Qty: 1 0RF Rx Instructions: As directed by HOME trazodone 100 mg tablet 100 mg PO BEDTIME Qty: 90 1RF lacosamide [Vimpat] 200 mg tablet 200 mg PO BID 30 Days Qty: 60 5RF phenytoin 50 mg tablet,chewable See Rx Instructions .ROUTE .COMPLEX Qty: 270 5RF Dose Instruction: CHEW 4 TABLETS BY MOUTH EVERY 8 HOURS Rx Instructions: CHEW 5 TABLETS (250MG) BY MOUTH EVERY 8 HOURS benzoin compound Tincture 1 applic topical DAILY 30 Days Qty: 60 1RF (DME) Compression hose See Rx Instructions Rx Instructions: Measure for size A6530 levetiracetam 1,000 mg tablet 1,500 mg PO BID Rx Instructions: *TAKE IN MORNING AND EVENING* Eliquis 5 mg Tablet 5 mg PO BID@0900,2100 90 Days Qty: 180 0RF Discharge Orders: Discharge ED (Routine); Ordered 10/26/22 Ordered By: Lemuel Clifford Referrals: Candi Latif, [employer] SYSTEMS ADMINISTRATOR-C [Primary Care Provider] - Discharge Diet: Usual diet Discharge Activity: Increase activity as tolerated Patient Instructions: Opioid Safety, Pain Management Activity Restrictions/Additional Instructions: You are seen today for question of jaundice. Your total bilirubin and your liver functions were normal. Follow-up with your primary care doctor. Coding Level of Care Code ED Commanding Officer Garage for Antonio Avila
--- NOTE | 2022-10-26 15:24 | ECG_ITS ---
[facility] Test Date: 2022-10-26 Pat Name: Jaziel Willis Department: Room: Gender: Male Information Assistant: : 1970 Requested By: Lemeul Klein Order Number: [id number] Tucker MD: Mandeep Chen M.D. Measurements Intervals Bronson Rate: 76 P: 38 NM: 160 QRS: 60 QRSD: 149 T: 50 QT: 406 QTc: 459 Interpretive Statements SINUS RHYTHM RIGHT BUNDLE BRANCH BLOCK [120+ ms QRS DURATION, UPRIGHT V1, 40+ ms S IN I/aVL/V4/V5/V6] Compared to ECG 08/19/2022 17:42:51 Indeterminate axis no longer present Electronically Signed On 10-26-2022 17:29:14 TRIM CREW SUPERVISOR by Mandeep Chen M.D. [id number]
[2022-10-26 16:49] LABS: Alanine Aminotransferase 24 U/L (0-41); Albumin Level 4.3 g/dL (3.5-5.2); Alkaline Phosphatase 185 U/L (40-130); Anion Gap 16.3 (5-19); Aspartate Amino Transferase 25 U/L (0-40); Blood Urea Nitrogen 9 mg/dL (6-20); Calcium 9.8 mg/dL (8.5-10.5); Carbon Dioxide 27 mmol/L (22-29); Chloride 99 mmol/L (98-107); Globulin 3.4 g/dL (1.3-4.6); Glomerular Filtration Rate 142.6 mL/min (90-130); Glucose 87 mg/dL (65-115); Lipase 38 U/L (13-60); Osmolality Calculated 284 mOsm/kg (285-295); Potassium 4.3 mmol/L (3.5-5.1); Sodium 138 mmol/L (136-145); Total Bilirubin 0.6 mg/dL (0.15-1.2); Total Protein 7.7 g/dL (6.6-8.7)
[2022-10-26 16:52] LABS: Add Urine Microscopic? NO; Charge for UA Resulting for Rev
[2022-10-26 16:53] LABS: Bilirubin Urine Neg (Negative); Blood Urine Neg (Negative); Glucose Urine UA Norm (Normal); Ketones Urine Negative (Negative); Leukocyte Esterase Urine Negative (Negative); Nitrate Urine Negative (Negative); Protein Urine Neg (Negative); Urine Appearance Hazy (CLEAR); Urine Color Yellow (Yellow); Urobilinogen Urine Neg (Negative); pH Urine 7 (5-7)
== END 2022-10-26 17:27 | disposition home or self-care (01) ==
PROVIDERS: Emergency Provider Family Medicine; PCP Nurse Practitioner
DX: R17 Unspecified jaundice (principal); Z93.2 Ileostomy status; F79 Unspecified intellectual disabilities
CPT/HCPCS: 80053; 81003; 83690; 85025; 93005; 99284

== ENCOUNTER → 2022-11-09 14:08 | Outpatient (BNVA) | payer MEDICARE, MEDICAID, SELFPAY | PROVIDERS: PCP Nurse Practitioner; Visit Provider Nurse Practitioner | DX: M25.561 Pain in right knee (principal) | CPT/HCPCS: 73562 ==

== ENCOUNTER → 2022-11-11 12:35 | Outpatient (BNVA) | payer MEDICARE, MEDICAID, SELFPAY | PROVIDERS: PCP Nurse Practitioner; Visit Provider Surgery | DX: K80.20 Calculus of gallbladder without cholecystitis without obstruction (principal) | CPT/HCPCS: 99213 ==

== ENCOUNTER 2022-12-07 06:51 | Day surgery (SDC) | payer MEDICARE, MEDICAID, SELFPAY ==
[2022-12-04 13:56] VITALS: BMI 23.2
[2022-12-07] VITALS (8 sets, daily range): BP systolic 144–180; BP diastolic 77–94; PULSE 60–65; RESP 12–18; TEMP 36.2–36.7; O2SAT 99–100
--- NOTE | 2022-12-07 07:32 | ANES.PREANE2 ---
Pre-Anesthetic Assessment Height/Weight: Height 1.93 m Weight 86.636 kg Temp Pulse Resp BP Pulse Ox O2 Del Method 97.2 F L 65 18 151/77 99 12/07/22 07:12 12/07/22 07:12 12/07/22 07:12 12/07/22 07:12 12/07/22 07:12 12/07/22 07:17 Preop Diagnosis: Symptomatic cholelithiasis Operation Date: 12/07/22 08:35 Proposed Procedures p ap annmarie [id number](Not Applicable) - Harman Solomon DO Familial anesthetic complications: None Was Beta Maria L taken within 24 hours: N/A Was Clonidine taken within 24 hours: N/A Last intake: Intake Last Liquid Date 12/06/22 Last Liquid Time 23:00 Last Solid Date 12/06/22 Last Solid Time 23:00 Social No alcohol and No tobacco Exam alert, clear to auscultation bilaterally and regular rate & rhythm Airway Mallampati: Class III Dentition: other (poor dentition) CV/HEM Deep Vein Thrombosis and Hypertension GI ileostomy for toxic megacolon Neuropsych Seizure Anesthetic Plan ASA status: 3 Anesthesia: General Risk of > 500 ml blood loss (7ml/kg in children): No Medications/Allergies Home Medications Medication Instructions Recorded Confirmed Last Taken Type Compression hose #1 ea 09/21/20 11/11/22 Unknown Rx Compression hose 07/13/21 11/11/22 Unknown History Diabetic Shoes with 3 pairs of #1 ea 03/23/22 11/11/22 Unknown Rx inserts lacosamide 200 mg tablet (Vimpat) 200 mg PO BID 1 month #60 tabs 06/09/22 12/07/22 12/06/22 Rx apixaban 5 mg tablet (Eliquis) 5 mg PO BID@0900,2100 90 days #180 09/25/22 12/07/22 12/05/22 Rx tabs trazodone 100 mg tablet 100 mg PO BEDTIME #90 tabs 10/08/22 12/07/22 12/06/22 Rx benzoin compound 1 applic topical DAILY 30 days #60 10/16/22 12/07/22 12/06/22 Rx mL levetiracetam 1,000 mg tablet See Rx Instructions .Route .COMPLEX 12/04/22 12/07/22 12/07/22 History (Keppra) phenytoin 50 mg chewable tablet See Rx Instructions .Route .COMPLEX 12/04/22 12/07/22 12/07/22 History (Dilantin Infatabs) Allergies Allergy/AdvReac Type Severity Reaction Status Date / Time No Known Allergies Allergy Verified 12/07/22 07:06 [facility] Anesthesia Medical History Cellulitis of oral soft tissues Developmental disorder Endotracheally intubated Essential hypertension Frontal lobe epilepsy Generalized epilepsy Hypertension Intellectual disability Leukocytosis Morbid obesity Peripheral vascular disease Seizure Status epilepticus Venous stasis dermatitis Surgical History History of total colectomy August 2022 S/P vein stripping Family History Father Cancer Lung cancer Mother CAD (coronary artery disease) Other Diabetes Heart disease Hypertension Denies family history of Stroke Social History Smoking and tobacco status: never smoked Second hand smoke exposure: No Smoking risk assessment/counseling performed?: No Alcohol intake: never Desire information about alcohol rehabilitation?: No Counseling given: No Desire information about substance/drug rehabilitation?: No Counseling given: No Caregiver/support person: Yes Lives independently: No Household members: family Marital status: Single service: No Current occupational status: disabled Current gender identity: Male Data Anesthesia Cardiac Studies: Echocardiogram 08/20/22
[2022-12-07] MEDS: sodium chloride 0.9% 1,000 ML 30 ML IV (07:51)
--- NOTE | 2022-12-07 07:54 | W.PM.OPSUD ---
Surgery/Procedure H&P Update DATE OF PROCEDURE: December 07, 2022 DATE H&P PERFORMED: 11/11/22 H&P UPDATE INFORMATION: I have reviewed H&P completed within last 30 days, I have examined patient prior to procedure and No changes to prior documentation PREOP DIAGNOSIS: Symptomatic cholelithiasis PLANNED PROCEDURE: Operation Date: 12/07/22 08:35 Proposed Procedures p ap annmarie [id number](Not Applicable) - Harman Solomon DO
[2022-12-07 08:11] LABS: Basophils # 0.1 10^3/uL (0.0-0.1); Basophils % 0.6 %; Eosinophils # 0.5 10^3/uL (0.0-0.8); Hematocrit 42.6 % (42.0-52.0); Lymphocytes # 2.1 10^3/uL (0.8-4.8); Lymphocytes % 25.7 %; Mean Corpuscular HGB Conc 32.9 g/dL (30.0-36.0); Mean Corpuscular Hemoglobin 31.6 pg (28.0-34.0); Mean Corpuscular Volume 96.2 fl (80-94); Mean Platelet Volume 9.4 fL (7.4-10.4); Monocytes % 11.8 %; Neutrophils # 4.44 10^3/uL (1.8-7.7); Neutrophils % 55.3 %; Nucleated Red Blood Cells % 0 %; Platelet Count 161 10^3/cmm (130-400); Red Blood Count 4.43 10^6/uL (4.1-5.3); Red Cell Distribution Width 14.4 % (12.1-15.1)
[2022-12-07 08:34] LABS: Anion Gap 15.3 (5-19); Blood Urea Nitrogen 13 mg/dL (6-20); Calcium 8.9 mg/dL (8.5-10.5); Carbon Dioxide 24 mmol/L (22-29); Chloride 105 mmol/L (98-107); Glomerular Filtration Rate 175.3 mL/min (90-130); Glucose 86 mg/dL (65-115); Osmolality Calculated 289 mOsm/kg (285-295); Potassium 4.3 mmol/L (3.5-5.1); Sodium 140 mmol/L (136-145)
[2022-12-07] MEDS: ceFAZolin 2,000 MG in sodium chloride 0.9% (plus) 50 ML 100 MG IV (08:38)
[2022-12-07] MEDS: lidocaine-epi 2% 20 mL INJ 10 ML INJECTION (09:22)
--- NOTE | 2022-12-07 10:16 | P.OP_ITS ---
Operative Report Date of procedure: December 07, 2022 Pre-op diagnosis: Preop Diagnosis Symptomatic cholelithiasis Post-op diagnosis: same Procedure done: Laparoscopic cholecystectomy Implants: Surgicel Specimens removed/disposition: Gallbladder Surgeon: Dr. Harman Solomon DO Anesthesia: General Estimated blood loss (mL): 20 Complications: None apparent Findings: Extensive intra-abdominal adhesions Brief History: Is a 52-year-old gentleman who previously had a total colectomy for toxic megacolon, that was found to have symptomatic cholelithiasis. Laparoscopic cholecystectomy was indicated. The risk and benefits were explained and documented. Preoperatively, the patient's mother said that his last dose of Eliquis was last night and then with further questioning she said it was actually 2 days ago. Procedure: Patient was wheeled into the operative room and placed on the OR table in a reddy pine position. Abdomen was inspected prepped and draped in usual sterile fashion. Time-out was performed and all present were in agreement. A 15 blade scalp was used to make a stab incision in the left upper quadrant and intra- abdominal insufflation was achieved using a Veress needle. After localizing the tissue incisions were made and a 5 millimeter trocar was placed superior and left of the umbilicus as well as 2 in the right upper quadrant. A 12 millimeter trocar was placed in the epigastrium. There was significant small bowel adhesions around the ileostomy. Skin and liver bled somewhat excessively. Gallbladder was grasped and elevated. The triangle of Calot was carefully dissected using blunt dissection and electrocautery until the triangle of Calot clearly identified. The cystic duct was clipped proximally and double clipped distally. The duct was then ligated proximally. The cystic artery was doubly clipped and ligated. The gallbladder was then removed from the liver bed using electrocautery. The gallbladder was removed from the abdomen using an Endo- Catch bag through the epigastric incision. The liver bed was inspected and bleeding was controlled with electrocautery and a piece of Surgicel was placed over the jamel hepatis. The abdomen was irrigated and suctioned. All ports removed. Skin was washed and dried. Incisions were closed with 4-0 Monocryl in a subcuticular interrupted fashion. Skin glue was applied. Patient tolerated the procedure well.
[2022-12-07] MEDS: HYDROcodone-acetaminophen 10-325 mg Tablet 1 TAB PO (11:34)
--- NOTE | 2022-12-07 14:34 | ANE.PACU2 ---
Inpatient post-anesthesia follow up: Airway intact: Yes Vital signs: Temperature 97.6 F Pulse Rate 63 Respiratory Rate 18 Blood Pressure 148/93 Pulse Oximetry 100 Oxygen Delivery Me thod Room Air Oxygen Flow Rate 10 Fraction of Inspir ed Oxygen Hydration adequate: Yes Nausea and vomiting: No Pain level: 1 Mental status: Baseline
== END 2022-12-07 11:50 | disposition home or self-care (01) ==
PROVIDERS: Anesthesiology; PCP Nurse Practitioner; Visit Provider Surgery
PROC: 0FT44ZZ Resection of Gallbladder, Percutaneous Endoscopic Approach (ICD-10-PCS; CPT 47562; principal; 2022-12-07 08:25)
DX: K80.10 Calculus of gallbladder with chronic cholecystitis without obstruction (principal); Z90.49 Acquired absence of other specified parts of digestive tract; I10 Essential (primary) hypertension; Z86.718 Personal history of other venous thrombosis and embolism; Z93.2 Ileostomy status
CPT/HCPCS: 47562; 36415; 80048; 85025; 88304; A4216; J0330; J0690; J1100; J1170; J2250; J2370; J2405; J2704; J2710; J3010; J3490; J7030

== ENCOUNTER → 2022-12-10 13:02 | Outpatient (BNVA) | payer MEDICARE, MEDICAID, SELFPAY | PROVIDERS: PCP Nurse Practitioner; Visit Provider Nurse Practitioner Family | DX: I87.2 Venous insufficiency (chronic) (peripheral) (principal); L97.812 Non-pressure chronic ulcer of other part of right lower leg with fat layer exposed | CPT/HCPCS: 97597; 99212 ==

== ENCOUNTER → 2022-12-14 15:52 | Outpatient (BNVA) | payer MEDICARE, MEDICAID, SELFPAY | PROVIDERS: PCP Nurse Practitioner; Visit Provider Thoracic Surgery (Cardiothoracic Vascular Surgery) | DX: I87.2 Venous insufficiency (chronic) (peripheral) (principal); L97.811 Non-pressure chronic ulcer of other part of right lower leg limited to breakdown of skin | CPT/HCPCS: 29581 ==

== ENCOUNTER → 2022-12-17 10:38 | Outpatient (BNVA) | payer MEDICARE, MEDICAID, SELFPAY | PROVIDERS: PCP Nurse Practitioner; Visit Provider Nurse Practitioner Family | DX: I96 Gangrene, not elsewhere classified (principal); I87.2 Venous insufficiency (chronic) (peripheral); L97.812 Non-pressure chronic ulcer of other part of right lower leg with fat layer exposed | CPT/HCPCS: 97597 ==

== ENCOUNTER 2022-12-22 01:19 | Emergency (ER) | payer MEDICARE, MEDICAID, SELFPAY ==
[2022-12-22] VITALS (18 sets, daily range): BP systolic 98–162; BP diastolic 67–123; PULSE 81–117; RESP 18–34; O2SAT 84–100; BMI 31.6
--- NOTE | 2022-12-22 01:20 | XRR_ITS ---
PROCEDURE INFORMATION: Exam: XR Chest Exam date and time: 12/22/2022 1:26 AM Age: 52 years old Clinical indication: Device placement; Ett placement (vent status); Patient HX: Check S/P intubation post seizure. TECHNIQUE: Imaging protocol: Radiologic exam of the chest. Views: 1 view. COMPARISON: CR XR chest 1V portable [id number] 09/16/2022 8:21 AM FINDINGS: Tubes, catheters and devices: Endotracheal tube is 4 cm cephalad to jim. Lungs: Unremarkable. No consolidation. Pleural spaces: Unremarkable. No pleural effusion. No pneumothorax. Heart/Mediastinum: Unremarkable. No cardiomegaly. Bones/joints: Unremarkable. XR/XR chest 1V portable [id number] IMPRESSION: Unremarkable endotracheal tube position.
[2022-12-22] MEDS: LORazepam 2 mg/mL INJ 1 mL IVP ×2 (01:25→01:32)
--- NOTE | 2022-12-22 01:38 | ED_ITS ---
HPI - Seizure General: Chief Complaint: Seizure Stated Complaint: seizure Time Seen by Provider: 12/22/22 01:19 Source: patient and EMS Mode of arrival: EMS Limitations: no limitations History of Present Illness: HPI Narrative: 52-year-old male has a history of seizures per EMS family states he had 2 tonight his second 1 was at 1230 tonight and states that he has been in status ever since I am getting 4 mg of Ativan IM they were not able to establish an IV and he is continues to have seizures. Patient is currently seizing at this time. He takes Depakote for his seizures. Seizure History: Yes Review of Systems General: Reports: ROS unobtainable due to mental status PFSH ED PFSH: Medical History Cellulitis of oral soft tissues Developmental disorder Endotracheally intubated Essential hypertension Frontal lobe epilepsy Generalized epilepsy Hypertension Intellectual disability Leukocytosis Morbid obesity Peripheral vascular disease Seizure Status epilepticus Venous stasis dermatitis Surgical History History of total colectomy August 2022 S/P vein stripping Family History Father Cancer Lung cancer Mother CAD (coronary artery disease) Other Diabetes Heart disease Hypertension Denies family history of Stroke Social History Smoking and tobacco status: never smoked Second hand smoke exposure: No Smoking risk assessment/counseling performed?: No Alcohol intake: never Desire information about alcohol rehabilitation?: No Counseling given: No Substance/Drug Use: never Desire information about substance/drug rehabilitation?: No Counseling given: No Caregiver/support person: Yes Lives independently: No Household members: family Marital status: Single service: No Current occupational status: disabled Do you think of yourself as: Straight/Heterosexual Current gender identity: Male Physical Exam Const: COMMON NORMALS: negative for patient oriented x3 GENERAL APPEARANCE: in distress and ill appearing HENMT: COMMON NORMALS: normocephalic and atraumatic HEAD & SCALP: normocephalic and atraumatic Eye: COMMON NORMALS: conjunctivae normal CONJUNCTIVA: Yes conjunctivae normal Neck/C-Spine: COMMON NORMALS: full ROM and supple Chest: COMMONS NORMALS: normal inspection of the chest and normal palpation of entire chest wall Resp: COMMON NORMALS: normal respiratory effort, No retractions and No use of accessory muscles AUSCULTATION: rales Cardio: COMMON NORMALS: regular rhythm and No murmurs present (Cardio) RATE: tachycardic RHYTHM: regular rhythm GI: COMMON NORMALS: Normal to inspection, nondistended, normoactive bowel sounds present, Soft to palpation, non-tender and no masses PALPATION: Yes Soft to palpation Extremity: COMMON NORMALS: normal to inspection and full ROM Neuro: COMMON NORMALS: negative for patient oriented x3 OTHER: Patient currently seizing Psych: COMMON NORMALS: negative for mental status grossly normal and negative for Normal thought process present THOUGHT PROCESS: abnormal Skin: COMMON NORMALS: no rashes or lesions noted and no wounds GENERAL SKIN EXAM: no rashes or lesions noted Procedures Intubation Time out performed: Yes sedative: Etomidate Mg Given: 20 paralytic: Vecuronium Mg Given: 12 Laryngoscope: Kevin ET Tube Size: 8 ET Tube Uncuffed: No Tube Secured Depth (cm): 26 Tube Secured Location: teeth Tube Placement Confirmation: visualized tube passing through cords, equal breath sounds bilaterally, no breath sounds over epigastrium and confirmation by capnometry Patient Tolerated Procedure: well Intubation Complications: none Course Vital Signs: Vital signs: Vital Signs Pulse Rate 117 H 12/22/22 01:23 Respiratory Rate 18 12/22/22 01:42 Blood Pressure 159/123 12/22/22 01:23 Pulse Oximetry 84 L 12/22/22 01:23 Oxygen Delivery Me thod Nasal Cannula 12/22/22 01:23 Oxygen Flow Rate 6 12/22/22 01:23 Fraction of Inspir ed Oxygen 100 12/22/22 01:42 MDM - Seizure MDM Narrative Medical decision making narrative: Patient presents here with status epilepticus we did seize for over 30 minutes he had a total of 8 mg of Ativan between here and EMS along with Keppra and he still seizing I did intubate him due to this he is no longer seizing spoke to [facility] fiberglass machine operator and will transfer there for higher level of care for neurology and EEG capabilities. Lab Data 12/22/22 01:41 12/22/22 01:41 Labs: Laboratory Results WBC 15.1 10^3/uL (4.0-10.0) H 12/22/22 01:41 RBC 4.87 10^6/uL (4.1-5.3) 12/22/22 01:41 Hgb 15.3 g/dL (11.7-16.6) 12/22/22 01:41 Hct 47.0 % (42.0-52.0) 12/22/22 01:41 MCV 96.5 fl (80-94) H 12/22/22 01:41 MCH 31.4 pg (28.0-34.0) 12/22/22 01:41 MCHC 32.6 g/dL (30.0-36.0) 12/22/22 01:41 RDW 14.0 % (12.1-15.1) 12/22/22 01:41 Plt Count 287 10^3/cmm (130-400) 12/22/22 01:41 MPV 9.7 fL (7.4-10.4) 12/22/22 01:41 Neut % (Auto) 63.2 % 12/22/22 01:41 Lymph % (Auto) 22.5 % 12/22/22 01:41 [place] % (Auto) 9.0 % 12/22/22 01:41 Eos % (Auto) 4.1 % 12/22/22 01:41 Baso % (Auto) 0.5 % 12/22/22 01:41 Neut # (Auto) 9.52 10^3/uL (1.8-7.7) H 12/22/22 01:41 Lymph # (Auto) 3.4 10^3/uL (0.8-4.8) 12/22/22 01:41 [place] # (Auto) 1.4 10^3/uL (0.2-0.9) H 12/22/22 01:41 Eos # (Auto) 0.6 10^3/uL (0.0-0.8) 12/22/22 01:41 Baso # (Auto) 0.1 10^3/uL (0.0-0.1) 12/22/22 01:41 Nucleated RBC % (auto) 0 % 12/22/22 01:41 Nucleated RBCs # 0.0 /100WBC 12/22/22 01:41 Sodium 139 mmol/L (136-145) 12/22/22 01:41 Potassium 5.2 mmol/L (3.5-5.1) H 12/22/22 01:41 Chloride 98 mmol/L (98-107) 12/22/22 01:41 Carbon Dioxide 21 mmol/L (22-29) L 12/22/22 01:41 Anion Gap 25.2 (5-19) H 12/22/22 01:41 BUN 12 mg/dL (6-20) 12/22/22 01:41 Creatinine 0.6 mg/dL (0.7-1.2) L 12/22/22 01:41 GFR Calculation 142.0 mL/min (90-130) H 12/22/22 01:41 Glucose 98 mg/dL (65-115) 12/22/22 01:41 Calculated Osmolality 288 mOsm/kg (285-295) 12/22/22 01:41 Calcium 9.5 mg/dL (8.5-10.5) 12/22/22 01:41 Total Bilirubin 0.5 mg/dL (0.15-1.2) 12/22/22 01:41 AST 27 U/L (0-40) 12/22/22 01:41 ALT 71 U/L (0-41) H 12/22/22 01:41 Alkaline Phosphatase 220 U/L (40-130) H 12/22/22 01:41 Total Protein 7.3 g/dL (6.6-8.7) 12/22/22 01:41 Albumin 4.3 g/dL (3.5-5.2) 12/22/22 01:41 Globulin 3.0 g/dL (1.3-4.6) 12/22/22 01:41 Phenytoin 4.4 ug/mL (10-20) L 12/22/22 01:41 Critical Care Time Critical Care Time: Critical Care Time: Yes Total Critical Care Time: 40 Attestation: The high probability of a clinically significant, sudden or life threatening deterioration of the patient's neuro system(s) required my full and direct attention, intervention and personal management. The critical care time is as shown. This time is in addition to time spent performing any reported procedures but includes the following: [x] Data and vital sign review and interpretation [x] Patient assessment, examination and intervention [x] Documentation [x] Medication orders and management Discharge Plan Discharge Patient Disposition: Xfer Short-Term Hosp Clinical Impression: Status epilepticus Condition: Stable Referrals: Candi Latif FNP-C [Primary Care Provider] - Coding Level of Care Code ED Employee Relations Advisor for Antonio Avila
[2022-12-22] MEDS: vecuronium 10 mg SDV 12 MG IVP (01:39)
[2022-12-22] MEDS: etomidate 2 mg/mL INJ SDV 10 mL 20 MG IVP (01:39)
[2022-12-22 01:48] LABS: Basophils # 0.1 10^3/uL (0.0-0.1); Basophils % 0.5 %; Eosinophils # 0.6 10^3/uL (0.0-0.8); Eosinophils % 4.1 %; Hemoglobin 15.3 g/dL (11.7-16.6); Lymphocytes # 3.4 10^3/uL (0.8-4.8); Lymphocytes % 22.5 %; Mean Corpuscular HGB Conc 32.6 g/dL (30.0-36.0); Mean Corpuscular Hemoglobin 31.4 pg (28.0-34.0); Mean Corpuscular Volume 96.5 fl (80-94); Mean Platelet Volume 9.7 fL (7.4-10.4); Monocytes # 1.4 10^3/uL (0.2-0.9); Neutrophils # 9.52 10^3/uL (1.8-7.7); Neutrophils % 63.2 %; Nucleated Red Blood Cells % 0 %; Platelet Count 287 10^3/cmm (130-400); Red Blood Count 4.87 10^6/uL (4.1-5.3); White Blood Count 15.1 10^3/uL (4.0-10.0)
[2022-12-22 02:04] LABS: Alanine Aminotransferase 71 U/L (0-41); Albumin Level 4.3 g/dL (3.5-5.2); Alkaline Phosphatase 220 U/L (40-130); Anion Gap 25.2 (5-19); Aspartate Amino Transferase 27 U/L (0-40); Blood Urea Nitrogen 12 mg/dL (6-20); Calcium 9.5 mg/dL (8.5-10.5); Carbon Dioxide 21 mmol/L (22-29); Chloride 98 mmol/L (98-107); Glucose 98 mg/dL (65-115); Osmolality Calculated 288 mOsm/kg (285-295); Potassium 5.2 mmol/L (3.5-5.1); Sodium 139 mmol/L (136-145); Total Bilirubin 0.5 mg/dL (0.15-1.2); Total Protein 7.3 g/dL (6.6-8.7)
[2022-12-22 02:05] LABS: Phenytoin Dilantin 4.4 ug/mL (10-20)
[2022-12-22] MEDS: propofol 1,000 MG/100 ML INJ 3.54 MG IV (02:05)
--- NOTE | 2022-12-22 02:12 | CTR_ITS ---
PROCEDURE INFORMATION: Exam: CT Head Without Contrast Exam date and time: 12/22/2022 2:52 AM Age: 52 years old Clinical indication: Condition or disease; Convulsions or seizures; Patient HX: Seizure activity. Intubated. TECHNIQUE: Imaging protocol: Computed tomography of the head without contrast. Radiation optimization: All CT scans at this facility use at least one of these dose optimization techniques: automated exposure control; mA and/or kV adjustment per patient size (includes targeted exams where dose is matched to clinical indication); or iterative reconstruction. REPORTING DATA: Count of CT and Cardiac NM exams in prior 12 months: This patient has received 5 known CTs and 0 known cardiac nuclear medicine studies in the 12 months prior to the current study. COMPARISON: CT head wo con* [id number] 08/20/2022 11:48 AM RADIATION DOSE METRICS: Total DLP (mGy-cm): 1190.4 FINDINGS: Brain: Normal. No hemorrhage. Unremarkable white matter. No mass effect. Cerebral ventricles: No ventriculomegaly. Paranasal sinuses: Visualized sinuses are unremarkable. No fluid levels. Mastoid air cells: Visualized mastoid air cells are well aerated. Bones/joints: Unremarkable. No acute fracture. Soft tissues: Unremarkable. CT/CT head wo con* [id number] IMPRESSION: No acute intracranial abnormality.
[2022-12-22 02:19] LABS: ABG PCO2 42.2 mmHg (35-45); ABG PH Result 7.33 (7.35-7.45); Alveolar-Arterial Oxygen Gradi 47.2 mmHg (5-10); Arterial Blood Gas Hematocrit 45.9 % (42-52); Base Excess ABG -3.6 mmol/L (-2.0-2.0); Blood Gas Allen Test Pos; Blood Gas Sample Site Brachial, right; Blood Gas Sample Type Arterial; Carboxyhemoglobin 1.3 %THgb (0.4-20.1); HCO3 ABG 22.3 mmol/L (22-26); HGB O2 Sat 95.4 % (95-100); Ionized Calcium Level - ABG 1.2 mmol/L (1.1-1.4); Methemoglobin 0.3 % (0.4-1.5); Oxygen Device VENT; Oxygen Saturation ABG 97.1; PO2 ABG 86.1 mmHg (80.0-100.0); Potassium Level - ABG 3.9 mmol/L (3.5-5.0)
--- NOTE | 2022-12-22 03:15 | ECG_ITS ---
[facility] Test Date: 2022-12-22 Pat Name: Jaziel Willis Department: Room: Gender: Male Manager Land: : 1970 Requested By: Sulma Butler Order Number: [id number] Tucker MD: Mandeep Chen M.D. Measurements Intervals [place] Rate: 78 P: 48 CO: 148 QRS: 85 QRSD: 147 T: 66 QT: 397 QTc: 452 Interpretive Statements SINUS RHYTHM RIGHT BUNDLE BRANCH BLOCK [120+ ms QRS DURATION, UPRIGHT V1, 40+ ms S IN I/aVL/V4/V5/V6] Compared to ECG 10/26/2022 15:24:04 No significant changes Electronically Signed On 12-22-2022 10:10:43 CDT by Mandeep Chen M.D. [id number]
== END 2022-12-22 03:52 | disposition short-term general hospital (02) ==
PROVIDERS: Emergency Provider Emergency Medicine; PCP Nurse Practitioner
DX: G40.901 Epilepsy, unspecified, not intractable, with status epilepticus (principal); I10 Essential (primary) hypertension
CPT/HCPCS: 31500; 36600; 70450; 71045; 80051; 80053; 80185; 82330; 82805; 85025; 93005; 94002; 94799; 96365; 96367; 96375; 96376; 99291; 99292; J1953; J2060; J2704; J3010; J3490

== ENCOUNTER → 2022-12-28 08:26 | Outpatient (BNVA) | payer MEDICARE, MEDICAID, SELFPAY | PROVIDERS: PCP Nurse Practitioner; Visit Provider Specialist | DX: G40.801 Other epilepsy, not intractable, with status epilepticus (principal); G40.301 Generalized idiopathic epilepsy and epileptic syndromes, not intractable, with status epilepticus | CPT/HCPCS: 99215 ==

== ENCOUNTER → 2022-12-31 10:17 | Outpatient (BNVA) | payer MEDICARE, MEDICAID, SELFPAY | PROVIDERS: PCP Nurse Practitioner; Visit Provider Nurse Practitioner Family | DX: Z09 Encounter for follow-up examination after completed treatment for conditions other than malignant neoplasm (principal) | CPT/HCPCS: 99212 ==

== ENCOUNTER → 2023-01-05 10:22 | Outpatient (BNVA) | payer MEDICARE, MEDICAID, SELFPAY | PROVIDERS: PCP Nurse Practitioner; Visit Provider Surgery | DX: Z98.890 Other specified postprocedural states (principal) | CPT/HCPCS: 99024 ==

== ENCOUNTER → 2023-02-08 13:08 | Outpatient (BNVA) | payer MEDICARE, MEDICAID, SELFPAY | PROVIDERS: PCP Nurse Practitioner; Visit Provider Thoracic Surgery (Cardiothoracic Vascular Surgery) | DX: I96 Gangrene, not elsewhere classified (principal); I87.2 Venous insufficiency (chronic) (peripheral); L97.822 Non-pressure chronic ulcer of other part of left lower leg with fat layer exposed | CPT/HCPCS: 99213 ==

== ENCOUNTER → 2023-02-11 14:17 | Outpatient (BNVA) | payer MEDICARE, MEDICAID, SELFPAY | PROVIDERS: PCP Nurse Practitioner; Visit Provider Nurse Practitioner Family | DX: I96 Gangrene, not elsewhere classified (principal); I87.2 Venous insufficiency (chronic) (peripheral); L97.822 Non-pressure chronic ulcer of other part of left lower leg with fat layer exposed | CPT/HCPCS: 29581 ==

== ENCOUNTER → 2023-02-15 15:33 | Outpatient (BNVA) | payer MEDICARE, MEDICAID, SELFPAY | PROVIDERS: PCP Nurse Practitioner; Visit Provider Thoracic Surgery (Cardiothoracic Vascular Surgery) | DX: I87.2 Venous insufficiency (chronic) (peripheral) (principal); I96 Gangrene, not elsewhere classified; L97.822 Non-pressure chronic ulcer of other part of left lower leg with fat layer exposed | CPT/HCPCS: 97597 ==

== ENCOUNTER → 2023-02-22 15:27 | Outpatient (BNVA) | payer MEDICARE, MEDICAID, SELFPAY | PROVIDERS: PCP Nurse Practitioner; Visit Provider Thoracic Surgery (Cardiothoracic Vascular Surgery) | DX: Z09 Encounter for follow-up examination after completed treatment for conditions other than malignant neoplasm (principal) | CPT/HCPCS: 99212 ==

== ENCOUNTER 2023-03-03 14:00 | Emergency (ER) | payer MEDICARE, MEDICAID, SELFPAY ==
[2023-03-03] VITALS (15 sets, daily range): BP systolic 120–159; BP diastolic 68–99; PULSE 60–94; RESP 16–18; TEMP 37.1; O2SAT 85–100; BMI 30.4
[2023-03-03] MEDS: LORazepam 2 mg/mL INJ 1 mL 4 MG IVP (14:15)
[2023-03-03 14:25] LABS: Basophils # 0.1 10^3/uL (0.0-0.1); Basophils % 0.7 %; Eosinophils # 0.5 10^3/uL (0.0-0.8); Eosinophils % 4.3 %; Hematocrit 47.1 % (42.0-52.0); Hemoglobin 15.9 g/dL (11.7-16.6); Lymphocytes # 2.9 10^3/uL (0.8-4.8); Lymphocytes % 24.9 %; Mean Corpuscular HGB Conc 33.8 g/dL (30.0-36.0); Mean Corpuscular Hemoglobin 32.3 pg (28.0-34.0); Mean Corpuscular Volume 95.5 fl (80-94); Monocytes # 1.1 10^3/uL (0.2-0.9); Monocytes % 9.4 %; Neutrophils # 7.05 10^3/uL (1.8-7.7); Neutrophils % 59.9 %; Nucleated Red Blood Cells % 0 %; Platelet Count 242 10^3/cmm (130-400); Red Blood Count 4.93 10^6/uL (4.1-5.3); Red Cell Distribution Width 14.2 % (12.1-15.1); White Blood Count 11.8 10^3/uL (4.0-10.0)
[2023-03-03 14:43] LABS: Alanine Aminotransferase 21 U/L (0-41); Albumin Level 4.5 g/dL (3.5-5.2); Alkaline Phosphatase 138 U/L (40-130); Anion Gap 20.5 (5-19); Aspartate Amino Transferase 26 U/L (0-40); Blood Urea Nitrogen 9 mg/dL (6-20); Calcium 9.1 mg/dL (8.5-10.5); Carbon Dioxide 20 mmol/L (22-29); Chloride 101 mmol/L (98-107); Globulin 2.9 g/dL (1.3-4.6); Glomerular Filtration Rate 118.9 mL/min (90-130); Glucose 110 mg/dL (65-115); Osmolality Calculated 283 mOsm/kg (285-295); Potassium 4.5 mmol/L (3.5-5.1); Sodium 137 mmol/L (136-145); Total Bilirubin 0.4 mg/dL (0.15-1.2); Total Protein 7.4 g/dL (6.6-8.7)
[2023-03-03] MEDS: vecuronium 10 mg SDV IVP (14:46)
[2023-03-03] MEDS: etomidate 2 mg/mL INJ SDV 10 mL 20 MG IVP (14:46)
--- NOTE | 2023-03-03 14:49 | XR_ITS ---
WS: [id number] XR chest 1V portable [id number] REASON FOR EXAM: post intubation FINDINGS: Endotracheal tube is been placed the tip is in proper position at the level of the aortic arch. The thoracic aorta is moderately tortuous and ectatic. The heart size is within normal limits. Calcified granulomatous disease in both hemithoraces. No acute/subacute pulmonary parenchymal or pleural abnormality. XR/XR chest 1V portable [id number] IMPRESSION: Endotracheal tube in proper position. No acute/subacute chest abnormality.
[2023-03-03] MEDS: propofol 1,000 MG/100 ML INJ 3.4 MG IV (15:03)
--- NOTE | 2023-03-03 15:04 | ED_ITS ---
HPI - Seizure General: Chief Complaint: Seizure Stated Complaint: Seizures Time Seen by Provider: 03/03/23 14:03 Source: EMS Mode of arrival: EMS Limitations: altered mental status History of Present Illness: HPI Narrative: 52-year-old male has a long history of seizures and epilepsy. Patient had been seizing roughly for 30 minutes patient received 4 mg of Versed in route by EMS he still actively seizing I know patient well have had to intubate him before for status epilepticus. No recent known illness or head injuries. Seizure History: Yes PFSH ED PFSH: Medical History Cellulitis of oral soft tissues Developmental disorder Endotracheally intubated Essential hypertension Frontal lobe epilepsy Generalized epilepsy Hypertension Intellectual disability Leukocytosis Morbid obesity Peripheral vascular disease Seizure Status epilepticus Venous stasis dermatitis Surgical History History of total colectomy August 2022 S/P vein stripping Family History Father Cancer Lung cancer Mother CAD (coronary artery disease) Other Diabetes Heart disease Hypertension Denies family history of Stroke Social History Smoking and tobacco status: never smoked Second hand smoke exposure: No Smoking risk assessment/counseling performed?: No Alcohol intake: never Desire information about alcohol rehabilitation?: No Counseling given: No Substance/Drug Use: never Desire information about substance/drug rehabilitation?: No Counseling given: No Caregiver/support person: Yes Lives independently: No Household members: family Marital status: Single service: No Current occupational status: disabled Do you think of yourself as: Straight/Heterosexual Current gender identity: Male Physical Exam Const: COMMON NORMALS: negative for patient oriented x3 GENERAL APPEARANCE: ill appearing OTHER: Actively seizing HENMT: COMMON NORMALS: normocephalic and atraumatic HEAD & SCALP: normocephalic and atraumatic Eye: COMMON NORMALS: conjunctivae normal CONJUNCTIVA: Yes conjunctivae normal Neck/C-Spine: COMMON NORMALS: full ROM and supple Chest: COMMONS NORMALS: normal inspection of the chest and normal palpation of entire chest wall Resp: COMMON NORMALS: normal respiratory effort, No retractions, No use of accessory muscles and clear to auscultation bilaterally AUSCULTATION: clear to auscultation bilaterally Cardio: COMMON NORMALS: regular rate, regular rhythm and No murmurs present (Cardio) RATE: regular rate RHYTHM: regular rhythm GI: COMMON NORMALS: Normal to inspection, nondistended, normoactive bowel sounds present, Soft to palpation, non-tender and no masses PALPATION: Yes Soft to palpation Extremity: COMMON NORMALS: normal to inspection and full ROM Neuro: COMMON NORMALS: negative for patient oriented x3 OTHER: Actively seizing Psych: COMMON NORMALS: negative for mental status grossly normal and negative for Normal thought process present THOUGHT PROCESS: abnormal Skin: COMMON NORMALS: no rashes or lesions noted and no wounds GENERAL SKIN EXAM: no rashes or lesions noted Procedures Intubation Time out performed: Yes sedative: Etomidate Mg Given: 20 paralytic: Vecuronium Mg Given: 10 Laryngoscope: Kevin ET Tube Size: 8 ET Tube Uncuffed: No Tube Secured Depth (cm): 25 Tube Secured Location: teeth Tube Placement Confirmation: visualized tube passing through cords, equal breath sounds bilaterally, no breath sounds over epigastrium and confirmation by capnometry Patient Tolerated Procedure: well Intubation Complications: none Course Vital Signs: Vital signs: Vital Signs Temperature 98.7 F 03/03/23 14:01 Pulse Rate 70 03/03/23 15:15 Respiratory Rate 16 03/03/23 15:07 Blood Pressure 151/98 03/03/23 15:15 Pulse Oximetry 100 03/03/23 15:15 Oxygen Delivery Me thod Room Air 03/03/23 14:01 Fraction of Inspir ed Oxygen 100 03/03/23 14:55 MDM - Seizure MDM Narrative Medical decision making narrative: Patient presents here with status epilepticus patient had to be intubated here blood work here is normal he is on propofol currently I did speak to [facility] will transfer there for higher level of care for neurology availability and likely eeg Lab Data 03/03/23 14:13 03/03/23 14:13 Labs: Radiology Impressions Chest X-Ray 03/03/23 14:49 IMPRESSION: Endotracheal tube in proper position. No acute/subacute chest abnormality. Laboratory Results WBC 11.8 10^3/uL (4.0-10.0) H 03/03/23 14:13 RBC 4.93 10^6/uL (4.1-5.3) 03/03/23 14:13 Hgb 15.9 g/dL (11.7-16.6) 03/03/23 14:13 Hct 47.1 % (42.0-52.0) 03/03/23 14:13 MCV 95.5 fl (80-94) H 03/03/23 14:13 MCH 32.3 pg (28.0-34.0) 03/03/23 14:13 MCHC 33.8 g/dL (30.0-36.0) 03/03/23 14:13 RDW 14.2 % (12.1-15.1) 03/03/23 14:13 Plt Count 242 10^3/cmm (130-400) 03/03/23 14:13 MPV 9.0 fL (7.4-10.4) 03/03/23 14:13 Neut % (Auto) 59.9 % 03/03/23 14:13 Lymph % (Auto) 24.9 % 03/03/23 14:13 [place] % (Auto) 9.4 % 03/03/23 14:13 Eos % (Auto) 4.3 % 03/03/23 14:13 Baso % (Auto) 0.7 % 03/03/23 14:13 Neut # (Auto) 7.05 10^3/uL (1.8-7.7) 03/03/23 14:13 Lymph # (Auto) 2.9 10^3/uL (0.8-4.8) 03/03/23 14:13 [place] # (Auto) 1.1 10^3/uL (0.2-0.9) H 03/03/23 14:13 Eos # (Auto) 0.5 10^3/uL (0.0-0.8) 03/03/23 14:13 Baso # (Auto) 0.1 10^3/uL (0.0-0.1) 03/03/23 14:13 Nucleated RBC % (auto) 0 % 03/03/23 14:13 Nucleated RBCs # 0.0 /100WBC 03/03/23 14:13 Specimen Type Arterial 03/03/23 15:40 Sample Site Radial, right 03/03/23 15:40 ABG pH 7.37 (7.35-7.45) 03/03/23 15:40 ABG pCO2 43.3 mmHg (35-45) 03/03/23 15:40 ABG pO2 434.0 mmHg (80.0-100.0) H 03/03/23 15:40 ABG HCO3 24.9 mmol/L (22-26) 03/03/23 15:40 ABG O2 Saturation > 100.0 03/03/23 15:40 ABG Base Excess -0.7 mmol/L (-2.0-2.0) 03/03/23 15:40 Ricardo Test Pos 03/03/23 15:40 A-a O2 Gradient 28.2 mmHg (5-10) H 03/03/23 15:40 Hematocrit 46.9 % (42-52) 03/03/23 15:40 Hgb O2 Saturation 99.5 % (95-100) 03/03/23 15:40 Carboxyhemoglobin 0.9 %THgb (0.4-20.1) 03/03/23 15:40 Methemoglobin 0.3 % (0.4-1.5) L 03/03/23 15:40 Total Hemoglobin 15.3 g/dL (14-18) 03/03/23 15:40 Sodium 140.0 mmol/L (131-143) 03/03/23 15:40 Potassium 4.1 mmol/L (3.5-5.0) 03/03/23 15:40 Glucose 109.0 mg/dL (70-115) 03/03/23 15:40 Ionized Calcium 1.2 mmol/L (1.1-1.4) 03/03/23 15:40 O2 Delivery Device Vent 03/03/23 15:40 FiO2 100.0 % 03/03/23 15:40 Tidal Volume 0.50 03/03/23 15:40 PEEP 5.0 cmH20 03/03/23 15:40 Mechanical Engineering Draftsperson ID [place] 03/03/23 15:40 Sodium 137 mmol/L (136-145) 03/03/23 14:13 Potassium 4.5 mmol/L (3.5-5.1) 03/03/23 14:13 Chloride 101 mmol/L (98-107) 03/03/23 14:13 Carbon Dioxide 20 mmol/L (22-29) L 03/03/23 14:13 Anion Gap 20.5 (5-19) H 03/03/23 14:13 BUN 9 mg/dL (6-20) 03/03/23 14:13 Creatinine 0.7 mg/dL (0.7-1.2) 03/03/23 14:13 GFR Calculation 118.9 mL/min (90-130) 03/03/23 14:13 Glucose 110 mg/dL (65-115) 03/03/23 14:13 Calculated Osmolality 283 mOsm/kg (285-295) L 03/03/23 14:13 Calcium 9.1 mg/dL (8.5-10.5) 03/03/23 14:13 Total Bilirubin 0.4 mg/dL (0.15-1.2) 03/03/23 14:13 AST 26 U/L (0-40) 03/03/23 14:13 ALT 21 U/L (0-41) 03/03/23 14:13 Alkaline Phosphatase 138 U/L (40-130) H 03/03/23 14:13 Total Protein 7.4 g/dL (6.6-8.7) 03/03/23 14:13 Albumin 4.5 g/dL (3.5-5.2) 03/03/23 14:13 Globulin 2.9 g/dL (1.3-4.6) 03/03/23 14:13 Valproic Acid 2.8 ug/mL (50-100) L 03/03/23 14:13 Critical Care Time Critical Care Time: Critical Care Time: Yes Total Critical Care Time: 47 Attestation: The high probability of a clinically significant, sudden or life threatening deterioration of the patient's neuro system(s) required my full and direct attention, intervention and personal management. The critical care time is as shown. This time is in addition to time spent performing any reported procedures but includes the following: [x] Data and vital sign review and interpretation [x] Patient assessment, examination and intervention [x] Documentation [x] Medication orders and management Discharge Plan Discharge Condition: Stable Prescriptions: No Action (DME) Compression hose 30/40 See Rx Instructions .Route .MEDSUPPLY Qty: 1 2RF Rx Instructions: Measure to fit A6531 (DME) Diabetic Shoes with 3 pairs of inserts See Rx Instructions .ROUTE .MEDSUPPLY Qty: 1 0RF Rx Instructions: As directed by HOME levetiracetam [Keppra] 1,000 mg tablet See Rx Instructions .ROUTE .COMPLEX Qty: 90 5RF Rx Instructions: TAKE 1 AND 1/2 TABLETS BY MOUTH TWICE DAILY *take in morning and evening* lacosamide [Vimpat] 200 mg tablet 200 mg PO BID Qty: 60 5RF phenytoin [Dilantin Infatabs] 50 mg tablet,chewable 250 mg .ROUTE Q8H 30 Days Qty: 450 5RF Rx Instructions: 250 mg every 8 hours; (DME) Compression hose See Rx Instructions Rx Instructions: Measure for size A6530 hydrocodone-acetaminophen 10-325 mg tablet 1 tab PO Q6H PRN (Reason: pain) Qty: 20 0RF Referrals: Candi Latif, [facility] SUPER[employer]OR-C [Primary Care Provider] - Coding Level of Care Code ED Communications Manager for Antonio Avila
[2023-03-03 15:08] LABS: Valproic Acid Level 2.8 ug/mL (50-100)
[2023-03-03 15:53] LABS: ABG PCO2 43.3 mmHg (35-45); ABG PH Result 7.37 (7.35-7.45); Alveolar-Arterial Oxygen Gradi 28.2 mmHg (5-10); Arterial Blood Gas Hematocrit 46.9 % (42-52); Base Excess ABG -0.7 mmol/L (-2.0-2.0); Blood Gas Allen Test Pos; Blood Gas Operator Identificat MONRO; Blood Gas Sample Site Radial, right; Blood Gas Sample Type Arterial; Carboxyhemoglobin 0.9 %THgb (0.4-20.1); HCO3 ABG 24.9 mmol/L (22-26); HGB O2 Sat 99.5 % (95-100); Ionized Calcium Level - ABG 1.2 mmol/L (1.1-1.4); Methemoglobin 0.3 % (0.4-1.5); Oxygen Device VENT; Oxygen Saturation ABG > 100.0; Potassium Level - ABG 4.1 mmol/L (3.5-5.0); Total Hemoglobin 15.3 g/dL (14-18)
--- NOTE | 2023-03-03 17:06 | PC.NURSE ---
PT being transferred to [facility]. Report called to Daniela MIRZA
== END 2023-03-03 18:20 | disposition short-term general hospital (02) ==
PROVIDERS: Emergency Provider Emergency Medicine; PCP Nurse Practitioner
DX: G40.901 Epilepsy, unspecified, not intractable, with status epilepticus (principal); I10 Essential (primary) hypertension
CPT/HCPCS: 31500; 36600; 71045; 80051; 80053; 80164; 82330; 82805; 85025; 87070; 87205; 94002; 94799; 96365; 96367; 96375; 99284; J1953; J2060; J2704; J3010; J3490

== ENCOUNTER → 2023-03-31 10:02 | Outpatient (BNVA) | payer MEDICARE, MEDICAID, SELFPAY | PROVIDERS: PCP Nurse Practitioner; Visit Provider Specialist | DX: G40.802 Other epilepsy, not intractable, without status epilepticus; F79 Unspecified intellectual disabilities; G40.409 Other generalized epilepsy and epileptic syndromes, not intractable, without status epilepticus; Z93.3 Colostomy status | CPT/HCPCS: 99214 ==

== ENCOUNTER 2023-04-02 10:21 | Outpatient (CLI) | payer MEDICARE, MEDICAID, SELFPAY ==
[2023-04-02 11:16] LABS: Phenytoin Dilantin 9.8 ug/mL (10-20)
== END 2023-04-02 10:22 | disposition home or self-care (01) ==
PROVIDERS: PCP Nurse Practitioner; Visit Provider Specialist
DX: G40.309 Generalized idiopathic epilepsy and epileptic syndromes, not intractable, without status epilepticus (principal); G40.802 Other epilepsy, not intractable, without status epilepticus; Z79.899 Other long term (current) drug therapy
CPT/HCPCS: 36415; 80185

== ENCOUNTER 2023-04-16 18:39 | Inpatient (IN) | payer MEDICARE, MEDICAID, SELFPAY ==
[2023-04-16] VITALS (13 sets, daily range): BP systolic 108–140; BP diastolic 65–105; PULSE 67–80; RESP 14–27; TEMP 36.4; O2SAT 93–98
[2023-04-16] MEDS: etomidate 2 mg/mL INJ SDV 10 mL 20 MG IVP (18:54)
[2023-04-16] MEDS: succinylcholine 20 mg/mL SDV 10mL 150 MG IVP (18:54)
[2023-04-16] MEDS: midazolam 1 mg/mL INJ 2 mL 2 MG IVP ×3 (18:55→19:12)
--- NOTE | 2023-04-16 18:56 | PC.NURSE ---
VERSED 2 MG WASTED. SUCC 50 MG WASTED. BOTH WITNESSED BY YUKI XAVIER.
--- NOTE | 2023-04-16 18:59 | XRR_ITS ---
PROCEDURE INFORMATION: Exam: XR Chest Exam date and time: 04/16/2023 7:40 PM Age: 52 years old Clinical indication: Other: N/a; Additional info: Et tube validation TECHNIQUE: Imaging protocol: Radiologic exam of the chest. Views: 1 view. COMPARISON: CR XR chest 1V portable [id number] 03/03/2023 2:52 PM FINDINGS: Tubes, catheters and devices: Endotracheal tube terminates in proper position 5 cm above the jim. OG tube terminates in the distal esophagus. Lungs: Unremarkable. No consolidation. Pleural spaces: Unremarkable. No pleural effusion. No pneumothorax. Heart/Mediastinum: Unremarkable. No cardiomegaly. Bones/joints: Unremarkable. XR/XR chest 1V portable [id number] IMPRESSION: 1. Endotracheal tube in proper positioning. 2. OG tube terminates in the distal esophagus. This has intervally been repositioned into the stomach.
--- NOTE | 2023-04-16 18:59 | CTR_ITS ---
PROCEDURE INFORMATION: Exam: CT Head Without Contrast Exam date and time: 04/16/2023 8:40 PM Age: 52 years old Clinical indication: Other: Seizure; Additional info: Sz TECHNIQUE: Imaging protocol: Computed tomography of the head without contrast. Radiation optimization: All CT scans at this facility use at least one of these dose optimization techniques: automated exposure control; mA and/or kV adjustment per patient size (includes targeted exams where dose is matched to clinical indication); or iterative reconstruction. REPORTING DATA: Count of CT and Cardiac NM exams in prior 12 months: This patient has received 5 known CTs and 0 known cardiac nuclear medicine studies in the 12 months prior to the current study. COMPARISON: CT head wo con* [id number] 12/22/2022 2:52 AM RADIATION DOSE METRICS: Total DLP (mGy-cm): 1197.4 FINDINGS: Brain: No hemorrhage. No edema. Mild diffuse cerebral atrophy. No significant white matter disease. No mass effect. Cerebral ventricles: No ventriculomegaly. Paranasal sinuses: Visualized sinuses are unremarkable. No fluid levels. Mastoid air cells: Visualized mastoid air cells are well aerated. Bones/joints: Unremarkable. No acute fracture. Soft tissues: Unremarkable. CT/CT head wo con* [id number] IMPRESSION: No acute intracranial abnormality.
--- NOTE | 2023-04-16 19:04 | PC.NURSE ---
PATIENT INTUBATED AT [address] AGUILAR.
[2023-04-16 19:14] LABS: Basophils # 0.1 10^3/uL (0.0-0.1); Basophils % 0.5 %; Eosinophils # 0.7 10^3/uL (0.0-0.8); Eosinophils % 3.4 %; Hematocrit 47.2 % (42.0-52.0); Hemoglobin 15.8 g/dL (11.7-16.6); Lymphocytes # 4.1 10^3/uL (0.8-4.8); Lymphocytes % 20.9 %; Mean Corpuscular HGB Conc 33.5 g/dL (30.0-36.0); Mean Corpuscular Hemoglobin 32.5 pg (28.0-34.0); Mean Corpuscular Volume 97.1 fl (80-94); Mean Platelet Volume 9.2 fL (7.4-10.4); Monocytes # 1.6 10^3/uL (0.2-0.9); Monocytes % 8.1 %; Neutrophils # 12.83 10^3/uL (1.8-7.7); Neutrophils % 65.8 %; Nucleated Red Blood Cells % 0 %; Platelet Count 303 10^3/cmm (130-400); Red Blood Count 4.86 10^6/uL (4.1-5.3); Red Cell Distribution Width 14.1 % (12.1-15.1); White Blood Count 19.5 10^3/uL (4.0-10.0)
[2023-04-16 19:19] LABS: ABG PCO2 39.9 mmHg (35-45); ABG PH Result 7.27 (7.35-7.45); Arterial Blood Gas Hematocrit 46.8 % (42-52); Base Excess ABG -8.3 mmol/L (-2.0-2.0); Blood Gas Sample Site Brachial, left; Blood Gas Sample Type Arterial; HCO3 ABG 18.2 mmol/L (22-26); Oxygen Device VENT
[2023-04-16 19:20] LABS: INR 1.01 (0.8-1.2)
[2023-04-16 19:28] LABS: Alanine Aminotransferase 23 U/L (0-41); Albumin Level 4.8 g/dL (3.5-5.2); Alcohol Level < 10 mg/dL (0-10); Alkaline Phosphatase 141 U/L (40-130); Anion Gap 23.1 (5-19); Aspartate Amino Transferase 22 U/L (0-40); Blood Urea Nitrogen 13 mg/dL (6-20); C Reactive Protein 17.1 mg/L (0.0-4.9); Calcium 9.6 mg/dL (8.5-10.5); Carbon Dioxide 20 mmol/L (22-29); Chloride 98 mmol/L (98-107); Creatine Phosphokinase 53 U/L (39-308); Globulin 2.6 g/dL (1.3-4.6); Glucose 101 mg/dL (65-115); Magnesium 2.2 mg/dL (1.7-2.3); Osmolality Calculated 284 mOsm/kg (285-295); Phosphorus 3.9 mg/dL (2.5-4.5); Potassium 4.1 mmol/L (3.5-5.1); Sodium 137 mmol/L (136-145); Total Bilirubin 0.4 mg/dL (0.15-1.2); Total Protein 7.4 g/dL (6.6-8.7)
--- NOTE | 2023-04-16 19:36 | XRR_ITS ---
PROCEDURE INFORMATION: Exam: XR Abdomen Exam date and time: 04/16/2023 7:42 PM Age: 52 years old Clinical indication: Other: N/a; Additional info: Og tube placement verification TECHNIQUE: Imaging protocol: Radiologic exam of the abdomen. Views: Frontal supine view of the abdomen. 1 View. COMPARISON: CR XR KUB portable [id number] 09/14/2022 5:28 AM FINDINGS: Gastrointestinal tract: OG tube terminates in the stomach. Bones/joints: Unremarkable. XR/XR abdomen 1V* [id number] IMPRESSION: OG tube terminates in the stomach.
--- NOTE | 2023-04-16 20:12 | ED_ITS ---
HPI - Seizure General: Chief Complaint: Seizure Stated Complaint: seizures Time Seen by Provider: 04/16/23 18:40 History of Present Illness: HPI Narrative: 52-year-old male with a history of frontal lobe epilepsy. He has similar frequent seizures. He was intubated last month, and sent to the ICU at [facility] for status epilepticus. He presents after essentially 3 seizures at home. He had 2 seizures at home, with little recovery between them. He had a third seizure on the way to the hospital in the back of the ambulance. He was given 2 mg of IM Ativan for this. He presents seizing. These are generalized tonic-clonic seizures. He is not responsive. Seizure History: Yes Review of Systems General: Reports: 10 or more systems reviewed and unremarkable except in HPI and below PFSH ED PFSH: Medical History Cellulitis of oral soft tissues Developmental disorder Endotracheally intubated Essential hypertension Frontal lobe epilepsy Generalized epilepsy Hypertension Intellectual disability Leukocytosis Morbid obesity Peripheral vascular disease Seizure Status epilepticus Venous stasis dermatitis Surgical History History of laparoscopic cholecystectomy History of total colectomy August 2022 S/P vein stripping Family History Father Cancer Lung cancer Mother CAD (coronary artery disease) Other Diabetes Heart disease Hypertension Denies family history of Stroke Social History Smoking and tobacco status: never smoked Second hand smoke exposure: No Smoking risk assessment/counseling performed?: No Alcohol intake: never Desire information about alcohol rehabilitation?: No Counseling given: No Substance/Drug Use: never Desire information about substance/drug rehabilitation?: No Counseling given: No Caregiver/support person: Yes Lives independently: No Household members: family Marital status: Single service: No Current occupational status: disabled Do you think of yourself as: Straight/Heterosexual Current gender identity: Male Physical Exam Const: EXAM LIMITATIONS: altered mental status GENERAL APPEARANCE: ill appearing and other (Nonresponsive, actively seizing) HENMT: COMMON NORMALS: normocephalic and Normal external nose present HEAD & SCALP: normocephalic NOSE: Normal external nose present and Normal nares present MOUTH: Abnormal oral and palatal mucosa present (Blood present) and tongue abnormal discolored Eye: ALIGNMENT: Yes alignment normal EOM: Yes Nystagmus present (Disorganized) Neck/C-Spine: GENERAL: Yes trachea midline Chest: CHEST: Yes Symmetrical chest wall rise Resp: EFFORT & INSPECTION: Yes respiratory distress, Yes labored and Yes grunting AUSCULTATION: rhonchi Cardio: COMMON NORMALS: regular rate and regular rhythm RATE: regular rate RHYTHM: regular rhythm GI: COMMON NORMALS: Normal to inspection, nondistended, normoactive bowel sounds present and Soft to palpation PALPATION: Yes Soft to palpation Neuro: KEMAR COMA SCALE: document GCS findings [place] coma scale eye opening: None [place] coma scale verbal response: None [place] coma scale motor response: None [place] coma scale total score: 3 SENSORIUM/ORIENTATION: Yes other (Nonresponsive) MOTOR EXAM: Abnormal muscle tone present COMATOSE PATIENT: No corneal reflex present, No response to noxious stimuli present and other (No gag reflex) Procedures Intubation Time out performed: No sedative: Etomidate Mg Given: 20 paralytic: Succinylcholine Mg Given: 150 Laryngoscope: fiber optic video scope ET Tube Size: 8 ET Tube Uncuffed: No Tube Secured Depth (cm): 24 Tube Secured Location: lips Tube Placement Confirmation: visualized tube passing through cords, equal breath sounds bilaterally and confirmation by capnometry Patient Tolerated Procedure: well and no complications Intubation Complications: none Course Consultations: Consultation #1: Usama Time: 19:50 Consultation #2: Haley Time: 20:14 Vital Signs: Vital signs: Vital Signs Temperature 98.6 F 04/18/23 00:00 Pulse Rate 78 04/18/23 02:30 Respiratory Rate 24 H 04/18/23 02:30 Blood Pressure 111/56 04/18/23 02:30 Pulse Oximetry 95 04/18/23 02:30 Oxygen Delivery Me thod Nasal Cannula 04/18/23 02:30 Oxygen Flow Rate 2 04/18/23 02:30 Fraction of Inspir ed Oxygen 30 04/17/23 18:00 MDM - Seizure MDM Narrative Medical decision making narrative: 52-year-old male presents with status epilepticus. He did not have intravenous access at the time of presentation. IO was obtained, and 2 mg of IV Versed was administered. Seizure activity slowed to a stop, but the patient remained nonresponsive, and respirations were agonal. He was oxygenating well with supplemental oxygen, but had wet airway sounds. He did not have a corneal reflex nor did he have a gag reflex at that point. Elective intubation was performed successfully without complication using RSI technique. He is placed on Versed and propofol, with a small dose of IV Keppra. Spoke with neurology. She knows him well. She requested lacosamide 200 mg IV in addition. This is after levels of Keppra and lacosamide have been drawn. On the ventilator, he seems quite stable at this point. Blood pressure is 114/60, sat durations are 99%. Respirations 16, rhythm is sinus at 75. His bicarbonate is 20. Initial blood gas showed a acidotic pH of 7.27, presumably from lactic acidosis related to seizure. His CK is only 53. Alcohol is negative. There was some difficulty placing a Saenz. This was achieved using a coud? catheter. The patient will go to the ICU. Spoke with hospitalist, who agrees to admission. Lab Data 04/17/23 04:51 04/17/23 04:51 Labs: Radiology Impressions Chest X-Ray 04/16/23 18:59 IMPRESSION: 1. Endotracheal tube in proper positioning. 2. OG tube terminates in the distal esophagus. This has intervally been repositioned into the stomach. Head CT 04/16/23 18:59 IMPRESSION: No acute intracranial abnormality. Abdomen X-Ray 04/16/23 19:36 IMPRESSION: OG tube terminates in the stomach. Laboratory Results WBC 19.5 10^3/uL (4.0-10.0) H 04/16/23 18:49 RBC 4.86 10^6/uL (4.1-5.3) 04/16/23 18:49 Hgb 15.8 g/dL (11.7-16.6) 04/16/23 18:49 Hct 47.2 % (42.0-52.0) 04/16/23 18:49 MCV 97.1 fl (80-94) H 04/16/23 18:49 MCH 32.5 pg (28.0-34.0) 04/16/23 18:49 MCHC 33.5 g/dL (30.0-36.0) 04/16/23 18:49 RDW 14.1 % (12.1-15.1) 04/16/23 18:49 Plt Count 303 10^3/cmm (130-400) 04/16/23 18:49 MPV 9.2 fL (7.4-10.4) 04/16/23 18:49 Neut % (Auto) 65.8 % 04/16/23 18:49 Lymph % (Auto) 20.9 % 04/16/23 18:49 [place] % (Auto) 8.1 % 04/16/23 18:49 Eos % (Auto) 3.4 % 04/16/23 18:49 Baso % (Auto) 0.5 % 04/16/23 18:49 Neut # (Auto) 12.83 10^3/uL (1.8-7.7) H 04/16/23 18:49 Lymph # (Auto) 4.1 10^3/uL (0.8-4.8) 04/16/23 18:49 [place] # (Auto) 1.6 10^3/uL (0.2-0.9) H 04/16/23 18:49 Eos # (Auto) 0.7 10^3/uL (0.0-0.8) 04/16/23 18:49 Baso # (Auto) 0.1 10^3/uL (0.0-0.1) 04/16/23 18:49 Nucleated RBC % (auto) 0 % 04/16/23 18:49 Nucleated RBCs # 0.0 /100WBC 04/16/23 18:49 PT 13.60 SECONDS (12.1-14.9) 04/16/23 18:49 INR 1.01 (0.8-1.2) 04/16/23 18:49 APTT 30.0 SECONDS (23.9-36.7) 04/16/23 18:49 Specimen Type Arterial 04/16/23 19:14 Sample Site Brachial, left 04/16/23 19:14 ABG pH 7.27 (7.35-7.45) L 04/16/23 19:14 ABG pCO2 39.9 mmHg (35-45) 04/16/23 19:14 ABG pO2 389.0 mmHg (80.0-100.0) H 04/16/23 19:14 ABG HCO3 18.2 mmol/L (22-26) L 04/16/23 19:14 ABG Base Excess -8.3 mmol/L (-2.0-2.0) L 04/16/23 19:14 Ricardo Test N/a 04/16/23 19:14 Hematocrit 46.8 % (42-52) 04/16/23 19:14 O2 Delivery Device Vent 04/16/23 19:14 FiO2 100.0 % 04/16/23 19:14 PEEP 8.0 cmH20 04/16/23 19:14 Project Drilling Engineer ID [email or web address] 04/16/23 19:14 Sodium 137 mmol/L (136-145) 04/16/23 18:49 Potassium 4.1 mmol/L (3.5-5.1) 04/16/23 18:49 Chloride 98 mmol/L (98-107) 04/16/23 18:49 Carbon Dioxide 20 mmol/L (22-29) L 04/16/23 18:49 Anion Gap 23.1 (5-19) H 04/16/23 18:49 BUN 13 mg/dL (6-20) 04/16/23 18:49 Creatinine 0.6 mg/dL (0.7-1.2) L 04/16/23 18:49 GFR Calculation 142.0 mL/min (90-130) H 04/16/23 18:49 Glucose 101 mg/dL (65-115) 04/16/23 18:49 Calculated Osmolality 284 mOsm/kg (285-295) L 04/16/23 18:49 Calcium 9.6 mg/dL (8.5-10.5) 04/16/23 18:49 Phosphorus 3.9 mg/dL (2.5-4.5) 04/16/23 18:49 Magnesium 2.2 mg/dL (1.7-2.3) 04/16/23 18:49 Total Bilirubin 0.4 mg/dL (0.15-1.2) 04/16/23 18:49 AST 22 U/L (0-40) 04/16/23 18:49 ALT 23 U/L (0-41) 04/16/23 18:49 Alkaline Phosphatase 141 U/L (40-130) H 04/16/23 18:49 Creatine Kinase 53 U/L (39-308) 04/16/23 18:49 C-Reactive Protein 17.1 mg/L (0.0-4.9) H 04/16/23 18:49 Total Protein 7.4 g/dL (6.6-8.7) 04/16/23 18:49 Albumin 4.8 g/dL (3.5-5.2) 04/16/23 18:49 Globulin 2.6 g/dL (1.3-4.6) 04/16/23 18:49 Urine Color Yellow (Yellow) 04/16/23 21:52 Urine Appearance Clear (CLEAR) 04/16/23 21:52 Urine pH 5 (5-7) 04/16/23 21:52 Ur Specific [place] 1.030 (1.005-1.030) 04/16/23 21:52 Urine Protein 1+ (Negative) H 04/16/23 21:52 Urine Glucose (UA) Norm (Normal) 04/16/23 21:52 Urine Ketones Negative (Negative) 04/16/23 21:52 Urine Blood Trace (Negative) H 04/16/23 21:52 Urine Nitrate Negative (Negative) 04/16/23 21:52 Urine Bilirubin Neg (Negative) 04/16/23 21:52 Urine Urobilinogen Norm mg/dL (Negative) 04/16/23 21:52 Ur Leukocyte Esterase 1+ (Negative) H 04/16/23 21:52 Urine RBC 0-4 /hpf (0-2) H 04/16/23 21:52 Urine WBC 5-10 /hpf (0-5) H 04/16/23 21:52 Ur Squamous Epith Cells 0-4 /hpf (0-5) H 04/16/23 21:52 Amorphous Sediment Not Reportable 04/16/23 21:52 Urine Bacteria 2+ /hpf (NONE) H 04/16/23 21:52 Urine Opiates Screen Negative ng/mL (Negative) 04/16/23 21:52 Ur Barbiturates Screen Positive ng/mL (Negative) H 04/16/23 21:52 Phenytoin 8.8 ug/mL (10-20) L 04/16/23 19:49 Ur Phencyclidine Scrn Negative ng/mL (Negative) 04/16/23 21:52 Ur Amphetamines Screen Negative ng/mL (Negative) 04/16/23 21:52 U Benzodiazepines Scrn Positive ng/mL (Negative) H 04/16/23 21:52 Urine Cocaine Screen Negative ng/mL (Negative) 04/16/23 21:52 U Marijuana (THC) Screen Negative ng/mL (Negative) 04/16/23 21:52 Ethyl Alcohol < 10 mg/dL (0-10) 04/16/23 18:49 Critical Care Time Critical Care Time: Critical Care Time: Yes Total Critical Care Time: 40 Attestation: This case had a high probability of a clinically significant, sudden, or life threatening deterioration of this patient's condition which required my full and direct attention, intervention and personal management. Time is independent of any procedures performed including intubation. Discharge Plan Discharge Patient Disposition: Admitted As Inpatient Admit Provider: Fidel De Leon Clinical Impression: Status epilepticus Condition: Critical Coding Level of Care Code ED Pharmaceutical Plant Operator for Antonio Avila
--- NOTE | 2023-04-16 20:45 | P.HP_ITS ---
Providers/Chief Complaint Admitting Physician: Fidel De Leon MD Primary Care Provider: Candi Latif, TRAVELING CLERK-C Chief Complaint: seizures History of Present Illness Jaziel Willis is a 52 year old male with history of developmental disorder as well as difficulty into control seizure disorder who presents to the emergency department with 2 seizures at home, 1 on arrival to the emergency department while still in the ambulance in the parking lot. He was given 2 mg of Ativan IM. Secondary to continued seizures he was intubated in the emergency department. I cannot get a history from the patient. The family is in transition out of the hospital and I was not able to visit with them. I did speak extensively with the emergency department physician who relates that he h as had no recent illness. He has frequent seizures, and had recently been in [place] in February with a similar episode. Review of Systems General: Reports: ROS unobtainable due to endotracheal tube Medications/Allergies Home Medications Medication Instructions Recorded Confirmed Last Taken Type Compression hose #1 ea 09/21/20 04/09/23 Unknown Rx Compression hose 07/13/21 04/09/23 Unknown History Diabetic Shoes with 3 pairs of #1 ea 03/23/22 04/09/23 Unknown Rx inserts phenytoin 50 mg chewable tablet 250 mg .Route Q8H 30 days #450 tabs 01/12/23 04/09/23 03/03/23 Rx (Dilantin Infatabs) lacosamide 200 mg tablet (Vimpat) 200 mg PO BID #60 tabs 03/31/23 04/09/23 Unknown Rx levetiracetam 1,000 mg tablet See Rx Instructions .Route 03/31/23 04/09/23 Unknown Rx (Keppra) .COMPLEX #120 tabs vujqnxsiovjrudp-babgskzoiqpkc-MD 1 5 ml PO .2 times day PRN allergy 04/09/23 04/09/23 Unknown Rx mg-2.5 mg-5 mg/5 mL oral solution symptoms #118 mL (Dimetapp DM Cold-Cough (PE)) chlorhexidine gluconate 0.12 % 15 ml buccal BID #473 mL 04/09/23 04/09/23 Unknown Rx mouthwash (Peridex) Allergies Allergy/AdvReac Type Severity Reaction Status Date / Time No Known Allergies Allergy Verified 04/09/23 11:29 PFSH Acute PFSH: Medical History Cellulitis of oral soft tissues Developmental disorder Endotracheally intubated Essential hypertension Frontal lobe epilepsy Generalized epilepsy Hypertension Intellectual disability Leukocytosis Morbid obesity Peripheral vascular disease Seizure Status epilepticus Venous stasis dermatitis Surgical History History of laparoscopic cholecystectomy History of total colectomy August 2022 S/P vein stripping Family History Father Cancer Lung cancer Mother CAD (coronary artery disease) Other Diabetes Heart disease Hypertension Denies family history of Stroke Social History Smoking and tobacco status: never smoked Second hand smoke exposure: No Smoking risk assessment/counseling performed?: No Alcohol intake: never Desire information about alcohol rehabilitation?: No Counseling given: No Substance/Drug Use: never Desire information about substance/drug rehabilitation?: No Counseling given: No Caregiver/support person: Yes Lives independently: No Household members: family Marital status: Single service: No Current occupational status: disabled Do you think of yourself as: Straight/Heterosexual Current gender identity: Male Vitals/I&O/Wt Last Vital Signs Resp 22 H 04/16/23 19:30 FiO2 50 04/16/23 19:30 Weight last 48 hrs Weight 115.4 kg Physical Exam 2 Narrative: General exam is an unabated white male, who appears adequately sedated with no physical evidence of seizure presently HEENT: Atraumatic and normocephalic. Endotracheal and oropharyngeal tubes are noted Neck is supple no lymphadenopathy thyromegaly Cardiovascular regular rate and rhythm without murmur Lungs clear no wheezing or crackles Abdomen is soft positive bowel sounds. Ostomy is noted exam kohler is noted Extremities no cyanosis clubbing or edema, venous stasis changes noted anterior shins Skin see findings above Neuro cannot be completed as patient is intubated and sedated. I had gone in the room earlier and he was yawning prior to sedation being increased in the emergency department. Data 04/16/23 18:49 04/16/23 18:49 Other Labs: Initial ABG demonstrated pH 7.27, PCO2 40, PO2 389 on the ventilator with an FiO2 of 100% and a PEEP of 8 LFTs are normal with the exception of alk phos slightly high at 141 Magnesium normal Calcium, phosphorus, albumin normal Dilantin level 8.8 Lacosamide and Keppra levels pending Alcohol level less than 10 Urinalysis is pending Head CT no acute changes Chest x-ray per my review no infiltrate, endotracheal tube noted, oropharyngeal tube will be repositioned as it is not on the stomach A blood culture was drawn Micro: Microbiology 04/16/23 19:23 Blood Culture - Preliminary Blood SPECIMEN COLLECTED 04/16/23 19:17 Blood Culture - Preliminary Blood SPECIMEN COLLECTED A&P Assessment and plan (1) Status epilepticus: Patient presented to the hospital with status epilepticus He received Ativan just prior to ER arrival On arrival to the emergency department he was intubated, and a Versed and propofol drip was started I will initiate fentanyl as well. At this point we will continue his Keppra, lacosamide, and Dilantin. I have clarified this with neurology who will see him tomorrow morning. He will stay intubated overnight He is already received a dose of Keppra and Vimpat in the emergency department. I will order his Dilantin as well. Plan is to try to wean ventilator tomorrow, with close monitoring of his neurologic status. Continue hydration CBC, CMP in the morning Seizure precautions (2) Leukocytosis: Appears to be secondary to seizure disorder, demargination Repeat CBC tomorrow Blood culture was already drawn. Hold antibiotics currently. Repeat x-ray tomorrow. Await urinalysis (3) Metabolic acidosis: Significant metabolic acidosis on arrival, likely secondary to seizure Repeat ABG after hydration Plan Respiratory failure secondary to seizure. Continue ventilator overnight. ABG and x-ray in the morning Full code currently Lovenox for DVT prophylaxis Protonix for GI prophylaxis Attestations Medical Necessity Statement*: Will require greater than 2 midnight stay for evaluation and treatment of respiratory failure, status epilepticus Critical Care Time: The high probability of a clinically significant, sudden or life threatening deterioration of the patient's [neurologic, pulmonary] system(s) required my full and direct attention, intervention and personal management. The critical care time is as shown. This time is in addition to time spent performing any reported procedures but includes the following: [x] Data and vital sign review and interpretation [x] Patient assessment, examination and intervention [x] Documentation [x] Medication orders and management Critical Care Time (min): 50 Coding Level of Care Code Critical Care >/= 30 minutes Critical care time (in minutes): 50 The high probability of a clinically significant, sudden or life threatening deterioration, as referenced in this documentation, required my full and direct attention, intervention and personal management. The critical care time shown is in addition to time spent performing any reported separately billable procedures and includes the following: [x] Data and vital sign review and interpretation [x ] Patient assessment, examination and intervention [x] Medication orders and management [x] Patient/Family updates as able [x] Care Coordination and Documentation. Diagnoses Status epilepticus G40.901 Leukocytosis D72.829 Metabolic acidosis E87.20
[2023-04-16] MEDS: lacosamide 200 MG in sodium chloride 0.9% 50 ML 120 MG IV (21:10)
[2023-04-16] MEDS: sodium chloride 0.9% 1,000 ML 150 ML IV ×2 (21:10→23:03)
[2023-04-16 21:29] LABS: Phenytoin Dilantin 8.8 ug/mL (10-20)
[2023-04-16] MEDS: propofol 1,000 MG/100 ML INJ 3.46 MG IV (21:46)
--- NOTE | 2023-04-16 22:05 | PC.NURSE ---
Report called to YUKI Alvarado in ICU. Pt being transferred to ICU room 4 with all paperwork and belongings.
[2023-04-16 22:10] LABS: Amphetamines Screen Urine Negative (Negative); Barbiturates Screen Urine Positive (Negative); Benzodiazepines Screen Urine Positive (Negative); Cocaine Screen Urine Negative (Negative); Opiate Screen Urine Negative (Negative); PCP Screen Urine Negative (Negative); THC Screen Urine Negative (Negative)
[2023-04-16 22:14] LABS: Add Urine Culture? Yes; Add Urine Microscopic? YES; Bacteria Urine 2+ /hpf; Bilirubin Urine Neg (Negative); Blood Urine Trace (Negative); Glucose Urine UA Norm (Normal); Ketones Urine Negative (Negative); Leukocyte Esterase Urine 1+ (Negative); Nitrate Urine Negative (Negative); Protein Urine 1+ (Negative); RBC Urine 0-4 /hpf (0-2); Squamous Epithelial Cell Urine 0-4 /hpf (0-5); Urine Appearance Clear (CLEAR); Urine Color Yellow (Yellow); Urobilinogen Urine Norm (Negative); pH Urine 5 (5-7)
[2023-04-16] MEDS: propofol 1,000 MG/100 ML INJ 17.31 MG IV (22:51)
[2023-04-16] MEDS: enoxaparin 40 mg/0.4 mL Syringe SUBCUT (22:53)
[2023-04-16] MEDS: PHENYTOIN 25 MG/ML 250 MG OG-TUBE (23:11)
[2023-04-16 23:25] LABS: ABG PCO2 43.6 mmHg (35-45); ABG PH Result 7.36 (7.35-7.45); Arterial Blood Gas Hematocrit 45.1 % (42-52); Base Excess ABG -1.4 mmol/L (-2.0-2.0); Blood Gas Allen Test Pos; Blood Gas Sample Site Radial, right; Blood Gas Sample Type Arterial; Blood Gas Tidal Volume 0.55; HCO3 ABG 24.3 mmol/L (22-26); Oxygen Device VENT; PO2 ABG 74.6 mmHg (80.0-100.0)
[2023-04-17] VITALS (77 sets, daily range): BP systolic 94–146; BP diastolic 49–102; PULSE 66–90; RESP 4–29; TEMP 36.1–39.2; O2SAT 93–100
[2023-04-17] MEDS: acetaminophen 325 mg Tablet 650 MG OG-TUBE (03:57)
[2023-04-17 04:29] LABS: ABG PCO2 38.7 mmHg (35-45); Arterial Blood Gas Hematocrit 44.1 % (42-52); Base Excess ABG -0.7 mmol/L (-2.0-2.0); Blood Gas Allen Test Pos; Blood Gas Sample Site Radial, left; Blood Gas Sample Type Arterial; Blood Gas Tidal Volume 0.55; HCO3 ABG 23.9 mmol/L (22-26); Oxygen Device VENT
[2023-04-17] MEDS: piperacillin-tazobactam 3.375 GM in sodium chloride 0.9% (plus) 50 ML IV ×3 (04:41→21:01)
--- NOTE | 2023-04-17 04:48 | PC.NURSE ---
0411- pt temp 102.6, dr mullins notified tylenol given and blood cultures drawn x2, new orders for antibiotics received.
[2023-04-17 04:56] LABS: Basophils # 0.1 10^3/uL (0.0-0.1); Basophils % 0.2 %; Eosinophils # 0.2 10^3/uL (0.0-0.8); Eosinophils % 0.6 %; Hematocrit 37.9 % (42.0-52.0); Hemoglobin 13.2 g/dL (11.7-16.6); Lymphocytes % 4.3 %; Mean Corpuscular HGB Conc 34.8 g/dL (30.0-36.0); Mean Corpuscular Hemoglobin 33.8 pg (28.0-34.0); Mean Corpuscular Volume 96.9 fl (80-94); Mean Platelet Volume 9.3 fL (7.4-10.4); Monocytes # 2.2 10^3/uL (0.2-0.9); Monocytes % 9.1 %; Neutrophils # 20.66 10^3/uL (1.8-7.7); Nucleated Red Blood Cells % 0 %; Platelet Count 182 10^3/cmm (130-400); Red Blood Count 3.91 10^6/uL (4.1-5.3); Red Cell Distribution Width 14.2 % (12.1-15.1); White Blood Count 24.3 10^3/uL (4.0-10.0)
[2023-04-17 05:14] LABS: Alanine Aminotransferase 15 U/L (0-41); Albumin Level 3.3 g/dL (3.5-5.2); Alkaline Phosphatase 86 U/L (40-130); Aspartate Amino Transferase 19 U/L (0-40); Blood Urea Nitrogen 11 mg/dL (6-20); Calcium 7.6 mg/dL (8.5-10.5); Carbon Dioxide 23 mmol/L (22-29); Chloride 105 mmol/L (98-107); Glomerular Filtration Rate 226.8 mL/min (90-130); Glucose 92 mg/dL (65-115); Magnesium 1.7 mg/dL (1.7-2.3); Osmolality Calculated 283 mOsm/kg (285-295); Sodium 137 mmol/L (136-145); Total Bilirubin 0.5 mg/dL (0.15-1.2); Total Protein 5.3 g/dL (6.6-8.7)
[2023-04-17 05:17] LABS: Anion Gap 12.5 (5-19); Potassium 3.5 mmol/L (3.5-5.1)
[2023-04-17] MEDS: PHENYTOIN 25 MG/ML 250 MG OG-TUBE ×2 (06:12→14:23)
[2023-04-17] MEDS: sodium chloride 0.9% 1,000 ML 150 ML IV ×2 (07:05→14:59)
--- NOTE | 2023-04-17 08:00 | PC.PHAR ---
pt unable to verify medications-pts mother verified the pts medications-pts mother faheem [phone] states the pt is not taking amitriptyline 25mg hs filled 12/28/22 90d/s,pantoprazole 40mg bid [id number] filled 01/05/23 42d/s or pepcid 20mg bid filled 03/08/23 30d/s-
[2023-04-17] MEDS: lacosamide 200 MG in sodium chloride 0.9% 50 ML 120 MG IV ×2 (08:48→21:16)
--- NOTE | 2023-04-17 08:53 | PC.NURSE ---
awaken responds to question by nodding head .. repositon at this time .. scds not placed due to dermitisis on both legs with sores.
[2023-04-17] MEDS: pantoprazole 40 mg SDV IVP (09:17)
--- NOTE | 2023-04-17 10:47 | PM.PN ---
Subjective Subjective: He is opening his eyes, sluggish but having response to voice, nods his head weakly. States he can hear me. Having pain in his back. Denies photophobia. Vitals/I&O/Wt Last Vital Signs Temp 97.6 F 04/17/23 08:00 Pulse 67 04/17/23 10:00 Resp 15 04/17/23 09:35 BP 105/72 04/17/23 10:00 Pulse Ox 98 04/17/23 10:00 O2 Del Method Mechanical Ventilation 04/17/23 05:33 FiO2 40 04/17/23 10:00 04/16/23 04/17/23 04/17/23 22:59 06:59 14:59 Intake Total 193.788 / 935.055 3389.425 / 1694.213 284.833 / 284.833 Output Total 550 / 550 Balance 193.788 / 193.788 950.425 / 1144.213 284.833 / 284.833 Weight last 48 hrs Weight 122 kg Weight 122 kg Weight 115.4 kg Physical Exam Const: GENERAL APPEARANCE: patient mechanically ventilated OTHER: Opens eyes to voice. Neck/C-Spine: COMMON NORMALS: no JVD Resp: COMMON NORMALS: normal respiratory effort and clear to auscultation bilaterally AUSCULTATION: clear to auscultation bilaterally Cardio: COMMON NORMALS: no JVD, regular rhythm, S1 normal heart sound present, S2 normal heart sound present and No murmurs present (Cardio) RHYTHM: regular rhythm HEART SOUNDS: S1 normal heart sound present and S2 normal heart sound present GI: COMMON NORMALS: Normal to inspection, nondistended, normoactive bowel sounds present, Soft to palpation and non-tender PALPATION: Yes Soft to palpation Extremity: COMMON NORMALS: no joint enlargement and no pedal edema Skin: COMMON NORMALS: no rashes or lesions noted GENERAL SKIN EXAM: no rashes or lesions noted Urinary Catheter Management: Coude: Cath Placed During This Visit: yes Reason for Continuing Indwelling Catheter: Accurate Measurement of Urinary Output in Critically Ill Patients Urinary Catheter Date of Insertion: 04/16/23 Urinary Catheter Time of Insertion: 21:49 Data 04/17/23 04:51 04/17/23 04:51 Micro: Microbiology 04/16/23 19:23 Blood Culture - Preliminary Blood SPECIMEN COLLECTED 04/16/23 19:17 Blood Culture - Preliminary Blood SPECIMEN COLLECTED A&P Assessment and plan (1) Status epilepticus: Resolved. He is waking up, generally weak, somewhat sluggish responses, but nods his head weakly in response to questions. No further seizure-like activity. Appears he did have aspiration event, fever this morning. On 40% FiO2 ventilator support. For now continue to monitor condition with mechanical ventilatory support, reassess to see if may be candidate for extubation later today depending on oxygenation, if no further recurrence of seizures. Pending neurology evaluation. Continue phenytoin, lacosamide, Keppra. Noted phenytoin level low 8.8. Noted pending lacosamide and Keppra levels. Prior Keppra level low back in July 2022. Seizure precautions. Magnesium 1.7, will give 2 g. Recheck magnesium. Decrease hydration Repeat CBC, BMP in the morning (2) Leukocytosis: He is currently waking up, denies photophobia, has not had recent illness as per report preceding seizure episodes, so far no additional suggestion of IMPLEMENTATION LEAD infection. Was suspected of having aspiration secondary to seizure episodes with fever 102.6. Currently on 40% FiO2. Monitor respiratory status due to anticipated aspiration pneumonitis, possible aspiration pneumonia. He is empirically on Zosyn for now. UA noted with 5 and 10 WBC, negative nitrate. 2+ bacteria. Not impressive, covered empirically with Zosyn. Follow-up urine culture. (3) Metabolic acidosis: Now resolving, bicarb noted 23, anion gap 12.5. Potassium 3.5. Plan Respiratory failure secondary to seizure. Continue ventilator overnight. ABG and x-ray in the morning Full code currently Lovenox for DVT prophylaxis Protonix for GI prophylaxis Attestations Medical Necessity Statement*: Continue admission for assessment management following status epilepticus, aspiration pneumonitis vs pneumonia. Coding Level of Care Code Critical Care >/= 30 minutes Critical care time (in minutes): 35 The high probability of a clinically significant, sudden or life threatening deterioration, as referenced in this documentation, required my full and direct attention, intervention and personal management. The critical care time shown is in addition to time spent performing any reported separately billable procedures and includes the following: [x] Data and vital sign review and interpretation [x] Patient assessment, examination and intervention [x] Medication orders and management [x] Patient/Family updates as able [x] Care Coordination and Documentation. Diagnoses Status epilepticus G40.901 Leukocytosis D72.829 Metabolic acidosis E87.20
[2023-04-17] MEDS: magnesium sulfate premix 2 GM/50 ML PIGGYBACK IV (11:17)
--- NOTE | 2023-04-17 13:33 | PM.CONSULT ---
Providers/Reason For Consult Consulting Physician/Specialty*: Dr. De Leon/hospitalist Reason for Consult*: Helping manage status epilepticus Attending Physician: Osmar Jimenez Primary Care Provider: NIRANJAN Drummond History of Present Illness History of Present Illness Jaziel Willis is a 52-year-old man who is well-known to me. 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 He has been having recurrent episodes of status epilepticus for years and his antiseizure medications do not seem to have a significant effect on reducing the chance of his status epilepticus. I was hoping to put in a vagal nerve stimulator but he has a colostomy until next year and he still going to the wound clinic. He is on Vimpat 200 mg twice daily, Keppra 2000 mg twice daily and phenytoin 250 mg 3 times a day.? His mother make sure that he is compliant. I just saw him on 03/31 and and I ordered Dilantin, lacosamide and Keppra levels. Only the Dilantin level was done and it was 9.8. He has status epilepticus every few months.? He was in status epilepticus and had to be intubated 03/03/2023 and was transferred to [facility].? His medications were changed to lacosamide 200 mg twice daily, Dilantin 250 mg 3 times daily and Keppra 2000 mg twice daily.? He was in status epilepticus/, July. I thought he would do better when he was started on the lacosamide because it had worked well for him previously but he has continued to have seizures despite this. His mother says that since he had gallbladder surgery and a colostomy he has constant diarrhea and that may be affecting his drug absorption. Unfortunately, although I ordered drug levels when I saw him a couple of weeks ago, only his Dilantin level was drawn. I have question compliance in the past. For example, in July 2020 he came in and status with a Dilantin level of 3 and his Keppra level was low at 16.6. Although he is having more frequent bouts of status epilepticus since he had colostomy, he was having an average of 2 episodes per year prior to that. He never gets a warning before he goes into status.? He started having seizures at the age of 9 months and then had a seizure about every 9 months throughout adulthood. He has had several episodes of status epilepticus that required intubation about every 6 months. His mom says he is happy all the time. He spends his time playing games on the computer. He is currently intubated in ICU. Review of Systems General: Reports: ROS unobtainable due to endotracheal tube Medications/Allergies Home Medications Medication Instructions Recorded Confirmed Last Taken Type Compression hose #1 ea 09/21/20 04/17/23 Unknown Rx Compression hose 07/13/21 04/17/23 Unknown History Diabetic Shoes with 3 pairs of #1 ea 03/23/22 04/17/23 Unknown Rx inserts lacosamide 200 mg tablet (Vimpat) 200 mg PO BID #60 tabs 03/31/23 04/17/23 Unknown Rx chlorhexidine gluconate 0.12 % 15 ml buccal BID #473 mL 04/09/23 04/17/23 Unknown Rx mouthwash (Peridex) lhtypsvgsneectx-[id number] 1 5 ml PO BID PRN allergy symptoms 04/17/23 04/17/23 Unknown History mg-2.5 mg-5 mg/5 mL oral solution (Dimetapp DM Cold-Cough (PE)) levetiracetam 1,000 mg tablet 2,000 mg PO BID 04/17/23 04/17/23 Unknown History (Keppra) phenytoin 50 mg chewable tablet 250 mg PO Q8H 04/17/23 04/17/23 Unknown History (Dilantin Infatabs) trazodone 100 mg tablet 100 mg PO BEDTIME 04/17/23 04/17/23 Unknown History Allergies Allergy/AdvReac Type Severity Reaction Status Date / Time No Known Allergies Allergy Verified 04/17/23 08:00 Current Medications Generic Name Dose Route Start Last Admin Trade Name Freq PRN Reason Stop Dose Admin Acetaminophen 650 mg 04/16/23 22:44 04/17/23 03:57 Acetaminophen 325 Mg Tablet OG-TUBE 650 mg Q6H PRN Administration MILD PAIN Enoxaparin Sodium 40 mg 04/16/23 22:44 04/16/23 22:53 Enoxaparin 40 Mg/0.4 Ml Syringe SUBCUT 40 mg Q24H OTIS Administration Midazolam HCl 100 mg/ Sodium 100 mls @ 0 mls/hr 04/16/23 19:00 04/17/23 12:20 Chloride IV 2 mg/hr .Q0M OTIS 2 mls/hr Titration Protocol Per Protocol Propofol 1,000 mg in 100 mls @ 0 mls/hr 04/16/23 19:00 04/17/23 03:51 Diprivan IV 0 mcg/kg/min .Q0M OTIS 0 mls/hr Titration Protocol Per Protocol Sodium Chloride 1,000 mls @ 75 mls/hr 04/16/23 19:00 04/17/23 07:05 Sodium Chloride 0.9% IV 150 mls/hr .[id number] OTIS Administration Lacosamide 200 mg/ Sodium 70 mls @ 120 mls/hr 04/17/23 08:00 04/17/23 09:32 Chloride IV Infused Q12H OTIS Infusion Fentanyl 1,000 mcg/ Sodium 100 mls @ 0 mls/hr 04/16/23 22:44 04/17/23 08:38 Chloride IV 100 mcg/hr .Q0M OTIS 10 mls/hr Administration Protocol Per Protocol Levetiracetam 2,000 mg/ Sodium 120 mls @ 440 mls/hr 04/17/23 08:00 04/17/23 08:37 Chloride IV Infused Q12H OTIS Infusion Piperacillin Sod/Tazobactam 50 mls @ 12.5 mls/hr 04/17/23 04:45 04/17/23 13:06 Sod 3.375 gm/ Sodium Chloride IV 12.5 mls/hr Q8H OTIS Administration Pantoprazole Sodium 40 mg 04/17/23 09:00 04/17/23 09:17 Pantoprazole 40 Mg Sdv IVP 40 mg DAILY OTIS Administration Phenytoin 250 mg 04/16/23 23:15 04/17/23 06:12 Phenytoin Oral Susp 25 Mg/Ml (Ml) OG-TUBE 250 mg Q8H OTIS Administration PFSH Acute PFSH: Medical History Cellulitis of oral soft tissues Developmental disorder Endotracheally intubated Essential hypertension Frontal lobe epilepsy Generalized epilepsy Hypertension Intellectual disability Leukocytosis Morbid obesity Peripheral vascular disease Seizure Status epilepticus Venous stasis dermatitis Surgical History History of laparoscopic cholecystectomy History of total colectomy August 2022 S/P vein stripping Family History Father Cancer Lung cancer Mother CAD (coronary artery disease) Other Diabetes Heart disease Hypertension Denies family history of Stroke Social History Smoking and tobacco status: never smoked Second hand smoke exposure: No Smoking risk assessment/counseling performed?: No Alcohol intake: never Desire information about alcohol rehabilitation?: No Counseling given: No Substance/Drug Use: never Desire information about substance/drug rehabilitation?: No Counseling given: No Caregiver/support person: Yes Lives independently: No Household members: family Marital status: Single service: No Current occupational status: disabled Do you think of yourself as: Straight/Heterosexual Current gender identity: Male Vitals/I&O/Wt Last Vital Signs Temp 97.6 F 04/17/23 08:00 Pulse 70 04/17/23 12:00 Resp 16 04/17/23 11:06 BP 133/70 04/17/23 12:00 Pulse Ox 98 04/17/23 11:30 O2 Del Method Mechanical Ventilation 04/17/23 05:33 FiO2 35 04/17/23 12:00 04/16/23 04/17/23 04/17/23 22:59 06:59 14:59 Intake Total 193.788 / 930.211 5388.425 / 1694.213 367.633 / 367.633 Output Total 550 / 550 Balance 193.788 / 193.788 950.425 / 1144.213 367.633 / 367.633 Weight last 48 hrs Weight 268 lb 15.423 oz Weight 268 lb 15.423 oz Weight 254 lb 6.615 oz Physical Exam Narrative: GEN: Pleasant very tall 52-year-old man with multiple mild dysmorphic features, intubated in ICU. He is on sedative medication but opens his eyes and makes eye contact. No myoclonic jerks. Mental status exam: He opened his eyes to voice. He regarded the examiner. He is drooling profusely. Cranial nerves he has full eye movements. He is chewing on the endotracheal tube mildly. Motor: No myoclonic jerks. He is in restraints. He is still sedated but his tone is unremarkable. HEENT: No signs of trauma. Neck: Supple. Chest: Clear to auscultation. Cardiovascular: S1 and S2 normal without murmur or gallop. Abdomen: His colostomy site is clean. Extremities: No signs of trauma. No deformities. Additional: His temperature is 102. Urinary Catheter Management: Coude: Cath Placed During This Visit: yes Reason for Continuing Indwelling Catheter: Accurate Measurement of Urinary Output in Critically Ill Patients Urinary Catheter Date of Insertion: 04/16/23 Urinary Catheter Time of Insertion: 21:49 Data 04/17/23 04:51 04/17/23 04:51 Micro: Microbiology 04/16/23 19:23 Blood Culture - Preliminary Blood SPECIMEN COLLECTED 04/16/23 19:17 Blood Culture - Preliminary Blood SPECIMEN COLLECTED A&P Assessment and plan (1) Generalized epilepsy: For the 2-year-old man with recurrent episodes of status epilepticus I think is important to get Keppra and lacosamide levels. His Dilantin level was not toxic and would indicate compliance, although it is a little lower than it was 2 weeks ago. I have not been relying on Dilantin for seizure control and there is good evidence that 2 anticonvulsants works better than 3. Unfortunately, his seizures are often managed by either [facility] or [facility] depending on where he is shipped from here when he goes into status. I talked about putting him on cenobamate when I visited with him and his mother a couple of weeks ago. She was hoping that he would not have any more problems and wanted to leave him on the same medications and see how it went. We can revisit that. Cenobamate would be a good choice to work on replacing Dilantin but the cost is difficult and we would need to send that prescription through the specialty pharmacy to see if we could get it covered. There is a standard titration starting with 12.5 mg to avoid dress syndrome. I can work on that with him as an outpatient. (2) Frontal lobe epilepsy: Consult Attestations Medical Necessity Statement: Recurrent status epilepticus requiring intubation. It looks like he is aspirated as he has fever. Time Spent in Patient Care: 60 minutes Coding Level of Care Code Acute Code for [facility] Fwd Diagnoses Generalized epilepsy G40.309 Frontal lobe epilepsy G40.802
--- NOTE | 2023-04-17 18:00 | PC.NURSE ---
Witnessed waste by SHARIF Petersen, ELLIN of Fentanyl, propofol and Versed.
--- NOTE | 2023-04-17 18:01 | PC.NURSE ---
wasted versed heparin and diprivan with witness Silviano Vaca RN
--- NOTE | 2023-04-17 18:02 | PC.NURSE ---
extubated prior and placed on nc at 3 l nc... oral care done colostomy bag changed
[2023-04-17] MEDS: enoxaparin 40 mg/0.4 mL Syringe SUBCUT (23:37)
[2023-04-17] MEDS: PHENYTOIN 25 MG/ML 250 MG PO (23:37)
[2023-04-18] VITALS (34 sets, daily range): BP systolic 99–121; BP diastolic 47–71; PULSE 65–82; RESP 18–27; TEMP 36.9–37; O2SAT 92–97
[2023-04-18] MEDS: sodium chloride 0.9% 1,000 ML 75 ML IV (03:23)
[2023-04-18] MEDS: piperacillin-tazobactam 3.375 GM in sodium chloride 0.9% (plus) 50 ML IV ×2 (04:20→14:24)
[2023-04-18 05:55] LABS: Basophils # 0.1 10^3/uL (0.0-0.1); Basophils % 0.2 %; Eosinophils # 0.2 10^3/uL (0.0-0.8); Eosinophils % 0.8 %; Hematocrit 37.1 % (42.0-52.0); Hemoglobin 12.8 g/dL (11.7-16.6); Lymphocytes # 1.5 10^3/uL (0.8-4.8); Lymphocytes % 6.2 %; Mean Corpuscular HGB Conc 34.5 g/dL (30.0-36.0); Mean Corpuscular Hemoglobin 33.8 pg (28.0-34.0); Mean Corpuscular Volume 97.9 fl (80-94); Monocytes # 1.5 10^3/uL (0.2-0.9); Monocytes % 6.1 %; Neutrophils # 21.41 10^3/uL (1.8-7.7); Nucleated Red Blood Cells % 0 %; Platelet Count 137 10^3/cmm (130-400); Red Blood Count 3.79 10^6/uL (4.1-5.3); Red Cell Distribution Width 14.2 % (12.1-15.1); White Blood Count 24.9 10^3/uL (4.0-10.0)
[2023-04-18 06:04] LABS: Anion Gap 11.5 (5-19); Blood Urea Nitrogen 7 mg/dL (6-20); Calcium 8.3 mg/dL (8.5-10.5); Carbon Dioxide 24 mmol/L (22-29); Chloride 107 mmol/L (98-107); Glomerular Filtration Rate 226.8 mL/min (90-130); Glucose 96 mg/dL (65-115); Magnesium 2.1 mg/dL (1.7-2.3); Osmolality Calculated 286 mOsm/kg (285-295); Potassium 3.5 mmol/L (3.5-5.1); Sodium 139 mmol/L (136-145)
[2023-04-18] MEDS: PHENYTOIN 25 MG/ML 250 MG PO ×2 (06:16→14:24)
[2023-04-18] MEDS: lacosamide 200 MG in sodium chloride 0.9% 50 ML 120 MG IV (08:49)
--- NOTE | 2023-04-18 08:55 | CTR_ITS ---
PROCEDURE INFORMATION: Exam: CT Abdomen And Pelvis Without Contrast Exam date and time: 04/18/2023 9:29 AM Age: 52 years old Clinical indication: Other: UTI, leukocytosis, fever, assess for hydro; Prior surgery; Surgery date: 6+ months; Surgery type: Colon TECHNIQUE: Imaging protocol: Computed tomography of the abdomen and pelvis without contrast. Radiation optimization: All CT scans at this facility use at least one of these dose optimization techniques: automated exposure control; mA and/or kV adjustment per patient size (includes targeted exams where dose is matched to clinical indication); or iterative reconstruction. REPORTING DATA: Count of CT and Cardiac NM exams in prior 12 months: This patient has received 6 known CTs and 0 known cardiac nuclear medicine studies in the 12 months prior to the current study. COMPARISON: CT abdomen pelvis wo con [id number] 09/07/2022 11:09 AM RADIATION DOSE METRICS: Total DLP (mGy-cm): 1102.01 FINDINGS: Lungs: There is ill-defined bilateral lower lobe opacity. Liver: The liver is normal. Gallbladder and bile ducts: The gallbladder is absent. There is no intrahepatic or extrahepatic bile duct dilation. Pancreas: The pancreas is unremarkable. Spleen: The spleen is mildly enlarged. Adrenal glands: The adrenal glands are unremarkable. Kidneys and ureters: There is no hydronephrosis or ureteral dilation. Nonobstructive stones are seen in both kidneys. Renal size and contour is normal bilaterally. There are simple cysts in the right kidney. There is mild symmetric bilateral perinephric edema, similar to the findings on 09/07/2022. Stomach and bowel: The stomach is decompressed, preventing meaningful evaluation of wall thickness. The small bowel is nondilated. Unremarkable right lower quadrant ileostomy. Subtotal colectomy. Unremarkable Rhina pouch. Appendix: Absent. Intraperitoneal space: There is no free air or significant intraperitoneal free fluid. Vasculature: The aorta is unremarkable. There is no aneurysm. The portal, splenic and superior mesenteric veins are patent. Lymph nodes: There is no lymphadenopathy in the retroperitoneum, mesentery, pelvis or inguinal regions. Urinary bladder: The urinary bladder is decompressed, preventing meaningful evaluation of wall thickness. The Saenz catheter is appropriately positioned with the bulb and tip within the bladder lumen. Reproductive: The prostate and seminal vesicles are unremarkable. Bones/joints: There is mild degenerative disease of both hips. The bony pelvis is intact. Soft tissues: Unremarkable right lower quadrant ileostomy. No peristomal hernia. The abdominal wall is otherwise intact. CT/CT kidney stone [id number] IMPRESSION: 1. Bilateral lower lung opacity suspicious for aspiration or infection. 2. Subtotal colectomy. Unremarkable right lower quadrant ileostomy. No sign of obstruction. 3. Bilateral nonobstructive nephrolithiasis. No hydronephrosis. 4. Incidental findings above. COMMENTS: Consistent with the [employer]'s Incidental Findings Committee white paper (J Am Lily Radiol 2018): Any incidental renal lesion less than 1 cm or classified as too small to characterize, or any incidental cystic renal lesion characterized as simple-appearing, is likely benign. No follow-up imaging is recommended for these lesions per consensus recommendations based on imaging criteria.
[2023-04-18] MEDS: pantoprazole 40 mg SDV IVP (09:08)
--- NOTE | 2023-04-18 11:51 | PM.DCS ---
Discharge Providers Date of Admission: 04/16/23 21:58 Date of Discharge: April 18, 2023 Attending Provider at Admission: Fidel De Leon MD Attending Provider at Discharge: Osmar Jimenez Primary Care Provider: NIRANJAN Drummond Diagnoses at Discharge Discharge Diagnosis (1) Generalized epilepsy: Status: Acute (2) Frontal lobe epilepsy: Status: Acute Reason for Visit Reason for Visit: seizures Hospital Course Hospital Course 52-year-old gentleman with developmental disorder, usually unable to provide history, but able to provide basic review of systems, giving brief answers, usually pleasant and interactive, with history of epilepsy, HTN, PVD, comorbidities was admitted due to continued seizures, and presentation with status epilepticus received Ativan, was intubated in ER, switch to IV Keppra, lacosamide. Continued on phenytoin, level found slightly low. Came out of status, waking up. Subsequently with fever, aspiration pneumonia. Received treatment with Zosyn. Following directions, maintaining oxygen, extubated successfully to small amount of nasal cannula support. Suspected UTI, gram-negative rods growing in urine. He is awake and alert, states I am ready to get out of here , denies any complaints. Maintaining oxygenation in the low 90s on room air. Kidney protocol CT without hydronephrosis. Incidentally noted nonobstructive bilateral nephrolithiasis. Lower lung opacities secondary to aspiration pneumonia. He was assessed by neurology as per discussion with his family they will visit further in office regarding attempting to get him started on cenobamate in place of Dilantin. Physical Exam Const: GENERAL APPEARANCE: patient mechanically ventilated OTHER: In good spirits. Neck/C-Spine: COMMON NORMALS: no JVD Resp: COMMON NORMALS: normal respiratory effort and clear to auscultation bilaterally AUSCULTATION: clear to auscultation bilaterally Cardio: COMMON NORMALS: no JVD, regular rhythm, S1 normal heart sound present, S2 normal heart sound present and No murmurs present (Cardio) RHYTHM: regular rhythm HEART SOUNDS: S1 normal heart sound present and S2 normal heart sound present GI: COMMON NORMALS: Normal to inspection, nondistended, normoactive bowel sounds present, Soft to palpation and non-tender PALPATION: Yes Soft to palpation Extremity: COMMON NORMALS: no joint enlargement and no pedal edema Skin: COMMON NORMALS: no rashes or lesions noted GENERAL SKIN EXAM: no rashes or lesions noted Urinary Catheter Management: Coude: Cath Placed During This Visit: yes Reason for Continuing Indwelling Catheter: Accurate Measurement of Urinary Output in Critically Ill Patients Urinary Catheter Date of Insertion: 04/16/23 Urinary Catheter Time of Insertion: 21:49 Discharge Data Studies Completed and Pending Completed Studies During Hospitalization Category Date Time Status CT head wo con* [id number] Stat Cat Scan 04/16/23 18:[address] kidney stone [id number] Routine Cat Scan 04/18/23 08:55 Completed XR abdomen 1V* [id number] Stat Exams 04/16/23 19:36 Completed XR chest 1V portable [id number] Stat Exams 04/16/23 18:59 Completed Pending at discharge Category Date Time Status Basic Metabolic Panel AM LABS Lab 04/19/23 04:00 Ordered Basic Metabolic Panel AM LABS Lab 04/20/23 04:00 Ordered Blood Culture Stat Lab 04/16/23 19:23 Results Complete Blood Count w/Auto AM LABS Lab 04/19/23 04:00 Ordered Complete Blood Count w/Auto AM LABS Lab 04/20/23 04:00 Ordered KEPPRA [Levetiracetam Immunoassy] Routine Lab 04/16/23 18:49 Received Lacosamide (Vimpat) Routine Lab 04/16/23 18:49 Received Sputum Culture and Gram Stain Stat Lab 04/16/23 21:53 Results Urine Culture Stat Lab 04/16/23 21:52 Results Radiology Impressions Chest X-Ray 04/16/23 18:59 IMPRESSION: 1. Endotracheal tube in proper positioning. 2. OG tube terminates in the distal esophagus. This has intervally been repositioned into the stomach. Head CT 04/16/23 18:59 IMPRESSION: No acute intracranial abnormality. Abdomen X-Ray 04/16/23 19:36 IMPRESSION: OG tube terminates in the stomach. Abdomen/Pelvis CT 04/18/23 08:55 IMPRESSION: 1. Bilateral lower lung opacity suspicious for aspiration or infection. 2. Subtotal colectomy. Unremarkable right lower quadrant ileostomy. No sign of obstruction. 3. Bilateral nonobstructive nephrolithiasis. No hydronephrosis. 4. Incidental findings above. COMMENTS: Consistent with the [employer]'s Incidental Findings Committee white paper (J Am Lily Radiol 2018): Any incidental renal lesion less than 1 cm or classified as too small to characterize, or any incidental cystic renal lesion characterized as simple-appearing, is likely benign. No follow-up imaging is recommended for these lesions per consensus recommendations based on imaging criteria. Laboratory Results WBC 24.9 10^3/uL (4.0-10.0) H 04/18/23 05:35 RBC 3.79 10^6/uL (4.1-5.3) L 04/18/23 05:35 Hgb 12.8 g/dL (11.7-16.6) 04/18/23 05:35 Hct 37.1 % (42.0-52.0) L 04/18/23 05:35 MCV 97.9 fl (80-94) H 04/18/23 05:35 MCH 33.8 pg (28.0-34.0) 04/18/23 05:35 MCHC 34.5 g/dL (30.0-36.0) 04/18/23 05:35 RDW 14.2 % (12.1-15.1) 04/18/23 05:35 Plt Count 137 10^3/cmm (130-400) 04/18/23 05:35 MPV 10.0 fL (7.4-10.4) 04/18/23 05:35 Neut % (Auto) 86.0 % 04/18/23 05:35 Lymph % (Auto) 6.2 % 04/18/23 05:35 [place] % (Auto) 6.1 % 04/18/23 05:35 Eos % (Auto) 0.8 % 04/18/23 05:35 Baso % (Auto) 0.2 % 04/18/23 05:35 Neut # (Auto) 21.41 10^3/uL (1.8-7.7) H 04/18/23 05:35 Lymph # (Auto) 1.5 10^3/uL (0.8-4.8) 04/18/23 05:35 [place] # (Auto) 1.5 10^3/uL (0.2-0.9) H 04/18/23 05:35 Eos # (Auto) 0.2 10^3/uL (0.0-0.8) 04/18/23 05:35 Baso # (Auto) 0.1 10^3/uL (0.0-0.1) 04/18/23 05:35 Nucleated RBC % (auto) 0 % 04/18/23 05:35 Nucleated RBCs # 0.0 /100WBC 04/18/23 05:35 PT 13.60 SECONDS (12.1-14.9) 04/16/23 18:49 INR 1.01 (0.8-1.2) 04/16/23 18:49 APTT 30.0 SECONDS (23.9-36.7) 04/16/23 18:49 Specimen Type Arterial 04/17/23 04:20 Sample Site Radial, left 04/17/23 04:20 ABG pH 7.40 (7.35-7.45) 04/17/23 04:20 ABG pCO2 38.7 mmHg (35-45) 04/17/23 04:20 ABG pO2 111.0 mmHg (80.0-100.0) H 04/17/23 04:20 ABG HCO3 23.9 mmol/L (22-26) 04/17/23 04:20 ABG Base Excess -0.7 mmol/L (-2.0-2.0) 04/17/23 04:20 Ricardo Test Pos 04/17/23 04:20 Hematocrit 44.1 % (42-52) 04/17/23 04:20 O2 Delivery Device Vent 04/17/23 04:20 FiO2 50.0 % 04/17/23 04:20 Tidal Volume 0.55 04/17/23 04:20 PEEP 8.0 cmH20 04/17/23 04:20 Applications Support Specialist ID Alewe 04/17/23 04:20 Sodium 139 mmol/L (136-145) 04/18/23 05:35 Potassium 3.5 mmol/L (3.5-5.1) 04/18/23 05:35 Chloride 107 mmol/L (98-107) 04/18/23 05:35 Carbon Dioxide 24 mmol/L (22-29) 04/18/23 05:35 Anion Gap 11.5 (5-19) 04/18/23 05:35 BUN 7 mg/dL (6-20) 04/18/23 05:35 Creatinine 0.4 mg/dL (0.7-1.2) L 04/18/23 05:35 GFR Calculation 226.8 mL/min (90-130) H 04/18/23 05:35 Glucose 96 mg/dL (65-115) 04/18/23 05:35 Calculated Osmolality 286 mOsm/kg (285-295) 04/18/23 05:35 Calcium 8.3 mg/dL (8.5-10.5) L 04/18/23 05:35 Phosphorus 3.9 mg/dL (2.5-4.5) 04/16/23 18:49 Magnesium 2.1 mg/dL (1.7-2.3) 04/18/23 05:35 Total Bilirubin 0.5 mg/dL (0.15-1.2) 04/17/23 04:51 AST 19 U/L (0-40) 04/17/23 04:51 ALT 15 U/L (0-41) 04/17/23 04:51 Alkaline Phosphatase 86 U/L (40-130) 04/17/23 04:51 Creatine Kinase 53 U/L (39-308) 04/16/23 18:49 C-Reactive Protein 17.1 mg/L (0.0-4.9) H 04/16/23 18:49 Total Protein 5.3 g/dL (6.6-8.7) L D 04/17/23 04:51 Albumin 3.3 g/dL (3.5-5.2) L 04/17/23 04:51 Globulin 2.0 g/dL (1.3-4.6) 04/17/23 04:51 Urine Color Yellow (Yellow) 04/16/23 21:52 Urine Appearance Clear (CLEAR) 04/16/23 21:52 Urine pH 5 (5-7) 04/16/23 21:52 Ur Specific [place] 1.030 (1.005-1.030) 04/16/23 21:52 Urine Protein 1+ (Negative) H 04/16/23 21:52 Urine Glucose (UA) Norm (Normal) 04/16/23 21:52 Urine Ketones Negative (Negative) 04/16/23 21:52 Urine Blood Trace (Negative) H 04/16/23 21:52 Urine Nitrate Negative (Negative) 04/16/23 21:52 Urine Bilirubin Neg (Negative) 04/16/23 21:52 Urine Urobilinogen Norm mg/dL (Negative) 04/16/23 21:52 Ur Leukocyte Esterase 1+ (Negative) H 04/16/23 21:52 Urine RBC 0-4 /hpf (0-2) H 04/16/23 21:52 Urine WBC 5-10 /hpf (0-5) H 04/16/23 21:52 Ur Squamous Epith Cells 0-4 /hpf (0-5) H 04/16/23 21:52 Amorphous Sediment Not Reportable 04/16/23 21:52 Urine Bacteria 2+ /hpf (NONE) H 04/16/23 21:52 Urine Opiates Screen Negative ng/mL (Negative) 04/16/23 21:52 Ur Barbiturates Screen Positive ng/mL (Negative) H 04/16/23 21:52 Phenytoin 8.8 ug/mL (10-20) L 04/16/23 19:49 Ur Phencyclidine Scrn Negative ng/mL (Negative) 04/16/23 21:52 Ur Amphetamines Screen Negative ng/mL (Negative) 04/16/23 21:52 U Benzodiazepines Scrn Positive ng/mL (Negative) H 04/16/23 21:52 Urine Cocaine Screen Negative ng/mL (Negative) 04/16/23 21:52 U Marijuana (THC) Screen Negative ng/mL (Negative) 04/16/23 21:52 Ethyl Alcohol < 10 mg/dL (0-10) 04/16/23 18:49 Vitals Last Vital Signs Temp 98.4 F 04/18/23 04:00 Pulse 71 04/18/23 10:00 Resp 19 H 04/18/23 10:00 BP 119/60 04/18/23 10:00 Pulse Ox 93 04/18/23 10:00 O2 Del Method Room Air 04/18/23 07:33 O2 Flow Rate 2 04/18/23 06:00 FiO2 30 04/18/23 10:00 Discharge Plan Discharge Patient Disposition: Home Condition: Critical Prescriptions: New levofloxacin 750 mg tablet 750 mg PO DAILY 7 Days Qty: 7 0RF Continued (DME) Compression hose 30/40 See Rx Instructions .Route .MEDSUPPLY Qty: 1 2RF Rx Instructions: Measure to fit A6531 (DME) Diabetic Shoes with 3 pairs of inserts See Rx Instructions .ROUTE .MEDSUPPLY Qty: 1 0RF Rx Instructions: As directed by HOME chlorhexidine gluconate [Peridex] 0.12 % mouthwash 15 ml buccal BID Qty: 473 2RF Rx Instructions: swish and spit lacosamide [Vimpat] 200 mg tablet 200 mg PO BID Qty: 60 5RF (DME) Compression hose See Rx Instructions Rx Instructions: Measure for size A6530 trazodone 100 mg tablet 100 mg PO BEDTIME Dilantin Infatabs 50 mg tablet,chewable 250 mg PO Q8H Keppra 1,000 mg tablet 2,000 mg PO BID Dimetapp DM Cold-Cough (PE) 1-2.5-5 mg/5 mL solution 5 ml PO BID PRN (Reason: allergy symptoms) Discharge Orders: Discharge Order (Routine); Ordered 04/18/23 Ordered By: Osmar Jimenez Referrals: Amy Forrester MD [Physician] - 1 week Candi Latif FNP-C [Primary Care Provider] - 4-7 days (Status epilepticus, aspiration pneumonia, UTI) Patient Instructions: Levofloxacin (By mouth), Urinary Tract Infection in Men (GEN), Aspiration Pneumonia (GEN), Epilepsy (GEN), Status Epilepticus (GEN) Activity Restrictions/Additional Instructions: Please complete antibiotic course for aspiration pneumonia as well as urine tract affection. Urinary culture is still pending. Please follow-up with your primary provider for reassessment of continued improvement and discuss final urine culture. Please follow-up with neurology for continued optimization of control of seizures and consideration of procuring cenobamate. Seek medical attention in case of any worsening or new concerning symptoms. Discharge Attestations Time Spent in Discharge Care*: greater than 30 min Status at Discharge: Cognitive status at discharge: moderately impaired cognition, Behavioral status at discharge: cooperative, Quality Metrics Clinical Quality Measures [ No reported AMI, CVA or VTE this stay] Coding Level of Care Code 54464 Total time (in minutes) for Discharge: 40 Diagnoses Generalized epilepsy G40.309 Frontal lobe epilepsy G40.802
[2023-04-18 17:14] LABS: Acinetobacter baumannii Not Detected (NOT DETECT); Bacteroides fragilis Not Detected (NOT DETECT); Citrobacter Not Detected (NOT DETECT); Cronobacter sakazakii Not Detected (NOT DETECT); Enterobacter cloacae complex Not Detected (NOT DETECT); Enterobacter non cloacae Not Detected (NOT DETECT); Fusobacterium necrophorum Not Detected (NOT DETECT); Fusobacterium nucleatum Not Detected (NOT DETECT); Haemophilus influenzae Not Detected (NOT DETECT); Klebsiella pneumoniae group Not Detected (NOT DETECT); Morganella morganii Not Detected (NOT DETECT); Neisseria meningitidis Not Detected (NOT DETECT); Pan Candida Not Detected (NOT DETECT); Pan Gram-Positive Not Detected (NOT DETECT); Proteus mirabilis Not Detected (NOT DETECT); Pseudomonas aeruginosa Not Detected (NOT DETECT); Salmonella Not Detected (NOT DETECT); Serratia Not Detected (NOT DETECT); Serratia marcescens Not Detected (NOT DETECT); Stenotrophomonas maltophilia Not Detected (NOT DETECT)
[2023-04-19 15:19] LABS: Levetiracetam Immunoassy 19.3 mcg/mL (6.0-46.0)
[2023-05-26 16:42] LABS: Lacosamide (Vimpat) 5.7
== END 2023-04-18 16:40 | disposition home or self-care (01) | DRG 100 ==
LOC: ER 19:22 → ICU 21:58
PROVIDERS: Admitting Provider Internal Medicine; Emergency Provider Emergency Medicine; PCP Nurse Practitioner; Visit Provider Internal Medicine
DX: G40.401 Other generalized epilepsy and epileptic syndromes, not intractable, with status epilepticus (principal); J69.0 Pneumonitis due to inhalation of food and vomit; J96.90 Respiratory failure, unspecified, unspecified whether with hypoxia or hypercapnia; N39.0 Urinary tract infection, site not specified; E87.20 Acidosis, unspecified; B96.20 Unspecified Escherichia coli [E. coli] as the cause of diseases classified elsewhere; I10 Essential (primary) hypertension; I73.9 Peripheral vascular disease, unspecified; Z79.891 Long term (current) use of opiate analgesic; F88 Other disorders of psychological development; E66.01 Morbid (severe) obesity due to excess calories; Z68.33 Body mass index [BMI] 33.0-33.9, adult; Z90.49 Acquired absence of other specified parts of digestive tract; Z93.3 Colostomy status
CPT/HCPCS: 31500; 36415; 36600; 51702; 70450; 71045; 74018; 74176; 80048; 80053; 80177; 80185; 80299; 80306; 80307; 81001; 82550; 82803; 83735; 84100; 85025; 85610; 85730; 86140; 87040; 87070; 87077; 87086; 87186; 87205; 87641; 94002; 94003; 94760; 94799; 96365; 96366; 96367; 96372; 96376; 99291; A4570; C9113; C9254; J0330; J1650; J1953; J2250; J2543; J2704; J3010; J3475; J3490; J7030

== ENCOUNTER → 2023-04-29 14:06 | Outpatient (BNVA) | payer MEDICARE, MEDICAID, SELFPAY | PROVIDERS: PCP Nurse Practitioner; Visit Provider Specialist | DX: G40.309 Generalized idiopathic epilepsy and epileptic syndromes, not intractable, without status epilepticus (principal); G40.802 Other epilepsy, not intractable, without status epilepticus; G40.901 Epilepsy, unspecified, not intractable, with status epilepticus; F79 Unspecified intellectual disabilities | CPT/HCPCS: 99215 ==

== ENCOUNTER 2023-05-04 10:37 | Outpatient (CLI) | payer MEDICARE, MEDICAID, SELFPAY ==
[2023-05-05 10:40] LABS: Levetiracetam Immunoassy 36.7 mcg/mL (6.0-46.0)
[2023-05-26 16:52] LABS: Lacosamide (Vimpat) 7.3
== END 2023-05-04 10:38 | disposition home or self-care (01) ==
LOC: LAB 10:40
PROVIDERS: PCP Nurse Practitioner; Visit Provider Specialist
DX: Z01.89 Encounter for other specified special examinations (principal)
CPT/HCPCS: 36415; 80177; 80299

== ENCOUNTER → 2023-06-07 13:04 | Outpatient (BNVA) | payer MEDICARE, MEDICAID, SELFPAY | PROVIDERS: PCP Nurse Practitioner; Visit Provider Thoracic Surgery (Cardiothoracic Vascular Surgery) | DX: I96 Gangrene, not elsewhere classified (principal); L97.829 Non-pressure chronic ulcer of other part of left lower leg with unspecified severity | CPT/HCPCS: 97597; 99213; A6212 ==

== ENCOUNTER → 2023-06-14 14:40 | Outpatient (BNVA) | payer MEDICARE, MEDICAID, SELFPAY | PROVIDERS: PCP Nurse Practitioner; Visit Provider Thoracic Surgery (Cardiothoracic Vascular Surgery) | DX: I96 Gangrene, not elsewhere classified (principal); L97.822 Non-pressure chronic ulcer of other part of left lower leg with fat layer exposed | CPT/HCPCS: 97597 ==

== ENCOUNTER → 2023-06-21 14:04 | Outpatient (BNVA) | payer MEDICARE, MEDICAID, SELFPAY | PROVIDERS: PCP Nurse Practitioner; Visit Provider Nurse Practitioner Family | DX: Z09 Encounter for follow-up examination after completed treatment for conditions other than malignant neoplasm (principal); Z87.2 Personal history of diseases of the skin and subcutaneous tissue | CPT/HCPCS: 99212 ==

== ENCOUNTER 2023-07-13 10:18 | Inpatient (IN) | payer MEDICARE, MEDICAID, SELFPAY ==
[2023-07-13] VITALS (56 sets, daily range): BP systolic 98–183; BP diastolic 49–86; PULSE 60–89; RESP 14–23; TEMP 36.8–37; O2SAT 93–100; BMI 31.7
[2023-07-13] MEDS: LORazepam 2 mg/mL INJ 1 mL IVP ×2 (10:23→14:10)
[2023-07-13] MEDS: etomidate 2 mg/mL INJ SDV 10 mL 20 MG IVP (10:24)
[2023-07-13] MEDS: vecuronium 10 mg SDV IVP (10:25)
[2023-07-13] MEDS: propofol 1,000 MG/100 ML INJ 19.6 MG IV (10:33)
--- NOTE | 2023-07-13 10:35 | XR_ITS ---
WS: [id number] Exam: XR chest 1V portable [id number] Date/Time of Exam: 07/13/2023 10:36 AM Reason For Exam: dyspnea/cough Comparison 04/16/2023. The lungs are clear and fully expanded. An ET tube is in place ending about 6 cm above the jim in good position. An enteric tube has been placed and ends in the body of the stomach. Normal cardiomedi astinal silhouette. No pleural effusions. Normal bony structures. IMPRESSION: 1. No acute cardiopulmonary finding. 2. ET tube and enteric tube both in satisfactory position.
[2023-07-13 10:50] LABS: ABG PCO2 52.9 mmHg (35-45); Alveolar-Arterial Oxygen Gradi 24.4 mmHg (5-10); Arterial Blood Gas Hematocrit 51.6 % (42-52); Base Excess ABG -11.5 mmol/L (-2.0-2.0); Blood Gas Allen Test Pos; Blood Gas Operator Identificat CAK; Blood Gas Sample Site Radial, right; Blood Gas Sample Type Arterial; Carboxyhemoglobin 1.7 %THgb (0.4-20.1); HGB O2 Sat 95.8 % (95-100); Ionized Calcium Level - ABG 1.2 mmol/L (1.1-1.4); Methemoglobin 0.4 % (0.4-1.5); Oxygen Device VENT; Oxygen Saturation ABG 97.9; PO2 FiO2 Ratio Arterial Blood 0; Potassium Level - ABG 3.9 mmol/L (3.5-5.0); Total Hemoglobin 16.8 g/dL (14-18)
[2023-07-13 10:51] LABS: ABG PH Result 7.14 (7.35-7.45)
[2023-07-13 11:02] LABS: Glucose Point of Care 110 mg/dL (70-110)
--- NOTE | 2023-07-13 11:10 | PC.PHAR ---
PHARMACY FAXED MED LIST 07/13/23. NONE OF THE CENOBAMATE PRESCRIPTIONS WERE FILLED.
--- NOTE | 2023-07-13 11:13 | PC.NURSE ---
PATIENT SEDATED AND INTUBATED
[2023-07-13 11:15] LABS: Add Urine Microscopic? NO; Charge for UA Resulting for Rev
[2023-07-13 11:20] LABS: Basophils # 0.1 10^3/uL (0.0-0.1); Basophils % 0.6 %; Eosinophils # 0.4 10^3/uL (0.0-0.8); Eosinophils % 4.3 %; Hematocrit 48.3 % (37-53); Lymphocytes # 2.1 10^3/uL (0.8-4.8); Lymphocytes % 22.3 %; Mean Corpuscular HGB Conc 33.7 g/dL (30-55); Mean Corpuscular Hemoglobin 33.1 pg (27-33); Mean Corpuscular Volume 98.2 fl (82-101); Mean Platelet Volume 9.5 fL (7.4-10.4); Monocytes # 0.5 10^3/uL (0.2-0.9); Monocytes % 5.4 %; Neutrophils # 6.26 10^3/uL (1.8-7.7); Nucleated Red Blood Cells % 0 %; Platelet Count 205 10^3/cmm (157-399); Red Blood Count 4.92 10^6/uL (3.85-5.65); Red Cell Distribution Width 13.9 % (12.1-15.1); White Blood Count 9.49 10^3/uL (3.29-11.43)
[2023-07-13 11:23] LABS: Bilirubin Urine Neg (Negative); Blood Urine Neg (Negative); Glucose Urine UA Norm (Normal); Ketones Urine Negative (Negative); Leukocyte Esterase Urine Negative (Negative); Nitrate Urine Negative (Negative); Protein Urine Neg (Negative); Urine Appearance Clear (CLEAR); Urine Color Yellow (Yellow); Urobilinogen Urine Norm (Negative); pH Urine 5 (5-7)
[2023-07-13 11:32] LABS: Alanine Aminotransferase 24 U/L (0-41); Albumin Level 4.5 g/dL (3.5-5.2); Alkaline Phosphatase 134 U/L (40-130); Aspartate Amino Transferase 34 U/L (0-40); Blood Urea Nitrogen 11 mg/dL (6-20); Calcium 9.2 mg/dL (8.5-10.5); Carbon Dioxide 19 mmol/L (22-29); Chloride 103 mmol/L (98-107); Glomerular Filtration Rate 118.9 mL/min (90-130); Glucose 121 mg/dL (65-115); Osmolality Calculated 291 mOsm/kg (285-295); Sodium 140 mmol/L (136-145); Total Bilirubin 0.4 mg/dL (0.15-1.2); Total Protein 7.5 g/dL (6.6-8.7)
[2023-07-13 11:33] LABS: Anion Gap 21.8 (5-19); Potassium 3.8 mmol/L (3.5-5.1)
--- NOTE | 2023-07-13 11:36 | W.ED.SEIZURE ---
HPI - Seizure General: Chief Complaint: Seizure Stated Complaint: Seizures Time Seen by Provider: 07/13/23 10:34 Source: patient Mode of arrival: EMS History of Present Illness: HPI Narrative: 52-year-old male with a known history of seizures and frequent recurrent status epilepticus presents emergency room actively seizing for last 45 minutes EMS had given him benzodiazepines in the field 2 mg of Versed which did not seem to stop his seizure. On arrival here he continues to seize he has bitten his tongue has some blood draining from his mouth. He is sats are in the 80s. He was emergently intubated see notes below. Normally does take Keppra for his seizures as well as Dilantin snap-on mate. MD complaint: seizure Seizure History: Yes Review of Systems General: Reports: ROS unobtainable due to medical condition and ROS unobtainable due to mental status PFS ED PFSH: Medical History Cellulitis of oral soft tissues Developmental disorder Endotracheally intubated Essential hypertension Frontal lobe epilepsy Generalized epilepsy Hypertension Intellectual disability Leukocytosis Morbid obesity Peripheral vascular disease Seizure Status epilepticus Venous stasis dermatitis Surgical History History of laparoscopic cholecystectomy History of total colectomy August 2022 S/P vein stripping Family History Father Cancer Lung cancer Mother CAD (coronary artery disease) Other Diabetes Heart disease Hypertension Denies family history of Stroke Social History Smoking and tobacco/nicotine status: never used tobacco/nicotine Second hand smoke exposure: No Alcohol intake: never Substance/Drug Use: never Adopted: No Caregiver/support person: Yes Lives independently: No Household members: family Housing: House Marital status: Single Number of children: 0 service: No Current occupational status: disabled Do you think of yourself as: Straight/Heterosexual Current gender identity: Male Physical Exam Resp: EFFORT & INSPECTION: Yes abnormal respiratory pattern AUSCULTATION: rhonchi Cardio: RATE: tachycardic GI: COMMON NORMALS: Soft to palpation and No hepatosplenomegaly present AUSCULTATION: Yes normoactive bowel sounds PALPATION: Yes Soft to palpation, No Tenderness to palpation present (GI), No Guarding due to palpation present (GI) and Yes No hepatosplenomegaly present Extremity: COMMON NORMALS: normal to inspection, capillary refill normal, no clubbing, cyanosis or edema, no calf tenderness and no pedal edema Procedures Intubation sedative: Etomidate Mg Given: 30 paralytic: Vecuronium Mg Given: 10 Laryngoscope: fiber optic video scope Assist Device Used: fiber optic device ET Tube Size: 8 ET Tube Uncuffed: No Tube Secured Depth (cm): 24 Tube Secured Location: teeth Tube Placement Confirmation: visualized tube passing through cords, equal breath sounds bilaterally, no breath sounds over epigastrium and confirmation by capnometry Patient Tolerated Procedure: well Intubation Complications: difficult intubation Course Vital Signs: Vital signs: Vital Signs Temperature 98.6 F 07/13/23 14:00 Pulse Rate 70 07/13/23 14:00 Respiratory Rate 16 07/13/23 14:00 Blood Pressure 131/85 07/13/23 14:00 Pulse Oximetry 99 07/13/23 14:00 Oxygen Delivery Me thod Mechanical Ventil ation 07/13/23 14:00 Oxygen Flow Rate 100 07/13/23 14:00 Fraction of Inspir ed Oxygen 30 07/13/23 14:00 MDM - Seizure MDM Narrative Medical decision making narrative: Patient admitted for status epilepticus emergently upon arrival. Started on propofol drip he was given Ativan 4 mg IO he had failed prehospital Ativan doses. He was started on a propofol drip. Family states he did take his Dilantin today with her not sure about the Keppra he was given a Keppra bolus still and level was low therapeutic. Will admit to the ICU discussed with hospitalist and neurology neurology will see him as well. Lab Data 07/13/23 11:00 07/13/23 11:00 Labs: Laboratory Results WBC 9.49 10^3/uL (3.29-11.43) 07/13/23 11:00 RBC 4.92 10^6/uL (3.85-5.65) 07/13/23 11:00 Hgb 16.30 g/dL (11.27-16.99) 07/13/23 11:00 Hct 48.3 % (37-53) 07/13/23 11:00 MCV 98.2 fl (82-101) 07/13/23 11:00 MCH 33.1 pg (27-33) H 07/13/23 11:00 MCHC 33.7 g/dL (30-55) 07/13/23 11:00 RDW 13.9 % (12.1-15.1) 07/13/23 11:00 Plt Count 205 10^3/cmm (157-399) 07/13/23 11:00 MPV 9.5 fL (7.4-10.4) 07/13/23 11:00 Neut % (Auto) 66.0 % 07/13/23 11:00 Lymph % (Auto) 22.3 % 07/13/23 11:00 [place] % (Auto) 5.4 % 07/13/23 11:00 Eos % (Auto) 4.3 % 07/13/23 11:00 Baso % (Auto) 0.6 % 07/13/23 11:00 Neut # (Auto) 6.26 10^3/uL (1.8-7.7) 07/13/23 11:00 Lymph # (Auto) 2.1 10^3/uL (0.8-4.8) 07/13/23 11:00 [place] # (Auto) 0.5 10^3/uL (0.2-0.9) 07/13/23 11:00 Eos # (Auto) 0.4 10^3/uL (0.0-0.8) 07/13/23 11:00 Baso # (Auto) 0.1 10^3/uL (0.0-0.1) 07/13/23 11:00 Nucleated RBC % (auto) 0 % 07/13/23 11:00 Nucleated RBCs # 0.0 /100WBC 07/13/23 11:00 Specimen Type Arterial 07/13/23 10:39 Sample Site Radial, right 07/13/23 10:39 ABG pH 7.14 (7.35-7.45) L* 07/13/23 10:39 ABG pCO2 52.9 mmHg (35-45) H 07/13/23 10:39 ABG pO2 107.0 mmHg (80.0-100.0) H 07/13/23 10:39 ABG PO2/FiO2 Ratio 0 07/13/23 10:39 ABG HCO3 18.0 mmol/L (22-26) L 07/13/23 10:39 ABG O2 Saturation 97.9 07/13/23 10:39 ABG Base Excess -11.5 mmol/L (-2.0-2.0) L 07/13/23 10:39 Ricardo Test Pos 07/13/23 10:39 A-a O2 Gradient 24.4 mmHg (5-10) H 07/13/23 10:39 Hematocrit 51.6 % (42-52) 07/13/23 10:39 Hgb O2 Saturation 95.8 % (95-100) 07/13/23 10:39 Carboxyhemoglobin 1.7 %THgb (0.4-20.1) 07/13/23 10:39 Methemoglobin 0.4 % (0.4-1.5) 07/13/23 10:39 Total Hemoglobin 16.8 g/dL (14-18) 07/13/23 10:39 Sodium 143.0 mmol/L (131-143) 07/13/23 10:39 Potassium 3.9 mmol/L (3.5-5.0) 07/13/23 10:39 Glucose 129.0 mg/dL (70-115) H 07/13/23 10:39 Ionized Calcium 1.2 mmol/L (1.1-1.4) 07/13/23 10:39 O2 Delivery Device Vent 07/13/23 10:39 FiO2 50.0 % 07/13/23 10:39 Tidal Volume 0.50 07/13/23 10:39 PEEP 8.0 cmH20 07/13/23 10:39 Refinery Operator Coking ID Cak 07/13/23 10:39 Sodium 140 mmol/L (136-145) 07/13/23 11:00 Potassium 3.8 mmol/L (3.5-5.1) 07/13/23 11:00 Chloride 103 mmol/L (98-107) 07/13/23 11:00 Carbon Dioxide 19 mmol/L (22-29) L 07/13/23 11:00 Anion Gap 21.8 (5-19) H 07/13/23 11:00 BUN 11 mg/dL (6-20) 07/13/23 11:00 Creatinine 0.7 mg/dL (0.7-1.2) 07/13/23 11:00 GFR Calculation 118.9 mL/min (90-130) 07/13/23 11:00 Glucose 121 mg/dL (65-115) H 07/13/23 11:00 POC Glucose 110 mg/dL (70-110) 07/13/23 10:58 Calculated Osmolality 291 mOsm/kg (285-295) 07/13/23 11:00 Calcium 9.2 mg/dL (8.5-10.5) 07/13/23 11:00 Magnesium 2.4 mg/dL (1.7-2.3) H 07/13/23 11:00 Total Bilirubin 0.4 mg/dL (0.15-1.2) 07/13/23 11:00 AST 34 U/L (0-40) 07/13/23 11:00 ALT 24 U/L (0-41) 07/13/23 11:00 Alkaline Phosphatase 134 U/L (40-130) H 07/13/23 11:00 Total Protein 7.5 g/dL (6.6-8.7) 07/13/23 11:00 Albumin 4.5 g/dL (3.5-5.2) 07/13/23 11:00 Globulin 3.0 g/dL (1.3-4.6) 07/13/23 11:00 Urine Color Yellow (Yellow) 07/13/23 10:43 Urine Appearance Clear (CLEAR) 07/13/23 10:43 Urine pH 5 (5-7) 07/13/23 10:43 Ur Specific [place] 1.020 (1.005-1.030) 07/13/23 10:43 Urine Protein Neg (Negative) 07/13/23 10:43 Urine Glucose (UA) Norm (Normal) 07/13/23 10:43 Urine Ketones Negative (Negative) 07/13/23 10:43 Urine Blood Neg (Negative) 07/13/23 10:43 Urine Nitrate Negative (Negative) 07/13/23 10:43 Urine Bilirubin Neg (Negative) 07/13/23 10:43 Urine Urobilinogen Norm mg/dL (Negative) 07/13/23 10:43 Ur Leukocyte Esterase Negative (Negative) 07/13/23 10:43 Phenytoin 11.6 ug/mL (10-20) 07/13/23 11:00 All radiology interpretation(s) finalized by discharge Discharge Plan Discharge Patient Disposition: Admitted As Inpatient Admit Provider: Fidel De Leon Clinical Impression: Status epilepticus, Intellectual disability, Generalized epilepsy Condition: Stable Coding Level of Care Code ED Curriculum Specialist for Antonio Avila
[2023-07-13] MEDS: levETIRAcetam 1,000 MG/100 ML PREMIX 400 MG IV (11:58)
[2023-07-13 12:23] LABS: Phenytoin Dilantin 11.6 ug/mL (10-20)
[2023-07-13] MEDS: piperacillin-tazobactam 3.375 GM in sodium chloride 0.9% (plus) 50 ML IV ×2 (12:32→19:14)
[2023-07-13 13:01] LABS: ABG PCO2 41.2 mmHg (35-45); ABG PH Result 7.36 (7.35-7.45); Alveolar-Arterial Oxygen Gradi 10.5 mmHg (5-10); Arterial Blood Gas Hematocrit 47.5 % (42-52); Blood Gas Allen Test Pos; Blood Gas Operator Identificat CAK; Blood Gas Sample Site Radial, left; Blood Gas Sample Type Arterial; Carboxyhemoglobin 1.8 %THgb (0.4-20.1); HCO3 ABG 23.4 mmol/L (22-26); HGB O2 Sat 95.4 % (95-100); Ionized Calcium Level - ABG 1.2 mmol/L (1.1-1.4); Methemoglobin 0.3 % (0.4-1.5); Oxygen Device VENT; Oxygen Saturation ABG 97.4; PO2 ABG 83.3 mmHg (80.0-100.0); PO2 FiO2 Ratio Arterial Blood 0; Potassium Level - ABG 3.9 mmol/L (3.5-5.0); Total Hemoglobin 15.5 g/dL (14-18)
--- NOTE | 2023-07-13 13:16 | PM.HP ---
Providers/Chief Complaint Admitting Physician: Fidel De Leon MD Primary Care Provider: Candi Latif, IVANA-Estrella Chief Complaint: Seizures History of Present Illness Jaziel Willis is a 52 year old male with history of developmental delay and seizure disorder with frequent breakthrough seizures who presents with history of seizures starting around 9 AM this morning occurring in multiple waves. There is been no recent change in his medication. Family is continued his lacosamide, Dilantin, Keppra. They report he has not on cenobate as this was not tolerated. No recent fever, cough, head injury, other illness. In the emergency department he was seizing, unable to protect his airway and he was sedated, intubated and placed on propofol. Review of Systems General: Reports: ROS unobtainable due to mental status Medications/Allergies Home Medications Medication Instructions Recorded Confirmed Last Taken Type Compression hose #1 ea 09/21/20 07/13/23 Unknown Rx Compression hose 07/13/21 07/13/23 Unknown History Diabetic Shoes with 3 pairs of #1 ea 03/23/22 07/13/23 Unknown Rx inserts lacosamide 200 mg tablet (Vimpat) 200 mg PO BID #60 tabs 03/31/23 07/13/23 Unknown Rx levetiracetam 1,000 mg tablet 2,000 mg PO BID 04/17/23 07/13/23 Unknown History (Keppra) phenytoin 50 mg chewable tablet 250 mg PO Q8H 04/17/23 07/13/23 Unknown History (Dilantin Infatabs) cenobamate 100 mg tablet 100 mg PO DAILY 2 weeks #14 tabs 04/29/23 07/13/23 Unknown Rx cenobamate 12.5 mg (14)-25 mg (14) See Rx Instructions PO PER PKG DIR 04/29/23 07/13/23 Unknown Rx tablets in a dose pack #28 ea cenobamate 150 mg (14)-200 mg (14) See Rx Instructions PO PER PKG DIR 04/29/23 07/13/23 Unknown Rx tablets in a dose pack #28 ea cenobamate 200 mg tablet 200 mg PO DAILY #30 tabs 04/29/23 07/13/23 Unknown Rx cenobamate 50 mg (14)-100 mg (14) See Rx Instructions PO PER PKG DIR 04/29/23 07/13/23 Unknown Rx tablets in a dose pack #28 ea silver 1 applic topical DAILY #89 mL 06/02/23 07/13/23 Unknown Rx trazodone 100 mg tablet 100 mg PO BEDTIME #30 tabs 06/14/23 07/13/23 Unknown Rx chlorhexidine gluconate 0.12 % 15 ml buccal BID #473 mL 06/24/23 07/13/23 Unknown Rx mouthwash (Peridex) Allergies Allergy/AdvReac Type Severity Reaction Status Date / Time No Known Allergies Allergy Verified 06/24/23 10:39 PFSH Acute PFSH: Medical History Cellulitis of oral soft tissues Developmental disorder Endotracheally intubated Essential hypertension Frontal lobe epilepsy Generalized epilepsy Hypertension Intellectual disability Leukocytosis Morbid obesity Peripheral vascular disease Seizure Status epilepticus Venous stasis dermatitis Surgical History History of laparoscopic cholecystectomy History of total colectomy August 2022 S/P vein stripping Family History Father Cancer Lung cancer Mother CAD (coronary artery disease) Other Diabetes Heart disease Hypertension Denies family history of Stroke Social History Smoking and tobacco/nicotine status: never used tobacco/nicotine Second hand smoke exposure: No Alcohol intake: never Substance/Drug Use: never Adopted: No Caregiver/support person: Yes Lives independently: No Household members: family Housing: House Marital status: Single Number of children: 0 service: No Current occupational status: disabled Do you think of yourself as: Straight/Heterosexual Current gender identity: Male Vitals/I&O/Wt Last Vital Signs Temp 98.2 F 07/13/23 10:36 Pulse 69 07/13/23 13:00 Resp 16 07/13/23 13:00 BP 123/78 07/13/23 13:00 Pulse Ox 100 07/13/23 13:00 O2 Del Method Mechanical Ventilation 07/13/23 13:00 FiO2 40 07/13/23 10:55 07/12/23 07/13/23 07/13/23 22:59 06:59 14:59 Intake Total 167.530 / 167.530 Balance 167.530 / 167.530 Weight last 48 hrs Weight 108.862 kg Physical Exam Narrative: General exam is an intubated and sedated male, who has no shaking currently. There is some blood in the suction on the wall consistent with history from the emergency department that he had bitten his tongue with his seizures. HEENT: Pupils equally round. Endotracheal tube is noted Neck is supple no lymphadenopathy thyromegaly Cardiovascular regular rate and rhythm, no murmur Lungs coarse bilaterally Abdomen is soft with positive bowel sounds. Ostomy is noted with stool. Midline scar noted. Positive bowel sounds. No obvious organomegaly exam is deferred Extremities no cyanosis clubbing or edema, cap refill brisk Skin no rash Neuro: Intubated and sedated Data 07/13/23 11:00 07/13/23 11:00 Other Labs: ABG demonstrates pH 7.36, PCO2 41, PO2 83 on the ventilator LFTs are normal with exception of alk phos 134 Calcium, albumin is normal I have ordered a magnesium Urinalysis negative Dilantin level 11.6, Keppra level pending Chest x-ray reviewed by me demonstrates no obvious infiltrate acutely, appropriate to positions Micro: Microbiology 07/13/23 11:06 Blood Culture - Preliminary Blood SPECIMEN COLLECTED 07/13/23 11:00 Blood Culture - Preliminary Blood SPECIMEN COLLECTED A&P Assessment and plan (1) Status epilepticus: Patient presents with status epilepticus. He was given 1 g of Keppra, Ativan 2 mg per the emergency department physician He has been intubated and sedated with propofol secondary to his status and inability to protect his airway We will continue his home medications, and will wait recommendations per neurology which will be consulted Monitor for any recurrent seizures, Ativan as needed CBC, CMP magnesium, chest x-ray, ABG in the morning (2) Acute respiratory failure: Patient with acute respiratory failure, inability to protect his airway secondary to acute status epilepticus Intubated in the emergency department Sedation with propofol and fentanyl Repeat chest x-ray tomorrow High risk for aspiration Wean ventilator as tolerated Possible extubation tomorrow (3) Aspiration pneumonitis: Very likely has aspiration pneumonitis Zosyn IV initiated Follow closely Plan Other medical problems as outlined in past medical history full code High risk patient, with high risk for , decompensation and requiring mechanical ventilation Attestations Medical Necessity Statement*: Will need greater than 2 midnight stay for evaluation and treatment of status epilepticus and respiratory failure Critical Care Time: The high probability of a clinically significant, sudden or life threatening deterioration of the patient's [respiratory, neurologic] system(s) required my full and direct attention, intervention and personal management. The critical care time is as shown. This time is in addition to time spent performing any reported procedures but includes the following: [x] Data and vital sign review and interpretation [x] Patient assessment, examination and intervention [x] Documentation [x] Medication orders and management Critical Care Time (min): 54 Coding Level of Care Code Critical Care >/= 30 minutes Critical care time (in minutes): 54 The high probability of a clinically significant, sudden or life threatening deterioration, as referenced in this documentation, required my full and direct attention, intervention and personal management. The critical care time shown is in addition to time spent performing any reported separately billable procedures and includes the following: [x] Data and vital sign review and interpretation [x] Patient assessment, examination and intervention [x] Medication orders and management [x] Patient/Family updates as able [x] Care Coordination and Documentation. Diagnoses Status epilepticus G40.901 Acute respiratory failure J96.00 Aspiration pneumonitis J69.0
--- NOTE | 2023-07-13 13:26 | P.CONIM_ITS ---
Providers/Reason For Consult Consulting Physician/Specialty*: Ar Atkinson MD neurology and epilepsy Reason for Consult*: Intractable epilepsy and status epilepticus Attending Physician: Fidel De Leon MD Primary Care Provider: NIRANJAN Drummond History of Present Illness History of Present Illness Jaziel Willis is a 52 year old male with a history of intractable epilepsy since childhood and developmental delay. According to the family the patient was at home and after giving the patient his Dilantin he began experience staring's with altered awareness followed by loss of consciousness with generalized tonic-clonic activity. The family stated that they gave him 1 mg of Ativan and contacted EMS and the patient was brought to [facility] emerg ency room via EMS service. Patient was intubated and given IV Keppra and placed on propofol drip. Seizure stabilized and patient scheduled to be admitted to the intensive care unit. Currently the patient still in the emergency room. According to the family who is at the patient's bedside in the emergency department room #14, the patient experiences seizures every few months. The family stated that this is typical for the patient's seizures. Patient is currently on Keppra, Vimpat and Dilantin at home. The family is not sure of the exact dose the patient is taking. I asked the nurse caring for the patient in the emergency department room 14 to speak with pharmacy to determine what dose of Keppra, Vimpat and Dilantin the patient takes at home and give the medications intravenously since the patient is intubated. Metabolic lab performed on 07/13/2020 for CBC is contrary comprehensive metabolic panel and ABGs revealed pH of 7.14 with PCO2 of 52.9. O2 107 ABG bicarb was decreased. Head CT scan performed on previous ER visit on 04/16/2023 reported to be negative. Past medical history: Intractable epilepsy with recurrent seizures Developmental delay Drug allergies: No known drug allergies Home medications: Vimpat 200 mg p.o. twice daily? Keppra 2000 mg p.o. twice daily? Dilantin 250 mg p.o. every 8 hour? Trazodone 100 mg p.o. nightly? Past medications: Cenobamate Habits: None Family history: Negative for epilepsy Social history: The patient lives with the family Review of Systems General: Reports: 10 or more systems reviewed and unremarkable except in HPI and below and Other (Review of systems obtained per family) Medications/Allergies Home Medications Medication Instructions Recorded Confirmed Last Taken Type Compression hose #1 ea 09/21/20 07/13/23 Unknown Rx Compression hose 07/13/21 07/13/23 Unknown History Diabetic Shoes with 3 pairs of #1 ea 03/23/22 07/13/23 Unknown Rx inserts lacosamide 200 mg tablet (Vimpat) 200 mg PO BID #60 tabs 03/31/23 07/13/23 Unknown Rx levetiracetam 1,000 mg tablet 2,000 mg PO BID 04/17/23 07/13/23 Unknown History (Keppra) phenytoin 50 mg chewable tablet 250 mg PO Q8H 04/17/23 07/13/23 Unknown History (Dilantin Infatabs) cenobamate 100 mg tablet 100 mg PO DAILY 2 weeks #14 tabs 04/29/23 07/13/23 Unknown Rx cenobamate 12.5 mg (14)-25 mg (14) See Rx Instructions PO PER PKG DIR 04/29/23 07/13/23 Unknown Rx tablets in a dose pack #28 ea cenobamate 150 mg (14)-200 mg (14) See Rx Instructions PO PER PKG DIR 04/29/23 07/13/23 Unknown Rx tablets in a dose pack #28 ea cenobamate 200 mg tablet 200 mg PO DAILY #30 tabs 04/29/23 07/13/23 Unknown Rx cenobamate 50 mg (14)-100 mg (14) See Rx Instructions PO PER PKG DIR 04/29/23 07/13/23 Unknown Rx tablets in a dose pack #28 ea silver 1 applic topical DAILY #89 mL 06/02/23 07/13/23 Unknown Rx trazodone 100 mg tablet 100 mg PO BEDTIME #30 tabs 06/14/23 07/13/23 Unknown Rx chlorhexidine gluconate 0.12 % 15 ml buccal BID #473 mL 06/24/23 07/13/23 Unknown Rx mouthwash (Peridex) Allergies Allergy/AdvReac Type Severity Reaction Status Date / Time No Known Allergies Allergy Verified 06/24/23 10:39 Current Medications Generic Name Dose Route Start Last Admin Trade Name Freq PRN Reason Stop Dose Admin Propofol 1,000 mg in 100 mls @ 0 mls/hr 07/13/23 10:30 07/13/23 11:22 Diprivan IV 50 mcg/kg/min .Q0M OTIS 32.66 mls/hr Titration Protocol Per Protocol PFSH Acute PFSH: Medical History Cellulitis of oral soft tissues Developmental disorder Endotracheally intubated Essential hypertension Frontal lobe epilepsy Generalized epilepsy Hypertension Intellectual disability Leukocytosis Morbid obesity Peripheral vascular disease Seizure Status epilepticus Venous stasis dermatitis Surgical History History of laparoscopic cholecystectomy History of total colectomy August 2022 S/P vein stripping Family History Father Cancer Lung cancer Mother CAD (coronary artery disease) Other Diabetes Heart disease Hypertension Denies family history of Stroke Social History Smoking and tobacco/nicotine status: never used tobacco/nicotine Second hand smoke exposure: No Alcohol intake: never Substance/Drug Use: never Adopted: No Caregiver/support person: Yes Lives independently: No Household members: family Housing: House Marital status: Single Number of children: 0 service: No Current occupational status: disabled Do you think of yourself as: Straight/Heterosexual Current gender identity: Male Vitals/I&O/Wt Last Vital Signs Temp 98.2 F 07/13/23 10:36 Pulse 69 07/13/23 13:00 Resp 16 07/13/23 13:00 BP 123/78 07/13/23 13:00 Pulse Ox 100 07/13/23 13:00 O2 Del Method Mechanical Ventilation 07/13/23 13:00 FiO2 40 07/13/23 10:55 07/12/23 07/13/23 07/13/23 22:59 06:59 14:59 Intake Total 167.530 / 167.530 Balance 167.530 / 167.530 Weight last 48 hrs Weight 240 lb Physical Exam Narrative: The patient is currently intubated on propofol. Pupils 4 mm reactive to light. Motor testing difficult to assess secondary to sedation. Cranial nerves II through XII revealed no obvious facial weakness. Deep tendon reflex revealed plantar responses bilaterally. There was no clonus. Sensory examination was difficult to assess secondary to sedation. Patient intubated. Throat reported to be clear. Lungs clear. Heart regular rhythm and rate. Extremities were negative for cyanosis. Data 07/13/23 11:00 07/13/23 11:00 Micro: Microbiology 07/13/23 11:06 Blood Culture - Preliminary Blood SPECIMEN COLLECTED 07/13/23 11:00 Blood Culture - Preliminary Blood SPECIMEN COLLECTED A&P Assessment and plan (1) Status epilepticus: Impression: 1. Status epilepticus 07/13/2023 requiring intubation and sedation with propofol 2. 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 Developmental delay Plan: 1. Recommend continuing IV Keppra, and change oral Dilantin and Vimpat to IV administration at same home dose 2. Recommend obtaining trough Keppra level, Dilantin level, and Vimpat level and albumin level on 07/14/2023 3. Recommend Ativan 1 to 2 mg IV every 6 hours as needed for seizures lasting greater than 1 minute or greater than 2 seizures within a 2-hour period 3. Continue seizure precautions 4. Will adjust anticonvulsant medications as needed/tolerated 5. Will consider IV Depakote if needed 6. Will recommend surface EEG recording to assess for subclinical status epilepticus if patient's mental status does not improve after patient is weaned off of propofol (2) Intractable epilepsy: Consult Attestations Medical Necessity Statement: The patient was consulted by neurology secondary to history of intractable epilepsy and status epilepticus on 07/13/2023. Patient and emergency department room #14 Coding Level of Care Code 13350 Diagnoses Status epilepticus G40.901 Intractable epilepsy G40.919
[2023-07-13 13:58] LABS: Magnesium 2.4 mg/dL (1.7-2.3)
--- NOTE | 2023-07-13 14:00 | PC.NURSE ---
OG Tube OG tube present upon admission to ICU.
[2023-07-13] MEDS: D5-NS 0.45% + KCL 20 mEq 20 MEQ/1,000 ML BAG 100 MEQ IV (15:16)
[2023-07-13] MEDS: PHENYTOIN 25 MG/ML 250 MG PO (15:21)
[2023-07-13] MEDS: propofol 1,000 MG/100 ML INJ 32.66 MG IV ×2 (15:49→18:16)
[2023-07-13] MEDS: lacosamide 200 MG in sodium chloride 0.9% 50 ML 120 MG IV (19:14)
[2023-07-13] MEDS: fentaNYL 1,000 MCG/100 ML BAG 2.5 MCG IV (19:22)
[2023-07-13] MEDS: trazodone 100 mg Tablet PO (20:28)
[2023-07-13] MEDS: propofol 1,000 MG/100 ML INJ 29.39 MG IV (21:19)
[2023-07-13] MEDS: [UNRECOGNIZED DRUG - REMARK] 104 MG IV (22:38)
[2023-07-13] MEDS: levETIRAcetam 2,000 MG/200 ML PREMIX 400 MG IV (22:38)
[2023-07-14] VITALS (89 sets, daily range): BP systolic 87–143; BP diastolic 54–88; PULSE 54–80; RESP 15–20; TEMP 36.5–37.2; O2SAT 93–100
[2023-07-14] MEDS: propofol 1,000 MG/100 ML INJ 22.86 MG IV ×2 (01:04→06:04)
[2023-07-14] MEDS: piperacillin-tazobactam 3.375 GM in sodium chloride 0.9% (plus) 50 ML IV ×3 (01:33→18:17)
[2023-07-14] MEDS: D5-NS 0.45% + KCL 20 mEq 20 MEQ/1,000 ML BAG 100 MEQ IV (01:33)
[2023-07-14 04:21] LABS: Basophils # 0.1 10^3/uL (0.0-0.1); Basophils % 0.2 %; Eosinophils % 0.1 %; Hematocrit 46.4 % (37-53); Lymphocytes # 1.1 10^3/uL (0.8-4.8); Lymphocytes % 3.8 %; Mean Corpuscular HGB Conc 34.3 g/dL (30-55); Mean Corpuscular Hemoglobin 33.7 pg (27-33); Mean Corpuscular Volume 98.3 fl (82-101); Mean Platelet Volume 9.6 fL (7.4-10.4); Monocytes % 6.7 %; Neutrophils % 88.6 %; Nucleated Red Blood Cells % 0 %; Platelet Count 184 10^3/cmm (157-399); Red Blood Count 4.72 10^6/uL (3.85-5.65); Red Cell Distribution Width 14.1 % (12.1-15.1); White Blood Count 29.21 10^3/uL (3.29-11.43)
[2023-07-14 04:46] LABS: ABG PH Result 7.35 (7.35-7.45); Arterial Blood Gas Hematocrit 57.7 % (42-52); Blood Gas Allen Test Pos; Blood Gas Operator Identificat JB; Blood Gas Sample Site Radial, left; Blood Gas Sample Type Arterial; HCO3 ABG 23.8 mmol/L (22-26); Oxygen Device VENT; PO2 FiO2 Ratio Arterial Blood 0
[2023-07-14 04:49] LABS: Alanine Aminotransferase 24 U/L (0-41); Albumin Level 4.4 g/dL (3.5-5.2); Alkaline Phosphatase 125 U/L (40-130); Anion Gap 19.2 (5-19); Aspartate Amino Transferase 30 U/L (0-40); Blood Urea Nitrogen 15 mg/dL (6-20); Calcium 9.3 mg/dL (8.5-10.5); Carbon Dioxide 20 mmol/L (22-29); Chloride 105 mmol/L (98-107); Globulin 2.5 g/dL (1.3-4.6); Glucose 148 mg/dL (65-115); Magnesium 2.5 mg/dL (1.7-2.3); Osmolality Calculated 294 mOsm/kg (285-295); Potassium 4.2 mmol/L (3.5-5.1); Sodium 140 mmol/L (136-145); Total Bilirubin 0.7 mg/dL (0.15-1.2); Total Protein 6.9 g/dL (6.6-8.7)
--- NOTE | 2023-07-14 05:13 | PC.NURSE ---
IV Access: Lost IV access. Multiple nurses attempted to stick in upper extremities for new IV's without success. 22G IV placed in L. foot. Dr. Priest called to update on loss of access and stick to L. foot. New order to consult for PICC line.
[2023-07-14] MEDS: lacosamide 200 MG in sodium chloride 0.9% 50 ML 120 MG IV ×2 (06:46→17:00)
[2023-07-14] MEDS: fentaNYL 1,000 MCG/100 ML BAG 7.5 MCG IV (06:51)
--- NOTE | 2023-07-14 07:00 | XRR_ITS ---
PROCEDURE INFORMATION: Exam: XR Chest Exam date and time: 07/14/2023 7:48 AM Age: 52 years old Clinical indication: Other: Resp failure TECHNIQUE: Imaging protocol: Radiologic exam of the chest. Views: 1 view. COMPARISON: CR XR chest 1V portable [id number] 07/13/2023 11:00 AM FINDINGS: Lungs: Left lower lobe infiltrate developing. Pleural spaces: Unremarkable. No pleural effusion. No pneumothorax. Heart/Mediastinum: Unremarkable. No cardiomegaly. Bones/joints: Unremarkable. Other findings: Stable life support lines. XR/XR chest 1V portable [id number] IMPRESSION: Developing infiltrate.
[2023-07-14] MEDS: [UNRECOGNIZED DRUG - REMARK] 104 MG IV ×2 (07:18→15:11)
--- NOTE | 2023-07-14 07:32 | XR_ITS ---
WS: [id number] Exam: XR chest 1V portable [id number] Date/Time of Exam: 07/14/2023 7:35 AM Reason For Exam: ET placement Comparison 07/14/2023 at 7:50 a.m. Mild infiltrate in the LEFT base unchanged. The RIGHT lung is clear. No pneumothorax or pleural effus ion. Normal cardiomediastinal silhouette. An ET tube ends about 4 cm above the jim in satisfactory position. An enteric tube extends below the level of diaphragm with the tip is not visible. Osseous structures are unremarkable as visualized. IMPRESSION: 1. Mild infiltrate in the LEFT lower lung zone unchanged. 2. ET tube in satisfactory position. Enteric tube extends below the diaphragm but the tip is not visi ble.
--- NOTE | 2023-07-14 08:49 | P.PN_ITS ---
Subjective Subjective: No obvious seizure activity overnight. No change in ventilator settings overall. Did seem to be able to follow directions when sedation was lessened last night. Nursing had some issues with IV access. Medications: Reviewed: Yes Vitals/I&O/Wt Last Vital Signs Temp 98.7 F 07/14/23 08:08 Pulse 61 07/14/23 06:00 Resp 16 07/14/23 07:54 BP 100/67 07/14/23 06:00 Pulse Ox 96 07/14/23 07:54 O2 Del Method Mechanical Ventilation 07/13/23 14:02 O2 Flow Rate 100 07/13/23 14:00 FiO2 30 07/14/23 07:54 07/13/23 07/14/23 07/14/23 22:59 06:59 14:59 Intake Total 357.100 / 134.104 8332.862 / 2088.492 95 / 95 Output Total 700 / 700 500 / 1200 Balance -342.900 / -832.946 9127.862 / 888.492 95 / 95 Weight last 48 hrs Weight 122.47 kg Weight 118.161 kg Weight 108.862 kg Physical Exam Narrative: General exam is an intubated and sedated male, who appears comfortable. HEENT: Pupils equally round. Endotracheal tube is noted. Orogastric tube is noted Neck is supple no lymphadenopathy thyromegaly Cardiovascular regular rate and rhythm, no murmur Lungs coarse bilaterally Abdomen is soft with positive bowel sounds. Ostomy is noted with stool. Midline scar noted. Positive bowel sounds. No obvious organomegaly exam Saenz noted Extremities no cyanosis clubbing or edema, cap refill brisk Skin no rash Neuro: Intubated and sedated Urinary Catheter Management: Saenz: Cath Placed During This Visit: yes Reason for Continuing Indwelling Catheter: Accurate Measurement of Urinary Output in Critically Ill Patients Urinary Catheter Date of Insertion: 07/13/23 Data 07/14/23 03:45 07/14/23 03:45 Other Labs: ABG with pH 7.35, PCO2 43, PO2 101 Magnesium 2.5, LFTs normal I have ordered a trough Dilantin level Chest x-ray reviewed by me this morning demonstrated that tube was high. I instructed nursing to advance for 3 cm, and then another advancement was needed for ideal positioning. Micro: Microbiology 07/13/23 11:11 Gram Stain - Final Sputum - Endotracheal Tube Aspirate 07/13/23 11:06 Blood Culture - Preliminary Blood SPECIMEN COLLECTED 07/13/23 11:00 Blood Culture - Preliminary Blood SPECIMEN COLLECTED A&P Assessment and plan (1) Status epilepticus: Patient presents with status epilepticus. He was given 1 g of Keppra, Ativan 2 mg per the emergency department physician He has been intubated and sedated with propofol secondary to his status and inability to protect his airway Appreciate neurology consult. His home medications were switched to IV Ativan as needed for breakthrough seizures. Lessening sedation, and consider extubation if no seizures CBC, CMP in the morning (2) Acute respiratory failure: Patient with acute respiratory failure, inability to protect his airway secondary to acute status epilepticus Intubated in the emergency department Sedation with propofol and fentanyl X-ray this morning did not show ideal tube position. This was advanced Try to wean ventilator today, reduce sedation, possible extubation (3) Aspiration pneumonitis: Has aspiration pneumonitis. Infiltrate present left lower lobe. This is present on x-ray Continue Zosyn IV initiated Likely still will be able to extubate today Plan Other medical problems as outlined in past medical history full code High risk patient, with high risk for , decompensation and requiring mechanical ventilation Attestations Medical Necessity Statement*: Needs continued hospitalization for respiratory support with mechanical ventilation, and close monitoring secondary to status epilepticus on presentation. Still high risk for deterioration, considering presentation, currently on the ventilator, development of aspiration pneumonitis Critical Care Time: The high probability of a clinically significant, sudden or life threatening deterioration of the patient's [respiratory, infectious disease, neurologic] system(s) required my full and direct attention, intervention and personal management. The critical care time is as shown. This time is in addition to time spent performing any reported procedures but includes the following: [x] Data and vital sign review and interpretation [x] Patient assessment, examination and intervention [x] Documentation [x] Medication orders and management Critical Care Time (min): 31 Coding Level of Care Code Critical Care >/= 30 minutes Critical care time (in minutes): 31 The high probability of a clinically significant, sudden or life threatening deterioration, as referenced in this documentation, required my full and direct attention, intervention and personal management. The critical care time shown is in addition to time spent performing any reported separately billable procedures and includes the following: [x] Data and vital sign review and interpretation [x ] Patient assessment, examination and intervention [x] Medication orders and management [x] Patient/Family updates as able [x] Care Coordination and Documentation. Diagnoses Status epilepticus G40.901 Acute respiratory failure J96.00 Aspiration pneumonitis J69.0
[2023-07-14] MEDS: pantoprazole 40 mg SDV IVP (09:07)
[2023-07-14 09:18] LABS: Phenytoin Dilantin 8.6 ug/mL (10-20)
[2023-07-14] MEDS: levETIRAcetam 2,000 MG/200 ML PREMIX 400 MG IV (10:07)
--- NOTE | 2023-07-14 14:08 | PC.NURSE ---
Patient extubated per Dr. Glass orders by RT at 1348.
--- NOTE | 2023-07-14 14:13 | PC.NURSE ---
71.542 mLs of Fentanyl wasted, 13.075 mLs Propofol wasted, witnessed by Harriosn MIRZA
--- NOTE | 2023-07-14 15:00 | PC.NURSE ---
Bedside swallow test, Patient done well with ice, coughed each time with free water. Dr. De Leon updated
--- NOTE | 2023-07-14 18:26 | PC.NURSE ---
Nurse witness 71.542 mLs of Fentanyl and 13.075 mLs Propofol waste By eliazar MIRZA
[2023-07-14] MEDS: trazodone 100 mg Tablet PO (21:36)
[2023-07-14] MEDS: PHENYTOIN 25 MG/ML 250 MG PO (21:36)
[2023-07-15] VITALS (30 sets, daily range): BP systolic 104–138; BP diastolic 57–88; PULSE 66–75; RESP 13–22; TEMP 37.2; O2SAT 94–98
[2023-07-15] MEDS: levETIRAcetam 500 mg Tablet 2000 MG PO ×2 (00:17→08:20)
[2023-07-15] MEDS: piperacillin-tazobactam 3.375 GM in sodium chloride 0.9% (plus) 50 ML IV (03:35)
[2023-07-15 06:10] LABS: Basophils # 0.1 10^3/uL (0.0-0.1); Basophils % 0.4 %; Eosinophils # 0.7 10^3/uL (0.0-0.8); Eosinophils % 4.2 %; Lymphocytes # 1.5 10^3/uL (0.8-4.8); Lymphocytes % 9.5 %; Mean Corpuscular HGB Conc 34.4 g/dL (30-55); Mean Corpuscular Hemoglobin 33.6 pg (27-33); Mean Corpuscular Volume 97.6 fl (82-101); Mean Platelet Volume 9.3 fL (7.4-10.4); Monocytes # 1.4 10^3/uL (0.2-0.9); Monocytes % 8.9 %; Neutrophils # 12.31 10^3/uL (1.8-7.7); Neutrophils % 76.6 %; Nucleated Red Blood Cells % 0 %; Platelet Count 143 10^3/cmm (157-399); Red Cell Distribution Width 13.9 % (12.1-15.1); White Blood Count 16.07 10^3/uL (3.29-11.43)
[2023-07-15 06:32] LABS: Alanine Aminotransferase 15 U/L (0-41); Albumin Level 3.6 g/dL (3.5-5.2); Alkaline Phosphatase 99 U/L (40-130); Aspartate Amino Transferase 22 U/L (0-40); Blood Urea Nitrogen 18 mg/dL (6-20); Carbon Dioxide 26 mmol/L (22-29); Chloride 105 mmol/L (98-107); Globulin 2.8 g/dL (1.3-4.6); Glomerular Filtration Rate 101.9 mL/min (90-130); Glucose 105 mg/dL (65-115); Osmolality Calculated 292 mOsm/kg (285-295); Sodium 140 mmol/L (136-145); Total Bilirubin 0.7 mg/dL (0.15-1.2); Total Protein 6.4 g/dL (6.6-8.7)
[2023-07-15 07:14] LABS: Levetiracetam Immunoassy 8.8 mcg/mL (6.0-46.0)
[2023-07-15] MEDS: pantoprazole DR 40 mg Tablet PO (08:20)
[2023-07-15] MEDS: lacosamide 50 mg Tablet 200 MG PO (08:20)
[2023-07-15] MEDS: amoxicillin-clav 875-125 mg Tablet 1 TAB PO (08:20)
[2023-07-15] MEDS: PHENYTOIN 25 MG/ML 250 MG PO (08:21)
--- NOTE | 2023-07-15 12:15 | P.DS_ITS ---
Discharge Providers Date of Admission: 07/13/23 12:00 Date of Discharge: July 15, 2023 Attending Provider at Admission: Fidel De Leon MD Attending Provider at Discharge: Fidel De Leon MD Primary Care Provider: NIRANJAN Drummond Diagnoses at Discharge Discharge Diagnosis (1) Status epilepticus: Status: Acute (2) Acute respiratory failure: Status: Acute (3) Aspiration pneumonitis: Status: Acute Reason for Visit Reason for Visit: Seizures Hospital Course Hospital Course Jaziel is a 52-year-old male with intellectual disability and intractable seizure disorder who presented in status to the emergency department. Family indicates he could not tolerate his Cenobate, but they had been giving him his Vimpat, lacosamide, and Dilantin. He was intubated for airway protection as well as concern of aspiration pneumonitis. He was given Keppra IV. His medications he was on at home were continued IV. He was placed on IV antibiotics for aspir ation the next morning he was stable on the ventilator, with a small left-sided infiltrate likely aspiration. He was able to be extubated that afternoon, did well overnight, and able to go home on day of discharge July 15 at his baseline mental status. I discussed with neurology discharge medication regimen, and he is to continue his current medications of lacosamide, Vimpat, Keppra and keep follow-up with neurology for possible changes. He will see his primary care provider 3 to 5 days. I will have him take Augmentin for 7 days secondary to concern of aspiration. I have visited with family during his hospital stay regarding his plan, and they agree to follow-up. Physical Exam Narrative: General exam no distress Neck is supple Cardiovascular regular rate and rhythm, no murmur Lungs clear Abdomen is soft Extremities no cyanosis clubbing or edema Urinary Catheter Management: Saenz: Cath Placed During This Visit: yes Reason for Continuing Indwelling Catheter: Accurate Measurement of Urinary Output in Critically Ill Patients Urinary Catheter Date of Insertion: 07/13/23 Discharge Data Studies Completed and Pending Completed Studies During Hospitalization Category Date Time Status XR chest 1V portable [id number] Routine Exams 07/14/23 07:00 Completed XR chest 1V portable [id number] Routine Exams 07/14/23 07:32 Completed XR chest 1V portable [id number] Stat Exams 07/13/23 10:35 Completed Pending at discharge Category Date Time Status Blood Culture Stat Lab 07/13/23 11:06 Results Lacosamide (Vimpat) Routine Lab 07/13/23 11:00 Received Sputum Culture and Gram Stain Stat Lab 07/13/23 11:11 Results Laboratory Results WBC 16.07 10^3/uL (3.29-11.43) H 07/15/23 06:00 RBC 4.20 10^6/uL (3.85-5.65) 07/15/23 06:00 Hgb 14.10 g/dL (11.27-16.99) 07/15/23 06:00 Hct 41.0 % (37-53) 07/15/23 06:00 MCV 97.6 fl (82-101) 07/15/23 06:00 MCH 33.6 pg (27-33) H 07/15/23 06:00 MCHC 34.4 g/dL (30-55) 07/15/23 06:00 RDW 13.9 % (12.1-15.1) 07/15/23 06:00 Plt Count 143 10^3/cmm (157-399) L 07/15/23 06:00 MPV 9.3 fL (7.4-10.4) 07/15/23 06:00 Neut % (Auto) 76.6 % 07/15/23 06:00 Lymph % (Auto) 9.5 % 07/15/23 06:00 [place] % (Auto) 8.9 % 07/15/23 06:00 Eos % (Auto) 4.2 % 07/15/23 06:00 Baso % (Auto) 0.4 % 07/15/23 06:00 Neut # (Auto) 12.31 10^3/uL (1.8-7.7) H 07/15/23 06:00 Lymph # (Auto) 1.5 10^3/uL (0.8-4.8) 07/15/23 06:00 [place] # (Auto) 1.4 10^3/uL (0.2-0.9) H 07/15/23 06:00 Eos # (Auto) 0.7 10^3/uL (0.0-0.8) 07/15/23 06:00 Baso # (Auto) 0.1 10^3/uL (0.0-0.1) 07/15/23 06:00 Nucleated RBC % (auto) 0 % 07/15/23 06:00 Nucleated RBCs # 0.0 /100WBC 07/15/23 06:00 Specimen Type Arterial 07/14/23 04:11 Sample Site Radial, left 07/14/23 04:11 ABG pH 7.35 (7.35-7.45) 07/14/23 04:11 ABG pCO2 43.0 mmHg (35-45) 07/14/23 04:11 ABG pO2 101.0 mmHg (80.0-100.0) H 07/14/23 04:11 ABG PO2/FiO2 Ratio 0 07/14/23 04:11 ABG HCO3 23.8 mmol/L (22-26) 07/14/23 04:11 ABG O2 Saturation 97.4 07/13/23 12:50 ABG Base Excess -2.0 mmol/L (-2.0-2.0) 07/14/23 04:11 Ricardo Test Pos 07/14/23 04:11 A-a O2 Gradient 10.5 mmHg (5-10) H 07/13/23 12:50 Hematocrit 57.7 % (42-52) H 07/14/23 04:11 Hgb O2 Saturation 95.4 % (95-100) 07/13/23 12:50 Carboxyhemoglobin 1.8 %THgb (0.4-20.1) 07/13/23 12:50 Methemoglobin 0.3 % (0.4-1.5) L 07/13/23 12:50 Total Hemoglobin 15.5 g/dL (14-18) 07/13/23 12:50 Sodium 141.0 mmol/L (131-143) 07/13/23 12:50 Potassium 3.9 mmol/L (3.5-5.0) 07/13/23 12:50 Glucose 124.0 mg/dL (70-115) H 07/13/23 12:50 Ionized Calcium 1.2 mmol/L (1.1-1.4) 07/13/23 12:50 O2 Delivery Device Vent 07/14/23 04:11 FiO2 30.0 % 07/14/23 04:11 Tidal Volume 0.50 07/14/23 04:11 PEEP 8.0 cmH20 07/14/23 04:11 Horse Show Manager ID Krishna 07/14/23 04:11 Sodium 140 mmol/L (136-145) 07/15/23 06:00 Potassium 4.0 mmol/L (3.5-5.1) 07/15/23 06:00 Chloride 105 mmol/L (98-107) 07/15/23 06:00 Carbon Dioxide 26 mmol/L (22-29) 07/15/23 06:00 Anion Gap 13.0 (5-19) 07/15/23 06:00 BUN 18 mg/dL (6-20) 07/15/23 06:00 Creatinine 0.8 mg/dL (0.7-1.2) 07/15/23 06:00 GFR Calculation 101.9 mL/min (90-130) 07/15/23 06:00 Glucose 105 mg/dL (65-115) 07/15/23 06:00 POC Glucose 110 mg/dL (70-110) 07/13/23 10:58 Calculated Osmolality 292 mOsm/kg (285-295) 07/15/23 06:00 Calcium 9.0 mg/dL (8.5-10.5) 07/15/23 06:00 Magnesium 2.5 mg/dL (1.7-2.3) H 07/14/23 03:45 Total Bilirubin 0.7 mg/dL (0.15-1.2) 07/15/23 06:00 AST 22 U/L (0-40) 07/15/23 06:00 ALT 15 U/L (0-41) 07/15/23 06:00 Alkaline Phosphatase 99 U/L (40-130) 07/15/23 06:00 Total Protein 6.4 g/dL (6.6-8.7) L 07/15/23 06:00 Albumin 3.6 g/dL (3.5-5.2) 07/15/23 06:00 Globulin 2.8 g/dL (1.3-4.6) 07/15/23 06:00 Urine Color Yellow (Yellow) 07/13/23 10:43 Urine Appearance Clear (CLEAR) 07/13/23 10:43 Urine pH 5 (5-7) 07/13/23 10:43 Ur Specific [place] 1.020 (1.005-1.030) 07/13/23 10:43 Urine Protein Neg (Negative) 07/13/23 10:43 Urine Glucose (UA) Norm (Normal) 07/13/23 10:43 Urine Ketones Negative (Negative) 07/13/23 10:43 Urine Blood Neg (Negative) 07/13/23 10:43 Urine Nitrate Negative (Negative) 07/13/23 10:43 Urine Bilirubin Neg (Negative) 07/13/23 10:43 Urine Urobilinogen Norm mg/dL (Negative) 07/13/23 10:43 Ur Leukocyte Esterase Negative (Negative) 07/13/23 10:43 Phenytoin 8.6 ug/mL (10-20) L 07/14/23 03:45 Levetiracetam 8.8 mcg/mL (6.0-46.0) 07/13/23 11:00 Vitals Last Vital Signs Temp 98.4 F 07/14/23 19:30 Pulse 67 07/15/23 10:00 Resp 16 07/15/23 10:00 BP 119/67 07/15/23 10:00 Pulse Ox 97 07/15/23 10:00 O2 Del Method Room Air 07/15/23 10:00 O2 Flow Rate 100 07/13/23 14:00 FiO2 30 07/14/23 12:35 Discharge Plan Discharge Patient Disposition: Home Condition: Stable Prescriptions: New Vimpat 50 mg Tablet 200 mg PO BID Qty: 240 0RF amoxicillin-pot clavulanate 875-125 mg Tablet 1 tab PO BID Qty: 14 0RF Continued (DME) Compression hose 30/40 See Rx Instructions .Route .MEDSUPPLY Qty: 1 2RF Rx Instructions: Measure to fit A6531 (DME) Diabetic Shoes with 3 pairs of inserts See Rx Instructions .ROUTE .MEDSUPPLY Qty: 1 0RF Rx Instructions: As directed by HOME silver Gel,Extended Release 1 applic topical DAILY Qty: 89 0RF lacosamide [Vimpat] 200 mg tablet 200 mg PO BID Qty: 60 5RF chlorhexidine gluconate [Peridex] 0.12 % mouthwash 15 ml buccal BID Qty: 473 2RF Rx Instructions: swish and spit trazodone 100 mg tablet 100 mg PO BEDTIME Qty: 30 2RF (DME) Compression hose 18/30 See Rx Instructions Rx Instructions: Measure for size A6530 phenytoin [Dilantin Infatabs] 50 mg tablet,chewable 250 mg PO Q8H levetiracetam [Keppra] 1,000 mg tablet 2,000 mg PO BID Discontinued cenobamate 100 mg tablet 100 mg PO DAILY 14 Days Qty: 14 0RF Rx Instructions: administer weeks 7 and 8 of therapy cenobamate 12.5 mg (14)- 25 mg (14) tablets,dose pack See Rx Instructions PO PER PKG DIR Qty: 28 0RF Rx Instructions: PO PER PKG DIR cenobamate 50 mg (14)- 100 mg (14) tablets,dose pack See Rx Instructions PO PER PKG DIR Qty: 28 0RF Rx Instructions: PO PER PKG DIR cenobamate 150 mg (14)- 200 mg (14) tablets,dose pack See Rx Instructions PO PER PKG DIR Qty: 28 0RF Rx Instructions: PO PER PKG DIR cenobamate 200 mg tablet 200 mg PO DAILY Qty: 30 3RF Rx Instructions: ongoing Discharge Orders: Discharge Order (Routine); Ordered 07/15/23 Ordered By: Fidel De Leon Referrals: Amy Forrester MD [Physician] - 1 week Candi Latif FNP-C [Primary Care Provider] - 4-7 days Discharge Diet: Usual diet Discharge Activity: Increase activity as tolerated Patient Instructions: Opioid Safety Activity Restrictions/Additional Instructions: Take all medicine as prescribed Finish antibiotic as prescribed Follow-up with neurology 1 to 2 weeks, primary care provider 3 to 5 days Discharge Attestations Time Spent in Discharge Care*: greater than 30 min Status at Discharge: Cognitive status at discharge: moderately impaired cognition , Behavioral status at discharge: cooperative , Quality Metrics Clinical Quality Measures [ No reported AMI, CVA or VTE this stay] Coding Level of Care Code 28741 Total time (in minutes) for Discharge: 38 Diagnoses Status epilepticus G40.901 Acute respiratory failure J96.00 Aspiration pneumonitis J69.0
--- NOTE | 2023-07-15 14:15 | PC.NURSE ---
Patient and mother at bedside educated on follow up appointments and medication changes/stopped meds. Medications sent to pharmacy. Patient and mother eager to discharge, provided written education with highlighted areas to mother, reviewed this at bedside, patient and mother had no questions, instructed to call with questions or to contact PCP/ when to call EMS, IVs removed as documented, Patient taken via wheelchair to personal vehicle, ambulated to vehicle.
[2023-07-27 12:29] LABS: Lacosamide (Vimpat) 4.4
== END 2023-07-15 14:19 | disposition home or self-care (01) | DRG 100 ==
LOC: ER 11:37 → ICU 12:01
PROVIDERS: Admitting Provider Internal Medicine; Emergency Provider Family Medicine; PCP Nurse Practitioner; Visit Provider Internal Medicine
DX: G40.411 Other generalized epilepsy and epileptic syndromes, intractable, with status epilepticus (principal); J69.0 Pneumonitis due to inhalation of food and vomit; J96.00 Acute respiratory failure, unspecified whether with hypoxia or hypercapnia; I10 Essential (primary) hypertension; F89 Unspecified disorder of psychological development; F79 Unspecified intellectual disabilities; I73.9 Peripheral vascular disease, unspecified
CPT/HCPCS: 31500; 36415; 36416; 36600; 51702; 71045; 80051; 80053; 80177; 80185; 80299; 81003; 82330; 82803; 82805; 82962; 83735; 85025; 87040; 87070; 87077; 87186; 87205; 92523; 92610; 94002; 94003; 94799; 96365; 96366; 96375; 96376; 99291; C9113; C9254; J1165; J1953; J2060; J2543; J2704; J3010; J3490

== ENCOUNTER → 2023-07-21 08:58 | Outpatient (BNVA) | payer MEDICARE, MEDICAID, SELFPAY | PROVIDERS: PCP Nurse Practitioner; Visit Provider Thoracic Surgery (Cardiothoracic Vascular Surgery) | DX: I96 Gangrene, not elsewhere classified (principal); S41.101A Unspecified open wound of right upper arm, initial encounter; X58.XXXA Exposure to other specified factors, initial encounter | CPT/HCPCS: 97597; 99213; A6021; A6248 ==

== ENCOUNTER → 2023-07-28 13:43 | Outpatient (BNVA) | payer MEDICARE, MEDICAID, SELFPAY | PROVIDERS: PCP Nurse Practitioner; Visit Provider Nurse Practitioner Family | DX: L98.492 Non-pressure chronic ulcer of skin of other sites with fat layer exposed (principal) | CPT/HCPCS: 97597 ==

== ENCOUNTER → 2023-08-06 09:05 | Outpatient (BNVA) | payer MEDICARE, MEDICAID, SELFPAY | PROVIDERS: PCP Nurse Practitioner; Visit Provider Thoracic Surgery (Cardiothoracic Vascular Surgery) | DX: Z09 Encounter for follow-up examination after completed treatment for conditions other than malignant neoplasm (principal); Z87.2 Personal history of diseases of the skin and subcutaneous tissue | CPT/HCPCS: 99212 ==

== ENCOUNTER → 2023-08-31 09:13 | Outpatient (BNVA) | payer MEDICARE, MEDICAID, SELFPAY | PROVIDERS: PCP Nurse Practitioner; Visit Provider Specialist | DX: G40.011 Localization-related (focal) (partial) idiopathic epilepsy and epileptic syndromes with seizures of localized onset, intractable, with status epilepticus (principal) | CPT/HCPCS: 99214 ==

== ENCOUNTER 2023-10-25 19:05 | Observation (INO) | payer MEDICARE, MEDICAID, SELFPAY ==
[2023-10-25] VITALS (29 sets, daily range): BP systolic 94–155; BP diastolic 55–78; PULSE 66–115; RESP 14–31; TEMP 36.7; O2SAT 87–98; BMI 34.0; BMI 34.2
--- NOTE | 2023-10-25 19:09 | ECG_ITS ---
[facility] Test Date: 2023-10-25 Pat Name: Jaziel Willis Department: Room: Gender: Male Supervising Deputy: : 1970 Requested By: Sulma Butler Order Number: [id number] Tucker MD: Luciana Whaley M.D. Measurements Intervals [place] Rate: 77 P: 54 TN: 177 QRS: 78 QRSD: 152 T: 42 QT: 414 QTc: 469 Interpretive Statements SINUS RHYTHM RIGHT BUNDLE BRANCH BLOCK [120+ ms QRS DURATION, UPRIGHT V1, 40+ ms S IN I/aVL/V4/V5/V6] Compared to ECG 12/22/2022 03:15:32 No significant changes Electronically Signed On 10-26-2023 0:41:45 CERTIFIED WELLNESS PROGRAM MANAGER by Luciana Whaley M.D. [id number]
[2023-10-25] MEDS: levETIRAcetam 1,500 MG/100 ML PREMIX 400 MG IV (19:13)
[2023-10-25] MEDS: LORazepam 2 mg/mL INJ 10 mL MDV IVP ×2 (19:13→19:22)
--- NOTE | 2023-10-25 19:45 | ED_ITS ---
HPI - Seizure 2 General: Chief Complaint: Seizure Stated Complaint: seizures Time Seen by Provider: 10/25/23 19:05 Source: EMS Mode of arrival: EMS Limitations: altered mental status History of Present Illness: HPI Narrative: 52-year-old male very well-known to ER h e has a history of seizures has been seen here in status multiple times. Patient having seizures tonight at 1840 patient was given IM Ativan and route by EMS that he not able to establish IV he states that he had quit seizing for just short. He is currently actively seizing currently. No known injuries did not hit his head. Seizure History: Yes Review of Systems 2 General: Reports: ROS unobtainable due to mental status PFSH ED 2 PFSH: Medical History Developmental disorder Frontal lobe epilepsy Cellulitis of oral soft tissues Endotracheally intubated Status epilepticus Essential hypertension Generalized epilepsy Morbid obesity Hypertension Intellectual disability Peripheral vascular disease Venous stasis dermatitis Leukocytosis Seizure Surgical History History of laparoscopic cholecystectomy History of total colectomy August 2022 S/P vein stripping Family History Father Cancer Lung cancer Mother CAD (coronary artery disease) Other Diabetes Heart disease Hypertension Denies family history of Stroke Social History Smoking and tobacco/nicotine status: never used tobacco/nicotine Second hand smoke exposure: No Alcohol intake: never Substance/Drug Use: never Adopted: No Caregiver/support person: Yes Lives independently: No Household members: family Housing: House Marital status: Single Number of children: 0 service: No Current occupational status: disabled Do you think of yourself as: Straight/Heterosexual Current gender identity: Male Physical Exam 2 Const: COMMON NORMALS: negative for patient oriented x3 GENERAL APPEARANCE: in distress HENMT: COMMON NORMALS: normocephalic and atraumatic HEAD & SCALP: n ormocephalic and atraumatic Eye: COMMON NORMALS: Equal, round and reactive pupils present and EOMs intact bilaterally PUPIL: Yes Equal, round and reactive pupils present Neck/C-Spine: COMMON NORMALS: full ROM and supple Chest: COMMONS NORMALS: normal inspection of the chest and normal palpation of entire chest wall Resp: COMMON NORMALS: normal respiratory effort, No retractions, No use of accessory muscles and clear to auscultation bilaterally AUSCULTATION: clear to auscultation bilaterally Cardio: COMMON NORMALS: regular rate, regular rhythm and No murmurs present (Cardio) RATE: regular rate RHYTHM: regular rhythm GI: COMMON NORMALS: Normal to inspection, nondistended, normoactive bowel sounds present, Soft to palpation, non-tender and no masses PALPATION: Yes Soft to palpation Extremity: COMMON NORMALS: normal to inspection and full ROM Neuro: COMMON NORMALS: negative for patient oriented x3 OTHER: actively seizing Psych: COMMON NORMALS: mental status grossly normal, Normal thought process present and cooperative THOUGHT PROCESS: Normal thought process present Skin: COMMON NORMALS: no rashes or lesions noted and no wounds GENERAL SKIN EXAM: no rashes or lesions noted Course 2 Vital Signs: Vital signs: Vital Signs Pulse Rate 72 10/25/23 20:45 Respiratory Rate 22 H 10/25/23 20:45 Blood Pressure 112/63 10/25/23 20:45 Pulse Oximetry 93 10/25/23 20:45 Oxygen Delivery Me thod Oxymask 10/25/23 19:47 Oxygen Flow Rate 15 10/25/23 19:47 MDM - Seizure MDM Narrative Medical decision making narrative: Patient presents here with a seizure he arrived in status epilepticus he has a history of this he did stop seizing here after Ativan and Keppra he has been seizure-free starting to wake up more he is quite sedated from the Ativan and being postictal. Spoke to the hospitalist will admit to the ICU he has had multiple head CTs in the past did not hit his head does not require head CT at this time Lab Data Attestation: I reviewed the patient's lab results. 10/25/23 19:59 10/25/23 19:59 Labs: Radiology Impressions Chest X-Ray 10/25/23 19:46 IMPRESSION: 1. Left lower lobe atelectasis versus infiltrate. 2. Cardiomegaly. 3. Mild pulmonary vascular congestion. Laboratory Results WBC 12.47 10^3/uL (3.29-11.43) H 10/25/23 19:59 RBC 4.53 10^6/uL (3.85-5.65) 10/25/23 19:59 Hgb 15.50 g/dL (11.27-16.99) 10/25/23 19:59 Hct 44.1 % (37-53) 10/25/23 19:59 MCV 97.4 fl (82-101) 10/25/23 19:59 MCH 34.2 pg (27-33) H 10/25/23 19:59 MCHC 35.1 g/dL (30-55) 10/25/23 19:59 RDW 13.6 % (12.1-15.1) 10/25/23 19:59 Plt Count 185 10^3/cmm (157-399) 10/25/23 19: MPV 9.0 fL (7.4-10.4) 10/25/23 19:59 Neut % (Auto) 79.4 % 10/25/23 19:59 Lymph % (Auto) 10.4 % 10/25/23 19:59 [place] % (Auto) 5.7 % 10/25/23 19:59 Eos % (Auto) 3.1 % 10/25/23 19:59 Baso % (Auto) 0.5 % 10/25/23: Neut # (Auto) 9.90 10^3/uL (1.8-7.7) H 10/25/23 19:59 Lymph # (Auto) 1.3 10^3/uL (0.8-4.8) 10/25/23 19:59 [place] # (Auto) 0.7 10^3/uL (0.2-0.9) 10/25/23 19: Eos # (Auto) 0.4 10^3/uL (0.0-0.8) 10/25/23 19: Baso # (Auto) 0.1 10^3/uL (0.0-0.1) 10/25/23: Nucleated RBC % (auto) 0 % 10/25/23: Nucleated RBCs # 0.0 /100WBC 10/25/23 19:59 Sodium 137 mmol/L (136-145) 10/25/23 19:59 Potassium 3.2 mmol/L (3.5-5.1) L 10/25/23 19:59 Chloride 98 mmol/L (98-107) 10/25/23 19:59 Carbon Dioxide 20 mmol/L (22-29) L 10/25/23 19:59 Anion Gap 22.2 (5-19) H 10/25/23 19:59 BUN 11 mg/dL (6-20) 10/25/23 19:59 Creatinine 0.8 mg/dL (0.7-1.2) 10/25/23 19:59 GFR Calculation 101.9 mL/min (90-130) 10/25/23 19:59 Glucose 115 mg/dL (65-115) 10/25/23 19:59 Calculated Osmolality 284 mOsm/kg (285-295) L 10/25/23 19:59 Calcium 8.9 mg/dL (8.5-10.5) 10/25/23 19:59 Total Bilirubin 0.3 mg/dL (0.15-1.2) 10/25/23 19:59 AST 25 U/L (0-40) 10/25/23 19:59 ALT 24 U/L (0-41) 10/25/23 19:59 Alkaline Phosphatase 145 U/L (40-130) H 10/25/23 19:59 Total Protein 7.3 g/dL (6.6-8.7) 10/25/23 19:59 Albumin 4.4 g/dL (3.5-5.2) 10/25/23 19:59 Globulin 2.9 g/dL (1.3-4.6) 10/25/23 19:59 Phenytoin 11.1 ug/mL (10-20) 10/25/23 19:59 All radiology interpretation(s) finalized by discharge Critical Care Time 2 Critical Care Time: Critical Care Time: Yes Total Critical Care Time: 40 Attestation: The high probability of a clinically significant, sudden or life threatening deterioration of the patient's neuro system(s) required my full and direct attention, intervention and personal management. The critical care time is as shown. This time is in addition to time spent performing any reported procedures but includes the following: [x] Data and vital sign review and interpretation [x] Patient assessment, examination and intervention [x] Documentation [x] Medication orders and management Discharge Plan Discharge Patient Disposition: Admitted As Inpatient Admit Provider: Osmar Jimenez Clinical Impression: Generalized seizure, Status epilepticus Condition: Stable Coding Level of Care Code ED Supervisor [employer] for Antonio Avila
--- NOTE | 2023-10-25 19:46 | XRR_ITS ---
PROCEDURE INFORMATION: Exam: XR Chest Exam date and time: 10/25/2023 8:00 PM Age: 52 years old Clinical indication: Other: Seizure TECHNIQUE: Imaging protocol: Radiologic exam of the chest. Views: 1 view. COMPARISON: CR XR chest 1V portable [id number] 07/14/2023 8:39 AM FINDINGS: Lungs: Left lower lobe atelectasis versus infiltrate. Mild pulmonary vascular congestion. Pleural spaces: Unremarkable. No pleural effusion. No pneumothorax. Heart/Mediastinum: Cardiomegaly. Bones/joints: Unremarkable. XR/XR chest 1V portable [id number] IMPRESSION: 1. Left lower lobe atelectasis versus infiltrate. 2. Cardiomegaly. 3. Mild pulmonary vascular congestion.
[2023-10-25 20:05] LABS: Basophils # 0.1 10^3/uL (0.0-0.1); Basophils % 0.5 %; Eosinophils # 0.4 10^3/uL (0.0-0.8); Eosinophils % 3.1 %; Hematocrit 44.1 % (37-53); Lymphocytes # 1.3 10^3/uL (0.8-4.8); Lymphocytes % 10.4 %; Mean Corpuscular HGB Conc 35.1 g/dL (30-55); Mean Corpuscular Hemoglobin 34.2 pg (27-33); Mean Corpuscular Volume 97.4 fl (82-101); Monocytes # 0.7 10^3/uL (0.2-0.9); Monocytes % 5.7 %; Neutrophils % 79.4 %; Nucleated Red Blood Cells % 0 %; Platelet Count 185 10^3/cmm (157-399); Red Blood Count 4.53 10^6/uL (3.85-5.65); Red Cell Distribution Width 13.6 % (12.1-15.1); White Blood Count 12.47 10^3/uL (3.29-11.43)
[2023-10-25 20:22] LABS: Alanine Aminotransferase 24 U/L (0-41); Albumin Level 4.4 g/dL (3.5-5.2); Alkaline Phosphatase 145 U/L (40-130); Anion Gap 22.2 (5-19); Aspartate Amino Transferase 25 U/L (0-40); Blood Urea Nitrogen 11 mg/dL (6-20); Calcium 8.9 mg/dL (8.5-10.5); Carbon Dioxide 20 mmol/L (22-29); Chloride 98 mmol/L (98-107); Creatinine Clr Calc Pharmacy 158.9676; Globulin 2.9 g/dL (1.3-4.6); Glomerular Filtration Rate 101.9 mL/min (90-130); Glucose 115 mg/dL (65-115); Osmolality Calculated 284 mOsm/kg (285-295); Potassium 3.2 mmol/L (3.5-5.1); Sodium 137 mmol/L (136-145); Total Bilirubin 0.3 mg/dL (0.15-1.2); Total Protein 7.3 g/dL (6.6-8.7)
[2023-10-25 20:23] LABS: Phenytoin Dilantin 11.1 ug/mL (10-20)
--- NOTE | 2023-10-25 21:44 | P.HP_ITS ---
Providers/Chief Complaint 2 Admitting Physician: Osmar Jimenez Primary Care Provider: NIRANJAN Drummond Chief Complaint: seizures History of Present Illness 52-year-old gentleman with history of epilepsy, breakthrough seizures, developmental delay, was brought in due to multiple seizures, received total 6 mg of Ativan as well as 1500 mg IV Keppra and seizures have subsided he was lethargic but reported starting to wake up in the ER. Family reports he has been having some allergy symptoms recently and headaches, no additional new symptoms. They state they did not get a new lacosamide dose to start. Review of Systems 2 General: Reports: ROS unobtainable due to medical condition and ROS unobtainable due to mental status Medications/Allergies Home Medications Medication Instructions Recorded Confirmed Last Taken Type Compression hose #1 ea 09/21/20 08/31/23 Unknown Rx Compression hose 07/13/21 08/31/23 Unknown History Diabetic Shoes with 3 pairs of #1 ea 03/23/22 08/31/23 Unknown Rx inserts lacosamide 200 mg tablet (Vimpat) 200 mg PO BID #60 tabs 03/31/23 08/31/23 Unknown Rx silver 1 applic topical DAILY #89 mL 06/02/23 08/31/23 Unknown Rx chlorhexidine gluconate 0.12 % 15 ml buccal BID #473 mL 06/24/23 08/31/23 Unknown Rx mouthwash (Peridex) amoxicillin 875 mg-potassium 1 tab PO BID #14 tabs 07/15/23 08/31/23 Unknown Rx clavulanate 125 mg tablet lacosamide 50 mg tablet (Vimpat) 200 mg (4 x 50 mg) PO BID #240 tabs 07/15/23 08/31/23 Unknown Rx Lactobacillus rhamnosus GG 20 See Rx Instructions PO .2 times 07/16/23 08/31/23 Unknown Rx billion cell capsule (Probiotic day #60 caps [facility]) trazodone 100 mg tablet 100 mg PO BEDTIME #30 tabs 09/14/23 Unknown Rx levetiracetam 1,000 mg tablet See Rx Instructions .Route 09/27/23 Unknown Rx .COMPLEX #120 tabs phenytoin 50 mg chewable tablet See Rx Instructions .Route 10/04/23 Unknown Rx .COMPLEX #450 tabs Allergies Allergy/AdvReac Type Severity Reaction Status Date / Time No Known Allergies Allergy Verified 10/25/23 19:19 PFSH Acute 2 PFSH: Medical History Developmental disorder Frontal lobe epilepsy Cellulitis of oral soft tissues Endotracheally intubated Status epilepticus Essential hypertension Generalized epilepsy Morbid obesity Hypertension Intellectual disability Peripheral vascular disease Venous stasis dermatitis Leukocytosis Seizure Surgical History History of laparoscopic cholecystectomy History of total colectomy August 2022 S/P vein stripping Family History Father Cancer Lung cancer Mother CAD (coronary artery disease) Other Diabetes Heart disease Hypertension Denies family history of Stroke Social History Smoking and tobacco/nicotine status: never used tobacco/nicotine Second hand smoke exposure: No Alcohol intake: never Substance/Drug Use: never Adopted: No Caregiver/support person: Yes Lives independently: No Household members: family Housing: House Marital status: Single Number of children: 0 service: No Current occupational status: disabled Do you think of yourself as: Straight/Heterosexual Current gender identity: Male Vitals/I&O/Wt Last Vital Signs Pulse 72 10/25/23 20:45 Resp 22 H 10/25/23 20:45 BP 112/63 10/25/23 20:45 Pulse Ox 93 10/25/23 20:45 O2 Del Method Oxymask 10/25/23 19:47 O2 Flow Rate 15 10/25/23 19:47 10/25/23 10/25/23 10/25/23 06:59 14:59 22:59 Intake Total 100 / 100 Balance 100 / 100 Weight last 48 hrs Weight 127.006 kg Physical Exam 2 Narrative: Family at bedside. Const: COMMON NORMALS: negative for alert ORIENTATION/CONSCIOUSNESS: not awake HENMT: COMMON NORMALS: oropharynx normal Neck/C-Spine: COMMON NORMALS: no JVD Resp: COMMON NORMALS: normal respiratory effort and clear to auscultation bilaterally AUSCULTATION: clear to auscultation bilaterally Cardio: COMMON NORMALS: no JVD, regular rhythm, S1 normal heart sound present, S2 normal heart sound present and No murmurs present (Cardio) RHYTHM: regular rhythm HEART SOUNDS: S1 normal heart sound present and S2 normal heart sound present GI: COMMON NORMALS: Normal to inspection, nondistended, normoactive bowel sounds present, Soft to palpation and non-tender PALPATION: Yes Soft to palpation Extremity: COMMON NORMALS: no joint enlargement and no pedal edema Neuro: COMMON NORMALS: patient oriented x3 and moves all extremities S ENSORIUM/ORIENTATION: Yes alert OTHER: Convulsive/seizure-like activity. Skin: COMMON NORMALS: no rashes or lesions noted GENERAL SKIN EXAM: no rashes or lesions noted Data 10/25/23 19:59 10/25/23 19:59 A&P Assessment and plan (1) Status epilepticus: Currently postictal. On presentation status epilepticus, received total 6 mg of Ativan, 1500 mg IV Keppra. Has had multiple breakthrough seizures in the past. Reviewed neurology note, Vimpat dose was going to be increased to 250 mg twice daily with continued Keppra 2000 mg twice daily, Dilantin 250 mg 3 times daily. Speaking with the family they had not started new Vimpat dosing as did not have a new prescription. As she is postictal/groggy, not yet currently able to take anything by mouth, currently will continue IV Keppra 2000 mg twice daily, Dilantin 250 mg 3 times daily as well as start new Vimpat dosing as planned by neurology. Monitor blood pressures, respiratory status with IV antiepileptic infusions. Continue oxygen support, wean off as tolerated. Seizure precautions with admission to ICU. Has been having headaches recently with assess with head CT. Reviewed vitals, CBC, CMP, phenytoin level, EKG, chest x-ray, ER note, discussed with ER physician. Plan Developmental delay. HTN: Monitor blood pressures Allergic rhinitis/conjunctivitis: Consider nasal corticosteroid once he is able to take it. Attestations 2 Medical Necessity Statement*: Place in observation for assessment management following status epilepticus and gentleman with underlying epilepsy. Diagnoses Status epilepticus G40.901
[2023-10-25 22:53] LABS: Magnesium 2.4 mg/dL (1.7-2.3)
[2023-10-25] MEDS: pantoprazole 40 mg SDV IVP (23:11)
[2023-10-25] MEDS: lidocaine 1% 5 ML in potassium chloride premix 100 ML 52.5 ML IV (23:18)
[2023-10-26] VITALS (89 sets, daily range): BP systolic 100–138; BP diastolic 40–83; PULSE 63–80; RESP 6–28; TEMP 36.5–36.9; O2SAT 96–99
[2023-10-26 01:33] LABS: Glucose Point of Care 152 mg/dL (70-110)
[2023-10-26 06:16] LABS: Basophils # 0.1 10^3/uL (0.0-0.1); Basophils % 0.3 %; Eosinophils # 0.1 10^3/uL (0.0-0.8); Eosinophils % 0.3 %; Hematocrit 43.1 % (37-53); Lymphocytes # 1.8 10^3/uL (0.8-4.8); Mean Corpuscular HGB Conc 34.6 g/dL (30-55); Mean Corpuscular Hemoglobin 34.3 pg (27-33); Mean Corpuscular Volume 99.3 fl (82-101); Mean Platelet Volume 9.3 fL (7.4-10.4); Monocytes # 2.1 10^3/uL (0.2-0.9); Monocytes % 9.4 %; Neutrophils # 18.01 10^3/uL (1.8-7.7); Neutrophils % 81.5 %; Nucleated Red Blood Cells % 0 %; Platelet Count 151 10^3/cmm (157-399); Red Blood Count 4.34 10^6/uL (3.85-5.65); Red Cell Distribution Width 13.7 % (12.1-15.1); White Blood Count 22.12 10^3/uL (3.29-11.43)
[2023-10-26 06:33] LABS: Alanine Aminotransferase 20 U/L (0-41); Albumin Level 3.8 g/dL (3.5-5.2); Alkaline Phosphatase 120 U/L (40-130); Anion Gap 16.1 (5-19); Aspartate Amino Transferase 20 U/L (0-40); Blood Urea Nitrogen 13 mg/dL (6-20); Calcium 8.8 mg/dL (8.5-10.5); Carbon Dioxide 22 mmol/L (22-29); Chloride 103 mmol/L (98-107); Creatinine Clr Calc Pharmacy 212.3301; Globulin 2.8 g/dL (1.3-4.6); Glucose 127 mg/dL (65-115); Osmolality Calculated 286 mOsm/kg (285-295); Potassium 4.1 mmol/L (3.5-5.1); Sodium 137 mmol/L (136-145); Total Bilirubin 0.5 mg/dL (0.15-1.2); Total Protein 6.6 g/dL (6.6-8.7)
[2023-10-26] MEDS: levETIRAcetam 2,000 MG/200 ML PREMIX 400 MG IV ×2 (08:29→21:08)
--- NOTE | 2023-10-26 08:54 | PC.PHAR ---
MEDICATIONS VERIFIED BY PTS MOTHER KATERIN [phone]- PT LIVES WITH HIS MOTHER
--- NOTE | 2023-10-26 09:01 | PM.PN ---
Subjective Subjective: Patient doing well Will be able to go back to the longterm Vitals/I&O/Wt Last Vital Signs Temp 98.2 F 10/27/23 04:00 Pulse 70 10/27/23 06:00 Resp 19 H 10/27/23 04:00 BP 128/86 10/27/23 04:00 Pulse Ox 98 10/26/23 12:30 O2 Del Method Nasal Cannula 10/25/23 22:04 O2 Flow Rate 15 10/25/23 19:47 10/26/23 10/27/23 10/27/23 22:59 06:59 14:59 Intake Total 800 / 1475 Output Total 1250 / 1250 900 / 2150 Balance -450 / 225 -900 / -675 Weight last 48 hrs Weight 127.006 kg Weight 127.459 kg Weight 127.459 kg Weight 127.006 kg Physical Exam Narrative: Awake and alert Able to make eye contact Asking for food No active seizures No active postictal state Hemodynamically stable Lower extremity venous's dermatitis No active cellulitis Urinary Catheter Management: Saenz: Cath Placed During This Visit: yes Reason for Continuing Indwelling Catheter: Accurate Measurement of Urinary Output in Critically Ill Patients Urinary Catheter Date of Insertion: 10/26/23 Urinary Catheter Time of Insertion: 01:24 Data 10/27/23 05:52 10/27/23 05:52 A&P Assessment and plan (1) Ileostomy in place: (2) Intellectual disability: (3) Intractable epilepsy: Qualifiers: Epilepsy type: partial idiopathic, localized onset Status epilepticus: with status epilepticus Qualified Code(s): G40.011 - Localization-related (focal) (partial) idiopathic epilepsy and epileptic syndromes with seizures of localized onset, intractable, with status epilepticus Plan Patient will be discharged on increased dose of Vimpat back to longterm Attestations Medical Necessity Statement*: Discharge later today Diagnoses Ileostomy in place Z93.2 Intellectual disability F79 Partial idiopathic epilepsy with seizures of localized onset, intractable, with status epilepticus G40.011 Epilepsy type: partial idiopathic, localized onset Status epilepticus: with status epilepticus
--- NOTE | 2023-10-26 12:44 | PM.DCS ---
Discharge Providers Date of Admission: 10/25/23 21:25 Date of Discharge: October 26, 2023 Attending Provider at Admission: Osmar Jimenez Attending Provider at Discharge: Nelia Castillo MD Primary Care Provider: NIRANJAN Drummond Diagnoses at Discharge Discharge Diagnosis (1) Status epilepticus: Status: Acute Reason for Visit Reason for Visit: seizures Hospital Course Hospital Course 52-year male with developmental delay, came from [facility], patient developed status epilepticus responded well to 6 mg of Ativan and 50 mg of Keppra loading dose, patient is able to eat, he is awake able to communicate to some extent, hemodynamic remained stable, he will discharge back to the [place] [facility] on 3 antiepileptics at this point. At the time of discharge antiepileptic dose would be lacosamide 250 mg twice a day, Dilantin 250 mg 3 times a day, Keppra 2000 mg twice a day CT head unremarkable no electrolyte imbalance Physical Exam Narrative: Developmental delay Able to answer simple question Not postictal Hemodynamically stable Venous stasis dermatitis Urinary Catheter Management: Saenz: Cath Placed During This Visit: yes Reason for Continuing Indwelling Catheter: Accurate Measurement of Urinary Output in Critically Ill Patients Urinary Catheter Date of Insertion: 10/26/23 Urinary Catheter Time of Insertion: 01:24 Discharge Data Studies Completed and Pending Completed Studies During Hospitalization Category Date Time Status CT head wo con* [id number] Routine Cat Scan 10/26/23 22:04 Completed CXRP [XR chest 1V portable [id number]] Stat Exams 10/25/23 19:46 Completed Pending at discharge Category Date Time Status Complete Blood Count w/Auto AM LABS Lab 10/27/23 04:00 Ordered Complete Blood Count w/Auto AM LABS Lab 10/28/23 04:00 Ordered Comprehensive Metabolic Panel AM LABS Lab 10/27/23 04:00 Ordered Comprehensive Metabolic Panel AM LABS Lab 10/28/23 04:00 Ordered Radiology Impressions Chest X-Ray 10/25/23 19:46 IMPRESSION: 1. Left lower lobe atelectasis versus infiltrate. 2. Cardiomegaly. 3. Mild pulmonary vascular congestion. Laboratory Results WBC 22.12 10^3/uL (3.29-11.43) H 10/26/23 06:09 RBC 4.34 10^6/uL (3.85-5.65) 10/26/23 06:09 Hgb 14.90 g/dL (11.27-16.99) 10/26/23 06:09 Hct 43.1 % (37-53) 10/26/23 06:09 MCV 99.3 fl (82-101) 10/26/23 06:09 MCH 34.3 pg (27-33) H 10/26/23 06:09 MCHC 34.6 g/dL (30-55) 10/26/23 06:09 RDW 13.7 % (12.1-15.1) 10/26/23 06:09 Plt Count 151 10^3/cmm (157-399) L 10/26/23 06:09 MPV 9.3 fL (7.4-10.4) 10/26/23 06:09 Neut % (Auto) 81.5 % 10/26/23 06:09 Lymph % (Auto) 8.0 % 10/26/23 06:09 [place] % (Auto) 9.4 % 10/26/23 06:09 Eos % (Auto) 0.3 % 10/26/23 06:09 Baso % (Auto) 0.3 % 10/26/23 06:09 Neut # (Auto) 18.01 10^3/uL (1.8-7.7) H 10/26/23 06:09 Lymph # (Auto) 1.8 10^3/uL (0.8-4.8) 10/26/23 06:09 [place] # (Auto) 2.1 10^3/uL (0.2-0.9) H 10/26/23 06:09 Eos # (Auto) 0.1 10^3/uL (0.0-0.8) 10/26/23 06:09 Baso # (Auto) 0.1 10^3/uL (0.0-0.1) 10/26/23 06:09 Nucleated RBC % (auto) 0 % 10/26/23 06:09 Nucleated RBCs # 0.0 /100WBC 10/26/23 06:09 Sodium 137 mmol/L (136-145) 10/26/23 06:09 Potassium 4.1 mmol/L (3.5-5.1) 10/26/23 06:09 Chloride 103 mmol/L (98-107) 10/26/23 06:09 Carbon Dioxide 22 mmol/L (22-29) 10/26/23 06:09 Anion Gap 16.1 (5-19) 10/26/23 06:09 BUN 13 mg/dL (6-20) 10/26/23 06:09 Creatinine 0.6 mg/dL (0.7-1.2) L 10/26/23 06:09 GFR Calculation 142.0 mL/min (90-130) H 10/26/23 06:09 Glucose 127 mg/dL (65-115) H 10/26/23 06:09 POC Glucose 152 mg/dL (70-110) H 10/25/23 19:18 Calculated Osmolality 286 mOsm/kg (285-295) 10/26/23 06:09 Calcium 8.8 mg/dL (8.5-10.5) 10/26/23 06:09 Magnesium 2.4 mg/dL (1.7-2.3) H 10/25/23 19:59 Total Bilirubin 0.5 mg/dL (0.15-1.2) 10/26/23 06:09 AST 20 U/L (0-40) 10/26/23 06:09 ALT 20 U/L (0-41) 10/26/23 06:09 Alkaline Phosphatase 120 U/L (40-130) 10/26/23 06:09 Total Protein 6.6 g/dL (6.6-8.7) 10/26/23 06:09 Albumin 3.8 g/dL (3.5-5.2) 10/26/23 06:09 Globulin 2.8 g/dL (1.3-4.6) 10/26/23 06:09 Phenytoin 11.1 ug/mL (10-20) 10/25/23 19:59 Vitals Last Vital Signs Temp 97.9 F 10/26/23 09:30 Pulse 73 10/26/23 09:30 Resp 21 H 10/26/23 09:30 BP 123/66 10/26/23 09:30 Pulse Ox 97 10/26/23 09:30 O2 Del Method Nasal Cannula 10/25/23 22:04 O2 Flow Rate 15 10/25/23 19:47 Discharge Plan Discharge Patient Disposition: Xfer Other Condition: Stable Prescriptions: New lacosamide [Vimpat] 50 mg tablet 250 mg PO BID 60 Days Qty: 600 4RF Continued (DME) Compression hose 30/40 See Rx Instructions .Route .MEDSUPPLY Qty: 1 2RF Rx Instructions: Measure to fit A6531 (DME) Diabetic Shoes with 3 pairs of inserts See Rx Instructions .ROUTE .MEDSUPPLY Qty: 1 0RF Rx Instructions: As directed by HOME trazodone 100 mg tablet 100 mg PO BEDTIME Qty: 30 2RF (DME) Compression hose 18/30 See Rx Instructions Rx Instructions: Measure for size A6530 levetiracetam 1,000 mg tablet 2,000 mg PO BID Changed phenytoin 50 mg tablet,chewable 250 mg PO Q8H Qty: 90 0RF Discontinued lacosamide [Vimpat] 200 mg tablet 200 mg PO BID Qty: 60 5RF Referrals: Candi Latif FNP-C [Primary Care Provider] - Patient Instructions: Opioid Safety Discharge Attestations Time Spent in Discharge Care*: less than 30 min Status at Discharge: Cognitive status at discharge: moderately impaired cognition, Behavioral status at discharge: cooperative, Quality Metrics Clinical Quality Measures [ No reported AMI, CVA or VTE this stay] Coding Level of Care Code Acute Code for Chg Fwd Diagnoses Status epilepticus G40.901
[2023-10-26] MEDS: pantoprazole 40 mg SDV IVP (21:08)
[2023-10-26] MEDS: [UNRECOGNIZED DRUG - REMARK] 104 MG IV (21:31)
--- NOTE | 2023-10-26 22:04 | CT_ITS ---
WS: [id number] CT HEAD NONCONTRAST HISTORY: Seizures TECHNIQUE: Contiguous axial imaging performed through the brain in 2.5 mm imaging. Bone and soft tiss ue windows. Sagittal and coronal reformats reviewed. All CT scans at [facility] use at least one of these dose optimization techniques: automated exposure control; mA and/or kV adjustment per pa tient size (includes targeted exams where dose is matched to clinical indication); or iterative recon struction. DLP: 1220.18 mGy.cm COMPARISON: 04/16/2023 No acute intracranial hemorrhage, midline shift or mass effect. . Mild atrophy. No large area of encephalomalacia. No hemorrhage. Ventricles: Normal size with no hydrocephalus. Paranasal sinuses: Moderate size mucus retention cyst in the LEFT maxillary sinus. No air-fluid level s within the sinuses. Mastoid air cells: Increased soft tissue RIGHT external auditory canal abuts to the tympanic membrane . This is not new. Calvarium and scalp: Skull is intact with no soft tissue edema or swelling. IMPRESSION: 1. Stable noncontrast head CT. 2. No acute intracranial hemorrhage or edema. 3. Mild atrophy.
[2023-10-27] VITALS (16 sets, daily range): BP systolic 113–153; BP diastolic 69–105; PULSE 63–75; RESP 5–22; TEMP 36.8–37.1; O2SAT 93
[2023-10-27 06:00] LABS: Basophils # 0.1 10^3/uL (0.0-0.1); Basophils % 0.5 %; Eosinophils # 0.5 10^3/uL (0.0-0.8); Eosinophils % 3.3 %; Lymphocytes # 1.8 10^3/uL (0.8-4.8); Lymphocytes % 12.1 %; Mean Corpuscular HGB Conc 34.5 g/dL (30-55); Mean Corpuscular Hemoglobin 34.1 pg (27-33); Mean Corpuscular Volume 98.8 fl (82-101); Mean Platelet Volume 9.2 fL (7.4-10.4); Monocytes # 1.6 10^3/uL (0.2-0.9); Monocytes % 10.9 %; Neutrophils # 10.93 10^3/uL (1.8-7.7); Neutrophils % 72.7 %; Nucleated Red Blood Cells % 0 %; Platelet Count 127 10^3/cmm (157-399); Red Blood Count 4.25 10^6/uL (3.85-5.65); Red Cell Distribution Width 13.8 % (12.1-15.1)
[2023-10-27 06:22] LABS: Alanine Aminotransferase 16 U/L (0-41); Albumin Level 3.7 g/dL (3.5-5.2); Alkaline Phosphatase 108 U/L (40-130); Blood Urea Nitrogen 12 mg/dL (6-20); Calcium 8.9 mg/dL (8.5-10.5); Carbon Dioxide 25 mmol/L (22-29); Chloride 105 mmol/L (98-107); Creatinine Clr Calc Pharmacy 211.9568; Globulin 2.8 g/dL (1.3-4.6); Glucose 95 mg/dL (65-115); Osmolality Calculated 290 mOsm/kg (285-295); Sodium 140 mmol/L (136-145); Total Bilirubin 0.7 mg/dL (0.15-1.2); Total Protein 6.5 g/dL (6.6-8.7)
[2023-10-27 06:35] LABS: Anion Gap 14.2 (5-19); Aspartate Amino Transferase 25 U/L (0-40); Potassium 4.2 mmol/L (3.5-5.1)
--- NOTE | 2023-10-27 08:01 | P.DS_ITS ---
Discharge Providers Date of Admission: 10/25/23 21:25 Date of Discharge: October 27, 2023 Attending Provider at Admission: Osmar Jimenez Attending Provider at Discharge: Nelia Castillo MD Primary Care Provider: NIRANJAN Drummond Diagnoses at Discharge Discharge Diagnosis (1) Status epilepticus: Status: Acute Reason for Visit Reason for Visit: seizures Hospital Course Hospital Course 52-year male with developmental delay, came from skilled nursing, patient developed status epilepticus responded well to 6 mg of Ativan and 50 mg of Keppra loading dose, patient is able to eat, he is awake able to communicate to some extent, hemodynamic remained stable, he will discharge back to the skilled nursing on 3 antiepileptics at this point. At the time of discharge antiepileptic dose would be lacosamide 250 mg twice a day, Dilantin 250 mg 3 times a day, Keppra 2000 mg twice a day CT head unremarkable no electrolyte imbalance Physical Exam Urinary Catheter Management: Saenz: Cath Placed During This Visit: yes Reason for Continuing Indwelling Catheter: Accurate Measurement of Urinary Output in Critically Ill Patients Urinary Catheter Date of Insertion: 10/26/23 Urinary Catheter Time of Insertion: 01:24 Discharge Data Studies Completed and Pending Completed Studies During Hospitalization Category Date Time Status CT head wo con* [id number] Routine Cat Scan 10/26/23 22:04 Completed CXRP [XR chest 1V portable [id number]] Stat Exams 10/25/23 19:46 Completed Pending at discharge Category Date Time Status Complete Blood Count w/Auto AM LABS Lab 10/28/23 04:00 Ordered Comprehensive Metabolic Panel AM LABS Lab 10/28/23 04:00 Ordered Radiology Impressions Chest X-Ray 10/25/23 19:46 IMPRESSION: 1. Left lower lobe atelectasis versus infiltrate. 2. Cardiomegaly. 3. Mild pulmonary vascular congestion. Laboratory Results WBC 15.00 10^3/uL (3.29-11.43) H 10/27/23 05:52 RBC 4.25 10^6/uL (3.85-5.65) 10/27/23 05:52 Hgb 14.50 g/dL (11.27-16.99) 10/27/23 05:52 Hct 42.0 % (37-53) 10/27/23 05:52 MCV 98.8 fl (82-101) 10/27/23 05:52 MCH 34.1 pg (27-33) H 10/27/23 05:52 MCHC 34.5 g/dL (30-55) 10/27/23 05:52 RDW 13.8 % (12.1-15.1) 10/27/23 05:52 Plt Count 127 10^3/cmm (157-399) L 10/27/23 05:52 MPV 9.2 fL (7.4-10.4) 10/27/23 05:52 Neut % (Auto) 72.7 % 10/27/23 05:52 Lymph % (Auto) 12.1 % 10/27/23 05:52 [place] % (Auto) 10.9 % 10/27/23 05:52 Eos % (Auto) 3.3 % 10/27/23 05:52 Baso % (Auto) 0.5 % 10/27/23 05:52 Neut # (Auto) 10.93 10^3/uL (1.8-7.7) H 10/27/23 05:52 Lymph # (Auto) 1.8 10^3/uL (0.8-4.8) 10/27/23 05:52 [place] # (Auto) 1.6 10^3/uL (0.2-0.9) H 10/27/23 05:52 Eos # (Auto) 0.5 10^3/uL (0.0-0.8) 10/27/23 05:52 Baso # (Auto) 0.1 10^3/uL (0.0-0.1) 10/27/23 05:52 Nucleated RBC % (auto) 0 % 10/27/23 05:52 Nucleated RBCs # 0.0 /100WBC 10/27/23 05:52 Sodium 140 mmol/L (136-145) 10/27/23 05:52 Potassium 4.2 mmol/L (3.5-5.1) 10/27/23 05:52 Chloride 105 mmol/L (98-107) 10/27/23 05:52 Carbon Dioxide 25 mmol/L (22-29) 10/27/23 05:52 Anion Gap 14.2 (5-19) 10/27/23 05:52 BUN 12 mg/dL (6-20) 10/27/23 05:52 Creatinine 0.6 mg/dL (0.7-1.2) L 10/27/23 05:52 GFR Calculation 142.0 mL/min (90-130) H 10/27/23 05:52 Glucose 95 mg/dL (65-115) 10/27/23 05:52 POC Glucose 152 mg/dL (70-110) H 10/25/23 19:18 Calculated Osmolality 290 mOsm/kg (285-295) 10/27/23 05:52 Calcium 8.9 mg/dL (8.5-10.5) 10/27/23 05:52 Magnesium 2.4 mg/dL (1.7-2.3) H 10/25/23 19:59 Total Bilirubin 0.7 mg/dL (0.15-1.2) 10/27/23 05:52 AST 25 U/L (0-40) 10/27/23 05:52 ALT 16 U/L (0-41) 10/27/23 05:52 Alkaline Phosphatase 108 U/L (40-130) 10/27/23 05:52 Total Protein 6.5 g/dL (6.6-8.7) L 10/27/23 05:52 Albumin 3.7 g/dL (3.5-5.2) 10/27/23 05:52 Globulin 2.8 g/dL (1.3-4.6) 10/27/23 05:52 Phenytoin 11.1 ug/mL (10-20) 10/25/23 19:59 Vitals Last Vital Signs Temp 98.2 F 10/27/23 04:00 Pulse 70 10/27/23 06:00 Resp 19 H 10/27/23 04:00 BP 128/86 10/27/23 04:00 Pulse Ox 98 10/26/23 12:30 O2 Del Method Nasal Cannula 10/25/23 22:04 O2 Flow Rate 15 10/25/23 19:47 Discharge Plan Discharge Patient Disposition: Xfer SNF Condition: Stable Prescriptions: New Vimpat 50 mg tablet 250 mg PO BID 60 Days Qty: 600 4RF Continued (DME) Compression hose 30/40 See Rx Instructions .Route .MEDSUPPLY Qty: 1 2RF Rx Instructions: Measure to fit A6531 (DME) Diabetic Shoes with 3 pairs of inserts See Rx Instructions .ROUTE .MEDSUPPLY Qty: 1 0RF Rx Instructions: As directed by HOME trazodone 100 mg tablet 100 mg PO BEDTIME Qty: 30 2RF (DME) Compression hose See Rx Instructions Rx Instructions: Measure for size A6530 levetiracetam 1,000 mg tablet 2,000 mg PO BID Changed phenytoin 50 mg tablet,chewable 250 mg PO Q8H Qty: 90 0RF Discontinued lacosamide [Vimpat] 200 mg tablet 200 mg PO BID Qty: 60 5RF Discharge Orders: Discharge Order (Routine); Ordered 10/27/23 Ordered By: Nelia Castillo Referrals: Candi Latif, [facility] [Primary Care Provider] - Patient Instructions: Lacosamide (By mouth), Epilepsy (DC), Opioid Safety, Seizures Discharge Attestations Time Spent in Discharge Care*: less than 30 min Status at Discharge: Cognitive status at discharge: moderately impaired cognition , Behavioral status at discharge: cooperative , Quality Metrics Clinical Quality Measures [ No reported AMI, CVA or VTE this stay] Coding Level of Care Code Acute Code for Chg Fwd Diagnoses Status epilepticus G40.901
[2023-10-27] MEDS: levETIRAcetam 2,000 MG/200 ML PREMIX 400 MG IV (09:08)
[2023-10-27] MEDS: [UNRECOGNIZED DRUG - REMARK] 104 MG IV (09:08)
--- NOTE | 2023-10-27 11:04 | PC.NURSE ---
Patient mother and sister at bedside for verbal discharge information. Written packet also provided. Medications at discharge reviewed as well as follow up appointment with primary care in [facility]. IV removed, no complications. No questions from patient or family at the time of discharge. Medication at [facility] pharmacy. All belongings with patient at discharge.
== END 2023-10-27 10:00 | disposition home or self-care (01) ==
LOC: ER 21:10 → ICU 21:25
PROVIDERS: Admitting Provider Internal Medicine; Emergency Provider Emergency Medicine; PCP Nurse Practitioner; Visit Provider Internal Medicine
DX: G40.011 Localization-related (focal) (partial) idiopathic epilepsy and epileptic syndromes with seizures of localized onset, intractable, with status epilepticus (principal); Z93.2 Ileostomy status; F79 Unspecified intellectual disabilities; E66.01 Morbid (severe) obesity due to excess calories; Z68.34 Body mass index [BMI] 34.0-34.9, adult; I10 Essential (primary) hypertension; Z90.49 Acquired absence of other specified parts of digestive tract
CPT/HCPCS: 36415; 36416; 51702; 70450; 71045; 80053; 80185; 82962; 83735; 85025; 93005; 96365; 96375; 96376; 97161; 99285; 99291; C9113; C9254; G0378; J1165; J1953; J2060; J3480

== ENCOUNTER → 2023-11-16 11:52 | Outpatient (BNVA) | payer MEDICARE, MEDICAID, SELFPAY | PROVIDERS: PCP Nurse Practitioner; Visit Provider Nurse Practitioner | DX: K05.6 Periodontal disease, unspecified (principal); K06.9 Disorder of gingiva and edentulous alveolar ridge, unspecified | CPT/HCPCS: 85025 ==

== ENCOUNTER → 2023-11-23 08:45 | Outpatient (BNVA) | payer MEDICARE, MEDICAID, SELFPAY | PROVIDERS: PCP Nurse Practitioner; Visit Provider Specialist | DX: G40.011 Localization-related (focal) (partial) idiopathic epilepsy and epileptic syndromes with seizures of localized onset, intractable, with status epilepticus (principal) | CPT/HCPCS: 99214 ==

== ENCOUNTER 2024-01-01 07:07 | Inpatient (IN) | payer MEDICARE, MEDICAID, SELFPAY ==
[2024-01-01] VITALS (86 sets, daily range): BP systolic 97–148; BP diastolic 55–89; PULSE 66–106; RESP 6–20; TEMP 37.1–38.8; O2SAT 81–100; BMI 35.2
[2024-01-01] MEDS: etomidate 2 mg/mL INJ SDV 10 mL 20 MG IVP (07:16)
[2024-01-01] MEDS: vecuronium 10 mg SDV IVP (07:16)
--- NOTE | 2024-01-01 07:21 | XRR_ITS ---
PROCEDURE INFORMATION: Exam: XR Chest Exam date and time: 01/01/2024 7:26 AM Age: 53 years old Clinical indication: Device placement; Ett placement (vent status); Additional info: Post intubation TECHNIQUE: Imaging protocol: Radiologic exam of the chest. Views: 1 view. COMPARISON: CR XR chest 1V portable [id number] 10/25/2023 8:00 PM FINDINGS: Tubes, catheters and devices: ETT tip is 37 mm from the level of the jim. Lungs: Left CP angle is clipped from the field of view. Similar mild left basilar lung reticulonodular opacities.. Pleural spaces: Unremarkable. No pleural effusion demonstrated. No pneumothorax demonstrated. Heart/Mediastinum: Unremarkable. No cardiomegaly. Bones/joints: No suspicious osseous findings XR/XR chest 1V portable [id number] IMPRESSION: Similar left basilar lung opacities .
--- NOTE | 2024-01-01 07:25 | CTR_ITS ---
PROCEDURE INFORMATION: Exam: CT Head Without Contrast Exam date and time: 01/01/2024 12:20 PM Age: 53 years old Clinical indication: Altered mental status/memory loss; Additional info: AMS TECHNIQUE: Imaging protocol: Computed tomography of the head without contrast. Radiation optimization: All CT scans at this facility use at least one of these dose optimization techniques: automated exposure control; mA and/or kV adjustment per patient size (includes targeted exams where dose is matched to clinical indication); or iterative reconstruction. COMPARISON: CT head wo con* [id number] 10/26/2023 7:43 AM RADIATION DOSE METRICS: Total DLP (mGy-cm): 1068.48 FINDINGS: Brain: Mild stable diffuse parenchymal volume loss. No hemorrhage. Unremarkable white matter. No mass effect. Cerebral ventricles: No ventriculomegaly. Paranasal sinuses: There is a mucous retention cyst in the right maxillary sinus. Mucosal disease in the left sphenoid sinus and ethmoid air cells. Mastoid air cells: Visualized mastoid air cells are well aerated. Bones: Unremarkable. No acute fracture. Soft tissues: Unremarkable. CT/CT head wo con* [id number] IMPRESSION: No large territorial infarct or intracranial bleed.
--- NOTE | 2024-01-01 07:27 | PC.PHAR ---
pts mother faheem verified pts medications-pts mother states pt is taking levetiracetam 1,000mg takes 2,000mg (two tabs) bid there was an rx written 11/23/23 3,000mg bid ext doesnt show the 3,000mg bid filled-pts mother states the pt is not taking any otc medications
--- NOTE | 2024-01-01 07:28 | W.ED.SEIZURE ---
HPI - Seizure General: Chief Complaint: Seizure Stated Complaint: SEIZURES Time Seen by Provider: 01/01/24 07:08 Source: patient Mode of arrival: ambulatory History of Present Illness: HPI Narrative: 53-year-old male with a long history of seizures presented to the emergency room via EMS. Report was called and that he had had seizures and was given 10 mg Ativan. On arrival patient is hypoxic is in status epilepticus. Patient unable to give any further history we were later able to find that he had been brought in from home. Patient was emergently RSI did after arrival as he was in severe respiratory distress unable to control secretions and required extensive suctioning prior to being able to intubate due to the amount of vomitus in the posterior pharynx. MD complaint: seizure Seizure History: Yes Review of Systems General: Reports: ROS unobtainable due to medical condition and ROS unobtainable due to mental status [facility] ED PFSH: Medical History Status epilepticus Generalized seizure Developmental disorder Frontal lobe epilepsy Cellulitis of oral soft tissues Endotracheally intubated Status epilepticus Essential hypertension Generalized epilepsy Morbid obesity Hypertension Intellectual disability Peripheral vascular disease Venous stasis dermatitis Leukocytosis Seizure Surgical History History of laparoscopic cholecystectomy History of total colectomy August 2022 S/P vein stripping Family History Father Cancer Lung cancer Mother CAD (coronary artery disease) Other Diabetes Heart disease Hypertension Denies family history of Stroke Social History Smoking and tobacco/nicotine status: never used tobacco/nicotine Second hand smoke exposure: No Alcohol intake: never Substance/Drug Use: never Adopted: No Caregiver/support person: Yes Lives independently: No Household members: family Housing: House Marital status: Single Number of children: 0 service: No Current occupational status: disabled Do you think of yourself as: Straight/Heterosexual Current gender identity: Male Physical Exam Const: NUTRITIONAL APPEARANCE: obese OTHER: Postictal nonresponsive HENMT: COMMON NORMALS: atraumatic HEAD & SCALP: atraumatic OTHER: Enlarged frontal bone Resp: EFFORT & INSPECTION: Yes abnormal respiratory pattern and Yes respiratory distress OTHER: Acute respiratory distress with gurgling breath sounds oxygen sats in the 80s required emergent intubation impending respiratory failure Cardio: COMMON NORMALS: regular rhythm and No murmurs present (Cardio) RATE: tachycardic RHYTHM: regular rhythm GI: COMMON NORMALS: Soft to palpation and No hepatosplenomegaly present AUSCULTATION: Yes normoactive bowel sounds PALPATION: Yes Soft to palpation, No Guarding due to palpation present (GI) and Yes No hepatosplenomegaly present OTHER: Ileostomy in the right lower quadrant stool in the bag no hematochezia Extremity: COMMON NORMALS: normal to inspection, capillary refill normal, no clubbing, cyanosis or edema, no calf tenderness and no pedal edema Procedures Intubation Time out performed: No sedative: Etomidate Mg Given: 20 paralytic: Vecuronium Mg Given: 10 Laryngoscope: fiber optic video scope Assist Device Used: fiber optic device ET Tube Size: 8.5 ET Tube Uncuffed: Yes Tube Secured Depth (cm): 24 Tube Secured Location: teeth Tube Placement Confirmation: visualized tube passing through cords, equal breath sounds bilaterally, no breath sounds over epigastrium and confirmation by capnometry Additional Comments: Initial attempted intubation was a large amount of vomitus in the posterior pharynx was suctioned however the laryngoscope was filed it was removed and the patient was bagged laryngoscope was cleared however when we attempted intubation was unable to get a good visual picture of the cords a new laryngoscope blade was placed while that was being done the patient was bagged again. Once the new blade was placed we were able to visualize the cords easily and intubated without difficulty Course Vital Signs: Vital signs: Vital Signs Temperature 102 F H 01/01/24 07:08 Pulse Rate 70 01/01/24 10:15 Respiratory Rate 16 01/01/24 10:15 Blood Pressure 114/68 01/01/24 10:15 Pulse Oximetry 96 01/01/24 09:55 Oxygen Delivery Me thod Mechanical Ventil ation 01/01/24 07:59 Fraction of Inspir ed Oxygen 100 01/01/24 07:36 MDM - Seizure MDM Narrative Medical decision making narrative: Patient arrives and impending respiratory arrest he was emergently intubated immediately after arrival. He had been given 10 mg of Ativan and route. See intubation note. Patient does meet criteria for sepsis. Initially ordered the full fluid bolus however given his weight with a BMI greater than 30 readjusted the fluid bolus for to reflect ideal body weight with a BMI of 25 for his height which calculates to 2800 mL. The fluid bolus off of his actual weight would likely significantly fluid overload him, and further complicate his course of care. Patient has significant cystitis has been started on IV antibiotics given fluid bolus we will continue him on the sedation we did have to add propofol. He has not had any further seizures neurology consulted will admit to the ICU. Lab Data 01/01/24 07:30 01/01/24 07:30 Labs: Radiology Impressions Chest X-Ray 01/01/24 07:21 IMPRESSION: Similar left basilar lung opacities . Laboratory Results WBC 32.48 10^3/uL (3.29-11.43) H* 01/01/24 07:30 RBC 4.54 10^6/uL (3.85-5.65) 01/01/24 07:30 Hgb 15.20 g/dL (11.27-16.99) 01/01/24 07:30 Hct 44.4 % (37-53) 01/01/24 07:30 MCV 97.8 fl (82-101) 01/01/24 07:30 MCH 33.5 pg (27-33) H 01/01/24 07:30 MCHC 34.2 g/dL (30-55) 01/01/24 07:30 RDW 13.8 % (12.1-15.1) 01/01/24 07:30 Plt Count 154 10^3/cmm (157-399) L 01/01/24 07:30 MPV 10.2 fL (7.4-10.4) 01/01/24 07:30 Neut % (Auto) 84.1 % 01/01/24 07:30 Lymph % (Auto) 4.8 % 01/01/24 07:30 Andrew % (Auto) 9.2 % 01/01/24 07:30 Eos % (Auto) 0.7 % 01/01/24 07:30 Baso % (Auto) 0.2 % 01/01/24 07:30 Neut # (Auto) 27.31 10^3/uL (1.8-7.7) H 01/01/24 07:30 Lymph # (Auto) 1.6 10^3/uL (0.8-4.8) 01/01/24 07:30 Andrew # (Auto) 3.0 10^3/uL (0.2-0.9) H 01/01/24 07:30 Eos # (Auto) 0.2 10^3/uL (0.0-0.8) 01/01/24 07:30 Baso # (Auto) 0.1 10^3/uL (0.0-0.1) 01/01/24 07:30 Nucleated RBC % (auto) 0 % 01/01/24 07:30 Nucleated RBCs # 0.0 /100WBC 01/01/24 07:30 Specimen Type Arterial 01/01/24 07:28 Sample Site Radial, left 01/01/24 07:28 ABG pH 7.31 (7.35-7.45) L 01/01/24 07: ABG pCO2 42.2 mmHg (35-45) 01/01/24 07: ABG pO2 222.0 mmHg (80.0-100.0) H 01/01/24 07:28 ABG PO2/FiO2 Ratio 0 01/01/24 07: ABG HCO3 21.0 mmol/L (22-26) L 01/01/24 07:28 ABG O2 Saturation > 100.0 01/01/24 07: ABG Base Excess -5.1 mmol/L (-2.0-2.0) L 01/01/24 07:28 Ricardo Test Pos 01/01/24 07:28 A-a O2 Gradient 56.3 mmHg (5-10) H 01/01/24 07:28 Hematocrit 45.3 % (42-52) 01/01/24 07:28 Hgb O2 Saturation 98.1 % (95-100) 01/01/24 07:28 Carboxyhemoglobin 1.8 %THgb (0.4-20.1) 01/01/24 07:28 Methemoglobin 0.7 % (0.4-1.5) 01/01/24 07:28 Total Hemoglobin 14.8 g/dL (14-18) 01/01/24 07:28 Sodium 139.0 mmol/L (131-143) 01/01/24 07:28 Potassium 3.5 mmol/L (3.5-5.0) 01/01/24 07:28 Glucose 135.0 mg/dL (70-115) H 01/01/24 07:28 Ionized Calcium 1.2 mmol/L (1.1-1.4) 01/01/24 07:28 O2 Delivery Device Vent 01/01/24 07:28 FiO2 100.0 % 01/01/24 07:28 Tidal Volume 0.55 01/01/24 07:28 PEEP 10.0 cmH20 01/01/24 07:28 Experienced Truck Driver ID Gd 01/01/24 07:28 Sodium 133 mmol/L (136-145) L 01/01/24 07:30 Potassium 3.7 mmol/L (3.5-5.1) 01/01/24 07:30 Chloride 96 mmol/L (98-107) L 01/01/24 07:30 Carbon Dioxide 17 mmol/L (22-29) L 01/01/24 07:30 Anion Gap 23.7 (5-19) H 01/01/24 07:30 BUN 10 mg/dL (6-20) 01/01/24 07:30 Creatinine 0.8 mg/dL (0.7-1.2) 01/01/24 07:30 GFR Calculation 101.5 mL/min (90-130) 01/01/24 07:30 Glucose 135 mg/dL (65-115) H 01/01/24 07:30 Calculated Osmolality 277 mOsm/kg (285-295) L 01/01/24 07:30 Lactic Acid 7.3 mmol/L (0.5-2.2) H* 01/01/24 07:30 Calcium 9.0 mg/dL (8.5-10.5) 01/01/24 07:30 Magnesium 2.0 mg/dL (1.7-2.3) 01/01/24 07:30 Total Bilirubin 0.6 mg/dL (0.15-1.2) 01/01/24 07:30 AST 30 U/L (0-40) 01/01/24 07:30 ALT 20 U/L (0-41) 01/01/24 07:30 Alkaline Phosphatase 124 U/L (40-130) 01/01/24 07:30 Ammonia 68 umol/L (16-60) H 01/01/24 07:30 Creatine Kinase 65 U/L (39-308) 01/01/24 07:30 Troponin T Baseline 25 ng/L (0-15) H 01/01/24 07:30 NT-Pro-B Natriuret Pep 167 pg/mL (0-125) H 01/01/24 07:30 Total Protein 7.3 g/dL (6.6-8.7) 01/01/24 07:30 Albumin 4.1 g/dL (3.5-5.2) 01/01/24 07:30 Globulin 3.2 g/dL (1.3-4.6) 01/01/24 07:30 Lipase 19 U/L (13-60) 01/01/24 07:30 Urine Color Yellow (Yellow) 01/01/24 08:05 Urine Appearance Cloudy (CLEAR) A 01/01/24 08:05 Urine pH 5 (5-7) 01/01/24 08:05 Ur Specific [place] 1.030 (1.005-1.030) 01/01/24 08:05 Urine Protein Neg (Negative) 01/01/24 08:05 Urine Glucose (UA) 1+ (Normal) H 01/01/24 08:05 Urine Ketones 1+ (Negative) H 01/01/24 08:05 Urine Blood 2+ (Negative) H 01/01/24 08:05 Urine Nitrate Positive (Negative) H 01/01/24 08:05 Urine Bilirubin Neg (Negative) 01/01/24 08:05 Urine Urobilinogen Norm mg/dL (Negative) 01/01/24 08:05 Ur Leukocyte Esterase 2+ (Negative) H 01/01/24 08:05 Urine RBC 5-10 /hpf (0-2) H 01/01/24 08:05 Urine WBC >100 /hpf (0-5) H 01/01/24 08:05 Ur Squamous Epith Cells 0-4 /hpf (0-5) H 01/01/24 08:05 Amorphous Sediment Not Reportable 01/01/24 08:05 Urine Bacteria 2+ /hpf (NONE) H 01/01/24 08:05 Coarse Granular Casts 15-25 /lpf H 01/01/24 08:05 Salicylates < 0.3 mg/dL (3-10) L 01/01/24 07:30 Urine Opiates Screen Negative ng/mL (Negative) 01/01/24 08:05 Ur Barbiturates Screen Positive ng/mL (Negative) H 01/01/24 08:05 Phenytoin 10.3 ug/mL (10-20) 01/01/24 07:30 Ur Phencyclidine Scrn Negative ng/mL (Negative) 01/01/24 08:05 Ur Amphetamines Screen Negative ng/mL (Negative) 01/01/24 08:05 U Benzodiazepines Scrn Positive ng/mL (Negative) H 01/01/24 08:05 Urine Cocaine Screen Negative ng/mL (Negative) 01/01/24 08:05 U Marijuana (THC) Screen Negative ng/mL (Negative) 01/01/24 08:05 Ethyl Alcohol < 10 mg/dL (0-10) 01/01/24 07:30 All radiology interpretation(s) finalized by discharge Critical Care Time Critical Care Time: Critical Care Time: Yes Total Critical Care Time: 60 Attestation: The high probability of a clinically significant, sudden or life threatening deterioration of the patient's cardiovascular respiratory system(s) required my full and direct attention, intervention and personal management. The critical care time is as shown. This time is in addition to time spent performing any reported procedures but includes the following: [x] Data and vital sign review and interpretation [x] Patient assessment, examination and intervention [x] Documentation [x] Medication orders and management Discharge Plan Discharge Patient Disposition: Admitted As Inpatient Admit Provider: Mg Wilson Clinical Impression: Acute hypoxic respiratory failure, Status epilepticus, Aspiration pneumonia, Hyponatremia, Cystitis, Sepsis, Elevated troponin Condition: Stable Coding Level of Care Code ED Network Operations Analyst for Antonio Avila
--- NOTE | 2024-01-01 07:28 | PC.NURSE ---
RSI 0716 20 etomidate 10 vecuronium 0718 8.5 ETT 21@ lip
--- NOTE | 2024-01-01 07:35 | PC.NURSE ---
VERBAL ORDERS FROM DR. PASTOR FOR AN IV PUSH OF 100MCG OF FENTANYL AND 5MG OF VERSED BEFORE STARTING IV BOLUS OF VERSED AND FENTANYL.
--- NOTE | 2024-01-01 07:35 | ECG_ITS ---
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 Measurements Intervals [place] Rate: 87 P: 46 ND: 168 QRS: 75 QRSD: 148 T: 44 QT: 395 QTc: 476 Interpretive Statements SINUS RHYTHM RIGHT BUNDLE BRANCH BLOCK [120+ ms QRS DURATION, UPRIGHT V1, 40+ ms S IN I/aVL/V4/V5/V6] Compared to ECG 10/25/2023 19:54:00 No significant changes Electronically Signed On 01-02-2024 12:45:39 CDT by Mandeep Chen M.D. [id number]
[2024-01-01 07:37] LABS: Basophils # 0.1 10^3/uL (0.0-0.1); Basophils % 0.2 %; Eosinophils # 0.2 10^3/uL (0.0-0.8); Eosinophils % 0.7 %; Hematocrit 44.4 % (37-53); Lymphocytes # 1.6 10^3/uL (0.8-4.8); Lymphocytes % 4.8 %; Mean Corpuscular HGB Conc 34.2 g/dL (30-55); Mean Corpuscular Hemoglobin 33.5 pg (27-33); Mean Corpuscular Volume 97.8 fl (82-101); Mean Platelet Volume 10.2 fL (7.4-10.4); Monocytes % 9.2 %; Neutrophils # 27.31 10^3/uL (1.8-7.7); Neutrophils % 84.1 %; Nucleated Red Blood Cells % 0 %; Platelet Count 154 10^3/cmm (157-399); Red Blood Count 4.54 10^6/uL (3.85-5.65); Red Cell Distribution Width 13.8 % (12.1-15.1)
[2024-01-01] MEDS: midazolam hcl 100 MG/100 ML BAG IV (07:39)
[2024-01-01] MEDS: fentaNYL 1,000 MCG/100 ML BAG 7.5 MCG IV (07:39)
[2024-01-01 07:41] LABS: White Blood Count 32.48 10^3/uL (3.29-11.43)
[2024-01-01 07:48] LABS: ABG PCO2 42.2 mmHg (35-45); ABG PH Result 7.31 (7.35-7.45); Alveolar-Arterial Oxygen Gradi 56.3 mmHg (5-10); Arterial Blood Gas Hematocrit 45.3 % (42-52); Base Excess ABG -5.1 mmol/L (-2.0-2.0); Blood Gas Allen Test Pos; Blood Gas Operator Identificat GD; Blood Gas Sample Site Radial, left; Blood Gas Sample Type Arterial; Blood Gas Tidal Volume 0.55; Carboxyhemoglobin 1.8 %THgb (0.4-20.1); HGB O2 Sat 98.1 % (95-100); Ionized Calcium Level - ABG 1.2 mmol/L (1.1-1.4); Methemoglobin 0.7 % (0.4-1.5); Oxygen Device VENT; Oxygen Saturation ABG > 100.0; PO2 FiO2 Ratio Arterial Blood 0; Potassium Level - ABG 3.5 mmol/L (3.5-5.0); Total Hemoglobin 14.8 g/dL (14-18)
[2024-01-01] MEDS: levETIRAcetam 1,000 MG/100 ML PREMIX 400 MG IV ×3 (07:49→23:27)
[2024-01-01 07:58] LABS: Ammonia 68 umol/L (16-60)
[2024-01-01 08:00] LABS: Troponin(5th) Baseline 25 ng/L (0-15)
[2024-01-01 08:02] LABS: Phenytoin Dilantin 10.3 ug/mL (10-20)
[2024-01-01 08:04] LABS: Lactic Sepsis W/Reflex 7.3 mmol/L (0.5-2.2)
[2024-01-01 08:11] LABS: Albumin Level 4.1 g/dL (3.5-5.2); Alkaline Phosphatase 124 U/L (40-130); Blood Urea Nitrogen 10 mg/dL (6-20); Carbon Dioxide 17 mmol/L (22-29); Chloride 96 mmol/L (98-107); Creatinine Clr Calc Pharmacy 162.7254; Globulin 3.2 g/dL (1.3-4.6); Glomerular Filtration Rate 101.5 mL/min (90-130); Glucose 135 mg/dL (65-115); Lipase 19 U/L (13-60); NT Pro B Type Natriuretic Pept 167 pg/mL (0-125); Osmolality Calculated 277 mOsm/kg (285-295); Sodium 133 mmol/L (136-145); Total Bilirubin 0.6 mg/dL (0.15-1.2); Total Protein 7.3 g/dL (6.6-8.7)
[2024-01-01 08:17] LABS: Alcohol Level < 10 mg/dL (0-10); Salicylate < 0.3 mg/dL (3-10)
[2024-01-01 08:18] LABS: Alanine Aminotransferase 20 U/L (0-41); Anion Gap 23.7 (5-19); Aspartate Amino Transferase 30 U/L (0-40); Creatine Phosphokinase 65 U/L (39-308); Potassium 3.7 mmol/L (3.5-5.1)
--- NOTE | 2024-01-01 08:35 | PC.NURSE ---
PER VERBAL ORDER FROM DR. PASTOR, GIVE 5MG BOLUS OF VERSED. INCREASED MAINTENANCE DRIP OF VERSED TO 5MG AND INCREASED FENTANYL MAINTENANCE DOSE TO 100 MCG DUE TO INEFFICIENT PATIENT SEDATION.
[2024-01-01] MEDS: acetaminophen 1,000 MG/100 ML PIGGYBACK 400 MG IV (08:46)
[2024-01-01] MEDS: sodium chloride 0.9% 1,000 ML 500 ML IV ×2 (08:48→15:30)
[2024-01-01] MEDS: piperacillin-tazobactam 3.375 GM in sodium chloride 0.9% (plus) 50 ML IV ×2 (08:49→17:31)
[2024-01-01 09:22] LABS: Reflex Lactate Order REFLEX LACTIC ORDERD
[2024-01-01 09:23] LABS: Amphetamines Screen Urine Negative (Negative); Barbiturates Screen Urine Positive (Negative); Benzodiazepines Screen Urine Positive (Negative); Cocaine Screen Urine Negative (Negative); Opiate Screen Urine Negative (Negative); PCP Screen Urine Negative (Negative); THC Screen Urine Negative (Negative)
[2024-01-01 09:34] LABS: Blood Urine 2+ (Negative); Glucose Urine UA 1+ (Normal); Ketones Urine 1+ (Negative); Nitrate Urine Positive (Negative); Protein Urine Neg (Negative); Urine Appearance Cloudy (CLEAR); Urine Color Yellow (Yellow); pH Urine 5 (5-7)
[2024-01-01 09:35] LABS: Add Urine Microscopic? YES; Bilirubin Urine Neg (Negative); Leukocyte Esterase Urine 2+ (Negative); Urobilinogen Urine Norm (Negative)
[2024-01-01 09:36] LABS: Add Urine Culture? Yes; Bacteria Urine 2+ /hpf; Coarse Granular Casts Urine 15-25 /lpf; Squamous Epithelial Cell Urine 0-4 /hpf (0-5); WBC Urine >100 /hpf (0-5)
[2024-01-01] MEDS: vancomycin 1,000 MG in sodium chloride 0.9% 250 ML 250 MG IV (09:45)
--- NOTE | 2024-01-01 09:49 | PC.NURSE ---
patient presented from EMS with right distal femur IO that was placed in soft tissue. no meds were given through IO by [facility]. Fluids were given through IO by EMS prior to arrival.
--- NOTE | 2024-01-01 10:32 | ECG_ITS ---
[facility] Test Date: 2024-01-01 Pat Name: Jaziel Willis Department: Room: ICU07 Gender: Male Workday Manager: : 1970 Requested By: Lemuel Klein Order Number: [id number] Tucker MD: Mandeep Chen M.D. Measurements Intervals [place] Rate: 77 P: 65 MA: 165 QRS: 86 QRSD: 150 T: 60 QT: 408 QTc: 462 Interpretive Statements SINUS RHYTHM RIGHT BUNDLE BRANCH BLOCK [120+ ms QRS DURATION, UPRIGHT V1, 40+ ms S IN I/aVL/V4/V5/V6] Compared to ECG 01/01/2024 07:35:00 No significant changes Electronically Signed On 01-02-2024 12:45:22 CDT by Mandeep Chen M.D. [id number]
--- NOTE | 2024-01-01 10:45 | CTR_ITS ---
PROCEDURE INFORMATION: Exam: CTA Chest With Contrast Exam date and time: 01/01/2024 12:23 PM Age: 53 years old Clinical indication: Other: Resp failure TECHNIQUE: Imaging protocol: Computed tomographic angiography of the chest with contrast. Exam focused on the arteries. 3D rendering (Not supervised by radiologist): MIP and/or 3D reconstructed images were created by the technologist. Radiation optimization: All CT scans at this facility use at least one of these dose optimization techniques: automated exposure control; mA and/or kV adjustment per patient size (includes targeted exams where dose is matched to clinical indication); or iterative reconstruction. Contrast material: OMNI 350; Contrast volume: 85 ml; Contrast route: INTRAVENOUS (IV); COMPARISON: CR (CHEST, ) 01/01/2024 7:26 AM RADIATION DOSE METRICS: Total DLP (mGy-cm): 510.4 FINDINGS: Tubes, catheters and devices: NG tube is seen coursing through the midline, with its tip within the stomach. ET tube place with its tip proximally 3 centimeters jim. Central airways are patent, there is distal bronchial wall occlusion predominantly at the left lower lungs. Pulmonary arteries: Adequate visualization of the pulmonary arteries to the subsegmental level. No pulmonary embolism. Aorta: Ascending aorta is normal in caliber. Trachea: Heterogeneous left thyroid mass measuring 3.8 x 2.6 centimeters with mass effect onto the trachea. Lungs: Multifocal ground-glass to patchy consolidations observed in the lower lobes and right middle lobes consistent with multifocal pneumonia. Pleural spaces: Unremarkable. No pneumothorax. No pleural effusion. Heart: Unremarkable. No cardiomegaly. No pericardial effusion. Esophagus: Esophagus is patulous, and fluid-filled. Lymph nodes: Unremarkable. No enlarged lymph nodes. Bones/joints: Unremarkable. No acute fracture. Soft tissues: Unremarkable. CT/CT angio chest PE protcl [id number] IMPRESSION: 1. No pulmonary embolism. 2. Multifocal opacities predominantly at the lower lung bases right middle lobe consistent with multifocal pneumonia. 3. Patulous and fluid-filled esophagus. 4. NG tube and ET tube in place. 5. Heterogeneous left thyroid mass measuring 3.8 x 2.6 centimeters with mass effect onto the trachea. COMMENTS: Consistent with the [employer]'s Incidental Findings Committee white paper (J Am Lily Radiol 2015): In patients aged 35 years and older with an incidental thyroid nodule equal to or greater than 1.[address], MRI or extrathyroidal US, further evaluation with dedicated thyroid US is recommended for patients with normal life expectancy and without comorbidities. For smaller nodules without suspicious features, no further evaluation or follow up is recommended.
--- NOTE | 2024-01-01 11:14 | PC.NURSE ---
PER VERBAL ORDER FROM DR. PASTOR, BOLUS 5MG VERSED AND INCREASE VERSED MAINTENANCE DOSE TO 6MG AT 1056
--- NOTE | 2024-01-01 11:15 | PC.NURSE ---
PER TURNAROUND ENGINEER, DIRECTIONS FOR DECON PATIENT DUE TO BED BUGS IS FOLLOWS: SOILED CLOTHING REMOVED WIPE DOWN PATIENT WIPE DOWN BED DOUBLE BAG LINENS PATIENT ALSO PUT IN CLEAN GOWN PATIENT PUT ON AIR MAT
[2024-01-01 11:54] LABS: Adenovirus Not Detected (NOT DETECT); Chlamydia Pneumoniae Not Detected (NOT DETECT); Coronavirus 229E,HKU1,NL63,OC4 Not Detected (NOT DETECT); Human Metapneumovirus Not Detected (NOT DETECT); Human Rhinovirus/Enterovirus Not Detected (NOT DETECT); Influenza A Not Detected (NOT DETECT); Influenza A H1 Not Detected (NOT DETECT); Influenza A H1-2009 Not Detected (NOT DETECT); Influenza A H3 Not Detected (NOT DETECT); Influenza B Not Detected (NOT DETECT); Mycoplasma Pneumoniae Not Detected (NOT DETECT); Parainfluenza Virus Type 1 Not Detected (NOT DETECT); Parainfluenza Virus Type 2 Not Detected (NOT DETECT); Parainfluenza Virus Type 3 Not Detected (NOT DETECT); Parainfluenza Virus Type 4 Not Detected (NOT DETECT); Respiratory Syncytial Virus A Not Detected (NOT DETECT); Respiratory Syncytial Virus B Not Detected (NOT DETECT); SARS-COV-2 Not Detected (NOT DETECT)
[2024-01-01] MEDS: propofol 1,000 MG/100 ML INJ 2 MG IV (12:05)
--- NOTE | 2024-01-01 12:06 | PC.NURSE ---
PER VERBAL ORDERS FROM DR. PASTOR, PROPOFOL STARTED AT 20MG/HR.
[2024-01-01] MEDS: iohexol 350 mg/mL 500 mL Btl (per mL) IV (12:32)
--- NOTE | 2024-01-01 12:35 | PC.NURSE ---
Pt arrives to ICu from ED. Pt intubated and sedated. Fentanyl , Versed and propofol for sedation. IVF inufsing. Pt opened his eyes briefly, that is the extent of his responses at tis time. Pt wiped down and bed bug issue taken care of per Ed nurse.
--- NOTE | 2024-01-01 12:38 | P.CONIM_ITS ---
Providers/Reason For Consult 2 Consulting Physician/Specialty*: Ar Atkinson MD neurology and epilepsy Reason for Consult*: Intractable epilepsy and reports of status epilepticus requiring intubation and sedation Attending Physician: Mg Wilson MD Primary Care Provider: NIRANJAN Drummond History of Present Illness History of Present Illness Jaziel Willis is a 53 year old male with a history of intractable epilepsy followed by Dr. Forrester. Patient was reported to experience recurrent seizures/status epilepticus presented to the emergency room via EMS. The patient was given 10 mg Ativan. On arrival patient reported to be hypoxic and in status epilepticus. Patient unable to give any further history but there was report that the patient was brought in from home. Patient was emergently resuscitated after arrival as he was in severe respiratory distress and was reported to be unable to control secretions and required suctioning due to the amount of vomitus in the posterior pharynx. Patient placed on IV sedation. Patient was also reported to have elevated white count 32,000 with neutrophil shift and monocyte shift. Platelet count decreased at 158,000. Sodium decreased at 133. Bicarb decreased at 17. Elevated lactic acid 7.3. Elevated ammonia 68. Elevated troponin level and elevated natruretic protein. Urinalysis was positive for greater than 100 white cells per high-powered field with 2+ bacteria. Positive leukoesterase. 2+ blood 1+ nitrate and 1+ glucose. Drug screen positive for benzodiazepines and barbiturates. Dilantin level 10.3. Lacosamide level and Keppra levels pending. Noncontrast head CT revealed no acute findings. Drug allergies: None Current home medications: Lacosamide 250 mg p.o. twice daily Keppra 2000 mg p.o. twice daily Ativan 2 mg p.o. daily, as needed seizure Dilantin 50 mg chewable tablets 250 mg p.o. every 8 hours Trazodone 100 mg p.o. 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 difficile enterocolitis Intellectual disability Peripheral vascular disease Hypertriglyceridemia Low serum iron Low serum calcium Venous insufficiency of the lower extremity Hypertension Past surgical history: History of laparoscopic cholecystectomy History of total colectomy August 2022S/P vein stripping Family history: Family History Father Cancer Lung cancer Mother CAD (coronary artery disease) Other DiabetesHeart diseaseHypertension Denies family history of Stroke Habits: None Medications/Allergies Home Medications Medication Instructions Recorded Confirmed Last Taken Type Compression hose #1 ea 09/21/20 01/01/24 Unknown Rx Compression hose 07/13/21 01/01/24 Unknown History Diabetic Shoes with 3 pairs of #1 ea 03/23/22 01/01/24 Unknown Rx inserts trazodone 100 mg tablet 100 mg PO BEDTIME #30 tabs 11/10/23 01/01/24 Unknown Rx lacosamide 50 mg tablet (Vimpat) 250 mg (5 x 50 mg) PO BID 60 days 11/23/23 01/01/24 Unknown Rx #600 tabs phenytoin 50 mg chewable tablet 250 mg (5 x 50 mg) PO Q8H #90 tabs 11/23/23 01/01/24 Unknown Rx levetiracetam 1,000 mg tablet 2,000 mg PO BID 01/01/24 01/01/24 Unknown History lorazepam 2 mg/mL oral concentrate 2 mg PO DAILY PRN seizures 01/01/24 01/01/24 Unknown History (Lorazepam Intensol) Allergies Allergy/AdvReac Type Severity Reaction Status Date / Time No Known Allergies Allergy Verified 11/23/23 08:56 Current Medications Generic Name Dose Route Start Last Admin Trade Name Freq PRN Reason Stop Dose Admin Fentanyl 1,000 mcg in 100 mls @ 0 mls/hr 01/01/24 07:30 01/01/24 08:35 Sublimaze IV 100 mcg/hr .Q0M OTIS 10 mls/hr Titration Protocol Per Protocol Midazolam HCl 100 mg in 100 mls @ 0 mls/hr 01/01/24 07:30 01/01/24 11:14 Versed IV 6 mg/hr .Q0M OTIS 6 mls/hr Titration Protocol Per Protocol Sodium Chloride 1,000 mls @ 500 mls/hr 01/01/24 08:15 01/01/24 08:48 Sodium Chloride 0.9% IV 01/01/24 13:50 500 mls/hr .Q2H OTIS Administration Propofol 1,000 mg in 100 mls @ 0 mls/hr 01/01/24 12:00 01/01/24 12:05 Diprivan IV 2.45 mcg/kg/min .Q0M OTIS 2 mls/hr Administration Protocol Per Protocol PFSH Acute 2 PFSH: Medical History Status epilepticus Generalized seizure Developmental disorder Frontal lobe epilepsy Cellulitis of oral soft tissues Endotracheally intubated Status epilepticus Essential hypertension Generalized epilepsy Morbid obesity Hypertension Intellectual disability Peripheral vascular disease Venous stasis dermatitis Leukocytosis Seizure Surgical History History of laparoscopic cholecystectomy History of total colectomy August 2022 S/P vein stripping Family History Father Cancer Lung cancer Mother CAD (coronary artery disease) Other Diabetes Heart disease Hypertension Denies family history of Stroke Social History Smoking and tobacco/nicotine status: never used tobacco/nicotine Second hand smoke exposure: No Alcohol intake: never Substance/Drug Use: never Adopted: No Caregiver/support person: Yes Lives independently: No Household members: family Housing: House Marital status: Single Number of children: 0 service: No Current occupational status: disabled Do you think of yourself as: Straight/Heterosexual Current gender identity: Male Vitals/I&O/Wt Last Vital Signs Temp 102 F H 01/01/24 07:08 Pulse 70 01/01/24 10:15 Resp 16 01/01/24 10:15 BP 114/68 01/01/24 10:15 Pulse Ox 96 01/01/24 09:55 O2 Del Method Mechanical Ventilation 01/01/24 07:59 FiO2 100 01/01/24 07:36 12/31/23 01/01/24 01/01/24 22:59 06:59 14:59 Intake Total 523.05 / 523.05 Balance 523.05 / 523.05 Weight last 48 hrs Weight 300 lb Physical Exam 2 Narrative: Physical Exam Const: NUTRITIONAL APPEARANCE: obese OTHER: Postictal nonresponsive HENMT: COMMON NORMALS: atraumatic HEAD & SCALP: atraumatic OTHER: Enlarged frontal bone Resp: EFFORT & INSPECTION: Yes abnormal respiratory pattern and Yes respiratory distress OTHER: Acute respiratory distress with gurgling breath sounds oxygen sats in the 80s required emergent intubation Cardio: COMMON NORMALS: regular rhythm and No murmurs present (Cardio) RATE: tachycardic RHYTHM: regular rhythmGI: COMMON NORMALS: Soft to palpation and No hepatosplenomegaly present AUSCULTATION: Yes normoactive bowel sounds PALPATION: Yes Soft to palpation, No Guarding due to palpation present (GI) and Yes No hepatosplenomegaly present OTHER: Ileostomy in the right lower quadrant stool in the bag no hematochezia Extremity: COMMON NORMALS: normal to inspection, capillary refill normal, no clubbing, cyanosis or edema Urinary Catheter Management: Saenz: Cath Placed During This Visit: yes Urinary Catheter Date of Insertion: 01/01/24 Urinary Catheter Time of Insertion: 08:07 Data 01/01/24 07:30 01/01/24 07:30 Micro: Microbiology 01/01/24 07:30 Gram Stain - Final Sputum - Endotracheal Tube Aspirate 01/01/24 07:50 Blood Culture - Preliminary Blood SPECIMEN COLLECTED 01/01/24 07:30 Blood Culture - Preliminary Blood SPECIMEN COLLECTED A&P Assessment and plan (1) Status epilepticus: Impression: 1. Status epilepticus requiring intubation and sedation 2. 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 Elevated white count suggestive of sepsis Plan: 1. Hold oral chewable Dilantin 2. IV fosphenytoin 100 mg IV 3 times a day 3. Trough Dilantin level on 01/02/2024 4. Change oral lacosamide to IV at 100 mg 3 times daily 5. Change oral Keppra to IV formulation 1000 mg 3 times daily 6. Monitor neurological condition 7. Seizure precautions/fall precautions 8. Agree with workup for sepsis including lumbar puncture 9. Agree with broad-spectrum IV antibiotics 10. Will recommend surface EEG recording of patient's mental status does not improve 11. Patient on IV Versed and fentanyl and propofol discontinue (2) Intractable epilepsy: Qualifiers: Epilepsy type: partial idiopathic, localized onset Status epilepticus: with status epilepticus Qualified Code(s): G40.011 - Localization-related (focal) (partial) idiopathic epilepsy and epileptic syndromes with seizures of localized onset, intractable, with status epilepticus Consult Attestations 2 Medical Necessity Statement: Patient evaluated by neurology for history of intractable epilepsy and admitted with status epilepticus requiring intubation Coding Level of Care Code 88614 Diagnoses Status epilepticus G40.901 Partial idiopathic epilepsy with seizures of localized onset, intractable, with status epilepticus G40.011 Epilepsy type: partial idiopathic, localized onset Status epilepticus: with status epilepticus
--- NOTE | 2024-01-01 13:00 | PC.NURSE ---
SCDs not applied: Pt has lower legs have very hard areas along lower calf area. Dr Perez was notified, while at bedside. okay'd no SCDs.
--- NOTE | 2024-01-01 14:00 | USR_ITS ---
PROCEDURE INFORMATION: Exam: US Soft Tissue Head and Neck, Thyroid Exam date and time: 01/01/2024 5:56 PM Age: 53 years old Clinical indication: Abnormal findings; Abnormal radiologic study of neck; Additional info: Left thyroid mass, check for vascularity TECHNIQUE: Imaging protocol: Real-time ultrasound scan of the neck with image documentation. Exam focused on the thyroid. COMPARISON: CT head wo con* [id number] 01/01/2024 12:20 PM FINDINGS: Right thyroid lobe: Right thyroid lobe measures 4.1 x 1.3 x 1.5 centimeters. Left thyroid lobe: Left thyroid lobe measures 5.1 x 2.5 x 2.7 centimeters. Left mid thyroid nodule measuring 3.1 x 1.7 x 2.5 centimeters, that is solid or almost completely solid, hyperechoic,wider than tall, smooth margins, and without any echogenic fossae or large comet tail artifacts. TI-RADS 3. Isthmus: The isthmus measures 0.4 centimeters. US/US thyroid [id number] IMPRESSION: Left mid thyroid nodule TI-RADS 3 measuring 3.1 centimeters. Mildly Suspicious: Consider FNA for further management.
--- NOTE | 2024-01-01 14:01 | PM.HP ---
Providers/Chief Complaint Admitting Physician: Mg Wilson MD Primary Care Provider: NIRANJAN Drummond Chief Complaint: SEIZURES History of Present Illness Jaziel Willis is a 53 year old male with past medical history of G TCS, status epilepticus, developmental delay who was brought into the ER today with concerns for altered mental status. As per the report from ER physician patient was found to have multiple episodes of seizures by EMS at home so was given 10 mg of IV Ativan and was brought to the ER. In the ER he was found to be in respiratory distress with excessive secretion hence was intubated to protect his airway. He was found to have a fever of 102 Fahrenheit and was suctioned with food particles during intubation. Review of Systems General: Reports: ROS unobtainable due to endotracheal tube Medications/Allergies Home Medications Medication Instructions Recorded Confirmed Last Taken Type Compression hose #1 ea 09/21/20 01/01/24 Unknown Rx Compression hose 07/13/21 01/01/24 Unknown History Diabetic Shoes with 3 pairs of #1 ea 03/23/22 01/01/24 Unknown Rx inserts trazodone 100 mg tablet 100 mg PO BEDTIME #30 tabs 11/10/23 01/01/24 Unknown Rx lacosamide 50 mg tablet (Vimpat) 250 mg (5 x 50 mg) PO BID 60 days 11/23/23 01/01/24 Unknown Rx #600 tabs phenytoin 50 mg chewable tablet 250 mg (5 x 50 mg) PO Q8H #90 tabs 11/23/23 01/01/24 Unknown Rx levetiracetam 1,000 mg tablet 2,000 mg PO BID 01/01/24 01/01/24 Unknown History lorazepam 2 mg/mL oral concentrate 2 mg PO DAILY PRN seizures 01/01/24 01/01/24 Unknown History (Lorazepam Intensol) Allergies Allergy/AdvReac Type Severity Reaction Status Date / Time No Known Allergies Allergy Verified 11/23/23 08:56 PFSH Acute PFSH: Medical History (Updated 01/01/24 @ 15:28 by Mg Wilson MD) C. difficile colitis Symptomatic cholelithiasis Status epilepticus Generalized seizure Developmental disorder Frontal lobe epilepsy Cellulitis of oral soft tissues Endotracheally intubated Status epilepticus Essential hypertension Generalized epilepsy Morbid obesity Hypertension Intellectual disability Peripheral vascular disease Venous stasis dermatitis Leukocytosis Seizure Surgical History History of laparoscopic cholecystectomy History of total colectomy August 2022 S/P vein stripping Family History Father Cancer Lung cancer Mother CAD (coronary artery disease) Other Diabetes Heart disease Hypertension Denies family history of Stroke Social History Smoking and tobacco/nicotine status: never used tobacco/nicotine Second hand smoke exposure: No Alcohol intake: never Substance/Drug Use: never Adopted: No Caregiver/support person: Yes Lives independently: No Household members: family Housing: House Marital status: Single Number of children: 0 service: No Current occupational status: disabled Do you think of yourself as: Straight/Heterosexual Current gender identity: Male Vitals/I&O/Wt Last Vital Signs Temp 102 F H 01/01/24 12:54 Pulse 70 01/01/24 12:54 Resp 16 01/01/24 12:54 BP 114/68 01/01/24 12:54 Pulse Ox 96 01/01/24 12:54 O2 Del Method Mechanical Ventilation 01/01/24 07:59 FiO2 60 01/01/24 12:44 12/31/23 01/01/24 01/01/24 22:59 06:59 14:59 Intake Total 523.05 / 523.05 Balance 523.05 / 523.05 Weight last 48 hrs Weight 136.078 kg Physical Exam Narrative: General: Intubated, sedated, poorly kept HEENT: PERRLA, pupils bilaterally equal and reactive Chest: Normal vesicular breath sounds, coarse crackles in bilateral lower zone more so than right, occasional rhonchi, equal good air entry bilaterally CVS: S1-S2 regular, no murmurs, no tachycardia, no gallops, no rubs Abdomen: Soft, nontender, no organomegaly, bowel sounds present Neuro: No focal deficits, no facial deformity, intubated, sedated Urinary Catheter Management: Saenz: Cath Placed During This Visit: yes Urinary Catheter Date of Insertion: 01/01/24 Urinary Catheter Time of Insertion: 08:07 Data 01/01/24 07:30 01/01/24 07:30 Micro: Microbiology 01/01/24 07:30 Gram Stain - Final Sputum - Endotracheal Tube Aspirate 01/01/24 07:50 Blood Culture - Preliminary Blood SPECIMEN COLLECTED 01/01/24 07:30 Blood Culture - Preliminary Blood SPECIMEN COLLECTED A&P Assessment and plan (1) Sepsis: SIRS: Tachycardic, Febrile, Leukocytosis Source: Pneumonia versus UTI, meningitis less likely End organ damage: Acute metabolic encephalopathy, respiratory failure Lactic acid elevated. Fluid bolus 30 cc/kg per body weight. After that maintenance with normal saline at 100 cc/h. Monitor blood pressures. Keep mean artery pressure 65 mmHg. Blood culture, urine culture, MRSA swab, procalcitonin, urine Legionella, bacterial antigen. Check respiratory viral panel, MRSA swab. Does have history of C. difficile colitis in the past. Check stool studies. Reviewed culture history. Usually sputum culture with Klebsiella, urine culture with E. coli both pansensitive, C. difficile positive in August 2022, MRSA negative. There is concern for possible meningitis though lumbar puncture could not be done in the ER due to body habitus. Depending on the clinical picture we will plan for lumbar puncture once IR team is available. Empirically start coverage with IV vancomycin and Zosyn. Empirically start on oral vancomycin 125 mg 4 times daily. De-escalate antibiotics as per culture results. (2) Acute hypoxic respiratory failure: Appreciate ABG. Change ventilator settings with FiO2 down to 40%. Repeat ABG in few hours. Keep saturation over 90%. Wean ventilator accordingly. Sedation with IV Versed and fentanyl drip. (3) Status epilepticus: History of intractable seizures in the past secondary to intellectual now. Check Keppra, lacosamide, phenytoin level. Neurology consulted from the ER. Medication changed to IV from oral. Continue with fosphenytoin 100 cc every 8 hourly, lacosamide IV 100 every 8 hourly, Keppra 1000 every 8 hourly. Currently patient sedated with Versed. Plan for sedation vacation in the next 24 hours (4) Aspiration pneumonia: Most likely in setting of status epilepticus. Sent sputum culture. Antibiotics as above (5) Hyponatremia: Can be precipitation factor for seizures though less likely as sodium only 133. Most likely in setting of dehydration. Normal saline 100 cc/h as above. Repeat BMP. (6) Cystitis: (7) Elevated lactic acid level: (8) Metabolic acidosis: (9) Intellectual disability: (10) C. difficile colitis: Plan Analgesia: Currently on fentanyl drip Glycemic control: Not needed. Check A1c. Nutrition: Currently NPO. If remains intubated for more than 48 hours we will plan on tube feeding. CODE STATUS: Full code PUD prophylaxis: Protonix DVT prophylaxis: Heparin 5000 every 12 hourly Discharge planning: Back home with caregiver and possibly home health once medically stable Admit to ICU This documentation was created by [employer] wash oil pump operator software. Every effort was made to ensure accuracy of wash oil pump operator. Any obvious errors or omissions should be clarified with the author of the document. Attestations Medical Necessity Statement*: Admission for more than 2 midnights for management of status epilepticus leading to respiratory failure, sepsis in setting of UTI and aspiration pneumonitis as patient is currently ventilated Critical Care Time: The high probability of a clinically significant, sudden or life threatening deterioration of the patient's [pulmonary, GI, neurological] system(s) required my full and direct attention, intervention and personal management. The critical care time is as shown. This time is in addition to time spent performing any reported procedures but includes the following: [x] Data and vital sign review and interpretation [x] Patient assessment, examination and intervention [x] Documentation [x] Medication orders and management Critical Care Time (min): 80 Coding Level of Care Code Critical Care >/= 30 minutes Critical care time (in minutes): 80 The high probability of a clinically significant, sudden or life threatening deterioration, as referenced in this documentation, required my full and direct attention, intervention and personal management. The critical care time shown is in addition to time spent performing any reported separately billable procedures and includes the following: [x] Data and vital sign review and interpretation [x] Patient assessment, examination and intervention [x] Medication orders and management [x] Patient/Family updates as able [x] Care Coordination and Documentation. Other Coding Information This patient has a high probability of clinically significant, sudden or life threatening deterioration of the patient's (neurological/pulmonary/cardiac/renal/ID/endocrine) systems required my full, direct attention, the highest level of physician preparedness for urgent intervention and personal management. I managed/supervised life or organ supporting interventions that required frequent physician assessment. I devoted my full attention in the ICU to the direct care of this patient for the period of time indicated above. Time I spent with family or surrogate(s) is included only if the patient was incapable of providing necessary information or participating in decision making. This time includes the following services provided: Telemetry review Mechanical Ventilation Hemodynamic interpretation, assessment and management Review and interpretation of CXR Review and interpretation of lab values Review and interpretation of microbiologic data and culture results Review of medications and administration Review and interpretation of Nutrition requirements and management Discussion of management with other consultants and services Clinical update to family members Diagnoses Sepsis A41.9 Acute hypoxic respiratory failure J96.01 Status epilepticus G40.901 Aspiration pneumonia J69.0 Hyponatremia E87.1 Cystitis N30.90 Elevated lactic acid level R79.89 Metabolic acidosis E87.20 Intellectual disability F79 C. difficile colitis A04.72
--- NOTE | 2024-01-01 14:02 | XRR_ITS ---
PROCEDURE INFORMATION: Exam: XR Abdomen Exam date and time: 01/02/2024 7:39 AM Age: 53 years old Clinical indication: Abdominal tenderness; Additional info: H/o megacolon TECHNIQUE: Imaging protocol: Radiologic exam of the abdomen. Views: Frontal supine view of the abdomen. 1 View. COMPARISON: CT kidney stone [id number] 04/18/2023 9:29 AM FINDINGS: Tubes, catheters and devices: Tip of the feeding tube is in the stomach. Gastrointestinal tract: Normal. No bowel dilation. Organs: Post cholecystectomy. Vasculature: Pelvic phleboliths. Bones/joints: Left hip surgical clips. Mild degenerative disease of both hip joints. XR/XR abdomen 1V* [id number] IMPRESSION: Nonobstructive bowel gas pattern.
[2024-01-01 14:54] LABS: Procalcitonin 0.11 ng/mL (0-0.5); Vitamin B12 346 pg/mL (232-1245)
[2024-01-01 15:05] LABS: Iron 22 ug/dL (59-158); Percent Saturation 12.7 % (20-50); Total Iron Binding Capacity 173 mcg/dl; Unsaturated Iron Binding 151 ug/dL (112-347)
[2024-01-01] MEDS: ipratropium-albuterol 3 mL Neb INHALATION ×2 (15:08→19:51)
[2024-01-01] MEDS: pantoprazole 40 mg SDV IVP (15:13)
[2024-01-01] MEDS: heparin 5,000 unit/mL INJ 1 mL 5000 UNIT SUBCUT (15:14)
[2024-01-01] MEDS: sodium chloride 0.9% 1,000 ML 100 ML IV (15:18)
[2024-01-01] MEDS: lacosamide 100 MG in sodium chloride 0.9% 50 ML 120 MG IV ×2 (15:19→21:18)
[2024-01-01 15:30] LABS: ABG PCO2 38.2 mmHg (35-45); ABG PH Result 7.38 (7.35-7.45); Alveolar-Arterial Oxygen Gradi 11.9 mmHg (5-10); Arterial Blood Gas Hematocrit 44.5 % (42-52); Base Excess ABG -2.1 mmol/L (-2.0-2.0); Blood Gas Allen Test Pos; Blood Gas Operator Identificat GD; Blood Gas Sample Site Radial, left; Blood Gas Sample Type Arterial; Blood Gas Tidal Volume 0.55; Carboxyhemoglobin 1.8 %THgb (0.4-20.1); HCO3 ABG 22.7 mmol/L (22-26); HGB O2 Sat 94.7 % (95-100); Ionized Calcium Level - ABG 1.2 mmol/L (1.1-1.4); Methemoglobin 0.6 % (0.4-1.5); Oxygen Device VENT; Oxygen Saturation ABG 97.1; PO2 ABG 74.1 mmHg (80.0-100.0); PO2 FiO2 Ratio Arterial Blood 0; Potassium Level - ABG 3.5 mmol/L (3.5-5.0); Total Hemoglobin 14.5 g/dL (14-18)
--- NOTE | 2024-01-01 15:31 | PC.NURSE ---
Fluid Bolus of 2800ml completed. Started in ED. Unable to correct volume, in MAR, to reflect 2800ml not 3000ml
--- NOTE | 2024-01-01 15:49 | PC.NURSE ---
SDOH: Most questions , his mother Tiffanie answered. He is unable to answer if he feels threatened at home question.
[2024-01-01 15:59] LABS: Lactic Acid level (Lactate) 2.3 mmol/L (0.5-2.2)
[2024-01-01] MEDS: vancomycin 2,000 MG/400 ML PIGGYBACK 200 MG IV (17:31)
[2024-01-01] MEDS: vancomycin 100 mg/1 mL Oral Syringe 125 MG PO (17:32)
--- NOTE | 2024-01-01 18:13 | PC.NURSE ---
ORAL care: ALEX kits not available at this time
--- NOTE | 2024-01-01 18:49 | PC.NURSE ---
Shift summary: Pt remains intubated and sedated. FIO2 now 30%. No pain noted. Propofol discontinued. Versed at 6mg/hr and Fentanyl at 100mcg/hr, no changes in the rate since his arrival. He rarely does open his eyes briefly but that is his only response . He was started on IV seizure medications. He was also started on Vancomycin oral and IVPB. Sinus rhythm noted on monitor. Colostomy patent and draining loose brown stool. 400ml output. He has had 800 m l of orange urine output that was slightly cloudy. Family was at bedside briefly this afternoon. He has darken thick flaky skin , and hardened areas on his lower legs bilat.
[2024-01-01] MEDS: midazolam hcl 100 MG/100 ML BAG 6 MG IV (19:15)
[2024-01-01] MEDS: budesonide 0.5 mg/2 mL Neb INHALATION (19:51)
[2024-01-01] MEDS: vancomycin 125 mg Capsule PO (21:19)
[2024-01-02] VITALS (94 sets, daily range): BP systolic 100–152; BP diastolic 56–96; PULSE 67–92; RESP 16–18; TEMP 37–37.8; O2SAT 92–99; BMI 35.4
[2024-01-02] MEDS: piperacillin-tazobactam 3.375 GM in sodium chloride 0.9% (plus) 50 ML IV ×3 (00:24→17:50)
[2024-01-02] MEDS: fentaNYL 2,500 MCG/250 ML BAG 10 MCG IV (00:25)
[2024-01-02] MEDS: ipratropium-albuterol 3 mL Neb INHALATION ×4 (01:15→20:10)
[2024-01-02] MEDS: heparin 5,000 unit/mL INJ 1 mL 5000 UNIT SUBCUT ×2 (01:21→13:13)
--- NOTE | 2024-01-02 04:00 | XRR_ITS ---
PROCEDURE INFORMATION: Exam: XR Chest Exam date and time: 01/02/2024 7:31 AM Age: 53 years old Clinical indication: Dyspnea; Additional info: Intubated TECHNIQUE: Imaging protocol: Radiologic exam of the chest. Views: 1 view. COMPARISON: CT angio chest PE protcl [id number] 01/01/2024 12:23 PM FINDINGS: Tubes, catheters and devices: Tip of the feeding and ET tubes are in satisfactory positions. Lungs: Bilateral lower lung zone infiltrates. Pleural spaces: Unremarkable. No pleural effusion. No pneumothorax. Heart/Mediastinum: Small hiatal hernia. Vasculature: Unfolding of the thoracic aorta. Bones/joints: Mild degenerative disease of the right acromioclavicular joint. XR/XR chest 1V portable [id number] IMPRESSION: 1. ET tube is in satisfactory position. 2. Bilateral lower lung zone infiltrates.
[2024-01-02 04:53] LABS: ABG PCO2 37.8 mmHg (35-45); ABG PH Result 7.39 (7.35-7.45); Arterial Blood Gas Hematocrit 42.7 % (42-52); Blood Gas Allen Test Pos; Blood Gas Sample Site Radial, left; Blood Gas Sample Type Arterial; Blood Gas Tidal Volume 0.55; Carboxyhemoglobin 2.3 %THgb (0.4-20.1); HCO3 ABG 22.7 mmol/L (22-26); Ionized Calcium Level - ABG 1.2 mmol/L (1.1-1.4); Methemoglobin 0.6 % (0.4-1.5); Oxygen Device VENT; Oxygen Saturation ABG 95.8; PO2 ABG 66.4 mmHg (80.0-100.0); PO2 FiO2 Ratio Arterial Blood 0; Potassium Level - ABG 3.4 mmol/L (3.5-5.0); Total Hemoglobin 13.9 g/dL (14-18)
[2024-01-02] MEDS: lacosamide 100 MG in sodium chloride 0.9% 50 ML 120 MG IV ×3 (05:06→21:32)
[2024-01-02] MEDS: vancomycin 2,000 MG/400 ML PIGGYBACK 200 MG IV ×2 (05:07→17:51)
[2024-01-02 08:02] LABS: Basophils # 0.1 10^3/uL (0.0-0.1); Basophils % 0.2 %; Eosinophils % 0.1 %; Hematocrit 39.2 % (37-53); Lymphocytes # 0.9 10^3/uL (0.8-4.8); Lymphocytes % 3.2 %; Mean Corpuscular HGB Conc 34.2 g/dL (30-55); Mean Corpuscular Hemoglobin 33.5 pg (27-33); Mean Platelet Volume 10.1 fL (7.4-10.4); Monocytes # 2.2 10^3/uL (0.2-0.9); Monocytes % 8.2 %; Neutrophils # 23.24 10^3/uL (1.8-7.7); Neutrophils % 87.2 %; Nucleated Red Blood Cells % 0 %; Platelet Count 129 10^3/cmm (157-399); Red Cell Distribution Width 14.1 % (12.1-15.1); White Blood Count 26.62 10^3/uL (3.29-11.43)
[2024-01-02] MEDS: budesonide 0.5 mg/2 mL Neb INHALATION ×2 (08:16→20:10)
[2024-01-02 08:24] LABS: Phenytoin Dilantin 6.8 ug/mL (10-20)
[2024-01-02 08:27] LABS: Alanine Aminotransferase 13 U/L (0-41); Albumin Level 3.1 g/dL (3.5-5.2); Alkaline Phosphatase 109 U/L (40-130); Anion Gap 17.3 (5-19); Aspartate Amino Transferase 17 U/L (0-40); Blood Urea Nitrogen 12 mg/dL (6-20); Calcium 8.2 mg/dL (8.5-10.5); Carbon Dioxide 19 mmol/L (22-29); Chloride 105 mmol/L (98-107); Globulin 2.9 g/dL (1.3-4.6); Glomerular Filtration Rate 141.5 mL/min (90-130); Glucose 103 mg/dL (65-115); Osmolality Calculated 286 mOsm/kg (285-295); Phosphorus 2.5 mg/dL (2.5-4.5); Potassium 3.3 mmol/L (3.5-5.1); Sodium 138 mmol/L (136-145); Total Bilirubin 1.3 mg/dL (0.15-1.2)
[2024-01-02 08:29] LABS: Chol HDL Ratio 1.84 mg/dL (1.0-5.00); Cholesterol 138 mg/dL (0-200); HDL Cholesterol 75 mg/dL (60-100); LDL Cholesterol Calculated 43 mg/dL (50-129); LDL HDL Ratio 0.57 RATIO (0.00-3.22); Triglycerides 99 mg/dL (0-150)
[2024-01-02 08:33] LABS: Procalcitonin 0.55 ng/mL (0-0.5)
[2024-01-02] MEDS: levETIRAcetam 1,000 MG/100 ML PREMIX 400 MG IV ×3 (08:35→23:07)
[2024-01-02 08:49] LABS: Folate Level 5.7 ng/mL (4.5-32.2)
[2024-01-02 08:53] LABS: Creatinine Clr Calc Pharmacy 213.6404
[2024-01-02 08:54] LABS: Estmated Average Glucose 68
[2024-01-02] MEDS: sodium chloride 0.9% 1,000 ML 100 ML IV ×2 (09:53→20:46)
[2024-01-02] MEDS: vancomycin 100 mg/1 mL Oral Syringe 125 MG PO ×4 (09:54→20:45)
[2024-01-02] MEDS: acetaminophen 325 mg Tablet 650 MG PO (09:54)
[2024-01-02] MEDS: lidocaine 1% 5 ML in potassium chloride premix 100 ML 26.25 ML IV ×2 (11:35→15:47)
[2024-01-02 13:00] LABS: Troponin T (5th) Once 24 ng/L (0-15)
[2024-01-02 13:04] LABS: C.Diff PCR (Lab) NEGATIVE (Negative)
[2024-01-02] MEDS: pantoprazole 40 mg SDV IVP (13:07)
--- NOTE | 2024-01-02 14:17 | PM.PN ---
Subjective Subjective: No acute events overnight. Patient has remained hemodynamically stable and afebrile. On examination he was on 6 of Versed and 175 of fentanyl which was being weaned down during the day. Again seen later in the day he was off Versed and fentanyl 50. Patient was sedated but arousable. No seizure activities. Saturating well on ventilator settings of FiO2 30%, tidal volume 550 with a PEEP of 10. Urine output on the lower side of 800 cc since admission. Vitals/I&O/Wt Last Vital Signs Temp 99.1 F 01/02/24 12:17 Pulse 74 01/02/24 13:38 Resp 17 01/02/24 13:35 BP 108/61 01/02/24 10:45 Pulse Ox 97 01/02/24 13:35 O2 Del Method Mechanical Ventilation 01/02/24 13:30 FiO2 30 01/02/24 13:35 01/01/24 01/02/24 01/02/24 22:59 06:59 14:59 Intake Total 1494.084 / 3017.134 894.842 / 3911.976 1667.433 / 1667.433 Output Total 500 / 1250 100 / 1350 250 / 250 Balance 994.084 / 1767.134 794.842 / 2561.976 1417.433 / 1417.433 Weight last 48 hrs Weight 131.995 kg Weight 131.995 kg Weight 131.496 kg Weight 136.078 kg Physical Exam Narrative: General: Intubated, sedated, poorly kept HEENT: PERRLA, pupils bilaterally equal and reactive Chest: Normal vesicular breath sounds, coarse crackles in bilateral lower zone more so than right, occasional rhonchi, equal good air entry bilaterally CVS: S1-S2 regular, no murmurs, no tachycardia, no gallops, no rubs Abdomen: Soft, nontender, no organomegaly, bowel sounds present Neuro: No focal deficits, no facial deformity, intubated, sedated Urinary Catheter Management: Saenz: Cath Placed During This Visit: yes Reason for Continuing Indwelling Catheter: Accurate Measurement of Urinary Output in Critically Ill Patients Urinary Catheter Date of Insertion: 01/01/24 Urinary Catheter Time of Insertion: 08:07 Data 01/02/24 06:48 01/02/24 06:48 Micro: Microbiology 01/01/24 07:30 Gram Stain - Final Sputum - Endotracheal Tube Aspirate Sputum Culture - Preliminary 01/01/24 07:30 Blood Culture - Preliminary Blood Staphylococcus sp coag neg 01/01/24 08:05 Urine Culture - Preliminary Urine,Clean Catch Gram Negative Rods 01/01/24 07:50 Blood Culture - Preliminary Blood NEGATIVE TO DATE A&P Assessment and plan (1) Sepsis: SIRS: Tachycardic, Febrile, Leukocytosis Source: Pneumonia versus UTI, meningitis less likely End organ damage: Acute metabolic encephalopathy, respiratory failure Lactic acid elevated. Fluid bolus 30 cc/kg per body weight. After that maintenance with normal saline at 100 cc/h. Monitor blood pressures. Keep mean artery pressure 65 mmHg. Blood culture, urine culture, MRSA swab, procalcitonin, urine Legionella, bacterial antigen. Check respiratory viral panel, MRSA swab. Does have history of C. difficile colitis in the past. Check stool studies. Reviewed culture history. Usually sputum culture with Klebsiella, urine culture with E. coli both pansensitive, C. difficile positive in August 2022, MRSA negative. There is concern for possible meningitis though lumbar puncture could not be done in the ER due to body habitus. Depending on the clinical picture we will plan for lumbar puncture once IR team is available. Empirically start coverage with IV vancomycin and Zosyn. Empirically start on oral vancomycin 125 mg 4 times daily. De-escalate antibiotics as per culture results. (2) Acute hypoxic respiratory failure: Appreciate ABG. Change ventilator settings with FiO2 down to 40%. Repeat ABG in few hours. Keep saturation over 90%. Wean ventilator accordingly. Sedation with IV Versed and fentanyl drip. (3) Status epilepticus: History of intractable seizures in the past secondary to intellectual now. Check Keppra, lacosamide, phenytoin level. Neurology consulted from the ER. Medication changed to IV from oral. Continue with fosphenytoin 100 cc every 8 hourly, lacosamide IV 100 every 8 hourly, Keppra 1000 every 8 hourly. Currently patient sedated with Versed. Plan for sedation vacation in the next 24 hours (4) Aspiration pneumonia: Most likely in setting of status epilepticus. Sent sputum culture. Antibiotics as above (5) Hyponatremia: Can be precipitation factor for seizures though less likely as sodium only 133. Most likely in setting of dehydration. Normal saline 100 cc/h as above. Repeat BMP. (6) Cystitis: (7) Elevated lactic acid level: (8) Metabolic acidosis: (9) Intellectual disability: (10) C. difficile colitis: (11) Bacteremia: Plan Analgesia: Currently on fentanyl drip Glycemic control: Not needed. Check A1c. Nutrition: Currently NPO. If remains intubated for more than 48 hours we will plan on tube feeding. CODE STATUS: Full code PUD prophylaxis: Protonix DVT prophylaxis: Heparin 5000 every 12 hourly Discharge planning: Back home with caregiver and possibly home health once medically stable Plan for the day: Continue with current seizure medications. Versed for now weaned off. Monitor for seizure activity. Sedation vacation. Let patient work on ventilator. Plan to put back on sedation at around 8 PM and wean again tomorrow morning at 6 AM with plan to extubate. Replace potassium with 80 mg IV. 20 mg of IV Lasix. Blood cultures 1 out of 4 bottles positive for coag negative staph. Could be contaminant. Repeat blood cultures in AM. For now continue with IV vancomycin and Zosyn. MRSA swab pending. Stool studies awaited. For now continue with oral vancomycin. If C. difficile is negative can plan to continue oral vancomycin till patient is on IV antibiotics given recurrent history of C. difficile. If positive will plan to continue oral vancomycin for 2 weeks after completion of IV antibiotic course. This documentation was created by [employer] [place]the [employer] electrical high tension tester software. Every effort was made to ensure accuracy of electrical high tension tester. Any obvious errors or omissions should be clarified with the author of the document. Attestations Medical Necessity Statement*: Requires further hospitalization for management of respiratory failure in setting of status epilepticus, sepsis with concerns for aspiration pneumonia, positive blood cultures in a patient with history of C. difficile colitis while patient remains on mechanical ventilation Critical Care Time: The high probability of a clinically significant, sudden or life threatening deterioration of the patient's [neurological, cardiac, renal] system(s) required my full and direct attention, intervention and personal management. The critical care time is as shown. This time is in addition to time spent performing any reported procedures but includes the following: [x] Data and vital sign review and interpretation [x] Patient assessment, examination and intervention [x] Documentation [x] Medication orders and management Critical Care Time (min): 90 Coding Level of Care Code Critical Care >/= 30 minutes Critical care time (in minutes): 90 The high probability of a clinically significant, sudden or life threatening deterioration, as referenced in this documentation, required my full and direct attention, intervention and personal management. The critical care time shown is in addition to time spent performing any reported separately billable procedures and includes the following: [x] Data and vital sign review and interpretation [x] Patient assessment, examination and intervention [x] Medication orders and management [x] Patient/Family updates as able [x] Care Coordination and Documentation. Diagnoses Sepsis A41.9 Acute hypoxic respiratory failure J96.01 Status epilepticus G40.901 Aspiration pneumonia J69.0 Hyponatremia E87.1 Cystitis N30.90 Elevated lactic acid level R79.89 Metabolic acidosis E87.20 Intellectual disability F79 C. difficile colitis A04.72 Bacteremia R78.81
[2024-01-02] MEDS: FUROsemide 10 mg/mL SDV 2mL 20 MG IVP (15:36)
[2024-01-02] MEDS: midazolam hcl 100 MG/100 ML BAG IV (18:49)
--- NOTE | 2024-01-02 19:19 | PC.NURSE ---
SHift SUmmary: Rested in bed throughout the day. Completely off of versed for about 8-9 hours of the shift. Neither nurse, nor family witnessed any seizure activity while off of versed. Alert but calm, will follow commands. TOtal urine output has been 1500mL, most of it coming after lasix administration. Per Dr koch-restart versed at 8pm, and start weaning at 6am on 02/03/2024, message to nurse order placed for this.
[2024-01-02] MEDS: fentaNYL 2,500 MCG/250 ML BAG 15 MCG IV (22:02)
[2024-01-03] VITALS (26 sets, daily range): BP systolic 89–139; BP diastolic 53–78; PULSE 61–92; RESP 12–20; TEMP 36.7–37.7; O2SAT 93–100; BMI 34.2
[2024-01-03] MEDS: piperacillin-tazobactam 3.375 GM in sodium chloride 0.9% (plus) 50 ML IV ×3 (00:46→16:53)
[2024-01-03] MEDS: heparin 5,000 unit/mL INJ 1 mL 5000 UNIT SUBCUT ×2 (02:12→14:01)
[2024-01-03] MEDS: ipratropium-albuterol 3 mL Neb INHALATION ×4 (02:14→21:07)
--- NOTE | 2024-01-03 04:00 | XRR_ITS ---
PROCEDURE INFORMATION: Exam: XR Chest Exam date and time: 01/03/2024 4:34 AM Age: 53 years old Clinical indication: Condition or disease; Lung condition and disease; Respiratory failure; Patient HX: --f/u for resp failure. Intubated with og in place. TECHNIQUE: Imaging protocol: Radiologic exam of the chest. Views: 1 view. COMPARISON: CR XR chest 1V portable [id number] 01/02/2024 7:31 AM FINDINGS: Tubes, catheters and devices: Endotracheal and feeding tubes again demonstrated. The endotracheal tube terminates 5.2 cm above the jim. Lungs: Interstitial prominence and mild basilar airspace disease. Pleural spaces: No pleural effusion. Heart/Mediastinum: No cardiomegaly. Bones/joints: Unremarkable. XR/XR chest 1V portable [id number] IMPRESSION: Interstitial prominence and mild basilar airspace disease.
[2024-01-03 04:54] LABS: ABG PCO2 40.3 mmHg (35-45); ABG PH Result 7.39 (7.35-7.45); Alveolar-Arterial Oxygen Gradi 5.6 mmHg (5-10); Arterial Blood Gas Hematocrit 39.5 % (42-52); Base Excess ABG -0.5 mmol/L (-2.0-2.0); Blood Gas Allen Test Pos; Blood Gas Sample Site Radial, right; Blood Gas Sample Type Arterial; Blood Gas Tidal Volume 0.55; Carboxyhemoglobin 1.6 %THgb (0.4-20.1); HCO3 ABG 24.4 mmol/L (22-26); HGB O2 Sat 98.8 % (95-100); Ionized Calcium Level - ABG 1.2 mmol/L (1.1-1.4); Methemoglobin < 0.0 % (0.4-1.5); Oxygen Device VENT; Oxygen Saturation ABG > 100.0; PO2 FiO2 Ratio Arterial Blood 0; Potassium Level - ABG 3.6 mmol/L (3.5-5.0); Total Hemoglobin 12.9 g/dL (14-18)
[2024-01-03 05:45] LABS: Basophils % 0.2 %; Eosinophils # 0.2 10^3/uL (0.0-0.8); Eosinophils % 1.1 %; Hematocrit 33.1 % (37-53); Lymphocytes # 1.3 10^3/uL (0.8-4.8); Mean Corpuscular Hemoglobin 33.5 pg (27-33); Mean Corpuscular Volume 95.7 fl (82-101); Mean Platelet Volume 9.4 fL (7.4-10.4); Monocytes # 1.3 10^3/uL (0.2-0.9); Monocytes % 7.3 %; Neutrophils # 15.03 10^3/uL (1.8-7.7); Neutrophils % 83.7 %; Nucleated Red Blood Cells % 0 %; Platelet Count 143 10^3/cmm (157-399); Red Blood Count 3.46 10^6/uL (3.85-5.65); Red Cell Distribution Width 13.7 % (12.1-15.1); White Blood Count 17.94 10^3/uL (3.29-11.43)
[2024-01-03 06:04] LABS: Alanine Aminotransferase 10 U/L (0-41); Albumin Level 3.1 g/dL (3.5-5.2); Alkaline Phosphatase 85 U/L (40-130); Anion Gap 11.7 (5-19); Aspartate Amino Transferase 13 U/L (0-40); Blood Urea Nitrogen 14 mg/dL (6-20); Calcium 8.1 mg/dL (8.5-10.5); Carbon Dioxide 23 mmol/L (22-29); Chloride 109 mmol/L (98-107); Creatinine Clr Calc Pharmacy 251.9332; Globulin 2.3 g/dL (1.3-4.6); Glomerular Filtration Rate 174.6 mL/min (90-130); Glucose 106 mg/dL (65-115); Osmolality Calculated 291 mOsm/kg (285-295); Potassium 3.7 mmol/L (3.5-5.1); Sodium 140 mmol/L (136-145); Total Bilirubin 0.9 mg/dL (0.15-1.2); Total Protein 5.4 g/dL (6.6-8.7)
[2024-01-03 06:05] LABS: Vancomycin Trough 9.1 ug/mL (10-15)
[2024-01-03] MEDS: vancomycin 2,000 MG/400 ML PIGGYBACK 200 MG IV ×2 (06:09→16:52)
--- NOTE | 2024-01-03 06:12 | PC.NURSE ---
Vanc Trough: Patient's vancomycin trough was 9.1, no spot indicated in the titration on the OCT to insert trough level. Order said to notify pharmacy if trough was less than 8. Vancomycin was given as ordered.
[2024-01-03] MEDS: lacosamide 100 MG in sodium chloride 0.9% 50 ML 120 MG IV ×3 (06:23→22:51)
[2024-01-03] MEDS: budesonide 0.5 mg/2 mL Neb INHALATION ×2 (08:20→21:07)
--- NOTE | 2024-01-03 09:06 | P.PN_ITS ---
Subjective 2 Subjective: Jaziel Willis is a 53 year old male with a history of intractable epilepsy followed by Dr. Forrester. Patient was reported to experience recurrent seizures/status epilepticus presented to the emergency room via EMS. The patient was given 10 mg Ativan. On arrival patient reported to be hypoxic and in status epilepticus. Patient unable to give any further history but there was report that the patient was brought in from home. Patient was emergently resuscitated after arrival as he was in severe respiratory distress and was reported to be unable to control secretions and required suctioning due to the amount of vomitus in the posterior pharynx. Patient placed on IV sedation. Patient was also reported to have elevated white count 32,000 with neutrophil shift and monocyte shift. Platelet count decreased at 158,000. Sodium decreased at 133. Bicarb decreased at 17. Elevated lactic acid 7.3. Elevated ammonia 68. Elevated troponin level and elevated natruretic protein. Urinalysis was positive for greater than 100 white cells per high-powered field with 2+ bacteria. Positive leukoesterase. 2+ blood 1+ nitrate and 1+ glucose. Drug screen positive for benzodiazepines and barbiturates. Dilantin level 10.3. Lacosamide level and Keppra levels pending. Noncontrast head CT revealed no acute findings. Patient doing better with no reports of any further seizures since admission. Patient currently on IV formulation of anticonvulsant medications. Albumin level decreased at 3.1. Repeat total Dilantin level 01/02/2024 6.8. Free Dilantin level was not ordered since it is a send out. Patient alert and following commands. Patient still intubated. Drug allergies: None Current home medications: Lacosamide 250 mg p.o. twice daily Keppra 2000 mg p.o. twice daily Ativan 2 mg p.o. daily, as needed seizure Dilantin 50 mg chewable tablets 250 mg p.o. every 8 hours Trazodone 100 mg p.o. 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 difficile enterocolitis Intellectual disability Peripheral vascular disease Hypertriglyceridemia Low serum iron Low serum calcium Venous insufficiency of the lower extremity Hypertension Past surgical history: History of laparoscopic cholecystectomy History of total colectomy August 2022S/P vein stripping Family history: Family History Father Cancer Lung cancer Mother CAD (coronary artery disease) Other DiabetesHeart diseaseHypertension Denies family history of Stroke Habits: None Review of systems: Patient denies pain. He is still intubated and therefore full review of systems could not be obtained. Vitals/I&O/Wt Last Vital Signs Temp 98.2 F 01/03/24 00:00 Pulse 70 01/03/24 08:21 Resp 16 01/03/24 08:25 BP 134/67 01/03/24 04:00 Pulse Ox 100 01/03/24 08:25 O2 Del Method Mechanical Ventilation 01/03/24 08:21 FiO2 30 01/03/24 08:25 01/02/24 01/03/24 01/03/24 22:59 06:59 14:59 Intake Total 2033.058 / 3700.491 272.983 / 3973.474 529.350 / 529.350 Output Total 1175 / 1675 460 / 2135 Balance 858.058 / 2025.491 -187.017 / 1838.474 529.350 / 529.350 Weight last 48 hrs Weight 281 lb Weight 291 lb Weight 291 lb Weight 289 lb 14.4 oz Physical Exam 2 Narrative: The patient is alert. He is intubated. Patient follows commands. He is in no obvious distress at this time. Pupils equal round and reactive to light and accommodation. There is no obvious facial weakness. Patient is intubated. Motor testing patient moves all extremities to command. Plantar responses flexor bilaterally. There was no clonus. Throat could not be evaluated secondary to intubation. Sensory examination intact to touch. Urinary Catheter Management: Saenz: Cath Placed During This Visit: yes Reason for Continuing Indwelling Catheter: Accurate Measurement of Urinary Output in Critically Ill Patients Urinary Catheter Date of Insertion: 01/01/24 Urinary Catheter Time of Insertion: 08:07 Data 01/03/24 05:30 01/03/24 05:30 Micro: Microbiology 01/03/24 05:35 Blood Culture - Preliminary Blood SPECIMEN COLLECTED 01/03/24 05:30 Blood Culture - Preliminary Blood SPECIMEN COLLECTED 01/02/24 12:00 Stool Lactoferrin - Final Stool Occult Blood (FIT) - Final 01/02/24 12:00 Bacterial Antigens - Final Urine Kidney 01/02/24 12:00 Legionella Urinary Antigen - Final Unknown Source 01/01/24 07:30 Gram Stain - Final Sputum - Endotracheal Tube Aspirate Sputum Culture - Preliminary 01/01/24 07:30 Blood Culture - Preliminary Blood Staphylococcus sp coag neg 01/01/24 08:05 Urine Culture - Preliminary Urine,Clean Catch Gram Negative Rods 01/01/24 07:50 Blood Culture - Preliminary Blood NEGATIVE TO DATE A&P Assessment and plan (1) Intractable epilepsy: Impression: 1. Intractable epilepsy with recurrent seizures 2. Status epilepticus 01/01/2024, resolved 3. History of colostomy 4. History of C. difficile 5. Intellectual disability 6. Decreased serum albumin 3.1 Plan: 1. Continue anticonvulsant medications intravenously at current doses for now 2. Agree with plans for extubation 3. Continue seizure precautions Qualifiers: Epilepsy type: partial idiopathic, localized onset Status epilepticus: with status epilepticus Qualified Code(s): G40.011 - Localization-related (focal) (partial) idiopathic epilepsy and epileptic syndromes with seizures of localized onset, intractable, with status epilepticus (2) Status epilepticus: Attestations 2 Medical Necessity Statement*: The patient was evaluated by neurology secondary to history of intractable epilepsy and admitted secondary to status epilepticus Coding Level of Care Code 80895 Diagnoses Partial idiopathic epilepsy with seizures of localized onset, intractable, with status epilepticus G40.011 Epilepsy type: partial idiopathic, localized onset Status epilepticus: with status epilepticus Status epilepticus G40.901
[2024-01-03] MEDS: levETIRAcetam 1,000 MG/100 ML PREMIX 400 MG IV ×2 (09:55→16:47)
[2024-01-03] MEDS: vancomycin 100 mg/1 mL Oral Syringe 125 MG PO ×4 (10:15→20:03)
[2024-01-03] MEDS: sodium chloride 0.9% 1,000 ML 100 ML IV (10:47)
[2024-01-03 10:48] LABS: Levetiracetam Immunoassy 34.3 mcg/mL (6.0-46.0)
[2024-01-03] MEDS: dexmedeTOMIDine 0.9 % NaCL 400 MCG/100 ML PREMIX 3.18999999999999995 MCG IV (11:09)
[2024-01-03] MEDS: pantoprazole 40 mg SDV IVP (14:01)
[2024-01-03 14:23] LABS: Methicillin-Resist S.aureu PCR NOT DETECTED (NOT DETECTED)
[2024-01-03] MEDS: acetaminophen 325 mg Tablet 650 MG PO (17:04)
--- NOTE | 2024-01-03 18:17 | PC.NURSE ---
SHift Summary: Extubated at 1230 pm. No seizure activity observed. Up to a chair for about 3 hours, a little unsteady on his feet, 1-2 person asssit. Uneventful shift.
--- NOTE | 2024-01-03 20:22 | P.PN_ITS ---
Subjective 2 Subjective: He is intubated, sedation is weaned off. He is awake, following directions, nodding answers questions. Not in distress, not short of breath. Would like to get extubated. Vitals/I&O/Wt Last Vital Signs Temp 100 F H 01/03/24 16:00 Pulse 76 01/03/24 16:00 Resp 16 01/03/24 16:00 BP 135/65 01/03/24 16:00 Pulse Ox 98 01/03/24 16:00 O2 Del Method Nasal Cannula 01/03/24 16:00 O2 Flow Rate 2 01/03/24 16:00 FiO2 24 01/03/24 12:04 01/03/24 01/03/24 01/03/24 06:59 14:59 22:59 Intake Total 1322.983 / 5023.474 695.291 / 695.291 417 / 1112.291 Output Total 460 / 2135 150 / 150 600 / 750 Balance 862.983 / 2888.474 545.291 / 545.291 -183 / 362.291 Weight last 48 hrs Weight 127.459 kg Weight 131.995 kg Weight 131.995 kg Physical Exam 2 Const: COMMON NORMALS: alert GENERAL APPEARANCE: cooperative and patient mechanically ventilated ORIENTATION/CONSCIOUSNESS: Yes awake HENMT: COMMON NORMALS: oropharynx normal Neck/C-Spine: COMMON NORMALS: no JVD Resp: COMMON NORMALS: normal respiratory effort and clear to auscultation bilaterally AUSCULTATION: clear to auscultation bilaterally Cardio: COMMON NORMALS: no JVD, regular rhythm, S1 normal heart sound present, S2 normal heart sound present and No murmurs present (Cardio) RHYTHM: regular rhythm HEART SOUNDS: S1 normal heart sound present and S2 normal heart sound present GI: COMMON NORMALS: Normal to inspection, nondistended, normoactive bowel sounds present, Soft to palpation and non-tender PALPATION: Yes Soft to palpation Extremity: COMMON NORMALS: no joint enlargement GENERAL: Yes edema (Trace) Neuro: COMMON NORMALS: moves all extremities SENSORIUM/ORIENTATION: Yes alert Skin: COMMON NORMALS: no rashes or lesions noted GENERAL SKIN EXAM: no rashes or lesions noted OTHER: Family denies itching of lower extremities. Urinary Catheter Management: Saenz: Cath Placed During This Visit: yes Reason for Continuing Indwelling Catheter: Accurate Measurement of Urinary Output in Critically Ill Patients Urinary Catheter Date of Insertion: 01/01/24 Urinary Catheter Time of Insertion: 08:07 Data 01/03/24 05:30 01/03/24 05:30 Micro: Microbiology 01/01/24 08:05 Urine Culture - Final Urine,Clean Catch Escherichia coli 01/01/24 07:30 Gram Stain - Final Sputum - Endotracheal Tube Aspirate Sputum Culture - Final 01/03/24 05:35 Blood Culture - Preliminary Blood SPECIMEN COLLECTED 01/03/24 05:30 Blood Culture - Preliminary Blood SPECIMEN COLLECTED 01/02/24 12:00 Stool Lactoferrin - Final Stool Occult Blood (FIT) - Final 01/02/24 12:00 Bacterial Antigens - Final Urine Kidney 01/02/24 12:00 Legionella Urinary Antigen - Final Unknown Source A&P Assessment and plan (1) Sepsis: Reviewed vitals, CBC, CMP, ABG, chest x-ray, discussed with respiratory therapist, discussed with nursing and case checker. He did well with breathing trial, RSBI 35. Extubated, continues on 2 L nasal cannula. Monitor oxygenation. Follow-up blood counts, monitor vitals. Continue empiric antibiotic coverage for possible pneumonia. Reviewed urine culture, noted Pansensitive E. coli. SIRS: Tachycardic, Febrile, Leukocytosis Source: Pneumonia versus UTI, meningitis less likely End organ damage: Acute metabolic encephalopathy, respiratory failure Lactic acid elevated. Fluid bolus 30 cc/kg per body weight. After that maintenance with normal saline at 100 cc/h. Monitor blood pressures. Keep mean artery pressure 65 mmHg. Blood culture, urine culture, MRSA swab, procalcitonin, urine Legionella, bacterial antigen. Check respiratory viral panel, MRSA swab. Does have history of C. difficile colitis in the past. Check stool studies. Reviewed culture history. Usually sputum culture with Klebsiella, urine culture with E. coli both pansensitive, C. difficile positive in August 2022, MRSA negative. There is concern for possible meningitis though lumbar puncture could not be done in the ER due to body habitus. Depending on the clinical picture we will plan for lumbar puncture once IR team is available. Empirically start coverage with IV vancomycin and Zosyn. Empirically start on oral vancomycin 125 mg 4 times daily. De-escalate antibiotics as per culture results. (2) Acute hypoxic respiratory failure: Extubated as above. Appreciate ABG. Change ventilator settings with FiO2 down to 40%. Repeat ABG in few hours. Keep saturation over 90%. Wean ventilator accordingly. Sedation with IV Versed and fentanyl drip. (3) Status epilepticus: History of intractable seizures in the past secondary to intellectual now. Check Keppra, lacosamide, phenytoin level. Neurology consulted from the ER. Medication changed to IV from oral. Continue with fosphenytoin 100 cc every 8 hourly, lacosamide IV 100 every 8 hourly, Keppra 1000 every 8 hourly. Currently patient sedated with Versed. Plan for sedation vacation in the next 24 hours (4) Aspiration pneumonia: Most likely in setting of status epilepticus. Sent sputum culture. Antibiotics as above (5) Hyponatremia: Can be precipitation factor for seizures though less likely as sodium only 133. Most likely in setting of dehydration. Normal saline 100 cc/h as above. Repeat BMP. (6) Cystitis: (7) Elevated lactic acid level: (8) Metabolic acidosis: (9) Intellectual disability: (10) C. difficile colitis: (11) Bacteremia: Plan Analgesia: Currently on fentanyl drip Glycemic control: Not needed. Check A1c. Nutrition: Currently NPO. If remains intubated for more than 48 hours we will plan on tube feeding. CODE STATUS: Full code PUD prophylaxis: Protonix DVT prophylaxis: Heparin 5000 every 12 hourly Discharge planning: Back home with caregiver and possibly home health once medically stable This documentation was created by [employer] engineering coordinator software. Every effort was made to ensure accuracy of engineering coordinator. Any obvious errors or omissions should be clarified with the author of the document. Attestations 2 Medical Necessity Statement*: Continue admission for assessment of management of sepsis, following status epilepticus, possible pneumonia, UTI, Coding Level of Care Code Critical Care >/= 30 minutes Critical care time (in minutes): 45 The high probability of a clinically significant, sudden or life threatening deterioration, as referenced in this documentation, required my full and direct attention, intervention and personal management. The critical care time shown is in addition to time spent performing any reported separately billable procedures and includes the following: [x] Data and vital sign review and interpretation [x ] Patient assessment, examination and intervention [x] Medication orders and management [x] Patient/Family updates as able [x] Care Coordination and Documentation. Diagnoses Sepsis A41.9 Acute hypoxic respiratory failure J96.01 Status epilepticus G40.901 Aspiration pneumonia J69.0 Hyponatremia E87.1 Cystitis N30.90 Elevated lactic acid level R79.89 Metabolic acidosis E87.20 Intellectual disability F79 C. difficile colitis A04.72 Bacteremia R78.81
[2024-01-03] MEDS: morphine 4 mg/mL SDV 1 mL 2 MG IVP (22:51)
[2024-01-04] VITALS (15 sets, daily range): BP systolic 134–145; BP diastolic 56–81; PULSE 69–78; RESP 16–20; TEMP 36.9–37.4; O2SAT 94–95; BMI 35.2
[2024-01-04] MEDS: levETIRAcetam 1,000 MG/100 ML PREMIX 400 MG IV ×2 (00:23→08:30)
[2024-01-04] MEDS: piperacillin-tazobactam 3.375 GM in sodium chloride 0.9% (plus) 50 ML IV ×2 (00:34→09:43)
[2024-01-04] MEDS: heparin 5,000 unit/mL INJ 1 mL 5000 UNIT SUBCUT ×2 (02:08→13:32)
[2024-01-04] MEDS: ipratropium-albuterol 3 mL Neb INHALATION ×3 (02:18→13:36)
--- NOTE | 2024-01-04 04:00 | XRR_ITS ---
PROCEDURE INFORMATION: Exam: XR Chest Exam date and time: 01/04/2024 3:47 AM Age: 53 years old Clinical indication: Dyspnea; Additional info: Intubated TECHNIQUE: Imaging protocol: Radiologic exam of the chest. Views: 1 view. COMPARISON: CR XR chest 1V portable [id number] 01/03/2024 4:34 AM FINDINGS: Tubes, catheters and devices: Extubation. Enteric tube removal. Lungs: Low lung volumes. Patchy left lower lobe airspace 0 opacities are more prominent than comparison which may be related to the decreased lung volumes. Pleural spaces: Unremarkable. No pleural effusion. No pneumothorax. Heart/Mediastinum: Unremarkable. No cardiomegaly. Bones/joints: Unremarkable. XR/XR chest 1V portable [id number] IMPRESSION: Decreased lung volumes after extubation. Prominent lower lobe airspace opacities which may represent pneumonia.
[2024-01-04] MEDS: vancomycin 2,000 MG/400 ML PIGGYBACK 200 MG IV (04:03)
[2024-01-04 05:59] LABS: Blood Urea Nitrogen 11 mg/dL (6-20); Calcium 8.3 mg/dL (8.5-10.5); Carbon Dioxide 20 mmol/L (22-29); Chloride 108 mmol/L (98-107); Glomerular Filtration Rate 225.9 mL/min (90-130); Glucose 78 mg/dL (65-115); Osmolality Calculated 288 mOsm/kg (285-295); Sodium 140 mmol/L (136-145)
[2024-01-04 06:10] LABS: Anion Gap 15.8 (5-19); Creatinine Clr Calc Pharmacy 319.6637; Potassium 3.8 mmol/L (3.5-5.1)
[2024-01-04] MEDS: lacosamide 100 MG in sodium chloride 0.9% 50 ML 120 MG IV (06:23)
[2024-01-04] MEDS: budesonide 0.5 mg/2 mL Neb INHALATION (08:11)
[2024-01-04 09:21] LABS: Basophils % 0.3 %; Eosinophils # 0.3 10^3/uL (0.0-0.8); Eosinophils % 2.6 %; Hematocrit 34.6 % (37-53); Lymphocytes % 10.5 %; Mean Corpuscular HGB Conc 34.1 g/dL (30-55); Mean Corpuscular Volume 96.6 fl (82-101); Mean Platelet Volume 11.3 fL (7.4-10.4); Monocytes # 0.9 10^3/uL (0.2-0.9); Monocytes % 9.1 %; Neutrophils # 7.67 10^3/uL (1.8-7.7); Neutrophils % 77.1 %; Nucleated Red Blood Cells % 0 %; Platelet Count 100 10^3/cmm (157-399); Red Blood Count 3.58 10^6/uL (3.85-5.65); Red Cell Distribution Width 13.2 % (12.1-15.1); White Blood Count 9.95 10^3/uL (3.29-11.43)
[2024-01-04] MEDS: sodium chloride 0.9% 1,000 ML 100 ML IV (09:42)
[2024-01-04] MEDS: vancomycin 100 mg/1 mL Oral Syringe 125 MG PO ×2 (09:43→13:33)
[2024-01-04] MEDS: pantoprazole 40 mg SDV IVP (13:32)
--- NOTE | 2024-01-04 15:09 | PM.DCS ---
Discharge Providers Date of Admission: 01/01/24 09:04 Date of Discharge: January 04, 2024 Attending Provider at Admission: Mg Wilson MD Attending Provider at Discharge: Osmar Jimenez Primary Care Provider: NIRANJAN Drummond Diagnoses at Discharge Discharge Diagnosis (1) Sepsis: Status: Acute (2) Acute hypoxic respiratory failure: Status: Acute (3) Status epilepticus: Status: Acute (4) Aspiration pneumonia: Status: Acute (5) Hyponatremia: Status: Acute (6) Cystitis: Status: Acute (7) Elevated lactic acid level: Status: Acute (8) Metabolic acidosis: Status: Acute (9) Intellectual disability: Status: Chronic (10) C. difficile colitis: Status: Acute (11) Bacteremia: Status: Acute Reason for Visit Reason for Visit: SEIZURES Hospital Course Hospital Course 53-year-old gentleman with history of epilepsy, history of breakthrough seizure, status epilepticus, intellectual disability, following with neurology, also history of colostomy, history of C. difficile colitis, other medical problems was admitted with altered mental status, recurrent seizure on presentation with concern for status epilepticus, febrile, with sepsis secondary to aspiration pneumonia, possible UTI, urine did end up growing pansensitive E. coli. Was treated with IV antibiotics, fosphenytoin, lacosamide, IV Keppra, additionally sedation with Versed. Neurology was consulted. Was covered with empiric antibiotic coverage with Zosyn, vancomycin. Seizures resolved, mental status gradually improved, oxygenation improved, weaned off mechanical ventilatory support, successfully extubated, he is awake and alert, back to baseline mental status. Assessed by speech therapy, continue dysphagia level 7 diet, thin liquids, as discussed with him and his mother needs to slow down while eating. With history of COPD, difficult to assess for diarrhea with colostomy, with high leukocytosis on presentation with C. difficile PCR was checked and was negative. Leukocytosis resolved with treatment of sepsis. He is otherwise doing well, would like to return home, discussed with neurology -resume prior home medications, follow-up with Dr. Forrester who knows him well in the office for reassessment and adjustment of antiepileptic regimen. Please follow-up regarding recovery from aspiration pneumonia, UTI. Additionally incidentally noted 2.6 cm left thyroid nodule seen on admission CT, on thyroid ultrasound found to be mildly suspicious, discussed with patient is mother, please follow-up and consider arrangements for FNA. Physical Exam Narrative: Awake, alert, in good spirits, interacting. Watching TV. Mother at bedside. Const: COMMON NORMALS: patient oriented x3 and alert GENERAL APPEARANCE: cooperative ORIENTATION/CONSCIOUSNESS: Yes awake HENMT: COMMON NORMALS: oropharynx normal Neck/C-Spine: COMMON NORMALS: no JVD Resp: COMMON NORMALS: normal respiratory effort and clear to auscultation bilaterally AUSCULTATION: clear to auscultation bilaterally Cardio: COMMON NORMALS: no JVD, regular rhythm, S1 normal heart sound present, S2 normal heart sound present and No murmurs present (Cardio) RHYTHM: regular rhythm HEART SOUNDS: S1 normal heart sound present and S2 normal heart sound present GI: COMMON NORMALS: Normal to inspection, nondistended, normoactive bowel sounds present, Soft to palpation and non-tender PALPATION: Yes Soft to palpation Extremity: COMMON NORMALS: no joint enlargement and no pedal edema Neuro: COMMON NORMALS: patient oriented x3 and moves all extremities SENSORIUM/ORIENTATION: Yes alert Skin: COMMON NORMALS: no rashes or lesions noted GENERAL SKIN EXAM: no rashes or lesions noted Urinary Catheter Management: Saenz: Cath Placed During This Visit: yes Reason for Continuing Indwelling Catheter: Accurate Measurement of Urinary Output in Critically Ill Patients Urinary Catheter Date of Insertion: 01/01/24 Urinary Catheter Time of Insertion: 08:07 Discharge Data Studies Completed and Pending Completed Studies During Hospitalization Category Date Time Status CT head wo con* [id number] Stat Cat Scan 01/01/24 07:25 Completed CTA chest [CT angio chest PE protcl 28634] Stat Cat Scan 01/01/24 10:45 Completed CXRP [XR chest 1V portable [id number]] Stat Exams 01/01/24 07:21 Completed XR abdomen 1V* [id number] Routine Exams 01/01/24 14:02 Completed XR chest 1V portable [id number] QAM Exams 01/02/24 04:00 Completed XR chest 1V portable [id number] QAM Exams 01/03/24 04:00 Completed XR chest 1V portable [id number] QAM Exams 01/04/24 04:00 [place] thyroid 52680 Routine Ultrasound 01/01/24 14:00 Completed Pending at discharge Category Date Time Status Basic Metabolic Panel AM LABS Lab 01/05/24 04:00 Ordered Basic Metabolic Panel AM LABS Lab 01/06/24 04:00 Ordered Blood Culture AM LABS Lab 01/03/24 05:35 Results Blood Culture Stat Lab 01/01/24 07:50 Results Complete Blood Count w/Auto AM LABS Lab 01/05/24 04:00 Ordered Complete Blood Count w/Auto AM LABS Lab 01/06/24 04:00 Ordered KEPPRA [Levetiracetam Immunoassy] Routine Lab 01/01/24 07:30 Results Lacosamide (Vimpat) Routine Lab 01/01/24 07:30 Results OVA and Parasites, Conc and PE Routine Lab 01/01/24 14:02 Results Salmonella / Shigella / Campy Routine Lab 01/01/24 14:02 Results Radiology Impressions Head CT 01/01/24 07:25 IMPRESSION: No large territorial infarct or intracranial bleed. Chest CTA 01/01/24 10:45 IMPRESSION: 1. No pulmonary embolism. 2. Multifocal opacities predominantly at the lower lung bases right middle lobe consistent with multifocal pneumonia. 3. Patulous and fluid-filled esophagus. 4. NG tube and ET tube in place. 5. Heterogeneous left thyroid mass measuring 3.8 x 2.6 centimeters with mass effect onto the trachea. COMMENTS: Consistent with the [employer]'s Incidental Findings Committee white paper (J Am Lily Radiol 2015): In patients aged 35 years and older with an incidental thyroid nodule equal to or greater than 1.[address], MRI or extrathyroidal US, further evaluation with dedicated thyroid US is recommended for patients with normal life expectancy and without comorbidities. For smaller nodules without suspicious features, no further evaluation or follow up is recommended. Thyroid Ultrasound 01/01/24 14:00 IMPRESSION: Left mid thyroid nodule TI-RADS 3 measuring 3.1 centimeters. Mildly Suspicious: Consider FNA for further management. Abdomen X-Ray 01/01/24 14:02 IMPRESSION: Nonobstructive bowel gas pattern. Chest X-Ray 01/04/24 04:00 IMPRESSION: Decreased lung volumes after extubation. Prominent lower lobe airspace opacities which may represent pneumonia. Laboratory Results WBC 9.95 10^3/uL (3.29-11.43) 01/04/24 09:02 Corrected WBC Cancelled 01/04/24 05:15 RBC 3.58 10^6/uL (3.85-5.65) L 01/04/24 09:02 Hgb 11.80 g/dL (11.27-16.99) 01/04/24 09:02 Hct 34.6 % (37-53) L 01/04/24 09:02 MCV 96.6 fl (82-101) 01/04/24 09:02 MCH 33.0 pg (27-33) 01/04/24 09:02 MCHC 34.1 g/dL (30-55) 01/04/24 09:02 RDW 13.2 % (12.1-15.1) 01/04/24 09:02 Plt Count 100 10^3/cmm (157-399) L D 01/04/24 09:02 MPV 11.3 fL (7.4-10.4) H 01/04/24 09:02 Gran % Cancelled 01/04/24 05:15 Neut % (Auto) 77.1 % 01/04/24 09:02 Lymph % (Auto) 10.5 % 01/04/24 09:02 [place] % (Auto) 9.1 % 01/04/24 09:02 Eos % (Auto) 2.6 % 01/04/24 09:02 Baso % (Auto) 0.3 % 01/04/24 09:02 Neut # (Auto) 7.67 10^3/uL (1.8-7.7) 01/04/24 09:02 Lymph # (Auto) 1.0 10^3/uL (0.8-4.8) 01/04/24 09:02 [place] # (Auto) 0.9 10^3/uL (0.2-0.9) 01/04/24 09:02 Eos # (Auto) 0.3 10^3/uL (0.0-0.8) 01/04/24 09:02 Baso # (Auto) 0.0 10^3/uL (0.0-0.1) 01/04/24 09:02 Absolute Gran (auto) Cancelled 01/04/24 05:15 Nucleated RBC % (auto) 0 % 01/04/24 09:02 Nucleated RBCs # 0.0 /100WBC 01/04/24 09:02 Specimen Type Arterial 01/03/24 04:40 Sample Site Radial, right 01/03/24 04:40 ABG pH 7.39 (7.35-7.45) 01/03/24 04:40 ABG pCO2 40.3 mmHg (35-45) 01/03/24 04:40 ABG pO2 118.0 mmHg (80.0-100.0) H 01/03/24 04:40 ABG PO2/FiO2 Ratio 0 01/03/24 04:40 ABG HCO3 24.4 mmol/L (22-26) 01/03/24 04:40 ABG O2 Saturation > 100.0 01/03/24 04:40 ABG Base Excess -0.5 mmol/L (-2.0-2.0) 01/03/24 04:40 Ricardo Test Pos 01/03/24 04:40 A-a O2 Gradient 5.6 mmHg (5-10) 01/03/24 04:40 Hematocrit 39.5 % (42-52) L 01/03/24 04:40 Hgb O2 Saturation 98.8 % (95-100) 01/03/24 04:40 Carboxyhemoglobin 1.6 %THgb (0.4-20.1) 01/03/24 04:40 Methemoglobin < 0.0 % (0.4-1.5) L 01/03/24 04:40 Total Hemoglobin 12.9 g/dL (14-18) L 01/03/24 04:40 Sodium 140.0 mmol/L (131-143) 01/03/24 04:40 Potassium 3.6 mmol/L (3.5-5.0) 01/03/24 04:40 Glucose 104.0 mg/dL (70-115) 01/03/24 04:40 Ionized Calcium 1.2 mmol/L (1.1-1.4) 01/03/24 04:40 O2 Delivery Device Vent 01/03/24 04:40 FiO2 30.0 % 01/03/24 04:40 Tidal Volume 0.55 01/03/24 04:40 PEEP 10.0 cmH20 01/03/24 04:40 Customer Service Specialist ID yorna 01/03/24 04:40 Sodium 140 mmol/L (136-145) 01/04/24 05:15 Potassium 3.8 mmol/L (3.5-5.1) 01/04/24 05:15 Chloride 108 mmol/L (98-107) H 01/04/24 05:15 Carbon Dioxide 20 mmol/L (22-29) L 01/04/24 05:15 Anion Gap 15.8 (5-19) 01/04/24 05:15 BUN 11 mg/dL (6-20) 01/04/24 05:15 Creatinine 0.4 mg/dL (0.7-1.2) L 01/04/24 05:15 GFR Calculation 225.9 mL/min (90-130) H 01/04/24 05:15 Glucose 78 mg/dL (65-115) 01/04/24 05:15 Estimat Average Glucose 68 01/02/24 06:48 Hemoglobin A1c 4.0 % (4.0-6.0) 01/02/24 06:48 Calculated Osmolality 288 mOsm/kg (285-295) 01/04/24 05:15 Lactic Acid 7.3 mmol/L (0.5-2.2) H* 01/01/24 07:30 Lactic Acid (Sepsis) 2.3 mmol/L (0.5-2.2) H 01/01/24 15:11 Calcium 8.3 mg/dL (8.5-10.5) L 01/04/24 05:15 Phosphorus 2.5 mg/dL (2.5-4.5) 01/02/24 06:48 Magnesium 2.0 mg/dL (1.7-2.3) 01/02/24 06:48 Iron 22 ug/dL (59-158) L 01/01/24 08:00 TIBC 173 mcg/dl 01/01/24 08:00 % Saturation 12.7 % (20-50) L 01/01/24 08:00 Unsat Iron Binding 151 ug/dL (112-347) 01/01/24 08:00 Total Bilirubin 0.9 mg/dL (0.15-1.2) 01/03/24 05:30 AST 13 U/L (0-40) 01/03/24 05:30 ALT 10 U/L (0-41) 01/03/24 05:30 Alkaline Phosphatase 85 U/L (40-130) 01/03/24 05:30 Ammonia 68 umol/L (16-60) H 01/01/24 07:30 Creatine Kinase 65 U/L (39-308) 01/01/24 07:30 Troponin T 5th Gen ng/L 24 ng/L (0-15) H 01/02/24 12:01 Troponin T Baseline 25 ng/L (0-15) H 01/01/24 07:30 Troponin T 120 Minute 75.20 ng/L (0-15) H 01/01/24 09:59 Delta Troponin T 50.20 ABS# (0-10) H* 01/01/24 09:59 Troponin T Hi Sens 6Hr 55.90 ng/L (0-15) H 01/01/24 15:11 Troponin T Hi Sens 6Hr Delta 30.90 ng/L (0-12) H* 01/01/24 15:11 NT-Pro-B Natriuret Pep 167 pg/mL (0-125) H 01/01/24 07:30 Total Protein 5.4 g/dL (6.6-8.7) L 01/03/24 05:30 Albumin 3.1 g/dL (3.5-5.2) L 01/03/24 05:30 Globulin 2.3 g/dL (1.3-4.6) 01/03/24 05:30 Triglycerides 99 mg/dL (0-150) 01/02/24 06:48 Cholesterol 138 mg/dL (0-200) 01/02/24 06:48 LDL Cholesterol, Calc 43 mg/dL (50-129) L 01/02/24 06:48 HDL Cholesterol 75 mg/dL (60-100) 01/02/24 06:48 LDL/HDL Ratio 0.57 RATIO (0.00-3.22) 01/02/24 06:48 Cholesterol/HDL Ratio 1.84 mg/dL (1.0-5.00) 01/02/24 06:48 Lipase 19 U/L (13-60) 01/01/24 07:30 Vitamin B12 346 pg/mL (232-1245) 01/01/24 08:00 Folate 5.7 ng/mL (4.5-32.2) 01/02/24 06:48 Procalcitonin 0.55 ng/mL (0-0.5) H 01/02/24 06:48 TSH 3.70 uIU/mL (0.27-4.20) 01/01/24 08:00 Urine Color Yellow (Yellow) 01/01/24 08:05 Urine Appearance Cloudy (CLEAR) A 01/01/24 08:05 Urine pH 5 (5-7) 01/01/24 08:05 Ur Specific [place] 1.030 (1.005-1.030) 01/01/24 08:05 Urine Protein Neg (Negative) 01/01/24 08:05 Urine Glucose (UA) 1+ (Normal) H 01/01/24 08:05 Urine Ketones 1+ (Negative) H 01/01/24 08:05 Urine Blood 2+ (Negative) H 01/01/24 08:05 Urine Nitrate Positive (Negative) H 01/01/24 08:05 Urine Bilirubin Neg (Negative) 01/01/24 08:05 Urine Urobilinogen Norm mg/dL (Negative) 01/01/24 08:05 Ur Leukocyte Esterase 2+ (Negative) H 01/01/24 08:05 Urine RBC 5-10 /hpf (0-2) H 01/01/24 08:05 Urine WBC >100 /hpf (0-5) H 01/01/24 08:05 Ur Squamous Epith Cells 0-4 /hpf (0-5) H 01/01/24 08:05 Amorphous Sediment Not Reportable 01/01/24 08:05 Urine Bacteria 2+ /hpf (NONE) H 01/01/24 08:05 Coarse Granular Casts 15-25 /lpf H 01/01/24 08:05 Vancomycin Trough 9.1 ug/mL (10-15) L 01/03/24 05:30 Salicylates < 0.3 mg/dL (3-10) L 01/01/24 07:30 Urine Opiates Screen Negative ng/mL (Negative) 01/01/24 08:05 Ur Barbiturates Screen Positive ng/mL (Negative) H 01/01/24 08:05 Phenytoin 6.8 ug/mL (10-20) L 01/02/24 06:48 Levetiracetam 34.3 mcg/mL (6.0-46.0) 01/01/24 07:30 Ur Phencyclidine Scrn Negative ng/mL (Negative) 01/01/24 08:05 Ur Amphetamines Screen Negative ng/mL (Negative) 01/01/24 08:05 U Benzodiazepines Scrn Positive ng/mL (Negative) H 01/01/24 08:05 Urine Cocaine Screen Negative ng/mL (Negative) 01/01/24 08:05 U Marijuana (THC) Screen Negative ng/mL (Negative) 01/01/24 08:05 Ethyl Alcohol < 10 mg/dL (0-10) 01/01/24 07:30 Adenovirus (PCR) Not detected (NOT DETECT) 01/01/24 09:41 C. pneumoniae DNA (PCR) Not detected (NOT DETECT) 01/01/24 09:41 C. difficile (PCR) Negative (Negative) 01/02/24 12:00 Coronavirus 229E (PCR) Not detected (NOT DETECT) 01/01/24 09:41 Human Metapneumovir PCR Not detected (NOT DETECT) 01/01/24 09:41 Influenza A (H1) PCR Not detected (NOT DETECT) 01/01/24 09:41 Influ A (H1/09) PCR Not detected (NOT DETECT) 01/01/24 09:41 Influenza A (H3) PCR Not detected (NOT DETECT) 01/01/24 09:41 Influenza Type A (PCR) Not detected (NOT DETECT) 01/01/24 09:41 Influenza Type B (PCR) Not detected (NOT DETECT) 01/01/24 09:41 M. pneumoniae (PCR) Not detected (NOT DETECT) 01/01/24 09:41 Parainfluenza 1 (PCR) Not detected (NOT DETECT) 01/01/24 09:41 Parainfluenza 2 (PCR) Not detected (NOT DETECT) 01/01/24 09:41 Parainfluenza 3 (PCR) Not detected (NOT DETECT) 01/01/24 09:41 Parainfluenza 4 (PCR) Not detected (NOT DETECT) 01/01/24 09:41 RSV Type A (PCR) Not detected (NOT DETECT) 01/01/24 09:41 RSV Type B (PCR) Not detected (NOT DETECT) 01/01/24 09:41 Entero/Rhino (PCR) Not detected (NOT DETECT) 01/01/24 09:41 SARS-CoV-2 (PCR) Not detected (NOT DETECT) 01/01/24 09:41 MRSA (PCR) Not detected (NOT DETECTED) 01/02/24 12:00 Vitals Last Vital Signs Temp 98.4 F 01/04/24 12:28 Pulse 69 01/04/24 13:36 Resp 20 H 01/04/24 13:36 BP 134/56 01/04/24 04:00 Pulse Ox 95 01/04/24 13:36 O2 Del Method Room Air 01/04/24 13:36 O2 Flow Rate 2 01/03/24 16:00 FiO2 24 01/03/24 12:04 Discharge Plan Discharge Patient Disposition: Home Condition: Stable Prescriptions: New cefdinir 300 mg capsule 300 mg PO BID 5 Days Qty: 10 0RF Continued (DME) Compression hose 30/40 See Rx Instructions .Route .MEDSUPPLY Qty: 1 2RF Rx Instructions: Measure to fit A6531 (DME) Diabetic Shoes with 3 pairs of inserts See Rx Instructions .ROUTE .MEDSUPPLY Qty: 1 0RF Rx Instructions: As directed by HOME Vimpat 50 mg tablet 250 mg PO BID 60 Days Qty: 600 5RF phenytoin 50 mg tablet,chewable 250 mg PO Q8H Qty: 90 6RF trazodone 100 mg tablet 100 mg PO BEDTIME Qty: 30 5RF (DME) Compression hose 18/30 See Rx Instructions Rx Instructions: Measure for size A6530 lorazepam [Lorazepam Intensol] 2 mg/mL concentrate 2 mg PO DAILY PRN (Reason: seizures) levetiracetam 1,000 mg tablet 2,000 mg PO BID Discharge Orders: Discharge Order (Routine); Ordered 01/04/24 Ordered By: Osmar Jimenez Referrals: Amy Forrester MD [Physician] - 4-7 days (Breakthrough seizures/status epilepticus) Candi Latif FNP-C [Primary Care Provider] - 01/12/24 9:00 am Patient Instructions: Cefdinir (By mouth), Opioid Safety Activity Restrictions/Additional Instructions: Follow-up with your neurologist for reassessment of medication combination with breakthrough seizures/status epilepticus. Seek medical attention in case of an recurrence. Continue dysphagia diet with easy to chew foods. Slow down while eating, avoid aspiration. Follow-up with your primary doctor for reassessment of urinary tract infection, possible aspiration pneumonia. Have your primary doctor follow-up blood counts and mildly decreased platelet level. Follow-up with your primary doctor regarding left mid thyroid nodule measuring 3.1 cm, mildly suspicious. Discuss consideration of fine-needle aspiration biopsy. Discharge Attestations Time Spent in Discharge Care*: greater than 30 min Status at Discharge: Cognitive status at discharge: moderately impaired cognition, Behavioral status at discharge: cooperative, Quality Metrics Clinical Quality Measures [ No reported AMI, CVA or VTE this stay] Coding Level of Care Code 35837 Total time (in minutes) for Discharge: 55 Diagnoses Sepsis A41.9 Acute hypoxic respiratory failure J96.01 Status epilepticus G40.901 Aspiration pneumonia J69.0 Hyponatremia E87.1 Cystitis N30.90 Elevated lactic acid level R79.89 Metabolic acidosis E87.20 Intellectual disability F79 C. difficile colitis A04.72 Bacteremia R78.81
--- NOTE | 2024-01-04 16:21 | PC.NURSE ---
Discharge Note Patient discharged to [home] via [w/c to POV] accompanied by [his family]. Discharge instructions reviewed with patient and/or office services representative. Mobile pharmacy medications and/or prescriptions provided. Belongings/home medications returned.
== END 2024-01-04 16:22 | disposition home or self-care (01) | DRG 871 ==
LOC: ER 07:37 → ICU 10:00
PROVIDERS: Admitting Provider Student in an Organized Health Care Education/Training Program; Emergency Provider Family Medicine; PCP Nurse Practitioner; Visit Provider Internal Medicine
DX: A41.9 Sepsis, unspecified organism (principal); G93.41 Metabolic encephalopathy; J69.0 Pneumonitis due to inhalation of food and vomit; J96.01 Acute respiratory failure with hypoxia; G40.911 Epilepsy, unspecified, intractable, with status epilepticus; E87.1 Hypo-osmolality and hyponatremia; E87.20 Acidosis, unspecified; A04.72 Enterocolitis due to Clostridium difficile, not specified as recurrent; R65.20 Severe sepsis without septic shock; F79 Unspecified intellectual disabilities; I73.9 Peripheral vascular disease, unspecified; E78.1 Pure hyperglyceridemia; I10 Essential (primary) hypertension; E66.01 Morbid (severe) obesity due to excess calories; N30.90 Cystitis, unspecified without hematuria; B96.20 Unspecified Escherichia coli [E. coli] as the cause of diseases classified elsewhere; E04.1 Nontoxic single thyroid nodule; D69.6 Thrombocytopenia, unspecified; Z68.35 Body mass index [BMI] 35.0-35.9, adult; Z93.2 Ileostomy status; Z90.49 Acquired absence of other specified parts of digestive tract; Z11.52 Encounter for screening for COVID-19
CPT/HCPCS: 31500; 36415; 36600; 51702; 70450; 71045; 71275; 74018; 76536; 80048; 80051; 80053; 80061; 80177; 80185; 80202; 80299; 80306; 80307; 81001; 82140; 82274; 82330; 82550; 82607; 82746; 82805; 83036; 83540; 83550; 83605; 83630; 83690; 83735; 83880; 84100; 84145; 84443; 84484; 85025; 86403; 87040; 87045; 87070; 87077; 87086; 87150; 87177; 87186; 87205; 87209; 87427; 87449; 87486; 87493; 87581; 87633; 87641; 92523; 92610; 93005; 94002; 94003; 94640; 94799; 96365; 96366; 96367; 96368; 96372; 96374; 96376; 99291; 99292; A4570; C9113; C9254; J0131; J1644; J1940; J1953; J2250; J2270; J2543; J2704; J3010; J3370; J3372; J3480; J3490; J7030; J7050; J7626; Q2009; Q9967

== ENCOUNTER → 2024-01-25 13:51 | Outpatient (BNVA) | payer MEDICARE, MEDICAID, SELFPAY | PROVIDERS: PCP Nurse Practitioner; Visit Provider Specialist | DX: G40.011 Localization-related (focal) (partial) idiopathic epilepsy and epileptic syndromes with seizures of localized onset, intractable, with status epilepticus (principal) | CPT/HCPCS: 99214; 99215 ==

== ENCOUNTER 2024-02-11 12:18 | Outpatient (CLI) | payer MEDICARE, MEDICAID, SELFPAY ==
--- NOTE | 2024-02-11 12:29 | US_ITS ---
WS: [id number] ULTRASOUND-GUIDED LEFT THYROID NODULE FNA HISTORY: NONTOXIC SINGLE THYROID NODULE Procedure, risks, and complications were explained to the patient and his mother. Consent has been ob tained. The skin is cleansed with ChloraPrep and anesthetized with 1% buffered lidocaine. FNA performed with 25 gauge needles. histologist technologist is present to fix slides. US/US biopsy/FNA thyroid [id number] IMPRESSION: Uncomplicated FNA of a LEFT thyroid nodule. Final pathology results pending.
--- NOTE | 2024-02-11 13:49 | XR_ITS ---
WS: [id number] RIGHT KNEE: 3 VIEW(S) TECHNIQUE: AP, oblique(s) and lateral. HISTORY: M25.561 - Pain in right knee COMPARISON: 11/09/2022 No fracture or dislocation. No joint space narrowing or osteophytes. No joint effusion. Enthesopathy at the superior patella. No soft tissue abnormality. XR/XR knee RT 3V* [id number] IMPRESSION: No acute abnormality noted at the RIGHT knee. No joint effusion or fracture.
== END 2024-02-11 12:19 | disposition home or self-care (01) ==
LOC: RAD 12:21
PROVIDERS: PCP Nurse Practitioner; Visit Provider Nurse Practitioner
DX: M25.561 Pain in right knee (principal); M76.891 Other specified enthesopathies of right lower limb, excluding foot; E04.1 Nontoxic single thyroid nodule
CPT/HCPCS: 10005; 73562; 88173

== ENCOUNTER → 2024-03-22 12:57 | Outpatient (BNVA) | payer MEDICARE, MEDICAID, SELFPAY | PROVIDERS: PCP Nurse Practitioner; Visit Provider Specialist | DX: G40.309 Generalized idiopathic epilepsy and epileptic syndromes, not intractable, without status epilepticus (principal); G40.802 Other epilepsy, not intractable, without status epilepticus; R27.0 Ataxia, unspecified; G40.011 Localization-related (focal) (partial) idiopathic epilepsy and epileptic syndromes with seizures of localized onset, intractable, with status epilepticus | CPT/HCPCS: 99214 ==

== ENCOUNTER 2024-03-23 13:42 | Outpatient (CLI) | payer MEDICARE, MEDICAID, SELFPAY ==
[2024-03-23 16:23] LABS: Phenytoin Dilantin 10.8 ug/mL (10-20)
== END 2024-03-23 13:43 | disposition home or self-care (01) ==
PROVIDERS: PCP Nurse Practitioner; Visit Provider Specialist
DX: G40.309 Generalized idiopathic epilepsy and epileptic syndromes, not intractable, without status epilepticus (principal); G40.802 Other epilepsy, not intractable, without status epilepticus; R27.0 Ataxia, unspecified
CPT/HCPCS: 80175; 80185; 80299

== ENCOUNTER → 2024-07-20 14:57 | Outpatient (BNVA) | payer MEDICARE, MEDICAID, SELFPAY | PROVIDERS: PCP Nurse Practitioner; Visit Provider Specialist | DX: G40.011 Localization-related (focal) (partial) idiopathic epilepsy and epileptic syndromes with seizures of localized onset, intractable, with status epilepticus (principal); G40.309 Generalized idiopathic epilepsy and epileptic syndromes, not intractable, without status epilepticus; G40.802 Other epilepsy, not intractable, without status epilepticus; R27.0 Ataxia, unspecified; R03.0 Elevated blood-pressure reading, without diagnosis of hypertension | CPT/HCPCS: 99214 ==

== ENCOUNTER 2024-09-07 11:46 | Inpatient (IN) | payer MEDICARE, MEDICAID, SELFPAY ==
[2024-09-07] VITALS (42 sets, daily range): BP systolic 93–178; BP diastolic 54–105; PULSE 64–115; RESP 12–26; TEMP 37.1–38.4; O2SAT 95–100; BMI 38.3; BMI 39.2
--- NOTE | 2024-09-07 11:47 | XR_ITS ---
WS: [id number] Portable AP supine chest, 09/07/2024 Clinical Data: dyspnea/cough Comparison: Portable chest, 01/04/2024 Findings: The endotracheal tube ends at the level of the clavicles and is well above the jim. The heart and mediastinum are shifted from left to right. The right lung is partially expanded but the le ft lung is fully expanded. No nodules, masses or effusions are seen. The aortic arch is tortuous. Mon itor leads are on the chest wall. XR/XR chest 1V portable [id number] Impression: 1. Volume loss of the right lung with shift of the heart and mediastinum from l eft to right. 2. Endotracheal tube above the jim.
--- NOTE | 2024-09-07 11:50 | CT_ITS ---
WS: [id number] CT CERVICAL SPINE HISTORY: seizure TECHNIQUE: Contiguous 2.0 mm axial imaging performed through the entire cervical spine. Sagittal and coronal reformats also performed. All CT scans at [facility] use at least one of these dose o ptimization techniques: automated exposure control; mA and/or kV adjustment per patient size (include s targeted exams where dose is matched to clinical indication); or iterative reconstruction. DLP: 2090.50 mGy.cm COMPARISON: 02/16/2021 Mild curvature of the cervical spine. Posterior cervical alignment is normal. Normal facet joint alig nment. No acute fractures. No disc protrusions, central or foraminal stenosis. Patient is intubated. The tip is not included on this exam. Enlarged LEFT thyroid 3.8 x 3.2 cm has be en previously described. Atelectatic lung in the medial RIGHT upper lung field. CT/CT cervical spin wo con* [id number] IMPRESSION: 1. No acute cervical spine fracture. 2. Atelectatic lung noted at the RIGHT apex. 3. Tip of the endotracheal tube is not included. On a recent radiograph the ti p appears appropriate.
--- NOTE | 2024-09-07 11:57 | ECG_ITS ---
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 Measurements Intervals [place] Rate: 79 P: 56 WA: 188 QRS: -17 QRSD: 148 T: 44 QT: 409 QTc: 471 Interpretive Statements SINUS RHYTHM LEFT ATRIAL ENLARGEMENT [-0.15mV P-WAVE IN V1/V2] RIGHT BUNDLE BRANCH BLOCK [120+ ms QRS DURATION, UPRIGHT V1, 40+ ms S IN I/aVL/V4/V5/V6] Compared to ECG 01/01/2024 10:32:09 Atrial abnormality now present Electronically Signed On 09-07-2024 18:14:54 [employer] by Luciana Whaley M.D. [email or web address]
[2024-09-07 12:01] LABS: ABG PH Result 7.28 (7.35-7.45); Alveolar-Arterial Oxygen Gradi 64.4 mmHg (5-10); Arterial Blood Gas Hematocrit 50.6 % (42-52); Base Excess ABG -2.2 mmol/L (-2.0-2.0); Blood Gas Allen Test Pos; Blood Gas Operator Identificat WALCI; Blood Gas Sample Site Radial, right; Blood Gas Sample Type Arterial; Carboxyhemoglobin 1.1 %THgb (0.4-20.1); HCO3 ABG 25.7 mmol/L (22-26); HGB O2 Sat 97.7 % (95-100); Ionized Calcium Level - ABG 1.2 mmol/L (1.1-1.4); Oxygen Device VENT; Oxygen Saturation ABG > 99.1; PO2 FiO2 Ratio Arterial Blood 155; Potassium Level - ABG 3.9 mmol/L (3.5-5.0); Total Hemoglobin 16.5 g/dL (14-18)
--- NOTE | 2024-09-07 12:01 | ED_ITS ---
HPI - Seizure 2 General: Chief Complaint: Seizure Stated Complaint: SEIZURE Time Seen by Provider: 09/07/24 11:47 History of Present Illness: HPI Narrative: 53-year-old male presents to the emergen cy room intubated on the ventilator. He had several seizures prior to arrival they given him I have had adverse that he seem to continue to seize within gave him ketamine and rocuronium. Uncertain if he is seizing now. Patient has a history of frontal lobe seizures he is on multiple seizure medications he had several episodes in the past for his been admitted after status epilepticus. He has had prolonged postictal phases. He has a little bit of a low-grade fever there is no family available initially Seizure History: Yes Related Data Home Medications Medication Instructions Recorded Confirmed Compression hose 07/13/21 09/07/24 lacosamide 50 mg tablet 300 mg PO BID 09/07/24 09/07/24 Previous Rx's Medication Instructions Recorded Compression hose #1 ea 09/21/20 Diabetic Shoes with 3 pairs of #1 ea 03/23/22 inserts levothyroxine 25 mcg tablet 25 mcg PO DAILY #30 tabs 03/20/24 (Levo-T) trazodone 100 mg tablet 100 mg PO BEDTIME #30 tabs 05/29/24 lamotrigine 200 mg tablet 200 mg PO BID #60 tabs 07/20/24 levetiracetam 1,000 mg tablet 2,000 mg (2 x 1,000 mg) PO BID 07/20/24 #120 tabs phenytoin 50 mg chewable tablet 250 mg (5 x 50 mg) PO Q8H #450 tabs 07/20/24 Allergies Allergy/AdvReac Type Severity Reaction Status Date / Time No Known Allergies Allergy Verified 07/20/24 15:04 Review of Systems 2 General: Reports: ROS unobtainable due to endotracheal tube PFSH ED 2 PFSH: Medical History C. difficile colitis Symptomatic cholelithiasis Status epilepticus Generalized seizure Developmental disorder Frontal lobe epilepsy Cellulitis of oral soft tissues Endotracheally intubated Status epilepticus Essential hypertension Generalized epilepsy Morbid obesity Hypertension Intellectual disability Peripheral vascular disease Venous stasis dermatitis Leukocytosis Seizure Surgical History History of laparoscopic cholecystectomy History of total colectomy August 2022 S/P vein stripping Family History Father Cancer Lung cancer Mother CAD (coronary artery disease) Other Diabetes Heart disease Hypertension Denies family history of Stroke Social History Smoking and tobacco/nicotine status: never used tobacco/nicotine Second hand smoke exposure: No Alcohol intake: never Substance/Drug Use: never Adopted: No Caregiver/support person: Yes Lives independently: No Household members: family Housing: House Marital status: Single Number of children: 0 service: No Current occupational status: disabled Do you think of yourself as: Straight/Heterosexual Current gender identity: Male Physical Exam 2 HENMT: COMMON NORMALS: normocephalic and atraumatic HEAD & SCALP: n ormocephalic and atraumatic Resp: COMMON NORMALS: normal respiratory effort, No retractions, No use of accessory muscles and clear to auscultation bilaterally AUSCULTATION: clear to auscultation bilaterally Cardio: COMMON NORMALS: regular rate, regular rhythm and No murmurs present (Cardio) RATE: regular rate RHYTHM: regular rhythm GI: COMMON NORMALS: Soft to palpation and No hepatosplenomegaly present A USCULTATION: Yes normoactive bowel sounds PALPATION: Yes Soft to palpation, No Tenderness to palpation present (GI), No Guarding due to palpation present (GI) and Yes No hepatosplenomegaly present Extremity: COMMON NORMALS: normal to inspection, capillary refill normal, no clubbing, cyanosis or edema, no calf tenderness and no pedal edema Skin: COMMON NORMALS: no rashes or lesions noted GENERAL SKIN EXAM: no rashes or lesions noted Course 2 Vital Signs: Vital signs: Vital Signs Temperature 99.0 F 09/07/24 11:47 Pulse Rate 70 09/07/24 12:58 Respiratory Rate 23 H 09/07/24 13:49 Blood Pressure 148/76 09/07/24 12:58 Pulse Oximetry 97 09/07/24 12:58 Oxygen Delivery Me thod Room Air 09/07/24 12:58 Fraction of Inspir ed Oxygen 50 09/07/24 13:49 MDM - Seizure MDM Narrative Medical decision making narrative: Patient unresponsive initially was came and had been given rocuronium and ketamine we monitored him for a bit we are going to try to get CTs but he started waking up we given 5 mg of Versed were able to get the imaging which was normal. He continues to be reliant on the vent couple of hours after getting the Versed he still not will began to woke up. He has had similar episodes in the past. Will admit him to the ICU on the ventilator discussed Dr. Mckeon consult Dr. tAkinson who has seen him in the past. Labs and imaging reviewed lactate and ammonia are elevated as would be suspected with a seizure history. He has a mild white count is elevated and is signs of a cystitis. I do not believe he is septic at this point in the good part of the abnormal labs including lactic are from the seizures however we will treat him with antibiotics for the cystitis. Lab Data 09/07/24 12:01 09/07/24 12:01 Labs: Radiology Impressions Chest X-Ray 09/07/24 11:47 Impression: 1. Volume loss of the right lung with shift of the heart and mediastinum from left to right. 2. Endotracheal tube above the jim. Cervical Spine CT 09/07/24 11:50 IMPRESSION: 1. No acute cervical spine fracture. 2. Atelectatic lung noted at the RIGHT apex. 3. Tip of the endotracheal tube is not included. On a recent radiograph the tip appears appropriate. Head CT 09/07/24 12:36 IMPRESSION: 1. No acute intracranial hemorrhage or edema. 2. Mild atrophy and small vessel disease. Stable noncontrast head CT since 01/01/2024. 3. Moderate mucoperiosteal sinus disease in the ethmoid and sphenoid sinuses. Laboratory Results WBC 12.66 10^3/uL (3.29-11.43) H 09/07/24 12: RBC 4.72 10^6/uL (3.85-5.65) 09/07/24 12:01 Hgb 15.40 g/dL (11.27-16.99) 09/07/24 12:01 Hct 45.5 % (37-53) 09/07/24 12: MCV 96.4 fl (82-101) 09/07/24 12: MCH 32.6 pg (27-33) 09/07/24 12:01 MCHC 33.8 g/dL (30-55) 09/07/24 12:01 RDW 14.0 % (12.1-15.1) 09/07/24 12:01 Plt Count 199 10^3/cmm (157-399) 09/07/24 12:01 MPV 9.4 fL (7.4-10.4) 09/07/24 12:01 Neut % (Auto) 73.7 % 09/07/24 12:01 Lymph % (Auto) 13.1 % 09/07/24 12:01 [place] % (Auto) 8.1 % 09/07/24 12:01 Eos % (Auto) 3.2 % 09/07/24 12:01 Baso % (Auto) 0.6 % 09/07/24 12:01 Neut # (Auto) 9.31 10^3/uL (1.8-7.7) H 09/07/24 12:01 Lymph # (Auto) 1.7 10^3/uL (0.8-4.8) 09/07/24 12:01 [place] # (Auto) 1.0 10^3/uL (0.2-0.9) H 09/07/24 12:01 Eos # (Auto) 0.4 10^3/uL (0.0-0.8) 09/07/24 12:01 Baso # (Auto) 0.1 10^3/uL (0.0-0.1) 09/07/24 12:01 Nucleated RBC % (auto) 0 % 09/07/24 12:01 Nucleated RBCs # 0.0 /100WBC 09/07/24 12:01 Specimen Type Arterial 09/07/24 11:50 Sample Site Radial, right 09/07/24 11:50 ABG pH 7.28 (7.35-7.45) L 09/07/24 11:50 ABG pCO2 55.0 mmHg (35-45) H 09/07/24 11:50 ABG pO2 155.0 mmHg (80.0-100.0) H 09/07/24 11:50 ABG PO2/FiO2 Ratio 155 09/07/24 11:50 ABG HCO3 25.7 mmol/L (22-26) 09/07/24 11:50 ABG O2 Saturation > 99.1 09/07/24 11:50 ABG Base Excess -2.2 mmol/L (-2.0-2.0) L 09/07/24 11:50 Ricardo Test Pos 09/07/24 11:50 A-a O2 Gradient 64.4 mmHg (5-10) H 09/07/24 11:50 Hematocrit 50.6 % (42-52) 09/07/24 11:50 Hgb O2 Saturation 97.7 % (95-100) 09/07/24 11:50 Carboxyhemoglobin 1.1 %THgb (0.4-20.1) 09/07/24 11:50 Methemoglobin 1.0 % (0.4-1.5) 09/07/24 11:50 Total Hemoglobin 16.5 g/dL (14-18) 09/07/24 11:50 Sodium 140.0 mmol/L (131-143) 09/07/24 11:50 Potassium 3.9 mmol/L (3.5-5.0) 09/07/24 11:50 Glucose 124.0 mg/dL (70-115) H 09/07/24 11:50 Ionized Calcium 1.2 mmol/L (1.1-1.4) 09/07/24 11:50 O2 Delivery Device Vent 09/07/24 11:50 FiO2 100.0 % 09/07/24 11:50 Tidal Volume 0.50 09/07/24 11:50 PEEP 5.0 cmH20 09/07/24 11:50 Licensed Psychologist Manager ID [place] 09/07/24 11:50 Sodium 136 mmol/L (136-145) 09/07/24 12:01 Potassium 4.1 mmol/L (3.5-5.1) 09/07/24 12:01 Chloride 100 mmol/L (98-107) 09/07/24 12:01 Carbon Dioxide 22 mmol/L (22-29) 09/07/24 12:01 Anion Gap 18.1 (5-19) 09/07/24 12:01 BUN 8 mg/dL (6-20) 09/07/24 12:01 Creatinine 0.6 mg/dL (0.7-1.2) L 09/07/24 12:01 GFR Calculation 141.5 mL/min (90-130) H 09/07/24 12:01 Glucose 117 mg/dL (65-115) H 09/07/24 12:01 Calculated Osmolality 281 mOsm/kg (285-295) L 09/07/24 12:01 Lactic Acid 4.2 mmol/L (0.5-2.2) H* 09/07/24 12:01 Calcium 9.0 mg/dL (8.5-10.5) 09/07/24 12:01 Magnesium 2.4 mg/dL (1.7-2.3) H 09/07/24 12:01 Total Bilirubin 0.3 mg/dL (0.15-1.2) 09/07/24 12:01 AST 26 U/L (0-40) 09/07/24 12:01 ALT 22 U/L (0-41) 09/07/24 12:01 Alkaline Phosphatase 150 U/L (40-130) H 09/07/24 12:01 Ammonia 61 umol/L (16-60) H 09/07/24 12:01 Total Protein 7.1 g/dL (6.6-8.7) 09/07/24 12:01 Albumin 4.1 g/dL (3.5-5.2) 09/07/24 12:01 Globulin 3.0 g/dL (1.3-4.6) 09/07/24 12:01 TSH 7.04 uIU/mL (0.27-4.20) H 09/07/24 12:01 Urine Color Yellow (Yellow) 09/07/24 14:19 Urine Appearance Cloudy (CLEAR) A 09/07/24 14:19 Urine pH 5.0 (5-7) 09/07/24 14:19 Ur Specific [place] 1.017 (1.005-1.030) 09/07/24 14:19 Urine Protein 2+ (Negative) A 09/07/24 14:19 Urine Glucose (UA) Negative (Normal) 09/07/24 14:19 Urine Ketones Negative (Negative) 09/07/24 14:19 Urine Blood Trace (Negative) A 09/07/24 14:19 Urine Nitrate Positive (Negative) A 09/07/24 14:19 Urine Bilirubin Negative (Negative) 09/07/24 14:19 Urine Urobilinogen 0.2 mg/dL (Negative) 09/07/24 14:19 Ur Leukocyte Esterase 1+ (Negative) A 09/07/24 14:19 Urine RBC 0-2 /hpf (0-2) 09/07/24 14:19 Urine WBC 51-100 /hpf (0-5) H 09/07/24 14:19 Ur Squamous Epith Cells 0-5 /hpf (0-5) 09/07/24 14:19 Calcium Oxalate Crystal 5-10 /hpf H 09/07/24 14:19 Amorphous Sediment Not Reportable 09/07/24 14:19 Urine Bacteria 4+ /hpf (NONE) H 09/07/24 14:19 Hyaline Casts 9.07 /lpf 09/07/24 14:19 Phenytoin 8.0 ug/mL (10-20) L 09/07/24 12:01 All radiology interpretation(s) finalized by discharge Discharge Plan Discharge Patient Disposition: Admitted As Inpatient Admit Provider: Edwin Garibay Clinical Impression: Frontal lobe epilepsy, Intellectual disability, Patrick's paralysis (postepileptic), Cystitis Condition: Stable Coding Level of Care Code ED Brass Pickler for Antonio Avila
[2024-09-07 12:16] LABS: Basophils # 0.1 10^3/uL (0.0-0.1); Basophils % 0.6 %; Eosinophils # 0.4 10^3/uL (0.0-0.8); Eosinophils % 3.2 %; Hematocrit 45.5 % (37-53); Lymphocytes # 1.7 10^3/uL (0.8-4.8); Lymphocytes % 13.1 %; Mean Corpuscular HGB Conc 33.8 g/dL (30-55); Mean Corpuscular Hemoglobin 32.6 pg (27-33); Mean Corpuscular Volume 96.4 fl (82-101); Mean Platelet Volume 9.4 fL (7.4-10.4); Monocytes % 8.1 %; Neutrophils # 9.31 10^3/uL (1.8-7.7); Neutrophils % 73.7 %; Nucleated Red Blood Cells % 0 %; Platelet Count 199 10^3/cmm (157-399); Red Blood Count 4.72 10^6/uL (3.85-5.65); White Blood Count 12.66 10^3/uL (3.29-11.43)
--- NOTE | 2024-09-07 12:36 | CT_ITS ---
WS: [id number] CT HEAD NONCONTRAST HISTORY: SEIZURE TECHNIQUE: Contiguous axial imaging performed through the brain. Bone and soft tissue windows. Sagitt al and coronal reformats reviewed. All CT scans at [facility] use at least one of these dose optimization techniques: automated exposure control; mA and/or kV adjustment per patient size (includ es targeted exams where dose is matched to clinical indication); or iterative reconstruction. DLP: 2090.50 mGy.cm COMPARISON: 01/01/2024 No acute intracranial hemorrhage, midline shift or mass effect. Mild cerebral atrophy is stable. Mild small vessel disease. No inferior displacement of the cerebella r tonsils. Ventricles: Normal size with no hydrocephalus. Paranasal sinuses: Mucous retention cyst in the RIGHT maxillary sinus. Bilateral ethmoid and sphenoid mucoperiosteal thickening. No air-fluid levels in the sinuses. Mastoid air cells: Cerumen in the external auditory canals. Calvarium and scalp: Skull is intact with no soft tissue edema or swelling. CT/CT head wo con* [id number] IMPRESSION: 1. No acute intracranial hemorrhage or edema. 2. Mild atrophy and small vessel disease. Stable noncontrast head CT since 12/31. 3. Moderate mucoperiosteal sinus disease in the ethmoid and sphenoid sinuses.
[2024-09-07 12:40] LABS: Lactic Sepsis W/Reflex 4.2 mmol/L (0.5-2.2)
[2024-09-07 12:41] LABS: Ammonia 61 umol/L (16-60)
[2024-09-07] MEDS: midazolam 1 mg/mL INJ 2 mL 5 MG IVP (12:48)
[2024-09-07] MEDS: lacosamide 100 MG in sodium chloride 0.9% 50 ML 120 MG IV (12:48)
[2024-09-07 12:50] LABS: Alanine Aminotransferase 22 U/L (0-41); Albumin Level 4.1 g/dL (3.5-5.2); Alkaline Phosphatase 150 U/L (40-130); Anion Gap 18.1 (5-19); Aspartate Amino Transferase 26 U/L (0-40); Blood Urea Nitrogen 8 mg/dL (6-20); Carbon Dioxide 22 mmol/L (22-29); Chloride 100 mmol/L (98-107); Creatinine Clr Calc Pharmacy 222.5113; Glomerular Filtration Rate 141.5 mL/min (90-130); Glucose 117 mg/dL (65-115); Magnesium 2.4 mg/dL (1.7-2.3); Osmolality Calculated 281 mOsm/kg (285-295); Potassium 4.1 mmol/L (3.5-5.1); Sodium 136 mmol/L (136-145); Thyroid Stimulating Hormone 7.04 uIU/mL (0.27-4.20); Total Bilirubin 0.3 mg/dL (0.15-1.2); Total Protein 7.1 g/dL (6.6-8.7)
[2024-09-07] MEDS: levETIRAcetam 2,000 MG/200 ML PREMIX 400 MG IV (12:55)
[2024-09-07 14:00] LABS: Reflex Lactate Order REFLEX LACTIC ORDERD
[2024-09-07 14:30] LABS: Bilirubin Urine Negative (Negative); Blood Urine Trace (Negative); Glucose Urine UA Negative (Normal); Ketones Urine Negative (Negative); Leukocyte Esterase Urine 1+ (Negative); Nitrate Urine Positive (Negative); Protein Urine 2+ (Negative); Specific Gravity, Urine 1.017 (1.005-1.030); Urine Appearance Cloudy (CLEAR); Urine Color Yellow (Yellow); Urobilinogen Urine 0.2 mg/dL (Negative)
[2024-09-07 14:33] LABS: Add Urine Microscopic? YES; Bacteria Urine 4+ /hpf; Hyaline Casts Urine 9.07 /lpf; RBC Urine 0-2 /hpf (0-2); Squamous Epithelial Cell Urine 0-5 /hpf (0-5); WBC Urine 51-100 /hpf (0-5)
[2024-09-07 14:57] LABS: UA Slide Review UA Slide Review Perf
[2024-09-07 15:00] LABS: Add Urine Culture? Yes
--- NOTE | 2024-09-07 15:10 | CTR_ITS ---
PROCEDURE INFORMATION: Exam: CT Abdomen And Pelvis Without Contrast Exam date and time: 09/07/2024 4:38 PM Age: 53 years old Clinical indication: Other: Hematuria; Additional info: Hematuria cystitis TECHNIQUE: Imaging protocol: Computed tomography of the abdomen and pelvis without contrast. Radiation optimization: All CT scans at this facility use at least one of these dose optimization techniques: automated exposure control; mA and/or kV adjustment per patient size (includes targeted exams where dose is matched to clinical indication); or iterative reconstruction. COMPARISON: CT kidney stone [id number] 04/18/2023 9:29 AM RADIATION DOSE METRICS: Total DLP (mGy-cm): 1359.51 FINDINGS: Lungs: Right lower lobe volume loss features with peribronchial airspace opacities. Liver: Normal. No mass. Gallbladder and biliary ducts: Cholecystectomy. Nondilated biliary system. Pancreas: Normal. No ductal dilation. Spleen: Normal. No splenomegaly. Adrenal glands: Normal. No mass. Kidneys and ureters: 2 mm nonobstructing stone inferior left kidney. Negative for ureterolithiasis. Negative for hydroureteronephrosis. Probable multiple small right kidney simple cortical cysts which are incompletely characterized without contrast. No significant interval change from comparison. Stomach and bowel: Right lower quadrant ileostomy is unremarkable in appearance. Surgical exclusion of the rectosigmoid colon is unremarkable in appearance. Subtotal colectomy surgical changes are unremarkable. Negative for bowel obstruction or perforation. Appendix: No evidence of appendicitis. Intraperitoneal space: Unremarkable. No free air. No significant fluid collection. Vasculature: Unremarkable. No abdominal aortic aneurysm. Lymph nodes: Unremarkable. No enlarged lymph nodes. Urinary bladder: Saenz catheter in the bladder. Bladder is totally decompressed. No bladder stones identified. No obvious bladder mass. Reproductive: Unremarkable as visualized. Bones/joints: Unremarkable. No acute fracture. Soft tissues: Unremarkable. CT/CT kidney stone [id number] IMPRESSION: 1. No visible acute abdominopelvic pathology. 2. Punctate nonobstructing left kidney stone.
[2024-09-07 15:42] LABS: Lactic Acid level (Lactate) 2.5 mmol/L (0.5-2.2)
[2024-09-07] MEDS: piperacillin-tazobactam 3.375 GM in sodium chloride 0.9% (plus) 50 ML IV (15:47)
--- NOTE | 2024-09-07 16:09 | P.CONIM_ITS ---
Providers/Reason For Consult 2 Consulting Physician/Specialty*: Ar Atkinson MD neurology and epilepsy Reason for Consult*: Intractable epilepsy with recurrent seizures requiring intubation by EMS Attending Physician: Edwin Garibay MD Primary Care Provider: NIRANJAN Drummond History of Present Illness History of Present Illness Jaziel Willis is a 53 year old male with a history of intractable epilepsy and developmental delay followed by Dr. Forrester. The patient presents to the emergency room intubated on the ventilator. He had several seizures prior to arrival and was given ketamine and rocuronium. Since the ER physician was not sure if the patient was continuing to seize, neurology consult was obtained. Patient has a history of frontal lobe seizures he is on multiple seizure medications he had several episodes in the past for his been admitted after status epilepticus. He has had prolonged postictal phases. He has a little bit of a low-grade fever there was no family available initially during the emergency room physician's evaluation. Upon arrival to the emergency department room #11 the patient's family was at the bedside. The patient is currently intubated but now is wide-awake and cooperative and following all commands. There is no focal weakness. According to the family, approximately 3 to days prior to presenting to the [facility] emergency department the patient was acting confused and on 09/07/2024 the patient was reported not feeling well and went to lay down in his bedroom and was witnessed by a family member to have a grand mal seizure lasting for approximately 10- minutes. EMS was contacted and upon arrival of the patient was given medication and intubated. Drug allergies: None Current medications: Lacosamide 300 mg p.o. twice daily Lamictal 200 mg p.o. twice daily Keppra 2000 mg p.o. twice daily Dilantin 50 mg Infatabs chewable tablets 250 mg every 8 hours Trazodone 100 mg p.o. nightly Synthroid 25 mcg p.o. daily Past medical history: Intractable epilepsy Intellectual disability Thyroid nodule C. difficile colitis Hyponatremia Sepsis Aspiration pneumonia Cystitis Ileostomy Pseudomembranous colitis Hypokalemia Peripheral vascular disease Venous insufficiency of the lower extremities Hypertriglyceridemia Hypocalcemia Habits: None Social history: Patient lives with his family Family history: Negative for seizures Review of Systems 2 General: Reports: ROS unobtainable due to endotracheal tube Medications/Allergies Home Medications Medication Instructions Recorded Confirmed Last Taken Type Compression hose #1 ea 09/21/20 09/07/24 Unknown Rx Compression hose 07/13/21 09/07/24 Unknown History Diabetic Shoes with 3 pairs of #1 ea 03/23/22 09/07/24 Unknown Rx inserts levothyroxine 25 mcg tablet 25 mcg PO DAILY #30 tabs 03/20/24 09/07/24 Unknown Rx (Levo-T) trazodone 100 mg tablet 100 mg PO BEDTIME #30 tabs 05/29/24 09/07/24 Unknown Rx lamotrigine 200 mg tablet 200 mg PO BID #60 tabs 07/20/24 09/07/24 Unknown Rx levetiracetam 1,000 mg tablet 2,000 mg (2 x 1,000 mg) PO BID 07/20/24 09/07/24 Unknown Rx #120 tabs phenytoin 50 mg chewable tablet 250 mg (5 x 50 mg) PO Q8H #450 tabs 07/20/24 09/07/24 Unknown Rx lacosamide 50 mg tablet 300 mg PO BID 09/07/24 09/07/24 Unknown History Allergies Allergy/AdvReac Type Severity Reaction Status Date / Time No Known Allergies Allergy Verified 07/20/24 15:04 Current Medications Generic Name Dose Route Start Last Admin Trade Name Mychalq PRN Reason Stop Dose Admin Lacosamide 100 mg/ Sodium 60 mls @ 120 mls/hr 09/07/24 12:00 09/07/24 15:48 Chloride IV Infused Q12H OTIS Infusion PFSH Acute 2 PFSH: Medical History C. difficile colitis Symptomatic cholelithiasis Status epilepticus Generalized seizure Developmental disorder Frontal lobe epilepsy Cellulitis of oral soft tissues Endotracheally intubated Status epilepticus Essential hypertension Generalized epilepsy Morbid obesity Hypertension Intellectual disability Peripheral vascular disease Venous stasis dermatitis Leukocytosis Seizure Surgical History History of laparoscopic cholecystectomy History of total colectomy August 2022 S/P vein stripping Family History Father Cancer Lung cancer Mother CAD (coronary artery disease) Other Diabetes Heart disease Hypertension Denies family history of Stroke Social History Smoking and tobacco/nicotine status: never used tobacco/nicotine Second hand smoke exposure: No Alcohol intake: never Substance/Drug Use: never Adopted: No Caregiver/support person: Yes Lives independently: No Household members: family Housing: House Marital status: Single Number of children: 0 service: No Current occupational status: disabled Do you think of yourself as: Straight/Heterosexual Current gender identity: Male Vitals/I&O/Wt Last Vital Signs Temp 99.0 F 09/07/24 11:47 Pulse 97 09/07/24 15:50 Resp 18 09/07/24 15:50 BP 154/70 09/07/24 15:50 Pulse Ox 100 09/07/24 15:50 O2 Del Method Mechanical Ventilation 09/07/24 15:50 FiO2 50 09/07/24 13:49 09/07/24 09/07/24 09/07/24 06:59 14:59 22:59 Intake Total 260 / 260 Balance 260 / 260 Weight last 48 hrs Weight 315 lb Physical Exam 2 Narrative: Vital signs stable The patient is intubated but now awake and follows commands. The patient is in no apparent distress. Pupils 3 mm round reactive to light and accommodation. Extraocular movements intact. Motor testing 5/5 bilaterally. Deep tendon reflex revealed plantar responses bilaterally. Sensory examination intact to touch. Throat could not be evaluated secondary to intubation tube. Lungs clear. Heart regular rhythm and rate. Extremities were negative for cyanosis Data 09/07/24 12:01 09/07/24 12:01 Micro: Microbiology 09/07/24 12:40 Gram Stain - Final Sputum - Endotracheal Tube Aspirate A&P Assessment and plan (1) Intractable epilepsy: Impression: 1. Intractable epilepsy with reports of recurrent seizures requiring intubation by EMS, patient currently stable and awake and following commands Plan: 1. Agree with extubation 2. Continue medications as prescribed by Dr. Forrester 3. Recommend obtaining trough Dilantin, lacosamide, Lamictal and Keppra levels on 09/08/2024 4. Continue seizure precautions per state law 5. Schedule patient will follow-up with Dr. Forrester after discharge 6. Seizure and fall precautions during this hospitalization 7. Ativan 1 mg to 2 mg IV every 6 hours as needed seizure lasting greater than 2 minutes or greater than 2 seizures within a 1 hour period of time. Qualifiers: Epilepsy type: partial idiopathic, localized onset Status epilepticus: with status epilepticus Qualified Code(s): G40.011 - Localization-related (focal) (partial) idiopathic epilepsy and epileptic syndromes with seizures of localized onset, intractable, with status epilepticus (2) Recurrent seizures: (3) Generalized epilepsy: (4) Intellectual disability: Consult Attestations 2 Medical Necessity Statement: The patient was evaluated by neurology for reports of recurrent seizures with prolonged postictal state as well as sedation on medications to assess for subclinical seizure activity and status epilepticus Coding Level of Care Code 49944 Diagnoses Partial idiopathic epilepsy with seizures of localized onset, intractable, with status epilepticus G40.011 Epilepsy type: partial idiopathic, localized onset Status epilepticus: with status epilepticus Recurrent seizures G40.909 Generalized epilepsy G40.309 Intellectual disability F79
--- NOTE | 2024-09-07 16:22 | P.HP_ITS ---
Providers/Chief Complaint 2 Admitting Physician: Edwin Garibay MD Primary Care Provider: Candi Latif, [facility] Chief Complaint: SEIZURE History of Present Illness Jaziel Willis is a 53 year old male with a past medical history of epilepsy, history of partial colectomy, history of C. difficile colitis, developmental disorder, morbid obesity, hypertension, peripheral vascular disease who presents [facility] for seizure. Currently patient is alert to person not to place, to time, he is intubated, on mechanical ventilation, he does easily arouse, can follow commands, but easily falls back asleep is on 45% FiO2, temperature 99, BP 140 54/70, pulse is 97, patient's family ember is at bedside. According to patient's family and ER provider, patient had several seizures today, there is concerns for protection of airway airway, so he was intubated, received ketamine, rocuronium, 5 mg of Versed. Patient's family ember at bedside tells me that he has been seizure-free since his last hospitalization, in December, no recent fevers, no chills, no cough, he lives at home, with family numbers, can ambulate a few feet, no recent falls, recent injuries, no cough complaints, he has been taking his medications as prescribed Review of Systems 2 General: Reports: ROS unobtainable due to endotracheal tube and ROS unobtainable due to mental status Medications/Allergies Home Medications Medication Instructions Recorded Confirmed Last Taken Type Compression hose #1 ea 09/21/20 09/07/24 Unknown Rx Compression hose 07/13/21 09/07/24 Unknown History Diabetic Shoes with 3 pairs of #1 ea 03/23/22 09/07/24 Unknown Rx inserts levothyroxine 25 mcg tablet 25 mcg PO DAILY #30 tabs 03/20/24 09/07/24 Unknown Rx (Levo-T) trazodone 100 mg tablet 100 mg PO BEDTIME #30 tabs 05/29/24 09/07/24 Unknown Rx lamotrigine 200 mg tablet 200 mg PO BID #60 tabs 07/20/24 09/07/24 Unknown Rx levetiracetam 1,000 mg tablet 2,000 mg (2 x 1,000 mg) PO BID 07/20/24 09/07/24 Unknown Rx #120 tabs phenytoin 50 mg chewable tablet 250 mg (5 x 50 mg) PO Q8H #450 tabs 07/20/24 09/07/24 Unknown Rx lacosamide 50 mg tablet 300 mg PO BID 09/07/24 09/07/24 Unknown History Allergies Allergy/AdvReac Type Severity Reaction Status Date / Time No Known Allergies Allergy Verified 07/20/24 15:04 PFSH Acute 2 PFSH: Medical History C. difficile colitis Symptomatic cholelithiasis Status epilepticus Generalized seizure Developmental disorder Frontal lobe epilepsy Cellulitis of oral soft tissues Endotracheally intubated Status epilepticus Essential hypertension Generalized epilepsy Morbid obesity Hypertension Intellectual disability Peripheral vascular disease Venous stasis dermatitis Leukocytosis Seizure Surgical History History of laparoscopic cholecystectomy History of total colectomy August 2022 S/P vein stripping Family History Father Cancer Lung cancer Mother CAD (coronary artery disease) Other Diabetes Heart disease Hypertension Denies family history of Stroke Social History Smoking and tobacco/nicotine status: never used tobacco/nicotine Second hand smoke exposure: No Alcohol intake: never Substance/Drug Use: never Adopted: No Caregiver/support person: Yes Lives independently: No Household members: family Housing: House Marital status: Single Number of children: 0 service: No Current occupational status: disabled Do you think of yourself as: Straight/Heterosexual Current gender identity: Male Vitals/I&O/Wt Last Vital Signs Temp 99.0 F 09/07/24 11:47 Pulse 97 09/07/24 15:50 Resp 18 09/07/24 15:50 BP 154/70 09/07/24 15:50 Pulse Ox 100 09/07/24 15:50 O2 Del Method Mechanical Ventilation 09/07/24 15:50 FiO2 50 09/07/24 13:49 09/07/24 09/07/24 09/07/24 06:59 14:59 22:59 Intake Total 260 / 260 Balance 260 / 260 Weight last 48 hrs Weight 142.882 kg Physical Exam 2 Const: COMMON NORMALS: no acute distress OTHER: Currently intubated, on mechanical ventilation, he is alert to person, he can squeeze my fingers bilaterally, he can wiggle his toes, but falls back asleep, easily, still postictal, pupils equal round reactive to light, can track at times, but difficult to follow commands HENMT: COMMON NORMALS: normocephalic HEAD & SCALP: normocephalic Neck/C-Spine: COMMON NORMALS: no JVD Resp: COMMON NORMALS: normal respiratory effort, No retractions and No use of accessory muscles OTHER: Wheezing and crackles in all lung knight Cardio: COMMON NORMALS: no JVD, regular rate, regular rhythm, S1 normal heart sound present and S2 normal heart sound present RATE: regular rate RHYTHM: regular rhythm HEART SOUNDS: S1 normal heart sound present and S2 normal heart sound present GI: COMMON NORMALS: Normal to inspection, nondistended, normoactive bowel sounds present, Soft to palpation and non-tender : OTHER: No CVA tenderness Extremity: COMMON NORMALS: no pedal edema Skin: NARRATIVE SKIN EXAM: Has bilateral onychomycosis bilateral toes lower extremity Sepsis: Is patient septic: Yes Focused sepsis exam performed: Yes F ocused sepsis exam: DP PT pulses diminished,, cap refill greater than 2 seconds, mild mottling lower extremity Date exam was performed: 09/07/24 Time exam was performed: 16:27 Data 09/07/24 12:01 09/07/24 12:01 Micro: Microbiology 09/07/24 12:40 Gram Stain - Final Sputum - Endotracheal Tube Aspirate A&P Assessment and plan (1) Acute encephalopathy: (2) Breakthrough seizure: (3) Sepsis: (4) Acute hypoxic respiratory failure: (5) UTI (urinary tract infection): Plan Acute encephalopathy -Multifactorial -Likely component of postictal state -Could be a component from sepsis, UTI, concerns for aspiration pneumonia -Neurochecks -Aspiration precautions -Nih stroke scale Breakthrough seizure, with history of epilepsy -Neurology has been consulted -Has received Vimpat in the emergency room -Has received Keppra in the emergency room -Continue home medications -Neurology has been consulted -Will be on fentanyl and propofol for sedation -Seizure precautions Acute hypoxic respiratory failure -Intubated for airway protection -Started for aspiration pneumonia -Continue intubation, mechanical ventilation -Follow-up sputum cultures, blood cultures -Monitor respiratory status closely -Fentanyl for sedation -Propofol for sedation -Daily spontaneous breathing trials, minimize tidal volume, minimize FiO2 -DuoNeb -CT chest ordered Concern for aspiration pneumonia -Continue Zosyn Urinary tract infection -Follow blood cultures -Urine culture - continue Zosyn -Follow CRP, Pro-Taiwo Sepsis -Sepsis features met, given elevated lactic acid, encephalopathy, elevated lactic acid, limited white blood cell count -Full code -Lovenox for DVT prophylaxis -protonix for gi prophylaxis Attestations 2 Medical Necessity Statement*: Patient requires hospitalization, inpatient, greater than 2 midnights, for acute hypoxic respiratory failure, concern for aspiration, UTI, sepsis, breakthrough seizure, postictal, acute encephalopathy Coding Level of Care Code Critical Care >/= 30 minutes Critical care time (in minutes): 45 The high probability of a clinically significant, sudden or life threatening deterioration, as referenced in this documentation, required my full and direct attention, intervention and personal management. The critical care time shown is in addition to time spent performing any reported separately billable procedures and includes the following: [x] Data and vital sign review and interpretation [x ] Patient assessment, examination and intervention [x] Medication orders and management [x] Patient/Family updates as able [x] Care Coordination and Documentation. Diagnoses Acute encephalopathy G93.40 Breakthrough seizure G40.919 Sepsis A41.9 Acute hypoxic respiratory failure J96.01 UTI (urinary tract infection) N39.0
[2024-09-07 16:23] LABS: ABG PH Result 7.41 (7.35-7.45); Alveolar-Arterial Oxygen Gradi 26.7 mmHg (5-10); Arterial Blood Gas Hematocrit 50.4 % (42-52); Base Excess ABG -0.1 mmol/L (-2.0-2.0); Blood Gas Allen Test Pos; Blood Gas Operator Identificat WALCI; Blood Gas Sample Site Radial, left; Blood Gas Sample Type Arterial; Blood Gas Tidal Volume 0.61; Carboxyhemoglobin 1.3 %THgb (0.4-20.1); HCO3 ABG 24.3 mmol/L (22-26); HGB O2 Sat 93.9 % (95-100); Ionized Calcium Level - ABG 1.2 mmol/L (1.1-1.4); Methemoglobin 0.5 % (0.4-1.5); Oxygen Device VENT; Oxygen Saturation ABG 95.6; PO2 FiO2 Ratio Arterial Blood 155; Potassium Level - ABG 5.6 mmol/L (3.5-5.0); Total Hemoglobin 16.5 g/dL (14-18)
--- NOTE | 2024-09-07 16:45 | CTR_ITS ---
PROCEDURE INFORMATION: Exam: CT Chest Without Contrast; Diagnostic Exam date and time: 09/07/2024 10:07 PM Age: 53 years old Clinical indication: Shortness of breath and wheezing; Additional info: Acute hypoxia TECHNIQUE: Imaging protocol: Diagnostic computed tomography of the chest without contrast. Radiation optimization: All CT scans at this facility use at least one of these dose optimization techniques: automated exposure control; mA and/or kV adjustment per patient size (includes targeted exams where dose is matched to clinical indication); or iterative reconstruction. COMPARISON: CT angio chest PE protcl [id number] 01/01/2024 12:23 PM RADIATION DOSE METRICS: Total DLP (mGy-cm): 753.4 FINDINGS: Tubes, catheters and devices: An enteric tube present with tip in the body of the stomach. An ET tube present with tip above the jim. Thyroid: Stable left multinodular thyroid gland. Lungs: Consolidative changes present in the right lower lobe. Patchy airspace disease present in the right upper lobe and right lower lobe. There is a component of volume loss in the right lower lobe airspace disease. Pleural spaces: Unremarkable. No pneumothorax. No pleural effusion. Heart: Unremarkable. No cardiomegaly. No pericardial effusion. Lymph nodes: Unremarkable. No enlarged lymph nodes. Vasculature: There is calcific plaque involving the thoracic aorta. No coronary artery calcification. No aortic aneurysm. Gallbladder and biliary ducts: The gallbladder is surgically absent. Bones/joints: Mild degenerative changes involve the spine. Soft tissues: Unremarkable. CT/CT chest [facility] [id number] IMPRESSION: 1. Multifocal airspace disease. There is consolidation in the right lower lobe with a component of volume loss. This finding may be related to mucous plugging causing atelectasis with suspected superimposed right lower lobe pneumonia. 2. Mild atherosclerosis.
--- NOTE | 2024-09-07 16:45 | US_ITS ---
WS: [id number] RENAL ULTRASOUND HISTORY: uti COMPARISON: 09/23/2022 TECHNIQUE: 2-D and color Doppler imaging of the kidney submitted. Right kidney: 13.4 cm x 6.8 cm x 6.0 cm. Cortex: 1.5 cm Normal echogenicity with no hydronephrosis or mass. Previously described cyst is not identified today . Left kidney: 13.0 cm x 4.1 cm x 5.4 cm. Cortex: 1.6 cm Normal echogenicity with no hydronephrosis or mass. Aorta: Normal. Urinary Bladder: Nondistended. Saenz catheter is noted. US/US renal BI* [id number] IMPRESSION: Normal renal ultrasound.
[2024-09-07] MEDS: pantoprazole 40 mg SDV IVP (17:01)
[2024-09-07] MEDS: enoxaparin 40 mg/0.4 mL Syringe SUBCUT (17:01)
[2024-09-07] MEDS: morphine 4 mg/mL SDV 1 mL 2 MG IVP (17:01)
[2024-09-07] MEDS: fentaNYL 1,000 MCG/100 ML BAG 2.5 MCG IV (17:20)
[2024-09-07] MEDS: propofol 1,000 MG/100 ML INJ 4.29 MG IV (17:20)
--- NOTE | 2024-09-07 18:33 | XRR_ITS ---
PROCEDURE INFORMATION: Exam: XR Chest Exam date and time: 09/07/2024 6:45 PM Age: 53 years old Clinical indication: Device placement; Ng tube; Additional info: Ng tube placement TECHNIQUE: Imaging protocol: Radiologic exam of the chest. Views: 1 view. COMPARISON: CR XR chest 1V portable [id number] 09/07/2024 12:01 PM FINDINGS: Tubes, catheters and devices: ET tube in stable position with tip at the thoracic inlet. New enteric tube with tip in the proximal stomach. Lungs: Unremarkable. No consolidation. Pleural spaces: Unremarkable. No pleural effusion. No pneumothorax. Heart/Mediastinum: Unremarkable. No cardiomegaly. Bones/joints: Unremarkable. XR/XR chest 1V portable [id number] IMPRESSION: New enteric tube with tip in the stomach. Otherwise, no change since reference study.
--- NOTE | 2024-09-07 18:51 | PC.NURSE ---
Patient arrived to ICU 10 at approximately 1645 via ER bed, Patent AOX4 on mechanical ventilation, restraints applied, sedation added, OG tube placed, SCD placed, skin assessment completed, colostomy in place with no leaking, Bilateral lower legs have discoloration and flaking skin, bilateral toes have skin flaking, no open areas noted at that time. No family found in waiting area, other admission assessments pending as documented.
[2024-09-07 19:14] LABS: C Reactive Protein 38.1 mg/L (0.0-4.9); Cholesterol 197 mg/dL (0-200); HDL Cholesterol 82 mg/dL (60-100); LDL Cholesterol Calculated 82 mg/dL (50-129); Triglycerides 165 mg/dL (0-150)
--- NOTE | 2024-09-07 19:17 | PC.NURSE ---
PO medication delay due to verification of OG tube placement.
[2024-09-07 19:18] LABS: Procalcitonin 0.05 ng/mL (0-0.5)
[2024-09-07 20:21] LABS: Adenovirus Not Detected (NOT DETECT); Chlamydia Pneumoniae Not Detected (NOT DETECT); Coronavirus 229E,HKU1,NL63,OC4 Not Detected (NOT DETECT); Human Metapneumovirus Not Detected (NOT DETECT); Human Rhinovirus/Enterovirus Not Detected (NOT DETECT); Influenza A Not Detected (NOT DETECT); Influenza A H1 Not Detected (NOT DETECT); Influenza A H1-2009 Not Detected (NOT DETECT); Influenza A H3 Not Detected (NOT DETECT); Influenza B Not Detected (NOT DETECT); Mycoplasma Pneumoniae Not Detected (NOT DETECT); Parainfluenza Virus Type 1 Not Detected (NOT DETECT); Parainfluenza Virus Type 2 Not Detected (NOT DETECT); Parainfluenza Virus Type 3 Not Detected (NOT DETECT); Parainfluenza Virus Type 4 Not Detected (NOT DETECT); Respiratory Syncytial Virus A Not Detected (NOT DETECT); Respiratory Syncytial Virus B Not Detected (NOT DETECT); SARS-COV-2 Not Detected (NOT DETECT)
[2024-09-07] MEDS: propofol 1,000 MG/100 ML INJ 34.29 MG IV (20:31)
[2024-09-07] MEDS: lacosamide 50 mg Tablet 300 MG PO (20:33)
[2024-09-07] MEDS: lamoTRIgine 100 mg Tablet 200 MG PO (20:34)
[2024-09-07] MEDS: levETIRAcetam 500 mg Tablet 2000 MG PO (20:37)
[2024-09-07] MEDS: PHENYTOIN 25 MG/ML 250 MG PO (20:41)
[2024-09-07] MEDS: trazodone 100 mg Tablet PO (20:42)
[2024-09-07] MEDS: propofol 1,000 MG/100 ML INJ 30.01 MG IV (23:25)
[2024-09-08] VITALS (74 sets, daily range): BP systolic 84–140; BP diastolic 53–95; PULSE 60–98; RESP 14–20; TEMP 37.1–38.1; O2SAT 92–100
[2024-09-08] MEDS: PHENYTOIN 25 MG/ML 250 MG PO ×3 (01:57→18:12)
[2024-09-08] MEDS: propofol 1,000 MG/100 ML INJ 17.15 MG IV (03:48)
[2024-09-08 05:14] LABS: ABG PCO2 44.1 mmHg (35-45); ABG PH Result 7.38 (7.35-7.45); Arterial Blood Gas Hematocrit 46.8 % (42-52); Base Excess ABG 0.6 mmol/L (-2.0-2.0); Blood Gas Operator Identificat JDB; Blood Gas Sample Site Brachial, right; Blood Gas Sample Type Arterial; HCO3 ABG 26.1 mmol/L (22-26); Oxygen Device VENT; PO2 ABG 87.2 mmHg (80.0-100.0); PO2 FiO2 Ratio Arterial Blood 218
[2024-09-08 05:15] LABS: Blood Gas Tidal Volume 0.55
[2024-09-08 05:32] LABS: Basophils # 0.1 10^3/uL (0.0-0.1); Basophils % 0.3 %; Eosinophils # 0.2 10^3/uL (0.0-0.8); Eosinophils % 0.8 %; Lymphocytes # 2.1 10^3/uL (0.8-4.8); Mean Corpuscular HGB Conc 33.2 g/dL (30-55); Mean Corpuscular Volume 99.3 fl (82-101); Mean Platelet Volume 9.1 fL (7.4-10.4); Monocytes # 2.3 10^3/uL (0.2-0.9); Monocytes % 8.8 %; Neutrophils # 21.32 10^3/uL (1.8-7.7); Neutrophils % 81.5 %; Nucleated Red Blood Cells % 0 %; Platelet Count 189 10^3/cmm (157-399); Red Blood Count 4.43 10^6/uL (3.85-5.65); Red Cell Distribution Width 14.6 % (12.1-15.1); White Blood Count 26.18 10^3/uL (3.29-11.43)
[2024-09-08 05:49] LABS: Alanine Aminotransferase 23 U/L (0-41); Alkaline Phosphatase 137 U/L (40-130); Blood Urea Nitrogen 11 mg/dL (6-20); Calcium 8.9 mg/dL (8.5-10.5); Carbon Dioxide 22 mmol/L (22-29); Chloride 99 mmol/L (98-107); Creatinine Clr Calc Pharmacy 191.8009; Globulin 2.2 g/dL (1.3-4.6); Glomerular Filtration Rate 118.4 mL/min (90-130); Glucose 117 mg/dL (65-115); Magnesium 2.3 mg/dL (1.7-2.3); Osmolality Calculated 280 mOsm/kg (285-295); Phosphorus 3.6 mg/dL (2.5-4.5); Sodium 135 mmol/L (136-145); Total Bilirubin 0.8 mg/dL (0.15-1.2); Total Protein 6.2 g/dL (6.6-8.7)
[2024-09-08 05:50] LABS: Lactic Sepsis W/Reflex 2.2 mmol/L (0.5-2.2)
[2024-09-08 05:52] LABS: Estmated Average Glucose 74; Hemoglobin A1C 4.2 % (4.0-6.0)
[2024-09-08 05:52] LABS: Anion Gap 17.9 (5-19); Aspartate Amino Transferase 29 U/L (0-40); Potassium 3.9 mmol/L (3.5-5.1)
[2024-09-08 06:00] LABS: Creatine Phosphokinase 55 U/L (39-308); NT Pro B Type Natriuretic Pept 210 pg/mL (0-125)
[2024-09-08 07:17] LABS: Reflex Lactate Order REFLEX LACTIC ORDERD
[2024-09-08] MEDS: ipratropium-albuterol 3 mL Neb INHALATION ×5 (08:20→23:26)
[2024-09-08] MEDS: acetylcysteine 200 mg/mL MDV 10 mL 100 MG INHALATION ×5 (08:20→23:33)
[2024-09-08] MEDS: sodium chloride 3.5% neb 4 mL Neb INHALATION ×2 (08:20→19:59)
[2024-09-08] MEDS: vancomycin 1,500 MG/300 ML PIGGYBACK 200 MG IV ×3 (08:55→18:20)
[2024-09-08] MEDS: piperacillin-tazobactam 4.5 GM in sodium chloride 0.9% (plus) 50 ML IV ×3 (08:55→23:01)
[2024-09-08] MEDS: lamoTRIgine 100 mg Tablet 200 MG PO ×2 (09:43→18:13)
[2024-09-08] MEDS: lacosamide 50 mg Tablet 300 MG PO ×2 (09:43→18:12)
[2024-09-08] MEDS: levETIRAcetam 500 mg Tablet 2000 MG PO ×2 (09:44→18:12)
[2024-09-08] MEDS: levothyroxine 25 mcg Tablet PO (09:45)
[2024-09-08] MEDS: propofol 1,000 MG/100 ML INJ 25.72 MG IV ×4 (09:56→22:22)
[2024-09-08] MEDS: fentaNYL 1,000 MCG/100 ML BAG 5 MCG IV (10:54)
--- NOTE | 2024-09-08 12:30 | PHA.VACGOAL ---
Vancomycin Goal - Goal Vancomycin Goal:: 15-20 mg/L Vancomycin Indication:: Other (SEPSIS) - Therapy Current therapy:: Pip/Tazo Day of therpy:: Day [1]of [] . Actual body weight (kg): 144.424 kg - Data Labs: WBC 26.18 10^3/uL (3.29-11.43) H 09/08/24 05:20 RBC 4.43 10^6/uL (3.85-5.65) 09/08/24 05:20 Hgb 14.60 g/dL (11.27-16.99) 09/08/24 05:20 Hct 44.0 % (37-53) 09/08/24 05:20 MCV 99.3 fl (82-101) 09/08/24 05:20 MCH 33.0 pg (27-33) 09/08/24 05:20 MCHC 33.2 g/dL (30-55) 09/08/24 05:20 RDW 14.6 % (12.1-15.1) 09/08/24 05:20 Sodium 135 mmol/L (136-145) L 09/08/24 05:12 Potassium 3.9 mmol/L (3.5-5.1) 09/08/24 05:12 Chloride 99 mmol/L (98-107) 09/08/24 05:12 Carbon Dioxide 22 mmol/L (22-29) 09/08/24 05:12 Anion Gap 17.9 (5-19) 09/08/24 05:12 BUN 11 mg/dL (6-20) 09/08/24 05:12 Creatinine 0.7 mg/dL (0.7-1.2) 09/08/24 05:12 GFR Calculation 118.4 mL/min (90-130) 09/08/24 05:12 Treatment plan:: new consult Regimen:: New start Vancomycin for sepsis. Prior vancomycin history found from 01/03/24. Trough of 9.1 mg/L obtained with dose of 2000 mg q12h. Renal function similar to this admission Scr 0.5-0.7 mg/dL. Load dose of 3000 mg ordered. Maintenance dose of 1500 mg q8h started based on prior vancomycin levels. Pharmacy will continue to monitor daily.
--- NOTE | 2024-09-08 16:11 | P.PN_ITS ---
Subjective 2 Subjective: Patient was seen this morning, currently intubated, on mechanical ventilation, he is on minimal sedation, can awaken, does track, pupils equal round reactive to light, can follow commands, is on 45% FiO2, has significant mucus secretions Vitals/I&O/Wt Last Vital Signs Temp 98.8 F 09/08/24 00:09 Pulse 95 09/08/24 15:54 Resp 18 09/08/24 15:46 BP 126/72 09/08/24 06:00 Pulse Ox 97 09/08/24 15:46 O2 Del Method Mechanical Ventilation 09/08/24 15:43 FiO2 40 09/08/24 15:46 09/08/24 09/08/24 09/08/24 06:59 14:59 22:59 Intake Total 339.416 / 848.833 196.775 / 196.775 Output Total 800 / 800 Balance -460.584 / 48.833 196.775 / 196.775 Weight last 48 hrs Weight 144.424 kg Weight 146.057 kg Weight 142.882 kg Physical Exam 2 Const: COMMON NORMALS: no acute distress OTHER: Remains intubated, sedated on mechanical ventilation, does awaken, does track, pupils equal round reactive to light, Eye: COMMON NORMALS: Equal, round and reactive pupils present PUPIL: Yes Equal, round and reactive pupils present Resp: COMMON NORMALS: normal respiratory effort, No retractions and No use of accessory muscles AUSCULTATION: crackles and wheezes Cardio: COMMON NORMALS: regular rate, regular rhythm, S1 normal heart sound present and S2 normal heart sound present RATE: regular rate RHYTHM: r egular rhythm HEART SOUNDS: S1 normal heart sound present and S2 normal heart sound present GI: COMMON NORMALS: Normal to inspection, nondistended, normoactive bowel sounds present and non-tender Extremity: COMMON NORMALS: no pedal edema Urinary Catheter Management: Saenz: Cath Placed During This Visit: yes Reason for Continuing Indwelling Catheter: Accurate Measurement of Urinary Output in Critically Ill Patients Urinary Catheter Date of Insertion: 09/07/23 Sepsis: Is patient septic: Yes Focused sepsis exam performed: Yes F ocused sepsis exam: DP PT pulses palpable, cap refill less than 2 seconds Date exam was performed: 09/08/24 Time exam was performed: 09:00 Data 09/08/24 05:20 09/08/24 05:12 Micro: Microbiology 09/07/24 12:40 Gram Stain - Final Sputum - Endotracheal Tube Aspirate Sputum Culture - Preliminary 09/07/24 14:19 Urine Culture - Preliminary Urine,Clean Catch Gram Negative Rods 09/08/24 05:20 Blood Culture - Preliminary Blood SPECIMEN COLLECTED 09/07/24 13:55 Blood Culture - Preliminary Blood SPECIMEN COLLECTED A&P Assessment and plan (1) Acute encephalopathy: (2) Breakthrough seizure: (3) Sepsis: (4) Acute hypoxic respiratory failure: (5) UTI (urinary tract infection): Plan Acute encephalopathy -Multifactorial -Likely component of postictal state -Could be a component from sepsis, UTI, concerns for aspiration pneumonia -Neurochecks -Aspiration precautions -Nih stroke scale Breakthrough seizure, with history of epilepsy -Neurology has been consulted -Has received Vimpat in the emergency room -Has received Keppra in the emergency room -Continue home medications -Neurology has been consulted -Will be on fentanyl and propofol for sedation -Seizure precautions Acute hypoxic respiratory failure -Intubated for airway protection -Now with concerns for aspiration event, aspiration pneumonia -Continues to have thick mucous secretions, highly suspicious for aspiration pneumonia -Continue intubation, mechanical ventilation -Follow-up sputum cultures, blood cultures -Monitor respiratory status closely -Fentanyl for sedation -Propofol for sedation -Daily spontaneous breathing trials, minimize tidal volume, minimize FiO2 -DuoNeb Aspiration event CT chest CT/CT chest wo con [id number] IMPRESSION: 1. Multifocal airspace disease. There is consolidation in the right lower lobe with a component of volume loss. This finding may be related to mucous plugging causing atelectasis with suspected superimposed right lower lobe pneumonia. 2. Mild atherosclerosis. -Chest vest, Mucomyst, hypertonic saline, aggressive pulmonary toilet Concern for aspiration pneumonia -Continue Zosyn Urinary tract infection -Follow blood cultures -Urine culture - continue Zosyn -Follow CRP, Pro-Taiwo Sepsis -Sepsis features met, given elevated lactic acid, encephalopathy, elevated lactic acid, limited white blood cell count -Full code -Lovenox for DVT prophylaxis -protonix for gi prophylaxis Attestations 2 Medical Necessity Statement*: Patient requires hospitalization, for aspiration pneumonia, aspiration event, acute encephalopathy, breakthrough seizures, urinary tract infection Coding Level of Care Code Critical Care >/= 30 minutes Critical care time (in minutes): 45 The high probability of a clinically significant, sudden or life threatening deterioration, as referenced in this documentation, required my full and direct attention, intervention and personal management. The critical care time shown is in addition to time spent performing any reported separately billable procedures and includes the following: [x] Data and vital sign review and interpretation [x ] Patient assessment, examination and intervention [x] Medication orders and management [x] Patient/Family updates as able [x] Care Coordination and Documentation. Diagnoses Acute encephalopathy G93.40 Breakthrough seizure G40.919 Sepsis A41.9 Acute hypoxic respiratory failure J96.01 UTI (urinary tract infection) N39.0
[2024-09-08] MEDS: enoxaparin 40 mg/0.4 mL Syringe SUBCUT (18:11)
[2024-09-08] MEDS: pantoprazole 40 mg SDV IVP (18:12)
--- NOTE | 2024-09-08 19:25 | PC.NURSE ---
Shift summary: Pt remained resting in bed throughout shift. He remains intubated and slightly sedated. FIO2 at 30%. Fentanyl at 50 mcg/hr and propofol at 30 mcg/kg/hr. His WBCs increased today. He was started on Zosyn and Vancomycin, IV. HIs colostomy patent and draining. He had 750 of urinary output. His mother , Tiffanie, called for updates twice this shift. No complaints of pain .
[2024-09-08] MEDS: trazodone 100 mg Tablet PO (21:33)
[2024-09-08] MEDS: chlorhexidine gluconate 4% Btl 118 mL 1 APPLIC TOPICAL (23:03)
[2024-09-09] VITALS (62 sets, daily range): BP systolic 89–146; BP diastolic 39–83; PULSE 67–97; RESP 14–28; TEMP 36.9–38.2; O2SAT 89–100
[2024-09-09] MEDS: vancomycin 1,500 MG/300 ML PIGGYBACK 200 MG IV ×3 (01:25→21:13)
[2024-09-09] MEDS: PHENYTOIN 25 MG/ML 250 MG PO ×3 (01:27→18:19)
[2024-09-09] MEDS: propofol 1,000 MG/100 ML INJ 30.01 MG IV (02:30)
[2024-09-09] MEDS: acetylcysteine 200 mg/mL MDV 10 mL 100 MG INHALATION ×3 (03:10→11:48)
[2024-09-09] MEDS: ipratropium-albuterol 3 mL Neb INHALATION ×4 (03:10→15:07)
[2024-09-09 04:43] LABS: ABG PCO2 39.1 mmHg (35-45); ABG PH Result 7.39 (7.35-7.45); Arterial Blood Gas Hematocrit 43.1 % (42-52); Base Excess ABG -0.9 mmol/L (-2.0-2.0); Blood Gas Operator Identificat JDB; Blood Gas Sample Site Brachial, right; Blood Gas Sample Type Arterial; Blood Gas Tidal Volume 0.55; HCO3 ABG 23.9 mmol/L (22-26); Oxygen Device VENT; PO2 ABG 78.9 mmHg (80.0-100.0); PO2 FiO2 Ratio Arterial Blood 197
[2024-09-09] MEDS: fentaNYL 1,000 MCG/100 ML BAG 5 MCG IV (05:28)
[2024-09-09] MEDS: propofol 1,000 MG/100 ML INJ 21.43 MG IV (05:29)
[2024-09-09] MEDS: piperacillin-tazobactam 4.5 GM in sodium chloride 0.9% (plus) 50 ML IV ×3 (06:20→22:46)
--- NOTE | 2024-09-09 07:00 | XRR_ITS ---
PROCEDURE INFORMATION: Exam: XR Chest Exam date and time: 09/09/2024 8:51 AM Age: 53 years old Clinical indication: Shortness of breath; Additional info: SOB TECHNIQUE: Imaging protocol: Radiologic exam of the chest. Views: 1 view. COMPARISON: CT chest con [id number] 09/07/2024 10:07 PM FINDINGS: Tubes, catheters and devices: The endotracheal tube is in good position at the head of the clavicles. There is a nasogastric tube in good position within the stomach. Lungs: There are persistent air bronchograms in the right lower lobe suggesting persistent right lower lobe pneumonia and/or atelectasis. The left lung appears clear. Pleural spaces: Unremarkable. No pleural effusion. No pneumothorax. Heart/Mediastinum: Unremarkable. No cardiomegaly. Bones/joints: Unremarkable. XR/XR chest 1V portable [id number] IMPRESSION: Persistent right lower lobe air bronchograms concerning for persistent pneumonia and/or atelectasis.
[2024-09-09] MEDS: sodium chloride 3.5% neb 4 mL Neb INHALATION (07:54)
[2024-09-09] MEDS: levETIRAcetam 500 mg Tablet 2000 MG PO ×2 (08:53→18:19)
[2024-09-09] MEDS: levothyroxine 25 mcg Tablet PO (08:53)
[2024-09-09] MEDS: lacosamide 50 mg Tablet 300 MG PO ×2 (08:53→18:19)
[2024-09-09] MEDS: lamoTRIgine 100 mg Tablet 200 MG PO ×2 (08:53→18:19)
--- NOTE | 2024-09-09 11:11 | USR_ITS ---
PROCEDURE INFORMATION: Exam: US Duplex Bilateral Lower Extremity Arteries Exam date and time: 09/09/2024 1:37 PM Age: 53 years old Clinical indication: Other: Diminished pulses rle TECHNIQUE: Imaging protocol: Real-time ultrasound scan of the arteries of the bilateral lower extremities with 2-D muniz scale, color Doppler flow and spectral waveform analysis. Images documented and saved. COMPARISON: US soft tissue/extremity [id number] 02/27/2021 8:47 AM FINDINGS: Right common femoral artery: No occlusion or significant stenosis. Normal waveform. Right superficial femoral artery: No occlusion or significant stenosis. Normal waveform. Right popliteal artery: No occlusion or significant stenosis. Normal waveform. Right calf/foot arteries: No occlusion or significant stenosis in the visualized arteries. Normal waveforms. Dorsalis pedis artery is patent. Left common femoral artery: No occlusion or significant stenosis. Normal waveform. Left superficial femoral artery: No occlusion or significant stenosis. Normal waveform. Left popliteal artery: No occlusion or significant stenosis. Normal waveform. Left calf/foot arteries: Dorsalis pedis artery is patent. The left dorsalis pedis waveform is normal. There is a low amplitude monophasic waveform in the left posterior tibial artery suggesting isolated left posterior tibial artery disease. US/CV arterial duplex [facility] [id number] IMPRESSION: 1. Normal right lower extremity arterial ultrasound. 2. Suspected isolated distal left posterior tibial artery disease as there is a monophasic waveform present. Otherwise, the left lower extremity arterial ultrasound is unremarkable. 3. If clinical concern persists a CT angiogram of the lower extremities can be performed.
[2024-09-09 12:05] LABS: Basophils # 0.1 10^3/uL (0.0-0.1); Basophils % 0.3 %; Eosinophils % 0.1 %; Hematocrit 42.6 % (37-53); Lymphocytes # 0.8 10^3/uL (0.8-4.8); Lymphocytes % 2.4 %; Mean Corpuscular HGB Conc 34.3 g/dL (30-55); Mean Corpuscular Hemoglobin 32.8 pg (27-33); Mean Corpuscular Volume 95.7 fl (82-101); Mean Platelet Volume 9.3 fL (7.4-10.4); Monocytes # 2.3 10^3/uL (0.2-0.9); Monocytes % 7.1 %; Neutrophils # 28.41 10^3/uL (1.8-7.7); Neutrophils % 88.8 %; Nucleated Red Blood Cells % 0 %; Platelet Count 174 10^3/cmm (157-399); Red Blood Count 4.45 10^6/uL (3.85-5.65); Red Cell Distribution Width 14.3 % (12.1-15.1)
[2024-09-09 12:36] LABS: NT Pro B Type Natriuretic Pept 161 pg/mL (0-125); Procalcitonin 0.28 ng/mL (0-0.5)
[2024-09-09 12:47] LABS: Alanine Aminotransferase 16 U/L (0-41); Albumin Level 3.7 g/dL (3.5-5.2); Alkaline Phosphatase 117 U/L (40-130); Aspartate Amino Transferase 21 U/L (0-40); Blood Urea Nitrogen 13 mg/dL (6-20); C Reactive Protein 349.2 mg/L (0.0-4.9); Calcium 8.9 mg/dL (8.5-10.5); Carbon Dioxide 22 mmol/L (22-29); Chloride 95 mmol/L (98-107); Creatine Phosphokinase 192 U/L (39-308); Creatinine Clr Calc Pharmacy 191.6423; Globulin 3.1 g/dL (1.3-4.6); Glomerular Filtration Rate 118.4 mL/min (90-130); Glucose 154 mg/dL (65-115); Magnesium 2.2 mg/dL (1.7-2.3); Osmolality Calculated 285 mOsm/kg (285-295); Phosphorus 2.6 mg/dL (2.5-4.5); Sodium 136 mmol/L (136-145); Total Bilirubin 1.3 mg/dL (0.15-1.2); Total Protein 6.8 g/dL (6.6-8.7)
[2024-09-09 12:48] LABS: Anion Gap 22.6 (5-19); Potassium 3.6 mmol/L (3.5-5.1)
[2024-09-09 13:42] LABS: White Blood Count 31.95 10^3/uL (3.29-11.43)
[2024-09-09] MEDS: FUROsemide 10 mg/mL SDV 4mL 40 MG IVP (14:31)
--- NOTE | 2024-09-09 14:42 | PC.NURSE ---
Fentanyl and Propofol gtt wasted. Witnessed by By YUKI Terry.
[2024-09-09] MEDS: vancomycin 100 mg/1 mL Oral Syringe 125 MG PO (14:49)
--- NOTE | 2024-09-09 15:02 | PC.NURSE ---
1425: Pt extubated and OG removed. 2lpm/NC applied. Pt tolerating very well. He was able to swallow his oral liquid Vancomycin.
[2024-09-09 15:45] LABS: Reflex Lactate Order REFLEX LACTIC ORDERD
--- NOTE | 2024-09-09 15:47 | P.PN_ITS ---
Subjective 2 Subjective: - Patient was examined multiple times th roughout the morning and into the afternoon -Early in the morning he was seen, he is on minimal sedation he is following commands, able to squeeze my fingers bilaterally, able to track me, on 35% FiO2, Tmax 100.5, respiratory secretions have decreased, ? Will give 1 dose IV Lasix ? Seen again plan on spontaneous breathing trial ? Patient is tolerating spontaneous breathing trial well, no episodes of desaturation no tachypnea, no tachycardia, plans on extubation, following all commands, -patient was extubated to nasal cannula Vitals/I&O/Wt Last Vital Signs Temp 100.4 F H 09/09/24 04:12 Pulse 90 09/09/24 15:12 Resp 20 H 09/09/24 15:05 BP 110/83 09/09/24 06:00 Pulse Ox 96 09/09/24 15:05 O2 Del Method Nasal Cannula 09/09/24 15:05 O2 Flow Rate 1 09/09/24 15:05 FiO2 30 09/09/24 14:16 09/09/24 09/09/24 09/09/24 06:59 14:59 22:59 Intake Total 614.668 / 2301.526 567.593 / 567.593 Output Total 700 / 1450 155 / 155 180 / 335 Balance -85.332 / 851.526 412.593 / 412.593 -180 / 232.593 Weight last 48 hrs Weight 144.197 kg Weight 144.424 kg Weight 146.057 kg Physical Exam 2 Const: COMMON NORMALS: no acute distress and patient oriented x3 HENMT: COMMON NORMALS: normocephalic HEAD & SCALP: normocephalic Neck/C-Spine: COMMON NORMALS: no JVD Resp: COMMON NORMALS: normal respiratory effort, No retractions, No use of accessory muscles and clear to auscultation bilaterally AUSCULTATION: clear to auscultation bilaterally Cardio: COMMON NORMALS: no JVD, regular rate, regular rhythm, S1 normal heart sound present and S2 normal heart sound present RATE: regular rate RHYTHM: regular rhythm HEART SOUNDS: S1 normal heart sound present and S2 normal heart sound present GI: COMMON NORMALS: Normal to inspection, nondistended, normoactive bowel sounds present and non-tender OTHER: Colostomy bag in place Extremity: NARRATIVE EXTREMITY EXAM: 1+ edema Neuro: COMMON NORMALS: patient oriented x3 Psych: COMMON NORMALS: mental status grossly normal Urinary Catheter Management: Saenz: Cath Placed During This Visit: yes Reason for Continuing Indwelling Catheter: Accurate Measurement of Urinary Output in Critically Ill Patients Urinary Catheter Date of Insertion: 09/07/23 Data 09/09/24 11:45 09/09/24 11:45 Micro: Microbiology 09/07/24 14:19 Urine Culture - Final Urine,Clean Catch Escherichia coli esbl 09/07/24 12:40 Gram Stain - Final Sputum - Endotracheal Tube Aspirate Sputum Culture - Final 09/08/24 05:20 Blood Culture - Preliminary Blood NEGATIVE TO DATE 09/07/24 13:55 Blood Culture - Preliminary Blood NEGATIVE TO DATE A&P Assessment and plan (1) Acute encephalopathy: (2) Breakthrough seizure: (3) Sepsis: (4) Acute hypoxic respiratory failure: (5) UTI (urinary tract infection): (6) UTI due to extended-spectrum beta lactamase (ESBL) producing Escherichia coli: Plan Acute encephalopathy, resolving following all commands -Multifactorial -Likely component of postictal state -Could be a component from sepsis, UTI, concerns for aspiration pneumonia -Neurochecks -Aspiration precautions -Nih stroke scale Breakthrough seizure, with history of epilepsy -Neurology has been consulted -Has received Vimpat in the emergency room -Has received Keppra in the emergency room -Continue home medications -Seizure precautions Acute hypoxic respiratory failure -Intubated for airway protection -Now with concerns for aspiration event, aspiration pneumonia -Continues to have thick mucous secretions, highly suspicious for aspiration pneumonia, resolving -Extubated to nasal cannula -Follow-up sputum cultures, blood cultures -Monitor respiratory status closely -DuoNeb Aspiration event CT chest CT/CT chest wo con [id number] IMPRESSION: 1. Multifocal airspace disease. There is consolidation in the right lower lobe with a component of volume loss. This finding may be related to mucous plugging causing atelectasis with suspected superimposed right lower lobe pneumonia. 2. Mild atherosclerosis. -Chest vest, Mucomyst, hypertonic saline, aggressive pulmonary toilet Concern for aspiration pneumonia -Continue Zosyn Urinary tract infection, ESBL E. coli UTI -Follow blood cultures -Urine culture - continue Zosyn -We will avoid meropenem due to risk of lowering the seizure threshold -Follow CRP, Pro-Taiwo Sepsis -Sepsis features met, given elevated lactic acid, encephalopathy, elevated lactic acid, limited white blood cell count -Full code -Lovenox for DVT prophylaxis -protonix for gi prophylaxis Colostomy bag in place Plan for today, patient was intubated, sedation was weaned, spontaneous breathing trial, extubated to nasal cannula, leukocytosis has increased to 30,000, given his history of C. difficile start p.o. vancomycin Attestations 2 Medical Necessity Statement*: Patient requires hospitalization for breakthrough seizure, aspiration pneumonia, ESBL E. coli UTI, leukocytosis, sepsis, respiratory failure Coding Level of Care Code Critical Care >/= 30 minutes Critical care time (in minutes): 45 The high probability of a clinically significant, sudden or life threatening deterioration, as referenced in this documentation, required my full and direct attention, intervention and personal management. The critical care time shown is in addition to time spent performing any reported separately billable procedures and includes the following: [x] Data and vital sign review and interpretation [x ] Patient assessment, examination and intervention [x] Medication orders and management [x] Patient/Family updates as able [x] Care Coordination and Documentation. Diagnoses Acute encephalopathy G93.40 Breakthrough seizure G40.919 Sepsis A41.9 Acute hypoxic respiratory failure J96.01 UTI (urinary tract infection) N39.0 UTI due to extended-spectrum beta lactamase (ESBL) producing Escherichia coli N39.0; B96.29; Z16.12
[2024-09-09 15:59] LABS: C.Diff PCR (Lab) NEGATIVE (Negative)
--- NOTE | 2024-09-09 16:50 | PC.NURSE ---
called Tiffanie, Pt's mother, updated her on pt extubation, vancomycin started orally.
[2024-09-09 17:51] LABS: Lactic Acid level (Lactate) 2.5 mmol/L (0.5-2.2)
[2024-09-09] MEDS: pantoprazole 40 mg SDV IVP (18:17)
[2024-09-09] MEDS: enoxaparin 40 mg/0.4 mL Syringe SUBCUT (18:17)
--- NOTE | 2024-09-09 18:33 | SUR.PREOP ---
PRE PICC NOTE Discussed with Dr Garibay continued need for PICC after nursing discussion. Patient condition markedly improved today. He is no longer requiring intubation and the nursing staff fells the indication for PICC may no longer be necessary which prompted the call. Dr Garibay states that he agrees given his rapid turn around and PICC may not be necessary. I suggested possibility of Midline placement given his limited access points (reported by axle turner and lab staff). Dr Garibay decided against any line placement at this time. States he will reassess the patient in the morning. He feels his condition will continue to improve, but if he needs a line he will re order it then. Orders noted.
[2024-09-09 19:14] LABS: Vancomycin Trough 15.5 ug/mL (10-15)
--- NOTE | 2024-09-09 19:18 | PC.NURSE ---
Vancomycin: Will be started late, waiting for vanc trough to administer.
--- NOTE | 2024-09-09 19:45 | PC.NURSE ---
Addendum entered by Virginia Vaca RN 09/10/24 20:14: He was extubated to 2lpm/NC. He was weaned off to room air by end of shift. Original Note: Shift summary: Pt rested in bed throughout the shift. Sedation; Propofol and Fentanyl , stopped around 0900. Spontaneous breathing trail passed. Pt extbuated and OG removed this afternoon. Pt smiling and cooperative throughout shift, as per his usual. Sinus rhythm noted on monitor. VSS. At end of shift he had a temp of 100.7. Pt able to pass bedside swallow test. He was able to swallow his evening seizure medications without difficulty. Colostomy intact and patent, emptied pouch twice this sift. He had 950 ml of urine output. He hs shook his head no to pain throughout the shift.
[2024-09-09] MEDS: trazodone 100 mg Tablet PO (21:14)
--- NOTE | 2024-09-09 22:01 | PC.NURSE ---
Assessment: 'No Speech' marked on orientation, Jaziel communicated via nodding and smiling but would not talk to this RN. Does follow commands. Nodded head yes when asked if he was tired.
[2024-09-10] VITALS (29 sets, daily range): BP systolic 98–156; BP diastolic 53–81; PULSE 63–73; RESP 15–29; TEMP 36.4–37.2; O2SAT 90–97
[2024-09-10] MEDS: chlorhexidine gluconate 4% Btl 118 mL 1 APPLIC TOPICAL (02:43)
[2024-09-10] MEDS: PHENYTOIN 25 MG/ML 250 MG PO ×3 (02:47→18:36)
[2024-09-10] MEDS: vancomycin 1,500 MG/300 ML PIGGYBACK 200 MG IV ×3 (02:55→18:27)
[2024-09-10 05:35] LABS: Basophils # 0.1 10^3/uL (0.0-0.1); Basophils % 0.3 %; Eosinophils # 0.2 10^3/uL (0.0-0.8); Eosinophils % 0.9 %; Hematocrit 38.2 % (37-53); Lymphocytes # 1.7 10^3/uL (0.8-4.8); Lymphocytes % 6.6 %; Mean Corpuscular HGB Conc 33.5 g/dL (30-55); Mean Corpuscular Hemoglobin 33.4 pg (27-33); Mean Corpuscular Volume 99.7 fl (82-101); Mean Platelet Volume 9.9 fL (7.4-10.4); Monocytes # 2.1 10^3/uL (0.2-0.9); Neutrophils # 21.55 10^3/uL (1.8-7.7); Neutrophils % 83.3 %; Nucleated Red Blood Cells % 0 %; Platelet Count 153 10^3/cmm (157-399); Red Blood Count 3.83 10^6/uL (3.85-5.65); Red Cell Distribution Width 14.1 % (12.1-15.1); White Blood Count 25.86 10^3/uL (3.29-11.43)
[2024-09-10 05:59] LABS: Alanine Aminotransferase 13 U/L (0-41); Albumin Level 3.2 g/dL (3.5-5.2); Alkaline Phosphatase 110 U/L (40-130); Aspartate Amino Transferase 18 U/L (0-40); Blood Urea Nitrogen 15 mg/dL (6-20); Carbon Dioxide 24 mmol/L (22-29); Chloride 99 mmol/L (98-107); Creatinine Clr Calc Pharmacy 191.6423; Globulin 3.2 g/dL (1.3-4.6); Glomerular Filtration Rate 118.4 mL/min (90-130); Glucose 107 mg/dL (65-115); Magnesium 2.4 mg/dL (1.7-2.3); Osmolality Calculated 283 mOsm/kg (285-295); Phosphorus 1.7 mg/dL (2.5-4.5); Sodium 136 mmol/L (136-145); Total Protein 6.4 g/dL (6.6-8.7)
[2024-09-10 06:00] LABS: Lactate (Lactic Acid level) 1.5 mmol/L (0.5-2.2)
[2024-09-10 06:06] LABS: NT Pro B Type Natriuretic Pept 192 pg/mL (0-125); Procalcitonin 0.27 ng/mL (0-0.5)
[2024-09-10] MEDS: piperacillin-tazobactam 4.5 GM in sodium chloride 0.9% (plus) 50 ML IV ×3 (06:13→22:34)
[2024-09-10 06:17] LABS: C Reactive Protein 394.9 mg/L (0.0-4.9)
[2024-09-10 06:27] LABS: Creatine Phosphokinase 178 U/L (39-308)
[2024-09-10] MEDS: levETIRAcetam 500 mg Tablet 2000 MG PO ×2 (09:44→18:28)
[2024-09-10] MEDS: lacosamide 50 mg Tablet 300 MG PO ×2 (09:44→18:28)
[2024-09-10] MEDS: levothyroxine 25 mcg Tablet PO (09:44)
[2024-09-10] MEDS: lamoTRIgine 100 mg Tablet 200 MG PO ×2 (09:44→18:28)
[2024-09-10] MEDS: potassium phosphate (mEq K) 40 MEQ in sodium chloride 0.9% (100 ml) 100 ML 27.25 MEQ IV (11:51)
[2024-09-10] MEDS: ondansetron 2 mg/ML SDV 2 mL 4 MG IVP (12:30)
--- NOTE | 2024-09-10 16:17 | PC.NURSE ---
1315: Pt sitting in recliner beside the bed. Pt attempted to scoot forward in chair and push to get up. This nurse assisting him. He was not able to fully push up, this nurse asked him to sit back down. Pt sat on edge of chair, had a blanket in chair, started sliding, this nurse held his arm and upper body assisted his slide to the floor. He tried to push up and not sit on floor, this nurse told him it was ok go ahead and slide down there ( as I knew I would not be able to lift him enough to stay in chair). He slid to floor him bootom on floor and his back leaned against recliner. Pt denied any pains. Notified BJ charge nurse. Then maid housekeeper, Mayela, notified and asked to bring hover lift mats. Security notified for lifting assistance. Pt stated his back was uncomfortable as he was slouched against recliner. He was able to sit up so this nurse could palce pillows on floor then he reclined all the way back. He nodded his head yes to this being more comfortable. 1330: Security x 2 ( Santana and ?) , garbage collection supervisor and another nurse arrived with Hover mats. Prevnar mat rolled under patient the hover mats place. Hover mats and Prevnar mat inflated to level of bed pt then moved to bed. ( Hover mats were not staying inflated appropriately, but enough to accomplish moving pt.) Pt smiling. Pt nodded his head yes to being comfortable. He nodded is head no to pain. 1340: Vital signs obtains. VSS. 1344: Dr Garibay notified of event. NO further orders necessary. 1520: Tiffanie, pt's mother, notified of event.
--- NOTE | 2024-09-10 16:36 | P.PN_ITS ---
Subjective 2 Subjective: Jaziel was seen this morning, he is alert to person, to place, not to time he follows all commands, no fevers, chills, no cough, no specific complaints he tells me that he is hungry Vitals/I&O/Wt Last Vital Signs Temp 97.6 F 09/10/24 13:45 Pulse 67 09/10/24 16:00 Resp 18 09/10/24 16:00 BP 128/73 09/10/24 16:00 Pulse Ox 95 09/10/24 16:00 O2 Del Method Room Air 09/10/24 16:00 O2 Flow Rate 2 09/10/24 00:30 FiO2 30 09/09/24 14:30 09/10/24 09/10/24 09/10/24 06:59 14:59 22:59 Intake Total 350 / 1517.593 770 / 770 Output Total 1275 / 2560 910 / 910 Balance -925 / -1042.407 -140 / -140 Weight last 48 hrs Weight 141.203 kg Weight 144.197 kg Physical Exam 2 Const: COMMON NORMALS: no acute distress and patient oriented x3 Resp: COMMON NORMALS: normal respiratory effort, No retractions, No use of accessory muscles and clear to auscultation bilaterally AUSCULTATION: clear to auscultation bilaterally Cardio: COMMON NORMALS: regular rate, regular rhythm, S1 normal heart sound present and S2 normal heart sound present RATE: regular rate RHYTHM: r egular rhythm HEART SOUNDS: S1 normal heart sound present and S2 normal heart sound present GI: COMMON NORMALS: Normal to inspection, nondistended, normoactive bowel sounds present and non-tender Extremity: COMMON NORMALS: no pedal edema Neuro: COMMON NORMALS: patient oriented x3 Psych: COMMON NORMALS: mental status grossly normal Urinary Catheter Management: Saenz: Cath Placed During This Visit: yes Reason for Continuing Indwelling Catheter: Accurate Measurement of Urinary Output in Critically Ill Patients Urinary Catheter Date of Insertion: 09/07/23 Data 09/10/24 04:22 09/10/24 04:22 Micro: Microbiology 09/07/24 14:19 Urine Culture - Final Urine,Clean Catch Escherichia coli esbl 09/07/24 12:40 Gram Stain - Final Sputum - Endotracheal Tube Aspirate Sputum Culture - Final A&P Assessment and plan (1) Acute encephalopathy: (2) Breakthrough seizure: (3) Sepsis: (4) Acute hypoxic respiratory failure: (5) UTI (urinary tract infection): (6) UTI due to extended-spectrum beta lactamase (ESBL) producing Escherichia coli: Plan Acute encephalopathy, resolving following all commands -Multifactorial -Likely component of postictal state -Could be a component from sepsis, UTI, concerns for aspiration pneumonia -Neurochecks -Aspiration precautions -Nih stroke scale Breakthrough seizure, with history of epilepsy -Neurology has been consulted -Has received Vimpat in the emergency room -Has received Keppra in the emergency room -Continue home medications -Seizure precautions Acute hypoxic respiratory failure -Intubated for airway protection -Now with concerns for aspiration event, aspiration pneumonia -Continues to have thick mucous secretions, highly suspicious for aspiration pneumonia, resolving -Extubated to nasal cannula -Follow-up sputum cultures, blood cultures -Monitor respiratory status closely -DuoNeb Aspiration event CT chest CT/CT chest wo con [id number] IMPRESSION: 1. Multifocal airspace disease. There is consolidation in the right lower lobe with a component of volume loss. This finding may be related to mucous plugging causing atelectasis with suspected superimposed right lower lobe pneumonia. 2. Mild atherosclerosis. -Chest vest, Mucomyst, hypertonic saline, aggressive pulmonary toilet -Currently on dysphagia level 6 diet, moderately thickened Concern for aspiration pneumonia -Continue Zosyn Urinary tract infection, ESBL E. coli UTI -Follow blood cultures -Urine culture - continue Zosyn -We will avoid meropenem due to risk of lowering the seizure threshold for now, but will likely need Invanz on discharge -Follow CRP, Pro-Taiwo Sepsis, resolving -Sepsis features met, given elevated lactic acid, encephalopathy, elevated lactic acid, limited white blood cell count Invanz on discharge -Full code -Lovenox for DVT prophylaxis -protonix for gi prophylaxis Colostomy bag in place Plan for today, PT OT, d speech therapy eval, continue IV antibiotics, monitor respiratory status, 1 dose IV Lasix Attestations 2 Medical Necessity Statement*: Patient requires hospitalization for ESBL E. coli UTI, aspiration pneumonia, breakthrough seizure, Diagnoses Acute encephalopathy G93.40 Breakthrough seizure G40.919 Sepsis A41.9 Acute hypoxic respiratory failure J96.01 UTI (urinary tract infection) N39.0 UTI due to extended-spectrum beta lactamase (ESBL) producing Escherichia coli N39.0; B96.29; Z16.12
[2024-09-10] MEDS: enoxaparin 40 mg/0.4 mL Syringe SUBCUT (17:12)
[2024-09-10] MEDS: pantoprazole 40 mg SDV IVP (17:12)
--- NOTE | 2024-09-10 20:15 | PC.NURSE ---
Shift summary: Pt pleasant and cooperative. He has been talkative and smiling this shift. Sinus rhythm noted on monitor. Potassium levels slightly low, He received potassium phosphate IV today. He is still on IV zosyn and vancomycin. He got out of bed today, did decent. During the attempt to get back into bed he slide into floor (see previous note). No injures noted. Pt denies any. He was able to sit up in chair for 3 hours. part of that waiting for lunch so he could eat it sitting up. He remains on room air. Colostomy drained twice and burped one other time. It was mostly liquid today. He had 675 ml in urine out put today. He has ate majority of every meal. His mother and sister came in to visit him today. Both updated on his care.
[2024-09-10] MEDS: trazodone 100 mg Tablet PO (20:48)
[2024-09-11] VITALS (16 sets, daily range): BP systolic 83–151; BP diastolic 59–119; PULSE 62–77; RESP 17–26; TEMP 36.7–36.9; O2SAT 92–99
--- NOTE | 2024-09-11 01:20 | PC.NURSE ---
Found patient holding an IV he had pulled out of his hand. Catheter intact.
[2024-09-11] MEDS: PHENYTOIN 25 MG/ML 250 MG PO ×3 (01:49→18:25)
[2024-09-11] MEDS: chlorhexidine gluconate 4% Btl 118 mL 1 APPLIC TOPICAL (01:49)
[2024-09-11] MEDS: vancomycin 1,500 MG/300 ML PIGGYBACK 200 MG IV ×3 (02:56→18:24)
[2024-09-11] MEDS: piperacillin-tazobactam 4.5 GM in sodium chloride 0.9% (plus) 50 ML IV ×3 (06:02→21:52)
[2024-09-11] MEDS: levothyroxine 25 mcg Tablet PO (08:08)
[2024-09-11] MEDS: levETIRAcetam 500 mg Tablet 2000 MG PO ×2 (08:08→18:24)
[2024-09-11] MEDS: lamoTRIgine 100 mg Tablet 200 MG PO ×2 (08:08→18:24)
[2024-09-11] MEDS: lacosamide 50 mg Tablet 300 MG PO (08:08)
[2024-09-11 09:54] LABS: Basophils # 0.1 10^3/uL (0.0-0.1); Basophils % 0.4 %; Eosinophils # 0.5 10^3/uL (0.0-0.8); Eosinophils % 3.3 %; Hematocrit 40.3 % (37-53); Lymphocytes # 1.4 10^3/uL (0.8-4.8); Lymphocytes % 10.1 %; Mean Corpuscular HGB Conc 34.2 g/dL (30-55); Mean Corpuscular Hemoglobin 32.3 pg (27-33); Mean Corpuscular Volume 94.4 fl (82-101); Mean Platelet Volume 9.2 fL (7.4-10.4); Monocytes % 7.6 %; Neutrophils % 77.7 %; Nucleated Red Blood Cells % 0 %; Platelet Count 233 10^3/cmm (157-399); Red Blood Count 4.27 10^6/uL (3.85-5.65); Red Cell Distribution Width 13.7 % (12.1-15.1); White Blood Count 13.75 10^3/uL (3.29-11.43)
[2024-09-11 10:22] LABS: Lactate (Lactic Acid level) 1.4 mmol/L (0.5-2.2); Magnesium 2.3 mg/dL (1.7-2.3); Phosphorus 2.1 mg/dL (2.5-4.5)
[2024-09-11 10:28] LABS: Anion Gap 14.1 (5-19); Blood Urea Nitrogen 20 mg/dL (6-20); Calcium 9.4 mg/dL (8.5-10.5); Carbon Dioxide 29 mmol/L (22-29); Chloride 101 mmol/L (98-107); Glomerular Filtration Rate 141.5 mL/min (90-130); Glucose 125 mg/dL (65-115); NT Pro B Type Natriuretic Pept 309 pg/mL (0-125); Osmolality Calculated 296 mOsm/kg (285-295); Potassium 3.1 mmol/L (3.5-5.1); Procalcitonin 0.14 ng/mL (0-0.5); Sodium 141 mmol/L (136-145)
[2024-09-11 10:39] LABS: C Reactive Protein 250.9 mg/L (0.0-4.9)
[2024-09-11] MEDS: potassium chloride ER 20 mEq Tablet 40 MEQ PO (11:10)
[2024-09-11] MEDS: aspirin 81 mg EC Tablet PO (11:11)
--- NOTE | 2024-09-11 11:47 | XR_ITS ---
WS: [id number] XR chest 1V portable [id number] REASON FOR EXAM: Post PICC insertion FINDINGS: Endotracheal tube and nasogastric tube have been removed. Right arm PICC line has been placed. The tip of the catheter is in the distal SVC in good position fo r use. Lower lung opacities appear more prominent compared to the examination of 09/09/2024. XR/XR chest 1V portable [id number] IMPRESSION: PICC line in proper position as above. PICC line position was discussed with edgar electronics engineering technologist over the phone at 1240.
--- NOTE | 2024-09-11 13:13 | PICC.NOTE ---
Triple lumen PICC placed to right brachial vein. Referred to vascular access nurse for PICC placement due to poor access and need for IV vancomycin. Risks and benefits discussed and informed consent obtained from pt sister, Barbara. Right arm assessed with right brachial vein measuring 4.5 mm, straight, and apparent best choice for placement. Using sterile technique and MST, right brachial vein accessed x 1 stick. Mid-arm circumference measured 10 cm from right AC 40 cm. Trimmed cath 45 cm with 0 cm external length noted. CXR shows tip in distal SVC, in good position for use per radiologist. Line secured with stat-lock. Insertion site covered with Secureport IV and TSM. Report given to bedside nurse, Coy, RN.
--- NOTE | 2024-09-11 13:34 | CT_ITS ---
WS: [id number] CT HEAD TECHNIQUE: Noncontrast CT of the head obtained from the skullbase to the vertex. CLINICAL INFORMATION: ams COMPARISON: 09/07/2024 DLP: 1262.[address] scans at [facility] use at least one of these dose optimization techniques: automated e xposure control; mA and/or kV adjustment per patient size (includes targeted exams where dose is matc hed to clinical indication); or iterative reconstruction. FINDINGS: No evidence of intracranial hemorrhage or mass effect. Ventricular system and basal cisterns are baltazar nt. Mild small vessel changes with mild parenchymal volume loss. No extra-axial fluid collections. No evidence of mass or mass effect. Tiny focus of dural thickening along the falx likely a small meningioma measuring 7 mm. This appears unchanged over multiple prior examinations dating back to 2021. Mild mucosal thickening in the parana nhung sinuses. Retention cyst RIGHT maxillary sinus measuring 1.8 cm. Retention cyst in the sphenoid si nus measuring 1.3 cm. Mastoid air cells are well aerated. CT/CT head wo con* [id number] IMPRESSION: 1. No evidence of intracranial hemorrhage or mass effect. 2. No changes from previous. 3. No acute intracranial findings.
--- NOTE | 2024-09-11 14:36 | PC.SOCIAL ---
IMM Updated Updated pt on IMM. No questions voiced. Provided pt a copy. Initialed, dated, & timed a copy & placed in chart.
--- NOTE | 2024-09-11 14:44 | XRR_ITS ---
PROCEDURE INFORMATION: Exam: XR Bilateral Hips Exam date and time: 09/11/2024 2:57 PM Age: 53 years old Clinical indication: Hip pain; Bilateral; Prior surgery; Surgery date: 6+ months; Surgery type: Colostomy; Patient HX: HX of colon cancer TECHNIQUE: Imaging protocol: Radiologic exam of the bilateral hips. Views: 2 views of hips with pelvis when performed. COMPARISON: CT kidney stone [id number] 09/07/2024 4:38 PM FINDINGS: Bones/joints: Unremarkable. No acute fracture. Soft tissues: Unremarkable. XR/XR hip BI 2V wo/w pel [id number] IMPRESSION: No acute findings.
--- NOTE | 2024-09-11 14:48 | P.PN_ITS ---
Subjective 2 Subjective: Patient was seen this morning, he is alert to person, not to place, not to time he does follow commands, however confused this morning, denies any nausea, no vomiting, no abdominal pain, no chest pain, yesterday afternoon, patient did slide down to the ground, no significant trauma reported, no head trauma, no loss of consciousness, he does complain of pain in his hip, Vitals/I&O/Wt Last Vital Signs Temp 98.5 F 09/11/24 08:00 Pulse 69 09/11/24 14:00 Resp 17 09/11/24 14:00 BP 113/64 09/11/24 14:00 Pulse Ox 95 09/11/24 14:00 O2 Del Method Room Air 09/11/24 14:00 O2 Flow Rate 2 09/10/24 00:30 FiO2 30 09/09/24 14:30 09/10/24 09/11/24 09/11/24 22:59 06:59 14:59 Intake Total 1103.0909 / 1873.0909 350 / 2223.0909 830 / 830 Output Total 800 / 1710 700 / 2410 200 / 200 Balance 303.0909 / 163.0909 -350 / -186.9091 630 / 630 Weight last 48 hrs Weight 142.5 kg Weight 141.203 kg Physical Exam 2 Const: COMMON NORMALS: no acute distress EXAM LIMITATIONS: altered mental status ORIENTATION/CONSCIOUSNESS: Yes awake, Yes oriented to person and Yes confused; not oriented to place and not oriented to time Resp: COMMON NORMALS: normal respiratory effort, No retractions, No use of accessory muscles and clear to auscultation bilaterally AUSCULTATION: clear to auscultation bilaterally Cardio: COMMON NORMALS: regular rate, regular rhythm, S1 normal heart sound present and S2 normal heart sound present RATE: regular rate RHYTHM: r egular rhythm HEART SOUNDS: S1 normal heart sound present and S2 normal heart sound present GI: COMMON NORMALS: Normal to inspection, nondistended, normoactive bowel sounds present and non-tender Extremity: COMMON NORMALS: no pedal edema Neuro: SENSORIUM/ORIENTATION: Yes oriented to person, No oriented to place and No oriented to time OTHER: In follow commands such squeezing my fingers, wiggling his toes, able to smile for me, cranial nerves II to XII grossly intact, at other times he is quite confused, pupils equal round reactive to light Urinary Catheter Management: Saenz: Cath Placed During This Visit: yes Reason for Continuing Indwelling Catheter: Accurate Measurement of Urinary Output in Critically Ill Patients Urinary Catheter Date of Insertion: 09/07/23 Data 09/11/24 09:29 09/11/24 09:29 A&P Assessment and plan (1) Acute encephalopathy: (2) Breakthrough seizure: (3) Sepsis: (4) Acute hypoxic respiratory failure: (5) UTI (urinary tract infection): (6) UTI due to extended-spectrum beta lactamase (ESBL) producing Escherichia coli: Plan Acute encephalopathy, episodes of confusion this morning -Multifactorial -Likely component of postictal state -Could be a component from sepsis, UTI, concerns for aspiration pneumonia -Neurochecks -Aspiration precautions -Nih stroke scale Breakthrough seizure, with history of epilepsy -Neurology has been consulted -Has received Vimpat in the emergency room -Has received Keppra in the emergency room -Continue home medications -Seizure precautions Acute hypoxic respiratory failure -Intubated for airway protection -Now with concerns for aspiration event, aspiration pneumonia -Continues to have thick mucous secretions, highly suspicious for aspiration pneumonia, resolving -Extubated to nasal cannula -Follow-up sputum cultures, blood cultures -Monitor respiratory status closely -DuoNeb Aspiration event CT chest CT/CT chest wo con [id number] IMPRESSION: 1. Multifocal airspace disease. There is consolidation in the right lower lobe with a component of volume loss. This finding may be related to mucous plugging causing atelectasis with suspected superimposed right lower lobe pneumonia. 2. Mild atherosclerosis. -Chest vest, Mucomyst, hypertonic saline, aggressive pulmonary toilet -Currently on dysphagia level 6 diet, moderately thickened Concern for aspiration pneumonia -Continue Zosyn Urinary tract infection, ESBL E. coli UTI -Follow blood cultures -Urine culture - continue Zosyn -We will avoid meropenem due to risk of lowering the seizure threshold for now, but will likely need Invanz on discharge -Follow CRP, Pro-Taiwo Sepsis, resolving -Sepsis features met, given elevated lactic acid, encephalopathy, elevated lactic acid, limited white blood cell count Invanz on discharge Diminished DP PT pulse on the left, slightly cooler than the right no pain complaints, likely peripheral vascular disease US/[place] [id number] IMPRESSION: 1. Normal right lower extremity arterial ultrasound. 2. Suspected isolated distal left posterior tibial artery disease as there is a monophasic waveform present. Otherwise, the left lower extremity arterial ultrasound is unremarkable. 3. If clinical concern persists a CT angiogram of the lower extremities can be performed. Plan -Continue aspirin, statin -Full code -Lovenox for DVT prophylaxis -protonix for gi prophylaxis Colostomy bag in place Plan for today will monitor respiratory status closely, CT head, x-ray pelvis, PICC line to be placed for IV antibiotics Invanz for 2 weeks, currently receiving Zosyn, PT OT, speech therapy eval Attestations 2 Medical Necessity Statement*: Patient requires hospitalization for acute encephalopathy, acute respiratory failure breakthrough seizure aspiration, ESBL E. coli UTI Diagnoses Acute encephalopathy G93.40 Breakthrough seizure G40.919 Sepsis A41.9 Acute hypoxic respiratory failure J96.01 UTI (urinary tract infection) N39.0 UTI due to extended-spectrum beta lactamase (ESBL) producing Escherichia coli N39.0; B96.29; Z16.12
[2024-09-11 15:24] LABS: Ammonia 41 umol/L (16-60)
[2024-09-11] MEDS: enoxaparin 40 mg/0.4 mL Syringe SUBCUT (15:50)
[2024-09-11] MEDS: pantoprazole 40 mg SDV IVP (15:51)
[2024-09-11 18:12] LABS: Vancomycin Trough 14.5 ug/mL (10-15)
[2024-09-11] MEDS: atorvastatin 40 mg Tablet PO (21:51)
[2024-09-11] MEDS: trazodone 100 mg Tablet PO (21:52)
[2024-09-12] VITALS (13 sets, daily range): BP systolic 101–141; BP diastolic 61–96; PULSE 59–73; RESP 16–34; TEMP 36.6–37.1; O2SAT 93–96
[2024-09-12] MEDS: PHENYTOIN 25 MG/ML 250 MG PO ×3 (01:14→17:30)
[2024-09-12] MEDS: vancomycin 1,500 MG/300 ML PIGGYBACK 200 MG IV (01:14)
[2024-09-12 01:20] LABS: Lacosamide (Vimpat) 12.5 mcg/mL
[2024-09-12 02:50] LABS: Lamotrigine (Lamictal) Level <0.5 mcg/mL (2.5-15.0)
[2024-09-12 04:25] LABS: Basophils # 0.1 10^3/uL (0.0-0.1); Basophils % 0.6 %; Eosinophils # 0.6 10^3/uL (0.0-0.8); Eosinophils % 4.8 %; Lymphocytes # 1.7 10^3/uL (0.8-4.8); Mean Corpuscular HGB Conc 34.2 g/dL (30-55); Mean Corpuscular Hemoglobin 32.8 pg (27-33); Monocytes # 1.5 10^3/uL (0.2-0.9); Neutrophils # 8.39 10^3/uL (1.8-7.7); Neutrophils % 67.6 %; Nucleated Red Blood Cells % 0 %; Platelet Count 198 10^3/cmm (157-399); Red Blood Count 3.75 10^6/uL (3.85-5.65); Red Cell Distribution Width 13.7 % (12.1-15.1); White Blood Count 12.42 10^3/uL (3.29-11.43)
[2024-09-12] MEDS: chlorhexidine gluconate 4% Btl 118 mL 1 APPLIC TOPICAL (04:33)
[2024-09-12 04:51] LABS: Anion Gap 12.3 (5-19); Blood Urea Nitrogen 16 mg/dL (6-20); Calcium 8.6 mg/dL (8.5-10.5); Carbon Dioxide 27 mmol/L (22-29); Chloride 103 mmol/L (98-107); Glomerular Filtration Rate 174.6 mL/min (90-130); Glucose 111 mg/dL (65-115); Osmolality Calculated 290 mOsm/kg (285-295); Potassium 3.3 mmol/L (3.5-5.1); Sodium 139 mmol/L (136-145)
[2024-09-12 04:52] LABS: Magnesium 2.1 mg/dL (1.7-2.3); Phosphorus 1.9 mg/dL (2.5-4.5)
[2024-09-12 04:57] LABS: Procalcitonin 0.13 ng/mL (0-0.5)
[2024-09-12 04:58] LABS: C Reactive Protein 100.6 mg/L (0.0-4.9)
--- NOTE | 2024-09-12 05:43 | PC.NURSE ---
Contacted Dr. Priest in reference to patient's potassium and phosphate lab results, both being low. Received orders for potassium phopshate which Dr. Priest input into MAR.
[2024-09-12] MEDS: piperacillin-tazobactam 4.5 GM in sodium chloride 0.9% (plus) 50 ML IV ×3 (05:45→22:56)
[2024-09-12] MEDS: potassium phosphate (mMol PO4) 15 MMOL in sodium chloride 0.9% (100 ml) 100 ML 47 MMOL IV (06:35)
[2024-09-12] MEDS: aspirin 81 mg EC Tablet PO (09:19)
[2024-09-12] MEDS: levETIRAcetam 500 mg Tablet 2000 MG PO ×2 (09:19→17:29)
[2024-09-12] MEDS: levothyroxine 25 mcg Tablet PO (09:19)
[2024-09-12] MEDS: lamoTRIgine 100 mg Tablet 200 MG PO ×2 (09:19→17:29)
--- NOTE | 2024-09-12 15:10 | P.PN_ITS ---
Subjective 2 Subjective: Patient was seen this morning, he is alert to person, to place, to time, he has no complaints, no breakthrough seizures in the room air Vitals/I&O/Wt Last Vital Signs Temp 98.1 F 09/12/24 11:36 Pulse 68 09/12/24 11:36 Resp 16 09/12/24 11:36 BP 124/73 09/12/24 11:36 Pulse Ox 95 09/12/24 11:36 O2 Del Method Room Air 09/12/24 11:36 O2 Flow Rate 2 09/10/24 00:30 FiO2 30 09/09/24 14:30 09/12/24 09/12/24 09/12/24 06:59 14:59 22:59 Intake Total 350 / 2209.083 395 / 395 Output Total 350 / 1650 400 / 400 Balance 0 / 559.083 -5 / -5 Weight last 48 hrs Weight 145 kg Weight 142.5 kg Physical Exam 2 Const: COMMON NORMALS: no acute distress ORIENTATION/CONSCIOUSNESS: Yes awake, Yes oriented to person and Yes oriented to place; not oriented to time Resp: COMMON NORMALS: normal respiratory effort, No retractions, No use of accessory muscles and clear to auscultation bilaterally AUSCULTATION: clear to auscultation bilaterally Cardio: COMMON NORMALS: regular rate, regular rhythm, S1 normal heart sound present and S2 normal heart sound present RATE: regular rate RHYTHM: r egular rhythm HEART SOUNDS: S1 normal heart sound present and S2 normal heart sound present GI: COMMON NORMALS: Normal to inspection, nondistended, normoactive bowel sounds present and non-tender Extremity: COMMON NORMALS: no pedal edema Neuro: SENSORIUM/ORIENTATION: Yes oriented to person, Yes oriented to place and No oriented to time Psych: COMMON NORMALS: mental status grossly normal Urinary Catheter Management: Saenz: Cath Placed During This Visit: yes Reason for Continuing Indwelling Catheter: Accurate Measurement of Urinary Output in Critically Ill Patients Urinary Catheter Date of Insertion: 09/07/23 Data 09/12/24 04:03 09/12/24 04:03 A&P Assessment and plan (1) Acute encephalopathy: (2) Breakthrough seizure: (3) Sepsis: (4) Acute hypoxic respiratory failure: (5) UTI (urinary tract infection): (6) UTI due to extended-spectrum beta lactamase (ESBL) producing Escherichia coli: Plan Acute encephalopathy, resolving -Multifactorial -Likely component of postictal state -Could be a component from sepsis, UTI, concerns for aspiration pneumonia -Neurochecks -Aspiration precautions -Nih stroke scale Breakthrough seizure, with history of epilepsy, no recurrent breakthrough seizures thus so far -Neurology has been consulted -Has received Vimpat in the emergency room -Has received Keppra in the emergency room -Continue home medications -Seizure precautions Acute hypoxic respiratory failure -Intubated for airway protection -Now with concerns for aspiration event, aspiration pneumonia -Continues to have thick mucous secretions, highly suspicious for aspiration pneumonia, resolving -Extubated to nasal cannula -Follow-up sputum cultures, blood cultures -Monitor respiratory status closely -DuoNeb Aspiration event CT chest CT/CT chest wo con [id number] IMPRESSION: 1. Multifocal airspace disease. There is consolidation in the right lower lobe with a component of volume loss. This finding may be related to mucous plugging causing atelectasis with suspected superimposed right lower lobe pneumonia. 2. Mild atherosclerosis. -Chest vest, Mucomyst, hypertonic saline, aggressive pulmonary toilet -Currently on dysphagia level 6 diet, moderately thickened Concern for aspiration pneumonia -Continue Zosyn Urinary tract infection, ESBL E. coli UTI -Follow blood cultures -Urine culture - continue Zosyn -Given his severe sepsis infection, with ESBL, will have to use carbapenem, generally ertapenem is associate with lower seizure risk than other carbapenems, risk of seizure is less than 1%, -Follow CRP, Pro-Taiwo Sepsis, resolving -Sepsis features met, given elevated lactic acid, encephalopathy, elevated lactic acid, limited white blood cell count Invanz on discharge Diminished DP PT pulse on the left, slightly cooler than the right no pain complaints, likely peripheral vascular disease US/[place] [id number] IMPRESSION: 1. Normal right lower extremity arterial ultrasound. 2. Suspected isolated distal left posterior tibial artery disease as there is a monophasic waveform present. Otherwise, the left lower extremity arterial ultrasound is unremarkable. 3. If clinical concern persists a CT angiogram of the lower extremities can be performed. Plan -Continue aspirin, statin -Full code -Lovenox for DVT prophylaxis -protonix for gi prophylaxis Colostomy bag in place Plan for today monitor respiratory status closely, continue IV antibiotics, PT OT moved to MedSurg Attestations 2 Medical Necessity Statement*: Patient requires hospitalization for breakthrough seizure, respiratory failure, ESBL E. coli UTI, aspiration pneumonia Diagnoses Acute encephalopathy G93.40 Breakthrough seizure G40.919 Sepsis A41.9 Acute hypoxic respiratory failure J96.01 UTI (urinary tract infection) N39.0 UTI due to extended-spectrum beta lactamase (ESBL) producing Escherichia coli N39.0; B96.29; Z16.12
[2024-09-12] MEDS: enoxaparin 40 mg/0.4 mL Syringe SUBCUT (17:29)
[2024-09-12] MEDS: pantoprazole 40 mg SDV IVP (17:30)
[2024-09-12] MEDS: trazodone 100 mg Tablet PO (21:57)
[2024-09-12] MEDS: atorvastatin 40 mg Tablet PO (21:57)
[2024-09-13] VITALS (7 sets, daily range): BP systolic 107–188; BP diastolic 54–82; PULSE 62–70; RESP 16–17; TEMP 36.6–36.8; O2SAT 93–96
[2024-09-13] MEDS: PHENYTOIN 25 MG/ML 250 MG PO ×2 (02:05→11:07)
[2024-09-13 05:39] LABS: Basophils # 0.1 10^3/uL (0.0-0.1); Basophils % 0.7 %; Eosinophils # 0.6 10^3/uL (0.0-0.8); Eosinophils % 4.8 %; Hematocrit 36.6 % (37-53); Lymphocytes # 2.1 10^3/uL (0.8-4.8); Lymphocytes % 17.2 %; Mean Corpuscular HGB Conc 34.2 g/dL (30-55); Mean Corpuscular Volume 96.6 fl (82-101); Mean Platelet Volume 9.2 fL (7.4-10.4); Monocytes # 1.6 10^3/uL (0.2-0.9); Neutrophils # 7.57 10^3/uL (1.8-7.7); Neutrophils % 62.2 %; Nucleated Red Blood Cells % 0 %; Platelet Count 202 10^3/cmm (157-399); Red Blood Count 3.79 10^6/uL (3.85-5.65); Red Cell Distribution Width 13.8 % (12.1-15.1); White Blood Count 12.17 10^3/uL (3.29-11.43)
[2024-09-13 06:10] LABS: C Reactive Protein 61.8 mg/L (0.0-4.9); Magnesium 2.2 mg/dL (1.7-2.3); Phosphorus 2.7 mg/dL (2.5-4.5)
[2024-09-13 06:12] LABS: Procalcitonin 0.09 ng/mL (0-0.5)
[2024-09-13 06:13] LABS: Anion Gap 16.4 (5-19); Blood Urea Nitrogen 17 mg/dL (6-20); Calcium 8.7 mg/dL (8.5-10.5); Carbon Dioxide 25 mmol/L (22-29); Chloride 105 mmol/L (98-107); Creatinine Clr Calc Pharmacy 221.6239; Glomerular Filtration Rate 141.5 mL/min (90-130); Glucose 95 mg/dL (65-115); Osmolality Calculated 297 mOsm/kg (285-295); Potassium 3.4 mmol/L (3.5-5.1); Sodium 143 mmol/L (136-145)
[2024-09-13] MEDS: piperacillin-tazobactam 4.5 GM in sodium chloride 0.9% (plus) 50 ML IV (07:13)
[2024-09-13] MEDS: lamoTRIgine 100 mg Tablet 200 MG PO (09:23)
[2024-09-13] MEDS: levothyroxine 25 mcg Tablet PO (09:23)
[2024-09-13] MEDS: levETIRAcetam 500 mg Tablet 2000 MG PO (09:23)
[2024-09-13] MEDS: aspirin 81 mg EC Tablet PO (09:23)
--- NOTE | 2024-09-13 10:00 | PC.SOCIAL ---
IMM Update pg 2 of IMM Updated and reviewed w/ patient and his mom. Copy provided and copy dated, initialed and placed in chart.
--- NOTE | 2024-09-13 11:11 | P.DS_ITS ---
Discharge Providers Date of Admission: 09/07/24 15:20 Date of Discharge: September 13, 2024 Attending Provider at Admission: Edwin Garibay MD Attending Provider at Discharge: Edwin Garibay MD Primary Care Provider: NIRANJAN Drummond Diagnoses at Discharge Discharge Diagnosis (1) Acute encephalopathy: Status: Resolved (2) Breakthrough seizure: Status: Inactive (3) Sepsis: Status: Resolved (4) Acute hypoxic respiratory failure: Status: Resolved (5) UTI (urinary tract infection): Status: Resolved (6) UTI due to extended-spectrum beta lactamase (ESBL) producing Escherichia coli: Status: Resolved Reason for Visit Reason for Visit: SEIZURE Hospital Course Hospital Course Jaziel Willis is a 53 year old male with a past medical history of epilepsy, history of partial colectomy, history of C. difficile colitis, developmental disorder, morbid obesity, hypertension, peripheral vascular disease who presents [facility] for seizure. Currently patient is alert to person not to place, to time, he is intubated, on mechanical ventilation, he does easily arouse, can follow commands, but easily falls back asleep is on 45% FiO2, temperature 99, BP 140 54/70, pulse is 97, patient's family ember is at bedside. According to patient's family and ER provider, patient had several seizures today, there is concerns for protection of airway airway, so he was intubated, received ketamine, rocuronium, 5 mg of Versed. Patient's family ember at bedside tells me that he has been seizure-free since his last hospitalization, in December, no recent fevers, no chills, no cough, he lives at home, with family numbers, can ambulate a few feet, no recent falls, recent injuries, no cough complaints, he has been taking his medications as prescribed Patient was admitted to [facility] for breakthrough seizures, intubated for airway protection, monitor in the ICU. Overall patient remains seizure-free during his hospitalization, was extubated, no recurrent seizure- like episodes, will be discharged with his antiseizure medication regimen at home. Spoke to neurology, will have him follow-up with neurology as outpatient For acute respiratory failure, concerns for aspiration ammonia, received broad-spectrum antibiotic therapy ESBL E. coli UTI, received broad-spectrum antibiotic therapy, cultures sensitive to carbapenem, he did receive ertapenem during his hospitalization without any seizure episodes, will be discharged on 10 remaining days of ertapenem Sepsis secondary to UTI, aspiration pneumonia, resolved Diminished DP PT pulse on the left, slightly cooler than the right no pain complaints, likely peripheral vascular disease US/[place] [id number] IMPRESSION: 1. Normal right lower extremity arterial ultrasound. 2. Suspected isolated distal left posterior tibial artery disease as there is a monophasic waveform present. Otherwise, the left lower extremity arterial ultrasound is unremarkable. 3. If clinical concern persists a CT angiogram of the lower extremities can be performed. -Continue aspirin, statin -Relatively asymptomatic, no pain complaints, on discharge had good left DP PT pulses, good cap refill, good warmth to the left lower extremity, -Follow-up with the primary care Physical Exam Const: COMMON NORMALS: no acute distress ORIENTATION/CONSCIOUSNESS: Yes awake, Yes oriented to person and Yes oriented to place Resp: COMMON NORMALS: normal respiratory effort, No retractions, No use of accessory muscles and clear to auscultation bilaterally AUSCULTATION: clear to auscultation bilaterally Cardio: COMMON NORMALS: regular rate, regular rhythm, S1 normal heart sound present and S2 normal heart sound present RATE: regular rate RHYTHM: regular rhythm HEART SOUNDS: S1 normal heart sound present and S2 normal heart sound present GI: COMMON NORMALS: Normal to inspection, nondistended, normoactive bowel sounds present and non-tender Extremity: COMMON NORMALS: no pedal edema Neuro: SENSORIUM/ORIENTATION: Yes oriented to person and Yes oriented to place Urinary Catheter Management: Saenz: Cath Placed During This Visit: yes Reason for Continuing Indwelling Catheter: Other Urinary Catheter Date of Insertion: 09/07/23 Discharge Data Studies Completed and Pending Completed Studies During Hospitalization Category Date Time Status CT cervical spin wo con* [id number] Stat Cat Scan 09/07/24 11:[address] chest wo con [id number] Routine Cat Scan 09/07/24 16:[address] head wo con* [id number] Routine Cat Scan 09/11/24 13:[address] head wo con* [id number] Stat Cat Scan 09/07/24 12:[address] kidney stone [id number] Stat Cat Scan 09/07/24 15:10 Completed CXRP [XR chest 1V portable [id number]] Routine Exams 09/11/24 11:47 Completed XR chest 1V portable [id number] Routine Exams 09/09/24 07:00 Completed XR chest 1V portable [id number] Stat Exams 09/07/24 11:47 Completed XR chest 1V portable [id number] Stat Exams 09/07/24 18:33 Completed XR hip BI 2V wo/w pel [id number] Routine Exams 09/11/24 14:44 Completed US arterial duplex lower extremity bilat [CV arterial Ultrasound 09/09/24 11:11 [place] [id number]] Routine US renal BI* [id number] Routine Ultrasound 09/07/24 16:45 Completed Pending at discharge Category Date Time Status C Reactive Protein AM LABS Lab 09/14/24 04:00 Ordered Procalcitonin AM LABS Lab 09/14/24 04:00 Ordered Radiology Impressions Cervical Spine CT 09/07/24 11:50 IMPRESSION: 1. No acute cervical spine fracture. 2. Atelectatic lung noted at the RIGHT apex. 3. Tip of the endotracheal tube is not included. On a recent radiograph the tip appears appropriate. Abdomen/Pelvis CT 09/07/24 15:10 IMPRESSION: 1. No visible acute abdominopelvic pathology. 2. Punctate nonobstructing left kidney stone. Chest CT 09/07/24 16:45 IMPRESSION: 1. Multifocal airspace disease. There is consolidation in the right lower lobe with a component of volume loss. This finding may be related to mucous plugging causing atelectasis with suspected superimposed right lower lobe pneumonia. 2. Mild atherosclerosis. Renal Ultrasound 09/07/24 16:45 IMPRESSION: Normal renal ultrasound. Duplex Scan Lower Extremity Artery 09/09/24 11:11 IMPRESSION: 1. Normal right lower extremity arterial ultrasound. 2. Suspected isolated distal left posterior tibial artery disease as there is a monophasic waveform present. Otherwise, the left lower extremity arterial ultrasound is unremarkable. 3. If clinical concern persists a CT angiogram of the lower extremities can be performed. Chest X-Ray 09/11/24 11:47 IMPRESSION: PICC line in proper position as above. PICC line position was discussed with the polysomnographic technologist over the phone at 1240. Head CT 09/11/24 13:34 IMPRESSION: 1. No evidence of intracranial hemorrhage or mass effect. 2. No changes from previous. 3. No acute intracranial findings. Hip/Pelvis X-Ray 09/11/24 14:44 IMPRESSION: No acute findings. Laboratory Results WBC 12.17 10^3/uL (3.29-11.43) H 09/13/24 04:24 RBC 3.79 10^6/uL (3.85-5.65) L 09/13/24 04:24 Hgb 12.50 g/dL (11.27-16.99) 09/13/24 04:24 Hct 36.6 % (37-53) L 09/13/24 04:24 MCV 96.6 fl (82-101) 09/13/24 04:24 MCH 33.0 pg (27-33) 09/13/24 04:24 MCHC 34.2 g/dL (30-55) 09/13/24 04:24 RDW 13.8 % (12.1-15.1) 09/13/24 04:24 Plt Count 202 10^3/cmm (157-399) 09/13/24 04:24 MPV 9.2 fL (7.4-10.4) 09/13/24 04:24 Neut % (Auto) 62.2 % 09/13/24 04:24 Lymph % (Auto) 17.2 % 09/13/24 04:24 [place] % (Auto) 13.0 % 09/13/24 04:24 Eos % (Auto) 4.8 % 09/13/24 04:24 Baso % (Auto) 0.7 % 09/13/24 04:24 Neut # (Auto) 7.57 10^3/uL (1.8-7.7) 09/13/24 04:24 Lymph # (Auto) 2.1 10^3/uL (0.8-4.8) 09/13/24 04:24 [place] # (Auto) 1.6 10^3/uL (0.2-0.9) H 09/13/24 04:24 Eos # (Auto) 0.6 10^3/uL (0.0-0.8) 09/13/24 04:24 Baso # (Auto) 0.1 10^3/uL (0.0-0.1) 09/13/24 04:24 Nucleated RBC % (auto) 0 % 09/13/24 04:24 Nucleated RBCs # 0.0 /100WBC 09/13/24 04:24 Specimen Type Arterial 09/09/24 04:30 Sample Site Brachial, right 09/09/24 04:30 ABG pH 7.39 (7.35-7.45) 09/09/24 04:30 ABG pCO2 39.1 mmHg (35-45) 09/09/24 04:30 ABG pO2 78.9 mmHg (80.0-100.0) L 09/09/24 04:30 ABG PO2/FiO2 Ratio 197 09/09/24 04:30 ABG HCO3 23.9 mmol/L (22-26) 09/09/24 04:30 ABG O2 Saturation 95.6 09/07/24 16:12 ABG Base Excess -0.9 mmol/L (-2.0-2.0) 09/09/24 04:30 Ricardo Test N/a 09/09/24 04:30 A-a O2 Gradient 26.7 mmHg (5-10) H 09/07/24 16:12 Hematocrit 43.1 % (42-52) 09/09/24 04:30 Hgb O2 Saturation 93.9 % (95-100) L 09/07/24 16:12 Carboxyhemoglobin 1.3 %THgb (0.4-20.1) 09/07/24 16:12 Methemoglobin 0.5 % (0.4-1.5) 09/07/24 16:12 Total Hemoglobin 16.5 g/dL (14-18) 09/07/24 16:12 Sodium 139.0 mmol/L (131-143) 09/07/24 16:12 Potassium 5.6 mmol/L (3.5-5.0) H 09/07/24 16:12 Glucose 122.0 mg/dL (70-115) H 09/07/24 16:12 Ionized Calcium 1.2 mmol/L (1.1-1.4) 09/07/24 16:12 O2 Delivery Device Vent 09/09/24 04:30 FiO2 40.0 % 09/09/24 04:30 Tidal Volume 0.55 09/09/24 04:30 PEEP 5.0 cmH20 09/09/24 04:30 Adjuster Arbitrator ID [email or web address] 09/09/24 04:30 Sodium 143 mmol/L (136-145) 09/13/24 04:24 Potassium 3.4 mmol/L (3.5-5.1) L 09/13/24 04:24 Chloride 105 mmol/L (98-107) 09/13/24 04:24 Carbon Dioxide 25 mmol/L (22-29) 09/13/24 04:24 Anion Gap 16.4 (5-19) 09/13/24 04:24 BUN 17 mg/dL (6-20) 09/13/24 04:24 Creatinine 0.6 mg/dL (0.7-1.2) L 09/13/24 04:24 GFR Calculation 141.5 mL/min (90-130) H 09/13/24 04:24 Glucose 95 mg/dL (65-115) 09/13/24 04:24 Estimat Average Glucose 74 09/08/24 05:20 Hemoglobin A1c 4.2 % (4.0-6.0) 09/08/24 05:20 Calculated Osmolality 297 mOsm/kg (285-295) H 09/13/24 04:24 Lactic Acid 3.0 mmol/L (0.5-2.2) H 09/09/24 13:54 Lactic Acid (Sepsis) 2.5 mmol/L (0.5-2.2) H 09/09/24 17:16 Lactate 1.4 mmol/L (0.5-2.2) 09/11/24 09:29 Calcium 8.7 mg/dL (8.5-10.5) 09/13/24 04:24 Phosphorus 2.7 mg/dL (2.5-4.5) 09/13/24 04:24 Magnesium 2.2 mg/dL (1.7-2.3) 09/13/24 04:24 Total Bilirubin 1.0 mg/dL (0.15-1.2) 09/10/24 04:22 AST 18 U/L (0-40) 09/10/24 04:22 ALT 13 U/L (0-41) 09/10/24 04:22 Alkaline Phosphatase 110 U/L (40-130) 09/10/24 04:22 Ammonia 41 umol/L (16-60) 09/11/24 14:58 Creatine Kinase 178 U/L (39-308) 09/10/24 04:22 C-Reactive Protein 61.8 mg/L (0.0-4.9) H 09/13/24 04:24 NT-Pro-B Natriuret Pep 309 pg/mL (0-125) H 09/11/24 09:29 Total Protein 6.4 g/dL (6.6-8.7) L 09/10/24 04:22 Albumin 3.2 g/dL (3.5-5.2) L 09/10/24 04:22 Globulin 3.2 g/dL (1.3-4.6) 09/10/24 04:22 Triglycerides 165 mg/dL (0-150) H 09/07/24 12:01 Cholesterol 197 mg/dL (0-200) 09/07/24 12:01 LDL Cholesterol, Calc 82 mg/dL (50-129) 09/07/24 12:01 HDL Cholesterol 82 mg/dL (60-100) 09/07/24 12:01 LDL/HDL Ratio 1.00 RATIO (0.00-3.22) 09/07/24 12: Cholesterol/HDL Ratio 2.40 mg/dL (1.0-5.00) 09/07/24 12:01 Procalcitonin 0.09 ng/mL (0-0.5) 09/13/24 04:24 TSH 7.04 uIU/mL (0.27-4.20) H 09/07/24 12:01 Urine Color Yellow (Yellow) 09/07/24 14:19 Urine Appearance Cloudy (CLEAR) A 09/07/24 14:19 Urine pH 5.0 (5-7) 09/07/24 14:19 Ur Specific [place] 1.017 (1.005-1.030) 09/07/24 14:19 Urine Protein 2+ (Negative) A 09/07/24 14:19 Urine Glucose (UA) Negative (Normal) 09/07/24 14:19 Urine Ketones Negative (Negative) 09/07/24 14:19 Urine Blood Trace (Negative) A 09/07/24 14:19 Urine Nitrate Positive (Negative) A 09/07/24 14:19 Urine Bilirubin Negative (Negative) 09/07/24 14:19 Urine Urobilinogen 0.2 mg/dL (Negative) 09/07/24 14:19 Ur Leukocyte Esterase 1+ (Negative) A 09/07/24 14:19 Urine RBC 0-2 /hpf (0-2) 09/07/24 14:19 Urine WBC 51-100 /hpf (0-5) H 09/07/24 14:19 Ur Squamous Epith Cells 0-5 /hpf (0-5) 09/07/24 14:19 Calcium Oxalate Crystal 5-10 /hpf H 09/07/24 14:19 Amorphous Sediment Not Reportable 09/07/24 14:19 Urine Bacteria 4+ /hpf (NONE) H 09/07/24 14:19 Hyaline Casts 9.07 /lpf 09/07/24 14:19 Vancomycin Trough 14.5 ug/mL (10-15) 09/11/24 17:20 Phenytoin 8.0 ug/mL (10-20) L 09/07/24 12:01 Lamotrigine <0.5 mcg/mL (2.5-15.0) L 09/07/24 13:55 Lacosamide Level 12.5 mcg/mL 09/07/24 13:55 Adenovirus (PCR) Not detected (NOT DETECT) 09/07/24 17:40 C. pneumoniae DNA (PCR) Not detected (NOT DETECT) 09/07/24 17:40 C. difficile (PCR) Negative (Negative) 09/09/24 14:32 Coronavirus (PCR) Cancelled 09/07/24 17:40 Coronavirus 229E (PCR) Not detected (NOT DETECT) 09/07/24 17:40 Human Metapneumovir PCR Not detected (NOT DETECT) 09/07/24 17:40 Influenza A (H1) PCR Not detected (NOT DETECT) 09/07/24 17:40 Influenza A (PCR) Cancelled 09/07/24 17:40 Influ A (H1/09) PCR Not detected (NOT DETECT) 09/07/24 17:40 Influenza A (H3) PCR Not detected (NOT DETECT) 09/07/24 17:40 Influenza Type A (PCR) Not detected (NOT DETECT) 09/07/24 17:40 Influenza Type B (PCR) Cancelled 09/07/24 17:40 Influenza Type B (PCR) Not detected (NOT DETECT) 09/07/24 17:40 M. pneumoniae (PCR) Not detected (NOT DETECT) 09/07/24 17:40 Parainfluenza 1 (PCR) Not detected (NOT DETECT) 09/07/24 17:40 Parainfluenza 2 (PCR) Not detected (NOT DETECT) 09/07/24 17:40 Parainfluenza 3 (PCR) Not detected (NOT DETECT) 09/07/24 17:40 Parainfluenza 4 (PCR) Not detected (NOT DETECT) 09/07/24 17:40 RSV (PCR) Cancelled 09/07/24 17:40 RSV Type A (PCR) Not detected (NOT DETECT) 09/07/24 17:40 RSV Type B (PCR) Not detected (NOT DETECT) 09/07/24 17:40 Entero/Rhino (PCR) Not detected (NOT DETECT) 09/07/24 17:40 SARS-CoV-2 (PCR) Not detected (NOT DETECT) 09/07/24 17:40 Vitals Last Vital Signs Temp 98.3 F 09/13/24 07:30 Pulse 70 09/13/24 08:00 Resp 16 09/13/24 08:00 BP 188/80 09/13/24 07:30 Pulse Ox 96 09/13/24 08:00 O2 Del Method Room Air 09/13/24 08:00 O2 Flow Rate 2 09/10/24 00:30 FiO2 30 09/09/24 14:30 Discharge Plan Discharge Patient Disposition: Home Condition: Stable Prescriptions: New atorvastatin 40 mg Tablet 40 mg PO BEDTIME 30 Days Qty: 30 0RF aspirin 81 mg Tablet,Delayed Release (Dr/Ec) 81 mg PO DAILY 30 Days Qty: 30 0RF ertapenem 1 gram recon soln 1 g IV DAILY 7 Days Qty: 7 0RF Continued levothyroxine [Levo-T] 25 mcg tablet 25 mcg PO DAILY Qty: 30 1RF lamotrigine 200 mg tablet 200 mg PO BID Qty: 60 11RF levetiracetam 1,000 mg tablet 2,000 mg PO BID Qty: 120 11RF phenytoin 50 mg tablet,chewable 250 mg PO Q8H Qty: 450 11RF trazodone 100 mg tablet 100 mg PO BEDTIME Qty: 30 2RF lacosamide 50 mg tablet 300 mg PO BID No Action (DME) Compression hose See Rx Instructions .Route .MEDSUPPLY Qty: 1 2RF Rx Instructions: Measure to fit A6531 (DME) Diabetic Shoes with 3 pairs of inserts See Rx Instructions .ROUTE .MEDSUPPLY Qty: 1 0RF Rx Instructions: As directed by HOME (DME) Compression hose See Rx Instructions Rx Instructions: Measure for size A6530 Discharge Orders: Discharge Order (Routine); Ordered 09/13/24 Ordered By: Edwin Garibay Referrals: GI Lab Outpatient Surgery [Other] - 09/16/24 12:00 pm (You will come into the Outpatient [facility] Center on Wednesday and Wednesday at noon.) [facility] [Outside] [facility] [Outside] - 09/14/24 1:00 pm Candi Latif, DANCING INSTRUCTOR-C [Primary Care Provider] - (We have notified your physician's clinic of the need for a follow-up appointment to be scheduled. If you have not heard from them within the next 2 business days, please call them directly. ) Discharge Diet: Cardiac Discharge Activity: Resume usual activity Patient Instructions: Aspirin (By mouth), Atorvastatin (By mouth), Ertapenem (By injection), PICC (Peripherally Inserted Central Catheter) (GEN), Opioid Safety Activity Restrictions/Additional Instructions: - Invanz 1 g IV every 24hr for 7 days -remove midline therafer Discharge Attestations Time Spent in Discharge Care*: greater than 30 min Status at Discharge: Cognitive status at discharge: moderately impaired cognition , Behavioral status at discharge: cooperative , Quality Metrics Clinical Quality Measures [ No reported AMI, CVA or VTE this stay] Coding Level of Care Code 55566 Total time (in minutes) for Discharge: 45 Diagnoses Acute encephalopathy G93.40 Breakthrough seizure G40.919 Sepsis A41.9 Acute hypoxic respiratory failure J96.01 UTI (urinary tract infection) N39.0 UTI due to extended-spectrum beta lactamase (ESBL) producing Escherichia coli N39.0; B96.29; Z16.12
[2024-09-13] MEDS: lacosamide 50 mg Tablet 300 MG PO (11:22)
--- NOTE | 2024-09-13 11:24 | PICC.NOTE ---
PICC dressing to right upper extremity changed prior to discharge. Site slightly bruised. No bleeding or hematoma noted. Insertion site cleaned with CHG. Biopatch applied and secured with Sorbaview dressing. Surgilast in place to keep line from dangling. Pt placed on OPS infusion scheduled for Wednesday and Wednesday at 1200. Appointment card to be given to pt mother with instructions.
[2024-09-13] MEDS: ertapenem 1,000 mg SDV 1000 MG IVP (12:57)
--- NOTE | 2024-09-13 13:55 | PC.NURSE ---
Discussed discharge with parent and sister for patient. Discussed new medications, Come to hospital for injections which Gini explained in detail to patients family. Discussed discontinued medications and follow up appointments. Gini gave patients family a card to let them know where patient needs to go for infusions. Family verbalized understanding.
== END 2024-09-13 13:24 | disposition home or self-care (01) | DRG 871 ==
LOC: ER 12:02 → ICU 15:20 → MEDSURG 09-12 11:20
PROVIDERS: Admitting Provider Family Medicine; Emergency Provider Family Medicine; PCP Nurse Practitioner; Visit Provider Family Medicine
DX: A41.9 Sepsis, unspecified organism (principal); G93.41 Metabolic encephalopathy; J96.01 Acute respiratory failure with hypoxia; J69.0 Pneumonitis due to inhalation of food and vomit; G40.011 Localization-related (focal) (partial) idiopathic epilepsy and epileptic syndromes with seizures of localized onset, intractable, with status epilepticus; N39.0 Urinary tract infection, site not specified; Z16.12 Extended spectrum beta lactamase (ESBL) resistance; R65.20 Severe sepsis without septic shock; B96.20 Unspecified Escherichia coli [E. coli] as the cause of diseases classified elsewhere; F89 Unspecified disorder of psychological development; I73.9 Peripheral vascular disease, unspecified; Z93.3 Colostomy status
CPT/HCPCS: 36415; 36573; 36592; 36600; 70450; 71045; 71250; 72125; 73521; 74176; 76770; 80048; 80051; 80053; 80061; 80175; 80185; 80202; 80299; 81001; 82140; 82330; 82550; 82803; 82805; 83036; 83605; 83735; 83880; 84100; 84145; 84443; 85025; 86140; 87040; 87070; 87077; 87086; 87186; 87205; 87486; 87493; 87581; 87633; 92526; 92610; 93005; 93925; 94002; 94003; 94640; 94664; 94669; 94799; 96365; 96367; 96372; 96374; 96375; 96376; 97110; 97116; 97161; 97167; 97530; 97535; 99291; C1751; C9254; J1335; J1650; J1940; J1953; J2250; J2270; J2405; J2470; J2543; J2704; J3010; J3370; J7608

== ENCOUNTER 2024-09-21 14:00 | Oncology outpatient (recurring) (ONCR) | payer MEDICARE, MEDICAID, SELFPAY ==
[2024-09-14] MEDS: ertapenem 1,000 mg SDV 1000 MG IVP (13:34)
[2024-09-14 13:44] VITALS: BP 144/99; PULSE 69; TEMP 36.3
[2024-09-15] MEDS: ertapenem 1,000 mg SDV 1000 MG IVP (10:59)
[2024-09-15 11:17] VITALS: BP 128/82; PULSE 68; RESP 16; TEMP 36.9; O2SAT 98
[2024-09-16] MEDS: ertapenem 1,000 mg SDV 1000 MG IVP (11:49)
[2024-09-16 11:50] VITALS: BP 142/86; PULSE 73; RESP 18; TEMP 36.2; O2SAT 98
[2024-09-17 11:42] VITALS: BP 168/107; PULSE 71; RESP 17; TEMP 36.6; O2SAT 99
[2024-09-17] MEDS: ertapenem 1,000 mg SDV 1000 MG IVP (11:48)
[2024-09-18] MEDS: ertapenem 1,000 mg SDV 1000 MG IVP (14:28)
[2024-09-18 14:34] VITALS: BP 121/81; PULSE 65; RESP 18; TEMP 36.4; O2SAT 96
[2024-09-19] MEDS: ertapenem 1,000 mg SDV 1000 MG IVP (14:20)
[2024-09-19 14:35] VITALS: BP 126/84; PULSE 70; RESP 16; TEMP 36.5; O2SAT 95
[2024-09-20 14:03] VITALS: BP 136/76; PULSE 65; RESP 17; TEMP 36.6; O2SAT 98
[2024-09-20] MEDS: ertapenem 1,000 mg SDV 1000 MG IVP (14:09)
[2024-09-21] MEDS: ertapenem 1,000 mg SDV 1000 MG IVP (14:16)
[2024-09-21 14:21] LABS: Basophils # 0.1 10^3/uL (0.0-0.1); Basophils % 0.5 %; Eosinophils # 0.2 10^3/uL (0.0-0.8); Eosinophils % 1.8 %; Hematocrit 41.9 % (37-53); Lymphocytes # 2.3 10^3/uL (0.8-4.8); Lymphocytes % 17.3 %; Mean Corpuscular HGB Conc 34.4 g/dL (30-55); Mean Corpuscular Hemoglobin 32.7 pg (27-33); Mean Platelet Volume 9.1 fL (7.4-10.4); Monocytes % 7.4 %; Neutrophils # 9.66 10^3/uL (1.8-7.7); Neutrophils % 71.7 %; Nucleated Red Blood Cells % 0 %; Platelet Count 276 10^3/cmm (157-399); Red Blood Count 4.41 10^6/uL (3.85-5.65); Red Cell Distribution Width 14.9 % (12.1-15.1); White Blood Count 13.47 10^3/uL (3.29-11.43)
--- NOTE | 2024-09-21 14:31 | PC.NURSE ---
Removed pts PICC line from right upper arm. No infection or redness noted. 45cm catheter removed, intact. Pt tolerated well. No bleeding after removal. Pressure dressing applied. JW
[2024-09-21 14:38] LABS: Blood Urea Nitrogen 12 mg/dL (6-20); Calcium 9.2 mg/dL (8.5-10.5); Carbon Dioxide 25 mmol/L (22-29); Chloride 104 mmol/L (98-107); Glomerular Filtration Rate 141.5 mL/min (90-130); Glucose 143 mg/dL (65-115); Osmolality Calculated 292 mOsm/kg (285-295); Sodium 140 mmol/L (136-145)
== END 2024-09-29 23:59 | disposition home or self-care (01) ==
PROVIDERS: Family Medicine; PCP Nurse Practitioner; Visit Provider Nurse Practitioner
DX: Z53.9 Procedure and treatment not carried out, unspecified reason (principal); A41.51 Sepsis due to Escherichia coli [E. coli]; N39.0 Urinary tract infection, site not specified; Z16.12 Extended spectrum beta lactamase (ESBL) resistance
CPT/HCPCS: 80048; 85025; 96374; J1335

== ENCOUNTER 2024-09-29 13:47 | Outpatient (CLI) | payer MEDICARE, MEDICAID, SELFPAY ==
--- NOTE | 2024-09-29 13:54 | XR_ITS ---
WS: [email or web address] Exam: XR knee RT 3V* [id number] Date/Time of Exam: 09/29/2024 2:00 PM Reason For Exam: M25.50 - Pain in unspecified joint No fracture. Slight narrowing of the medial joint space. Normal soft tissues. No joint effusion. XR/XR knee RT 3V* [id number] IMPRESSION: 1. Slight narrowing of the medial joint space. No joint effusion or fracture. 2. Old fracture deformity of the proximal fibula.
--- NOTE | 2024-09-29 13:54 | XR_ITS ---
WS: [email or web address] Exam: XR knee LT 3V* [id number] Date/Time of Exam: 09/29/2024 2:00 PM Reason For Exam: M25.50 - Pain in unspecified joint No fracture. The joints are preserved. No joint effusion. Benign-appearing small sclerotic lesion in the posterior lateral femur. Soft tissue calcifications which may be secondary to venous insufficienc y. XR/XR knee LT 3V* [id number] IMPRESSION: 1. No fracture or other significant finding.
--- NOTE | 2024-09-29 13:54 | XR_ITS ---
WS: [email or web address] Exam: XR femur RT min 2V* [id number] Date/Time of Exam: 09/29/2024 2:00 PM Reason For Exam: M25.50 - Pain in unspecified joint No fracture noted. Articular relationships are intact. Mild DJD at the hip and knee. Normal soft tiss ues. XR/XR femur RT min 2V* [id number] IMPRESSION: 1. Negative RIGHT femur.
== END 2024-09-29 13:48 | disposition home or self-care (01) ==
LOC: RAD 13:48
PROVIDERS: PCP Nurse Practitioner; Visit Provider Nurse Practitioner
DX: M16.11 Unilateral primary osteoarthritis, right hip (principal); R93.6 Abnormal findings on diagnostic imaging of limbs; M17.11 Unilateral primary osteoarthritis, right knee
CPT/HCPCS: 73552; 73562

== ENCOUNTER 2025-01-08 07:44 | Inpatient (IN) | payer MEDICARE, SELFPAY ==
[2025-01-08] VITALS (59 sets, daily range): BP systolic 97–194; BP diastolic 60–90; PULSE 56–111; RESP 15–21; TEMP 36.7–36.8; O2SAT 92–99; BMI 39.5
--- NOTE | 2025-01-08 07:49 | XR_ITS ---
WS: [email or web address] Exam: XR chest 1V portable [id number] Date/Time of Exam: 01/08/2025 7:57 AM Reason For Exam: dyspnea/cough Comparison 09/11/2024. An ET tube is in place ending about 6 cm above the jim. The lungs are well ventilated and clear. An enteric tube is looped in the stomach and ending in the region of the cardia. Normal cardiomediastinal silhouette. Bony structures appear normal. No pleural effusion. XR/XR chest 1V portable [id number] IMPRESSION: 1. No acute cardiopulmonary finding. 2. ET tube and enteric tube both in satisfactory location.
--- NOTE | 2025-01-08 07:49 | ECG_ITS ---
[facility] Date: 2025-01-08 Pat Name: Jaziel Willis Department: Room: Gender: Male [employer]: : 1970 Requested By: Lemuel Klein Order Number: [id number] Tucker MD: Luciana Whaley M.D. Measurements Intervals [place] Rate: 81 P: 50 TN: 171 QRS: 78 QRSD: 147 T: 40 QT: 398 QTc: 462 Interpretive Statements SINUS RHYTHM POSSIBLE LEFT ATRIAL ENLARGEMENT [-0.1mV P-WAVE IN V1/V2] RIGHT BUNDLE BRANCH BLOCK [120+ ms QRS DURATION, UPRIGHT V1, 40+ ms S IN I/aVL/V4/V5/V6] Compared to ECG 09/07/2024 11:57:48 No significant changes Electronically Signed On 01-08-2025 15:03:36 CDT by Luciana Whaley M.D. [email or web address]
[2025-01-08] MEDS: propofol 1,000 MG/100 ML INJ 32.66 MG IV ×4 (07:57→20:15)
[2025-01-08] MEDS: phenytoin 1,000 MG in sodium chloride 0.9% (100 ml) 100 ML, non-DEHP filter tubing onc ... 270 MG IV (08:00)
[2025-01-08 08:15] LABS: ABG PCO2 52.1 mmHg (35-45); Arterial Blood Gas Hematocrit 55.7 % (42-52); Base Excess ABG -10.7 mmol/L (-2.0-2.0); Blood Gas Allen Test Pos; Blood Gas Sample Type Arterial; HCO3 ABG 18.6 mmol/L (22-26); HGB O2 Sat 99.1 % (95-100); Ionized Calcium Level - ABG 1.3 mmol/L (1.1-1.4); Methemoglobin 0.1 % (0.4-1.5); Oxygen Saturation ABG > 99.1; Potassium Level - ABG 3.7 mmol/L (3.5-5.0); Total Hemoglobin 18.2 g/dL (14-18)
[2025-01-08 08:16] LABS: ABG PH Result 7.16 (7.35-7.45); Alveolar-Arterial Oxygen Gradi 45.1 mmHg (5-10); Blood Gas Operator Identificat MONRO; Blood Gas Sample Site Radial, left; Blood Gas Tidal Volume 0.55; Oxygen Device VENT; PO2 FiO2 Ratio Arterial Blood 295
--- NOTE | 2025-01-08 08:19 | ED_ITS ---
HPI - Seizure 2 General: Chief Complaint: Seizure Stated Complaint: sob Time Seen by Provider: 01/08/25 07:49 History of Present Illness: HPI Narrative: 54-year-old male with a known history of seizures presents with report of persistent seizures at the scene was given Ativan x 2 and then an RSI was done with Versed rocuronium and ketamine. Patient unresponsive on arrival. EMS reports they believe he aspirated they did place an OG tube but he had some gastric contents with suctioning after intubation. He is currently on a ventilator vital signs are stable blood pressure is moderately elevated. Seizure History: Yes Related Data Home Medications ?Medication ?Instructions ?Recorded ?Confirmed Compression hose 07/13/21 01/08/25 lacosamide 50 mg tablet 200 mg PO BID 09/07/2401/08 L.acidop,casei,lactis,rham-B.lact,kory 1 cap PO BID 08/2301/08/25 625 mg (10 billion cell) capsule (Advanced Probiotic) Previous Rx's ?Medication ?Instructions ?Recorded Compression hose #1 ea 09/21/20 Diabetic Shoes with 3 pairs of #1 ea 03/23/22 inserts levetiracetam 1,000 mg tablet 2,000 mg (2 x 1,000 mg) PO BID 07/20/24 #120 tabs phenytoin 50 mg chewable tablet 250 mg (5 x 50 mg) PO Q8H #450 tabs 07/20/24 trazodone 100 mg tablet 100 mg PO BEDTIME #30 tabs 0 09/28/24 atorvastatin 40 mg tablet 40 mg PO BEDTIME 30 days #30 tabs 01/03/25 Allergies Allergy/AdvReac Type Severity Reaction Status Date / Time No Known Allergies Allergy Verified 09/28/24 14:38 Review of Systems 2 General: Reports: ROS unobtainable due to endotracheal tube PFSH ED 2 PFSH: Medical History C. difficile colitis Symptomatic cholelithiasis Status epilepticus Generalized seizure Developmental disorder Frontal lobe epilepsy Cellulitis of oral soft tissues Endotracheally intubated Status epilepticus Essential hypertension Generalized epilepsy Morbid obesity Hypertension Intellectual disability Peripheral vascular disease Venous stasis dermatitis Leukocytosis Seizure Surgical History History of laparoscopic cholecystectomy History of total colectomy August 2022 S/P vein stripping Family History Father Cancer Lung cancer Mother CAD (coronary artery disease) Other Diabetes Heart disease Hypertension Denies family history of Stroke Social History Smoking and tobacco/nicotine status: never used tobacco/nicotine Second hand smoke exposure: No Alcohol intake: never Substance/Drug Use: never Adopted: No Caregiver/support person: Yes Lives independently: No Household members: family Housing: House Marital status: Single Number of children: 0 service: No Current occupational status: disabled Current occupation: disabled Do you think of yourself as: Straight/Heterosexual Current gender identity: Male Physical Exam 2 HENMT: COMMON NORMALS: normocephalic and atraumatic HEAD & SCALP: n ormocephalic and atraumatic Resp: COMMON NORMALS: normal respiratory effort, No retractions, No use of accessory muscles and clear to auscultation bilaterally AUSCULTATION: clear to auscultation bilaterally Cardio: COMMON NORMALS: regular rate, regular rhythm and No murmurs present (Cardio) RATE: regular rate RHYTHM: regular rhythm GI: COMMON NORMALS: Soft to palpation and No hepatosplenomegaly present A USCULTATION: Yes normoactive bowel sounds PALPATION: Yes Soft to palpation, No Tenderness to palpation present (GI), No Guarding due to palpation present (GI) and Yes No hepatosplenomegaly present Extremity: COMMON NORMALS: normal to inspection, capillary refill normal, no clubbing, cyanosis or edema, no calf tenderness and no pedal edema Skin: COMMON NORMALS: no rashes or lesions noted GENERAL SKIN EXAM: no rashes or lesions noted Procedures Central Line Placement Right IJ: Time Out Performed: Yes Patient Placed on Monitor/Pulse Ox: Yes Prep: mask, gown and gloves Central Line Prep: Chlorhexidine scrub Local Anesthetic: lidocaine 1% Amount of anesthesia used (mL): 3 Ultrasound Used for Placement: Yes Central Line Lumen Inserted: triple Post Procedure: sutured in place, good blood return, all ports aspirated, flushed, capped and sterile dressing applied Post Procedure X-Ray: tip of catheter in good position Patient Tolerated Procedure: well Complications: none Course 2 Vital Signs: Vital signs: Vital Signs Temperature 98.1 F 01/08/25 08:08 Pulse Rate 63 01/08/25 12:09 Respiratory Rate 15 01/08/25 11:11 Blood Pressure 123/82 01/08/25 12:09 Pulse Oximetry 98 01/08/25 12:09 Oxygen Delivery Me thod Mechanical Ventil ation 01/08/25 12:09 Fraction of Inspir ed Oxygen 35 01/08/25 11:11 MDM - Seizure MDM Narrative Medical decision making narrative: On arrival patient is intubated and unresponsive due to being paralyzed. Report of seizures has a known history of seizures. Labs and imaging ordered. Started on propofol. Due to difficulty with access in the room medications ordered patient had a central line placed in the right IJ without complication see note above. We did advance the tube slightly on the ET tube his first blood gas was showed considerable acidosis it began to improve 1 hour after on repeat still has time for some improvement. Concerned about aspiration pneumonia have started Zosyn discussed with neurology they are well aware of the patient's history and are comfortable maintaining him here discussed with hospitalist orders written for admission to ICU Lab Data 01/08/25 08:37 01/08/25 08:37 Labs: Radiology Impressions Head CT 01/08/25 10:15 IMPRESSION: 1. No acute intracranial hemorrhage or edema. 2. Mild cerebral atrophy and small vessel disease. 3. Possible meningioma towards the vertex is not as well visualized on today's exam. 4. Patient is intubated. Chest X-Ray 01/08/25 11:58 IMPRESSION: 1. Right-sided IJ catheter probably ending at the cavoatrial junction. The chest is otherwise unchanged since the last exam. Laboratory Results WBC 25.00 10^3/uL (3.29-11.43) H 01/08/25 08:37 RBC 5.53 10^6/uL (3.85-5.65) 01/08/25 08:37 Hgb 17.60 g/dL (11.27-16.99) H 01/08/25 08:37 Hct 51.9 % (37-53) 01/08/25 08:37 MCV 93.9 fl (82-101) 01/08/25 08:37 MCH 31.8 pg (27-33) 01/08/25 08:37 MCHC 33.9 g/dL (30-55) 01/08/25 08:37 RDW 15.0 % (12.1-15.1) 01/08/25 08:37 Plt Count 279 10^3/cmm (157-399) 01/08/25 08:37 MPV 9.7 fL (7.4-10.4) 01/08/25 08:37 Neut % (Auto) 85.0 % 01/08/25 08:37 Lymph % (Auto) 5.2 % 01/08/25 08:37 Winston % (Auto) 4.7 % 01/08/25 08:37 Eos % (Auto) 1.2 % 01/08/25 08:37 Baso % (Auto) 0.5 % 01/08/25 08:37 Neut # (Auto) 21.28 10^3/uL (1.8-7.7) H 01/08/25 08:37 Lymph # (Auto) 1.3 10^3/uL (0.8-4.8) 01/08/25 08:37 Winston # (Auto) 1.2 10^3/uL (0.2-0.9) H 01/08/25 08:37 Eos # (Auto) 0.3 10^3/uL (0.0-0.8) 01/08/25 08:37 Baso # (Auto) 0.1 10^3/uL (0.0-0.1) 01/08/25 08:37 Nucleated RBC % (auto) 0 % 01/08/25 08:37 Nucleated RBCs # 0.0 /100WBC 01/08/25 08:37 Specimen Type Arterial 01/08/25 09:30 Sample Site Radial, right 01/08/25 09:30 ABG pH 7.28 (7.35-7.45) L 01/08/25 09:30 ABG pCO2 42.0 mmHg (35-45) 01/08/25 09:30 ABG pO2 88.1 mmHg (80.0-100.0) 01/08/25 09:30 ABG PO2/FiO2 Ratio 293 01/08/25 09:30 ABG HCO3 19.8 mmol/L (22-26) L 01/08/25 09:30 ABG O2 Saturation 96.9 01/08/25 09:30 ABG Base Excess -6.7 mmol/L (-2.0-2.0) L 01/08/25 09:30 Ricardo Test N/a 01/08/25 09:30 A-a O2 Gradient 9.4 mmHg (5-10) 01/08/25 09:30 Hematocrit 50.2 % (42-52) 01/08/25 09:30 Hgb O2 Saturation 95.6 % (95-100) 01/08/25 09:30 Carboxyhemoglobin 1.3 %THgb (0.4-20.1) 01/08/25 09:30 Methemoglobin 0.0 % (0.4-1.5) L 01/08/25 09:30 Total Hemoglobin 16.4 g/dL (14-18) 01/08/25 09:30 Sodium 138.0 mmol/L (131-143) 01/08/25 09:30 Potassium 3.9 mmol/L (3.5-5.0) 01/08/25 09:30 Glucose 155.0 mg/dL (70-115) H 01/08/25 09:30 Ionized Calcium 1.2 mmol/L (1.1-1.4) 01/08/25 09:30 O2 Delivery Device Vent 01/08/25 09:30 FiO2 30.0 % 01/08/25 09:30 Tidal Volume 0.55 01/08/25 09:30 PEEP 5.0 cmH20 01/08/25 09:30 Fish Roe Technician ID Monro 01/08/25 09:30 Sodium 135 mmol/L (136-145) L 01/08/25 08:37 Potassium 4.1 mmol/L (3.5-5.1) 01/08/25 08:37 Chloride 95 mmol/L (98-107) L 01/08/25 08:37 Carbon Dioxide 17 mmol/L (22-29) L 01/08/25 08:37 Anion Gap 27.1 (5-19) H 01/08/25 08:37 BUN 12 mg/dL (6-20) 01/08/25 08:37 Creatinine 1.2 mg/dL (0.7-1.2) 01/08/25 08:37 GFR Calculation 63.3 mL/min (90-130) L 01/08/25 08:37 Glucose 156 mg/dL (65-115) H 01/08/25 08:37 Calculated Osmolality 283 mOsm/kg (285-295) L 01/08/25 08:37 Lactic Acid 6.4 mmol/L (0.5-2.2) H* 01/08/25 08:37 Calcium 9.8 mg/dL (8.5-10.5) 01/08/25 08:37 Magnesium 2.5 mg/dL (1.7-2.3) H 01/08/25 08:37 Total Bilirubin 0.4 mg/dL (0.15-1.2) 01/08/25 08:37 AST 31 U/L (0-40) 01/08/25 08:37 ALT 27 U/L (0-41) 01/08/25 08:37 Alkaline Phosphatase 175 U/L (40-130) H 01/08/25 08:37 Total Protein 8.8 g/dL (6.6-8.7) H 01/08/25 08:37 Albumin 4.8 g/dL (3.5-5.2) 01/08/25 08:37 Globulin 4.0 g/dL (1.3-4.6) 01/08/25 08:37 Urine Color Yellow (Yellow) 01/08/25 10:20 Urine Appearance Cloudy (CLEAR) A 01/08/25 10:20 Urine pH 5.5 (5-7) 01/08/25 10:20 Ur Specific Shanks 1.014 (1.005-1.030) 01/08/25 10:20 Urine Protein 2+ (Negative) A 01/08/25 10:20 Urine Glucose (UA) Negative (Normal) 01/08/25 10:20 Urine Ketones Negative (Negative) 01/08/25 10:20 Urine Blood Trace (Negative) A 01/08/25 10:20 Urine Nitrate Positive (Negative) A 01/08/25 10:20 Urine Bilirubin Negative (Negative) 01/08/25 10:20 Urine Urobilinogen 1.0 mg/dL (Negative) 01/08/25 10:20 Ur Leukocyte Esterase 2+ (Negative) A 01/08/25 10:20 Urine RBC 3-5 /hpf (0-2) 01/08/25 10:20 Urine WBC 51-100 /hpf (0-5) H 01/08/25 10:20 Ur Squamous Epith Cells 6-10 /hpf (0-5) 01/08/25 10:20 Amorphous Sediment Not Reportable 01/08/25 10:20 Urine Bacteria 4+ /hpf (NONE) H 01/08/25 10:20 Hyaline Casts 22.33 /lpf 01/08/25 10:20 Phenytoin 8.0 ug/mL (10-20) L 01/08/25 08:37 Influenza A (PCR) Negative (Negative) 01/08/25 10:20 Influenza Type B (PCR) Negative (Negative) 01/08/25 10:20 RSV (PCR) Negative (Negative) 01/08/25 10:20 SARS-CoV-2 (PCR) Negative (Negative) 01/08/25 10:20 All radiology interpretation(s) finalized by discharge Critical Care Time 2 Critical Care Time: Critical Care Time: Yes Total Critical Care Time: 35 Attestation: The high probability of a clinically significant, sudden or life threatening deterioration of the patient's cardiovascular respiratory neurologic system(s) required my full and direct attention, intervention and personal management. The critical care time is as shown. This time is in addition to time spent performing any reported procedures but includes the following: [x] Data and vital sign review and interpretation [x] Patient assessment, examination and intervention [x] Documentation [x] Medication orders and management Discharge Plan Discharge Patient Disposition: Admitted As Inpatient Admit Provider: Osmar Jimenez Clinical Impression: Intractable seizure disorder, Intellectual disability, Aspiration pneumonitis Condition: Stable Coding Level of Care Code ED Shuttle Final Inspector for Antonio Avila
[2025-01-08 08:44] LABS: Basophils # 0.1 10^3/uL (0.0-0.1); Basophils % 0.5 %; Eosinophils # 0.3 10^3/uL (0.0-0.8); Eosinophils % 1.2 %; Hematocrit 51.9 % (37-53); Lymphocytes # 1.3 10^3/uL (0.8-4.8); Lymphocytes % 5.2 %; Mean Corpuscular HGB Conc 33.9 g/dL (30-55); Mean Corpuscular Hemoglobin 31.8 pg (27-33); Mean Corpuscular Volume 93.9 fl (82-101); Mean Platelet Volume 9.7 fL (7.4-10.4); Monocytes # 1.2 10^3/uL (0.2-0.9); Monocytes % 4.7 %; Neutrophils # 21.28 10^3/uL (1.8-7.7); Nucleated Red Blood Cells % 0 %; Platelet Count 279 10^3/cmm (157-399); Red Blood Count 5.53 10^6/uL (3.85-5.65)
[2025-01-08] MEDS: lacosamide 100 MG in sodium chloride 0.9% 50 ML 120 MG IV ×2 (09:08→16:25)
[2025-01-08 09:14] LABS: Alanine Aminotransferase 27 U/L (0-41); Albumin Level 4.8 g/dL (3.5-5.2); Alkaline Phosphatase 175 U/L (40-130); Anion Gap 27.1 (5-19); Aspartate Amino Transferase 31 U/L (0-40); Blood Urea Nitrogen 12 mg/dL (6-20); Calcium 9.8 mg/dL (8.5-10.5); Carbon Dioxide 17 mmol/L (22-29); Chloride 95 mmol/L (98-107); Creatinine Clr Calc Pharmacy 103.0821; Glomerular Filtration Rate 63.3 mL/min (90-130); Glucose 156 mg/dL (65-115); Magnesium 2.5 mg/dL (1.7-2.3); Osmolality Calculated 283 mOsm/kg (285-295); Potassium 4.1 mmol/L (3.5-5.1); Sodium 135 mmol/L (136-145); Total Bilirubin 0.4 mg/dL (0.15-1.2); Total Protein 8.8 g/dL (6.6-8.7)
[2025-01-08] MEDS: sodium chloride 0.9% 1,000 ML 999 ML IV (09:23)
--- NOTE | 2025-01-08 09:26 | PC.PHAR ---
verified medications with [facility] [place] . Pharmacy states Patient has rx for Thyroid medication but hasn't filled since August .
[2025-01-08] MEDS: levETIRAcetam 2,000 MG/200 ML PREMIX 400 MG IV (09:31)
[2025-01-08 09:43] LABS: ABG PH Result 7.28 (7.35-7.45); Alveolar-Arterial Oxygen Gradi 9.4 mmHg (5-10); Arterial Blood Gas Hematocrit 50.2 % (42-52); Base Excess ABG -6.7 mmol/L (-2.0-2.0); Blood Gas Operator Identificat MONRO; Blood Gas Sample Site Radial, right; Blood Gas Sample Type Arterial; Blood Gas Tidal Volume 0.55; Carboxyhemoglobin 1.3 %THgb (0.4-20.1); HCO3 ABG 19.8 mmol/L (22-26); HGB O2 Sat 95.6 % (95-100); Ionized Calcium Level - ABG 1.2 mmol/L (1.1-1.4); Oxygen Device VENT; Oxygen Saturation ABG 96.9; PO2 ABG 88.1 mmHg (80.0-100.0); PO2 FiO2 Ratio Arterial Blood 293; Potassium Level - ABG 3.9 mmol/L (3.5-5.0); Total Hemoglobin 16.4 g/dL (14-18)
--- NOTE | 2025-01-08 09:58 | P.CONIM_ITS ---
Providers/Reason For Consult 2 Consulting Physician/Specialty*: Ar Atkinson MD neurology and epilepsy Reason for Consult*: Status epilepticus in patient with history of intractable epilepsy requiring intubation Primary Care Provider: NIRANJAN Drummond History of Present Illness History of Present Illness Jaziel Willis is a 54 year old male with a history of intractable epilepsy and developmental delay followed by Dr. Forrester. The patient presents to the emergency department room #15 room intubated on the ventilator. The patient was reported to experience several seizures prior to arrival and was given ketamine and rocuronium. Since the ER physician was not sure if the patient was continuing to seize, neurology consult was obtained. Patient has a history of frontal lobe seizures he is on multiple seizure medications he had several episodes in the past and has been admitted after status epilepticus in the past. There was no family available in the emergency room. Currently the patient is on IV propofol. He was given IV Keppra, IV phenytoin, and IV Vimpat with plans to continue Lamictal via NG tube. At the bedside in the emergency department room #15 patient intubated and sedated. Clinically he does not appear to be experiencing active seizures but due to rocuronium and IV propofol subclinical status epilepticus and not be excluded. Patient will be admitted to the intensive care unit. I contacted the nuclear fuel processing technician who will plan to do a bedside portable EEG on 01/08/2025 to assess for subclinical status epilepticus. Drug allergies: None Current medications: Lacosamide 300 mg p.o. twice daily Lamictal 200 mg p.o. twice daily Keppra 2000 mg p.o. twice daily Dilantin 50 mg Infatabs chewable tablets 250 mg every 8 hours Trazodone 100 mg p.o. nightly Synthroid 25 mcg p.o. daily Past medical history: Intractable epilepsy Intellectual disability Thyroid nodule C. difficile colitis Hyponatremia Sepsis Aspiration pneumonia Cystitis Ileostomy Pseudomembranous colitis Hypokalemia Peripheral vascular disease Venous insufficiency of the lower extremities Hypertriglyceridemia Hypocalcemia Habits: None Family history: Negative for seizures Review of Systems 2 General: Reports: ROS unobtainable due to endotracheal tube and ROS unobtainable due to medical condition Medications/Allergies Home Medications ?Medication ?Instructions ?Recorded ?Confirmed ?Last Taken ?Type Compression hose #1 ea 09/21/20 01/08/25 Unkn own Rx Compression hose 07/13/21 01/08/25 Unknown H istory Diabetic Shoes with 3 pairs of #1 ea 03/23/22 01/08/25 Unknown Rx inserts levetiracetam 1,000 mg tablet 2,000 mg (2 x 1,000 mg) PO BID 07/20/24 01/08/25 Unknown Rx #120 tabs phenytoin 50 mg chewable tablet 250 mg (5 x 50 mg) PO Q8H #450 tabs 07/20/24 01/08/25 Unknown Rx lacosamide 50 mg tablet 200 mg PO BID 09/07/2401/08 Unknown History trazodone 100 mg tablet 100 mg PO BEDTIME #30 tabs 0 09/28/24 01/08/25 Unknown Rx atorvastatin 40 mg tablet 40 mg PO BEDTIME 30 days #30 tabs 01/03/25 01/08/25 Unknown Rx L.acidop,casei,lactis,rham-B.lact,kory 1 cap PO BID 08/2301/08/25 Unknown History 625 mg (10 billion cell) capsule (Advanced Probiotic) Allergies Allergy/AdvReac Type Severity Reaction Status Date / Time No Known Allergies Allergy Verified 09/28/24 14:38 Current Medications Generic Name Dose Route Start Last Admin Trade Name Freq PRN Reason Stop Dose Admin Lacosamide 100 mg/ Sodium 60 mls @ 120 mls/hr 01/08/25 08:00 01/08/25 09:35 Chloride IV Infused Q12H OTIS Infusion Propofol 1,000 mg in 100 mls @ 0 mls/hr 01/08/25 08:00 01/08/25 07:57 Diprivan IV 40 mcg/kg/min .Q0M OTIS 32.66 mls/hr Protocol Administration Per Protocol PFSH Acute 2 PFSH: Medical History C. difficile colitis Symptomatic cholelithiasis Status epilepticus Generalized seizure Developmental disorder Frontal lobe epilepsy Cellulitis of oral soft tissues Endotracheally intubated Status epilepticus Essential hypertension Generalized epilepsy Morbid obesity Hypertension Intellectual disability Peripheral vascular disease Venous stasis dermatitis Leukocytosis Seizure Surgical History History of laparoscopic cholecystectomy History of total colectomy August 2022 S/P vein stripping Family History Father Cancer Lung cancer Mother CAD (coronary artery disease) Other Diabetes Heart disease Hypertension Denies family history of Stroke Social History Smoking and tobacco/nicotine status: never used tobacco/nicotine Second hand smoke exposure: No Alcohol intake: never Substance/Drug Use: never Adopted: No Caregiver/support person: Yes Lives independently: No Household members: family Housing: House Marital status: Single Number of children: 0 service: No Current occupational status: disabled Current occupation: disabled Do you think of yourself as: Straight/Heterosexual Current gender identity: Male Vitals/I&O/Wt Last Vital Signs Temp 98.1 F 01/08/25 08:08 Pulse 111 H 01/08/25 08:08 Resp 21 H 01/08/25 08:33 BP 194/88 01/08/25 08:08 Pulse Ox 98 01/08/25 08:08 O2 Del Method Nasal Cannula 01/08/25 08:48 01/07/25 01/08/25 01/08/25 22:59 06:59 14:59 Intake Total 180 / 180 Balance 180 / 180 Weight last 48 hrs Weight 300 lb Physical Exam 2 Narrative: The patient is intubated and sedated on intravenous propofol. The patient is in no apparent distress. Pupils 3 mm and difficult to determine if the pupils are round reactive to light. Extraocular movements reveals positive doll's eyes. Cranial nerves II through XII revealed no obvious facial weakness. Patient is intubated. Motor testing difficult to assess secondary to paralytic agent and sedation with IV propofol. Deep tendon reflex revealed extensor plantar responses bilaterally. There was no clonus. Sensory examination difficult to determine secondary to intravenous sedation. Throat clear with intubation tube. Lungs clear. Heart regular rhythm and rate. Extremities were negative for cyanosis. Data 01/08/25 08:37 01/08/25 08:37 Micro: Microbiology 01/08/25 09:03 Blood Culture - Preliminary Blood SPECIMEN COLLECTED 01/08/25 08:58 Blood Culture - Preliminary Blood SPECIMEN COLLECTED A&P Assessment and plan (1) Status epilepticus: Impression: 1. Status epilepticus requiring intubation and sedation with IV propofol 2. Intractable epilepsy Plan: 1. Obtain stat noncontrast head CT to assess for hemorrhage and stroke 2. Agree with changing oral anticonvulsant medication to IV (Dilantin, Vimpat, Keppra) 3. Continue IV Dilantin 100 mg IV every 8 hours 4. Continue Vimpat 100 mg IV every 8 hours 5. Continue Keppra 500 mg IV every 8 hours 6. Trough Dilantin level, Vimpat level, Keppra level, and albumin on 01/09/2025 7. I have asked the nuclear fuel processing technician to perform portable EEG study on 01/08/2025 to assess for subclinical seizures/status epilepticus 8. Agree with IV propofol 9. Continue seizure precautions per hospital protocol and per state law 10. Fall precautions 11. Will adjust anticonvulsant medications as needed/tolerated 12. Recommend starting thiamine 100 mg IV daily (2) Intractable epilepsy: PDMP PDMP Reviewed: Not Reviewed Consult Attestations 2 Medical Necessity Statement: The patient was evaluated by neurology for status epilepticus and recurrent seizures requiring intubation and sedation on IV propofol Coding Level of Care Code 40955 Diagnoses Status epilepticus G40.901 Partial idiopathic epilepsy with seizures of localized onset, intractable, with status epilepticus G40.011 Epilepsy type: partial idiopathic, localized onset Status epilepticus: with status epilepticus
[2025-01-08 10:09] LABS: Lactic Sepsis W/Reflex 6.4 mmol/L (0.5-2.2)
--- NOTE | 2025-01-08 10:15 | CT_ITS ---
WS: [id number] CT HEAD NONCONTRAST HISTORY: Seizures, nonresponsive TECHNIQUE: Contiguous axial imaging performed through the brain. Bone and soft tissue windows. Sagittal and coronal reformats reviewed. All CT scans at [facility] use at least one of these dose optimization techniques: automated exposure control; mA and/or kV adjustment per patient size (includes targeted exams where dose is matched to clinical indication); or iterative reconstruction. DLP: 1485.87 mGy.cm COMPARISON: 09/11/2024 No acute intracranial hemorrhage, midline shift or mass effect. Mild cerebral atrophy and small vessel disease. No atrophy or prior infarcts or herniation. Dural thickening towards the vertex is not as well visualized today as on the prior study. Ventricles: Normal size with no hydrocephalus. No inferior displacement the cerebellar tonsils. Paranasal sinuses: Mucous retention cyst in the RIGHT maxillary sinus. Small mucous retention cyst in the LEFT sphenoid sinus. Mastoid air cells: Cerumen in the external auditory canals. Calvarium and scalp: Skull is intact with no soft tissue edema or swelling. CT/CT head wo con* [id number] IMPRESSION: 1. No acute intracranial hemorrhage or edema. 2. Mild cerebral atrophy and small vessel disease. 3. Possible meningioma towards the vertex is not as well visualized on today's exam. 4. Patient is intubated.
[2025-01-08 10:42] LABS: Bilirubin Urine Negative (Negative); Blood Urine Trace (Negative); Glucose Urine UA Negative (Normal); Ketones Urine Negative (Negative); Leukocyte Esterase Urine 2+ (Negative); Nitrate Urine Positive (Negative); Protein Urine 2+ (Negative); Specific Gravity, Urine 1.014 (1.005-1.030); Urine Appearance Cloudy (CLEAR); Urine Color Yellow (Yellow); pH Urine 5.5 (5-7)
[2025-01-08] MEDS: piperacillin-tazobactam 3.375 GM in sodium chloride 0.9% (plus) 50 ML IV ×2 (10:43→15:13)
[2025-01-08 10:47] LABS: Add Urine Microscopic? YES; Bacteria Urine 4+ /hpf; Hyaline Casts Urine 22.33 /lpf; WBC Urine 51-100 /hpf (0-5)
[2025-01-08 11:13] LABS: Reflex Lactate Order REFLEX LACTIC ORDERD
[2025-01-08 11:16] LABS: Add Urine Culture? Yes
[2025-01-08 11:18] LABS: Influenza A NEGATIVE (Negative); Influenza B NEGATIVE (Negative); Respiratory Syncytial Virus Ce NEGATIVE (Negative); SARS-CoV-2 PCR NEGATIVE (Negative)
--- NOTE | 2025-01-08 11:28 | P.HP_ITS ---
Providers/Chief Complaint 2 Admitting Physician: Osmar Jimenez Primary Care Provider: Candi Latif, NIRANJAN Chief Complaint: sob History of Present Illness 54-year-old gentleman with history of developmental disorder dependent on care, seizure disorder, partial colectomy, C. difficile colitis, HTN, PVD, obesity, developed a seizure today, found in persistent seizure by EMS on arrival, was given Ativan, intubated with ketamine, Versed. EMS believing he had aspirated as well with suctioning of gastric secretions from ET tube. In ER without further seizures, was started on propofol for sedation, continuing on mechanical ventilatory support. Was given IV Keppra, phenytoin and Vimpat, pending Lamictal via OGT. Received further pulmonary toilet. He has been seen by neurology with further plans for EEG. Review of Systems 2 General: Reports: ROS unobtainable due to endotracheal tube and ROS unobtainable due to mental status Medications/Allergies Home Medications ?Medication ?Instructions ?Recorded ?Confirmed ?Last Taken ?Type Compression hose #1 ea 09/21/20 01/08/25 Unkn own Rx Compression hose 07/13/21 01/08/25 Unknown H istory Diabetic Shoes with 3 pairs of #1 ea 03/23/22 01/08/25 Unknown Rx inserts levetiracetam 1,000 mg tablet 2,000 mg (2 x 1,000 mg) PO BID 07/20/24 01/08/25 Unknown Rx #120 tabs phenytoin 50 mg chewable tablet 250 mg (5 x 50 mg) PO Q8H #450 tabs 07/20/24 01/08/25 Unknown Rx lacosamide 50 mg tablet 200 mg PO BID 09/07/2401/08 Unknown History trazodone 100 mg tablet 100 mg PO BEDTIME #30 tabs 0 09/28/24 01/08/25 Unknown Rx atorvastatin 40 mg tablet 40 mg PO BEDTIME 30 days #30 tabs 01/03/25 01/08/25 Unknown Rx L.acidop,casei,lactis,rham-B.lact,kory 1 cap PO BID 08/2301/08/25 Unknown History 625 mg (10 billion cell) capsule (Advanced Probiotic) Allergies Allergy/AdvReac Type Severity Reaction Status Date / Time No Known Allergies Allergy Verified 09/28/24 14:38 PFSH Acute 2 PFSH: Medical History C. difficile colitis Symptomatic cholelithiasis Status epilepticus Generalized seizure Developmental disorder Frontal lobe epilepsy Cellulitis of oral soft tissues Endotracheally intubated Status epilepticus Essential hypertension Generalized epilepsy Morbid obesity Hypertension Intellectual disability Peripheral vascular disease Venous stasis dermatitis Leukocytosis Seizure Surgical History History of laparoscopic cholecystectomy History of total colectomy August 2022 S/P vein stripping Family History Father Cancer Lung cancer Mother CAD (coronary artery disease) Other Diabetes Heart disease Hypertension Denies family history of Stroke Social History Smoking and tobacco/nicotine status: never used tobacco/nicotine Second hand smoke exposure: No Alcohol intake: never Substance/Drug Use: never Adopted: No Caregiver/support person: Yes Lives independently: No Household members: family Housing: House Marital status: Single Number of children: 0 service: No Current occupational status: disabled Current occupation: disabled Do you think of yourself as: Straight/Heterosexual Current gender identity: Male Vitals/I&O/Wt Last Vital Signs Temp 98.1 F 01/08/25 08:08 Pulse 67 01/08/25 10:46 Resp 18 01/08/25 09:40 BP 125/84 01/08/25 10:46 Pulse Ox 97 01/08/25 10:46 O2 Del Method Mechanical Ventilation 01/08/25 10:46 01/07/25 01/08/25 01/08/25 22:59 06:59 14:59 Intake Total 380 / 380 Balance 380 / 380 Weight last 48 hrs Weight 136.078 kg Physical Exam 2 Const: GENERAL APPEARANCE: patient mechanically ventilated HENMT: COMMON NORMALS: oropharynx normal Neck/C-Spine: COMMON NORMALS: no JVD Resp: COMMON NORMALS: normal respiratory effort OTHER: Coarse breath sounds Cardio: COMMON NORMALS: no JVD, regular rhythm, S1 normal heart sound present, S2 normal heart sound present and No murmurs present (Cardio) RHYTHM: regular rhythm HEART SOUNDS: S1 normal heart sound present and S2 normal heart sound present GI: COMMON NORMALS: Normal to inspection, nondistended, normoactive bowel sounds present and Soft to palpation PALPATION: Yes Soft to palpation Extremity: COMMON NORMALS: no joint enlargement and no pedal edema Skin: NARRATIVE SKIN EXAM: Bilateral lower extremity chronic stasis dermatitis, lichenification. Patches of mild erythema without suggestion of cellulitis. No weeping. Data 01/08/25 08:37 01/08/25 08:37 Micro: Microbiology 01/08/25 08:55 Gram Stain - Final Sputum - Endotracheal Tube Aspirate 01/08/25 09:03 Blood Culture - Preliminary Blood SPECIMEN COLLECTED 01/08/25 08:58 Blood Culture - Preliminary Blood SPECIMEN COLLECTED A&P Assessment and plan (1) Status epilepticus: Reviewed vitals, CBC, ABG, CMP, lactic acid, UA, phenytoin level, influenza, COVID, RSV swab, chest x-ray, head CT, neurology note, ER provider note, discussed with ER provider. No obvious seizure-like activity currently. Neurology arranging for EEG to assess for subclinical seizures/ongoing status Plavix. He has received in addition to Ativan and then Versed, Keppra, phenytoin, Vimpat, to be continued per neurology recommendations. Continue on IV propofol for sedation with mechanical ventilation. His family were in the waiting room, however, came out to speak with him today had stepped away. PPI prophylaxis, Lovenox DVT prophylaxis. (2) Aspiration pneumonia: With suspected aspiration secondary to seizure, with section of gastric secretions from ET tube. Underwent further suctioning in ER. Respiratory assess and treat, continue ventilatory support, pulmonary toilet. Zosyn. Monitor for risk of recurrence of C. difficile. Cytopenia. Kidney injury. Monitor oxygenation. With leukocytosis 25. Wean off ventilatory support as tolerating. (3) UTI (urinary tract infection): 51-100 WBC in urine. Empirically on Zosyn. Follow-up urine culture. Plan History of C. difficile colitis Chronic venous stasis HTN: Monitor blood pressures Developmental disorder Unremarkable problems PDMP PDMP Reviewed: Not Reviewed Attestations 2 Medical Necessity Statement*: Admission over 2 midnights dissipated for assessment management following status epilepticus with ongoing encephalopathy, assessment for possible ongoing seizure, treatment of aspiration pneumonia, UTI. Coding Level of Care Code Critical Care >/= 30 minutes Critical care time (in minutes): 40 The high probability of a clinically significant, sudden or life threatening deterioration, as referenced in this documentation, required my full and direct attention, intervention and personal management. The critical care time shown is in addition to time spent performing any reported separately billable procedures and includes the following: [x] Data and vital sign review and interpretation [x ] Patient assessment, examination and intervention [x] Medication orders and management [x] Patient/Family updates as able [x] Care Coordination and Documentation. Diagnoses Status epilepticus G40.901 Aspiration pneumonia J69.0 UTI (urinary tract infection) N39.0
--- NOTE | 2025-01-08 11:58 | XR_ITS ---
WS: [id number] Exam: XR chest 1V portable [id number] Date/Time of Exam: 01/08/2025 11:59 AM Reason For Exam: CENTRAL LINE PLACEMENT Comparison 01/08/2025. 8:35 a.m. A RIGHT IJ catheter has been placed and ends at the cavoatrial junction. The lungs remain clear and fully inflated. ET tube ends about 5 cm above the jim. Enteric tube looped in the gastric cardia. Bony structures are intact XR/XR chest 1V portable [id number] IMPRESSION: 1. Right-sided IJ catheter probably ending at the cavoatrial junction. The ches t is otherwise unchanged since the last exam.
[2025-01-08 12:11] LABS: Lactic Acid level (Lactate) 2.3 mmol/L (0.5-2.2)
[2025-01-08] MEDS: thiamine 100 mg/mL 2mL SDV IVP (12:58)
[2025-01-08] MEDS: enoxaparin 40 mg/0.4 mL Syringe SUBCUT (12:58)
--- NOTE | 2025-01-08 13:03 | PC.NURSE ---
Patient arrived to ICU from Er at 1232. Intubated no family bedside at this time
[2025-01-08] MEDS: levETIRAcetam 500 MG/100 ML PREMIX 400 MG IV (15:10)
[2025-01-08] MEDS: phenytoin 100 MG in sodium chloride 0.9% 20 ML, non-DEHP filter tubing onc 1 EACH 104 MG IV (16:05)
--- NOTE | 2025-01-08 17:15 | P.PCN_ITS ---
Documented by User: Cecilia Iqbal 01/08/25 17:18 EEG Routine Details of Procedure Details/Comments: Dr Atkinson's note 01/08/25: Jaziel Willis is a 54 year old male with a history of intractable epilepsy and developmental delay followed by Dr. Forrester. The patient presents to the emergency department room #15 room intubated on the ventilator. The patient was reported to experience several seizures prior to arrival and was given ketamine and rocuronium. Since the ER physician was not sure if the patient was continuing to seize, neurology consult was obtained. Patient has a history of frontal lobe seizures he is on multiple seizure medications he had several episodes in the past and has been admitted after status epilepticus in the past. There was no family available in the emergency room. Currently the patient is on IV propofol. He was given IV Keppra, IV phenytoin, and IV Vimpat with plans to continue Lamictal via NG tube. At the bedside in the emergency department room #15 patient intubated and sedated. Clinically he does not appear to be experiencing active seizures but due to rocuronium and IV propofol subclinical status epilepticus and not be excluded. Patient will be admitted to the intensive care unit. I contacted the highway technician who will plan to do a bedside portable EEG on 01/08/2025 to assess for subclinical status epilepticus. [place] [id number]- coma or sleep only: 14002 Documented by User: Ar Atkinson MD 01/08/25 18:49 EEG Routine Details of Procedure Details/Comments: Dr Atkinson's note 01/08/25: Jaziel Willis is a 54 year old male with a history of intractable epilepsy and developmental delay followed by Dr. Forrester. The patient presents to the emergency department room #15 room intubated on the ventilator. The patient was reported to experience several seizures prior to arrival and was given ketamine and rocuronium. Since the ER physician was not sure if the patient was continuing to seize, neurology consult was obtained. Patient has a history of frontal lobe seizures he is on multiple seizure medications he had several episodes in the past and has been admitted after status epilepticus in the past. There was no family available in the emergency room. Currently the patient is on IV propofol. He was given IV Keppra, IV phenytoin, and IV Vimpat with plans to continue Lamictal via NG tube. At the bedside in the emergency department room #15 patient intubated and sedated. Clinically he does not appear to be experiencing active seizures but due to rocuronium and IV propofol subclinical status epilepticus and not be excluded. Patient will be admitted to the intensive care unit. I contacted the highway technician who will plan to do a bedside portable EEG on 01/08/2025 to assess for subclinical status epilepticus. EEG TEMPLATE: This is a 19 channel routine video surface EEG recording utilizing the [employer] software with surface and EKG electrodes. The procedure was performed utilizing the international 10-20 system. Patient name: Jaziel Willis Date of : 1970 Patient age [age] years old Identification number: [id number] Referring Physician: Dr. Clifford and Dr. Atkinson EEG#: EEG Start time: 17:35:09 EEG End time: 17:55:32 Duration of study: 20 minutes Date of study: 01/08/2025 Reason for study: Status epilepticus patient admitted, intubated and sedated on IV propofol. Portable EEG recording performed to assess for subclinical status epilepticus and to assist in determining if additional or alternative anticonvulsant medications are required Skull defects: None Condition of recording: The patient was reported to be sedated on IV propofol and intubated Cooperation: N/A Activation procedures: Tactile stimulation Medications: IV propofol, Vimpat, Keppra, Lamictal, Dilantin, trazodone Background activity: Background activity during the recording consisted of 5 to 7 Hz hz generalized low voltage theta activity posteriorly penetrated by excessive intermittent low voltage beta activity centrally and anteriorly. This activity was later intermixed with generalized moderate voltage delta activity. Interictal activity: None Ictal activity: None Impression: This is an unremarkable sedated 20-minute portable surface EEG recording. Note: No clinical or subclinical seizure activity or subclinical status epilepticus was observed. Physician name/Signature: Ar Atkinson MD size mixer/Signature: Cecilia Rodriguez
[2025-01-08] MEDS: propofol 1,000 MG/100 ML INJ 28.58 MG IV (23:18)
[2025-01-09] VITALS (102 sets, daily range): BP systolic 100–145; BP diastolic 49–98; PULSE 56–79; RESP 14–18; TEMP 36.2–36.5; O2SAT 91–100
[2025-01-09] MEDS: phenytoin 100 MG in sodium chloride 0.9% 20 ML, non-DEHP filter tubing onc 1 EACH 104 MG IV ×3 (00:31→17:39)
[2025-01-09] MEDS: lacosamide 100 MG in sodium chloride 0.9% 50 ML 120 MG IV ×3 (00:32→17:41)
[2025-01-09] MEDS: piperacillin-tazobactam 3.375 GM in sodium chloride 0.9% (plus) 50 ML IV ×3 (00:33→16:58)
[2025-01-09] MEDS: levETIRAcetam 500 MG/100 ML PREMIX 400 MG IV ×3 (00:34→16:55)
[2025-01-09] MEDS: propofol 1,000 MG/100 ML INJ 32.66 MG IV ×7 (03:03→21:25)
[2025-01-09 03:46] LABS: ABG PCO2 33.6 mmHg (35-45); ABG PH Result 7.36 (7.35-7.45); Alveolar-Arterial Oxygen Gradi 17.7 mmHg (5-10); Arterial Blood Gas Hematocrit 55.6 % (42-52); Base Excess ABG -5.4 mmol/L (-2.0-2.0); Blood Gas Allen Test Pos; Blood Gas Operator Identificat JDB; Blood Gas Sample Site Brachial, right; Blood Gas Sample Type Arterial; Blood Gas Tidal Volume 0.55; Carboxyhemoglobin 1.4 %THgb (0.4-20.1); HCO3 ABG 18.9 mmol/L (22-26); HGB O2 Sat 93.7 % (95-100); Ionized Calcium Level - ABG 1.2 mmol/L (1.1-1.4); Methemoglobin 0.6 % (0.4-1.5); Oxygen Device VENT; Oxygen Saturation ABG 95.6; PO2 ABG 68.8 mmHg (80.0-100.0); PO2 FiO2 Ratio Arterial Blood 196; Total Hemoglobin 18.1 g/dL (14-18)
[2025-01-09 04:53] LABS: Alanine Aminotransferase 21 U/L (0-41); Albumin Level 4.1 g/dL (3.5-5.2); Alkaline Phosphatase 144 U/L (40-130); Anion Gap 23.2 (5-19); Aspartate Amino Transferase 26 U/L (0-40); Blood Urea Nitrogen 19 mg/dL (6-20); Calcium 9.1 mg/dL (8.5-10.5); Carbon Dioxide 17 mmol/L (22-29); Chloride 100 mmol/L (98-107); Creatinine Clr Calc Pharmacy 87.9183; Globulin 3.8 g/dL (1.3-4.6); Glucose 142 mg/dL (65-115); Magnesium 2.3 mg/dL (1.7-2.3); Osmolality Calculated 287 mOsm/kg (285-295); Phosphorus 4.2 mg/dL (2.5-4.5); Potassium 4.2 mmol/L (3.5-5.1); Sodium 136 mmol/L (136-145); Total Bilirubin 0.8 mg/dL (0.15-1.2); Total Protein 7.9 g/dL (6.6-8.7)
[2025-01-09 04:54] LABS: Phenytoin Dilantin 9.8 ug/mL (10-20)
[2025-01-09] MEDS: thiamine 100 mg/mL 2mL SDV IVP (07:59)
[2025-01-09] MEDS: enoxaparin 40 mg/0.4 mL Syringe SUBCUT (12:39)
--- NOTE | 2025-01-09 16:42 | P.PN_ITS ---
Subjective 2 Subjective: Intubated, sedated. Vitals/I&O/Wt Last Vital Signs Temp 97.7 F 01/09/25 04:00 Pulse 70 01/09/25 12:00 Resp 15 01/09/25 15:23 BP 114/78 01/09/25 12:00 Pulse Ox 95 01/09/25 15:23 O2 Del Method Mechanical Ventilation 01/08/25 16:02 FiO2 35 01/09/25 15:23 01/09/25 01/09/25 01/09/25 06:59 14:59 22:59 Intake Total 496.804 / 2461.526 521.428 / 521.428 Output Total 1400 / 1400 Balance 496.804 / 1861.526 -878.572 / -878.572 Weight last 48 hrs Weight 153 kg Weight 136.078 kg Physical Exam 2 Const: GENERAL APPEARANCE: patient mechanically ventilated HENMT: COMMON NORMALS: oropharynx normal Neck/C-Spine: COMMON NORMALS: no JVD Resp: COMMON NORMALS: normal respiratory effort OTHER: Coarse breath sounds Cardio: COMMON NORMALS: no JVD, regular rhythm, S1 normal heart sound present, S2 normal heart sound present and No murmurs present (Cardio) RHYTHM: regular rhythm HEART SOUNDS: S1 normal heart sound present and S2 normal heart sound present GI: COMMON NORMALS: Normal to inspection, nondistended, normoactive bowel sounds present and Soft to palpation PALPATION: Yes Soft to palpation Extremity: COMMON NORMALS: no joint enlargement and no pedal edema Skin: NARRATIVE SKIN EXAM: Bilateral lower extremity chronic stasis dermatitis, lichenification. Patches of mild erythema without suggestion of cellulitis. No weeping. Urinary Catheter Management: Saenz: Cath Placed During This Visit: yes Reason for Continuing Indwelling Catheter: Accurate Measurement of Urinary Output in Critically Ill Patients Urinary Catheter Date of Insertion: 01/08/25 Data 01/08/25 08:37 01/09/25 03:28 Micro: Microbiology 01/08/25 08:55 Gram Stain - Final Sputum - Endotracheal Tube Aspirate Sputum Culture - Preliminary 01/08/25 10:20 Urine Culture - Preliminary Urine,Clean Catch Gram Negative Rods 01/08/25 09:03 Blood Culture - Preliminary Blood NEGATIVE TO DATE 01/08/25 08:58 Blood Culture - Preliminary Blood NEGATIVE TO DATE A&P Assessment and plan (1) Aspiration pneumonia: Reviewed vitals, ABG, CMP, discussed with RT. Still copious secretions today per discussion with respiratory therapy. Continue pulmonary toilet. Continue antibiotics Respiration pneumonia.Add Mucinex. With suspected aspiration secondary to seizure, with section of gastric secretions from ET tube. Underwent further suctioning in ER. Respiratory assess and treat, continue ventilatory support, pulmonary toilet. Zosyn. Monitor for risk of recurrence of C. difficile. Cytopenia. Kidney injury. Monitor oxygenation. With leukocytosis 25. Wean off ventilatory support as tolerating. (2) Status epilepticus: Reviewed EEG results. Neurology note. Continue phenytoin,, Keppra. PPI prophylaxis, Lovenox DVT prophylaxis. (3) UTI (urinary tract infection): Noted more than 100,000 gram-negative rods in urine. Continue Zosyn. Monitor for risk of cytopenia, C. difficile. ALBINO. Follow-up urine culture. Plan History of C. difficile colitis Chronic venous stasis HTN: Monitor blood pressures Developmental disorder Unremarkable problems PDMP PDMP Reviewed: Not Reviewed Attestations 2 Medical Necessity Statement*: Continue admission for assessment management of aspiration pneumonia with copious secretions after status epilepticus, UTI. Coding Level of Care Code Critical Care >/= 30 minutes Critical care time (in minutes): 35 The high probability of a clinically significant, sudden or life threatening deterioration, as referenced in this documentation, required my full and direct attention, intervention and personal management. The critical care time shown is in addition to time spent performing any reported separately billable procedures and includes the following: [x] Data and vital sign review and interpretation [x ] Patient assessment, examination and intervention [x] Medication orders and management [x] Patient/Family updates as able [x] Care Coordination and Documentation. Diagnoses Aspiration pneumonia J69.0 Status epilepticus G40.901 UTI (urinary tract infection) N39.0
[2025-01-09] MEDS: guaiFENesin 600 mg Tablet 1200 MG PO (16:59)
[2025-01-10] VITALS (81 sets, daily range): BP systolic 112–161; BP diastolic 52–109; PULSE 55–81; RESP 14–17; TEMP 36.7–37; O2SAT 95–100
[2025-01-10] MEDS: piperacillin-tazobactam 3.375 GM in sodium chloride 0.9% (plus) 50 ML IV (00:48)
[2025-01-10] MEDS: levETIRAcetam 500 MG/100 ML PREMIX 400 MG IV ×4 (00:48→23:20)
[2025-01-10] MEDS: propofol 1,000 MG/100 ML INJ 32.66 MG IV ×3 (00:49→06:46)
[2025-01-10] MEDS: lacosamide 100 MG in sodium chloride 0.9% 50 ML 120 MG IV ×3 (00:51→16:44)
[2025-01-10 03:33] LABS: Basophils # 0.1 10^3/uL (0.0-0.1); Basophils % 0.4 %; Eosinophils # 0.5 10^3/uL (0.0-0.8); Eosinophils % 1.9 %; Hematocrit 44.7 % (37-53); Lymphocytes # 1.9 10^3/uL (0.8-4.8); Lymphocytes % 7.2 %; Mean Corpuscular HGB Conc 34.5 g/dL (30-55); Mean Corpuscular Hemoglobin 32.4 pg (27-33); Mean Corpuscular Volume 93.9 fl (82-101); Mean Platelet Volume 9.2 fL (7.4-10.4); Monocytes # 2.3 10^3/uL (0.2-0.9); Monocytes % 8.6 %; Neutrophils # 21.76 10^3/uL (1.8-7.7); Nucleated Red Blood Cells % 0 %; Platelet Count 207 10^3/cmm (157-399); Red Blood Count 4.76 10^6/uL (3.85-5.65); Red Cell Distribution Width 15.6 % (12.1-15.1); White Blood Count 26.83 10^3/uL (3.29-11.43)
[2025-01-10 03:58] LABS: Alanine Aminotransferase 16 U/L (0-41); Albumin Level 3.9 g/dL (3.5-5.2); Alkaline Phosphatase 131 U/L (40-130); Anion Gap 19.9 (5-19); Aspartate Amino Transferase 18 U/L (0-40); Blood Urea Nitrogen 28 mg/dL (6-20); Carbon Dioxide 19 mmol/L (22-29); Chloride 101 mmol/L (98-107); Creatinine Clr Calc Pharmacy 73.2653; Globulin 3.4 g/dL (1.3-4.6); Glomerular Filtration Rate 39.7 mL/min (90-130); Glucose 116 mg/dL (65-115); Osmolality Calculated 288 mOsm/kg (285-295); Potassium 3.9 mmol/L (3.5-5.1); Sodium 136 mmol/L (136-145); Total Bilirubin 0.8 mg/dL (0.15-1.2); Total Protein 7.3 g/dL (6.6-8.7)
[2025-01-10] MEDS: phenytoin 100 MG in sodium chloride 0.9% 20 ML, non-DEHP filter tubing onc 1 EACH 104 MG IV ×3 (07:39→22:46)
[2025-01-10] MEDS: guaiFENesin 600 mg Tablet 1200 MG PO (08:01)
[2025-01-10] MEDS: thiamine 100 mg/mL 2mL SDV IVP (08:03)
--- NOTE | 2025-01-10 10:40 | PC.NURSE ---
Patient performed breathing trail and put on pressure support off all sedation. Patient passed breathing trail. Notified Dr. Jimenez and received extubation order, order placed. Patient extubated and restraints removed at 1037 per RT Martita Matta
--- NOTE | 2025-01-10 12:09 | PC.SOCIAL ---
IMM Updated Pt is intubated. Provided pt a copy. Initialed, dated, & timed a copy & placed in chart.
[2025-01-10] MEDS: cefepime 1,000 mg SDV 1000 MG IVP (12:49)
[2025-01-10] MEDS: enoxaparin 40 mg/0.4 mL Syringe SUBCUT (12:52)
--- NOTE | 2025-01-10 13:25 | PC.NURSE ---
PT/ST/OT eval and ordered per Dr. Ch verbal orders
--- NOTE | 2025-01-10 18:48 | P.PN_ITS ---
Subjective 2 Subjective: Intubated, sedated. Weaning down sedation. Vitals/I&O/Wt Last Vital Signs Temp 98.6 F 01/10/25 12:45 Pulse 76 01/10/25 16:45 Resp 14 01/10/25 09:10 BP 126/68 01/10/25 16:45 Pulse Ox 97 01/10/25 16:45 O2 Del Method Mechanical Ventilation 01/08/25 16:02 FiO2 35 01/10/25 09:10 01/10/25 01/10/25 01/10/25 06:59 14:59 22:59 Intake Total 496.549 / 1448.501 282 / 282 182 / 464 Output Total 580 / 3455 1350 / 1350 Balance -83.451 / -2006.499 282 / 282 -1168 / -886 Weight last 48 hrs Weight 152 kg Physical Exam 2 Const: GENERAL APPEARANCE: patient mechanically ventilated HENMT: COMMON NORMALS: oropharynx normal Neck/C-Spine: COMMON NORMALS: no JVD Resp: COMMON NORMALS: normal respiratory effort OTHER: Coarse breath sounds Cardio: COMMON NORMALS: no JVD, regular rhythm, S1 normal heart sound present, S2 normal heart sound present and No murmurs present (Cardio) RHYTHM: regular rhythm HEART SOUNDS: S1 normal heart sound present and S2 normal heart sound present GI: COMMON NORMALS: Normal to inspection, nondistended, normoactive bowel sounds present and Soft to palpation PALPATION: Yes Soft to palpation Extremity: COMMON NORMALS: no joint enlargement and no pedal edema Skin: NARRATIVE SKIN EXAM: Bilateral lower extremity chronic stasis dermatitis, lichenification. Patches of mild erythema without suggestion of cellulitis. No weeping. Urinary Catheter Management: Saenz: Cath Placed During This Visit: yes Reason for Continuing Indwelling Catheter: Accurate Measurement of Urinary Output in Critically Ill Patients Urinary Catheter Date of Insertion: 01/08/25 Data 01/10/25 03:03 01/10/25 03:03 Micro: Microbiology 01/08/25 08:55 Gram Stain - Final Sputum - Endotracheal Tube Aspirate Sputum Culture - Final 01/08/25 10:20 Urine Culture - Preliminary Urine,Clean Catch Gram Negative Rods A&P Assessment and plan (1) Aspiration pneumonia: Doing well on 35% FiO2. Discussed with RT, nursing. Still having secretions. Did well on breathing trial. Extubated to nasal cannula. Continue treatment of aspiration pneumonia. Continue airway clearance, Mucinex. Add flutter valve. PT, OT assessment requested. Discussed with community case manager. Reviewed vitals, ABG, CMP, discussed with RT. Still copious secretions today per discussion with respiratory therapy. Continue pulmonary toilet. Continue antibiotics Respiration pneumonia.Add Mucinex. Continue Zosyn. Monitor for risk of recurrence of C. difficile. Cytopenia. Kidney injury. Monitor oxygenation. Repeat CBC, chemistry. (2) Status epilepticus: Continue phenytoin, Vimpat, Keppra. PPI prophylaxis, Lovenox DVT prophylaxis. (3) UTI (urinary tract infection): Reviewed urine culture, without identification so far. If noted more than 100,000 gram-negative rods in urine. Continue Zosyn. Monitor for risk of cytopenia, C. difficile. ALBINO. Follow-up urine culture. Plan History of C. difficile colitis Chronic venous stasis HTN: Monitor blood pressures Developmental disorder Unremarkable problems PDMP PDMP Reviewed: Not Reviewed Attestations 2 Medical Necessity Statement*: Continue admission for assessment management of aspiration pneumonia with copious secretions status post extubation after status epilepticus, UTI. Coding Level of Care Code Critical Care >/= 30 minutes Critical care time (in minutes): 35 The high probability of a clinically significant, sudden or life threatening deterioration, as referenced in this documentation, required my full and direct attention, intervention and personal management. The critical care time shown is in addition to time spent performing any reported separately billable procedures and includes the following: [x] Data and vital sign review and interpretation [x ] Patient assessment, examination and intervention [x] Medication orders and management [x] Patient/Family updates as able [x] Care Coordination and Documentation. Diagnoses Aspiration pneumonia J69.0 Status epilepticus G40.901 UTI (urinary tract infection) N39.0
[2025-01-11] VITALS (30 sets, daily range): BP systolic 120–156; BP diastolic 62–100; PULSE 62–76; RESP 14–18; TEMP 36.6–36.8; O2SAT 92–98
[2025-01-11] MEDS: cefepime 1,000 mg SDV 1000 MG IVP ×2 (00:32→12:21)
[2025-01-11] MEDS: lacosamide 100 MG in sodium chloride 0.9% 50 ML 120 MG IV ×2 (00:32→09:08)
--- NOTE | 2025-01-11 03:38 | PC.NURSE ---
NG tube Entered patient's room to see that patient's NG tube had become dislodged from patient's nose; dressing holding tube in place looked to have migrated several inches. Contacted Dr Knott to inform her. Received orders to remove patient's NG tube and place an order for a bedside swallow study to be completed by speech pathology. Order placed and NG tube removed.
[2025-01-11 05:16] LABS: Basophils # 0.1 10^3/uL (0.0-0.1); Basophils % 0.4 %; Eosinophils # 0.5 10^3/uL (0.0-0.8); Eosinophils % 2.2 %; Hematocrit 44.7 % (37-53); Lymphocytes # 1.8 10^3/uL (0.8-4.8); Lymphocytes % 8.3 %; Mean Corpuscular HGB Conc 33.6 g/dL (30-55); Mean Corpuscular Hemoglobin 31.6 pg (27-33); Mean Corpuscular Volume 94.3 fl (82-101); Mean Platelet Volume 9.4 fL (7.4-10.4); Monocytes # 2.4 10^3/uL (0.2-0.9); Neutrophils % 77.2 %; Nucleated Red Blood Cells % 0 %; Platelet Count 228 10^3/cmm (157-399); Red Blood Count 4.74 10^6/uL (3.85-5.65); White Blood Count 21.27 10^3/uL (3.29-11.43)
[2025-01-11 05:34] LABS: Alanine Aminotransferase 17 U/L (0-41); Albumin Level 3.7 g/dL (3.5-5.2); Alkaline Phosphatase 115 U/L (40-130); Anion Gap 19.8 (5-19); Aspartate Amino Transferase 21 U/L (0-40); Blood Urea Nitrogen 33 mg/dL (6-20); Calcium 9.1 mg/dL (8.5-10.5); Carbon Dioxide 20 mmol/L (22-29); Chloride 106 mmol/L (98-107); Creatinine Clr Calc Pharmacy 97.5404; Globulin 3.6 g/dL (1.3-4.6); Glomerular Filtration Rate 57.7 mL/min (90-130); Glucose 111 mg/dL (65-115); Osmolality Calculated 302 mOsm/kg (285-295); Potassium 3.8 mmol/L (3.5-5.1); Sodium 142 mmol/L (136-145); Total Bilirubin 0.6 mg/dL (0.15-1.2); Total Protein 7.3 g/dL (6.6-8.7)
[2025-01-11] MEDS: phenytoin 100 MG in sodium chloride 0.9% 20 ML, non-DEHP filter tubing onc 1 EACH 104 MG IV (07:25)
[2025-01-11] MEDS: levETIRAcetam 500 MG/100 ML PREMIX 400 MG IV (07:35)
[2025-01-11] MEDS: thiamine 100 mg/mL 2mL SDV IVP (09:07)
[2025-01-11 09:58] LABS: Levetiracetam Immunoassy 34.8 mcg/mL (6.0-46.0)
--- NOTE | 2025-01-11 10:05 | P.PN_ITS ---
Subjective 2 Subjective: Sitting up in chair, awake and alert. Pleasant. Denies any discomfort or pain. Breathing is comfortable on 1 L nasal cannula oxygen. Vitals/I&O/Wt Last Vital Signs Temp 97.9 F 01/11/25 08:00 Pulse 65 01/11/25 08:00 Resp 18 01/11/25 08:00 BP 133/94 01/11/25 08:00 Pulse Ox 97 01/11/25 08:00 O2 Del Method Nasal Cannula 01/11/25 08:00 O2 Flow Rate 1 01/11/25 08:00 FiO2 35 01/10/25 09:10 01/10/25 01/11/25 01/11/25 22:59 06:59 14:59 Intake Total 182 / 464 182 / 646 122 / 122 Output Total 1750 / 1750 900 / 2650 Balance -1568 / -1286 -718 / -2003 122 / 122 Weight last 48 hrs Weight 142.5 kg Weight 152 kg Physical Exam 2 Const: GENERAL APPEARANCE: patient mechanically ventilated HENMT: COMMON NORMALS: oropharynx normal Neck/C-Spine: COMMON NORMALS: no JVD Resp: COMMON NORMALS: normal respiratory effort OTHER: Coarse breath sounds Cardio: COMMON NORMALS: no JVD, regular rhythm, S1 normal heart sound present, S2 normal heart sound present and No murmurs present (Cardio) RHYTHM: regular rhythm HEART SOUNDS: S1 normal heart sound present and S2 normal heart sound present GI: COMMON NORMALS: Normal to inspection, nondistended, normoactive bowel sounds present and Soft to palpation PALPATION: Yes Soft to palpation Extremity: COMMON NORMALS: no joint enlargement and no pedal edema Skin: NARRATIVE SKIN EXAM: Bilateral lower extremity chronic stasis dermatitis, lichenification. Patches of mild erythema without suggestion of cellulitis. No weeping. Urinary Catheter Management: Saenz: Cath Placed During This Visit: yes Reason for Continuing Indwelling Catheter: Accurate Measurement of Urinary Output in Critically Ill Patients Urinary Catheter Date of Insertion: 01/08/25 Data 01/11/25 04:25 01/11/25 04:25 Micro: Microbiology 01/08/25 10:20 Urine Culture - Final Urine,Clean Catch Escherichia coli 01/08/25 08:55 Gram Stain - Final Sputum - Endotracheal Tube Aspirate Sputum Culture - Final A&P Assessment and plan (1) Aspiration pneumonia: Extubated to nasal cannula, doing well so far in terms of oxygenation. Continue to wean down oxygen as tolerated. Was not ready to start oral diet on speech therapy assessment yesterday, pending reassessment today. Continues n.p.o. for now. Once able to restart diet, will transition back to p.o. antiepileptics. Continue airway clearance, Mucinex. Add edflutter valve. Continue care on medical surgical floor. PT, OT assessment requested. Discussed with nursing and telehealth case manager. Reviewed vitals, CBC, CMP Continue antibiotics aspiration pneumonia Continue Zosyn. Monitor for risk of recurrence of C. difficile. Cytopenia. Kidney injury. Monitor oxygenation. Repeat CBC, chemistry. (2) Status epilepticus: Will transition back to p.o. antibiotics once able to resume oral diet, pending speech therapy reassessment. Continue phenytoin, Vimpat, Keppra. PPI prophylaxis, Lovenox DVT prophylaxis. (3) UTI (urinary tract infection): Reviewed urine culture, growing E. coli more than 100,000 CFU. Pansensitive. Continue Zosyn as above for now. Monitor for risk of cytopenia, C. difficile. ALBINO. Follow-up urine culture. Plan History of C. difficile colitis Chronic venous stasis HTN: Monitor blood pressures Developmental disorder Unremarkable problems PDMP PDMP Reviewed: Not Reviewed Attestations 2 Medical Necessity Statement*: Continue admission for assessment management of aspiration pneumonia pending speech therapy reassessment to assess for possibility of resumption of oral diet, with copious secretions status post extubation after status epilepticus, UTI. and High MDM includes amount and/or complexity of data reviewed/ordered [ resulted lab(s)/test(s), ordered lab(s)/test(s) and other healthcare professional discussion] and described risk of complication, morbidity or mortality of management as documented Diagnoses Aspiration pneumonia J69.0 Status epilepticus G40.901 UTI (urinary tract infection) N39.0
[2025-01-11] MEDS: enoxaparin 40 mg/0.4 mL Syringe SUBCUT (12:21)
--- NOTE | 2025-01-11 15:58 | PC.NURSE ---
Report given to She, YUKI
[2025-01-11] MEDS: phenytoin 50mg Chew Tablet 250 MG PO (16:03)
--- NOTE | 2025-01-11 16:22 | PC.NURSE ---
Transferred to room 250-2 via wheelchair. Family at bedside.
[2025-01-11] MEDS: guaiFENesin 600 mg Tablet 1200 MG PO (18:00)
[2025-01-11] MEDS: levETIRAcetam 500 mg Tablet 2000 MG PO (18:00)
[2025-01-11] MEDS: lamoTRIgine 100 mg Tablet 200 MG PO (18:00)
[2025-01-11] MEDS: lacosamide 50 mg Tablet 200 MG PO (18:02)
[2025-01-11] MEDS: atorvastatin 40 mg Tablet PO (20:58)
[2025-01-11] MEDS: trazodone 100 mg Tablet PO (20:58)
[2025-01-12] MEDS: cefepime 1,000 mg SDV 1000 MG IVP (00:22)
[2025-01-12] MEDS: phenytoin 50mg Chew Tablet 250 MG PO ×2 (00:23→08:34)
[2025-01-12 01:28] VITALS: BP 125/84; PULSE 65; RESP 15; TEMP 36.8; O2SAT 96
[2025-01-12 05:17] VITALS: BP 117/83; PULSE 65; RESP 14; TEMP 36.6; O2SAT 96; BMI 41.4
--- NOTE | 2025-01-12 07:46 | PM.DCS ---
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 difficile colitis, HTN, PVD, obesity, developed a seizure today, found in persistent seizure by EMS on arrival, was given Ativan, intubated with ketamine, Versed. EMS believing he had aspirated as well with suctioning of gastric secretions from ET tube. In ER without further seizures, was started on propofol for sedation, continuing on mechanical ventilatory support. Was given IV Keppra, phenytoin and Vimpat, pending Lamictal via OGT. Received further pulmonary toilet. He has been seen by neurology with further plans for EEG. Hospital Course Hospital Course He was admitted to ICU and treated with transition to IV antiepileptics, sedation with propofol, underwent spot check EEG which did not show ongoing seizure. Possible aspiration pneumonia as well as UTI was treated with Zosyn, pulmonary toilet, with improving oxygenation, good weaning of sedation, was able to extubate initially to minimal NC support and then weaned to room air. Urine culture returned with dyer-sensitive E coli. Transitioned to PO antiepileptics. Phenytoin dose is increased to 300mg Q8h due to low phenytoin levels noted on assessment. He is asked to follow up with neurology after recurrent status epilepticus. Physical Exam Narrative: He is awake and alert, pleasant, appears comfortable, finishes breakfast and is watching a TV show. Const: GENERAL APPEARANCE: patient mechanically ventilated HENMT: COMMON NORMALS: oropharynx normal Neck/C-Spine: COMMON NORMALS: no JVD Resp: COMMON NORMALS: normal respiratory effort and clear to auscultation bilaterally AUSCULTATION: clear to auscultation bilaterally Cardio: COMMON NORMALS: no JVD, regular rhythm, S1 normal heart sound present, S2 normal heart sound present and No murmurs present (Cardio) RHYTHM: regular rhythm HEART SOUNDS: S1 normal heart sound present and S2 normal heart sound present GI: COMMON NORMALS: Normal to inspection, nondistended, normoactive bowel sounds present and Soft to palpation PALPATION: Yes Soft to palpation Extremity: COMMON NORMALS: no joint enlargement and no pedal edema Skin: NARRATIVE SKIN EXAM: Bilateral lower extremity chronic stasis dermatitis, lichenification. Patches of mild erythema without suggestion of cellulitis. No weeping. Urinary Catheter Management: Saenz: Cath Placed During This Visit: yes Reason for Continuing Indwelling Catheter: Other Urinary Catheter Date of Insertion: 01/08/25 Discharge Data Studies Completed and Pending Completed Studies During Hospitalization Category Date Time Status CT head wo con* [id number] Stat Cat Scan 01/08/25 10:15 Completed XR chest 1V portable [id number] Stat Exams 01/08/25 07:49 Completed XR chest 1V portable [id number] Stat Exams 01/08/25 11:58 Completed Pending at discharge Category Date Time Status Blood Culture Stat Lab 01/08/25 09:03 Results Lacosamide (Vimpat) Routine Lab 01/08/25 08:37 Received Lacosamide (Vimpat) Routine Lab 01/09/25 03:28 Received Radiology Impressions Head CT 01/08/25 10:15 IMPRESSION: 1. No acute intracranial hemorrhage or edema. 2. Mild cerebral atrophy and small vessel disease. 3. Possible meningioma towards the vertex is not as well visualized on today's exam. 4. Patient is intubated. Chest X-Ray 01/08/25 11:58 IMPRESSION: 1. Right-sided IJ catheter probably ending at the cavoatrial junction. The chest is otherwise unchanged since the last exam. Laboratory Results WBC 21.27 10^3/uL (3.29-11.43) H 01/11/25 04:25 RBC 4.74 10^6/uL (3.85-5.65) 01/11/25 04:25 Hgb 15.00 g/dL (11.27-16.99) 01/11/25 04:25 Hct 44.7 % (37-53) 01/11/25 04:25 MCV 94.3 fl (82-101) 01/11/25 04:25 MCH 31.6 pg (27-33) 01/11/25 04:25 MCHC 33.6 g/dL (30-55) 01/11/25 04:25 RDW 15.0 % (12.1-15.1) 01/11/25 04:25 Plt Count 228 10^3/cmm (157-399) 01/11/25 04:25 MPV 9.4 fL (7.4-10.4) 01/11/25 04:25 Neut % (Auto) 77.2 % 01/11/25 04:25 Lymph % (Auto) 8.3 % 01/11/25 04:25 [place] % (Auto) 11.0 % 01/11/25 04:25 Eos % (Auto) 2.2 % 01/11/25 04:25 Baso % (Auto) 0.4 % 01/11/25 04:25 Neut # (Auto) 16.40 10^3/uL (1.8-7.7) H 01/11/25 04:25 Lymph # (Auto) 1.8 10^3/uL (0.8-4.8) 01/11/25 04:25 [place] # (Auto) 2.4 10^3/uL (0.2-0.9) H 01/11/25 04:25 Eos # (Auto) 0.5 10^3/uL (0.0-0.8) 01/11/25 04:25 Baso # (Auto) 0.1 10^3/uL (0.0-0.1) 01/11/25 04:25 Nucleated RBC % (auto) 0 % 01/11/25 04:25 Nucleated RBCs # 0.0 /100WBC 01/11/25 04:25 Specimen Type Arterial 01/09/25 03:30 Sample Site Brachial, right 01/09/25 03:30 ABG pH 7.36 (7.35-7.45) 01/09/25 03:30 ABG pCO2 33.6 mmHg (35-45) L 01/09/25 03:30 ABG pO2 68.8 mmHg (80.0-100.0) L 01/09/25 03:30 ABG PO2/FiO2 Ratio 196 01/09/25 03:30 ABG HCO3 18.9 mmol/L (22-26) L 01/09/25 03:30 ABG O2 Saturation 95.6 01/09/25 03:30 ABG Base Excess -5.4 mmol/L (-2.0-2.0) L 01/09/25 03:30 Ricardo Test Pos 01/09/25 03:30 A-a O2 Gradient 17.7 mmHg (5-10) H 01/09/25 03:30 Hematocrit 55.6 % (42-52) H 01/09/25 03:30 Hgb O2 Saturation 93.7 % (95-100) L 01/09/25 03:30 Carboxyhemoglobin 1.4 %THgb (0.4-20.1) 01/09/25 03:30 Methemoglobin 0.6 % (0.4-1.5) 01/09/25 03:30 Total Hemoglobin 18.1 g/dL (14-18) H 01/09/25 03:30 Sodium 137.0 mmol/L (131-143) 01/09/25 03:30 Potassium 4.0 mmol/L (3.5-5.0) 01/09/25 03:30 Glucose 146.0 mg/dL (70-115) H 01/09/25 03:30 Ionized Calcium 1.2 mmol/L (1.1-1.4) 01/09/25 03:30 O2 Delivery Device Vent 01/09/25 03:30 FiO2 35.0 % 01/09/25 03:30 Tidal Volume 0.55 01/09/25 03:30 PEEP 5.0 cmH20 01/09/25 03:30 Trigonometry Teacher ID Jdb 01/09/25 03:30 Sodium 142 mmol/L (136-145) 01/11/25 04:25 Potassium 3.8 mmol/L (3.5-5.1) 01/11/25 04:25 Chloride 106 mmol/L (98-107) 01/11/25 04:25 Carbon Dioxide 20 mmol/L (22-29) L 01/11/25 04:25 Anion Gap 19.8 (5-19) H 01/11/25 04:25 BUN 33 mg/dL (6-20) H 01/11/25 04:25 Creatinine 1.3 mg/dL (0.7-1.2) H 01/11/25 04:25 GFR Calculation 57.7 mL/min (90-130) L 01/11/25 04:25 Glucose 111 mg/dL (65-115) 01/11/25 04:25 Calculated Osmolality 302 mOsm/kg (285-295) H 01/11/25 04:25 Lactic Acid 6.4 mmol/L (0.5-2.2) H* 01/08/25 08:37 Lactic Acid (Sepsis) 2.3 mmol/L (0.5-2.2) H 01/08/25 11:50 Calcium 9.1 mg/dL (8.5-10.5) 01/11/25 04:25 Phosphorus 4.2 mg/dL (2.5-4.5) 01/09/25 03:28 Magnesium 2.3 mg/dL (1.7-2.3) 01/09/25 03:28 Total Bilirubin 0.6 mg/dL (0.15-1.2) 01/11/25 04:25 AST 21 U/L (0-40) 01/11/25 04:25 ALT 17 U/L (0-41) 01/11/25 04:25 Alkaline Phosphatase 115 U/L (40-130) 01/11/25 04:25 Total Protein 7.3 g/dL (6.6-8.7) 01/11/25 04:25 Albumin 3.7 g/dL (3.5-5.2) 01/11/25 04:25 Globulin 3.6 g/dL (1.3-4.6) 01/11/25 04:25 Urine Color Yellow (Yellow) 01/08/25 10:20 Urine Appearance Cloudy (CLEAR) A 01/08/25 10:20 Urine pH 5.5 (5-7) 01/08/25 10:20 Ur Specific Miles 1.014 (1.005-1.030) 01/08/25 10:20 Urine Protein 2+ (Negative) A 01/08/25 10:20 Urine Glucose (UA) Negative (Normal) 01/08/25 10:20 Urine Ketones Negative (Negative) 01/08/25 10:20 Urine Blood Trace (Negative) A 01/08/25 10:20 Urine Nitrate Positive (Negative) A 01/08/25 10:20 Urine Bilirubin Negative (Negative) 01/08/25 10:20 Urine Urobilinogen 1.0 mg/dL (Negative) 01/08/25 10:20 Ur Leukocyte Esterase 2+ (Negative) A 01/08/25 10:20 Urine RBC 3-5 /hpf (0-2) 01/08/25 10:20 Urine WBC 51-100 /hpf (0-5) H 01/08/25 10:20 Ur Squamous Epith Cells 6-10 /hpf (0-5) 01/08/25 10:20 Amorphous Sediment Not Reportable 01/08/25 10:20 Urine Bacteria 4+ /hpf (NONE) H 01/08/25 10:20 Hyaline Casts 22.33 /lpf 01/08/25 10:20 Phenytoin 9.8 ug/mL (10-20) L 01/09/25 03:28 Levetiracetam 34.8 mcg/mL (6.0-46.0) 01/09/25 03:28 Influenza A (PCR) Negative (Negative) 01/08/25 10:20 Influenza Type B (PCR) Negative (Negative) 01/08/25 10:20 RSV (PCR) Negative (Negative) 01/08/25 10:20 SARS-CoV-2 (PCR) Negative (Negative) 01/08/25 10:20 Vitals Last Vital Signs Temp 97.9 F 01/12/25 05:17 Pulse 65 01/12/25 05:17 Resp 14 01/12/25 05:17 BP 117/83 01/12/25 05:17 Pulse Ox 96 01/12/25 05:17 O2 Del Method Room Air 01/11/25 20:09 O2 Flow Rate 1 01/11/25 08:00 FiO2 35 01/10/25 09:10 Discharge Plan Discharge Patient Disposition: Home Condition: Stable Prescriptions: New cefdinir 300 mg capsule 300 mg PO BID 4 Days Qty: 8 0RF Continued (DME) Compression hose 30/40 See Rx Instructions .Route .MEDSUPPLY Qty: 1 2RF Rx Instructions: Measure to fit A6531 (DME) Diabetic Shoes with 3 pairs of inserts See Rx Instructions .ROUTE .MEDSUPPLY Qty: 1 0RF Rx Instructions: As directed by HOME trazodone 100 mg tablet 100 mg PO BEDTIME Qty: 30 2RF levetiracetam 1,000 mg tablet 2,000 mg PO BID Qty: 120 11RF atorvastatin 40 mg tablet 40 mg PO BEDTIME 30 Days Qty: 30 2RF (DME) Compression hose See Rx Instructions Rx Instructions: Measure for size A6530 lacosamide 50 mg tablet 200 mg PO BID Advanced Probiotic 625 mg (10 billion cell) capsule 1 cap PO BID Changed phenytoin 50 mg tablet,chewable 300 mg PO Q8H Qty: 450 11RF Discharge Orders: Discharge Order (Routine); Ordered 01/12/25 Ordered By: Osmar Jimenez Referrals: Amy Forrester MD [Physician, Neurology] - 03/07/25 2:15 pm Referral Note: Status epilepticus Candi Latif, NIRANJAN [Primary Care Provider, [facility]] - 01/25/25 11:40 am Referral Note: Discharge Diet: As Directed Patient Instructions: Phenytoin (By mouth), Cefdinir (By mouth), Status Epilepticus (GEN) Activity Restrictions/Additional Instructions: Increase phenytoin to 300 mg every 8 hours. Follow-up with neurology. Complete antibiotic course for urinary tract infection and follow-up for reassessment with primary provider. Continue soft and bite sized foods (dysphagia level 6 diet) with mildly thickened liquids. Maintain aspiration precautions. Discharge Attestations Time Spent in Discharge Care*: greater than 30 min Status at Discharge: Cognitive status at discharge: moderately impaired cognition, Behavioral status at discharge: cooperative, Quality Metrics Clinical Quality Measures [ No reported AMI, CVA or VTE this stay] Coding Level of Care Code 29026 Total time (in minutes) for Discharge: 40 Diagnoses Aspiration pneumonia J69.0 Status epilepticus G40.901 UTI (urinary tract infection) N39.0
[2025-01-12 07:59] VITALS: BP 132/88; PULSE 62; RESP 16; TEMP 36.9; O2SAT 91
[2025-01-12] MEDS: lamoTRIgine 100 mg Tablet 200 MG PO (08:34)
[2025-01-12] MEDS: levETIRAcetam 500 mg Tablet 2000 MG PO (08:34)
[2025-01-12] MEDS: lacosamide 50 mg Tablet 200 MG PO (08:34)
[2025-01-12] MEDS: thiamine 100 mg/mL 2mL SDV IVP (08:35)
[2025-01-12] MEDS: guaiFENesin 600 mg Tablet 1200 MG PO (08:35)
[2025-01-12 08:46] LABS: Lacosamide (Vimpat) 8.5 mcg/mL
[2025-01-12 11:21] VITALS: BP 142/93; PULSE 71; RESP 18; TEMP 36.4; O2SAT 95
[2025-01-12 11:56] VITALS: BP 142/93; PULSE 71; RESP 18; TEMP 36.4; O2SAT 95
[2025-01-12 23:30] LABS: Lacosamide (Vimpat) 6.9 mcg/mL
== END 2025-01-12 11:50 | disposition home or self-care (01) | DRG 208 ==
LOC: ER 08:22 → ICU 11:17 → MEDSURG 01-11 16:24
PROVIDERS: Admitting Provider Internal Medicine; Emergency Provider Family Medicine; PCP Nurse Practitioner; Visit Provider Internal Medicine
DX: J69.0 Pneumonitis due to inhalation of food and vomit (principal); N39.0 Urinary tract infection, site not specified; Z68.41 Body mass index [BMI] 40.0-44.9, adult; G93.40 Encephalopathy, unspecified; G40.401 Other generalized epilepsy and epileptic syndromes, not intractable, with status epilepticus; F89 Unspecified disorder of psychological development; I10 Essential (primary) hypertension; I73.9 Peripheral vascular disease, unspecified; E66.01 Morbid (severe) obesity due to excess calories; E78.1 Pure hyperglyceridemia; Z79.891 Long term (current) use of opiate analgesic; Z93.2 Ileostomy status; Z90.49 Acquired absence of other specified parts of digestive tract
CPT/HCPCS: 36415; 36592; 36600; 51702; 70450; 71045; 80051; 80053; 80177; 80185; 80299; 81001; 82330; 82805; 83605; 83735; 84100; 85025; 87040; 87070; 87077; 87086; 87186; 87205; 87637; 92507; 92523; 92526; 92610; 93005; 94002; 94003; 94664; 94799; 95822; 96365; 96366; 96367; 96372; 96374; 96376; 97116; 97162; 97165; 97530; 97535; 99291; A4570; C9254; J0692; J1165; J1650; J1953; J2543; J2704; J3411; J7030; J9999

== ENCOUNTER 2025-02-08 13:28 | Oncology outpatient (recurring) (ONCR) | payer MEDICARE, MEDICAID, SELFPAY ==
--- NOTE | 2025-02-08 13:30 | MM_ITS ---
WS: [id number] RIGHT 3D TOMOSYNTHESIS DIGITAL MAMMOGRAPHY WITH CAD CLINICAL INFORMATION: N64.9 - Disorder of breast, unspecified HISTORY: RIGHT nipple black discoloration and hard. No discharge. COMPARISON: None. TECHNIQUE: 3 views of the right breast were obtained. FINDINGS: Fatty right breast. Palpable marker overlying the RIGHT nipple. No underlying subareolar parenchymal densities. Coarse dense nipple trabeculation. Ultrasound is pending. ULTRASOUND BREAST RIGHT TECHNIQUE: Ultrasound right breast focused area of concern. CLINICAL INFORMATION: N64.9 - Disorder of breast, unspecified FINDINGS: Ultrasound RIGHT breast at the nipple. Dense shadowing nipple tissue. No visualized subareolar lesions. No focal subareolar nodules or cystic lesions. No lesions to target for ultrasound-guided biopsy. Recommend further evaluation of the nipple with punch biopsy or skin scraping. Recommend dermatology consultation. Differential considerations are broad and include eczema/atopic dermatitis, seborrheic keratosis, Paget's disease of the nipple, or less likely melanoma. No reported nipple discharge. MM/MM diag RT tomosynthesis [id number] IMPRESSION: DENSITY: The breasts are almost entirely fatty. BI-RADS: 4 - Suspicious Finding - Biopsy Should Be Considered. FOLLOW UP: Biopsy Recommended Recommend dermatology consultation for RIGHT areola punch biopsy or skin scrapi ng
--- NOTE | 2025-02-08 14:00 | US_ITS ---
WS: [id number] RIGHT 3D TOMOSYNTHESIS DIGITAL MAMMOGRAPHY WITH CAD CLINICAL INFORMATION: N64.9 - Disorder of breast, unspecified HISTORY: RIGHT nipple black discoloration and hard. No discharge. COMPARISON: None. TECHNIQUE: 3 views of the right breast were obtained. FINDINGS: Fatty right breast. Palpable marker overlying the RIGHT nipple. No underlying subareolar parenchymal densities. Coarse dense nipple trabeculation. Ultrasound is pending. ULTRASOUND BREAST RIGHT TECHNIQUE: Ultrasound right breast focused area of concern. CLINICAL INFORMATION: N64.9 - Disorder of breast, unspecified FINDINGS: Ultrasound RIGHT breast at the nipple. Dense shadowing nipple tissue. No visualized subareolar lesions. No focal subareolar nodules or cystic lesions. No lesions to target for ultrasound-guided biopsy. Recommend further evaluation of the nipple with punch biopsy or skin scraping. Recommend dermatology consultation. Differential considerations are broad and include eczema/atopic dermatitis, seborrheic keratosis, Paget's disease of the nipple, or less likely melanoma. No reported nipple discharge. US/US breast RT limited* [id number] IMPRESSION: DENSITY: The breasts are almost entirely fatty. BI-RADS: 4 - Suspicious Finding - Biopsy Should Be Considered. FOLLOW UP: Biopsy Recommended Recommend dermatology consultation for RIGHT areola punch biopsy or skin scrapi ng
== END 2025-02-26 23:59 | disposition home or self-care (01) ==
LOC: RAD 13:31 → ONCMED 02-09 08:05
PROVIDERS: PCP Nurse Practitioner; Visit Provider Nurse Practitioner
DX: N64.9 Disorder of breast, unspecified (principal); R92.311 Mammographic fatty tissue density, right breast
CPT/HCPCS: 76642; 77061; G0279

== ENCOUNTER → 2025-03-05 09:32 | Outpatient (BNVA) | payer MEDICARE, MEDICAID, SELFPAY | PROVIDERS: PCP Nurse Practitioner; Visit Provider Dermatology | DX: L21.8 Other seborrheic dermatitis (principal); D22.5 Melanocytic nevi of trunk; L91.8 Other hypertrophic disorders of the skin; L30.9 Dermatitis, unspecified | CPT/HCPCS: 11104; 99204 ==

== ENCOUNTER → 2025-03-07 13:45 | Outpatient (BNVA) | payer MEDICARE, SELFPAY | PROVIDERS: PCP Nurse Practitioner; Referring Provider Nurse Practitioner; Visit Provider Specialist | DX: G40.919 Epilepsy, unspecified, intractable, without status epilepticus (principal); G40.011 Localization-related (focal) (partial) idiopathic epilepsy and epileptic syndromes with seizures of localized onset, intractable, with status epilepticus; G40.309 Generalized idiopathic epilepsy and epileptic syndromes, not intractable, without status epilepticus; G40.802 Other epilepsy, not intractable, without status epilepticus; R27.0 Ataxia, unspecified; R03.0 Elevated blood-pressure reading, without diagnosis of hypertension | CPT/HCPCS: 99214 ==

== ENCOUNTER 2025-03-08 12:58 | Outpatient (CLI) | payer MEDICARE, MEDICAID, SELFPAY ==
[2025-03-09 09:45] LABS: Levetiracetam Immunoassy 31.0 mcg/mL (6.0-46.0)
== END 2025-03-08 12:59 | disposition home or self-care (01) ==
LOC: LAB 13:01
PROVIDERS: PCP Nurse Practitioner; Visit Provider Specialist
DX: G40.919 Epilepsy, unspecified, intractable, without status epilepticus (principal)
CPT/HCPCS: 36415; 80175; 80177; 80185

== ENCOUNTER 2025-04-07 22:00 | Emergency (ER) | payer MEDICARE, MEDICAID, SELFPAY ==
[2025-04-07] VITALS (11 sets, daily range): BP systolic 156–174; BP diastolic 22–110; PULSE 83–100; RESP 16–36; O2SAT 89–100; BMI 39.5
--- NOTE | 2025-04-07 22:04 | CTR_ITS ---
PROCEDURE INFORMATION: Exam: CT Head Without Contrast Exam date and time: 04/07/2025 11:40 PM Age: 54 years old Clinical indication: EMS arrival for seizure with loss of airway. Intubated. TECHNIQUE: Imaging protocol: Computed tomography of the head without contrast. Radiation optimization: All CT scans at this facility use at least one of these dose optimization techniques: automated exposure control; mA and/or kV adjustment per patient size (includes targeted exams where dose is matched to clinical indication); or iterative reconstruction. COMPARISON: CT head wo con* [id number] 01/08/2025 10:58 AM RADIATION DOSE METRICS: Total DLP (mGy-cm): 2122.1 FINDINGS: Brain: See Cerebral ventricles finding. Cerebral ventricles: [id number] involutional changes of the ventricles and sulci. Paranasal sinuses: Visualized sinuses are unremarkable. No fluid levels. Mastoid air cells: Visualized mastoid air cells are well aerated. Bones: Unremarkable. No acute fracture. Soft tissues: Air dissecting into the soft tissues of the face, presumably from pneumomediastinum. Vasculature: Calcification of the cavernous portion of ICA. CT/CT head wo con* [id number] IMPRESSION: No definite acute intracranial abnormality.
--- NOTE | 2025-04-07 22:06 | XRR_ITS ---
PROCEDURE INFORMATION: Exam: XR Chest Exam date and time: 04/07/2025 10:25 PM Age: 54 years old Clinical indication: Device placement; Ett placement (vent status); Check S/P et and og placement; Additional info: Et tube placement/og placement TECHNIQUE: Imaging protocol: Radiologic exam of the chest. Views: 1 view. COMPARISON: CR XR chest 1V portable [id number] 01/08/2025 11:57 AM FINDINGS: Lungs: Unremarkable. No consolidation. Pleural spaces: Unremarkable. No pleural effusion. No pneumothorax. Heart/Mediastinum: See Soft tissues finding. Bones/joints: Unremarkable. Soft tissues: Probable pneumomediastinum with diffuse air throughout the subcutaneous tissues of the neck and chest and faint outline of the cardiac silhouette. ETT with tip several cm above the jim. Tip of the enteric tube not visualized completely, in the expected region of stomach. XR/XR chest 1V [id number] IMPRESSION: Probable pneumomediastinum with diffuse air throughout the subcutaneous tissues of the neck and chest and faint outline of the cardiac silhouette. ETT with tip several cm above the jim. Tip of the enteric tube not visualized completely, in the expected region of stomach. Likely laryngeal injury based on conversation with referring doctor. COMMENT: THIS REPORT CONTAINS FINDINGS THAT MAY BE CRITICAL TO PATIENT CARE. The exam findings were verbally communicated by me to ANA PAULA AGUILAR via telephone conference at 11:54 PM CDT on 04/07/2025. The findings were acknowledged and understood.
[2025-04-07] MEDS: propofol 1,000 MG/100 ML INJ 4.5 MG (22:30)
[2025-04-07 22:36] LABS: Hematocrit 40.7 % (37-53); Hemoglobin 14.10 g/dL (11.27-16.99); Mean Corpuscular HGB Conc 34.6 g/dL (30-55); Mean Corpuscular Hemoglobin 32.4 pg (27-33); Mean Corpuscular Volume 93.6 fl (82-101); Nucleated Red Blood Cells % 0 %; Platelet Count 257 10^3/cmm (157-399); Red Blood Count 4.35 10^6/uL (3.85-5.65); White Blood Count 18.85 10^3/uL (3.29-11.43)
--- NOTE | 2025-04-07 22:50 | NUR.SHIFT ---
Pt arrived seizing, no IV, IO placed to LLE by EMS has failed, IO placed to RLE by this nurse at 2208, 30 etomidate and 20 succ adminstered for intubation attempt, another 30 etomidate and 20 succ drawn up but not administered for 2nd intubation attempt, 30 prop adminstered at 2235, 30 prop administered at 2238, 30 prop administered at 2242, 10 vec administered at 2246 then successful intubation occured. 40 of prop bolus from pump then prop set at 4.5/hr
[2025-04-07 23:02] LABS: ABG PCO2 51.9 mmHg (35-45); ABG PH Result 7.23 (7.35-7.45); Arterial Blood Gas Hematocrit 46.9 % (42-52); Blood Gas Allen Test Pos; Blood Gas Operator Identificat gerca; Blood Gas Sample Site Radial, right; Blood Gas Sample Type Arterial; HCO3 ABG 21.9 mmol/L (22-26); PEEP 5.0 cmH20; PO2 ABG 86.2 mmHg (80.0-100.0); PO2 FiO2 Ratio Arterial Blood 172
[2025-04-07 23:03] LABS: Alanine Aminotransferase 23 U/L (0-41); Albumin Level 4.2 g/dL (3.5-5.2); Alkaline Phosphatase 141 U/L (40-130); Anion Gap 22.8 (5-19); Aspartate Amino Transferase 31 U/L (0-40); Blood Urea Nitrogen 9 mg/dL (6-20); Calcium 9.1 mg/dL (8.5-10.5); Carbon Dioxide 19 mmol/L (22-29); Chloride 96 mmol/L (98-107); Creatinine Clr Calc Pharmacy 123.6985; Globulin 3.4 g/dL (1.3-4.6); Glucose 136 mg/dL (65-115); Osmolality Calculated 279 mOsm/kg (285-295); Potassium 3.8 mmol/L (3.5-5.1); Sodium 134 mmol/L (136-145); Total Protein 7.6 g/dL (6.6-8.7)
[2025-04-07 23:06] LABS: Lactic Sepsis W/Reflex 7.9 mmol/L (0.5-2.2)
[2025-04-07 23:07] LABS: Reflex Lactate Order REFLEX LACTIC ORDERD
[2025-04-07 23:15] LABS: Magnesium 2.2 mg/dL (1.7-2.3)
[2025-04-07] MEDS: midazolam hcl 100 MG/100 ML BAG IV (23:15)
[2025-04-07 23:18] LABS: Troponin(5th) Baseline 13 ng/L (0-15)
[2025-04-07] MEDS: levETIRAcetam 2,000 MG/200 ML PREMIX 400 MG IV (23:19)
--- NOTE | 2025-04-07 23:42 | PC.NURSE ---
this nurse with pt to CT
[2025-04-08] VITALS (22 sets, daily range): BP systolic 125–162; BP diastolic 60–93; PULSE 61–86; RESP 15–22; O2SAT 99–100
[2025-04-08 00:29] LABS: Respiratory Syncytial Virus Ce NEGATIVE (Negative); SARS-CoV-2 PCR NEGATIVE (Negative)
--- NOTE | 2025-04-08 00:37 | W.ED.SEIZURE ---
HPI - Seizure General: Chief Complaint: Seizure Stated Complaint: seizure Time Seen by Provider: 04/07/25 22:53 History of Present Illness: HPI Narrative: 54-year-old male patient with a history of seizure disorder. Family states that he has a seizure every 5 or 6 months, and they are bad when he does. They say he has not been sick recently. They say he has been taking his medication. He presents in status epilepticus after starting to seize at home. Family tried a benzodiazepine dropper which did not seem to improve his seizure. EMS was called. He received intranasal Versed as well as IV lorazepam through an intraosseous line without significant improvement. He is nonresponsive, and is not answering questions as he is in status. He has a significant amount of secretions in his airway. Seizure History: Yes Place: Home Related Data Home Medications ?Medication ?Instructions ?Recorded ?Confirmed Compression hose 07/13/21 03/07/25 L.acidop,casei,lactis,rham-B.lact,kory 1 cap PO BID 01/08/25 03/07/25 625 mg (10 billion cell) capsule (Advanced Probiotic) Previous Rx's ?Medication ?Instructions ?Recorded Compression hose #1 ea 09/21/20 Diabetic Shoes with 3 pairs of #1 ea 03/23/22 inserts atorvastatin 40 mg tablet 40 mg PO BEDTIME 30 days #30 tabs 01/03/25 trazodone 100 mg tablet 100 mg PO BEDTIME #30 tabs 01/25/25 valsartan 40 mg tablet (Diovan) 40 mg PO DAILY #30 tabs 01/25/25 lacosamide 50 mg tablet 300 mg (6 x 50 mg) PO BID 90 days 03/07/25 #1,080 tabs levetiracetam 1,000 mg tablet 2,000 mg (2 x 1,000 mg) PO BID 03/07/25 #120 tabs phenytoin 50 mg chewable tablet 300 mg (6 x 50 mg) PO Q8H #500 tabs 03/07/25 Allergies Allergy/AdvReac Type Severity Reaction Status Date / Time No Known Allergies Allergy Verified 03/07/25 14:23 [facility] ED PFS: Medical History Essential hypertension C. difficile colitis Symptomatic cholelithiasis Status epilepticus Generalized seizure Developmental disorder Frontal lobe epilepsy Cellulitis of oral soft tissues Endotracheally intubated Status epilepticus Essential hypertension Generalized epilepsy Morbid obesity Hypertension Intellectual disability Peripheral vascular disease Venous stasis dermatitis Leukocytosis Seizure Surgical History History of laparoscopic cholecystectomy History of total colectomy August 2022 S/P vein stripping Family History Father Cancer Lung cancer Mother CAD (coronary artery disease) Other Diabetes Heart disease Hypertension Denies family history of Stroke Social History Smoking and tobacco/nicotine status: never used tobacco/nicotine Second hand smoke exposure: No Alcohol intake: never Substance/Drug Use: never Adopted: No Caregiver/support person: Yes Lives independently: No Household members: family Housing: House Marital status: Single Number of children: 0 service: No Current occupational status: disabled Current occupation: disabled Do you think of yourself as: Straight/Heterosexual Current gender identity: Male Physical Exam Const: EXAM LIMITATIONS: altered mental status GENERAL APPEARANCE: ill appearing ORIENTATION/CONSCIOUSNESS: Yes patient obtunded HENMT: COMMON NORMALS: normocephalic, atraumatic and Normal external nose present HEAD & SCALP: normocephalic and atraumatic FACE & SINUS: face symmetric NOSE: Normal external nose present and Normal nares present Chest: CHEST: Yes Symmetrical chest wall rise Resp: AUSCULTATION: rales and rhonchi Cardio: COMMON NORMALS: regular rhythm RATE: tachycardic RHYTHM: regular rhythm GI: INSPECTION: Yes abdominal distension Extremity: NARRATIVE EXTREMITY EXAM: Venous stasis dermatitis with ulceration bilaterally Procedures Intubation Time out performed: Yes sedative: Etomidate Mg Given: 30 paralytic: Succinylcholine Mg Given: 200 Laryngoscope: Kevin Assist Device Used: fiber optic device ET Tube Size: 7 ET Tube Uncuffed: No Tube Secured Depth (cm): 22 Tube Secured Location: lips Tube Placement Confirmation: visualized tube passing through cords, equal breath sounds bilaterally and confirmation by capnometry Intubation Complications: difficult intubation Course Vital Signs: Vital signs: Vital Signs Pulse Rate 77 04/08/25 05:40 Respiratory Rate 16 04/08/25 05:40 Blood Pressure 136/75 04/08/25 05:40 Pulse Oximetry 100 04/08/25 05:40 Oxygen Delivery Me thod Mechanical Ventil ation 04/07/25 23:51 Fraction of Inspir ed Oxygen 100 04/08/25 00:01 MDM - Seizure MDM Narrative Medical decision making narrative: This patient arrives in status epilepticus, with disordered breathing, and secretions in his airway. Oxygen saturations were in the low 90s on oxygen. He is not responding. He continues to have tonic-clonic movements. It was decided that intubation was necessary to give the patient enough medication to abort his seizure. RSI was attempted using etomidate and succinylcholine. Fiberoptic laryngoscope was used. Secretions blocked the camera on 3 attempts. Each time, the patient was bagged using [id number] technique, and saturations were never below 88%. Next, traditional laryngeal scope was used, airway was intubated, with color indicator turning yellow on intubation. The ET tube was likely dislodged, as the indicator then turned purple shortly afterwards while attempting to secure the airway. At this point, anesthesia assisted with fiberoptic camera laryngoscope, and successful intubation on first attempt. Again, saturations never fell below 88%. Patient is sedated with propofol, Versed. He was given 1 dose of vecuronium for paralysis. Airway is suction. On initial chest x-ray, there is subcutaneous air in the neck, and evidence of pneumomediastinum, likely from laryngeal tracheal injury due to difficult intubation. His vitals have been stable. Current saturations are 100% on ventilator. He is sinus in the 80s, with a blood pressure of 156/91. Initial laboratory shows a white blood cell count of 19 with no left shift. Potassium is 3.8, bicarbonate is 19. Lactic acid initially is 7.9. Swabs are negative for COVID flu and RSV. CK is only 96. Initial troponin is 13. EKG shows a sinus rhythm with a rate of 80, and a right bundle branch block with no acute ST wave changes. Keppra is infused, 2 g. 2 L bolus for lactic acidosis he will go to the ICU. Spoke with hospitalist. Concern is status epilepticus and need for potential continuous EEG monitoring, neurology consultation, etc. We have no neurology available currently. We also have no pulmonary available currently or critical care. Given his critical nature, and presence of pneumomediastinum on chest x-ray after likely laryngeal tracheal injury, he may require this. Transfer will be necessary to a tertiary care facility. We have a call out to [facility]. They have graciously accepted. Lab Data 04/07/25 22:32 04/07/25 22:32 Labs: Radiology Impressions Head CT 04/07/25 22:04 IMPRESSION: No definite acute intracranial abnormality. Chest X-Ray 04/07/25 22:06 IMPRESSION: Probable pneumomediastinum with diffuse air throughout the subcutaneous tissues of the neck and chest and faint outline of the cardiac silhouette. ETT with tip several cm above the jim. Tip of the enteric tube not visualized completely, in the expected region of stomach. Likely laryngeal injury based on conversation with referring doctor. COMMENT: THIS REPORT CONTAINS FINDINGS THAT MAY BE CRITICAL TO PATIENT CARE. The exam findings were verbally communicated by me to LACI AGUILAR via telephone conference at 11:54 PM CDT on 04/07/2025. The findings were acknowledged and understood. Laboratory Results WBC 18.85 10^3/uL (3.29-11.43) H 04/07/25 22:32 RBC 4.35 10^6/uL (3.85-5.65) 04/07/25 22:32 Hgb 14.10 g/dL (11.27-16.99) 04/07/25 22:32 Hct 40.7 % (37-53) 04/07/25 22:32 MCV 93.6 fl (82-101) 04/07/25 22:32 MCH 32.4 pg (27-33) 04/07/25 22: MCHC 34.6 g/dL (30-55) 04/07/25 22:32 RDW 15.1 % (12.1-15.1) 04/07/25 22:32 Plt Count 257 10^3/cmm (157-399) 04/07/25 22: MPV 9.5 fL (7.4-10.4) 04/07/25 22:32 Neut % (Auto) 66.2 % 04/07/25 22:32 Lymph % (Auto) 22.1 % 04/07/25 22:32 [place] % (Auto) 8.1 % 04/07/25 22:32 Eos % (Auto) 2.2 % 04/07/25 22:32 Baso % (Auto) 0.3 % 04/07/25 22:32 Neut # (Auto) 12.48 10^3/uL (1.8-7.7) H 04/07/25 22:32 Lymph # (Auto) 4.2 10^3/uL (0.8-4.8) 04/07/25 22:32 [place] # (Auto) 1.5 10^3/uL (0.2-0.9) H 04/07/25 22:32 Eos # (Auto) 0.4 10^3/uL (0.0-0.8) 04/07/25: Baso # (Auto) 0.1 10^3/uL (0.0-0.1) 04/07/25 22: Nucleated RBC % (auto) 0 % 04/07/25: Nucleated RBCs # 0.0 /100WBC 04/07/25 22:32 Specimen Type Arterial 04/07/25 22:50 Sample Site Radial, right 04/07/25 22:50 ABG pH 7.23 (7.35-7.45) L 04/07/25 22:50 ABG pCO2 51.9 mmHg (35-45) H 04/07/25 22:50 ABG pO2 86.2 mmHg (80.0-100.0) 04/07/25 22:50 ABG PO2/FiO2 Ratio 172 04/07/25 22:50 ABG HCO3 21.9 mmol/L (22-26) L 04/07/25 22:50 ABG Base Excess -6.2 mmol/L (-2.0-2.0) L 04/07/25 22:50 Ricardo Test Pos 04/07/25 22:50 Hematocrit 46.9 % (42-52) 04/07/25 22:50 O2 Delivery Device Vent 04/07/25 22:50 FiO2 50.0 % 04/07/25 22:50 PEEP 5.0 cmH20 04/07/25 22:50 [place] ID gerca 04/07/25 22:50 Sodium 134 mmol/L (136-145) L 04/07/25 22:32 Potassium 3.8 mmol/L (3.5-5.1) 04/07/25 22:32 Chloride 96 mmol/L (98-107) L 04/07/25 22:32 Carbon Dioxide 19 mmol/L (22-29) L 04/07/25 22:32 Anion Gap 22.8 (5-19) H 04/07/25 22:32 BUN 9 mg/dL (6-20) 04/07/25 22:32 Creatinine 1.0 mg/dL (0.7-1.2) 04/07/25 22:32 GFR Calculation 78.2 mL/min (90-130) L 04/07/25 22:32 Glucose 136 mg/dL (65-115) H 04/07/25 22:32 Calculated Osmolality 279 mOsm/kg (285-295) L 04/07/25 22:32 Lactic Acid 7.9 mmol/L (0.5-2.2) H* 04/07/25 22:32 Calcium 9.1 mg/dL (8.5-10.5) 04/07/25 22:32 Phosphorus 3.9 mg/dL (2.5-4.5) 04/07/25 22:32 Magnesium 2.2 mg/dL (1.7-2.3) 04/07/25 22:32 Total Bilirubin 0.4 mg/dL (0.15-1.2) 04/07/25 22:32 AST 31 U/L (0-40) 04/07/25 22:32 ALT 23 U/L (0-41) 04/07/25 22:32 Alkaline Phosphatase 141 U/L (40-130) H 04/07/25 22:32 Creatine Kinase 96 U/L (39-308) 04/07/25 22:32 Troponin T Baseline 13 ng/L (0-15) 04/07/25 22:32 Troponin T 120 Minute 41.23 ng/L (0-15) H 04/08/25 00:32 Delta Troponin T 28.23 ABS# (0-10) H* 04/08/25 00:32 Total Protein 7.6 g/dL (6.6-8.7) 04/07/25 22:32 Albumin 4.2 g/dL (3.5-5.2) 04/07/25 22:32 Globulin 3.4 g/dL (1.3-4.6) 04/07/25 22:32 Phenytoin 14.5 ug/mL (10-20) 04/07/25 22:32 Influenza A (PCR) Negative (Negative) 04/07/25 23:24 Influenza Type B (PCR) Negative (Negative) 04/07/25 23:24 RSV (PCR) Negative (Negative) 04/07/25 23:24 SARS-CoV-2 (PCR) Negative (Negative) 04/07/25 23:24 All radiology interpretation(s) finalized by discharge Critical Care Time Critical Care Time: Critical Care Time: Yes Total Critical Care Time: 60 Attestation: This case had a high probability of a clinically significant, sudden, or life threatening deterioration of this patient's condition which required my full and direct attention, intervention and personal management. Time is independent of any procedures performed. Discharge Plan Discharge Patient Disposition: Xfer Short-Term Hosp Clinical Impression: Status epilepticus, Crushing injury of trachea, Acquired pneumomediastinum, Acute hypoxic respiratory failure, Acute aspiration pneumonitis Condition: Critical Referrals: Candi Latif, PRODUCT DEVELOPMENT CHEMIST-C [Primary Care Provider, [facility]] Print Language: Upper Sorbian Coding Level of Care Code ED Verification Lead for Valeriog Margarita
[2025-04-08] MEDS: propofol 1,000 MG/100 ML INJ 8.17 MG IV (00:40)
--- NOTE | 2025-04-08 00:54 | ECG_ITS ---
[facility] Test Date: 2025-04-08 Pat Name: Jaziel Willis Department: Room: Gender: Male Pin Setter: : 1970 Requested By: Laci Daly Order Number: [id number] Tucker MD: FAMILIA FONTANEZ Measurements Intervals [place] Rate: 80 P: 58 WI: 165 QRS: 77 QRSD: 150 T: 57 QT: 397 QTc: 461 Interpretive Statements SINUS RHYTHM RIGHT BUNDLE BRANCH BLOCK [120+ ms QRS DURATION, UPRIGHT V1, 40+ ms S IN I/aVL/V4/V5/V6] Compared to ECG 01/08/2025 08:44:56 No significant changes Electronically Signed On 04-10-2025 20:09:20 CDT by FAMILIA FONTANEZ [email or web address]
[2025-04-08 01:05] LABS: Troponin 5 2HR 41.23 ng/L (0-15)
[2025-04-08 01:06] LABS: Troponin 5 2HR Delta 28.23 ABS# (0-10)
--- NOTE | 2025-04-08 02:15 | PC.NURSE ---
soft restraints placed on bilateral wrists due to attempts to pull ET tube
[2025-04-08] MEDS: propofol 1,000 MG/100 ML INJ 24.49 MG IV (04:51)
--- NOTE | 2025-04-08 05:25 | PC.NURSE ---
Report called to [facility] [address]ia James RN
[2025-04-08 05:58] LABS: Troponin 5 6HR 29.12 ng/L (0-15)
[2025-04-08 05:59] LABS: Troponin 5 6HR Delta 16.12 ng/L (0-12)
--- NOTE | 2025-04-08 06:52 | PC.NURSE ---
called pt mother to advise her that pt enroute to [facility], called [address] nurses station to advise that pt is departing [facility]
--- NOTE | 2025-04-08 06:56 | PC.NURSE ---
[facility] run [facility]
--- NOTE | 2025-04-08 12:15 | PC.NURSE ---
F[employer] AGENT NURSE, LIYAH, HAD REMAINING MEDICATIONS LEFT OVER SITTING ON COUNTER. THIS NURSE AND ARASH RN COUNTED AND WASTED REMAINING MEDICATIONS FOUND ON THE COUNTER. TOTALS ARE FOLLOWS: PROPOFOL: 300 MG, 30 ML SUCCINYLCHOLINE: 180 MG, 9 ML ETOMIDATE: 6 MG, 3 ML.
== END 2025-04-08 07:32 | disposition short-term general hospital (02) ==
PROVIDERS: Emergency Provider Emergency Medicine; PCP Nurse Practitioner
DX: G40.901 Epilepsy, unspecified, not intractable, with status epilepticus (principal); S17.0 Crushing injury of larynx and trachea; T88.4XXA Failed or difficult intubation, initial encounter; J96.01 Acute respiratory failure with hypoxia; J69.0 Pneumonitis due to inhalation of food and vomit; J98.59 Other diseases of mediastinum, not elsewhere classified; Z79.899 Other long term (current) drug therapy; I10 Essential (primary) hypertension; F89 Unspecified disorder of psychological development; G40.401 Other generalized epilepsy and epileptic syndromes, not intractable, with status epilepticus; I73.9 Peripheral vascular disease, unspecified; Z11.52 Encounter for screening for COVID-19; X58.XXXA Exposure to other specified factors, initial encounter
CPT/HCPCS: 31500; 36415; 36600; 51702; 70450; 71045; 80053; 80185; 82550; 82803; 83605; 83735; 84100; 84484; 85025; 87040; 87637; 93005; 94002; 94799; 96365; 96366; 96367; 99285; 99291; 99292; J1953; J2250; J2704; J7030

== ENCOUNTER → 2025-06-07 14:51 | Outpatient (BNVA) | payer MEDICARE, MEDICAID, SELFPAY | PROVIDERS: PCP Nurse Practitioner; Visit Provider Student in an Organized Health Care Education/Training Program | DX: Z71.89 Other specified counseling (principal) | CPT/HCPCS: 99213 ==

== ENCOUNTER 2025-07-02 10:15 | Emergency (ER) | payer MEDICARE, MEDICAID, SELFPAY ==
[2025-07-02] VITALS (13 sets, daily range): BP systolic 102–167; BP diastolic 57–83; PULSE 69–117; RESP 16–19; O2SAT 91–99; BMI 40.8
[2025-07-02] MEDS: etomidate 2 mg/mL INJ SDV 10 mL 30 MG IVP (10:22)
[2025-07-02] MEDS: vecuronium 10 mg SDV IVP (10:22)
--- NOTE | 2025-07-02 10:23 | XR_ITS ---
WS: [id number] Portable AP semiupright chest, Clinical Data: POST INTUBATION Comparison: Portable chest, 04/07/2025 Findings: No nodules, masses or effusions are seen. The heart is normal. The pulmonary vascularity is not increased. No pneumonia or pneumothorax is seen. The endotracheal tube is above the jim and the nasogastric tube appears to end in the stomach. XR/XR chest 1V portable [id number] Impression: Satisfactory placement of endotracheal tube and nasogastric tube.
--- OUTSIDE RECORDS SUMMARY | 2025-07-02 10:24 | XMS_ITS | Clinical Summary ---
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 60 Tablet 01/24/2022 Active traZODone (DESYREL) 100 mg tablet Take 100 mg by mouth daily at bedtime. 03/17/2019 Active tamsulosin (FLOMAX) 0.4 mg capsule Take 0.4 mg by mouth daily. 03/17/2019 Active furosemide (LASIX) 20 mg tablet Take 20 mg by mouth daily. 03/17/2019 Active lacosamide (VIMPAT) 200 mg tablet Take 200 mg by mouth 2 times daily. 12/09/2022 Active phenytoin (DILANTIN INFATAB) 50 mg Tablet, Chewable Take 4 Tablets (200 mg) by mouth every 8 hours. 90 Tablet 3 12/24/2022 Active clonazePAM (KlonoPIN) 0.5 mg TabletIndicatio ns:Seizure (CMS/HCC) Take 0.5 Tablets (0.25 mg) by mouth 2 times daily. 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 Status epilepticus Encounters Date Type Department Care Team Description 06/19/2025 External Device Data [facility] Provider, Abstract 06/12/2025 External Device Data [facility] Provider, Abstract 06/12/2025 External Device Data [facility] Provider, Abstract 05/15/2025 External Device Data [facility] Provider, Abstract 05/15/2025 External Device Data [facility] Provider, Abstract 04/10/2025 External Device Data [facility] Provider, Abstract 04/10/2025 External Device Data [facility] Provider, Abstract 04/10/2025 External Device Data [facility] Provider, Abstract 04/09/2025 Orders Only [facility] [address] [place] [address] Provider, Abstract 04/08/2025 9:17 AM CDT - 04/12/2025 1:22 PM CDT Hospital Encounter [facility] Medical Telemetry [address] [place] [phone] Katy Ayala MD Anand, Neesha, MD Shaffer, Elizabeth Anne, MD Nerella, Ravi V., MD Status epilepticus ([facility]) Discharge Disposition: Home or Self Care 04/08/2025 Travel 04/08/2025 Chart Note [facility] [address] [place] [phone] Katy Ayala MD from Last 3 Months Family History Medical History Relation Name Comments Heart Disease Mother Respiratory Disease Mother Unknown Mother Unknown Sister Relation Name Status Comments Mother Sister Social History Tobacco Use Types Packs/Day Years Used Date Smoking Tobacco: Never Smokeless Tobacco: Never Alcohol Use Standard Drinks/Week Comments Never 0 (1 standard drink = 0.6 oz pur e alcohol) Feeling Safe Answer Date Recorded Are you in a relationship wi th someone who hurts you emotionally and/or physically? 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 Gender Identity Not on file Sexual Orientation Not on file Last Filed Vital Signs Vital Sign Reading Time Taken Comments Blood Pressure 148/91 04/12/2025 7:00 AM CDT Pulse 60 04/12/2025 7:00 AM CDT Temperature 36.3 C (97.3 F) 04/12/2025 7:00 AM CDT Respiratory Rate 20 04/12/2025 7:00 AM CDT Oxygen Saturation 95% 04/12/2025 10: 49 AM CDT Inhaled Oxygen Concentration - - Weight 154.6 kg (340 lb 13.3 oz) 04/10/2025 4:18 AM CDT Height 185.4 cm (6' 1 ) 04/08/2025 3:30 PM CDT Body Mass Index 44.97 04/08/2025 3:30 PM CDT Plan of Treatment Health Maintenance Due Date Last Done Comments Pre-Diabetes and Diabetes Screening 1970 DTAP/TDAP/TD VACCINES (1 - Tdap) 11/21/1990 HEPATITIS B VACCINES (1 of 3 - 19+ 3-dose series) 10/29 COLORECTAL SCREENING 11/21/2016 Colorectal Cancer Screening 11/21/2016 FIT-DNA Q 3 years 11/21/2016 FIT/FOBT Q 1 year 11/21/2016 Flex Sig/CT Colonography Q 5 years 11/21/2016 ZOSTER VACCINE (1 of 2) 11/21/2021 INFLUENZA VACCINE (#1) 2025 Procedures Procedure Name Priority Date/Time Associated Diagnosis Comments TELEMETRY REPORT 04/13/2025 3:17 PM CDT CBC WITHOUT DIFFERENTIAL Routine 04/12/2025 8:12 AM CDT BASIC METABOLIC PANEL Routine 04/12/2025 8:12 AM CDT POC GLUCOSE Routine 04/12/2025 7:23 AM CDT BASIC METABOLIC PANEL Routine 04/12/2025 4:33 AM CDT POC GLUCOSE Routine 04/12/2025 4:13 AM CDT POC GLUCOSE Routine 04/11/2025 11:57 PM CDT POC GLUCOSE Routine 04/11/2025 9:22 PM CDT POC GLUCOSE Routine 04/11/2025 6:04 PM CDT POC GLUCOSE Routine 04/11/2025 12:28 PM CDT POC GLUCOSE Routine 04/11/2025 7:43 AM CDT POC GLUCOSE Routine 04/10/2025 9:15 PM CDT POC GLUCOSE Routine 04/10/2025 5:14 PM CDT POC GLUCOSE Routine 04/10/2025 12:10 PM CDT XR CHEST PA OR AP 1 VW Routine 8:20 AM CDT POC GLUCOSE Routine 04/10/2025 7:36 AM CDT EEG VIDEO MONITORING Routine 04/10/2025 6:49 AM CDT PHOSPHORUS Routine 04/10/2025 5:46 AM CDT MAGNESIUM LEVEL Routine 04/10/2025 5:46 AM CDT BASIC METABOLIC PANEL Routine 04/10/2025 5:46 AM CDT CBC WITHOUT DIFFERENTIAL Routine 04/10/2025 5:46 AM CDT BLOOD GAS ARTERIAL Routine 04/09/2025 8: 38 PM CDT POC GLUCOSE Routine 04/09/2025 5:00 PM CDT EXTUBATION Routine 04/09/2025 3:08 PM CDT SPUTUM CULTURE WITH GRAM STAIN Routine 04/09/2025 10:46 AM CDT PNEUMONIA PATHOGEN PCR PANEL Routine 04/09/2025 10:46 AM CDT POC GLUCOSE Routine 04/09/2025 9:54 AM CDT EEG VIDEO MONITORING Routine 04/09/2025 8:32 AM CDT PHENYTOIN LEVEL, TOTAL Routine 4:18 AM CDT PHOSPHORUS Routine 04/09/2025 4:18 AM CDT MAGNESIUM LEVEL Routine 04/09/2025 4:18 AM CDT BASIC METABOLIC PANEL Routine 04/09/2025 4:18 AM CDT CBC WITHOUT DIFFERENTIAL Routine 04/09/2025 4:18 AM CDT POC GLUCOSE Routine 04/09/2025 4:17 AM CDT POC GLUCOSE Routine 04/09/2025 12:52 AM CDT POC GLUCOSE Routine 04/08/2025 8:15 PM CDT POC GLUCOSE Routine 04/08/2025 6:[address] CHEST W CONTRAST Stat 04/08/2025 5 :[address] SOFT TISSUE NECK W CONTRAST Stat 04/08/2025 5:00 PM CDT EXTRA TUBE (URINE CAZARES) Routine 04/08/2025 11:34 AM CDT URINALYSIS W/REFLEX MICROSCOPIC Routine 04/08/2025 11:34 AM CDT DRUG SCREEN, URINE Routine 04/08/2025 11 :34 AM CDT URINE CULTURE Routine 04/08/2025 11:34 AM CDT EKG 12-LEAD Routine 04/08/2025 10:45 AM CDT XR ABDOMEN FOR FEEDING TUBE 1 VW Stat 04/08/2025 10:26 AM CDT XR CHEST PA OR AP 1 VW Stat 10:26 AM CDT AMMONIA LEVEL Routine 04/08/2025 10:26 AM CDT TROPONIN Routine 04/08/2025 10:26 AM CDT PHOSPHORUS Routine 04/08/2025 10:26 AM CDT MAGNESIUM LEVEL Routine 04/08/2025 10:26 AM CDT COMPREHENSIVE METABOLIC PANEL Stat 04/08/2025 10:26 AM CDT PROTIME-INR Routine 04/08/2025 10:26 AM CDT CBC WITHOUT DIFFERENTIAL Routine 04/08/2025 10:26 AM CDT PHENYTOIN LEVEL, TOTAL AND FREE Routine 04/08/2025 10:26 AM CDT LEVETIRACETAM LEVEL Routine 04/08/2025 1 0:26 AM CDT LACOSAMIDE LEVEL Routine 04/08/2025 10:2 6 AM CDT POC LACTIC ACID Routine 04/08/2025 10:10 AM CDT BLOOD GAS ARTERIAL Routine 04/08/2025 10 :10 AM CDT POC GLUCOSE Routine 04/08/2025 9:53 AM CDT EEG VIDEO MONITORING Stat 04/08/2025 9:46 AM CDT EEG VIDEO MONITORING Stat 04/08/2025 9:44 AM CDT COMPREHENSIVE METABOLIC PANEL Routine 04/07/2025 2:23 PM CDT from Last 3 Months Results * TELEMETRY REPORT (04/13/2025 3:17 PM CDT) us Provider Scanning ECG ORDERABLES Final Result * (ABNORMAL) CBC WITHOUT DIFFERENTIAL (04/12/2025 8:12 AM CDT) Only the most recent of4 resultswithin the time period is included. WBC 10.7 4.8 - 10.8 K/uL 04/12/2025 8:23 AM T [facility] RBC 3.95(L) 4.60 - 6.20 M/uL 04/12/2025 8:23 AM T [facility] HEMOGLOBIN 12.6(L) 14.0 - 18.0 g/dL 04/12/2025 8:23 AM T [facility] HEMATOCRIT 37.6(L) 41.0 - 53.0 % 04/12/2025 8:23 AM T [facility] MCV 95.2 84.0 - 103.0 fL 04/12/2025 8:23 AM T [facility] MCH 31.9 27.0 - 34.0 pg 04/12/2025 8:23 AM T [facility] MCHC 33.5 30.0 - 35.0 g/dL 04/12/2025 8:23 AM T [facility] PLATELETS 202 140 - 440 K/uL 04/12/2025 8:23 AM T [facility] MPV 9.2 8.9 - 12.8 fL 04/12/2025 8:23 AM CDT [facility] RDW 15.3(H) 11.0 - 14.5 % 04/12/2025 8:23 AM CDT [facility] RDW-STDEV 53.4 37.0 - 54.0 fL 04/12/2025 8:23 AM CDT [facility] Blood Venipuncture / Unknown 04/12/2025 8:12 AM CDT 04/12/2025 8:16 AM CDT Xiomara Adam OFFICE CLEANER-BC HEMATOLOGY ORDERABLE S Final Result [facility] CLIA # [id number] Critical access hospital[address] [address] [place] [address] * BASIC METABOLIC PANEL (04/12/2025 8:12 AM CDT) Only the most recent of4 resultswithin the time period is included. SODIUM 145 136 - 145 mmol/L 04/12/2025 8:49 AM [facility] POTASSIUM 3.5 3.5 - 5.1 mmol/L 04/12/2025 8:49 AM T [facility] CHLORIDE 106 98 - 107 mmol/L 04/12/2025 8:49 AM [facility] CO2 27 22 - 29 mmol/L 04/12/2025 8:49 AM T [facility] CALCIUM 9.2 8.6 - 10.0 mg/dL 04/12/2025 8:49 AM T [facility] BUN 20 6 - 20 mg/dL 04/12/2025 8:49 AM T [facility] CREATININE 0.67 0.67 - 1.17 mg/dL 04/12/2025 8:49 AM T [facility] GLUCOSE 91 74 - 99 mg/dL 04/12/2025 8:49 AM T [facility] GFR >60 >=60 mL/min/1.7 3 sq meter 04/12/2025 8:49 AM CDT [facility] Comment:eGFR calculated with 2020 CKD-EPI equation. Vegetarian diet, extremely high or low muscle mass, and may affect results. Cystatin C with Glomerular Filtration Rate is a suitable alternative for these patients. ANION GAP 12 9 - 20 mmol/L 04/12/2025 8:49 AM CDT [facility] Blood Venipuncture / Unknown 04/12/2025 8:12 AM CDT 04/12/2025 8:16 AM CDT us Xiomara Adam OFFICE CLEANER- CHEMISTRY ORDERABLES Final Result Performing Organization Address [facility]/ZIP Co de Phone Number [facility] CLIA # [id number] Critical access hospital[address] [id number] * POC GLUCOSE (04/12/2025 7:23 AM CDT) Only the most recent of18 resultswithin the time period is included. GLUCOSE POC 87 74 - 99 mg/dL 04/12/2025 7:23 AM CDT [facility] SPECIMEN SOURCE, GLUCOSE POC Capillary 04/12/2025 7:23 AM CDT [facility] COMMENT, GLU POC Alerted Nurse/MARY/DR 04/12/2025 7:23 AM CDT [facility] Blood, whole 04/12/2025 7:23 AM CDT 04/12/2025 7:51 AM CDT us Cole Segal MD POINT OF CARE TESTING Final R esult Performing Organization Address City/[facility]/ZIP Co de Phone Number [facility] CLIA # [id number] Critical access hospital[address] [phone] * XR CHEST PA OR AP 1 VW (04/10/2025 8:20 AM CDT) Only the most recent of2 resultswithin the time period is included. Anatomical Region Laterality Modality Chest Computed Radiogr aphy 04/10/2025 8:20 AM CDT Impressions 04/10/2025 11:18 AM CDT IMPRESSION: Please see below. EXAM: XR CHEST PA OR AP 1 VW DATE/TIME OF EXAM: 04/10/2025 8:20 AM REASON FOR STUDY: Other - Please see comments, Comment: pneumomediastinum DIAGNOSIS: See Reason for Exam COMPARISON: April 08, 2025 TECHNIQUE: A frontal radiograph of the chest was obtained. FINDINGS: Cardiac silhouette remains enlarged. No focal airspace opacity. No pleural effusion or pneumothorax. No acute bony abnormality. Subcutaneous emphysema in the neck base. IMPRESSION: 1. Pneumomediastinum visible on prior CT thorax is not well visualized radiographically. Subcutaneous emphysema is visible in the neck base. 2. Mild cardiomegaly. Narrative Procedure Note MirzaCole MD - 04/10/2025 IMPRESSION: Please see below. EXAM: XR CHEST PA OR AP 1 VW DATE/TIME OF EXAM: 04/10/2025 8:20 AM REASON FOR STUDY: Other - Please see comments, Comment: pneumomediastinum DIAGNOSIS: See Reason for Exam COMPARISON: April 08, 2025 TECHNIQUE: A frontal radiograph of the chest was obtained. FINDINGS: Cardiac silhouette remains enlarged. No focal airspace opacity. No pleural effusion or pneumothorax. No acute bony abnormality. Subcutaneous emphysema in the neck base. IMPRESSION: 1. Pneumomediastinum visible on prior CT thorax is not well visualized radiographically. Subcutaneous emphysema is visible in the neck base. 2. Mild cardiomegaly. Katy Ayala MD DIAGNOSTIC IMAGING ORDERA BLES Final Result * PHOSPHORUS (04/10/2025 5:46 AM CDT) Only the most recent of3 resultswithin the time period is included. Pathologist [facility] PHOSPHORUS 2.5 2.5 - 4.5 mg/dL 04/10/2025 7:20 AM CDT [facility] Blood Venipuncture / Unknown 04/10/2025 5:46 AM CDT 04/10/2025 6:05 AM CDT Tata Romero MD CHEMISTRY ORDERABLES Final Resul t Performing Organization Address [facility] de Phone Number [facility] [employer] [facility] CLIA # [id number] [address] [address] * MAGNESIUM LEVEL (04/10/2025 5:46 AM CDT) Only the most recent of3 resultswithin the time period is included. Pathologist [facility] MAGNESIUM 2.2 1.6 - 2.6 mg/dL 04/10/2025 7:20 AM CDT [facility] Blood Venipuncture / Unknown 04/10/2025 5:46 AM CDT 04/10/2025 6:05 AM CDT Tata Romero MD CHEMISTRY ORDERABLES Final Resul t Performing Organization Address [facility] de Phone Number [facility] [employer] [facility] CLIA # [id number] [address] [place] [address] * (ABNORMAL) BLOOD GAS ARTERIAL (04/09/2025 8:38 PM CDT) Only the most recent of2 resultswithin the time period is included. PH BLOOD POC 7.41 7.35 - 7.45 04/09/2025 8:38 PM CDT [facility] PCO2 POC 40 35 - 45 mm Hg 04/09/2025 8:38 PM CDT [facility] PO2 POC 68(L) 80 - 105 mm Hg 04/09/2025 8:38 PM CDT [facility] HCO3 (CALC) POC 25 22 - 26 mmol/L 04/09/2025 8:38 PM CDT [facility] HEMOGLOBIN POC 13.2 12.0 - 18.0 g/dL 04/09/2025 8:38 PM CDT [facility] BASE EXCESS POC 1 -2 - 3 mmol/L 04/09/2025 8:38 PM T [facility] O2 SATURATION POC 97 95 - 98 % 04/09/2025 8:38 PM T [facility] SODIUM POC 135(L) 138 - 146 mmol/L 04/09/2025 8:38 PM T [facility] POTASSIUM POC 3.6 3.5 - 4.9 mmol/L 04/09/2025 8:38 PM T [facility] HEMATOCRIT POC 40 38 - 51 % 04/09/2025 8:38 PM T [facility] PH TEMP CORRECT 7.41 7.35 - 7.45 04/09/2025 8:38 PM [facility] PCO2 TEMP CORRECT 40 35 - 45 mm Hg 04/09/2025 8:38 PM T [facility] PO2 TEMP CORRECT 68(L) 80 - 105 mm Hg 04/09/2025 8:38 PM T [facility] SPECIMEN SOURCE, GASES POC Arterial 04/09/2025 8:38 PM [facility] CALCIUM IONIZED POC 4.7(L) 4.8 - 5.2 mg/dL 04/09/2025 8:38 PM [facility] TCO2 (CALC) POC 27 23 - 27 mmol/L 04/09/2025 8:38 PM T [facility] PUNC SITE POC ART PUNCT 04/09/2025 8:38 PM T [facility] Blood, arterial 04/09/2025 8 :38 PM CDT 04/09/2025 8:39 PM CDT us Katy Ayala MD ABG ORDERABLES Final Res ult [facility] CLIA # [id number] [address] [address] [place] [address] * (ABNORMAL) PNEUMONIA PATHOGEN PCR PANEL (04/09/2025 10:46 AM CDT) Staphylococcus aureus by PCR DETECTED (A) Not Detected 04/09/2025 1:19 PM CDT [facility] mecA/C and MREJ (methicillin-resis tance gene) by PCR DETECTED (A) Not Detected 04/09/2025 1:19 PM CDT [facility] Comment:Indicates presumptiv e methicillin (oxacillin) resistance. Subculture and susceptibility testing are required in order to assign a resistant or sensitive phenotype to each pathogenic isolate recovered from the sample. The mecA and MREJ genes may be from a nonpathogenic normal respiratory evonne or contamination of a Staphylococcus species and not from the Staphylococcus aureus detected. Sputum SPUTUM SPECIMEN OBTAINED BY ASPIRATION / Unknown Collection / Unknown 04/09/2025 10:46 AM CDT 04/09/2025 10:53 AM CDT Narrative [facility] - 04/09/2025 1:19 PM CDT Presumptive MRSA called to Shabnam De Luna RN ([id number]) by Ced Palencia on 04/09/2025 at 1:13 PM with verbal readback. NOTE: Per the concrete pipe plant supervisor, this current lot of reagent may be insensitive for the full detection of adenoviruses. If adenovirus is within the differential diagnosis, the specimen may be submitted to a reference laboratory for further testing. If desired, order [id number] Lab Test, stating Adenovirus by PCR testing in the ordering comment and notify the Microbiology lab. A negative result does not exclude the possibility of infection. A semi-quantitative (copies/mL) result is provided for bacteria. This panel does not distinguish between nucleic acid from live or bacteria or virus. Culture is needed for recovery of bacterial isolates and antimicrobial susceptibility testing. The Film Array Pneumonia Pathogen PCR Panel is a multiplexed nucleic acid detection test for 33 targets of bacteria, viruses, and resistance markers in respiratory specimens that cause pneumonia. Bacteria: Acinetobacter calcoaceticus-baumannii complex Enterobacter cloacae complex Escherichia coli Haemophilus influenzae Klebsiella aerogenes Klebsiella oxytoca Klebsiella pneumoniae group Moraxella catarrhalis Proteus spp. Pseudomonas aeruginosa Serratia marcescens Staphylococcus aureus Streptococcus agalactiae Streptococcus pneumoniae Streptococcus pyogenes Atypical Bacteria: Chlamydia pneumoniae Legionella pneumophila Mycoplasma pneumoniae Viruses: Adenovirus Coronavirus (229E, OC43, HKU1, NL63) Human Metapneumovirus Human Rhinovirus/Enterovirus Influenza A Influenza B Parainfluenza Virus Respiratory Syncytial Virus Antimicrobial Resistance Genes: CTX-M IMP KPC NDM OXA-48-like VIM mecA/C and MREJ Xiomara Adam OFFICE CLEANER- MICROBIOLOGY - GENER AL ORDERABLES Final Result [facility] CLIA # [id number] [address] [address] * (ABNORMAL) SPUTUM CULTURE WITH GRAM STAIN (04/09/2025 10:46 AM CDT) CULTURE METHICILLIN RESISTANT STAPHYLOCOCCUS AUREUS(A) CARLINE MCG/ML 04/11/2025 6:31 AM CDT [facility] GRAM STAIN Smear contains </=10 squamous epithelial cells per low power field 04/11/2025 6:31 AM CDT [facility] GRAM STAIN <25 PMN WBC/LPF 6:31 AM CDT [facility] GRAM STAIN 2+ (Few) Gram positive cocci 04/11/2025 6:31 AM CDT [facility] Sputum SPUTUM SPECIMEN OBTAINED BY ASPIRATION / Unknown Collection / Unknown 04/09/2025 10:46 AM CDT 04/09/2025 10:53 AM CDT Narrative Organism Antibiotic Method Susceptibility Staphylococcus aureus, Methicillin resistant OXACILLIN (Nafcillin) CARLINE MCG/ML >=4 mcg/mL: Resistant Staphylococcus aureus, Methicillin resistant VANCOMYCIN CARLINE MCG/ML <=0.5 mcg/mL: Susceptible Staphylococcus aureus, Methicillin resistant ERYTHROMYCIN CARLINE MCG/ML >=8 mcg/mL: Resistant Staphylococcus aureus, Methicillin resistant CLINDAMYCIN CARLINE MCG/ML 0.25 mcg/mL: Susceptible Staphylococcus aureus, Methicillin resistant DOXYCYCLINE CARLINE MCG/ML <=0.5 mcg/mL: Susceptible Staphylococcus aureus, Methicillin resistant TRIMETHOPRIM/ SULFAMETHOXAZOLE CARLINE MCG/ML <=10 mcg/mL: Susceptible Comment:If Inpatient, place patient in Contact Precautions - Gown and gloves for every entry into patient rooms. Xiomara Jair [facility] MICROBIOLOGY - GENER AL ORDERABLES Final Result [facility] CLIA # [id number] [address] [place] [address] * EEG VIDEO MONITORING (04/09/2025 8:32 AM CDT) Narrative Diane Gaytan MD - 04/09/2025 8:32 AM CDT Diane Gaytan MD 04/10/2025 7:48 AM [facility] CONTINUOUS ELECTROENCEPHALOGRAM (EEG) REPORT Patient Name: Cece Willis Patient Patient : 1970 Patient Age: 54 y.o. Patient gender: male Ordering provider: Katy Ayala MD Date(s) of Service: START TIME: 1731 on 04/08/25 END TIME: 1427 on 04/09/25 Type of study: Continuous 24 hr Video EEG Monitoring Report Reason for study/diagnosis: 54 y.o. male with intractable epilepsy. EEG was performed to evaluate for seizures. Current medications: Current Outpatient Medications Medication Instructions Eliquis 5 mg tablet TAKE ONE TABLET BY MOUTH TWICE DAILY ONE AT 900AM AND 900PM furosemide (LASIX) 20 mg, Oral, DAILY lacosamide (VIMPAT) 200 mg, Oral, TWO TIMES DAILY levETIRAcetam (KEPPRA) 2,000 mg, Oral, TWO TIMES DAILY phenytoin (DILANTIN INFATAB) 200 mg, Oral, EVERY 8 HOURS tamsulosin (FLOMAX) 0.4 mg, Oral, DAILY traZODone (DESYREL) 100 mg, Oral, DAILY AT BEDTIME Technical Summary: Prolonged video monitoring EEG study performed with standard 10-20 electrodes. Data are recorded using an [employer] or [employer] digital EEG machine. ARTIFACTS: yes INTERRUPTIONS: no EEG Details: The patient's video portion was simultaneously reviewed as appropriate with the patient's EEG recording. EEG BACKGROUND: Posterior dominant rhythm: there is no well-developed posterior dominant rhythm. Background demonstrates polymorphic delta and some theta slowing of low voltage with superimposed excess beta. Reactivity: present: no Variability: present: yes FOCAL ABNORMALITIES: no EPILEPTIFORM/PERIODIC ABNORMALITIES: yes; abundant right fronto-temporal sharp waves SEIZURE: no MARKED EVENTS: no SLEEP: Stage II sleep is identified: no EVIDENCE OF STATE CHANGE: yes ACTIVATION: Hyperventilation: not performed Photic stimulation: not performed SUMMARY OF FINDINGS 1731 on 04/08 - 1447 on 04/09: moderate to severe diffuse slowing with excess beta, abundant right frontotemporal sharp waves. No seizures. INTERPRETATION: This continuous EEG is abnormal due to the presence of: Diffuse background slowing - this is indicative of bilateral cerebral dysfunction and is non specific for etiology but can be seen in toxic, metabolic, or infectious states. Excess beta - typically the result of sedative medications and may be contributing to the level of encephalopathy. Epileptiform discharges in the right frontotemporal region - indicative of a lower threshold for focal onset seizures emanating from that region, although no seizures were captured. No definite electrographic seizures were captured. INTERPRETING PHYSICIAN: Diane Gaytan MD 04/09/2025 8:33 AM us Tata Romero MD NEUROLOGY ORDERABLES Edited Resu lt - Final * PHENYTOIN LEVEL, TOTAL (04/09/2025 4:18 AM CDT) PHENYTOIN TOTAL 11.5 10.0 - 20.0 ug/mL 04/09/2025 3:24 PM CDT [facility] [employer] [facility] Blood Venipuncture / Unknown 04/09/2025 4:18 AM CDT 04/09/2025 4:55 AM CDT us Esteban Deal MD CHEMISTRY ORDERABLES Final Re sult [facility] [employer] [facility] CLIA # [id number] [address] [address] [place] [address] * CT CHEST W CONTRAST (04/08/2025 5:00 PM CDT) Anatomical Region Laterality Modality Chest Computed Tomogra phy 04/08/2025 5:00 PM CDT Impressions 04/08/2025 5:23 PM CDT IMPRESSION: Please see below. Exam: CT CHEST W CONTRAST Date/Time of Exam: 04/08/2025 5:00 PM Reason For Exam: See Diagnosis. Diagnosis: See Reason for Exam. Technique: CT of the chest was performed following the administration of intravenous contrast. Post-processing was performed including sagittal and coronal reformations . Contrast (if used): IOPAMIDOL 61 % INTRAVENOUS SOLUTION (MULTI-DOSE BULK PACK) Given:85 mL. Comparison: CT soft tissue neck 04/08/2025.. FINDINGS: Endotracheal tube terminates superior to the level of the jim. Thoracic inlet: There are low-attenuation thyroid nodules which could be better assessed with ultrasound if clinically indicated. The thoracic inlet is otherwise within normal limits. Lymph Nodes: There are no pathologic axillary, mediastinal or hilar lymph nodes by size criteria. Thoracic aorta: The thoracic aorta is nonaneurysmal. Heart: The heart is normal in size. There is no pericardial effusion. Pneumomediastinum of the superior and anterior mediastinum present. No pneumomediastinum about the posterior mediastinum or course of the esophagus is present. Tracheobronchial tree: The tracheobronchial tree is within normal limits. Lungs: Consolidative atelectasis versus airspace disease of the left lower lobe present. Diffuse five lobe interlobular septal thickening is present. There are no suspicious pulmonary lesions. Pleura: Small left pleural effusion. No definite pneumothorax identified. Upper abdomen: There is no significant upper abdominal pathology. Status post cholecystectomy. Contrast medium within the urinary tract collecting system present. Negative for free air. Subcutaneous soft tissues: Subcutaneous emphysema of the supraclavicular soft tissues and of the anterior chest wall present bilaterally. Bones: The osseous structures appear grossly intact. No suspicious osseous lesions are identified. IMPRESSION: 1. Endotracheal tube in place terminating superior to the level of the jim with incidental note of superior and anterior pneumomediastinum with subcutaneous emphysema of the supraclavicular soft tissues and of the anterior chest wall present. Negative for definite pneumothorax. 2. Negative for pneumomediastinum about the posterior mediastinum or course of the thoracic esophagus. 3. Consolidative atelectasis versus airspace disease of the left lower lobe with small left pleural effusion with five lobe interlobular septal thickening suggesting component of underlying interstitial edema. Narrative Procedure Note Tomer Sinclair MD - 04/08/2025 IMPRESSION: Please see below. Exam: CT CHEST W CONTRAST Date/Time of Exam: 04/08/2025 5:00 PM Reason For Exam: See Diagnosis. Diagnosis: See Reason for Exam. Technique: CT of the chest was performed following the administration of intravenous contrast. Post-processing was performed including sagittal and coronal reformations . Contrast (if used): IOPAMIDOL 61 % INTRAVENOUS SOLUTION (MULTI-DOSE BULK PACK) Given:85 mL. Comparison: CT soft tissue neck 04/08/2025.. FINDINGS: Endotracheal tube terminates superior to the level of the jim. Thoracic inlet: There are low-attenuation thyroid nodules which could be better assessed with ultrasound if clinically indicated. The thoracic inlet is otherwise within normal limits. Lymph Nodes: There are no pathologic axillary, mediastinal or hilar lymph nodes by size criteria. Thoracic aorta: The thoracic aorta is nonaneurysmal. Heart: The heart is normal in size. There is no pericardial effusion. Pneumomediastinum of the superior and anterior mediastinum present. No pneumomediastinum about the posterior mediastinum or course of the esophagus is present. Tracheobronchial tree: The tracheobronchial tree is within normal limits. Lungs: Consolidative atelectasis versus airspace disease of the left lower lobe present. Diffuse five lobe interlobular septal thickening is present. There are no suspicious pulmonary lesions. Pleura: Small left pleural effusion. No definite pneumothorax identified. Upper abdomen: There is no significant upper abdominal pathology. Status post cholecystectomy. Contrast medium within the urinary tract collecting system present. Negative for free air. Subcutaneous soft tissues: Subcutaneous emphysema of the supraclavicular soft tissues and of the anterior chest wall present bilaterally. Bones: The osseous structures appear grossly intact. No suspicious osseous lesions are identified. IMPRESSION: 1. Endotracheal tube in place terminating superior to the level of the jim with incidental note of superior and anterior pneumomediastinum with subcutaneous emphysema of the supraclavicular soft tissues and of the anterior chest wall present. Negative for definite pneumothorax. 2. Negative for pneumomediastinum about the posterior mediastinum or course of the thoracic esophagus. 3. Consolidative atelectasis versus airspace disease of the left lower lobe with small left pleural effusion with five lobe interlobular septal thickening suggesting component of underlying interstitial edema. Caren Tapia BEBA CT ORDERABLES Final Result * CT SOFT TISSUE NECK W CONTRAST (04/08/2025 5:00 PM CDT) Anatomical Region Laterality Modality Neck Computed Tomogra phy 04/08/2025 4:21 PM CDT Impressions 04/09/2025 7:50 AM CDT IMPRESSION: There is air in the fascial planes of the anterior chest wall and in the neck. The etiology of this finding is uncertain. There is no discrete airway perforation detected on this CT. Direct visualization may be of additional utility. Left thyroid nodule with calcifications which could be further delineated with ultrasound. Narrative 04/09/2025 7:50 AM CDT Exam: CT SOFT TISSUE NECK W CONTRAST Date/Time of Exam: 04/08/2025 5:00 PM Reason For Exam: laryngeal versus espohageal injury associated with difficult intubated at OSH. Diagnosis: See Reason for Exam. Technique: CT of the soft tissues of the neck was performed following the administration of intravenous contrast. Contrast: Isovue-300 Comparison: None. Findings: I agree with the preliminary report. The preliminary report is attached below with possible minor/noncritical modifications. ++++++++++++++++++++ IMPRESSION FINDINGS: Tubes, catheters and devices: There is an ET tube partially imaged with tip seen on the dedicated chest CT. Paranasal sinuses: There is mucosal thickening throughout the paranasal sinuses with air-fluid levels in the maxillary and sphenoid sinuses. Salivary glands: Normal. Glands are normal in size. Pharynx: The nasopharynx and oropharynx are coapted. Larynx: Unremarkable. Epiglottis is normal. Thyroid: Dominant left thyroid nodule with calcifications. Trachea: Visualized trachea is unremarkable. Lungs: Unremarkable as visualized. Lymph nodes: Unremarkable. No lymphadenopathy. Bones/joints: Unremarkable. No acute fracture. There is multilevel degenerative disc disease and facet osteoarthritis. Soft tissues: There is air in the fascial planes of the anterior chest wall and in the neck. Procedure Note Cole Dimas MD - 04/09/2025 Exam: CT SOFT TISSUE NECK W CONTRAST Date/Time of Exam: 04/08/2025 5:00 PM Reason For Exam: laryngeal versus espohageal injury associated with difficult intubated at OSH. Diagnosis: See Reason for Exam. Technique: CT of the soft tissues of the neck was performed following the administration of intravenous contrast. Contrast: Isovue-300 Comparison: None. Findings: I agree with the preliminary report. The preliminary report is attached below with possible minor/noncritical modifications. ++++++++++++++++++++ IMPRESSION FINDINGS: Tubes, catheters and devices: There is an ET tube partially imaged with tip seen on the dedicated chest CT. Paranasal sinuses: There is mucosal thickening throughout the paranasal sinuses with air-fluid levels in the maxillary and sphenoid sinuses. Salivary glands: Normal. Glands are normal in size. Pharynx: The nasopharynx and oropharynx are coapted. Larynx: Unremarkable. Epiglottis is normal. Thyroid: Dominant left thyroid nodule with calcifications. Trachea: Visualized trachea is unremarkable. Lungs: Unremarkable as visualized. Lymph nodes: Unremarkable. No lymphadenopathy. Bones/joints: Unremarkable. No acute fracture. There is multilevel degenerative disc disease and facet osteoarthritis. Soft tissues: There is air in the fascial planes of the anterior chest wall and in the neck. IMPRESSION: There is air in the fascial planes of the anterior chest wall and in the neck. The etiology of this finding is uncertain. There is no discrete airway perforation detected on this CT. Direct visualization may be of additional utility. Left thyroid nodule with calcifications which could be further delineated with ultrasound. us Caren Tapia NP CT ORDERABLES Final Result * EXTRA TUBE (URINE CAZARES) (04/08/2025 11:34 AM CDT) Urine (Urine, indwelling (Saenz) catheter) Collection / Unknown 04/08/2025 11:34 AM CDT 04/08/2025 11:43 AM CDT Caren Tapia MULTIFOCAL [employer]TON GRINDER URINE ORDERABLES Maria l Result [facility] CLIA # [id number] [address] [address] [place] [address] * (ABNORMAL) DRUG SCREEN, URINE (04/08/2025 11:34 AM CDT) [facility] AMPHETAMINE QUAL, URINE Negative Negative 04/08/2025 12:16 PM CDT [facility] BARBITURATE QUAL, URINE Negative Negative 04/08/2025 12:16 PM CDT [facility] BENZODIAZEPINE QUAL, URINE Presumptive Positive(A) Negative 04/08/2025 12:16 PM CDT [facility] COCAINE QUAL URINE Negative Negative 04/08/2025 12:16 PM CDT [facility] OPIATE QUAL, URINE Negative Negative 04/08/2025 12:16 PM CDT [facility] CANNABINOIDS QUAL, URINE Negative Negative 04/08/2025 12:16 PM CDT [facility] OXYCODONE QUAL, URINE Negative Negative 04/08/2025 12:16 PM CDT [facility] METHADONE QUAL, URINE Negative Negative 04/08/2025 12:16 PM CDT [facility] FENTANYL QUAL, URINE Presumptive Positive(A) Negative 04/08/2025 12:16 PM CDT [facility] CREATININE, URINE 87.6 40.0 - 278.0 mg/dL 04/08/2025 12:16 PM T [facility] Comment:Reference Range vari es with fluid intake and diet. Urine (Urine, indwelling (Saenz) catheter) Collection / Unknown 04/08/2025 11:34 AM CDT 04/08/2025 11:44 AM CDT Narrative [facility] - 04/08/2025 12:16 PM CDT This test is a qualitative screen. The presumptive positive results should not be used for legal purposes. If confirmation of results is desired, the lab must be contacted without delay. Drug Ref. Range Screening Threshold Amphetamines Negative 500 ng/mL Barbiturates Negative 200 ng/mL Benzodiazepines Negative 100 ng/mL Cannabinoids Negative 50 ng/mL Cocaine Metabolite Negative 300 ng/mL Opiate Negative 300 ng/mL Oxycodone Negative 100 ng/mL Methadone Negative 300 ng/mL Fentanyl Negative 5 ng/mL Caren Tapia MULTIFOCAL [employer]TON GR[employer]ER URINE ORDERABLES Maria l Result [facility] CLIA # [id number] [address] [place] [address] [place] [address] * (ABNORMAL) URINALYSIS WITH REFLEX MICROSCOPIC (04/08/2025 11:34 AM CDT) COLOR UA Pale Yellow Pale to Dark Yellow 04/08/2025 11:49 AM [facility] CLARITY UA Clear Clear 04/08/2025 11:49 AM [facility] SPECIFIC GRAVITY UA 1.018 1.003 - 1.035 04/08/2025 11:49 AM T [facility] PH UA 6.0 5.0 - 8.0 04/08/2025 11:49 AM [facility] LEUKOCYTE ESTERASE UA 1+(A) Negative 04/08/2025 11:49 AM [facility] NITRITE UA Positive(A) Negative 04/08/2025 11:49 AM [facility] PROTEIN UA Trace(A) Negative 04/08/2025 11:49 AM [facility] GLUCOSE UA Negative Negative 04/08/2025 11:49 AM [facility] KETONES UA Negative Negative 04/08/2025 11:49 AM [facility] UROBILINOGEN UA <2.0 <2.0 mg/dL 11:49 AM [facility] BILIRUBIN UA Negative Negative 04/08/2025 11:49 AM [facility] BLOOD UA Negative Negative 04/08/2025 11:49 AM [facility] WBC UA 6-10(A) 0 - 2 /hpf 04/08/2025 11:49 AM CDT [facility] RBC UA 0-2 0 - 2 /hpf 04/08/2025 11:49 AM CDT [facility] BACTERIA UA 1+(A) Negative /hpf 04/08/2025 11:49 AM CDT [facility] EPITHELIAL CELLS, URINE 0-5 0 - 5 /hpf 04/08/2025 11:49 AM CDT [facility] Urine (Urine, indwelling (Saenz) catheter) Collection / Unknown 04/08/2025 11:34 AM CDT 04/08/2025 11:43 AM CDT Caren Tapia M[employer]ER URINE ORDERABLES Maria burrell Result [facility] CLIA # [id number] [address] [place] [address] * (ABNORMAL) URINE CULTURE (04/08/2025 11:34 AM CDT) CULTURE ESCHERICHIA COLI(A) CARLINE MCG/ML 04/11/2025 7:39 AM CDT [facility] Urine (Urine, indwelling (Saenz) catheter) Collection / Unknown 04/08/2025 11:34 AM CDT 04/08/2025 11:43 AM CDT Narrative Organism Antibiotic Method Susceptibility Escherichia coli CEFAZOLIN CARLINE MCG/ML >=64 mcg/mL: Resistant Escherichia coli CEFEPIME CARLINE MCG/ML 2 mcg/mL: Susceptible Escherichia coli CEFTRIAXONE CARLINE MCG/ML >=64 mcg/mL: Resistant Escherichia coli CEFTAZIDIME CARLINE MCG/ML <=1 mcg/mL: Susceptible Escherichia coli GENTAMICIN CARLINE MCG/ML <=1 mcg/mL: Susceptible Escherichia coli TOBRAMYCIN CARLINE MCG/ML <=1 mcg/mL: Susceptible Escherichia coli CIPROFLOXACIN CARLINE MCG/ML >=4 mcg/mL: Resistant Escherichia coli LEVOFLOXACIN CARLINE MCG/ML >=8 mcg/mL: Resistant Escherichia coli TRIMETHOPRIM/ SULFAMETHOXAZOLE CARLINE MCG/ML <=20 mcg/mL: Susceptible Escherichia coli NITROFURANTOIN CARLINE MCG/ML <=16 mcg/mL: Susceptible Escherichia coli AMPICILLIN CARLINE MCG/ML >=32 mcg/mL: Resistant Escherichia coli AMPICILLIN/ SULBACTAM CARLINE MCG/ML 16 mcg/mL: Intermediate Escherichia coli PIPERACILLIN/ TAZOBACTAM CARLINE MCG/ML <=4 mcg/mL: Susceptible Comment:Aminoglycosides shou ld not be used as monotherapy for infections outside the urinary tract. Consultation with an infectious diseases specialist is recommended. Xiomara [employer]inskig[employer]ery OFFICE CLEANER-BC MICROBIOLOGY - GENER AL ORDERABLES Final Result [facility] CLIA # [id number] [address] [place] [address] * EKG 12-LEAD (04/08/2025 10:45 AM CDT) 04/08/2025 10:4 5 AM CDT Narrative INTERFACE SYSTEM - 04/08/2025 1:41 PM CDT [address] [address] Test Date: 2025-04-08 Pat Name: CECE WILLIS Department: 12 Room: [address] [place] [address] Gender: M Dental Surgery Doctor: [id number] : 1970 Requested By: Order Number: [id number] Reading MD: Lillie Landry Measurements Intervals [place] Rate: 79 P: 65 MD: 180 QRS: 95 QRSD: 142 T: 66 QT: 404 QTc: 463 Interpretive Statements Normal sinus rhythm Right bundle branch block Abnormal ECG Electronically Signed On 04-08-2025 13:41:56 CDT by Lillie Landry Procedure Note Provider, Historical - 04/08/[address] [address] Test Date: 2025-04-08 Pat Name: CECE WILLIS Department: 12 Room: [address] [place] [address] Gender: M Dental Surgery Doctor: [id number] : 1970 Requested By: Order Number: [id number] Reading MD: Lillie Landry Measurements Intervals [place] Rate: 79 P: 65 MD: 180 QRS: 95 QRSD: 142 T: 66 QT: 404 QTc: 463 Interpretive Statements Normal sinus rhythm Right bundle branch block Abnormal ECG Electronically Signed On 04-08-2025 13:41:56 CDT by Lillie Landry Tata Romero MD ECG ORDERABLES Final Result INTERFACE SYSTEM Refer to clinic/hospital department * XR ABDOMEN FOR FEEDING TUBE 1 VW (04/08/2025 10:26 AM CDT) Anatomical Region Laterality Modality Abdomen Computed Radiogr aphy 04/08/2025 10:2 6 AM CDT Impressions 04/08/2025 10:53 AM CDT IMPRESSION: See below. Exam: XR ABDOMEN FOR FEEDING TUBE 1 VW Date/Time of Exam: 04/08/2025 10:26 AM Reason For Exam: Check Tube Placement. Diagnosis: See Reason for Exam. Findings: Enteric tube terminates in the left lateral aspect of the stomach. Narrative Procedure Note Tono Priest MD - 04/08/2025 IMPRESSION: See below. Exam: XR ABDOMEN FOR FEEDING TUBE 1 VW Date/Time of Exam: 04/08/2025 10:26 AM Reason For Exam: Check Tube Placement. Diagnosis: See Reason for Exam. Findings: Enteric tube terminates in the left lateral aspect of the stomach. Tata Romero MD DIAGNOSTIC IMAGING ORDERABLES Fi nal Result * LACOSAMIDE LEVEL (04/08/2025 10:26 AM CDT) LACOSAMIDE 5.5 mcg/mL 04/11/2025 4:55 PM CDT [facility] Comment: (Note) Expected concentrations of Lacosamide in patients receiving recommended daily dosages: Up to 15.0 mcg/mL.Toxic range not established. This test was developed and its analytical performance characteristics have been determined by [employer]. It has not been cleared or approved by the FDA. This assay has been validated pursuant to the CLIA regulations and is used for clinical purposes. [facility] [address] [place] [address],[address] [facility] [address] Tyrese Malone MD, PhD Blood Venipuncture / Unknown 04/08/2025 10:26 AM CDT 04/08/2025 10:40 AM CDT Narrative [facility] - 04/11/2025 4:55 PM CDT Performing Organization Information: Site ID: [id number] Name: [facility] Address: [address] [place] [address], [address] [place] [address] Director: Tyrese Malone MD,PhD Tata Romero MD CHEMISTRY ORDERABLES Final Resul t Performing Organization Address City/[facility]/ZIP Co de Phone Number [facility] * LEVETIRACETAM LEVEL (04/08/2025 10:26 AM CDT) Pathologist [facility] LEVETIRACETAM LEVEL 17.8 12.0 - 46.0 g/mL 04/08/2025 11:23 AM CDT [facility] Blood Venipuncture / Unknown 04/08/2025 10:26 AM CDT 04/08/2025 10:40 AM CDT [facility]AT[facility] - 04/08/2025 11:23 AM CDT Note that brivaracetem (Briviact), is known to significantly interfere with this assay. An alternative method should be utilized if therapy involves both levetiracetam and brivaracetem. Tata Romero MD CHEMISTRY ORDERABLES Final Resul t [facility] CLIA # [id number] [address] [address] [place] [address] * PROTIME-INR (04/08/2025 10:26 AM CDT) Pathologist [facility] PROTIME 14.7 12.7 - 14.9 Seconds 04/08/2025 10:55 AM CDT [facility] INR 1.1 0.8 - 1.2 04/08/2025 10:55 AM CDT [facility] Blood Venipuncture / Unknown 04/08/2025 10:26 AM CDT 04/08/2025 10:39 AM CDT [facility] - 04/08/2025 10:55 AM CDT Expected Values for INR: DVT/PE Goal INR 2.5; range 2.0 - 3.0 Valve Replacement Tissue Goal INR 2.5; range 2.0 - 3.0 Valve Replacement Mechanical Goal INR 3.0; range 2.5 - 3.5 POST-UT Goal INR 2.5; range 2.0 - 3.0 or Goal INR 3.0; range 2.5 - 3.5 Atrial Fibrillation Goal INR 2.5; range 2.0 - 3.0 Ischemic Stroke Goal INR 2.5; range 2.0 - 3.0 us Tata Romero MD HEMATOLOGY ORDERABLES Final Resu lt [facility] CLIA # [id number] [address] [place] [address] * PHENYTOIN LEVEL, TOTAL AND FREE (04/08/2025 10:26 AM CDT) [facility] PHENYTOIN TOTAL 12.9 10.0 - 20.0 mg/L 04/13/2025 8:57 AM CDT [facility] PHENYTOIN FREE 1.1 1.0 - 2.0 mg/L 04/13/2025 8:57 AM CDT [facility] Blood Venipuncture / Unknown 04/08/2025 10:26 AM CDT 04/08/2025 10:40 AM CDT Narrative [facility] - 04/13/2025 8:57 AM CDT Performing Organization Information: Site ID: [id number] Name: [facility] Address: [address] [place] [address] Director: Jaleel Beasley MD Performing Organization Information: Site ID: [id number] Name: [employer] [place] Address: [address] [place] Director: Jorge Luis Price M.D.,PhD Site ID: [id number] Name: [facility] Address: [address] [place] [address] Director: Jaleel Beasley MD Tata Romero MD CHEMISTRY ORDERABLES Final Resul t [facility] * (ABNORMAL) TROPONIN (04/08/2025 10:26 AM CDT) TROPONIN T, 5TH GEN 24(H) <=15 ng/L 04/08/2025 11:15 AM CDT [facility] Blood Venipuncture / Unknown 04/08/2025 10:26 AM CDT 04/08/2025 10:40 AM CDT Narrative [facility] - 04/08/2025 11:15 AM CDT Troponin elevated. Tata Romero MD CHEMISTRY ORDERABLES Final Resul t Performing Organization Address City/[facility]/ZIP Co de Phone Number [facility] [employer] [facility] CLIA # [id number] [address] [place] [address] [place] [address] * AMMONIA LEVEL (04/08/2025 10:26 AM CDT) AMMONIA 38.2 16.0 - 60.0 umol/L 04/08/2025 11:09 AM CDT [facility] Blood, venous Venipuncture / Unknown 04/08/2025 10:26 AM CDT 04/08/2025 10:33 AM CDT Tata Romero MD CHEMISTRY ORDERABLES Final Resul t [facility] CLIA # [id number] [address] [address] [place] [address] * (ABNORMAL) COMPREHENSIVE METABOLIC PANEL (04/08/2025 10:26 AM CDT) Only the most recent of2 resultswithin the time period is included. SODIUM 135(L) 136 - 145 mmol/L 04/08/2025 11:20 AM CDT [facility] POTASSIUM 4.0 3.5 - 5.1 mmol/L 04/08/2025 11:20 AM CDT [facility] CHLORIDE 101 98 - 107 mmol/L 04/08/2025 11:20 AM CDT [facility] CO2 21(L) 22 - 29 mmol/L 04/08/2025 11:20 AM CDT [facility] CALCIUM 8.6 8.6 - 10.0 mg/dL 04/08/2025 11:20 AM CDT [facility] BUN 8 6 - 20 mg/dL 04/08/2025 11:20 AM CDT [facility] CREATININE 0.81 0.67 - 1.17 mg/dL 04/08/2025 11:20 AM T [facility] GLUCOSE 144(H) 74 - 99 mg/dL 04/08/2025 11:20 AM T [facility] TOTAL PROTEIN 6.8 6.4 - 8.3 g/dL 04/08/2025 11:20 AM T [facility] ALBUMIN 3.7 3.5 - 5.2 g/dL 04/08/2025 11:20 AM CDT [facility] BILIRUBIN TOTAL 0.6 0.0 - 1.0 mg/dL 04/08/2025 11:20 AM CDT [facility] ALKALINE PHOSPHATASE 127 40 - 129 U/L 04/08/2025 11:20 AM T [facility] AST 40 10 - 50 U/L 04/08/2025 11:20 AM CDT [facility] Comment:Hemolysis present. R esult may be falsely elevated. ALT 23 <=50 U/L 04/08/2025 11:20 AM CDT [facility] GFR >60 >=60 mL/min/1.7 3 sq meter 04/08/2025 11:20 AM CDT [facility] Comment:eGFR calculated with 2020 CKD-EPI equation. Vegetarian diet, extremely high or low muscle mass, and may affect results. Cystatin C with Glomerular Filtration Rate is a suitable alternative for these patients. ANION GAP 13 9 - 20 mmol/L 04/08/2025 11:20 AM CDT [facility] Blood Venipuncture / Unknown 04/08/2025 10:26 AM CDT 04/08/2025 10:40 AM CDT Tata Romero MD CHEMISTRY ORDERABLES Final Resul t [facility] CLIA # [id number] [address] [place] [address] * POC LACTIC ACID (04/08/2025 10:10 AM CDT) LACTIC ACID POC 1.7 <=2.0 mmol/L 04/08/2025 10:10 AM CDT [facility] SPECIMEN SOURCE, GASES POC Arterial 04/08/2025 10:10 AM CDT [facility] PUN SITE POC ART PUNCT 04/08/2025 10:10 AM CDT [facility] Blood 04/08/2025 10:1 0 AM CDT 04/08/2025 10:12 AM CDT Narrative [facility] - 04/08/2025 10:10 AM CDT References ranges displayed are for Arterial samples. Tata Romero MD POINT OF CARE TESTING Final Resu lt Performing Organization Address City/State/[facility] Co de Phone Number [facility] # [id number] [address] [address] [place] [address] from Last 3 Months Insurance MEDICAID [place]ARE PART A AND B * Guarantor: CECE WILLIS Rich Account Type Relation to Patient Date of Phone Billing Address Personal/Family [address] [place] [address] RX [employer] Member Subscriber Plan / Payer (Ef fective 2021-Present) Name:Cece Willis Relation to Subscriber:Self Name:Cece Willis Payer ID:Not on file Type:RX Commercial Address: [address] Advance Directives For more information, please contact: [phone] * Full Code (Latest Code Status on File) Date Activated Date Inactivated Comments 04/08/2025 9:45 AM 04/12/2025 3:33 PM * Full Code Date Activated Date Inactivated Comments 12/22/2022 6:04 AM 12/24/2022 3:53 PM * Full Code Date Activated Date Inactivated Comments 01/23/2022 2:51 AM 01/24/2022 3:03 PM Care Teams Paper Tube 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
[2025-07-02] MEDS: propofol 10 mg/mL SDV 20 mL 100 MG IVP (10:26)
[2025-07-02] MEDS: propofol 1,000 MG/100 ML INJ 25.31 MG IV (10:30)
--- NOTE | 2025-07-02 10:37 | PC.NURSE ---
100MG PROPOFOL GIVEN BY DR. PASTOR IVP. REMAINING 100MG PROPOFOL WASTED BY THIS NURSE AND YUKI KHAN.
[2025-07-02 11:01] LABS: Hematocrit 41.7 % (37-53); Hemoglobin 14.30 g/dL (11.27-16.99); Mean Corpuscular HGB Conc 34.3 g/dL (30-55); Mean Corpuscular Hemoglobin 32.4 pg (27-33); Mean Corpuscular Volume 94.6 fl (82-101); Nucleated Red Blood Cells % 0 %; Platelet Count 222 10^3/cmm (157-399); Red Blood Count 4.41 10^6/uL (3.85-5.65)
--- NOTE | 2025-07-02 11:07 | W.ED.SEIZURE ---
HPI - Seizure General: Chief Complaint: Seizure Stated Complaint: seizures History of Present Illness: HPI Narrative: 54-year-old male presents to the emergency room he was seizing for 40 minutes prior to arrival EMS witnessed seizures he gave 5 of Versed they were unable to get IV access when he arrives here he is in respiratory distress with gurgling respirations choking. He was emergently intubated shortly after arrival. He has a known history of seizures. He is on Vimpat and Keppra. As well as phenytoin. Patient arrives there is no family available to get history from. History is from EMS and old records Seizure History: Yes Related Data Home Medications ?Medication ?Instructions ?Recorded ?Confirmed Compression hose 07/13/21 07/02/25 L.acidop,casei,lactis,rham-B.lact,kory 1 cap PO BID 01/08/25 07/02/25 625 mg (10 billion cell) capsule (Advanced Probiotic) lamotrigine 200 mg tablet 200 mg PO BID 07/02/25 07/02/25 Previous Rx's ?Medication ?Instructions ?Recorded Compression hose #1 ea 09/21/20 Diabetic Shoes with 3 pairs of #1 ea 03/23/22 inserts lacosamide 50 mg tablet 300 mg (6 x 50 mg) PO BID 90 days 03/07/25 #1,080 tabs levetiracetam 1,000 mg tablet 2,000 mg (2 x 1,000 mg) PO BID 03/07/25 #120 tabs phenytoin 50 mg chewable tablet 300 mg (6 x 50 mg) PO Q8H #500 tabs 03/07/25 atorvastatin 40 mg tablet 40 mg PO BEDTIME 30 days #30 tabs 04/25/25 honey 80 % topical gel (MediHoney 1 applic topical BID #44 mL 04/25/25 (honey)) trazodone 100 mg tablet 100 mg PO BEDTIME #30 tabs 04/25/25 valsartan 40 mg tablet (Diovan) 40 mg PO DAILY #30 tabs 04/25/25 Allergies Allergy/AdvReac Type Severity Reaction Status Date / Time No Known Allergies Allergy Verified 06/07/25 14:58 Review of Systems General: Reports: ROS unobtainable due to endotracheal tube and ROS unobtainable due to medical condition PFS ED PFSH: Medical History Venous stasis dermatitis C. difficile colitis Symptomatic cholelithiasis Status epilepticus Developmental disorder Frontal lobe epilepsy Cellulitis of oral soft tissues Endotracheally intubated Status epilepticus Generalized epilepsy Morbid obesity Hypertension Intellectual disability Peripheral vascular disease Leukocytosis Surgical History History of laparoscopic cholecystectomy History of total colectomy August 2022 S/P vein stripping Family History Father Cancer Lung cancer Mother CAD (coronary artery disease) Other Diabetes Heart disease Hypertension Denies family history of Stroke Social History Smoking and tobacco/nicotine status: never used tobacco/nicotine Second hand smoke exposure: No Alcohol intake: never Substance/Drug Use: never Adopted: No Caregiver/support person: Yes Lives independently: No Household members: family Housing: House Marital status: Single Number of children: 0 service: No Current occupational status: disabled Current occupation: disabled Do you think of yourself as: Straight/Heterosexual Current gender identity: Male Physical Exam HENMT: COMMON NORMALS: normocephalic, atraumatic and hearing grossly normal bilaterally HEAD & SCALP: normocephalic and atraumatic Cardio: COMMON NORMALS: regular rate, regular rhythm and No murmurs present (Cardio) RATE: regular rate RHYTHM: regular rhythm GI: COMMON NORMALS: Soft to palpation and No hepatosplenomegaly present AUSCULTATION: Yes normoactive bowel sounds PALPATION: Yes Soft to palpation, No Tenderness to palpation present (GI), No Guarding due to palpation present (GI) and Yes No hepatosplenomegaly present Extremity: COMMON NORMALS: normal to inspection, capillary refill normal, no clubbing, cyanosis or edema, no calf tenderness and no pedal edema Skin: COMMON NORMALS: no rashes or lesions noted GENERAL SKIN EXAM: no rashes or lesions noted Procedures Intubation Time out performed: No sedative: Etomidate Mg Given: 30 paralytic: Vecuronium Mg Given: 10 Laryngoscope: fiber optic video scope ET Tube Size: 8 ET Tube Uncuffed: No Tube Secured Depth (cm): 24 Tube Secured Location: teeth Tube Placement Confirmation: visualized tube passing through cords, equal breath sounds bilaterally, no breath sounds over epigastrium and confirmation by capnometry Patient Tolerated Procedure: well Additional Comments: Chest x-ray shows tip of ET tube high on the clavicles advance 2 cm well-positioned at this point Course Vital Signs: Vital signs: Vital Signs Pulse Rate 79 07/02/25 14:45 Respiratory Rate 16 07/02/25 14:38 Blood Pressure 112/77 07/02/25 14:45 Pulse Oximetry 98 07/02/25 14:45 Oxygen Delivery Me thod Mechanical Ventil ation 07/02/25 14:45 Oxygen Flow Rate 15 07/02/25 10:25 Fraction of Inspir ed Oxygen 40 07/02/25 14:38 MDM - Seizure MDM Narrative Medical decision making narrative: Status epilepticus in a patient with a known history of difficult seizure control with frontal lobe epilepsy. He is on Vimpat Keppra and phenytoin we reloaded him with Vimpat and Keppra. We have ordered levels on Vimpat Keppra and phenytoin. He is currently intubated and sedated. Will transfer him to [place] so they can do monitoring on the propofol. Patient has been accepted at [facility] in [place] we are waiting on bed assignment stable at this time continue on propofol. No further seizure activity Lab Data 07/02/25 10:51 07/02/25 10:51 Labs: Radiology Impressions Chest X-Ray 07/02/25 10:23 Impression: Satisfactory placement of endotracheal tube and nasogastric tube. Laboratory Results WBC 36.03 10^3/uL (3.29-11.43) H* 07/02/25 10:51 RBC 4.41 10^6/uL (3.85-5.65) 07/02/25 10:51 Hgb 14.30 g/dL (11.27-16.99) 07/02/25 10:51 Hct 41.7 % (37-53) 07/02/25 10:51 MCV 94.6 fl (82-101) 07/02/25 10:51 MCH 32.4 pg (27-33) 07/02/25 10:51 MCHC 34.3 g/dL (30-55) 07/02/25 10:51 RDW 15.8 % (12.1-15.1) H 07/02/25 10:51 Plt Count 222 10^3/cmm (157-399) 07/02/25 10:51 MPV 9.2 fL (7.4-10.4) 07/02/25 10:51 Neut % (Auto) 87.3 % 07/02/25 10:51 Lymph % (Auto) 2.3 % 07/02/25 10:51 [place] % (Auto) 8.4 % 07/02/25 10:51 Eos % (Auto) 0.7 % 07/02/25 10:51 Baso % (Auto) 0.3 % 07/02/25 10:51 Neut # (Auto) 31.47 10^3/uL (1.8-7.7) H 07/02/25 10:51 Lymph # (Auto) 0.8 10^3/uL (0.8-4.8) 07/02/25 10:51 [place] # (Auto) 3.0 10^3/uL (0.2-0.9) H 07/02/25 10:51 Eos # (Auto) 0.3 10^3/uL (0.0-0.8) 07/02/25 10:51 Baso # (Auto) 0.1 10^3/uL (0.0-0.1) 07/02/25 10:51 Nucleated RBC % (auto) 0 % 07/02/25 10:51 Nucleated RBCs # 0.0 /100WBC 07/02/25 10:51 Specimen Type Arterial 07/02/25 11:32 Sample Site Brachial, left 07/02/25 11:32 ABG pH 7.38 (7.35-7.45) 07/02/25 11:32 ABG pCO2 38.1 mmHg (35-45) 07/02/25 11:32 ABG pO2 357.0 mmHg (80.0-100.0) H 07/02/25 11:32 ABG PO2/FiO2 Ratio 357 07/02/25 11:32 ABG HCO3 22.7 mmol/L (22-26) 07/02/25 11:32 ABG O2 Saturation > 99.1 07/02/25 11:32 ABG Base Excess -2.1 mmol/L (-2.0-2.0) L 07/02/25 11:32 Ricardo Test N/a 07/02/25 11:32 A-a O2 Gradient 39.7 mmHg (5-10) H 07/02/25 11:32 Hematocrit 43.6 % (42-52) 07/02/25 11:32 Hgb O2 Saturation 98.3 % (95-100) 07/02/25 11:32 Carboxyhemoglobin 0.9 %THgb (0.4-20.1) 07/02/25 11:32 Methemoglobin 1.1 % (0.4-1.5) 07/02/25 11:32 Total Hemoglobin 14.2 g/dL (14-18) 07/02/25 11:32 Sodium 138.0 mmol/L (131-143) 07/02/25 11:32 Potassium 3.4 mmol/L (3.5-5.0) L 07/02/25 11:32 Glucose 144.0 mg/dL (70-115) H 07/02/25 11:32 Ionized Calcium 1.2 mmol/L (1.1-1.4) 07/02/25 11:32 O2 Delivery Device Vent 07/02/25 11:32 FiO2 100.0 % 07/02/25 11:32 Tidal Volume 0.55 07/02/25 11:32 PEEP 8.0 cmH20 07/02/25 11:32 Printer Technician ID Amh 07/02/25 11:32 Sodium 134 mmol/L (136-145) L 07/02/25 10:51 Potassium 3.7 mmol/L (3.5-5.1) 07/02/25 10:51 Chloride 101 mmol/L (98-107) 07/02/25 10:51 Carbon Dioxide 21 mmol/L (22-29) L 07/02/25 10:51 Anion Gap 15.7 (5-19) 07/02/25 10:51 BUN 18 mg/dL (6-20) 07/02/25 10:51 Creatinine 0.9 mg/dL (0.7-1.2) 07/02/25 10:51 GFR Calculation 88.3 mL/min (90-130) L 07/02/25 10:51 Glucose 179 mg/dL (65-115) H 07/02/25 10:51 Calculated Osmolality 284 mOsm/kg (285-295) L 07/02/25 10:51 Calcium 8.9 mg/dL (8.5-10.5) 07/02/25 10:51 Magnesium 2.1 mg/dL (1.7-2.3) 07/02/25 10:51 Total Bilirubin 0.5 mg/dL (0.15-1.2) 07/02/25 10:51 AST 26 U/L (0-40) 07/02/25 10:51 ALT 22 U/L (0-41) 07/02/25 10:51 Alkaline Phosphatase 147 U/L (40-130) H 07/02/25 10:51 Total Protein 7.3 g/dL (6.6-8.7) 07/02/25 10:51 Albumin 3.9 g/dL (3.5-5.2) 07/02/25 10:51 Globulin 3.4 g/dL (1.3-4.6) 07/02/25 10:51 Urine Color Dark yellow (Yellow) A 07/02/25 12: Urine Appearance Turbid (CLEAR) A 07/02/25 12:27 Urine pH 5.0 (5-7) 07/02/25 12: Ur Specific Man 1.023 (1.005-1.030) 07/02/25 12: Urine Protein 2+ (Negative) A 07/02/25 12: Urine Glucose (UA) Negative (Normal) 07/02/25 12: Urine Ketones Trace (Negative) 07/02/25 12: Urine Blood 2+ (Negative) A 07/02/25 12: Urine Nitrate Positive (Negative) A 07/02/25 12: Urine Bilirubin 1+ (Negative) H 07/02/25 12:27 Urine Urobilinogen 0.2 mg/dL (Negative) 07/02/25 12: Ur Leukocyte Esterase 2+ (Negative) A 07/02/25 12: Urine RBC 0-2 /hpf (0-2) 07/02/25 12:27 Urine WBC >100 /hpf (0-5) H 07/02/25 12:27 Ur Squamous Epith Cells 0-5 /hpf (0-5) 07/02/25 12:27 Amorphous Sediment Trace /hpf 07/02/25 12:27 Urine Bacteria Trace /hpf (NONE) 07/02/25 12:27 Hyaline Casts 28.13 /lpf 07/02/25 12:27 Ur Oval Fat Bodies Rare /hpf 07/02/25 12:27 Phenytoin 15.3 ug/mL (10-20) 07/02/25 10:51 All radiology interpretation(s) finalized by discharge Discharge Plan Discharge Patient Disposition: Xfer Short-Term Hosp Clinical Impression: Status epilepticus, Intellectual disability, Patrick's paralysis (postepileptic), Frontal lobe epileptic seizure Condition: Stable Referrals: Candi Latif, BAKERY MANAGER-C [Primary Care Provider, [facility]] Print Language: Polish Coding Level of Care Code ED Echocardiography Radiology Technologist for Antonio Avila
[2025-07-02 11:16] LABS: Alanine Aminotransferase 22 U/L (0-41); Albumin Level 3.9 g/dL (3.5-5.2); Alkaline Phosphatase 147 U/L (40-130); Anion Gap 15.7 (5-19); Aspartate Amino Transferase 26 U/L (0-40); Blood Urea Nitrogen 18 mg/dL (6-20); Calcium 8.9 mg/dL (8.5-10.5); Carbon Dioxide 21 mmol/L (22-29); Chloride 101 mmol/L (98-107); Creatinine Clr Calc Pharmacy 139.8788; Globulin 3.4 g/dL (1.3-4.6); Glucose 179 mg/dL (65-115); Magnesium 2.1 mg/dL (1.7-2.3); Osmolality Calculated 284 mOsm/kg (285-295); Potassium 3.7 mmol/L (3.5-5.1); Sodium 134 mmol/L (136-145); Total Protein 7.3 g/dL (6.6-8.7)
[2025-07-02 11:18] LABS: White Blood Count 36.03 10^3/uL (3.29-11.43)
[2025-07-02 11:44] LABS: ABG PCO2 38.1 mmHg (35-45); ABG PH Result 7.38 (7.35-7.45); Alveolar-Arterial Oxygen Gradi 39.7 mmHg (5-10); Arterial Blood Gas Hematocrit 43.6 % (42-52); Blood Gas Operator Identificat AMH; Blood Gas Sample Site Brachial, left; Blood Gas Sample Type Arterial; Blood Gas Tidal Volume 0.55; Carboxyhemoglobin 0.9 %THgb (0.4-20.1); Glucose Level-ABG 144.0 mg/dL (70-115); HCO3 ABG 22.7 mmol/L (22-26); Ionized Calcium Level - ABG 1.2 mmol/L (1.1-1.4); Methemoglobin 1.1 % (0.4-1.5); Oxygen Saturation ABG > 99.1; PEEP 8.0 cmH20; PO2 ABG 357.0 mmHg (80.0-100.0); PO2 FiO2 Ratio Arterial Blood 357; Potassium Level - ABG 3.4 mmol/L (3.5-5.0); Sodium Level - ABG 138.0 mmol/L (131-143)
[2025-07-02] MEDS: piperacillin-tazobactam 3.375 GM in sodium chloride 0.9% (plus) 50 ML IV (12:10)
[2025-07-02 12:48] LABS: Glucose Urine UA Negative (Normal); Nitrate Urine Positive (Negative); Specific Gravity, Urine 1.023 (1.005-1.030)
[2025-07-02] MEDS: propofol 1,000 MG/100 ML INJ 46.4 MG IV (12:51)
[2025-07-02 12:53] LABS: Add Urine Microscopic? YES
[2025-07-02] MEDS: levETIRAcetam 1,000 MG/100 ML PREMIX 400 MG IV ×2 (12:59)
[2025-07-02 13:33] LABS: UA Slide Review UA Slide Review Perf
[2025-07-02 13:34] LABS: Oval Fat Bodies Urine RARE /hpf
[2025-07-03 12:06] LABS: Levetiracetam Immunoassy 44.8 mcg/mL (6.0-46.0)
== END 2025-07-02 16:17 | disposition short-term general hospital (02) ==
PROVIDERS: Emergency Provider Family Medicine; PCP Nurse Practitioner
DX: G40.801 Other epilepsy, not intractable, with status epilepticus (principal); G83.84 Todd's paralysis (postepileptic); F79 Unspecified intellectual disabilities; I10 Essential (primary) hypertension
CPT/HCPCS: 31500; 36415; 36600; 71045; 80051; 80053; 80177; 80185; 80299; 81001; 82330; 82805; 83735; 85025; 87070; 87077; 87086; 87186; 87205; 94002; 94799; 96365; 96366; 96367; 96375; 99291; C9254; J1953; J2543; J2704; J3490; J9999